=== PATIENT | female | born 1955 | race Caucasian/White ===

== ENCOUNTER 2023-04-02 08:25 | Day surgery (SDC) | payer MEDICARE, SELFPAY ==
[2023-02-18 15:01] VITALS: BMI 31.0
[2023-04-02 09:36] VITALS: BP 133/71; PULSE 79; RESP 16; TEMP 36.2; O2SAT 97; BMI 31.7
[2023-04-02 09:50] LABS: Glucose Point of Care 207 mg/dl (65-105)
[2023-04-02] MEDS: LACTATED RINGERS 1,000 ML 150 ML IV CONT (09:51)
--- NOTE | 2023-04-02 10:05 | WPDANESEPPF ---
Anes - Initial Pre Proc Eval Procedure: Operation Date: 04/02/23 11:00 Proposed Procedures p Diagnostic Colonoscopy - Demar Napier MD Date/Time: 04/02/23 10:05 Surgeon: Demar Napier MD Pre Op Diagnosis: RLQ Pain, LLQ Pain, Other Fecal Abnormalities Patient Data Age: 67 Gender: F Height: 1.52 m Weight: 73.7 kg Last Vital Signs Temp 36.2 C L 04/02/23 09:36 Pulse 79 04/02/23 09:36 Resp 16 04/02/23 09:36 BP 133/71 04/02/23 09:36 Pulse Ox 97 04/02/23 09:36 O2 Del Method Room Air 04/02/23 09:36 Allergies Allergy/AdvReac Type Severity Reaction Status Date / Time naproxen AdvReac Itching Verified 04/02/23 09:34 Sulfa (Sulfonamide AdvReac Itching Verified 04/02/23 09:34 Antibiotics) Home Medications Medication Instructions Recorded Confirmed Type atorvastatin 40 mg tablet 40 mg PO DAILY 12/20/22 04/02/23 History furosemide 20 mg tablet 20 mg PO QAM 12/20/22 04/02/23 History levothyroxine 125 mcg tablet 125 mcg PO DAILY 12/20/22 04/02/23 History metformin 500 mg tablet,extended 500 mg PO DAILY 12/20/22 04/02/23 History release 24 hr sertraline 100 mg tablet 100 mg PO DAILY 12/20/22 04/02/23 History clopidogrel 75 mg tablet 75 mg PO DAILY 12/26/22 04/02/23 History Laboratory Tests 04/02/23 09:48 POC Capillary Glucose 207 H mg/dl (65-105) Patient hx anesthesia problems: none Family hx anesthesia problems: none Results Review: All pre-operative results and documents have been reviewed as part of the pre-operative evaluation. [facility] Past Medical History Medical History Allergies Bilateral lower abdominal cramping Bloating symptom CAD (coronary artery disease) Diabetes Encounter for screening colonoscopy History of Clostridium difficile infection Hx of blood clots Hypothyroidism Loose stools Tobacco use Surgical History Surgical History (Updated 04/02/23 @ 10:17 by Didier Lugo DO) History of coronary artery stent placement x1 Hx of cholecystectomy Family History Family History (Updated 12/26/22 @ 14:03 by Vi Roman MA) Father Diabetes mellitus Cancer Mother Diabetes mellitus Social History Social History (Updated 12/26/22 @ 14:04 by Vi Roman MA) Smoking status: Current every day smoker Tobacco type: cigarettes Alcohol intake: never Substance use: never Substance use type: does not use Living arrangements: alone Spiritual care concerns: No Anes - Eval Final PreProcedure Day of Procedure 04/02/23 10:05 Patient weight: obese Heart: regular rate and rhythm Lungs: clear to auscultation Airway: Mallampati scale class II Neurological: alert and oriented Last oral intake: >/= 8 hours ASA classification: III Emergent: no Anesthetic plan: proceed Anesthesia type and monitoring: general GIVS and standard monitoring Results Review: All pre-operative results and documents have been reviewed as part of the pre-operative evaluation. Informed Consent: The patient's anesthetic plan and its attendant risks and benefits were discussed with the patient/family/POA. Questions were solicited and answers provided to the satisfaction of the patient/family/POA.
--- NOTE | 2023-04-02 10:06 | SUR.PREOP ---
DR WILSON NOTIFIED OF PT'S BLOOD SUGAR OF 207
--- NOTE | 2023-04-02 10:08 | PM.HPGS ---
History of Present Illness History of Present Illness Consent: Risks, benefits, and alternatives have been discussed and questions answered. Patient agrees to proceed with procedure. Chief complaint: RLQ Pain, LLQ Pain, Other Fecal Abnormalities Narrative: Frances Lazo is a 67 year old female referred for colonoscopy. Patient has a history of C difficile colitis 1 year ago. Patient reports she was hospitalized in August at [facility]. She was told she had enteritis. Patient currently complains of abdominal bloating. She has abdominal distention. Her stools have resolved. She states that she was given no specific diagnosis. Colonoscopy requested this time. 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 Has not tried Gas-X or similar agents. Family history is noncontributory. Review of Systems Review of Systems: Review of systems noncontributory. [facility] Past Medical History Medical History Allergies Bilateral lower abdominal cramping Bloating symptom Diabetes Encounter for screening colonoscopy History of Clostridium difficile infection Hx of blood clots Loose stools Tobacco use Surgical History Surgical History (Updated 12/26/22 @ 14:54 by RUDI Post) Hx of cholecystectomy Family History Family History (Updated 12/26/22 @ 14:03 by Vi Roman MA) Father Diabetes mellitus Cancer Mother Diabetes mellitus Social History Social History (Updated 12/26/22 @ 14:04 by Vi Roman MA) Smoking status: Current every day smoker Tobacco type: cigarettes Alcohol intake: never Substance use: never Substance use type: does not use Living arrangements: alone Spiritual care concerns: No Meds Home Medications and Allergies Home Medications Medication Instructions Recorded Confirmed Type atorvastatin 40 mg tablet 40 mg PO DAILY 12/20/22 04/02/23 History furosemide 20 mg tablet 20 mg PO QAM 12/20/22 04/02/23 History levothyroxine 125 mcg tablet 125 mcg PO DAILY 12/20/22 04/02/23 History metformin 500 mg tablet,extended 500 mg PO DAILY 12/20/22 04/02/23 History release 24 hr sertraline 100 mg tablet 100 mg PO DAILY 12/20/22 04/02/23 History clopidogrel 75 mg tablet 75 mg PO DAILY 12/26/22 04/02/23 History Allergies Allergy/AdvReac Type Severity Reaction Status Date / Time naproxen AdvReac Itching Verified 04/02/23 09:34 Sulfa (Sulfonamide AdvReac Itching Verified 04/02/23 09:34 Antibiotics) Vital Signs Vital Signs - 24 hr 04/02/23 09:36 Temperature 97.2 F L Pulse Rate 79 Respiratory Rate 16 Blood Pressure 133/71 Pulse Oximetry 97 Oxygen Delivery Room Air Exam Narrative: Physical exam reveals patient signs stable. HEENT exam is unremarkable. Patient is anicteric. Lungs are clear to auscultation and percussion. Heart is without murmur or extra sounds. Abdomen bowel sounds are present soft nontender with no hepatosplenomegaly. Digital external rectal exam normal. Assessment and Plan Assessment and plan (1) Encounter for screening colonoscopy: Code(s): Z12.11 - Encounter for screening for malignant neoplasm of colon Status: Acute Assessment and Plan: Patient presents for screening colonoscopy. She may have postinfectious irritable bowel syndrome. Fiber supplementation with FiberCon and consideration of GasEX for bloating is recommended. Further recommendations may be given after endoscopy. (2) Bloating symptom: Code(s): R14.0 - Abdominal distension (gaseous) Status: Acute (3) Bilateral lower abdominal cramping: Code(s): R10.31 - Right lower quadrant pain; R10.32 - Left lower quadrant pain Status: Acute
[2023-04-02 11:15] VITALS: BP 95/56; PULSE 75; RESP 16; O2SAT 96
[2023-04-02 11:25] VITALS: BP 104/64; PULSE 69; RESP 16; O2SAT 97
--- NOTE | 2023-04-02 11:26 | WPDANESPN ---
Anes - Prog Note Post-Op Date/Time: 04/02/23 11:26 Cardiovascular status: normal Respiratory status: normal Airway patency: baseline Mental status: baseline Post-Op hydration status: normal Vital Signs: Last Vital Signs Temp 36.2 C L 04/02/23 09:36 Pulse 75 04/02/23 11:15 Resp 16 04/02/23 11:15 BP 95/56 L 04/02/23 11:15 Pulse Ox 96 04/02/23 11:15 O2 Del Method Room Air 04/02/23 11:15 Pain Score (VAS): 0 I/O: Intake & Output 04/01/23 04/02/23 04/02/23 23:59 07:59 15:59 Intake Total 400 Balance 400 04/02/23 09:48 POC Capillary Glucose 207 H Post-procedural complaints: none Patient Feedback: Patient satisfied with anesthetic care. Other Findings: Patient vital signs back to baseline. Patient denies nausea and vomiting. Patient's pain under control. Patient OK for discharge.
[2023-04-02 11:35] VITALS: BP 125/91; PULSE 68; RESP 16; O2SAT 99
== END 2023-04-02 11:46 | disposition home or self-care (01) ==
PROVIDERS: PCP Internal Medicine; Visit Provider Internal Medicine Gastroenterology
PROC: 0DJD8ZZ Inspection of Lower Intestinal Tract, Via Natural or Artificial Opening Endoscopic (ICD-10-PCS; CPT 45378; principal; 2023-04-02 11:00)
DX: Z12.11 Encounter for screening for malignant neoplasm of colon (principal); R14.0 Abdominal distension (gaseous); K57.30 Diverticulosis of large intestine without perforation or abscess without bleeding; K64.8 Other hemorrhoids
CPT/HCPCS: 45378

== ENCOUNTER 2023-09-09 15:27 | Outpatient (CLI) | payer MEDICARE, SELFPAY ==
--- NOTE | ~2023-09-09 | XR_ITS ---
XR abdomen/kub 1V Ordering provider: RUDI Post History: . R14.0 - Abdominal distension (gaseous)PAIN WHOLEABDOMEN 6 MO . Comparison: None. FINDINGS: BOWEL: Nonobstructive bowel gas pattern. ORGANOMEGALY: None. SIGNIFICANT PATHOLOGIC CALCIFICATIONS: None. OTHER: No free air is seen under the diaphragm. Degenerative the spine. Mild levoscoliosis. Pubic symphysitis. IMPRESSION: NO ACUTE ABDOMINAL FINDINGS. Reviewed, dictated and finalized at location A.
[2023-09-09 15:56] LABS: Hematocrit 43.7 % (37.0-47.0); Hemoglobin 14.1 g/dL (12.0-15.0); Mean Corpuscular HGB Conc 32.3 g/dl (32-36); Mean Corpuscular Hemoglobin 30.9 pg (26-34); Mean Corpuscular Volume 95.8 fl (80-100); Mean Platelet Volume 11.6 fl (7.4-10.4); Platelet Count Result 220 k/mm3 (150-375); Red Blood Count 4.56 M/mm3 (4.2-5.4); Red Cell Distribution Width 13.3 % (11.5-14.5); White Blood Count 9.5 K/mm3 (4.5-10.0)
[2023-09-09 16:46] LABS: Alanine Aminotransferase 42 U/L (6-35); Albumin Level 4.9 g/dL (3.5-5.1); Alkaline Phosphatase 151 U/L (38-126); Anion Gap 16 mmol/L (4-12); Aspartate Amino Transferase 61 U/L (14-36); Bilirubin,Total 1.3 mg/dL (0.2-1.3); Blood Urea Nitrogen 23 mg/dL (7-17); CRP < 0.5 mg/dL (<1.0); Calcium 9.3 mg/dL (8.4-10.2); Carbon Dioxide 24 mmol/L (22-30); Chloride 97 mmol/L (98-107); Estimated Glomerular Filt Rate > 60; Glucose 399 mg/dL (65-110); Potassium 3.8 mmol/L (3.4-5.0); Sodium 137 mmol/L (137-145)
[2023-09-09 16:58] LABS: Erythrocyte Sedimentation Rate 15 mm/hr (0-20)
[2023-09-12 03:25] LABS: Immunoglobulin A 371 mg/dL (70-320); TTG IGA AB <1.0 U/mL
== END 2023-09-09 15:28 | disposition home or self-care (01) ==
LOC: ANHLAB 15:32
PROVIDERS: PCP Internal Medicine; Visit Provider Nurse Practitioner Family
DX: R14.0 Abdominal distension (gaseous) (principal); R10.9 Unspecified abdominal pain; R19.7 Diarrhea, unspecified; T78.40XA Allergy, unspecified, initial encounter
CPT/HCPCS: 36415; 74018; 80053; 82784; 85027; 85652; 86140; 86364

== ENCOUNTER 2023-09-30 09:37 | Outpatient (NON) | payer MEDICARE, SELFPAY ==
[2023-09-30 11:17] LABS: Toxigenic C. Diff NEGATIVE (NEGATIVE)
[2023-10-01 14:49] LABS: H pylori Ag Stool RESULT: Not Detected
[2023-10-06 06:14] LABS: Fecal Fat, Ql Normal (Normal)
[2023-10-08 22:59] LABS: Pancreatic Elastase, Stool 399 mcg/g
== END 2023-09-30 09:38 | disposition home or self-care (01) ==
LOC: ANHLAB 09:39
PROVIDERS: PCP Internal Medicine; Visit Provider Nurse Practitioner Family
DX: R14.0 Abdominal distension (gaseous) (principal); R10.9 Unspecified abdominal pain; R19.7 Diarrhea, unspecified; Z86.19 Personal history of other infectious and parasitic diseases
CPT/HCPCS: 82653; 82705; 87045; 87269; 87338; 87427; 87449; 87493

== ENCOUNTER 2023-10-14 14:55 | Outpatient (CLI) | payer MEDICARE, SELFPAY ==
[2023-10-14 15:57] LABS: Prothrombin Time 13.3 Seconds (11.1-14.7)
[2023-10-14 15:59] LABS: Iron 140 ug/dL (37-170)
[2023-10-14 16:08] LABS: Percent Iron Saturation 34 % (20-50)
[2023-10-14 16:22] LABS: Hepatitis B Surface Antigen Negative (Negative)
[2023-10-14 16:28] LABS: HAV RESULT Negative (Negative); Hepatitis B Core IgM Result Negative (Negative)
[2023-10-14 16:39] LABS: Hepatitis C Virus Antibody Negative (Negative)
[2023-10-15 14:23] LABS: Ceruloplasmin 25 mg/dL (14-48)
[2023-10-16 04:53] LABS: Hepatitis A Antibody Total NON-REACTIVE (NON-REACTIVE)
[2023-10-20 03:43] LABS: Actin Antibody (IgG) <20 U (<20)
[2023-10-20 09:28] LABS: LKM 1 Antibody <=20.0 U (<=20.0)
[2023-10-21 15:59] LABS: ALT 24 U/L (6-29); Alpha-2-Macroglobulin 387 mg/dL (106-279); Apolipoprotein A1 163 mg/dL (101-198); Fibrosis Score 0.61; Fibrosis Stage F3; GGT 69 U/L (3-65); Haptoglobin 232 mg/dL (43-212); Necroinflammat Act Grade A0; Reference ID 5064161; Total Bilirubin 0.8 mg/dL (0.2-1.2)
[2023-10-23 08:59] LABS: Mitochondrial (M2) Ab (IgG) <20.0 U
== END 2023-10-14 14:56 | disposition home or self-care (01) ==
PROVIDERS: PCP Internal Medicine; Visit Provider Nurse Practitioner Family
DX: R79.89 Other specified abnormal findings of blood chemistry (principal); R10.9 Unspecified abdominal pain
CPT/HCPCS: 36415; 80074; 81596; 82104; 82390; 82728; 83520; 83540; 83550; 85610; 86038; 86039; 86364; 86376; 86708

== ENCOUNTER 2023-10-28 08:02 | Outpatient (CLI) | payer MEDICARE, SELFPAY ==
--- NOTE | ~2023-10-28 | US_ITS ---
Limited Abdominal Sonogram: Real-time sonographic imaging of the right upper quadrant was performed. Clinical History: Abnormal blood chemistry findings Findings: The liver appears echogenic, with no evidence of mass lesion or bile duct dilatation. Live r measures 19.6 cm in length. Main portal vein demonstrates normal direction of flow. The gallbladder is well absent, compatible prior cholecystectomy. The common bile duct measures 5 mm. The visualize d pancreas, aorta, and IVC are unremarkable. Impression: Diffuse fatty infiltration of the liver, with associated hepatomegaly. Reviewed, dictated and finalized at location M. Impression: Diffuse fatty infiltration of the liver, with associated hepatomegaly.
== END 2023-10-28 08:03 | disposition home or self-care (01) ==
PROVIDERS: PCP Internal Medicine; Visit Provider Nurse Practitioner Family
DX: R79.89 Other specified abnormal findings of blood chemistry (principal); K76.0 Fatty (change of) liver, not elsewhere classified
CPT/HCPCS: 76705

== ENCOUNTER 2023-12-04 12:07 | Day surgery (SDC) | payer MEDICARE, SELFPAY ==
[2023-11-26 15:12] VITALS: BMI 30.2
--- NOTE | 2023-12-04 07:01 | WPDANESEPPF ---
Anes - Initial Pre Proc Eval Procedure: Operation Date: 12/04/23 14:00 Proposed Procedures p Esophagogastroduodenoscopy - Demar Napier MD Date/Time: 12/04/23 07:01 Surgeon: Demar Napier MD Pre Op Diagnosis: Abdominal Distension Patient Data Age: 67 Gender: F Height: 1.52 m Weight: 70.307 kg Allergies Allergy/AdvReac Type Severity Reaction Status Date / Time naproxen AdvReac Itching Verified 12/04/23 12:54 Sulfa (Sulfonamide AdvReac Itching Verified 12/04/23 12:54 Antibiotics) Home Medications Medication Instructions Recorded Confirmed Type atorvastatin 40 mg tablet 40 mg PO DAILY 12/20/22 11/26/23 History furosemide 20 mg tablet 40 mg PO QAM 12/20/22 11/26/23 History levothyroxine 125 mcg tablet 125 mcg PO DAILY 12/20/22 11/26/23 History metformin 500 mg tablet,extended 500 mg PO DAILY 12/20/22 11/26/23 History release 24 hr sertraline 100 mg tablet 100 mg PO DAILY 12/20/22 11/26/23 History clopidogrel 75 mg tablet 75 mg PO DAILY 12/26/22 11/26/23 History amlodipine 2.5 mg tablet 2.5 mg PO DAILY 09/09/23 11/26/23 History dicyclomine 10 mg capsule 10 mg PO TID 1 month #90 caps 10/14/23 11/26/23 Rx lansoprazole 15 mg capsule,delayed 15 mg PO DAILY 1 month #30 caps 10/14/23 11/26/23 Rx release (Prevacid 24Hr) aspirin 81 mg tablet 81 mg PO DAILY 11/11/23 11/26/23 History Patient hx anesthesia problems: none Family hx anesthesia problems: none Results Review: All pre-operative results and documents have been reviewed as part of the pre-operative evaluation. [facility] Past Medical History Medical History Abdominal bloating Abdominal pain Allergies Bilateral lower abdominal cramping Bloating symptom CAD (coronary artery disease) Diabetes Diarrhea Elevated LFTs Encounter for screening colonoscopy History of Clostridium difficile infection HTN (hypertension) Hx of blood clots Hypothyroidism Loose stools Postprandial abdominal bloating Tobacco use Surgical History Surgical History History of cardiac cath History of coronary artery stent placement x1 Hx of cholecystectomy Family History Family History Father Diabetes mellitus Cancer Mother Diabetes mellitus Social History Social History Years smoked: 53 Smoking status: Current every day smoker Tobacco type: cigarettes Alcohol intake: never Substance use: never Substance use type: does not use Living arrangements: with family Spiritual care concerns: No Anes - Eval Final PreProcedure Day of Procedure 12/04/23 07:01 Patient weight: obese Heart: regular rate and rhythm Lungs: clear to auscultation Airway: Mallampati scale class II Neurological: alert and oriented Last oral intake: >/= 8 hours ASA classification: III Emergent: no Anesthetic plan: proceed Anesthesia type and monitoring: general GIVS and standard monitoring Results Review: All pre-operative results and documents have been reviewed as part of the pre-operative evaluation. Informed Consent: The patient's anesthetic plan and its attendant risks and benefits were discussed with the patient/family/POA. Questions were solicited and answers provided to the satisfaction of the patient/family/POA.
[2023-12-04 13:00] VITALS: BP 138/66; PULSE 80; RESP 18; TEMP 36.7; O2SAT 96
[2023-12-04 13:15] LABS: Glucose Point of Care 148 mg/dl (65-105)
[2023-12-04] MEDS: LACTATED RINGERS 1,000 ML 150 ML IV CONT (13:15)
--- NOTE | 2023-12-04 13:28 | PM.HPGS ---
History of Present Illness History of Present Illness Consent: Risks, benefits, and alternatives have been discussed and questions answered. Patient agrees to proceed with procedure. Chief complaint: Abdominal Distension Narrative: Frances Lazo is a 67 year old female referred for EGD. Patient complains of abdominal bloating after eating. Patient had colonoscopy in March which revealed diverticulosis and internal hemorrhoids. Ultrasound revealed no evidence of ascites. EGD is now requested because of ongoing complaints bloating after eating. Review of Systems Review of Systems: All systems reviewed & are unremarkable except as noted in HPI and below PMFSH Past Medical History Medical History Abdominal bloating Abdominal pain Allergies Bilateral lower abdominal cramping Bloating symptom CAD (coronary artery disease) Diabetes Diarrhea Elevated LFTs Encounter for screening colonoscopy History of Clostridium difficile infection HTN (hypertension) Hx of blood clots Hypothyroidism Loose stools Postprandial abdominal bloating Tobacco use Surgical History Surgical History History of cardiac cath History of coronary artery stent placement x1 Hx of cholecystectomy Family History Family History Father Diabetes mellitus Cancer Mother Diabetes mellitus Social History Social History Years smoked: 53 Smoking status: Current every day smoker Tobacco type: cigarettes Alcohol intake: never Substance use: never Substance use type: does not use Living arrangements: with family Spiritual care concerns: No Meds Home Medications and Allergies Home Medications Medication Instructions Recorded Confirmed Type atorvastatin 40 mg tablet 40 mg PO DAILY 12/20/22 11/26/23 History furosemide 20 mg tablet 40 mg PO QA 12/20/22 11/26/23 History levothyroxine 125 mcg tablet 125 mcg PO DAILY 12/20/22 11/26/23 History metformin 500 mg tablet,extended 500 mg PO DAILY 12/20/22 11/26/23 History release 24 hr sertraline 100 mg tablet 100 mg PO DAILY 12/20/22 11/26/23 History clopidogrel 75 mg tablet 75 mg PO DAILY 12/26/22 11/26/23 History amlodipine 2.5 mg tablet 2.5 mg PO DAILY 09/09/23 11/26/23 History dicyclomine 10 mg capsule 10 mg PO TID 1 month #90 caps 10/14/23 11/26/23 Rx lansoprazole 15 mg capsule,delayed 15 mg PO DAILY 1 month #30 caps 10/14/23 11/26/23 Rx release (Prevacid 24Hr) aspirin 81 mg tablet 81 mg PO DAILY 11/11/23 11/26/23 History Allergies Allergy/AdvReac Type Severity Reaction Status Date / Time naproxen AdvReac Itching Verified 12/04/23 12:54 Sulfa (Sulfonamide AdvReac Itching Verified 12/04/23 12:54 Antibiotics) Vital Signs Vital Signs - 24 hr 12/04/23 13:00 Temperature 98.1 F Pulse Rate 80 Respiratory Rate 18 Blood Pressure 138/66 Pulse Oximetry 96 Oxygen Delivery Room Air Exam Narrative: Physical exam reveals patient to be alert. Vital signs stable. HEENT exam is unremarkable. Patient is anicteric. Lungs are clear to auscultation and percussion is without murmur or extra sounds. Abdomen bowel sounds are present soft nontender with no organomegaly. Digital external rectal exam normal. Assessment and Plan Assessment and plan (1) Postprandial abdominal bloating: Code(s): R14.0 - Abdominal distension (gaseous) Status: Acute Assessment and Plan: EGD now requested because of abdominal bloating after eating. Their recommendations may be given after endoscopy.
[2023-12-04 14:33] VITALS: BP 83/58; PULSE 69; RESP 15; O2SAT 100
--- NOTE | 2023-12-04 14:39 | WPDANESPN ---
Anes - Prog Note Post-Op Date/Time: 12/04/23 14:39 Cardiovascular status: normal Respiratory status: normal Airway patency: baseline Mental status: baseline Post-Op hydration status: normal Vital Signs: Last Vital Signs Temp 36.7 C 12/04/23 13:00 Pulse 80 12/04/23 13:00 Resp 18 12/04/23 13:00 BP 138/66 12/04/23 13:00 Pulse Ox 96 12/04/23 13:00 O2 Del Method Room Air 12/04/23 13:00 Pain Score (VAS): 0 I/O: Intake & Output 12/03/23 12/04/23 12/04/23 23:59 07:59 15:59 Intake Total 300 Balance 300 12/04/23 13:12 POC Capillary Glucose 148 H Post-procedural complaints: none Patient Feedback: Patient satisfied with anesthetic care. Other Findings: Patient vital signs back to baseline. Patient denies nausea and vomiting. Patient's pain under control. Patient OK for discharge.
[2023-12-04 14:44] VITALS: BP 122/61; PULSE 67; RESP 15; O2SAT 100
[2023-12-04 14:53] VITALS: BP 134/73; PULSE 69; RESP 16; O2SAT 100
== END 2023-12-04 15:06 | disposition home or self-care (01) ==
PROVIDERS: PCP Nurse Practitioner Family; Visit Provider Internal Medicine Gastroenterology
PROC: 0DJ08ZZ Inspection of Upper Intestinal Tract, Via Natural or Artificial Opening Endoscopic (ICD-10-PCS; CPT 43235; principal; 2023-12-04 14:00)
DX: R14.0 Abdominal distension (gaseous) (principal); K25.3 Acute gastric ulcer without hemorrhage or perforation
CPT/HCPCS: 43239

== ENCOUNTER 2024-01-18 16:05 | Inpatient (IN) | payer MEDICARE, SELFPAY ==
[2024-01-18] VITALS (40 sets, daily range): BP systolic 70–129; BP diastolic 37–80; PULSE 86–110; RESP 14–32; TEMP 36.4–37.2; O2SAT 86–100; BMI 32.6
--- NOTE | ~2024-01-18 | CT_ITS ---
EXAMINATION: CT brain wo con DATE: 01/31/2024 08:50 INDICATION: Encephalopathy TECHNIQUE: Computed tomography (CT) of the head was performed without intravenous contrast. The mA wa s adjusted according to patient size. Iterative reconstruction technique was employed. Exam dose: 60 5.33 mGy-cm total exam DLP. COMPARISON: 01/19/2024 CT brain FINDINGS: No intracranial mass lesion or hemorrhage or cerebrovascular accident is noted. There is cerebral atherosclerosis and diminished attenuation the cerebral white matter, likely due to chronic small vessel ischemic changes. No midline shift or mass effect. No subdural or epidural hematoma. The orbital contents are unremarkable. Incidentally noted is partial inclusion of prominent periapical abscesses upper left teeth There is moderately compressed the left maxillary sinus. The paranasal sinuses otherwise are unremark able There are bilateral partial mastoid air cell effusions. No fracture or suspicious bone destruction or osteoblastic lesion of the skeletal. IMPRESSION: Cerebral atherosclerosis and chronic small vessel ischemic changes of the cerebral white matter No acute intracranial finding Moderate mucoperiosteal thickening of the left sphenoid sinus and partial opacification of mastoid ai r cells bilaterally Reviewed, dictated and finalized at [facility]. Reviewed, dictated and finalized at location [facility]. UCTION ADMINISTRATIVE ASSISTANT IMPRESSION: Cerebral atherosclerosis and chronic small vessel ischemic changes of the cerebral white matter No acute intracranial finding Moderate mucoperiosteal thickening of the left sphenoid sinus and partial opaci fication of mastoid air cells bilaterally
--- NOTE | ~2024-01-18 | XR_ITS ---
XR chest ET placement Ordering provider: John Dunbar MD History: 68 years Female with . After intubation to confirm ET placement . Comparison: January 21, 2024 FINDINGS: MEDIASTINUM: The cardiac silhouette is not enlarged. Endotracheal tube is seen with the tip above the isabel by about 2.8 cm. Nasogastric tube is seen extending to the stomach. LUNGS: No effusions or pneumothorax. Bilateral interstitial and alveolar opacification is seen sugges tive of pneumonia versus ARDS versus pulmonary edema. Clinical correlation advised. Changes increased compared to previous study. OTHER: No free air under the diaphragm. IMPRESSION: Bilateral alveolar and interstitial opacification suggestive of pneumonia versus pulmonary edema vers us ARDS. Reviewed, dictated and finalized at location A. RETTE STAMPER IMPRESSION: Bilateral alveolar and interstitial opacification suggestive of pneumonia versu s pulmonary edema versus ARDS.
--- NOTE | ~2024-01-18 | XR_ITS ---
XR abdomen gastric tube insert Ordering provider: John Dunbar MD History: . og tube insertion . Comparison: None. FINDINGS: BOWEL: Nasogastric tube is seen with the tip projecting over the upper abdomen. Nonobstructive bowel gas pattern. OTHER: Bilateral lung alveolar and interstitial opacification. No free air is seen under the diaphrag m. IMPRESSION: Nasogastric tube projects over the upper abdomen. Reviewed, dictated and finalized at location A. GRASS MANAGEMENT PROFESSOR
--- NOTE | ~2024-01-18 | XR_ITS ---
EXAMINATION: XR chest 1V portable DATE: 02/01/2024 05:39 INDICATION: Pneumonia. TECHNIQUE: A single frontal view of the chest was obtained. COMPARISON: Chest single view 01/31/2024, chest CT 01/22/2024 FINDINGS: There are lucencies in the lungs, consistent with emphysema. There are airspace opacities i n all lung zones bilaterally with a lower lung predominance. No pleural effusion or pneumothorax. Car diomegaly is noted. A right internal jugular central venous catheter is seen with tip at the superior cavoatrial junction. IMPRESSION: 1. Stable diffuse lung disease, consistent with pneumonia. 2. Emphysema. 3. Cardiomegaly. Reviewed, dictated and finalized at location A. ARCH METHODS INSTRUCTOR
--- NOTE | ~2024-01-18 | US_ITS ---
EXAMINATION: US venous doppler [facility] DATE: 01/30/2024 14:37 INDICATION: Fever. TECHNIQUE: Grayscale ultrasound images without and with compression and Doppler ultrasound images of the bilateral lower extremity veins were obtained. COMPARISON: None. FINDINGS: The right common femoral vein is partially compressible small amount of nonocclusive noncompressible thrombus. This reportedly at the site of a recently removed central venous catheter. The visualized p ortions of right profunda (deep) femoral vein, femoral vein, popliteal vein, posterior tibial veins, peroneal veins, gastrocnemius vein and greater saphenous vein outflow are patent. The visualized portions of left common femoral vein, profunda femoral vein, femoral vein, popliteal v ein, posterior tibial veins, peroneal veins, gastrocnemius vein and greater saphenous vein outflow ar e patent. IMPRESSION: 1. Small amount of nonocclusive deep venous thrombosis at the right common femoral vein reported site of a recently removed central venous catheter. No other deep venous thrombosis in the remainder of t he bilateral lower limbs. Reviewed, dictated and finalized at location A. CLERK IMPRESSION: 1. Small amount of nonocclusive deep venous thrombosis at the right common femo ral vein reported site of a recently removed central venous catheter. No other deep venous thrombosis in the remainder of the bilateral lower limbs.
--- NOTE | ~2024-01-18 | XR_ITS ---
EXAMINATION: XR chest 1V portable DATE: 01/28/2024 05:23 INDICATION: Respiratory failure. TECHNIQUE: A single frontal view of the chest was obtained. COMPARISON: Chest single view 01/27/2024 FINDINGS: There are lucencies in the lungs, consistent with emphysema. There are interstitial and air space opacities in all lung zones bilaterally, worst at left lung base. No pleural effusion or pneumo thorax. The heart size is normal. The endotracheal tube tip is 5.7 cm above the isabel. The nasogastr ic tube tip is beyond the inferior margin of the radiograph, but at least to the stomach. A right int ernal jugular central venous catheter is seen with tip at the superior cavoatrial junction. IMPRESSION: 1. Stable diffuse lung disease, consistent with pneumonia superimposed on emphysema. Reviewed, dictated and finalized at location A. ATOR AND TRUCK DRIVER IMPRESSION: 1. Stable diffuse lung disease, consistent with pneumonia superimposed on emphy sema.
--- NOTE | ~2024-01-18 | XR_ITS ---
CHEST RADIOGRAPH CLINICAL HISTORY: increase oxygen . COMPARISON: 01/20/2024 at 5:20 AM (12 hours earlier) TECHNIQUE: Single portable view of the chest. FINDINGS The cardiomediastinal silhouette is partially obscured. Air opacification of the trachea and right mainstem bronchus. No discrete air opacification projecting over the left mainstem bronchus. Consolidation of the left lower and upper lobes. Patchy opacification of the right mid to lower lung field. IMPRESSION: No discrete air opacification projecting over the left mainstem bronchus with consolidation of the le ft lower and upper lobes. Patchy opacification of the right mid to lower lung field. Reviewed, dictated and finalized at location A. RER ADJUSTABLE STEEL JOIST IMPRESSION: No discrete air opacification projecting over the left mainstem bronchus with c onsolidation of the left lower and upper lobes. Patchy opacification of the right mid to lower lung field.
--- NOTE | ~2024-01-18 | XR_ITS ---
EXAMINATION: XR chest 1V portable DATE: 01/26/2024 09:35 INDICATION: Central line placement. TECHNIQUE: A single frontal view of the chest was obtained. COMPARISON: Chest single view at 5:51 AM, chest CT 01/22/2024 FINDINGS: There are lucencies in the lungs, consistent with emphysema. There are interstitial and air space opacities in all lung zones bilaterally, worst at left lung base. There is a small left pleural effusion. No pneumothorax. The heart size is normal. The endotracheal tube tip is 5.3 cm above the c tonia. A right internal jugular central venous catheter is seen with tip at the superior cavoatrial j unction. The nasogastric tube tip is beyond the inferior margin of the radiograph, but at least to th e stomach. IMPRESSION: 1. Central line tip at the superior cavoatrial junction. 2. Stable diffuse lung disease, consistent with pneumonia superimposed on emphysema. 3. Small left pleural effusion. Reviewed, dictated and finalized at location A. CUTTER APPRENTICE IMPRESSION: 1. Central line tip at the superior cavoatrial junction. 2. Stable diffuse lung disease, consistent with pneumonia superimposed on emphy sema. 3. Small left pleural effusion.
--- NOTE | ~2024-01-18 | CT_ITS ---
CT head without contrast Indication: Dizziness Technique: Serial scans were obtained through the brain without the administration of contrast. Dose reduction technique was used on this scan by utilizing automated exposure control and iterative recon struction technique. The dose-length product (DLP) was 681.00 mGy-cm. Findings: There is no evidence of intracranial hemorrhage, mass lesion, or acute infarct. The ventri cles and subarachnoid spaces are dilated, consistent with mild atrophy. Low attenuation regions are seen within the periventricular white matter bilaterally, likely representing changes from chronic mi crovascular ischemic disease. There is no evidence of edema, mass effect or midline shift. The visu alized paranasal sinuses and mastoid air cells are clear. Impression: No intracranial hemorrhage, mass, or acute infarct. Atrophy and chronic white matter changes, as above. Reviewed, dictated and finalized at location . ONAL TRAINER Impression: No intracranial hemorrhage, mass, or acute infarct. Atrophy and chronic white matter changes, as above.
--- NOTE | ~2024-01-18 | XR_ITS ---
EXAMINATION: XR chest 1V portable Exam Date/Time: 01/18/2024 16:35 SISTER SUPERIOR HISTORY: cough, dyspnea Comparison: None. RESULT: Lines, tubes, and devices: Coronary artery stent. Lungs and pleura: Segmental airspace disease in the left lower lung. Mild diffuse reticular opacitie s. Cardiomediastinal silhouette: Stable. Other: No acute osseous or upper abdominal finding. IMPRESSION: Segmental left lower lung consolidation concerning for pneumonia, overlying a background of mild inte rstitial pulmonary edema/senescent change Reviewed, dictated and finalized at location K. ER SUPERIOR IMPRESSION: Segmental left lower lung consolidation concerning for pneumonia, overlying a b ackground of mild interstitial pulmonary edema/senescent change
--- NOTE | ~2024-01-18 | XR_ITS ---
EXAMINATION: XR chest 1V portable DATE: 01/27/2024 05:28 INDICATION: Respiratory failure. TECHNIQUE: A single frontal view of the chest was obtained. COMPARISON: Chest single view 01/26/2024 FINDINGS: The patient is rotated to her left. There are lucencies in the lungs, consistent with emphy sema. There are interstitial and airspace opacities in all lung zones, worst in left lower lung zone. There is a small left pleural effusion. No pneumothorax. The heart size is normal. The endotracheal tube tip is 3.9 cm above the isabel. The nasogastric tube tip is beyond the inferior margin of the ra diograph, but at least to the stomach. A right internal jugular central venous catheter is seen with tip at the superior cavoatrial junction. IMPRESSION: 1. Stable diffuse lung disease, consistent with pneumonia superimposed on emphysema. 2. Stable small left pleural effusion. Reviewed, dictated and finalized at location A. UNICATIONS ADVISOR IMPRESSION: 1. Stable diffuse lung disease, consistent with pneumonia superimposed on emphy sema. 2. Stable small left pleural effusion.
--- NOTE | ~2024-01-18 | XR_ITS ---
XR chest 1V portable DATE: 01/30/2024 05:12 INDICATION: Respiratory failure TECHNIQUE: Portable AP chest on 01/30/2024 at 0456 hours COMPARISON: 01/29/2024 portable AP chest at 0517 hours FINDINGS: ET tube in satisfactory position 3.6 cm above isabel. NG tube in the stomach. Right internal jugular central venous catheter tip is situated near the superior cavoatrial junction. Cardiomegaly. Aortic calcification. Diffuse bilateral pulmonary interstitial infiltrates with some patchy consolidation primarily in the lower lung zones, left greater than right, mildly increased since 01/29/2024. No pleural effusion or pneumothorax. Osteopenia. Resection the lateral aspect of both clavicles. IMPRESSION: Diffuse mildly increased bilateral pulmonary infiltrates since 01/29/2024 Reviewed, dictated and finalized at location A. PHONIC RN IMPRESSION: Diffuse mildly increased bilateral pulmonary infiltrates since 01/02
--- NOTE | ~2024-01-18 | XR_ITS ---
Portable chest x-ray Comparison: 01/21/2024 Clinical History: Respiratory failure Findings: Endotracheal tube and NG tube remain in place. Patchy bibasilar and perihilar airspace con solidation present. Probable underlying COPD or chronic interstitial disease. Cardiomediastinal silh ouette is stable. Bones and soft tissues are unremarkable. Impression: Stable bibasilar/perihilar consolidation, consistent with pulmonary edema versus pneumonia. Underlying COPD or chronic interstitial disease. Support tubes. Reviewed, dictated and finalized at location . SHER DENTURE Impression: Stable bibasilar/perihilar consolidation, consistent with pulmonary edema versu s pneumonia. Underlying COPD or chronic interstitial disease. Support tubes.
--- NOTE | ~2024-01-18 | XR_ITS ---
EXAMINATION: XR chest 1V portable DATE: 01/29/2024 05:33 INDICATION: Respiratory failure TECHNIQUE: frontal view of the chest was obtained. COMPARISON: Chest radiograph dated 01/28/2024 FINDINGS: Endotracheal tube tip 3.5 cm above the isabel. Nasogastric tube with proximal side-port in the body o f the stomach and distal tip collimated off the study. Dual-lumen right internal jugular central veno us catheter with distal tip at the superior cavoatrial junction. Again seen are coarse reticular and airspace opacities throughout both lungs greatest but with some i nterval improvement in aeration at the bilateral lower lung zones. No pleural effusion or pneumothora x. Heart size is normal. Cholecystectomy clips in right upper quadrant. IMPRESSION: 1. Diffuse bilateral lung disease with decrease in the lower lung zones consistent with improving pne umonia. Reviewed, dictated and finalized at location A. ENT SERVICE COORDINATOR IMPRESSION: 1. Diffuse bilateral lung disease with decrease in the lower lung zones consist ent with improving pneumonia.
--- NOTE | ~2024-01-18 | XR_ITS ---
EXAMINATION: XR chest 1V portable DATE: 01/25/2024 05:57 INDICATION: Respiratory failure TECHNIQUE: frontal view of the chest was obtained. COMPARISON: Chest radiograph dated 01/24/2024 FINDINGS: Endotracheal tube tip 4.0 cm above the isabel. Nasogastric tube extends below the left hemidiaphragm with distal tip collimated off the study. Again seen are diffuse bilateral coarse reticular and airspace opacities most prominent at the bilate ral lung bases and with some improvement on the left. Likely small left pleural effusion. No pneumoth orax. The cardiomediastinal silhouette is normal. Cholecystectomy clips in right upper quadrant. IMPRESSION: 1. Diffuse bilateral lung disease with lower lung predominance and some improvement on the left. Diff erential includes pneumonia and/or ARDS. 2. Likely decreasing small left pleural effusion. Reviewed, dictated and finalized at location A. ING MACHINE UPKEEP MECHANIC IMPRESSION: 1. Diffuse bilateral lung disease with lower lung predominance and some improve ment on the left. Differential includes pneumonia and/or ARDS. 2. Likely decreasing small left pleural effusion.
--- NOTE | ~2024-01-18 | XR_ITS ---
EXAMINATION: XR chest 1V portable DATE: 01/26/2024 06:25 INDICATION: Respiratory failure. TECHNIQUE: A single frontal view of the chest was obtained. COMPARISON: Chest single view 01/25/2024, chest CT 01/22/2024 FINDINGS: There are lucencies in the lungs, consistent with emphysema. There are patchy airspace opac ities in all lung zones bilaterally. No pleural effusion or pneumothorax. The heart size is normal. T he endotracheal tube tip is 4.7 cm above the isabel. The nasogastric tube tip is beyond the inferior margin of the radiograph, but at least to the stomach. IMPRESSION: 1. Stable diffuse lung disease, consistent with pneumonia superimposed on emphysema. Reviewed, dictated and finalized at location A. CONTROL DIRECTOR IMPRESSION: 1. Stable diffuse lung disease, consistent with pneumonia superimposed on emphy sema.
--- NOTE | ~2024-01-18 | XR_ITS ---
XR chest 1V portable DATE: 01/31/2024 05:24 INDICATION: Bilateral pulmonary infiltrates TECHNIQUE: Portable AP chest on 01/31/2024 at 0456 hours COMPARISON: 01/30/2024 portable AP chest at 0456 hours FINDINGS: ET and NG tube in satisfactory position. Right internal jugular central venous catheter tip is situated near the superior cavoatrial junction. No pneumothorax is evident. Cardiomegaly. Aortic calcification. Diffuse bilateral pulmonary infiltrates again noted, most prominent in the lower lobes, including kasey e air bronchograms in the left lower lobe. Considering technical differences the infiltrates appear s table or mildly improved since 01/30/2024. Diffuse osteopenia. Status post cholecystectomy. IMPRESSION: Stable or mildly improved extensive bilateral pulmonary infiltrates, most prominent in th e lower lobes, especially left lower lobe Reviewed, dictated and finalized at location A. OR FIRMWARE ENGINEER IMPRESSION: Stable or mildly improved extensive bilateral pulmonary infiltrates , most prominent in the lower lobes, especially left lower lobe
--- NOTE | ~2024-01-18 | XR_ITS ---
Portable chest x-ray Comparison: 01/18/2024 Clinical History: Left lower lobe pneumonia Findings: There is left lower lobe consolidation with more hazy/interstitial disease in the perihila r regions and right lung base. Cardiomediastinal silhouette is stable. Bones and soft tissues are un remarkable. Impression: Left lower lobe consolidation with more hazy/interstitial disease in the perihilar regions and right lower lobe. Correlate for pulmonary edema/atelectasis versus pneumonia, with findings again worst at the left lower lobe. Reviewed, dictated and finalized at [facility]. ETY SAW OPERATOR Impression: Left lower lobe consolidation with more hazy/interstitial disease in the perihi lar regions and right lower lobe. Correlate for pulmonary edema/atelectasis reba alicia pneumonia, with findings again worst at the left lower lobe.
--- NOTE | ~2024-01-18 | XR_ITS ---
Portable chest x-ray Comparison: 01/22/2024 Clinical History: Respiratory failure Findings: Endotracheal tube and NG tube are in place. There is patchy bilateral airspace consolidati on, improved overall since prior exam, though with new airspace consolidation the right upper lobe. P robable underlying COPD or chronic interstitial disease. Cardiomediastinal silhouette is stable. Bon es and soft tissues are unremarkable. Impression: Overall improvement in patchy bilateral pulmonary consolidation, there is focal worsening of the righ t upper lobe. Correlate for bilateral pneumonia. Probable underlying COPD/chronic interstitial disease. Support tubes, as above. Reviewed, dictated and finalized at location . FEEDER Impression: Overall improvement in patchy bilateral pulmonary consolidation, there is focal worsening of the right upper lobe. Correlate for bilateral pneumonia. Probable underlying COPD/chronic interstitial disease. Support tubes, as above.
--- NOTE | ~2024-01-18 | XR_ITS ---
Portable chest x-ray Comparison: 02/02/2024 Clinical History: Respiratory failure Findings: Right IJ line unchanged. Stable extensive interstitial disease. Stable mild patchy airspac e disease, especially the lung bases and right upper lobe. Cardiomediastinal silhouette is stable. B ones and soft tissues are unremarkable. Impression: Stable patchy airspace disease with underlying chronic interstitial disease. Correlate for superimpos ed pneumonia or pulmonary edema. Stable support line. Reviewed, dictated and finalized at location . L MAKING SUPERVISOR Impression: Stable patchy airspace disease with underlying chronic interstitial disease. Co rrelate for superimposed pneumonia or pulmonary edema. Stable support line.
--- NOTE | ~2024-01-18 | XR_ITS ---
Portable chest x-ray Comparison: 01/20/2024 Clinical History: Respiratory failure Findings: Extensive bilateral pulmonary consolidation again present. Probable underlying interstitia l disease. Cardiomediastinal silhouette is stable. Bones and soft tissues are unremarkable. Impression: Extensive bilateral pulmonary consolidation. Correlate for pulmonary edema versus bilateral pneumonia . Suspected underlying chronic interstitial disease. Reviewed, dictated and finalized at [facility]. K AND WATCH HANDS DIPPER Impression: Extensive bilateral pulmonary consolidation. Correlate for pulmonary edema vers us bilateral pneumonia. Suspected underlying chronic interstitial disease.
--- NOTE | ~2024-01-18 | XR_ITS ---
Portable chest x-ray Comparison: 02/01/2024 Clinical History: Pneumonia Findings: Stable right-sided central venous line. Patchy airspace disease and interstitial prominenc e are again present. Cardiomediastinal silhouette is stable. Bones and soft tissues are unremarkable . Impression: Probable patchy bilateral pneumonia. Suspected underlying chronic interstitial disease. Reviewed, dictated and finalized at [facility]. D ORGANIZER Impression: Probable patchy bilateral pneumonia. Suspected underlying chronic interstitial disease.
--- NOTE | ~2024-01-18 | XR_ITS ---
EXAMINATION: XR abdomen obstructive series DATE: 01/19/2024 09:55 INDICATION: Abdominal pain and distention TECHNIQUE: Frontal supine and upright views of the abdomen were obtained. COMPARISON: CT dated 01/18/2024 FINDINGS: Small amount of gas scattered throughout nondilated loops of bowel in the abdomen and pelvis. No free intraperitoneal gas. Cholecystectomy clips in right upper quadrant. Right femoral central venous c atheter with distal tip at the level of the caudal-most inferior vena cava. Consolidation with air br onchograms at the left lower lung zone consistent with pneumonia better appreciated on prior CT. IMPRESSION: 1. No free intraperitoneal gas or dilated gas-filled loops of bowel to suggest obstruction. 2. Pneumonia in the left lower lung zone. Reviewed, dictated and finalized at location B. TH PSYCHOLOGIST
--- NOTE | ~2024-01-18 | US_ITS ---
EXAMINATION: US renal BI DATE: 01/24/2024 10:05 INDICATION: Acute renal insufficiency TECHNIQUE: Multiple ultrasound grayscale images of the kidneys were obtained. COMPARISON: None. FINDINGS: The right kidney measures 12.7 x 4.9 x 6.0 cm. The left kidney measures 12.5 x 6.3 x 5.6 cm. The kidn eys demonstrate normal echogenicity. There is no hydronephrosis in either kidney. No stones identifi ed. The bladder is is not visualized, likely decompressed with a Pressley catheter reportedly in place.. IMPRESSION: 1. Normal kidneys without hydronephrosis. Reviewed, dictated and finalized at location A. UNICATION EQUIPMENT REPAIRER
--- NOTE | ~2024-01-18 | CT_ITS ---
EXAMINATION: CTA chest PE abdomen pel DATE: 01/18/2024 18:03 INDICATION: epigastric tenderness, nausea, diarrhea, cough TECHNIQUE: Computed tomography angiography (CTA) of the chest was performed with 100 mL Omnipaque-350 intravenous contrast timed to evaluate the pulmonary arteries, followed by portal venous phase imagi ng of the abdomen and pelvis. Coronal maximum intensity projection 3D-reconstructions were created by the technologist. The dose-length product (DLP) was 1519.79 mGy-cm. Automated exposure control and i terative reconstruction technique were employed. COMPARISON: None. FINDINGS: CHEST: Lung parenchyma and airways: Segmental consolidations with air bronchograms in the left lower lobe wi th intervening areas of inter and intralobular septal thickening and groundglass opacity. Emphysemato us change. Pleura: Unremarkable. Thoracic inlet, axillae and chest wall: No thyroid or soft tissue mass. Thoracic aorta: No significant dilation. No dissection. Moderate calcified and noncalcified atheroscl erotic plaque Mediastinum: Normal. Heart and pericardium: Coronary artery stents. RV/LV ratio less than 1. Coronary artery calcifications: Absent. Thoracic bones: No acute osseous finding. Pulmonary arteries: Study quality: Adequate. Small nonocclusive subsegmental acute embolus in the lef t lower lobe (image [id number]). ABDOMEN/PELVIS: Liver: Enlarged Biliary/Gallbladder: Gallbladder is absent. No bile duct dilation. Pancreas: No mass or duct dilation. Spleen: Normal. Adrenals:Mild left adrenal thickening, likely hyperplasia Kidneys: No suspicious mass, obstructing stone, or hydronephrosis. GI tract: Small hiatal hernia. Surgical clips at the GE junction. No small or large bowel dilation. N ormal appendix. Diverticulosis without diverticulitis. Mesentery/Peritoneum: No ascites, mass, or free air. Retroperitoneum: No mass. Atherosclerotic abdominal aortic and/or arterial calcifications. Pelvis: Mild urinary bladder wall thickening and inflammatory change. Normal ovaries and uterus. Soft Tissues: Small fat-containing umbilical and bilateral inguinal hernias. Abdominopelvic bones: No acute osseous finding. IMPRESSION: Nonocclusive acute subsegmental pulmonary embolus in the left lower lobe. Very small clot burden. No evidence of right heart strain. Left lower lobe pneumonia. Mild hepatomegaly. Possible cystitis. Otherwise, no acute abdominopelvic process detected. Reviewed, dictated and finalized at location K. ORK CONTROLLER
--- NOTE | ~2024-01-18 | XR_ITS ---
XR abdomen/kub 1V DATE: 01/25/2024 08:47 INDICATION: Ileus TECHNIQUE: 2 portable supine AP views of the abdomen COMPARISON: 01/22/2024 CT chest abdomen pelvis 01/19/2024 obstructive series FINDINGS: There is an NG tube, distal tip overlying the distal stomach. Surgical clips, right upper quadrant, likely due to cholecystectomy. Right common femoral central venous catheter unchanged in position. The abdomen is relatively devoid of bowel gas. No apparent obstruction or free air is noted. Bilateral lower lung infiltrates are noted. IMPRESSION: NG tube in distal stomach Nonspecific abdomen Reviewed, dictated and finalized at Location A. Reviewed, dictated and finalized at location A. CIATE PROFESSOR OF MEDIA ARTS
--- NOTE | ~2024-01-18 | CT_ITS ---
CLINICAL INDICATION: Sepsis with pneumonia COMPARISON: Reference is made to a CT examination of the chest abdomen and pelvis dated 01/18/2024. TECHNIQUE: An unenhanced CT of the chest, abdomen and pelvis was performed utilizing multislice spira l technique reconstructed at 2.5 mm slice thickness. Coronal and sagittal reconstructions were perfo rmed. This CT examination was performed utilizing dose reduction techniques. DLP: 1215 mGy-cm FINDINGS/OBSERVATIONS: Lung: Interval intubation with the endotracheal tube in good position. Interval development of patchy groundglass opacification within the bilateral lung catherine with inters titial thickening and right basilar consolidation. This is a dramatic difference from previous examination performed 4 days earlier which demonstrated o nly left lower lobar consolidation which has minimally improved. 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 The heart is of normal size, without pericardial effusion. Mediastinum: The main pulmonary artery is enlarged, increased from previous examination The right ventricle remains of decreased caliber when compared to the left (no right heart strain). Limited evaluation for the presence or absence of mediastinal lymphadenopathy secondary to the lack o f intravenous contrast. Soft tissues of the chest: Unremarkable. Bones of the chest: No acute fracture. No lytic or blastic lesions are identified. Liver: The liver demonstrates heterogeneous attenuation and is borderline enlarged measuring 19 cm in longit udinal dimension. Interval development of perihepatic fluid, when compared with previous study. Gallbladder and biliary system: Surgically absent. Pancreas: Limited evaluation of the pancreas secondary to the lack of intravenous contrast. Spleen: The spleen demonstrates homogeneous attenuation and is not enlarged measuring 10 cm in longitudinal d imension. Kidneys: The interpolar region of the left kidney is asymmetric to the right, possibly due to positioning, unc hanged from prior. Adrenal glands: Global bilateral enlargement. Gastrointestinal tract: Orogastric tube extends to the stomach. Mural thickening within the rectosigmoid colon with multiple diverticula and prominence of the vascul ar rectum, largely unchanged from previous study. Radiopaque wires within the rectum. Appendix: The appendix is not definitively visualized. However, no pericecal inflammatory change is identified suggest the presence of acute appendicitis. Vasculature: Calcified atherosclerotic disease. Lymph nodes: No pathologically enlarged or morphologically suspicious lymph nodes within the retroperitoneum or at the root of the mesentery. Pelvic structures: The bladder is decompressed with a Pressley catheter, limiting its evaluation. The uterus is anteverted and anteflexed, and otherwise unremarkable. Body wall and musculoskeletal: Degenerative disease within the lumbar spine, with osteophyte formation, disc space narrowing, endpla te changes and facet arthropathy. No lytic or blastic lesions identified. IMPRESSION: Worsening respiratory status with bibasilar consolidation and interstitial thickening with patchy sera undglass opacification bilaterally -findings suggesting ARDS. Mural thickening within the rectosigmoid colon with multiple diverticula and prominence of the vasa r ecta, possibly early diverticulitis. Interval development of perihepatic fluid, compared with previous study. Reviewed, dictated and finalized at location A. 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 Mural thickening within the rectosigmoid colon with multiple diverticula and pr ominence of the vasa recta, possibly early diverticulitis. Interval development of perihepatic fluid, compared with previous study.
--- NOTE | ~2024-01-18 | US_ITS ---
BILATERAL LOWER EXTREMITY VENOUS ULTRASOUND Ordering provider: Lisa Anderson DO History: . Pulmonary embolism . Comparison: None. FINDINGS: RIGHT LOWER EXTREMITY VEINS: --COMMON FEMORAL: Patent and free of thrombus. Normal compressibility, phasic flow and augmentation. --PROXIMAL SUPERFICIAL FEMORAL: Patent and free of thrombus. Normal compressibility, phasic flow and augmentation. --DISTAL SUPERFICIAL FEMORAL: Patent and free of thrombus. Normal compressibility, phasic flow and au gmentation. --POPLITEAL: Patent and free of thrombus. Normal compressibility, phasic flow and augmentation. --POSTERIOR TIBIAL: Patent and free of thrombus. Normal compressibility, phasic flow and augmentation . LEFT LOWER EXTREMITY VEINS: --COMMON FEMORAL: Patent and free of thrombus. Normal compressibility, phasic flow and augmentation. --PROXIMAL SUPERFICIAL FEMORAL: Patent and free of thrombus. Normal compressibility, phasic flow and augmentation. --DISTAL SUPERFICIAL FEMORAL: Patent and free of thrombus. Normal compressibility, phasic flow and au gmentation. --POPLITEAL: Patent and free of thrombus. Normal compressibility, phasic flow and augmentation. --POSTERIOR TIBIAL: Patent and free of thrombus. Normal compressibility, phasic flow and augmentation . Central line is seen in the right groin. IMPRESSION: Negative bilateral lower extremity venous US. No deep vein thrombosis. Reviewed, dictated and finalized at location A. SSION DISCHARGE RN
--- NOTE | ~2024-01-18 | XR_ITS ---
EXAMINATION: XR chest 1V portable DATE: 01/24/2024 05:46 INDICATION: Respiratory failure TECHNIQUE: frontal view of the chest was obtained. COMPARISON: Chest radiograph dated 01/23/2024 FINDINGS: Endotracheal tube tip 4.6 cm above the isabel. Nasogastric tube extends below the left hemidiaphragm with distal tip collimated off the study. Worsening consolidation in the left lower lung zone with otherwise unchanged diffuse interstitial and mild patchy airspace opacities throughout the remainder of both lungs consistent with multifocal pne umonia. Small left pleural effusion not excludable. No pneumothorax. The cardiomediastinal silhouette is within normal limits for AP technique. Coronary artery stenting. Surgical clips in the upper abdo men. Widening of the right acromioclavicular joint which could be related to prior surgery or trauma. IMPRESSION: 1. Diffuse bilateral lung disease with worsening consolidation in the left lower lung zone consistent with multifocal pneumonia and/or ARDS. Reviewed, dictated and finalized at location A. 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 Diffuse bilateral lung disease with worsening consolidation in the left lowe r lung zone consistent with multifocal pneumonia and/or ARDS.
--- NOTE | 2024-01-18 16:26 | ED_ITS ---
HPI - SOB/Dyspnea General Chief Complaint: Shortness of Breath/Dyspnea <Andrea Hart PA-C - Last Filed: 01/18/24 23:29> Stated Complaint: cough <HOUSTON Ortega Last Filed: 01/18/24 23:29> Time Seen by Provider: 01/18/24 16:25 <HOUSTON Ortega Last Filed: 01/18/24 23:29> Source: patient <HOUSTON Ortega Last Filed: 01/18/24 23:29> Mode of arrival: ambulatory <HOUSTON Ortega Last Filed: 01/18/24 23:29> Limitations: no limitations <HOUSTON Ortega Last Filed: 01/18/24 23:29> History of Present Illness HPI Narrative: This is a 68-year-old female with PMH of DM type 2, CAD, tobacco use who presents to the ED for chief complaint of cough and dyspnea over the past 3 days. Family member is here reports patient had fever of 102? F at home. Cough is productive but no hemoptysis. Patient states that she felt very dizzy and off balance today. Family member states that she fell once and nearly fell again while trying to get to the bathroom. Patient reports she has been feeling unwell and has had some upper abdominal pain as well. States that she quit smoking a week and half ago. additional complaints of diarrhea but no vomiting. Additional complaints of urinary frequency but no dysuria or hematuria. Denies chest pain, abdominal pain, diarrhea <HOUSTON Ortega Last Filed: 01/18/24 23:29> Related Data Home Medications: Home Medications Medication Instructions Recorded Confirmed metformin 500 mg tablet,extended 500 mg PO BID 12/20/22 01/18/24 release 24 hr sertraline 100 mg tablet 100 mg PO DAILY 12/20/22 01/18/24 clopidogrel 75 mg tablet 75 mg PO DAILY 12/26/22 01/18/24 amlodipine 2.5 mg tablet 2.5 mg PO DAILY 09/09/23 01/18/24 aspirin 81 mg tablet 81 mg PO DAILY 11/11/23 01/18/24 atorvastatin 40 mg tablet 40 mg PO DAILY 01/18/24 01/18/24 dicyclomine 10 mg capsule 10 mg PO TID 01/18/24 01/18/24 furosemide 40 mg tablet 40 mg PO DAILY 01/18/24 01/18/24 lansoprazole 15 mg capsule,delayed 15 mg PO DAILY 01/18/24 01/18/24 release levothyroxine 112 mcg tablet 112 mcg PO DAILY 01/18/24 01/18/24 nitroglycerin 0.4 mg sublingual 4 mg sublingual PRN PRN Chest Pain 01/18/24 01/18/24 tablet <Andrea Hart PA-C - Last Filed: 01/18/24 23:29> Allergies/Adverse Reactions: Allergies Allergy/AdvReac Type Severity Reaction Status Date / Time naproxen AdvReac Itching Verified 01/18/24 22:24 Sulfa (Sulfonamide AdvReac Itching Verified 01/18/24 22:24 Antibiotics) <Andrea Hart PA-C - Last Filed: 01/18/24 23:29> Review of Systems Review of Systems: All systems as dictated in HPI <Andrea Hart PA-C - Last Filed: 01/18/24 23:29> PMF Past Medical History Medical History: Medical History Abdominal bloating Abdominal pain Allergies Bilateral lower abdominal cramping Bloating symptom CAD (coronary artery disease) Diabetes Diarrhea Elevated LFTs Encounter for screening colonoscopy History of Clostridium difficile infection HTN (hypertension) Hx of blood clots Hypothyroidism Loose stools Postprandial abdominal bloating Tobacco use <Andrea Hart PA-C - Last Filed: 01/18/24 23:29> Surgical History Surgical History: Surgical History History of cardiac cath History of coronary artery stent placement x1 Hx of cholecystectomy <Andrea Hart PA-C - Last Filed: 01/18/24 23:29> Family History Family History: Family History Father Diabetes mellitus Cancer Mother Diabetes mellitus <Andrea Hart PA-C - Last Filed: 01/18/24 23:29> Social History Social History: Social History Years smoked: 53 Smoking status: Former smoker Alcohol intake: never Substance use: never Substance use type: does not use Do You Feel Safe in your Home?: Yes Lack of Transportation: No Lack of Food: Never True Current Housing: I Have Housing Concerned About Future Housing: No Difficulty Paying Gas/Electric Bills: No Difficulty Paying for Meds: No Currently Unemployed: No Education: High School Diploma/GED Difficulty w/ Childcare or Family Care: No Living arrangements: with family Spiritual care concerns: No <Andrea Hart PA-C - Last Filed: 01/18/24 23:29> Exam Narrative: GENERAL: Well-appearing, well-nourished, and in no acute distress. HEAD: Normocephalic, atraumatic. EYES: PERRLA and EOMI. ENT: Nares clear, no rhinorrhea or epistaxis. Mucous membranes moist. Oropharynx without tonsillar hypertrophy exudate or other lesions. NECK: Supple. No adenopathy or masses. CHEST: Hypoxic on room air. nursing staff placed on 6 L nasal cannula and she is saturating 92%. Still has some accessory muscle use but able speak in nearly full sentences mild wheezes and rales heard bilaterally. HEART: Regular rate and rhythm. No murmur heard. Normal peripheral pulses. ABDOMEN: Mild epigastric tenderness. Soft, otherwise nontender, nondistended, normal active bowel sounds. MSK: Normal range of motion. No edema. SKIN: Warm, dry, no rash. NEURO: Alert and oriented x4. No focal deficits. PSYCH: Normal mood and affect. <Andrea Hart PA-C - Last Filed: 01/18/24 23:29> Course Vital Signs Vital signs: Vital Signs Temperature 97.6 F 01/18/24 16:24 Pulse Rate 110 H 01/18/24 16:24 Respiratory Rate 23 H 01/18/24 16:24 Blood Pressure 129/69 01/18/24 16:24 Pulse Oximetry 92 01/18/24 16:24 Temperature 99.0 F 01/18/24 22:00 Pulse Rate 90 01/18/24 23:07 Respiratory Rate 14 01/18/24 23:07 Blood Pressure 106/60 01/18/24 23:07 Pulse Oximetry 98 01/18/24 23:07 Oxygen Delivery BiPAP 01/18/24 19:55 Oxygen Flow Rate 8 01/18/24 17:05 <Andrea Hart PA-C - Last Filed: 01/18/24 23:29> Vital Signs Temperature 97.6 F 01/18/24 16:24 Pulse Rate 110 H 01/18/24 16:24 Respiratory Rate 23 H 01/18/24 16:24 Blood Pressure 129/69 01/18/24 16:24 Pulse Oximetry 92 01/18/24 16:24 Temperature 99.0 F 01/18/24 22:00 Pulse Rate 90 01/18/24 23:07 Respiratory Rate 14 01/18/24 23:07 Blood Pressure 106/60 01/18/24 23:07 Pulse Oximetry 98 01/18/24 23:07 Oxygen Delivery BiPAP 01/18/24 19:55 Oxygen Flow Rate 8 01/18/24 17:05 <W[address]ner Lane MD - Last Filed: 01/18/24 21:56> Procedures Central Line Placement Right Femoral: Central Line Date: 01/18/24 <Werner Lane MD - Last Filed: 01/18/24 21:56> Central Line Time: 21:52 <Werner Lane MD - Last Filed: 01/18/24 21:56> Discussed w/ the patient/family/POA,the placement of a central venous catheter, including its clinical necessity/indication & associated potential risks, benifits and alternatives.: Yes <Werner Lane MD - Last Filed: 01/18/24 21:56> The patient/family/POA understand(s) and acknowledge(s) the need to proceed with central venous catheter insertion as an important element of the patient's clinical management.: Yes <Werner Lane MD - Last Filed: 01/18/24 21:56> Time Out Performed: Yes <Werner Lane MD - Last Filed: 01/18/24 21:56> Patient Placed on Monitor/Pulse Ox: Yes <Werner Lane MD - Last Filed: 01/18/24 21:56> Max. Sterile Barrier Technique: Caps, large sterile sheet and hand hygiene <Werner Lane MD - Last Filed: 01/18/24 21:56> Central Line Prep: 2% chlorhexidine scrub and sterile drapes applied <Werner Lane MD - Last Filed: 01/18/24 21:56> Technique: seldinger <Werner Lane MD - Last Filed: 01/18/24 21:56> Local Anesthetic: lidocaine 1% <Werner Lane MD - Last Filed: 01/18/24 21:56> Amount of anesthesia used (mL): [address] <Werner [address] MD - Last Filed: 01/18/24 21:56> Ultrasound Used for Placement: Yes <Werner Lane MD - Last Filed: 01/18/24 21:56> Central Line Lumen Inserted: triple <Werner Lane MD - Last Filed: 01/18/24 21:56> Post Procedure: sutured in place, good blood return, all ports aspirated, flushed, capped and sterile dressing applied <Werner Lane MD - Last Filed: 01/18/24 21:56> Patient Tolerated Procedure: well and no complications <Werner Lane MD - Last Filed: 01/18/24 21:56> MDM - SOB/Dyspnea MDM Narrative Medical decision making narrative: This is a 68-year-old female who presents to the ED for chief complaint of shortness of breath and cough. On arrival she is noted to be hypoxic on room air and was placed on 6 L nasal cannula. Her pulse rate is 110 and tachypneic in the 20s. Blood pressures are stable. Exam remarkable for the above with adventitious breath sounds on heard on exam. ABG shows a compensated metabolic acidosis. CBC shows elevated white count of 14.2. Sepsis pulse fluids were started. CMP remarkable for low bicarb with mild elevation in anion gap with an elevated BUN of 48 and creatinine of 1.50. Glucose elevated to 69 but beta hydroxybutyrate is normal. Do not suspect DKA. Lactic acid is 3.0. Viral swabs are negative initial chest x-ray showing left lower lobe pneumonia. Rocephin and Zithromax started for pneumonia. Patient did have abdominal tenderness on exam so CT chest abdomen and pelvis was ordered. CT imaging: IMPRESSION: Nonocclusive acute subsegmental pulmonary embolus in the left lower lobe. Very small clot burden. No evidence of right heart strain. Left lower lobe pneumonia. Mild hepatomegaly. Possible cystitis. Otherwise, no acute abdominopelvic process detected. Presentation is consistent with sepsis with pneumonia as the source. She was started on sepsis fluids and antibiotics here in the ED. initially pressures started to improve, however she became persistently hypotensive despite sepsis 30 per kilos bolus along with extra L of fluids. She also started to require more more oxygen and developed pursed lip breathing. Started on BiPAP which did help with the work of breathing. Right femoral central line was placed and Levophed drip was started. Spoke with the medicaid billing clerk Dr. Nelson, who does recommend getting the patient started on heparin drip for the PE. He agrees with continuing Rocephin and azithromycin for community-acquired pneumonia. Spoke with ELMIRA Barboza (Hospitalist) who recommends ICU admission. Patient is understanding and agreeable with plan for admission at this time. <Andrea Hart PA-C - Last Filed: 01/18/24 23:29> Lab Data Result diagrams: 01/18/24 17:01 01/18/24 17:01 <Andrea Hart PA-C - Last Filed: 01/18/24 23:29> Labs: Lab Results 01/18/24 01/18/24 01/18/24 Range/Units 17:00 17:01 17:15 WBC 14.2 H (4.5-10.0) K/mm3 RBC 3.29 L (4.2-5.4) M/mm3 Hgb 10.5 L D (12.0-15.0) g/dL Hct 31.0 L (37.0-47.0) % MCV 94.2 (80-100) fl MCH 31.9 (26-34) pg MCHC 33.9 (32-36) g/dl RDW 13.8 (11.5-14.5) % Plt Count 163 (150-375) k/mm3 MPV 11.5 H (7.4-10.4) fl Immature Gran % (Auto) 0.7 H (0-0.5) % Neut % (Auto) 90.2 H (45.5-73.1) % Lymph % (Auto) 6.6 L (18.3-44.2) % [place] % (Auto) 2.1 L (2.6-8.5) % Eos % (Auto) 0.1 (0-4.4) % Baso % (Auto) 0.3 (0.2-1.2) % Lymph # (Auto) 0.93 (0.9-3.2) K/mm3 [place] # (Auto) 0.3 (0.1-0.6) K/mm3 Eos # (Auto) 0.0 (0-0.3) K/mm3 Baso # (Auto) 0.0 (0.0-0.1) K/mm3 Abs Immat Gran (auto) 0.10 H (0.00-0.031) K/mm3 Absolute Neuts (auto) 12.8 H (1.3-6.7) K/mm3 Absolute Nucleated RBC 0.030 H (0.0-0.012) K/mm3 Nucleated RBC % 0.2 (0.0-0.2) % PT 17.0 H (11.1-14.7) Seconds INR 1.4 APTT 47.1 H (22.3-36.8) Seconds Sodium 134 L (137-145) mmol/L Potassium 3.7 (3.4-5.0) mmol/L Chloride 97 L (98-107) mmol/L Carbon Dioxide 20 L (22-30) mmol/L Anion Gap 17 H (4-12) mmol/L BUN 48 H D (7-17) mg/dL Creatinine 1.50 H (0.7-1.0) mg/dL Estim Creat Clear Calc 28 ml/min Estimated GFR 34 L (59 - ) Glucose 269 H (65-110) mg/dL Lactic Acid 3.0 H (0.7-2.0) mmol/L Calcium 9.1 (8.4-10.2) mg/dL Total Bilirubin 2.3 H (0.2-1.3) mg/dL AST 34 (14-36) U/L ALT 22 (6-35) U/L Alkaline Phosphatase 95 (38-126) U/L Troponin I < 0.012 (0.000-0.034) ng/mL C-Reactive Protein > 45.0 H (<1.0) mg/dL Total Protein 8.0 (6.3-8.2) g/dL Albumin 4.1 (3.5-5.1) g/dL Lipase 23 (23-300) U/L Beta-Hydroxybutyrate/Acetoacetate 0.18 (0.02-0.27) mmol/L Procalcitonin 24.2 ng/mL Urine Color (Yellow) Urine Appearance (Clear) Urine pH (5.0-9.0) Ur Specific [place] (1.001-1.035) Urine Protein (Negative) mg/dL Urine Glucose (UA) (Negative) mg/dL Urine Ketones (Negative) mg/dL Ur Blood (Man) (Negative) Urine Nitrate (Negative) Urine Bilirubin (Negative) Urine Urobilinogen (<2.0) mg/dL Leukocyte Esterase Rfl (Negative) JULIOCESAR/UL Urine RBC (0-2) /hpf Urine WBC (0-3) /hpf Ur Squamous Epith Cells (Few) /hpf Urine Bacteria /hpf Urine Casts Influenza A (RT-PCR) Negative (Negative) Influenza B (RT-PCR) Negative (Negative) RSV (RT-PCR) Negative (Negative) SARS-CoV-2 RNA (RT-PCR) Negative (Negative) 01/18/24 01/18/24 Range/Units 20:17 20:48 WBC (4.5-10.0) K/mm3 RBC (4.2-5.4) M/mm3 Hgb (12.0-15.0) g/dL Hct (37.0-47.0) % MCV (80-100) fl MCH (26-34) pg MCHC (32-36) g/dl RDW (11.5-14.5) % Plt Count (150-375) k/mm3 MPV (7.4-10.4) fl Immature Gran % (Auto) (0-0.5) % Neut % (Auto) (45.5-73.1) % Lymph % (Auto) (18.3-44.2) % [place] % (Auto) (2.6-8.5) % Eos % (Auto) (0-4.4) % Baso % (Auto) (0.2-1.2) % Lymph # (Auto) (0.9-3.2) K/mm3 [place] # (Auto) (0.1-0.6) K/mm3 Eos # (Auto) (0-0.3) K/mm3 Baso # (Auto) (0.0-0.1) K/mm3 Abs Immat Gran (auto) (0.00-0.031) K/mm3 Absolute Neuts (auto) (1.3-6.7) K/mm3 Absolute Nucleated RBC (0.0-0.012) K/mm3 Nucleated RBC % (0.0-0.2) % PT (11.1-14.7) Seconds INR APTT (22.3-36.8) Seconds Sodium (137-145) mmol/L Potassium (3.4-5.0) mmol/L Chloride (98-107) mmol/L Carbon Dioxide (22-30) mmol/L Anion Gap (4-12) mmol/L BUN (7-17) mg/dL Creatinine (0.7-1.0) mg/dL Estim Creat Clear Calc ml/min Estimated GFR (59 - ) Glucose (65-110) mg/dL Lactic Acid 2.1 H (0.7-2.0) mmol/L Calcium (8.4-10.2) mg/dL Total Bilirubin (0.2-1.3) mg/dL AST (14-36) U/L ALT (6-35) U/L Alkaline Phosphatase (38-126) U/L Troponin I (0.000-0.034) ng/mL C-Reactive Protein (<1.0) mg/dL Total Protein (6.3-8.2) g/dL Albumin (3.5-5.1) g/dL Lipase (23-300) U/L Beta-Hydroxybutyrate/Acetoacetate (0.02-0.27) mmol/L Procalcitonin ng/mL Urine Color Yellow (Yellow) Urine Appearance Cloudy H (Clear) Urine pH 5.5 (5.0-9.0) Ur Specific [place] 1.028 (1.001-1.035) Urine Protein 1+ H (Negative) mg/dL Urine Glucose (UA) Trace H (Negative) mg/dL Urine Ketones Negative (Negative) mg/dL Ur Blood (Man) 2+ H (Negative) Urine Nitrate Negative (Negative) Urine Bilirubin Negative (Negative) Urine Urobilinogen 1.0 (<2.0) mg/dL Leukocyte Esterase Rfl Negative (Negative) JULIOCESAR/UL Urine RBC 0-2 (0-2) /hpf Urine WBC 0-5 (0-3) /hpf Ur Squamous Epith Cells Occasional (Few) /hpf Urine Bacteria None seen /hpf Urine Casts 0-2 Influenza A (RT-PCR) (Negative) Influenza B (RT-PCR) (Negative) RSV (RT-PCR) (Negative) SARS-CoV-2 RNA (RT-PCR) (Negative) <Andrea Hart PA-C - Last Filed: 01/18/24 23:29> Lab Results 01/18/24 01/18/24 01/18/24 Range/Units 17:00 17:01 17:15 WBC 14.2 H (4.5-10.0) K/mm3 RBC 3.29 L (4.2-5.4) M/mm3 Hgb 10.5 L D (12.0-15.0) g/dL Hct 31.0 L (37.0-47.0) % MCV 94.2 (80-100) fl MCH 31.9 (26-34) pg MCHC 33.9 (32-36) g/dl RDW 13.8 (11.5-14.5) % Plt Count 163 (150-375) k/mm3 MPV 11.5 H (7.4-10.4) fl Immature Gran % (Auto) 0.7 H (0-0.5) % Neut % (Auto) 90.2 H (45.5-73.1) % Lymph % (Auto) 6.6 L (18.3-44.2) % [place] % (Auto) 2.1 L (2.6-8.5) % Eos % (Auto) 0.1 (0-4.4) % Baso % (Auto) 0.3 (0.2-1.2) % Lymph # (Auto) 0.93 (0.9-3.2) K/mm3 [place] # (Auto) 0.3 (0.1-0.6) K/mm3 Eos # (Auto) 0.0 (0-0.3) K/mm3 Baso # (Auto) 0.0 (0.0-0.1) K/mm3 Abs Immat Gran (auto) 0.10 H (0.00-0.031) K/mm3 Absolute Neuts (auto) 12.8 H (1.3-6.7) K/mm3 Absolute Nucleated RBC 0.030 H (0.0-0.012) K/mm3 Nucleated RBC % 0.2 (0.0-0.2) % PT 17.0 H (11.1-14.7) Seconds INR 1.4 APTT 47.1 H (22.3-36.8) Seconds Sodium 134 L (137-145) mmol/L Potassium 3.7 (3.4-5.0) mmol/L Chloride 97 L (98-107) mmol/L Carbon Dioxide 20 L (22-30) mmol/L Anion Gap 17 H (4-12) mmol/L BUN 48 H D (7-17) mg/dL Creatinine 1.50 H (0.7-1.0) mg/dL Estim Creat Clear Calc 28 ml/min Estimated GFR 34 L (59 - ) Glucose 269 H (65-110) mg/dL Lactic Acid 3.0 H (0.7-2.0) mmol/L Calcium 9.1 (8.4-10.2) mg/dL Total Bilirubin 2.3 H (0.2-1.3) mg/dL AST 34 (14-36) U/L ALT 22 (6-35) U/L Alkaline Phosphatase 95 (38-126) U/L Troponin I < 0.012 (0.000-0.034) ng/mL C-Reactive Protein > 45.0 H (<1.0) mg/dL Total Protein 8.0 (6.3-8.2) g/dL Albumin 4.1 (3.5-5.1) g/dL Lipase 23 (23-300) U/L Beta-Hydroxybutyrate/Acetoacetate 0.18 (0.02-0.27) mmol/L Procalcitonin 24.2 ng/mL Urine Color (Yellow) Urine Appearance (Clear) Urine pH (5.0-9.0) Ur Specific [place] (1.001-1.035) Urine Protein (Negative) mg/dL Urine Glucose (UA) (Negative) mg/dL Urine Ketones (Negative) mg/dL Ur Blood (Man) (Negative) Urine Nitrate (Negative) Urine Bilirubin (Negative) Urine Urobilinogen (<2.0) mg/dL Leukocyte Esterase Rfl (Negative) JULIOCESAR/UL Urine RBC (0-2) /hpf Urine WBC (0-3) /hpf Ur Squamous Epith Cells (Few) /hpf Urine Bacteria /hpf Urine Casts Influenza A (RT-PCR) Negative (Negative) Influenza B (RT-PCR) Negative (Negative) RSV (RT-PCR) Negative (Negative) SARS-CoV-2 RNA (RT-PCR) Negative (Negative) 01/18/24 01/18/24 Range/Units 20:17 20:48 WBC (4.5-10.0) K/mm3 RBC (4.2-5.4) M/mm3 Hgb (12.0-15.0) g/dL Hct (37.0-47.0) % MCV (80-100) fl MCH (26-34) pg MCHC (32-36) g/dl RDW (11.5-14.5) % Plt Count (150-375) k/mm3 MPV (7.4-10.4) fl Immature Gran % (Auto) (0-0.5) % Neut % (Auto) (45.5-73.1) % Lymph % (Auto) (18.3-44.2) % [place] % (Auto) (2.6-8.5) % Eos % (Auto) (0-4.4) % Baso % (Auto) (0.2-1.2) % Lymph # (Auto) (0.9-3.2) K/mm3 [place] # (Auto) (0.1-0.6) K/mm3 Eos # (Auto) (0-0.3) K/mm3 Baso # (Auto) (0.0-0.1) K/mm3 Abs Immat Gran (auto) (0.00-0.031) K/mm3 Absolute Neuts (auto) (1.3-6.7) K/mm3 Absolute Nucleated RBC (0.0-0.012) K/mm3 Nucleated RBC % (0.0-0.2) % PT (11.1-14.7) Seconds INR APTT (22.3-36.8) Seconds Sodium (137-145) mmol/L Potassium (3.4-5.0) mmol/L Chloride (98-107) mmol/L Carbon Dioxide (22-30) mmol/L Anion Gap (4-12) mmol/L BUN (7-17) mg/dL Creatinine (0.7-1.0) mg/dL Estim Creat Clear Calc ml/min Estimated GFR (59 - ) Glucose (65-110) mg/dL Lactic Acid 2.1 H (0.7-2.0) mmol/L Calcium (8.4-10.2) mg/dL Total Bilirubin (0.2-1.3) mg/dL AST (14-36) U/L ALT (6-35) U/L Alkaline Phosphatase (38-126) U/L Troponin I (0.000-0.034) ng/mL C-Reactive Protein (<1.0) mg/dL Total Protein (6.3-8.2) g/dL Albumin (3.5-5.1) g/dL Lipase (23-300) U/L Beta-Hydroxybutyrate/Acetoacetate (0.02-0.27) mmol/L Procalcitonin ng/mL Urine Color Yellow (Yellow) Urine Appearance Cloudy H (Clear) Urine pH 5.5 (5.0-9.0) Ur Specific [place] 1.028 (1.001-1.035) Urine Protein 1+ H (Negative) mg/dL Urine Glucose (UA) Trace H (Negative) mg/dL Urine Ketones Negative (Negative) mg/dL Ur Blood (Man) 2+ H (Negative) Urine Nitrate Negative (Negative) Urine Bilirubin Negative (Negative) Urine Urobilinogen 1.0 (<2.0) mg/dL Leukocyte Esterase Rfl Negative (Negative) JULIOCESAR/UL Urine RBC 0-2 (0-2) /hpf Urine WBC 0-5 (0-3) /hpf Ur Squamous Epith Cells Occasional (Few) /hpf Urine Bacteria None seen /hpf Urine Casts 0-2 Influenza A (RT-PCR) (Negative) Influenza B (RT-PCR) (Negative) RSV (RT-PCR) (Negative) SARS-CoV-2 RNA (RT-PCR) (Negative) <Werner Lane MD - Last Filed: 01/18/24 21:56> ABG Data ABG results: 01/18/24 16:43 Puncture Site Right brachial ABG pH 7.413 ABG pCO2 27.0 L ABG pO2 60.7 L ABG PO2/FiO2 Ratio 1.26 ABG HCO3 16.8 L ABG O2 Saturation 92.1 L ABG O2 Content 15.5 L ABG Base Excess -6.3 A-a Gradient 251.0 Oxyhemoglobin 89.8 L Total Hemoglobin 12.3 O2 Delivery Device Nasal cannula O2 Liters/Min 7.0 FiO2 48 <Andrea Hart PA-C - Last Filed: 01/18/24 23:29> 01/18/24 16:43 Puncture Site Right brachial ABG pH 7.413 ABG pCO2 27.0 L ABG pO2 60.7 L ABG PO2/FiO2 Ratio 1.26 ABG HCO3 16.8 L ABG O2 Saturation 92.1 L ABG O2 Content 15.5 L ABG Base Excess -6.3 A-a Gradient 251.0 Oxyhemoglobin 89.8 L Total Hemoglobin 12.3 O2 Delivery Device Nasal cannula O2 Liters/Min 7.0 FiO2 48 <Werner Lane MD - Last Filed: 01/18/24 21:56> Critical Care Time Critical Care Time Critical Care Time: Yes <Werner Lane MD - Last Filed: 01/18/24 21:56> Total Critical Care Time: 35 <Andrea Hart PA-C - Last Filed: 01/18/24 23:29> 30 <Werner Lane MD - Last Filed: 01/18/24 21:56> Discharge Plan Discharge Clinical Impression: Community acquired pneumonia, Sepsis, Single subsegmental pulmonary embolism without acute cor pulmonale <Andrea Hart PA-C - Last Filed: 01/18/24 23:29> Patient Disposition: Still a Patient <Andrea Hart PA-C - Last Filed: 01/18/24 23:29> Condition: Serious <Andrea Hart PA-C - Last Filed: 01/18/24 23:29>
--- NOTE | 2024-01-18 16:33 | ECG_ITS ---
Test Date: 2024-01-18 16:24:03 Measurements Intervals [place] Rate: 104 P: 57 WA: 152 QRS: -22 QRSD: 106 T: 79 QT: 335 QTc: 441 Interpretive Statements SINUS TACHYCARDIA BORDERLINE ST-T WAVE ABNORMALITY- ANTEROLAT/HIGH LAT LEADS BASELINE ARTIFACT- I, III, AVL BORDERLINE ECG No previous ECG available for comparison Electronically Signed On 01-18-2024 18:59:00 ELECTRICAL MANUFACTURING TECHNICIAN by Bert Pena D.O.
[2024-01-18] MEDS: LACTATED RINGERS 2,200 ML/1,000 ML BAG 999 ML IV CONT ×3 (16:41→17:46)
[2024-01-18] MEDS: ONDANSETRON INJ 4 MG/2 ML VIAL IV PUSH (16:41)
[2024-01-18] MEDS: IPRATROPIUM 0.5 MG/ALBUTEROL SULFATE 2.5 MG AMPUL.NEB 3 ML INHALATION (16:44)
[2024-01-18 16:52] LABS: Base Excess ABG -6.3 mEq/l (+/-2.0); Fractional Inspired Oxygen 48 %; HCO3 ABG 16.8 mEq/l (22.0-26.0); Oxygen Content ABG 15.5 %vol (16.0-22.0); Oxygen Saturation ABG 92.1 % (95.0-100.0); Oxyhemoglobin 89.8 % THb (90.0-100.0); PO2 ABG 60.7 mmHg (80.0-100.0); PO2 FiO2 Ratio Arterial Blood 1.26 %; Total Hemoglobin 12.3 g/dL (12.0-18.0); pH ABG 7.413 (7.350-7.450)
[2024-01-18 16:54] LABS: Device NASAL CANNULA; Modified Allen's Test Pass; Site Drawn RIGHT BRACHIAL
[2024-01-18 17:13] LABS: Basophils Percent Auto 0.3 % (0.2-1.2); Eosinophils Percent Auto 0.1 % (0-4.4); Hemoglobin 10.5 g/dL (12.0-15.0); Immature Granulocyte Percent A 0.7 % (0-0.5); Lymphocytes Absolute Auto 0.93 K/mm3 (0.9-3.2); Lymphocytes Percent Auto 6.6 % (18.3-44.2); Mean Corpuscular HGB Conc 33.9 g/dl (32-36); Mean Corpuscular Hemoglobin 31.9 pg (26-34); Mean Corpuscular Volume 94.2 fl (80-100); Mean Platelet Volume 11.5 fl (7.4-10.4); Monocytes Absolute Auto 0.3 K/mm3 (0.1-0.6); Monocytes Percent Auto 2.1 % (2.6-8.5); Neutrophils Absolute Auto 12.8 K/mm3 (1.3-6.7); Neutrophils Percent Auto 90.2 % (45.5-73.1); Nucleated Red Blood Cells Perc 0.2 % (0.0-0.2); Platelet Count Result 163 k/mm3 (150-375); Red Blood Count 3.29 M/mm3 (4.2-5.4); Red Cell Distribution Width 13.8 % (11.5-14.5); White Blood Count 14.2 K/mm3 (4.5-10.0)
[2024-01-18 17:33] LABS: INR 1.4
[2024-01-18 17:34] LABS: Alanine Aminotransferase 22 U/L (6-35); Albumin Level 4.1 g/dL (3.5-5.1); Alkaline Phosphatase 95 U/L (38-126); Anion Gap 17 mmol/L (4-12); Aspartate Amino Transferase 34 U/L (14-36); Bilirubin,Total 2.3 mg/dL (0.2-1.3); Blood Urea Nitrogen 48 mg/dL (7-17); Calcium 9.1 mg/dL (8.4-10.2); Carbon Dioxide 20 mmol/L (22-30); Chloride 97 mmol/L (98-107); Estimated CRCL calculation 28 ml/min; Estimated Glomerular Filt Rate 34; Glucose 269 mg/dL (65-110); Lipase 23 U/L (23-300); Partial Thromboplastin Time 47.1 Seconds (22.3-36.8); Potassium 3.7 mmol/L (3.4-5.0); Sodium 134 mmol/L (137-145)
[2024-01-18 17:47] LABS: Troponin I < 0.012 ng/mL (0.000-0.034)
[2024-01-18 17:49] LABS: CRP > 45.0 mg/dL (<1.0)
[2024-01-18 17:56] LABS: Influenza A QL RT-PCR Negative (Negative); Influenza B QL RT-PCR Negative (Negative); RSV RNA, RT-PCR Negative (Negative); SARS-CoV-2 RNA PCR Negative (Negative)
[2024-01-18 18:24] LABS: Beta-Hydroxybutyrate/Acetoacetate 0.18 mmol/L (0.02-0.27)
[2024-01-18] MEDS: AZITHROMYCIN 500 MG/NS 250 ML 500 MG/250 ML BAG 250 MG IVPB (18:30)
[2024-01-18 20:10] LABS: Reflex Lactic Acid Yes or No Add Lactic
[2024-01-18] MEDS: SODIUM CHLORIDE 0.9% IV 1,000 ML 999 ML IV CONT (20:14)
--- NOTE | 2024-01-18 20:24 | PC.NURSE ---
patient needed to use the bedpan and while moving to use the bedpan the patient was hypoxic into the low 80%, patient was coached with NC at 7L to inhale through her nose and exhale out her mouth. patient required 15L HFNC to rebound oxygenation and the patient was able to maintain an spo2 of upper 80s. Respiratory was called, bipap was put inplace. patient required an increase to 70% fio2 to maintain an spo2 of >92%. Patient also hypotensive throughout, Central line discussed, and need for possible levo requirements. patient and family along with Andrea GREWAL went over consent form that was signed and placed with patient chart. simental catheter was placed to monitor accurate i/os
[2024-01-18 20:25] LABS: Add Urine Microscopic? YES; Appearance Urine Cloudy (Clear); Bacteria Urine None Seen /hpf; Bilirubin Urine Negative (Negative); Blood Urine 2+ (Negative); Color Urine Yellow (Yellow); Glucose Urine UA Trace mg/dL (Negative); Ketones Urine Negative (Negative); Leukocyte Esterase Ur Negative LEU/UL (Negative); Nitrate Urine Negative (Negative); Non Pathogenic Casts 0-2; Protein Urine 1+ mg/dL (Negative); RBC Urine 0-2 /hpf (0-2); Specific Grav Ur 1.028 (1.001-1.035); Squamous Epithelial Cell Urine Occasional /hpf (Few); WBC Urine 0-5 /hpf (0-3); pH Urine 5.5 (5.0-9.0)
[2024-01-18 21:05] LABS: Lactic Acid 2.1 mmol/L (0.7-2.0)
[2024-01-18 21:10] LABS: Procalcitonin 24.2 ng/mL
--- NOTE | 2024-01-18 21:12 | PC.NURSE ---
This RN assumed care of pt at 2109. due to pts declining blood pressures decision was made to place central line made at 2111, consent from pt obtained. Family made aware of plan of care.
[2024-01-18] MEDS: NOREPINEPHRINE 8 MG/D5W 250 ML 8 MG/250 ML BAG 9.38 MG IV CONT (21:45)
--- NOTE | 2024-01-18 23:16 | PC.NURSE ---
Report received from ER nurse Dejah at [id number].
--- NOTE | 2024-01-18 23:21 | P.HP_ITS ---
H&P: HPI History of Present Illness Date/Time: 01/18/24 23:21 Chief Complaint: Cough, shortness of breath Narrative: 68-year-old female with past medical history of essential hypertension, hyperlipidemia, CHF, angina, diabetes and hypothyroidism who presented to the ER with fever, cough and shortness of breath for 3 days. The patient and her [id number] at bedside help provide history. The patient went to her primary care physician office on for her usual follow-up in felt well. On Friday she woke up and did not feel well. She was fatigued and had developed some shortness of breath. She slept for the majority of the day. She did check her temperature at the time was high as 102.3. She did have cough but the cough was nonproductive. She reports that the only ill contacts she had were her grandchildren who have the usual upper respiratory symptoms associated with childhood. She did have some decreased appetite. She denies any acute abdominal symptoms but does have intermittent/frequent diarrhea due to diverticulosis. Her [id number]-rtx also reports the patient had been having some left lower rib pain that would catch her pinched the patient in seemed severe at times. It was only last for a few seconds to a minute and then resolved. She did have 1 episode of vomiting on the day she presents in did to the hospital. She came to the hospital after her daughter called her primary care provider's office and they recommended that she come to the ER. She denies any significant abdominal pain. She has not had any dysuria or urinary frequency. On arrival to the ER patient was noted to be hypoxic and was placed on 8 L high-flow oxygen. Patient received 30 mL/kilos fluid bolus and still remained hypotensive. She ended up receiving a right femoral central line. She was started on empiric antibiotic therapy with Rocephin and azithromycin and she was in admitted to the ICU. Due to her increasing oxygen requirements and work breathing she was placed on BiPAP. At the time my evaluation patient on BiPAP of 15/5 with a rate of 4 and 60% FiO2. The patient was pulling tidal volumes of 700-800. She reports that she was so weak that she was having difficulty sit ting up or standing. She reported feeling dizzy. She felt so off that she felt like she was walking to the left and falling to the left. She did not mention the symptoms to the ER provider. The patient reports that she does not have a known history of COPD but she does have significant smoking history of 0.5 packs of cigarettes per day since she was a teenager. She states she quit smoking 2 weeks ago. She does have a history of diabetes. She reports that since her sister is and she does not have to check her sister sugars much she has fallen off on being reliable in checking her home glucoses. She also has been less consistent on taking her own medications. When she arrived to the hospital rib glucose was 270. She denies symptoms of neuropathy. 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 She denies known history of kidney disease. She is supposed be on lansoprazole due to recent EGD demonstrating gastric ulcers. She reports that she has been having intermittent black stools. Her hemoglobin on presentation to the hospital was down 4 g compared to August. She had anemia labs performed which were completely normal. She reports a distant history of pulmonary embolism when she was 15 and on control. Review of Systems Review of Systems: 12 systems were reviewed with pertinent positives and negatives per HPI. Except as documented in the HPI, all other systems were reviewed and are negative. [facility] Past Medical History Medical History Allergic rhinitis CAD (coronary artery disease) Diabetes Gastric cardia ulcer Noted on EGD 12/04/2023 History of Clostridium difficile infection (12/2022) HTN (hypertension) Hx of blood clots Pulmonary embolism at age 15 due to control use Hypothyroidism Tobacco use Surgical History Surgical History (Updated 01/18/24 @ 23:35 by Lisa Anderson DO) History of cardiac cath History of colonoscopy (04/02/23) History of coronary artery stent placement x1 History of esophagogastroduodenoscopy (EGD) (12/04/23) Hx of cholecystectomy Family History Family History Father Diabetes mellitus Cancer Mother Diabetes mellitus Social History Social History (Updated 01/19/24 @ 08:19 by Lisa Anderson DO) Social History: The patient lives in her own home. She has been since approximately 2019. She was for 50 years prior to her 's and they raised 6 children. She has approximately 32 grandchildren. 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 She has smoked a half a pack of cigarettes per day on average shins she was in her teens. She denies significant alcohol use history or history of drug use. Code status: Full code (she states that she would not want to be on a ventilator long-term or be completed dependent for care.) Healthcare power of insurance defense attorney: Tiffany Vega (youngest daughter) Smoking packs per day: 0.5 Smoking cigarettes per day: 10.0 Years smoked: 53 Smoking pack-years: 26.50 Smoking status: Former smoker Smoking end date: 01/05/24 Alcohol intake: never Substance use: never Substance use type: does not use Do You Feel Safe in your Home?: Yes Lack of Transportation: No Lack of Food: Never True Current Housing: I Have Housing Concerned About Future Housing: No Difficulty Paying Gas/Electric Bills: No Difficulty Paying for Meds: No Currently Unemployed: No Education: High School Diploma/GED Difficulty w/ Childcare or Family Care: No Living arrangements: with family Spiritual care concerns: No Meds Home Medications and Allergies Home Medications Medication Instructions Recorded Confirmed Type metformin 500 mg tablet,extended 500 mg PO BID 12/20/22 01/18/24 History release 24 hr sertraline 100 mg tablet 100 mg PO DAILY 12/20/22 01/18/24 History clopidogrel 75 mg tablet 75 mg PO DAILY 12/26/22 01/18/24 History amlodipine 2.5 mg tablet 2.5 mg PO DAILY 09/09/23 01/18/24 History aspirin 81 mg tablet 81 mg PO DAILY 11/11/23 01/18/24 History atorvastatin 40 mg tablet 40 mg PO DAILY 01/18/24 01/18/24 History dicyclomine 10 mg capsule 10 mg PO TID 01/18/24 01/18/24 History furosemide 40 mg tablet 40 mg PO DAILY 01/18/24 01/18/24 History lansoprazole 15 mg capsule,delayed 15 mg PO DAILY 01/18/24 01/18/24 History release levothyroxine 112 mcg tablet 112 mcg PO DAILY 01/18/24 01/18/24 History nitroglycerin 0.4 mg sublingual 4 mg sublingual PRN PRN Chest Pain 01/18/24 01/18/24 History tablet Allergies Allergy/AdvReac Type Severity Reaction Status Date / Time naproxen AdvReac Itching Verified 01/18/24 22:24 Sulfa (Sulfonamide AdvReac Itching Verified 01/18/24 22:24 Antibiotics) Vital Signs Vital Signs - 24 hr 01/18/24 16:24 01/18/24 16:26 01/18/24 16:29 Temperature 97.6 F 97.8 F Pulse Rate 110 H 86 Respiratory Rate 23 H 18 Blood Pressure 129/69 121/79 Pulse Oximetry 92 100 86 L Oxygen Delivery Room Air Oxygen Flow Rate 01/18/24 16:50 01/18/24 17:03 01/18/24 17:05 Temperature Pulse Rate 99 95 Respiratory Rate 22 H 20 Blood Pressure Pulse Oximetry 94 Oxygen Delivery High Flow Nasal Cannula Oxygen Flow Rate 8 01/18/24 19:55 01/18/24 16:30 01/18/24 17:00 Temperature Pulse Rate 100 104 H 94 Respiratory Rate 23 H 22 H 21 H Blood Pressure 98/55 L 103/55 L Pulse Oximetry 96 91 94 Oxygen Delivery BiPAP Oxygen Flow Rate 01/18/24 17:31 01/18/24 18:16 01/18/24 19:00 Temperature Pulse Rate 96 97 94 Respiratory Rate 21 H 21 H 20 Blood Pressure 122/60 129/52 L 100/55 L Pulse Oximetry 97 98 94 Oxygen Delivery Oxygen Flow Rate 01/18/24 19:30 01/18/24 19:45 01/18/24 20:00 Temperature Pulse Rate 96 92 100 Respiratory Rate 21 H 21 H 22 H Blood Pressure 93/47 L 70/45 L 91/45 L Pulse Oximetry 90 93 96 Oxygen Delivery Oxygen Flow Rate 01/18/24 20:23 01/18/24 18:30 01/18/24 20:26 Temperature Pulse Rate 96 98 101 H Respiratory Rate 27 H 23 H 16 Blood Pressure 103/52 L 112/80 Pulse Oximetry 96 89 L 96 Oxygen Delivery Oxygen Flow Rate 01/18/24 20:30 01/18/24 20:31 01/18/24 20:36 Temperature Pulse Rate 97 102 H 94 Respiratory Rate 26 H 24 H 25 H Blood Pressure 92/61 L 100/55 L Pulse Oximetry 96 96 95 Oxygen Delivery Oxygen Flow Rate 01/18/24 20:41 01/18/24 20:45 01/18/24 21:00 Temperature Pulse Rate 94 92 91 Respiratory Rate 24 H 20 25 H Blood Pressure 98/48 L Pulse Oximetry 97 98 97 Oxygen Delivery Oxygen Flow Rate 01/18/24 21:11 01/18/24 21:16 01/18/24 21:44 Temperature Pulse Rate 96 95 Respiratory Rate 18 20 Blood Pressure 97/42 L 89/37 L 92/39 L Pulse Oximetry 98 97 Oxygen Delivery Oxygen Flow Rate 01/18/24 21:45 01/18/24 22:00 01/18/24 22:06 Temperature 99.0 F Pulse Rate 94 89 96 Respiratory Rate 14 18 Blood Pressure 92/39 L 96/45 L 89/43 L Pulse Oximetry 96 99 Oxygen Delivery Oxygen Flow Rate 01/18/24 22:07 01/18/24 22:32 01/18/24 22:01 Temperature Pulse Rate 92 87 90 Respiratory Rate 20 Blood Pressure 89/43 L 101/40 L 96/45 L Pulse Oximetry 99 Oxygen Delivery Oxygen Flow Rate 01/18/24 22:11 01/18/24 22:15 01/18/24 22:16 Temperature Pulse Rate 95 87 87 Respiratory Rate 20 18 18 Blood Pressure 97/53 L 101/46 L Pulse Oximetry 98 98 98 Oxygen Delivery Oxygen Flow Rate 01/18/24 22:47 01/18/24 23:07 Temperature Pulse Rate 90 90 Respiratory Rate 15 14 Blood Pressure 101/48 L 106/60 Pulse Oximetry 99 98 Oxygen Delivery Oxygen Flow Rate Exam Narrative: Weight 74 kg BMI 31.9 Const: Other: Obese, mildly ill-appearing, appears stated age, BiPAP in place HENMT: Other: Oral exam limited due to BiPAP being in place, patient is edentulous in upper jaw, has multiple missing teeth in lower jaw, mucous membranes are dry, head is normocephalic atraumatic, fluid present behind the right tympanic membrane Eyes: Other: Pupils are equal and reactive, no scleral icterus, positive conjunctival pallor Neck: Other: Large neck circumference, no JVD irregular thyroid Resp: Other: Crackles in the left base, conversational tachypnea, no accessory muscle use, BiPAP in place Cardio: Other: Sinus tachycardia, 2+ bilateral radial pedal pulses, no murmur, no JVD GI: Other: Soft, nontender, nondistended, positive bowel sounds : Other: Pressley catheter in place with clear dark yellow urine Skin: Other: No jaundice, positive pallor, warm to touch Neuro: Other: Alert orient x4, speech is clear, no facial asymmetry although symmetry exam is limited due to presence of BiPAP, no gross motor deficits noted Extrem: Other: No clubbing, cyanosis or edema, no mottling, 5/5 dry cure worker strength bilateral, 5/5 strength dorsiflexion and plantar flexion bilateral Psych: Other: Appropriate mood and affect, pleasant and cooperative, judgment and insight intact H&P: Results Labs Labs: Laboratory Tests 01/18/24 17:01 01/18/24 17:01 01/18/24 01/18/24 01/18/24 16:43 17:00 17:01 WBC 14.2 H RBC 3.29 L Hgb 10.5 L D Hct 31.0 L MCV 94.2 MCH 31.9 MCHC 33.9 RDW 13.8 Plt Count 163 MPV 11.5 H Immature Gran % (Auto) 0.7 H Neut % (Auto) 90.2 H Lymph % (Auto) 6.6 L [place] % (Auto) 2.1 L Eos % (Auto) 0.1 Baso % (Auto) 0.3 Lymph # (Auto) 0.93 [place] # (Auto) 0.3 Eos # (Auto) 0.0 Baso # (Auto) 0.0 Abs Immat Gran (auto) 0.10 H Absolute Neuts (auto) 12.8 H Absolute Nucleated RBC 0.030 H Nucleated RBC % 0.2 PT 17.0 H INR 1.4 APTT 47.1 H Puncture Site Right brachial ABG pH 7.413 ABG pCO2 27.0 L ABG pO2 60.7 L ABG PO2/FiO2 Ratio 1.26 ABG HCO3 16.8 L ABG O2 Saturation 92.1 L ABG O2 Content 15.5 L ABG Base Excess -6.3 A-a Gradient 251.0 Oxyhemoglobin 89.8 L Total Hemoglobin 12.3 O2 Delivery Device Nasal cannula O2 Liters/Min 7.0 FiO2 48 Sodium 134 L Potassium 3.7 Chloride 97 L Carbon Dioxide 20 L Anion Gap 17 H BUN 48 H D Creatinine 1.50 H Estim Creat Clear Calc 28 Estimated GFR 34 L Glucose 269 H Lactic Acid 3.0 H Calcium 9.1 Total Bilirubin 2.3 H AST 34 ALT 22 Alkaline Phosphatase 95 Troponin I < 0.012 C-Reactive Protein > 45.0 H Total Protein 8.0 Albumin 4.1 Lipase 23 Beta-Hydroxybutyrate/Acetoacetate 0.18 Procalcitonin 24.2 Urine Color Urine Appearance Urine pH Ur Specific [place] Urine Protein Urine Glucose (UA) Urine Ketones Ur Blood (Man) Urine Nitrate Urine Bilirubin Urine Urobilinogen Leukocyte Esterase Rfl Urine RBC Urine WBC Ur Squamous Epith Cells Urine Bacteria Urine Casts Influenza A (RT-PCR) Influenza B (RT-PCR) RSV (RT-PCR) SARS-CoV-2 RNA (RT-PCR) 01/18/24 01/18/24 01/18/24 17:15 20:17 20:48 WBC RBC Hgb Hct MCV MCH MCHC RDW Plt Count MPV Immature Gran % (Auto) Neut % (Auto) Lymph % (Auto) [place] % (Auto) Eos % (Auto) Baso % (Auto) Lymph # (Auto) [place] # (Auto) Eos # (Auto) Baso # (Auto) Abs Immat Gran (auto) Absolute Neuts (auto) Absolute Nucleated RBC Nucleated RBC % PT INR APTT Puncture Site ABG pH ABG pCO2 ABG pO2 ABG PO2/FiO2 Ratio ABG HCO3 ABG O2 Saturation ABG O2 Content ABG Base Excess A-a Gradient Oxyhemoglobin Total Hemoglobin O2 Delivery Device O2 Liters/Min FiO2 Sodium Potassium Chloride Carbon Dioxide Anion Gap BUN Creatinine Estim Creat Clear Calc Estimated GFR Glucose Lactic Acid 2.1 H Calcium Total Bilirubin AST ALT Alkaline Phosphatase Troponin I C-Reactive Protein Total Protein Albumin Lipase Beta-Hydroxybutyrate/Acetoacetate Procalcitonin Urine Color Yellow Urine Appearance Cloudy H Urine pH 5.5 Ur Specific [place] 1.028 Urine Protein 1+ H Urine Glucose (UA) Trace H Urine Ketones Negative Ur Blood (Man) 2+ H Urine Nitrate Negative Urine Bilirubin Negative Urine Urobilinogen 1.0 Leukocyte Esterase Rfl Negative Urine RBC 0-2 Urine WBC 0-5 Ur Squamous Epith Cells Occasional Urine Bacteria None seen Urine Casts 0-2 Influenza A (RT-PCR) Negative Influenza B (RT-PCR) Negative RSV (RT-PCR) Negative SARS-CoV-2 RNA (RT-PCR) Negative Impressions Chest X-Ray 01/18/24 16:46 (personally reviewed and interpreted. Radiologic interpretation below.) IMPRESSION: Segmental left lower lung consolidation concerning for pneumonia, overlying a background of mild interstitial pulmonary edema/senescent change Chest/Abdomen/Pelvis CTA 01/18/24 18:30 IMPRESSION: Nonocclusive acute subsegmental pulmonary embolus in the left lower lobe. Very small clot burden. No evidence of right heart strain. Left lower lobe pneumonia. Mild hepatomegaly. Possible cystitis. Otherwise, no acute abdominopelvic process detected. EKG: Personally reviewed and interpreted with cardiology interpretation below. Measurements Intervals [place] Rate: 104 P: 57 GA: 152 QRS: -22 QRSD: 106 T: 79 QT: 335 QTc: 441 Interpretive Statements SINUS TACHYCARDIA BORDERLINE ST-T WAVE ABNORMALITY- ANTEROLAT/HIGH LAT LEADS BASELINE ARTIFACT- I, III, AVL BORDERLINE ECG Assessment and Plan Assessment and plan (1) Septic shock: Code(s): A41.9 - Sepsis, unspecified organism; R65.21 - Severe sepsis with septic shock Status: Acute (2) Sepsis: Qualifiers: Sepsis type: sepsis due to unspecified organism Sepsis acute organ dysfunction status: with acute organ dysfunction Severe sepsis acute organ dysfunction type: acute respiratory failure Acute respiratory failure type: with hypoxia Severe sepsis shock status: with septic shock Qualified Code(s): A41.9 - Sepsis, unspecified organism; R65.21 - Severe sepsis with septic shock; J96.01 - Acute respiratory failure with hypoxia Code(s): A41.9 - Sepsis, unspecified organism Status: Acute (3) Community acquired pneumonia: Qualifiers: Laterality: left Lung location: lower lobe of lung Qualified Code(s): J18.9 - Pneumonia, unspecified organism Code(s): J18.9 - Pneumonia, unspecified organism Status: Acute (4) Metabolic acidosis with respiratory alkalosis: Code(s): E87.20 - Acidosis, unspecified; E87.3 - Alkalosis Status: Acute (5) Single subsegmental pulmonary embolism without acute cor pulmonale: Code(s): I26.93 - Single subsegmental thrombotic pulmonary embolism without acute cor pulmonale Status: Acute (6) Acute anemia: Code(s): D64.9 - Anemia, unspecified Status: Acute (7) Gastric cardia ulcer: Code(s): K22.10 - Ulcer of esophagus without bleeding Status: Acute (8) Type 2 diabetes mellitus with hyperglycemia, without long-term current use of insulin: Code(s): E11.65 - Type 2 diabetes mellitus with hyperglycemia Status: Acute (9) Tobacco use: Code(s): Z72.0 - Tobacco use Status: Acute Plan The patient has septic shock and acute hypoxic respiratory failure due to left lower lobe community acquired pneumonia. Blood cultures have been obtained and are pending. Will check urine Legionella and pneumococcal antigen. Patient was started on empiric antibiotic therapy with Rocephin and azithromycin. Patient has been placed on BiPAP. BiPAP adjustments were made with dropping inspiratory pressure to 10 continuing expiratory pressure of 5 and increasing backup rate to 14. Patient remains on a fair amount of FiO2. However patient is now pulling more reasonable tidal volumes for patient of her height and weight. Will repeat ABG in a.m.. Will initiate patient on scheduled nebulizer treatments with albuterol and Atrovent. It would not surprise me a patient had some underlying COPD. She would benefit from outpatient pulmonary function testing once acute respiratory illness has resolved. Patient is also obese and would benefit from outpatient polysomnogram. The patient has been congratulated on her tobacco cessation efforts and encouraged to refrain from smoking for again. The patient remained hypotensive and had been placed on Levophed. Will titrate Levophed for goal maps 6065 and systolic pressure greater than 90. Will continue IV fluid hydration and repeat CBC and electrolyte panel in a.m. Radiology states the patient has small pulmonary embolism. However, we need to use some caution in this patient who has known recent diagnosis of gastric ulcer with drop in hemoglobin of 4 g in recent months with reported black stools. This point the risks of heparin infusion may be greater than the risks of small pulmonary embolism. Will order venous Dopplers to evaluate for possible DVT although less likely given lack of symptoms. Will check stools for occult blood. Will repeat CBC and electrolyte panel in a.m.. Will place patient on stress ulcer prophylaxis with Protonix 40 mg IV q.12 hours. Patient has uncontrolled diabetes mellitus with hyperglycemia. Will place patient on consistent carbohydrate diet with moderate dose sliding scale insulin with Accu-Cheks a.c. HS and hypoglycemia protocol. Patient does have hypothyroidism. It Is unclear if the patient has been reliable with her thyroid medication intake. Will check TSH. 80 minute spent in critical care activities. Care plan was discussed with the patient and her daughter lot bedside who voiced understanding. Quality VTE Prophylaxis VTE prophylaxis: pharmacologic ordered (Heparin GGT per protocol) Hospitalist [facility] Advance Care Plan I have confirmed that the patient's Advanced Care Plan is present, code status is documented, or surrogate decision maker is listed in patient medical record.: Yes Medication Reconciliation I have utilized all available resources to obtain, update and review the patients current medications (includes all prescriptions, OTC, herbals, cannabis, and nutritional supplements).: Yes
--- NOTE | 2024-01-18 23:46 | ADMGEN ---
This patient, Frances Lazo, was admitted to Intensive Care Unit-8. Patient/family oriented to hospital policies and general routines including ID bracelet, bed and alarms, visiting hours, pain management, procedures, bathroom and other care routines, personal items, smoking policy, room service/diet, and visiting hours. Information on how to activate the Rapid Response Team has been discussed. Patient/Family are encouraged to report perceived risks to care and to ask questions if they do not understand what they are told or what they should do.
[2024-01-19] VITALS (46 sets, daily range): BP systolic 108–144; BP diastolic 51–99; PULSE 86–106; RESP 18–30; TEMP 36.9–38.2; O2SAT 92–99
--- NOTE | 2024-01-19 | ECHO_ITS ---
Patient Info Name: Frances Lazo Age: 68 years : 1955 Gender: Female Ht: 60 in Wt: 163 lbs BSA: 1.80 m2 HR: 102 bpm BP: 130 / 56 mmHg Heart Rhythm: Sinus Rhythm Technical Quality: Fair Exam Date: 01/19/2024 9:00 AM Exam Location: Echo Lab Patient Status: Inpatient Admit Date: 01/18/2024 Staff Ordering Physician: Lisa Anderson DO Division Sergeant: ROSENDO Attending Provider: Lisa Anderson DO Referring Physician: Justin CALLAWAY; Exam Type: CA echo dop color flow w con Study Info Indications - pul embolism Complete two-dimensional, color flow and Doppler transthoracic echocardiogram is performed with contrast to opacify the left ventricle and to improve the deliniation of the left ventricle endocardial borders. Summary 1. Left ventricular systolic function is normal, estimated at 55-60%. 2. There is mildly increased left ventricular wall thickness. 3. The left ventricular diastolic function is grade I diastolic dysfunction. 4. There is trace mitral valve regurgitation. 5. There is trace tricuspid valve regurgitation. 6. No pulmonary hypertension, estimated pulmonary arterial systolic pressure is 41 mmHg. 7. Right ventricular systolic function is normal. 8. Right ventricular chamber dimension is normal. Left Ventricle Left ventricular chamber dimension is normal. Left ventricular systolic function is normal, estimated at 55-60%. There is mildly increased left ventricular wall thickness. Left ventricular septal wall motion is normal. The left ventricular diastolic function is grade I diastolic dysfunction. Right Ventricle Right ventricular chamber dimension is normal. Right ventricular systolic function is normal. Left Atria Left atrial chamber dimension is normal. Right Atria Right atrial chamber dimension is normal. Atrial Septum Intact interatrial septum visualized by color flow imaging. Aortic Valve The aortic valve is trileaflet. There is no aortic valve sclerosis. There is no aortic valve stenosis. There is no aortic valve regurgitation. Pulmonic Valve The pulmonic valve is normal. There is no pulmonic valve stenosis. There is no pulmonic regurgitation. Mitral Valve The mitral valve has normal leaflets. There is no mitral valve stenosis. There is trace mitral valve regurgitation. Tricuspid Valve The tricuspid valve leaflets are normal. There is no significant tricuspid valve stenosis. There is trace tricuspid valve regurgitation. No pulmonary hypertension, estimated pulmonary arterial systolic pressure is 41 mmHg. Pericardium/Pleural The pericardium appears normal. There is no pericardial effusion. Aorta The aortic root size at the sinus of Valsalva is normal. The prox ascending aorta size is normal. Left Ventricular Outflow Tract Name Value Normal LVOT 2D LVOT Diameter 2.11 cm LVOT Doppler LVOT Peak Gradient 8 mmHg LVOT Mean Gradient 4 mmHg LVOT VTI 26.61 cm LVOT VTI/AV VTI Ratio 0.63 LVOT Stroke Volume 92.75 ml LVOT CO 9.40 l/min LVOT CI 5.22 L/min/m2 Mitral Valve Name Value Normal MV Doppler MV Decel [place] 864.03 cm/s2 MV PHT 0 s MV Area (PHT) 5.09 cm2 4.00-5.00 MV Diastolic Function MV E Peak Velocity 128.67 cm/s MV A Peak Velocity 147.46 cm/s MV E/A 0.87 MV Decel Time 0 s MV Annular TDI MV E/e' (Septal) 15.40 <=8.00 MV E/e' (Lateral) 13.81 <=8.00 MV E/e' (Average) 14.60 Tricuspid Valve Name Value Normal TV Regurgitation Doppler TR Peak Velocity 280.37 cm/s TR Peak Gradient 12 mmHg Estimated PAP/RSVP RA Pressure 10 mmHg <=5 PA Systolic Pressure 41 mmHg <36 RV Systolic Pressure 41 mmHg <36 Aortic Valve Name Value Normal AV Doppler AV Peak Velocity 263.38 cm/s AV Peak Gradient 28 mmHg AV Mean Gradient 18 mmHg AV VTI 42.38 cm AV Area (Cont Eq VTI) 2.19 cm2 >=3.00 AV Area (Cont Eq Kilo) 1.85 cm2 AV Regurgitation 2D LVOT Area 3.48 cm2 Ventricles Name Value Normal LV Dimensions 2D/MM IVS Diastolic Thickness (2D) 1.14 cm 0.60-1.00 LVID Diastole (2D) 5.47 cm 3.80-5.20 LVIW Diastolic Thickness (2D) 1.02 cm 0.60-0.90 LVID Systole (2D) 3.37 cm 2.20-3.50 LVOT Diameter 2.11 cm LV Mass (2D Cubed) 233.56 g 67.00-162.00 LV Mass Index (2D Cubed) 0.01 g/cm2 0.00-0.01 Relative Wall Thickness (2D) 0.37 LV Fractional Shortening/Ejection Fraction 2D/MM LV Fractional Shortening (2D) 38 % 27-45 LV EF (2D Teicholz) 68 % 54-74 LV Diastolic Volume (4C MOD) 97.48 ml LV EF (4C MOD) 61 % LV Diastolic Volume (2C MOD) 100.89 ml LV EF (2C MOD) 64 % LV Diastolic Volume (BP MOD) 102.75 ml 46.00-106.00 LV Diastolic Volume Index (BP MOD) 0.06 l/m2 0.03-0.06 LV Systolic Volume (BP MOD) 38.91 ml 14.00-42.00 LV Systolic Volume Index (BP MOD) 0.02 l/m2 0.01-0.02 LV EF (BP MOD) 62 % 54-74 LV Diastolic Length (4C) 6.71 cm LV Systolic Length (4C) 5.45 cm LV Stroke Volume (4C MOD) 59.42 ml Atria Name Value Normal LA Dimensions LA Volume (4C A-L) 39.49 ml LA Volume (BP A-L) 35.26 ml RA Dimensions RA Area (4C) 9.23 cm2 <=18.00 Report Signatures
[2024-01-19] MEDS: LACTATED RINGERS 1,000 ML 125 ML IV CONT ×2 (00:35→08:48)
[2024-01-19] MEDS: HEPARIN SOD/D5W 100 UNITS/ML 25,000 UNITS/250 ML BAG 10 UNITS IV CONT (00:36)
[2024-01-19] MEDS: PANTOPRAZOLE SODIUM IV 40 MG VIAL IV PUSH ×3 (00:42→20:21)
[2024-01-19 01:35] LABS: MRSA (PCR) NOT DETECTED (NOT DETECTE)
[2024-01-19] MEDS: IPRATROPIUM 0.5 MG/ALBUTEROL SULFATE 2.5 MG AMPUL.NEB 3 ML INHALATION ×4 (03:00→21:11)
--- NOTE | 2024-01-19 03:19 | PC.NURSE ---
education per PE provided to patient.
[2024-01-19 05:35] LABS: Alveolar/Arterial O2 Gradient 258.8 mmHg; Base Excess ABG -1.2 mEq/l (+/-2.0); Carboxyhemoglobin 0.3 % THb (0-2.0); Fractional Inspired Oxygen 50 %; HCO3 ABG 22.9 mEq/l (22.0-26.0); Oxygen Content ABG 13.5 %vol (16.0-22.0); Oxygen Saturation ABG 90.6 % (95.0-100.0); Oxyhemoglobin 90.7 % THb (90.0-100.0); PCO2 ABG 35.9 mmHg (35.0-45.0); PO2 ABG 57.3 mmHg (80.0-100.0); PO2 FiO2 Ratio Arterial Blood 1.15 %; Total Hemoglobin 10.6 g/dL (12.0-18.0); pH ABG 7.422 (7.350-7.450)
[2024-01-19 05:36] LABS: Modified Allen's Test Pass; Site Drawn LEFT RADIAL
[2024-01-19 05:37] LABS: Device NON-INVASIVE VENT; Non-Invasive Inspiratory Pressure 10 CMH2O; Non-Invasive Vent Rate 10 /MIN
[2024-01-19 05:38] LABS: Non-Invasive Expiratory Pressure 5 CMH2O
[2024-01-19] MEDS: LEVOTHYROXINE SODIUM 112 MCG TABLET PO (06:45)
[2024-01-19 06:59] LABS: Hematocrit 28.9 % (37.0-47.0); Hemoglobin 9.7 g/dL (12.0-15.0); Mean Corpuscular HGB Conc 33.6 g/dl (32-36); Mean Corpuscular Hemoglobin 31.9 pg (26-34); Mean Corpuscular Volume 95.1 fl (80-100); Mean Platelet Volume 11.7 fl (7.4-10.4); Platelet Count Result 163 k/mm3 (150-375); Red Blood Count 3.04 M/mm3 (4.2-5.4); White Blood Count 12.5 K/mm3 (4.5-10.0)
[2024-01-19 07:15] LABS: Partial Thromboplastin Time 87.3 Seconds (22.3-36.8)
[2024-01-19 07:20] LABS: Band Neutrophils Percent 8 % (0-6); Large Platelets Present; Lymphocytes Percent Manual 8 % (18-44); Monocytes Absolute Manual 0.75 K/mm3 (0.1-0.90); Monocytes Percent Manual 6 % (3-9); Neutrophils Absolute Manual 10.75 K/mm3 (1.7-7.2); Neutrophils Percent Manual 78 % (46-73); Nucleated Red Blood Cells 2 %; Platelet Estimate Decreased (Adequate); Total Cells Counted 100
[2024-01-19 07:21] LABS: Dohle Bodies Present; Schistocytes None Seen
[2024-01-19 07:22] LABS: Alanine Aminotransferase 16 U/L (6-35); Albumin Level 3.2 g/dL (3.5-5.1); Alkaline Phosphatase 82 U/L (38-126); Anion Gap 10 mmol/L (4-12); Aspartate Amino Transferase 27 U/L (14-36); Bilirubin,Total 1.9 mg/dL (0.2-1.3); Blood Urea Nitrogen 28 mg/dL (7-17); Calcium 8.4 mg/dL (8.4-10.2); Carbon Dioxide 25 mmol/L (22-30); Chloride 100 mmol/L (98-107); Estimated CRCL calculation 42 ml/min; Estimated Glomerular Filt Rate 55; Glucose 248 mg/dL (65-110); Magnesium 1.7 mg/dL (1.6-2.3); Phosphorus 2.5 mg/dL (2.5-4.5); Potassium 3.4 mmol/L (3.4-5.0); Sodium 135 mmol/L (137-145)
[2024-01-19 08:01] LABS: Glucose Point of Care 273 mg/dl (65-105)
[2024-01-19] MEDS: ASPIRIN 81 MG CHEWABLE TABLET PO (08:47)
[2024-01-19] MEDS: ATORVASTATIN 40 MG TABLET PO (08:47)
[2024-01-19] MEDS: CLOPIDOGREL BISULFATE 75 MG TABLET PO (08:47)
[2024-01-19] MEDS: SERTRALINE HCL 50 MG TABLET 100 MG PO (08:47)
[2024-01-19] MEDS: HYDROCORTISONE SODIUM SUCCINATE 100 MG/2 ML VIAL 50 MG IV PUSH ×4 (08:48→23:51)
[2024-01-19] MEDS: MAGNESIUM SULF 2 GM/WATER 50ML 2 GM/50 ML BAG IVPB (08:49)
[2024-01-19] MEDS: KCL 40 MEQ/WATER 100 ML 100 ML 25 ML IVPB (08:49)
[2024-01-19] MEDS: PERFLUTREN LIPID MICROSPHERES 1.5 ML VIAL DILUTED TO 10 ML TOTAL VOLUME IV PUSH (09:20)
--- NOTE | 2024-01-19 09:25 | P.CONIN_ITS ---
Assessment and Plan Assessment and plan (1) Septic shock: Code(s): A41.9 - Sepsis, unspecified organism; R65.21 - Severe sepsis with septic shock Status: Acute Assessment and Plan: 01/17: Patient presented with hypotension, elevated lactic acid levels, fevers, cough, hypoxia -received 30 mL/kg IV fluids -started on Levophed via femoral central line -Levophed has been off since 5:00 a.m. this morning -continue azithromycin and ceftriaxone (01/17) -continue bronchodilators -continue BiPAP for now 12/05 with adequate tidal volumes -wean FiO2 to maintain O2 sats greater than 92% -will try high-flow therapy, Airvo or Vapotherm -01/17: Blood cultures have been obtained and pending (2) Community acquired pneumonia: Qualifiers: Laterality: left Lung location: lower lobe of lung Qualified Code(s): J18.9 - Pneumonia, unspecified organism Code(s): J18.9 - Pneumonia, unspecified organism Status: Acute Assessment and Plan: Patient with community-acquired pneumonia -negative for RSV, SARS-CoV-2 a and influenza -continue antibiotics as above (3) Diabetes: Code(s): E11.9 - Type 2 diabetes mellitus without complications Status: Acute Assessment and Plan: Continue high-dose sliding scale insulin with Q 4 Accu-Cheks -currently (4) Acute kidney injury: Code(s): N17.9 - Acute kidney failure, unspecified Status: Acute Assessment and Plan: Acute kidney injury likely related to hypotension, septic shock -adequately fluid-resuscitated -continue IV fluids for additional 750 mL -urine output has been adequate, creatinine has normalized -continue to monitor urine output, electrolytes and renal function (5) Tobacco use: Code(s): Z72.0 - Tobacco use Status: Acute Assessment and Plan: Counseled patient on cessation of tobacco use (6) Pulmonary embolism: Code(s): I26.99 - Other pulmonary embolism without acute cor pulmonale Status: Acute Assessment and Plan: Continue heparin infusion small PE 01/17: CT chest abdomen and pelvis IMPRESSION: Nonocclusive acute subsegmental pulmonary embolus in the left lower lobe. Very small clot burden. No evidence of right heart strain. Left lower lobe pneumonia. Mild hepatomegaly. Possible cystitis. Otherwise, no acute abdominopelvic process detected. Plan DVT prophylaxis: Heparin infusion Stress ulcer prophylaxis: Protonix IV q.12 hours Nutrition: NPO Code Status: Full code Critical Care Time Spent: 51 minutes Due to a high probability of clinically significant, life threatening deterioration, the patient required my highest level of preparedness to intervene emergently and I personally spent this critical care time directly and personally managing the patient. This critical care time included obtaining a history; examining the patient; pulse oximetry; ordering and review of studies; arranging urgent treatment with development of a management plan; evaluation of patient's response to treatment; frequent reassessment; and discussions with other providers. It was exclusive of separately billable procedures and treating other patients and teaching time. Please see Assessment and Plan section and the rest of the note for further information on patient assessment and treatment This dictation may have been done utilizing a voice recognition system. Attempts have been made to correct errors. However, there may be uncorrected grammatical, spelling, and recognitions errors present. Public Affairs Director Consult Note Consult date: 01/19/24 Reason for consult: Pneumonia with hypoxia, septic shock, UTI, small left lower lobe PE with low clot burden HPI: Frances Lazo is a 68 year old female with significant past medical history of coronary artery disease, peptic ulcer disease status post EGD on 12/04/2023: History of C diff, essential hypertension, history of pulmonary embolism in 817 due to control use, hypothyroidism, tobacco use presented the ED on 01/18/2024 with complaints of shortness, cough and fevers for the past 3 days. Fevers were 102.3, along with nonproductive cough. She does have grandchildren at home with upper respiratory symptoms. She also complained of some decreased appetite. In the ER was hypoxic and was placed on high-flow oxygen, patient was also hypotensive and received 30 mL/kg IV fluid bolus despite which she was hypotensive, for which is central line was inserted in the right femoral and patient was started on Levophed. Chest CT showed small left lower lobe nonobstructive PE with low clot burden and left lower lobe consolidation consistent with pneumonia. Patient was started on azithromycin, ceftriaxone. Patient's WBC count was 14.2, hemoglobin of 10.5 and platelets of 163, creatinine 1.50, CO2 of 20, lactic of 3.0 on admission, repeat lactic acid was 2.1. Patient was transferred to the ICU for further management Patient seen and examined the ICU this morning, is awake, alert, able to answer questions. Daughter and [id number] at bedside and helping her with some answers since the patient is on BiPAP and tolerating well. White blood cell count has come down lactic acid is improving, patient has been off Levophed since 5:00 a.m. this morning. Urine output has been adequate, patient is afebrile. Complains of lower abdominal pain which has been chronic and follows Dr. Napier as outpatient Review of Systems Review of Systems: All systems reviewed & are unremarkable except as noted in HPI and below PMFSH Past Medical History Medical History Allergic rhinitis CAD (coronary artery disease) Diabetes Gastric cardia ulcer Noted on EGD 12/04/2023 History of Clostridium difficile infection (12/2022) HTN (hypertension) Hx of blood clots Pulmonary embolism at age 15 due to control use Hypothyroidism Tobacco use Surgical History Surgical History (Updated 01/18/24 @ 23:35 by Lisa Anderson DO) History of cardiac cath History of colonoscopy (04/02/23) History of coronary artery stent placement x1 History of esophagogastroduodenoscopy (EGD) (12/04/23) Hx of cholecystectomy Family History Family History Father Diabetes mellitus Cancer Mother Diabetes mellitus Social History Social History (Updated 01/19/24 @ 08:19 by Lisa Anderson DO) Social History: The patient lives in her own home. She has been since approximately 2019. She was for 50 years prior to her 's and they raised 6 children. She has approximately 32 grandchildren. 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 She has smoked a half a pack of cigarettes per day on average shins she was in her teens. She denies significant alcohol use history or history of drug use. Code status: Full code (she states that she would not want to be on a ventilator long-term or be completed dependent for care.) Healthcare power of reverse logistics analyst: Tiffany Vega (youngest daughter) Smoking packs per day: 0.5 Smoking cigarettes per day: 10.0 Years smoked: 53 Smoking pack-years: 26.50 Smoking status: Former smoker Smoking end date: 01/05/24 Alcohol intake: never Substance use: never Substance use type: does not use Do You Feel Safe in your Home?: Yes Lack of Transportation: No Lack of Food: Never True Current Housing: I Have Housing Concerned About Future Housing: No Difficulty Paying Gas/Electric Bills: No Difficulty Paying for Meds: No Currently Unemployed: No Education: High School Diploma/GED Difficulty w/ Childcare or Family Care: No Living arrangements: with family Spiritual care concerns: No Meds Home Medications and Allergies Home Medications Medication Instructions Recorded Confirmed Type metformin 500 mg tablet,extended 500 mg PO BID 12/20/22 01/18/24 History release 24 hr sertraline 100 mg tablet 100 mg PO DAILY 12/20/22 01/18/24 History clopidogrel 75 mg tablet 75 mg PO DAILY 12/26/22 01/18/24 History amlodipine 2.5 mg tablet 2.5 mg PO DAILY 09/09/23 01/18/24 History aspirin 81 mg tablet 81 mg PO DAILY 11/11/23 01/18/24 History atorvastatin 40 mg tablet 40 mg PO DAILY 01/18/24 01/18/24 History dicyclomine 10 mg capsule 10 mg PO TID 01/18/24 01/18/24 History furosemide 40 mg tablet 40 mg PO DAILY 01/18/24 01/18/24 History lansoprazole 15 mg capsule,delayed 15 mg PO DAILY 01/18/24 01/18/24 History release levothyroxine 112 mcg tablet 112 mcg PO DAILY 01/18/24 01/18/24 History nitroglycerin 0.4 mg sublingual 4 mg sublingual PRN PRN Chest Pain 01/18/24 01/18/24 History tablet Allergies Allergy/AdvReac Type Severity Reaction Status Date / Time naproxen AdvReac Itching Verified 01/18/24 22:24 Sulfa (Sulfonamide AdvReac Itching Verified 01/18/24 22:24 Antibiotics) Vital Signs Vital Signs - 24 hr 01/18/24 16:24 01/18/24 16:26 01/18/24 16:29 Temperature 97.6 F 97.8 F Pulse Rate 110 H 86 Respiratory Rate 23 H 18 Blood Pressure 129/69 121/79 Pulse Oximetry 92 100 86 L Oxygen Delivery Room Air Oxygen Flow Rate Fraction of Inspired Oxygen 01/18/24 16:50 01/18/24 17:03 01/18/24 17:05 Temperature Pulse Rate 99 95 Respiratory Rate 22 H 20 Blood Pressure Pulse Oximetry 94 Oxygen Delivery High Flow Nasal Cannula Oxygen Flow Rate 8 Fraction of Inspired Oxygen 01/18/24 19:55 01/18/24 16:30 01/18/24 17:00 Temperature Pulse Rate 100 104 H 94 Respiratory Rate 23 H 22 H 21 H Blood Pressure 98/55 L 103/55 L Pulse Oximetry 96 91 94 Oxygen Delivery BiPAP Oxygen Flow Rate Fraction of Inspired Oxygen 01/18/24 17:31 01/18/24 18:16 01/18/24 19:00 Temperature Pulse Rate 96 97 94 Respiratory Rate 21 H 21 H 20 Blood Pressure 122/60 129/52 L 100/55 L Pulse Oximetry 97 98 94 Oxygen Delivery Oxygen Flow Rate Fraction of Inspired Oxygen 01/18/24 19:30 01/18/24 19:45 01/18/24 20:00 Temperature Pulse Rate 96 92 100 Respiratory Rate 21 H 21 H 22 H Blood Pressure 93/47 L 70/45 L 91/45 L Pulse Oximetry 90 93 96 Oxygen Delivery Oxygen Flow Rate Fraction of Inspired Oxygen 01/18/24 20:23 01/18/24 18:30 01/18/24 20:26 Temperature Pulse Rate 96 98 101 H Respiratory Rate 27 H 23 H 16 Blood Pressure 103/52 L 112/80 Pulse Oximetry 96 89 L 96 Oxygen Delivery Oxygen Flow Rate Fraction of Inspired Oxygen 01/18/24 20:30 01/18/24 20:31 01/18/24 20:36 Temperature Pulse Rate 97 102 H 94 Respiratory Rate 26 H 24 H 25 H Blood Pressure 92/61 L 100/55 L Pulse Oximetry 96 96 95 Oxygen Delivery Oxygen Flow Rate Fraction of Inspired Oxygen 01/18/24 20:41 01/18/24 20:45 01/18/24 21:00 Temperature Pulse Rate 94 92 91 Respiratory Rate 24 H 20 25 H Blood Pressure 98/48 L Pulse Oximetry 97 98 97 Oxygen Delivery Oxygen Flow Rate Fraction of Inspired Oxygen 01/18/24 21:11 01/18/24 21:16 01/18/24 21:44 Temperature Pulse Rate 96 95 Respiratory Rate 18 20 Blood Pressure 97/42 L 89/37 L 92/39 L Pulse Oximetry 98 97 Oxygen Delivery Oxygen Flow Rate Fraction of Inspired Oxygen 01/18/24 21:45 01/18/24 22:00 01/18/24 22:06 Temperature 99.0 F Pulse Rate 94 89 96 Respiratory Rate 14 18 Blood Pressure 92/39 L 96/45 L 89/43 L Pulse Oximetry 96 99 Oxygen Delivery Oxygen Flow Rate Fraction of Inspired Oxygen 01/18/24 22:07 01/18/24 22:32 01/18/24 22:01 Temperature Pulse Rate 92 87 90 Respiratory Rate 20 Blood Pressure 89/43 L 101/40 L 96/45 L Pulse Oximetry 99 Oxygen Delivery Oxygen Flow Rate Fraction of Inspired Oxygen 01/18/24 22:11 01/18/24 22:15 01/18/24 22:16 Temperature Pulse Rate 95 87 87 Respiratory Rate 20 18 18 Blood Pressure 97/53 L 101/46 L Pulse Oximetry 98 98 98 Oxygen Delivery Oxygen Flow Rate Fraction of Inspired Oxygen 01/18/24 22:47 01/18/24 23:07 01/18/24 23:45 Temperature Pulse Rate 90 90 88 Respiratory Rate 15 14 Blood Pressure 101/48 L 106/60 116/41 L Pulse Oximetry 99 98 Oxygen Delivery Oxygen Flow Rate Fraction of Inspired Oxygen 01/19/24 00:00 01/19/24 00:15 01/19/24 00:30 Temperature Pulse Rate 86 87 89 Respiratory Rate Blood Pressure 122/63 125/81 144/58 H Pulse Oximetry Oxygen Delivery Oxygen Flow Rate Fraction of Inspired Oxygen 01/19/24 00:45 01/18/24 22:30 01/19/24 01:21 Temperature Pulse Rate 91 90 Respiratory Rate 32 H 23 H Blood Pressure 126/51 L Pulse Oximetry 96 99 Oxygen Delivery BiPAP BiPAP Oxygen Flow Rate Fraction of Inspired Oxygen 01/19/24 01:00 01/19/24 01:15 01/19/24 01:30 Temperature Pulse Rate 89 91 90 Respiratory Rate Blood Pressure 111/99 H 124/71 121/65 Pulse Oximetry Oxygen Delivery Oxygen Flow Rate Fraction of Inspired Oxygen 01/19/24 01:45 01/19/24 02:02 01/19/24 02:15 Temperature Pulse Rate 90 88 91 Respiratory Rate Blood Pressure 124/73 125/64 128/60 Pulse Oximetry Oxygen Delivery Oxygen Flow Rate Fraction of Inspired Oxygen 01/19/24 02:30 01/19/24 00:00 01/19/24 00:00 Temperature Pulse Rate 88 86 89 Respiratory Rate 19 Blood Pressure 123/62 Pulse Oximetry 97 Oxygen Delivery BiPAP Oxygen Flow Rate Fraction of Inspired Oxygen 65 01/19/24 00:00 01/19/24 02:00 01/19/24 02:00 Temperature 98.5 F Pulse Rate 86 88 88 Respiratory Rate 19 22 H Blood Pressure 122/63 125/64 Pulse Oximetry 97 98 Oxygen Delivery Oxygen Flow Rate Fraction of Inspired Oxygen 01/19/24 03:00 01/19/24 02:45 01/19/24 03:00 Temperature Pulse Rate 96 94 93 Respiratory Rate 24 H Blood Pressure 128/68 144/59 H Pulse Oximetry Oxygen Delivery Oxygen Flow Rate Fraction of Inspired Oxygen 01/19/24 03:11 01/19/24 03:15 01/19/24 03:30 Temperature 100.0 F H Pulse Rate 95 99 102 H Respiratory Rate 22 H Blood Pressure 144/59 H 114/80 115/79 Pulse Oximetry 96 Oxygen Delivery Oxygen Flow Rate Fraction of Inspired Oxygen 01/19/24 03:45 01/19/24 04:00 01/19/24 04:45 Temperature Pulse Rate 104 H 102 H 99 Respiratory Rate 20 Blood Pressure 117/62 115/56 L Pulse Oximetry 95 Oxygen Delivery BiPAP Oxygen Flow Rate Fraction of Inspired Oxygen 50 01/19/24 04:15 01/19/24 04:30 01/19/24 04:45 Temperature Pulse Rate 101 H 101 H 100 Respiratory Rate Blood Pressure 121/56 L 112/67 122/57 L Pulse Oximetry Oxygen Delivery Oxygen Flow Rate Fraction of Inspired Oxygen 01/19/24 05:00 01/19/24 06:51 01/19/24 06:55 Temperature Pulse Rate 98 102 H 101 H Respiratory Rate Blood Pressure 114/57 L 130/56 L Pulse Oximetry Oxygen Delivery Oxygen Flow Rate Fraction of Inspired Oxygen 01/19/24 06:55 01/19/24 07:43 01/19/24 07:44 Temperature 98.5 F Pulse Rate 102 H 99 90 Respiratory Rate 25 H 30 H 23 H Blood Pressure 130/56 L Pulse Oximetry 94 95 Oxygen Delivery BiPAP Oxygen Flow Rate Fraction of Inspired Oxygen 01/19/24 08:00 01/19/24 08:20 01/19/24 08:05 Temperature 98.7 F 100.7 F H Pulse Rate 105 H 97 Respiratory Rate 27 H 28 H Blood Pressure 113/58 L Pulse Oximetry 95 Oxygen Delivery Oxygen Flow Rate Fraction of Inspired Oxygen 01/19/24 07:40 Temperature Pulse Rate 99 Respiratory Rate 30 H Blood Pressure Pulse Oximetry 95 Oxygen Delivery BiPAP Oxygen Flow Rate Fraction of Inspired Oxygen 55 Exam Narrative: General: Pleasant female, on BiPAP, in no acute distress at this time HEENT:? Pupils equal and reactive, sclerae sclera, BiPAP mask in place Neck:? Supple Respiratory:? Coarse breath sounds bilaterally L > R. decreased breath sounds on left side, no wheezing, adequate air entry otherwise Cardiac:? S1-S2 was normal, regular rate and rhythm Abdomen:? Soft, distended, periumbilical tenderness to palpation, normoactive bowel sounds Extremities:? No edema, palpable pedal pulses Neuro:? Patient is awake, alert, able to answer questions and follows simple commands in all extremities Skin:? Warm and dry Psych:? Normal mentation and affect Results Labs 01/19/24 06:28 01/19/24 06:28 Labs: Short CBC 01/18/24 01/19/24 Range/Units 17:01 06:28 WBC 14.2 H 12.5 H (4.5-10.0) K/mm3 Hgb 10.5 L D 9.7 L (12.0-15.0) g/dL Hct 31.0 L 28.9 L (37.0-47.0) % Plt Count 163 163 (150-375) k/mm3 BMP 01/18/24 01/19/24 17:01 06:28 Sodium 134 L 135 L Potassium 3.7 3.4 Chloride 97 L 100 Carbon Dioxide 20 L 25 BUN 48 H D 28 H D Creatinine 1.50 H 1.00 Glucose 269 H 248 H Calcium 9.1 8.4 Cardiac Enzymes 01/18/24 Range/Units 17:01 Troponin I < 0.012 (0.000-0.034) ng/mL Liver Function 01/18/24 01/19/24 Range/Units 17:01 06:28 Total Bilirubin 2.3 H 1.9 H (0.2-1.3) mg/dL AST 34 27 (14-36) U/L ALT 22 16 (6-35) U/L Alkaline Phosphatase 95 82 (38-126) U/L Albumin 4.1 3.2 L (3.5-5.1) g/dL Urine 01/18/24 Range/Units 20:17 Urine Color Yellow (Yellow) Urine Appearance Cloudy H (Clear) Urine pH 5.5 (5.0-9.0) Ur Specific [place] 1.028 (1.001-1.035) Urine Protein 1+ H (Negative) mg/dL Urine Glucose (UA) Trace H (Negative) mg/dL Hospitalist MIPS Advance Care Plan I have confirmed that the patient's Advanced Care Plan is present, code status is documented, or surrogate decision maker is listed in patient medical record.: Yes Medication Reconciliation I have utilized all available resources to obtain, update and review the patients current medications (includes all prescriptions, OTC, herbals, cannabis, and nutritional supplements).: Yes
[2024-01-19] MEDS: LACTATED RINGERS 1,000 ML 75 ML IV CONT (09:54)
[2024-01-19 11:02] LABS: Alveolar/Arterial O2 Gradient 290.6 mmHg; Base Excess ABG -1.3 mEq/l (+/-2.0); Fractional Inspired Oxygen 55 %; HCO3 ABG 22.8 mEq/l (22.0-26.0); Oxygen Content ABG 13.3 %vol (16.0-22.0); Oxygen Saturation ABG 92.5 % (95.0-100.0); Oxyhemoglobin 91.7 % THb (90.0-100.0); PCO2 ABG 35.5 mmHg (35.0-45.0); PO2 ABG 62.1 mmHg (80.0-100.0); PO2 FiO2 Ratio Arterial Blood 1.13 %; Total Hemoglobin 10.3 g/dL (12.0-18.0); pH ABG 7.425 (7.350-7.450)
[2024-01-19 11:05] LABS: Device BIPAP; Expiratory Pressure 5 cmH2O; Inspiratory Pressure 10 cmH2O; Modified Allen's Test Pass; Site Drawn RIGHT RADIAL
[2024-01-19] MEDS: MORPHINE SULFATE (*CRX) 2 MG/ML INJ 1 MG IV PUSH ×2 (11:41→20:17)
--- NOTE | 2024-01-19 12:02 | IVDEFINITY ---
Prior to administration of IV Definity the patient was educated on the risks and benefits of the imaging enhancing agent including potential adverse side effects. The patient verbalized understanding. Allergies were verified. No exclusion criteria were identified and at least one of the following inclusion criteria were met: 1) physician request, 2) patient technically difficult to image (per the [place] [employer] guidelines of two or more segments not discernable within the apical view), or 3) questionable left ventricular function. ?
[2024-01-19 12:59] LABS: Glucose Point of Care 288 mg/dl (65-105)
[2024-01-19] MEDS: INSULIN ASPART (*BKC) 100 UNITS/ML SUB-Q ×4 (13:04→23:52)
[2024-01-19 13:27] LABS: Partial Thromboplastin Time 102.5 Seconds (22.3-36.8)
[2024-01-19 15:24] LABS: Hemoglobin A1C 8.4 % (<5.7)
[2024-01-19 16:30] LABS: Glucose Point of Care 260 mg/dl (65-105)
[2024-01-19] MEDS: AZITHROMYCIN 500 MG/NS 250 ML 500 MG/250 ML BAG 250 MG IVPB (17:15)
[2024-01-19 20:29] LABS: Glucose Point of Care 254 mg/dl (65-105)
[2024-01-20] VITALS (28 sets, daily range): BP systolic 112–141; BP diastolic 55–68; PULSE 73–104; RESP 9–30; TEMP 36.3–37.4; O2SAT 90–99
[2024-01-20 00:01] LABS: Glucose Point of Care 247 mg/dl (65-105)
[2024-01-20] MEDS: HEPARIN SOD/D5W 100 UNITS/ML 25,000 UNITS/250 ML BAG 10 UNITS IV CONT (01:16)
[2024-01-20] MEDS: IPRATROPIUM 0.5 MG/ALBUTEROL SULFATE 2.5 MG AMPUL.NEB 3 ML INHALATION ×4 (02:34→19:24)
[2024-01-20] MEDS: INSULIN ASPART (*BKC) 100 UNITS/ML SUB-Q ×4 (04:10→20:03)
[2024-01-20] MEDS: MORPHINE SULFATE (*CRX) 2 MG/ML INJ 1 MG IV PUSH ×3 (04:27→20:04)
[2024-01-20 04:32] LABS: Glucose Point of Care 272 mg/dl (65-105)
[2024-01-20 05:17] LABS: Alveolar/Arterial O2 Gradient 286.7 mmHg; Base Excess ABG -2.1 mEq/l (+/-2.0); Carboxyhemoglobin 0.2 % THb (0-2.0); Fractional Inspired Oxygen 55 %; HCO3 ABG 22.3 mEq/l (22.0-26.0); Methemoglobin ABG 0.3 %THb (0-1.5); Oxygen Content ABG 12.9 %vol (16.0-22.0); Oxygen Saturation ABG 92.9 % (95.0-100.0); Oxyhemoglobin 91.7 % THb (90.0-100.0); PCO2 ABG 36.6 mmHg (35.0-45.0); PO2 ABG 64.7 mmHg (80.0-100.0); PO2 FiO2 Ratio Arterial Blood 1.18 %; Reduced Hemoglobin 7.8 %THb (0-5.0); pH ABG 7.403 (7.350-7.450)
[2024-01-20 05:18] LABS: Device BIPAP; Inspiratory Pressure 10 cmH2O; Modified Allen's Test Pass; Site Drawn RIGHT RADIAL
[2024-01-20 05:19] LABS: Expiratory Pressure 5 cmH2O
[2024-01-20] MEDS: LEVOTHYROXINE SODIUM 112 MCG TABLET PO (05:46)
[2024-01-20] MEDS: HYDROCORTISONE SODIUM SUCCINATE 100 MG/2 ML VIAL 50 MG IV PUSH (05:46)
[2024-01-20 06:04] LABS: Hematocrit 27.9 % (37.0-47.0); Hemoglobin 9.1 g/dL (12.0-15.0); Mean Corpuscular HGB Conc 32.6 g/dl (32-36); Mean Corpuscular Hemoglobin 31.4 pg (26-34); Mean Corpuscular Volume 96.2 fl (80-100); Mean Platelet Volume 11.2 fl (7.4-10.4); Platelet Count Result 160 k/mm3 (150-375); Red Cell Distribution Width 14.4 % (11.5-14.5); White Blood Count 17.9 K/mm3 (4.5-10.0)
[2024-01-20 06:13] LABS: Lactic Acid Reflex 1.1 mmol/L (0.7-2.0)
[2024-01-20 06:17] LABS: Partial Thromboplastin Time 103.9 Seconds (22.3-36.8)
[2024-01-20 06:20] LABS: Alanine Aminotransferase 16 U/L (6-35); Albumin Level 3.2 g/dL (3.5-5.1); Alkaline Phosphatase 83 U/L (38-126); Anion Gap 11 mmol/L (4-12); Aspartate Amino Transferase 27 U/L (14-36); Bilirubin,Total 1.3 mg/dL (0.2-1.3); Blood Urea Nitrogen 25 mg/dL (7-17); Calcium 8.5 mg/dL (8.4-10.2); Carbon Dioxide 25 mmol/L (22-30); Chloride 103 mmol/L (98-107); Estimated CRCL calculation 46 ml/min; Estimated Glomerular Filt Rate > 60; Glucose 270 mg/dL (65-110); Magnesium 2.3 mg/dL (1.6-2.3); Phosphorus 3.2 mg/dL (2.5-4.5); Potassium 3.5 mmol/L (3.4-5.0); Sodium 139 mmol/L (137-145)
[2024-01-20 06:38] LABS: Band Neutrophils Percent 7 % (0-6); Lymphocytes Absolute Manual 1.79 K/mm3 (1.1-4.5); Lymphocytes Percent Manual 10 % (18-44); Monocytes Absolute Manual 1.25 K/mm3 (0.1-0.90); Monocytes Percent Manual 7 % (3-9); Neutrophils Absolute Manual 14.85 K/mm3 (1.7-7.2); Neutrophils Percent Manual 76 % (46-73); Platelet Estimate Decreased (Adequate); Total Cells Counted 100
[2024-01-20 06:39] LABS: Dohle Bodies Present; Schistocytes None Seen
[2024-01-20 06:40] LABS: Large Platelets Present
[2024-01-20 06:49] LABS: CRP > 45.0 mg/dL (<1.0)
[2024-01-20 08:05] LABS: Glucose Point of Care 276 mg/dl (65-105)
[2024-01-20] MEDS: ASPIRIN 81 MG CHEWABLE TABLET PO (08:55)
[2024-01-20] MEDS: PANTOPRAZOLE SODIUM IV 40 MG VIAL IV PUSH ×2 (08:55→20:03)
[2024-01-20] MEDS: ATORVASTATIN 40 MG TABLET PO (08:55)
[2024-01-20] MEDS: SERTRALINE HCL 50 MG TABLET 100 MG PO (08:56)
[2024-01-20] MEDS: CLOPIDOGREL BISULFATE 75 MG TABLET PO (08:56)
[2024-01-20] MEDS: INSULIN GLARGINE (*BKC) 100 UNITS/ML 15 UNITS SUB-Q (08:56)
--- NOTE | 2024-01-20 09:34 | P.PNINT_ITS ---
Progress Note: A&P Assessment and Plan (1) Septic shock: Code(s): A41.9 - Sepsis, unspecified organism; R65.21 - Severe sepsis with septic shock Status: Acute Assessment and Plan: 01/17: Patient presented with hypotension, elevated lactic acid levels, fevers, cough, hypoxia -received 30 mL/kg IV fluids -started on Levophed via femoral central line - Off IV fluids vasopressors now -continue azithromycin and ceftriaxone (01/17) -01/17: Blood cultures have been obtained and pending (2) Community acquired pneumonia: Qualifiers: Laterality: left Lung location: lower lobe of lung Qualified Code(s): J18.9 - Pneumonia, unspecified organism Code(s): J18.9 - Pneumonia, unspecified organism Status: Acute Assessment and Plan: Patient with community-acquired pneumonia -negative for RSV, SARS-CoV-2 a and influenza -continue antibiotics as above (3) Diabetes: Code(s): E11.9 - Type 2 diabetes mellitus without complications Status: Acute Assessment and Plan: Continue high-dose sliding scale insulin with Q 4 Accu-Cheks (4) Acute kidney injury: Code(s): N17.9 - Acute kidney failure, unspecified Status: Acute Assessment and Plan: Acute kidney injury likely related to hypotension, septic shock -adequately fluid-resuscitated - Off IV fluids now -urine output has been adequate, creatinine has normalized -continue to monitor urine output, electrolytes and renal function (5) Tobacco use: Code(s): Z72.0 - Tobacco use Status: Acute Assessment and Plan: Counseled patient on cessation of tobacco use (6) Pulmonary embolism: Code(s): I26.99 - Other pulmonary embolism without acute cor pulmonale Status: Acute Assessment and Plan: Continue heparin infusion small PE Venous Dopplers negative 01/17: CT chest abdomen and pelvis IMPRESSION: Nonocclusive acute subsegmental pulmonary embolus in the left lower lobe. Very small clot burden. No evidence of right heart strain. Left lower lobe pneumonia. Mild hepatomegaly. Possible cystitis. Otherwise, no acute abdominopelvic process detected. Echo Summary 1. Left ventricular systolic function is normal, estimated at 55-60%. 2. There is mildly increased left ventricular wall thickness. 3. The left ventricular diastolic function is grade I diastolic dysfunction. 4. There is trace mitral valve regurgitation. 5. There is trace tricuspid valve regurgitation. 6. No pulmonary hypertension, estimated pulmonary arterial systolic pressure is 41 mmHg. 7. Right ventricular systolic function is normal. 8. Right ventricular chamber dimension is normal. (7) Acute respiratory failure: Code(s): J96.00 - Acute respiratory failure, unspecified whether with hypoxia or hypercapnia Status: Acute Assessment and Plan: Acute Respiratory failure secondary to pneumonia and PE On BiPAP this morning 12/05 55%. Clinically appears much better. Will transition to Airvo and see if patient tolerates. Continue BiPAP p.r.n. Continue Bronchodilators Treatment of pneumonia and PE as above Chest x-ray reviewed Plan DVT prophylaxis: Heparin infusion Stress ulcer prophylaxis: Protonix IV q.12 hours Nutrition: NPO Code Status: Full code Critical Care Time Spent: 35 minutes Due to a high probability of clinically significant, life threatening deterioration, the patient required my highest level of preparedness to inter vene emergently and I personally spent this critical care time directly and personally managing the patient. This critical care time included obtaining a history; examining the patient; pulse oximetry; ordering and review of studies; arranging urgent treatment with development of a management plan; evaluation of patient's response to treatment; frequent reassessment; and discussions with other providers. It was exclusive of separately billable procedures and treating other patients and teaching time. Please see Assessment and Plan section and the rest of the note for further information on patient assessment and treatment This dictation may have been done utilizing a voice recognition system. Attempts have been made to correct errors. However, there may be uncorrected grammatical, spelling, and recognitions errors present. Subjective Date/time seen: 01/20/24 Overnight events reviewed. Patient is on BiPAP. At 55% FiO2. 12/05. Off vasopressors. She states she feels unchanged. She still has intermittent shortness of breath. She has cough which is dry. She denies any chest pain abdominal pain nausea vomiting diarrhea. She feels thirsty and would like to eat food and drink water. She denies any other complaints. All other systems were reviewed and were negative. Review of Systems Review of Systems: All systems reviewed & are unremarkable except as noted in HPI and below Exam Narrative: General: Pleasant female, on BiPAP, in no acute distress at this time HEENT:? Pupils equal and reactive, sclerae sclera, BiPAP mask in place Neck:? Supple Respiratory:? Coarse breath sounds bilaterally L > R. decreased breath sounds on left side, no wheezing, adequate air entry otherwise, no tachypnea no respiratory distress no use accessory muscles Cardiac:? S1-S2 was normal, regular rate and rhythm Abdomen:? Soft, distended, periumbilical tenderness to palpation, normoactive bowel sounds Extremities:? No edema, palpable pedal pulses Neuro:? Patient is awake, alert, able to answer questions and follows simple commands in all extremities Skin:? Warm and dry Psych:? Normal mentation and affect Objective Data Vital Signs Vital Signs: Vital Signs - 24 hr 01/19/24 10:00 01/19/24 10:00 01/19/24 10:00 Temperature Pulse Rate 101 H 101 H 100 Respiratory Rate 26 H Blood Pressure 111/58 L 111/58 L Pulse Oximetry 94 Oxygen Delivery Oxygen Flow Rate Fraction of Inspired Oxygen 01/19/24 11:00 01/19/24 12:00 01/19/24 12:00 Temperature Pulse Rate 98 98 98 Respiratory Rate 30 H 23 H Blood Pressure 109/56 L Pulse Oximetry 94 94 Oxygen Delivery BiPAP BiPAP Oxygen Flow Rate Fraction of Inspired Oxygen 55 01/19/24 12:00 01/19/24 12:00 01/19/24 12:00 Temperature 37.1 C Pulse Rate 98 97 Respiratory Rate 24 H Blood Pressure 109/56 L Pulse Oximetry 94 Oxygen Delivery Oxygen Flow Rate Fraction of Inspired Oxygen 01/19/24 14:28 01/19/24 14:28 01/19/24 14:28 Temperature Pulse Rate 92 92 92 Respiratory Rate 22 H 22 H 22 H Blood Pressure Pulse Oximetry 95 Oxygen Delivery BiPAP BiPAP Oxygen Flow Rate Fraction of Inspired Oxygen 55 01/19/24 14:38 01/19/24 14:00 01/19/24 14:00 Temperature Pulse Rate 87 94 94 Respiratory Rate 24 H 20 Blood Pressure 108/81 Pulse Oximetry 94 Oxygen Delivery Oxygen Flow Rate Fraction of Inspired Oxygen 01/19/24 14:00 01/19/24 16:00 01/19/24 16:00 Temperature 37.4 C Pulse Rate 94 93 94 Respiratory Rate 23 H Blood Pressure 108/81 115/54 L 115/54 L Pulse Oximetry 94 Oxygen Delivery Oxygen Flow Rate Fraction of Inspired Oxygen 01/19/24 16:00 01/19/24 16:00 01/19/24 17:03 Temperature Pulse Rate 94 94 99 Respiratory Rate 23 H 19 Blood Pressure Pulse Oximetry 94 94 Oxygen Delivery BiPAP BiPAP Oxygen Flow Rate Fraction of Inspired Oxygen 55 01/19/24 18:00 01/19/24 18:00 01/19/24 18:00 Temperature Pulse Rate 93 92 93 Respiratory Rate 25 H Blood Pressure 113/58 L 113/58 L Pulse Oximetry 92 Oxygen Delivery Oxygen Flow Rate Fraction of Inspired Oxygen 01/19/24 21:12 01/19/24 21:12 01/19/24 21:19 Temperature Pulse Rate 89 89 89 Respiratory Rate 22 H 22 H 21 H Blood Pressure Pulse Oximetry 94 Oxygen Delivery BiPAP Oxygen Flow Rate Fraction of Inspired Oxygen 01/19/24 20:00 01/19/24 20:00 01/19/24 20:00 Temperature 37.2 C Pulse Rate 89 88 Respiratory Rate 21 H Blood Pressure 114/60 Pulse Oximetry 93 Oxygen Delivery BiPAP Oxygen Flow Rate Fraction of Inspired Oxygen 01/19/24 22:00 01/19/24 22:00 01/19/24 23:18 Temperature Pulse Rate 90 90 86 Respiratory Rate 23 H 18 Blood Pressure 112/52 L Pulse Oximetry 93 93 Oxygen Delivery BiPAP Oxygen Flow Rate Fraction of Inspired Oxygen 01/20/24 00:00 01/20/24 00:00 01/20/24 00:00 Temperature 37.4 C Pulse Rate 84 84 Respiratory Rate 19 Blood Pressure 113/55 L Pulse Oximetry 94 Oxygen Delivery BiPAP Oxygen Flow Rate Fraction of Inspired Oxygen 01/20/24 02:34 01/20/24 02:35 01/20/24 02:50 Temperature Pulse Rate 83 83 83 Respiratory Rate 19 20 9 L Blood Pressure Pulse Oximetry 99 Oxygen Delivery BiPAP Oxygen Flow Rate Fraction of Inspired Oxygen 01/20/24 02:00 01/20/24 02:00 01/20/24 04:00 Temperature 37.2 C Pulse Rate 83 83 81 Respiratory Rate 19 15 Blood Pressure 123/61 112/56 L Pulse Oximetry 95 97 Oxygen Delivery Oxygen Flow Rate Fraction of Inspired Oxygen 01/20/24 04:00 01/20/24 04:00 01/20/24 05:11 Temperature Pulse Rate 82 84 Respiratory Rate 22 H Blood Pressure Pulse Oximetry 94 Oxygen Delivery BiPAP BiPAP Oxygen Flow Rate Fraction of Inspired Oxygen 01/20/24 06:00 01/20/24 06:00 01/20/24 07:57 Temperature Pulse Rate 84 84 81 Respiratory Rate 22 H 22 H Blood Pressure 117/60 Pulse Oximetry 92 Oxygen Delivery Oxygen Flow Rate Fraction of Inspired Oxygen 01/20/24 08:07 01/20/24 08:07 Temperature Pulse Rate 83 Respiratory Rate 21 H Blood Pressure Pulse Oximetry 94 Oxygen Delivery High Flow Therapy with Na Oxygen Flow Rate 60 Fraction of Inspired Oxygen 68 Intake/Output Intake/Output: Intake & Output 01/17/24 01/18/24 01/19/24 01/20/24 23:59 23:59 23:59 23:59 Intake Total 3411.7 3333.6 155.5 Output Total 2575 425 Balance 3411.7 758.6 -269.5 Meds/Results Medications: Active Medications Generic Name Dose Route Start Last Admin Trade Name Freq PRN Reason Stop Dose Admin Albuterol/Ipratropium 3 ml 01/19/24 02:00 01/20/24 07:57 Ipratropium 0.5 Mg/Albuterol Sulfate 2.5 Mg Ampul.Neb 3 Ml INHALATION 3 ml Q6HRT EDMOND Administration Aspirin 81 mg 01/19/24 08:00 01/20/24 08:55 Aspirin 81 Mg Chewable Tablet PO 81 mg DAILY@0800 EDMOND Administration Atorvastatin Calcium 40 mg 01/19/24 09:00 01/20/24 08:55 Atorvastatin 40 Mg Tablet PO 40 mg DAILY EDMOND Administration Clopidogrel Bisulfate 75 mg 01/19/24 09:00 01/20/24 08:56 Clopidogrel Bisulfate 75 Mg Tablet PO 75 mg DAILY EDMOND Administration Dextrose 12.5 gm 01/18/24 23:28 Dextrose 50% 25 Gm/50 Ml Syringe IV PUSH PRN PRN Hypoglycemia Protocol Glucagon 1 mg 01/18/24 23:28 Glucagon For Inj 1 Mg Vial IM PRN PRN Hypoglycemia Protocol Glucose 15 gm 01/18/24 23:28 Glucose Oral Gel 15 Gm Of Glucse In 37.5 Gm Tube PO PRN PRN Hypoglycemia Protocol Heparin Sodium (Porcine) 4,500 units 01/18/24 23:25 Heparin Sodium 5,000 Units/Ml Vial IV PUSH PRN PRN aPTT less than 55 seconds Heparin Sodium (Porcine) 2,500 units 01/18/24 23:25 Heparin Sodium 5,000 Units/Ml Vial IV PUSH PRN PRN aPTT 55 - 70 seconds Norepinephrine Bitartrate 8 mg in 250 mls @ 0 mls/hr 01/18/24 21:25 01/19/24 18:00 Levophed 8 Mg/D5w 250 Ml IV CONT 0 mcg/min .Q0M EDMOND 0 mls/hr Titration Protocol Ceftriaxone Sodium 1 gm in 50 mls @ 100 mls/hr 01/19/24 17:00 01/19/24 17:45 Rocephin 1 Gm/Ns 50 Ml IVPB Infused Q24H EDMOND Infusion Azithromycin 500 mg in 250 mls @ 250 mls/hr 01/19/24 18:00 01/19/24 18:15 Zithromax IVPB Infused Q24H EDMOND Infusion Heparin Sodium/Dextrose 25,000 units in 250 mls @ 10 mls/hr 01/18/24 23:25 01/20/24 05:44 Heparin Sodium/D5w 100 Units/Ml IV CONT 1,000 units/hr .Q24H EDMOND 10 mls/hr Titration Protocol 1,000 UNITS/HR Dextrose 1,000 mls @ 100 mls/hr 01/18/24 23:28 Dextrose 5% 1,000 Ml IVPB PRN PRN Hypoglycemia Protocol Insulin Aspart 4 - 8 units 01/19/24 12:00 01/20/24 09:09 Insulin Aspart (*Bkc) 100 Units/Ml SUB-Q 5 units Q4H EDMOND Administration Protocol Levothyroxine Sodium 112 mcg 01/19/24 06:30 01/20/24 05:46 Levothyroxine Sodium 112 Mcg Tablet PO 112 mcg DAILY@0630 [facility] Administration Morphine Sulfate 1 mg 01/19/24 10:32 01/20/24 04:27 Morphine Sulfate (*Crx) 2 Mg/Ml Inj IV PUSH 1 mg Q4H PRN Administration Pain Rated 6 or Greater Ondansetron HCl 4 mg 01/18/24 22:13 Ondansetron Inj 4 Mg/2 Ml Vial IV PUSH Q4H PRN Nausea Pantoprazole Sodium 40 mg 01/19/24 09:00 01/20/24 08:55 Pantoprazole Sodium Iv 40 Mg Vial IV PUSH 40 mg Q12HR EDMOND Administration Sertraline HCl 100 mg 01/19/24 09:00 01/20/24 08:56 Sertraline Hcl 50 Mg Tablet PO 100 mg DAILY EDMOND Administration Radiology Results: ITS Impressions Chest/Abdomen/Pelvis CTA 01/18/24 18:30 IMPRESSION: Nonocclusive acute subsegmental pulmonary embolus in the left lower lobe. Very small clot burden. No evidence of right heart strain. Left lower lobe pneumonia. Mild hepatomegaly. Possible cystitis. Otherwise, no acute abdominopelvic process detected. Head CT 01/19/24 05:47 Impression: No intracranial hemorrhage, mass, or acute infarct. Atrophy and chronic white matter changes, as above. Abdomen X-Ray 01/19/24 09:56 IMPRESSION: 1. No free intraperitoneal gas or dilated gas-filled loops of bowel to suggest obstruction. 2. Pneumonia in the left lower lung zone. Venous Doppler Study 01/19/24 15:06 IMPRESSION: Negative bilateral lower extremity venous US. No deep vein thrombosis. Chest X-Ray 01/20/24 06:17 Impression: Left lower lobe consolidation with more hazy/interstitial disease in the perihilar regions and right lower lobe. Correlate for pulmonary edema/atelectasis versus pneumonia, with findings again worst at the left lower lobe. Labs Labs: Laboratory Results - last 24 hr 01/19/24 01/19/24 01/19/24 06:28 10:56 12:55 WBC RBC Hgb Hct MCV MCH MCHC RDW Plt Count MPV Immature Gran % (Auto) Neut % (Auto) Lymph % (Auto) Saunders % (Auto) Eos % (Auto) Baso % (Auto) Lymph # (Auto) Saunders # (Auto) Eos # (Auto) Baso # (Auto) Abs Immat Gran (auto) Absolute Neuts (auto) Absolute Nucleated RBC Total Counted Neutrophils % (Manual) Band Neutrophils % Lymphocytes % (Manual) Monocytes % (Manual) Nucleated RBC % Abs Neuts (Manual) Abs Lymphs (Manual) Abs Monocytes (Manual) Dohle Bodies Platelet Estimate Large Platelets Schistocytes APTT Puncture Site Right radial ABG pH 7.425 ABG pCO2 35.5 ABG pO2 62.1 L ABG PO2/FiO2 Ratio 1.13 ABG HCO3 22.8 ABG O2 Saturation 92.5 L ABG O2 Content 13.3 L ABG Base Excess -1.3 A-a Gradient 290.6 Oxyhemoglobin 91.7 Carboxyhemoglobin Methemoglobin Reduced Hemoglobin Total Hemoglobin 10.3 L O2 Delivery Device Bipap O2 Liters/Min Not Reportable FiO2 55 Expiratory Pressure 5 Inspiratory Pressure 10 Sodium Potassium Chloride Carbon Dioxide Anion Gap BUN Creatinine Estim Creat Clear Calc Estimated GFR Glucose POC Capillary Glucose 288 H Hemoglobin A1c 8.4 H Lactic Acid Calcium Phosphorus Magnesium Total Bilirubin AST ALT Alkaline Phosphatase C-Reactive Protein Total Protein Albumin TSH 5.510 H 01/19/24 01/19/24 01/19/24 13:01 16:26 20:16 WBC RBC Hgb Hct MCV MCH MCHC RDW Plt Count MPV Immature Gran % (Auto) Neut % (Auto) Lymph % (Auto) Saunders % (Auto) Eos % (Auto) Baso % (Auto) Lymph # (Auto) Saunders # (Auto) Eos # (Auto) Baso # (Auto) Abs Immat Gran (auto) Absolute Neuts (auto) Absolute Nucleated RBC Total Counted Neutrophils % (Manual) Band Neutrophils % Lymphocytes % (Manual) Monocytes % (Manual) Nucleated RBC % Abs Neuts (Manual) Abs Lymphs (Manual) Abs Monocytes (Manual) Dohle Bodies Platelet Estimate Large Platelets Schistocytes APTT 102.5 H Puncture Site ABG pH ABG pCO2 ABG pO2 ABG PO2/FiO2 Ratio ABG HCO3 ABG O2 Saturation ABG O2 Content ABG Base Excess A-a Gradient Oxyhemoglobin Carboxyhemoglobin Methemoglobin Reduced Hemoglobin Total Hemoglobin O2 Delivery Device O2 Liters/Min FiO2 Expiratory Pressure Inspiratory Pressure Sodium Potassium Chloride Carbon Dioxide Anion Gap BUN Creatinine Estim Creat Clear Calc Estimated GFR Glucose POC Capillary Glucose 260 H 254 H Hemoglobin A1c Lactic Acid Calcium Phosphorus Magnesium Total Bilirubin AST ALT Alkaline Phosphatase C-Reactive Protein Total Protein Albumin TSH 01/19/24 01/20/24 01/20/24 23:52 04:07 05:12 WBC RBC Hgb Hct MCV MCH MCHC RDW Plt Count MPV Immature Gran % (Auto) Neut % (Auto) Lymph % (Auto) Saunders % (Auto) Eos % (Auto) Baso % (Auto) Lymph # (Auto) Saunders # (Auto) Eos # (Auto) Baso # (Auto) Abs Immat Gran (auto) Absolute Neuts (auto) Absolute Nucleated RBC Total Counted Neutrophils % (Manual) Band Neutrophils % Lymphocytes % (Manual) Monocytes % (Manual) Nucleated RBC % Abs Neuts (Manual) Abs Lymphs (Manual) Abs Monocytes (Manual) Dohle Bodies Platelet Estimate Large Platelets Schistocytes APTT Puncture Site Right radial ABG pH 7.403 ABG pCO2 36.6 ABG pO2 64.7 L ABG PO2/FiO2 Ratio 1.18 ABG HCO3 22.3 ABG O2 Saturation 92.9 L ABG O2 Content 12.9 L ABG Base Excess -2.1 A-a Gradient 286.7 Oxyhemoglobin 91.7 Carboxyhemoglobin 0.2 Methemoglobin 0.3 Reduced Hemoglobin 7.8 H Total Hemoglobin 10.0 L O2 Delivery Device Bipap O2 Liters/Min Not Reportable FiO2 55 Expiratory Pressure 5 Inspiratory Pressure 10 Sodium Potassium Chloride Carbon Dioxide Anion Gap BUN Creatinine Estim Creat Clear Calc Estimated GFR Glucose POC Capillary Glucose 247 H 272 H Hemoglobin A1c Lactic Acid Calcium Phosphorus Magnesium Total Bilirubin AST ALT Alkaline Phosphatase C-Reactive Protein Total Protein Albumin TSH 01/20/24 01/20/24 05:44 08:03 WBC 17.9 H RBC 2.90 L Hgb 9.1 L Hct 27.9 L MCV 96.2 MCH 31.4 MCHC 32.6 RDW 14.4 Plt Count 160 MPV 11.2 H Immature Gran % (Auto) Not Reportable Neut % (Auto) Not Reportable Lymph % (Auto) Not Reportable Saunders % (Auto) Not Reportable Eos % (Auto) Not Reportable Baso % (Auto) Not Reportable Lymph # (Auto) Not Reportable Saunders # (Auto) Not Reportable Eos # (Auto) Not Reportable Baso # (Auto) Not Reportable Abs Immat Gran (auto) Not Reportable Absolute Neuts (auto) Not Reportable Absolute Nucleated RBC Not Reportable Total Counted 100 Neutrophils % (Manual) 76 H Band Neutrophils % 7 H Lymphocytes % (Manual) 10 L Monocytes % (Manual) 7 Nucleated RBC % Not Reportable Abs Neuts (Manual) 14.85 H Abs Lymphs (Manual) 1.79 Abs Monocytes (Manual) 1.25 H Dohle Bodies Present Platelet Estimate Decreased Large Platelets Present Schistocytes None seen APTT 103.9 H Puncture Site ABG pH ABG pCO2 ABG pO2 ABG PO2/FiO2 Ratio ABG HCO3 ABG O2 Saturation ABG O2 Content ABG Base Excess A-a Gradient Oxyhemoglobin Carboxyhemoglobin Methemoglobin Reduced Hemoglobin Total Hemoglobin O2 Delivery Device O2 Liters/Min FiO2 Expiratory Pressure Inspiratory Pressure Sodium 139 Potassium 3.5 Chloride 103 Carbon Dioxide 25 Anion Gap 11 BUN 25 H Creatinine 0.90 Estim Creat Clear Calc 46 Estimated GFR > 60 Glucose 270 H POC Capillary Glucose 276 H Hemoglobin A1c Lactic Acid 1.1 Calcium 8.5 Phosphorus 3.2 Magnesium 2.3 Total Bilirubin 1.3 AST 27 ALT 16 Alkaline Phosphatase 83 C-Reactive Protein > 45.0 H Total Protein 7.0 Albumin 3.2 L TSH Quality VTE Prophylaxis VTE prophylaxis: pharmacologic ordered (Heparin GGT per protocol)
[2024-01-20] MEDS: ACETAMINOPHEN 325 MG TABLET 650 MG PO (10:29)
[2024-01-20 12:41] LABS: Glucose Point of Care 246 mg/dl (65-105)
[2024-01-20 16:19] LABS: Glucose Point of Care 183 mg/dl (65-105)
[2024-01-20] MEDS: AZITHROMYCIN 500 MG/NS 250 ML 500 MG/250 ML BAG 250 MG IVPB (17:17)
[2024-01-20] MEDS: FUROSEMIDE INJ 40 MG/4 ML VIAL IV PUSH (18:01)
[2024-01-20 18:10] LABS: Alveolar/Arterial O2 Gradient 597.1 mmHg; Base Excess ABG -2.7 mEq/l (+/-2.0); Device NON-INVASIVE VENT; Fractional Inspired Oxygen 100 %; HCO3 ABG 22.7 mEq/l (22.0-26.0); Modified Allen's Test Pass; Oxygen Content ABG 15.1 %vol (16.0-22.0); Oxygen Saturation ABG 94.4 % (95.0-100.0); Oxyhemoglobin 93.6 % THb (90.0-100.0); PCO2 ABG 41.6 mmHg (35.0-45.0); PO2 ABG 74.3 mmHg (80.0-100.0); PO2 FiO2 Ratio Arterial Blood 0.74 %; Site Drawn LEFT RADIAL; Total Hemoglobin 11.4 g/dL (12.0-18.0); pH ABG 7.354 (7.350-7.450)
[2024-01-20 18:11] LABS: Non-Invasive Expiratory Pressure 6 CMH2O; Non-Invasive Inspiratory Pressure 12 CMH2O; Non-Invasive Vent Rate 14 /MIN
[2024-01-20 20:35] LABS: Glucose Point of Care 211 mg/dl (65-105)
--- NOTE | 2024-01-20 20:45 | PC.NURSE ---
Dr. Dunbar updated on patient condition and respiratory status. Staff will continue to monitor patient, updated Dr. Causey on patient current status.
[2024-01-21] VITALS (39 sets, daily range): BP systolic 97–153; BP diastolic 48–68; PULSE 82–119; RESP 21–32; TEMP 36.4–37.8; O2SAT 91–98; BMI 30.9
[2024-01-21] MEDS: INSULIN ASPART (*BKC) 100 UNITS/ML SUB-Q ×5 (00:08→20:25)
[2024-01-21 00:12] LABS: Glucose Point of Care 202 mg/dl (65-105)
[2024-01-21] MEDS: IPRATROPIUM 0.5 MG/ALBUTEROL SULFATE 2.5 MG AMPUL.NEB 3 ML INHALATION ×4 (01:39→20:32)
[2024-01-21] MEDS: HEPARIN SOD/D5W 100 UNITS/ML 25,000 UNITS/250 ML BAG 10 UNITS IV CONT (02:46)
[2024-01-21 04:43] LABS: Glucose Point of Care 226 mg/dl (65-105)
[2024-01-21 05:18] LABS: Alveolar/Arterial O2 Gradient 610.4 mmHg; Base Excess ABG 0.9 mEq/l (+/-2.0); Carboxyhemoglobin 0.3 % THb (0-2.0); Fractional Inspired Oxygen 100 %; Methemoglobin ABG 0.1 %THb (0-1.5); Oxygen Content ABG 12.6 %vol (16.0-22.0); Oxygen Saturation ABG 90.2 % (95.0-100.0); Oxyhemoglobin 90.2 % THb (90.0-100.0); PCO2 ABG 43.9 mmHg (35.0-45.0); PO2 ABG 58.7 mmHg (80.0-100.0); PO2 FiO2 Ratio Arterial Blood 0.59 %; Reduced Hemoglobin 9.4 %THb (0-5.0); Total Hemoglobin 9.9 g/dL (12.0-18.0); pH ABG 7.391 (7.350-7.450)
[2024-01-21 05:30] LABS: Device CPAP; Modified Allen's Test Pass; Site Drawn RIGHT RADIAL
[2024-01-21 05:31] LABS: CPAP 10 cmH2O
[2024-01-21] MEDS: LEVOTHYROXINE SODIUM 112 MCG TABLET PO (06:27)
[2024-01-21 06:32] LABS: Hematocrit 29.1 % (37.0-47.0); Hemoglobin 9.7 g/dL (12.0-15.0); Mean Corpuscular HGB Conc 33.3 g/dl (32-36); Mean Corpuscular Hemoglobin 31.9 pg (26-34); Mean Corpuscular Volume 95.7 fl (80-100); Mean Platelet Volume 11.4 fl (7.4-10.4); Platelet Count Result 198 k/mm3 (150-375); Red Blood Count 3.04 M/mm3 (4.2-5.4); Red Cell Distribution Width 14.5 % (11.5-14.5); White Blood Count 20.1 K/mm3 (4.5-10.0)
[2024-01-21 06:43] LABS: Partial Thromboplastin Time 70.5 Seconds (22.3-36.8)
[2024-01-21 07:02] LABS: Alanine Aminotransferase 19 U/L (6-35); Albumin Level 3.1 g/dL (3.5-5.1); Alkaline Phosphatase 96 U/L (38-126); Anion Gap 10 mmol/L (4-12); Aspartate Amino Transferase 54 U/L (14-36); Bilirubin,Total 1.1 mg/dL (0.2-1.3); Blood Urea Nitrogen 24 mg/dL (7-17); Calcium 8.1 mg/dL (8.4-10.2); Carbon Dioxide 29 mmol/L (22-30); Chloride 101 mmol/L (98-107); Estimated CRCL calculation 45 ml/min; Estimated Glomerular Filt Rate > 60; Glucose 230 mg/dL (65-110); Magnesium 1.7 mg/dL (1.6-2.3); Potassium 3.2 mmol/L (3.4-5.0); Sodium 140 mmol/L (137-145)
[2024-01-21 07:35] LABS: Glucose Point of Care 235 mg/dl (65-105)
[2024-01-21] MEDS: SUCCINYLCHOLINE CHLORIDE 20 MG/ML 10 ML VIAL 100 MG IV PUSH (08:07)
[2024-01-21] MEDS: ETOMIDATE 20 MG/10 ML AMPUL IV PUSH (08:07)
[2024-01-21] MEDS: MIDAZOLAM HCL (*CRX) 10 MG/2 ML VIAL 4 MG IV PUSH ×2 (08:09→08:13)
[2024-01-21] MEDS: FENTANYL 2,500MCG/NS250ML(*CRX 2,500 MCG/250 ML BAG 10 MCG IV CONT (08:11)
[2024-01-21] MEDS: ROCURONIUM BROMIDE 50 MG/5 ML VIAL IV PUSH (08:12)
[2024-01-21] MEDS: MIDAZOLAM 100MG/NS 100ML(*CRX) 100 MG/100 ML BAG IV CONT (08:12)
[2024-01-21] MEDS: LACTATED RINGERS 1,000 ML 999 ML IV CONT (08:17)
[2024-01-21] MEDS: CISATRACURIUM BESYLATE 20 MG/10 ML VIAL 10.8 MG IV PUSH (08:40)
[2024-01-21] MEDS: CISATRACURIUM BESYLATE 200 MG in DEXTROSE 5% 80 ML 6.48 ML IV CONT (08:40)
[2024-01-21 09:01] LABS: Alveolar/Arterial O2 Gradient 553.9 mmHg; Base Excess ABG -2.6 mEq/l (+/-2.0); Fractional Inspired Oxygen 100 %; HCO3 ABG 26.9 mEq/l (22.0-26.0); Methemoglobin ABG 0.2 %THb (0-1.5); Oxygen Content ABG 14.1 %vol (16.0-22.0); Oxygen Saturation ABG 93.3 % (95.0-100.0); Oxyhemoglobin 93.2 % THb (90.0-100.0); PO2 FiO2 Ratio Arterial Blood 0.85 %; Reduced Hemoglobin 6.6 %THb (0-5.0); Total Hemoglobin 10.7 g/dL (12.0-18.0)
--- NOTE | 2024-01-21 09:01 | WPDINTPN ---
Progress Note: A&P Assessment and Plan (1) Acute respiratory failure: Code(s): J96.00 - Acute respiratory failure, unspecified whether with hypoxia or hypercapnia Status: Acute Assessment and Plan: Acute Respiratory failure secondary to pneumonia and PE Chest x-ray showed diffuse bilateral infiltrates suggestive of progressive ARDS. Patient is CPAP dependent 100% FiO2. Forty of Lasix given IV last night without any significant improvement. Patient does not have any edema on lower extremity suggestive of heart failure. Echo reviewed. 01/20 patient intubated for discussion with the patient and her daughter. ABG reviewed and low tidal volume ventilation. PEEP set at 12 tidal volume at 300 mL. FiO2 is 100%. Increase respiratory rate to 26 Post intubation patient was coughing and gagging leading to desaturation hence was given rocuronium. I will start patient on Nimbex infusion along with sedation at this time. Will plan to place patient in prone position for next 16 hours as tolerated. Continue Bronchodilators Treatment of pneumonia and PE as above Chest x-ray reviewed (2) Septic shock: Code(s): A41.9 - Sepsis, unspecified organism; R65.21 - Severe sepsis with septic shock Status: Acute Assessment and Plan: 01/17: Patient presented with hypotension, elevated lactic acid levels, fevers, cough, hypoxia -received 30 mL/kg IV fluids -started on Levophed via femoral central line - Off IV fluids vasopressors now -continue azithromycin and ceftriaxone (01/17) -01/17: Blood cultures have been obtained and pending (3) Community acquired pneumonia: Qualifiers: Laterality: left Lung location: lower lobe of lung Qualified Code(s): J18.9 - Pneumonia, unspecified organism Code(s): J18.9 - Pneumonia, unspecified organism Status: Acute Assessment and Plan: Patient with community-acquired pneumonia -negative for RSV, SARS-CoV-2 a and influenza -continue antibiotics as above (4) Diabetes: Code(s): E11.9 - Type 2 diabetes mellitus without complications Status: Acute Assessment and Plan: Continue high-dose sliding scale insulin with Q 4 Accu-Cheks (5) Acute kidney injury: Code(s): N17.9 - Acute kidney failure, unspecified Status: Acute Assessment and Plan: Acute kidney injury likely related to hypotension, septic shock -adequately fluid-resuscitated - Off IV fluids now -urine output has been adequate, creatinine has normalized -continue to monitor urine output, electrolytes and renal function (6) Tobacco use: Code(s): Z72.0 - Tobacco use Status: Acute Assessment and Plan: Counseled patient on cessation of tobacco use (7) Pulmonary embolism: Code(s): I26.99 - Other pulmonary embolism without acute cor pulmonale Status: Acute Assessment and Plan: Continue heparin infusion small PE Venous Dopplers negative 01/17: CT chest abdomen and pelvis IMPRESSION: Nonocclusive acute subsegmental pulmonary embolus in the left lower lobe. Very small clot burden. No evidence of right heart strain. Left lower lobe pneumonia. Mild hepatomegaly. Possible cystitis. Otherwise, no acute abdominopelvic process detected. Echo Summary 1. Left ventricular systolic function is normal, estimated at 55-60%. 2. There is mildly increased left ventricular wall thickness. 3. The left ventricular diastolic function is grade I diastolic dysfunction. 4. There is trace mitral valve regurgitation. 5. There is trace tricuspid valve regurgitation. 6. No pulmonary hypertension, estimated pulmonary arterial systolic pressure is 41 mmHg. 7. Right ventricular systolic function is normal. 8. Right ventricular chamber dimension is normal. Plan DVT prophylaxis: Heparin infusion Stress ulcer prophylaxis: Protonix IV q.12 hours Nutrition: Will start tube feeding today Code Status: I spoke to patient prior to intubation about cold and goals of care. She stated that she would like 1-2 rounds of resuscitation in case of cardiac arrest to see if she can be brought back but does not want prolonged resuscitation efforts. She also states that if she is unable to come off the ventilator in 2 weeks time she would not want a feeding tube and tracheostomy for long-term mechanical ventilation. Patient's daughter was at bedside and in agreement with patient's wishes Critical Care Time Spent: 60 minutes Due to a high probability of clinically significant, life threatening deterioration, the patient required my highest level of preparedness to intervene emergently and I personally spent this critical care time directly and personally managing the patient. This critical care time included obtaining a history; examining the patient; pulse oximetry; ordering and review of studies; arranging urgent treatment with development of a management plan; evaluation of patient's response to treatment; frequent reassessment; and discussions with other providers. It was exclusive of separately billable procedures and treating other patients and teaching time. Please see Assessment and Plan section and the rest of the note for further information on patient assessment and treatment This dictation may have been done utilizing a voice recognition system. Attempts have been made to correct errors. However, there may be uncorrected grammatical, spelling, and recognitions errors present. Subjective Date/time seen: 01/21/24 Yesterday patient had increased oxygen requirement and patient was placed back on CPAP. Despite patient on CPAP FiO2 had to be increased and the increased over to 100% overnight. This morning patient states that she feels okay but on exam patient appeared in respiratory distress with mild tachypnea and use of accessory muscles. She was constantly coughing. Respiratory rate was in high 20s. I spoke to patient and her daughter at bedside and explained the worsening respiratory failure I discussed option of intubation and mechanical ventilation. She and her daughter agreed and patient was intubated and placed on mechanical ventilation. Good urine output in response to Lasix. Afebrile for the most part Review of Systems Review of Systems: All systems reviewed & are unremarkable except as noted in HPI and below Exam Narrative: General: Pleasant female, on BiPAP, in mild acute distress at this time HEENT:? Pupils equal and reactive, sclerae sclera, BiPAP mask in place Neck:? Supple Respiratory:? Coarse breath sounds bilaterally L > R. decreased breath sounds on left side, no wheezing, adequate air entry otherwise, mild tachypnea and use of accessory muscles Cardiac:? S1-S2 was normal, regular rate and rhythm Abdomen:? Soft, distended, periumbilical tenderness to palpation, normoactive bowel sounds Extremities:? No edema, palpable pedal pulses Neuro:? Patient is awake, alert, able to answer questions and follows simple commands in all extremities Skin:? Warm and dry Psych:? Normal mentation and affect Objective Data Vital Signs Vital Signs: Vital Signs - 24 hr 01/20/24 10:00 01/20/24 10:00 01/20/24 11:32 Temperature Pulse Rate 87 87 Respiratory Rate 20 Blood Pressure 135/67 Pulse Oximetry 90 95 Oxygen Delivery High Flow Therapy with Na Oxygen Flow Rate 60 Fraction of Inspired Oxygen 93 01/20/24 11:56 01/20/24 12:00 01/20/24 12:00 Temperature 36.3 C L Pulse Rate 87 81 85 Respiratory Rate 21 H Blood Pressure 125/68 Pulse Oximetry 94 97 Oxygen Delivery High Flow Therapy with Na Oxygen Flow Rate 60 Fraction of Inspired Oxygen 93 01/20/24 13:32 01/20/24 13:40 01/20/24 13:45 Temperature Pulse Rate 82 80 Respiratory Rate 23 H 22 H Blood Pressure Pulse Oximetry 92 93 Oxygen Delivery High Flow Therapy with Na BiPAP Oxygen Flow Rate 60 Fraction of Inspired Oxygen 93 01/20/24 13:51 01/20/24 14:00 01/20/24 14:00 Temperature Pulse Rate 80 80 80 Respiratory Rate 26 H 26 H Blood Pressure 125/62 Pulse Oximetry 91 Oxygen Delivery Oxygen Flow Rate Fraction of Inspired Oxygen 01/20/24 16:00 01/20/24 16:00 01/20/24 16:00 Temperature 36.8 C Pulse Rate 73 73 Respiratory Rate 23 H Blood Pressure 118/67 Pulse Oximetry 91 92 Oxygen Delivery BiPAP Oxygen Flow Rate Fraction of Inspired Oxygen 70 01/20/24 17:27 01/20/24 17:57 01/20/24 18:00 Temperature Pulse Rate 77 83 84 Respiratory Rate 26 H 26 H 27 H Blood Pressure Pulse Oximetry 95 95 95 Oxygen Delivery BiPAP BiPAP CPAP Oxygen Flow Rate Fraction of Inspired Oxygen 01/20/24 18:00 01/20/24 18:00 01/20/24 19:24 Temperature Pulse Rate 84 84 88 Respiratory Rate 22 H 29 H Blood Pressure 141/63 H Pulse Oximetry 95 91 Oxygen Delivery CPAP Oxygen Flow Rate Fraction of Inspired Oxygen 01/20/24 19:24 01/20/24 20:00 01/20/24 20:00 Temperature 36.9 C Pulse Rate 88 93 Respiratory Rate 29 H 26 H Blood Pressure 139/55 L Pulse Oximetry 92 91 Oxygen Delivery CPAP Oxygen Flow Rate 10 Fraction of Inspired Oxygen 100 01/20/24 22:00 01/20/24 20:00 01/20/24 22:00 Temperature Pulse Rate 92 92 104 H Respiratory Rate 30 H Blood Pressure 132/62 Pulse Oximetry 92 Oxygen Delivery Oxygen Flow Rate Fraction of Inspired Oxygen 01/20/24 22:30 01/21/24 01:39 01/21/24 01:39 Temperature Pulse Rate 89 87 86 Respiratory Rate 29 H 29 H 29 H Blood Pressure Pulse Oximetry 91 92 Oxygen Delivery CPAP CPAP Oxygen Flow Rate Fraction of Inspired Oxygen 01/21/24 00:00 01/21/24 00:00 01/21/24 00:00 Temperature 37.8 C H Pulse Rate 89 89 Respiratory Rate 27 H Blood Pressure 130/62 Pulse Oximetry 92 92 Oxygen Delivery CPAP Oxygen Flow Rate 10 Fraction of Inspired Oxygen 100 01/21/24 02:00 01/21/24 02:00 01/21/24 01:45 Temperature Pulse Rate 90 90 82 Respiratory Rate 28 H 29 H Blood Pressure 135/68 Pulse Oximetry 93 Oxygen Delivery Oxygen Flow Rate Fraction of Inspired Oxygen 01/21/24 04:00 01/21/24 04:00 01/21/24 04:30 Temperature 37.3 C Pulse Rate 87 91 Respiratory Rate 29 H 32 H Blood Pressure 137/60 Pulse Oximetry 91 91 91 Oxygen Delivery CPAP CPAP Oxygen Flow Rate 10 Fraction of Inspired Oxygen 100 01/21/24 06:00 01/21/24 04:00 01/21/24 07:21 Temperature Pulse Rate 85 90 86 Respiratory Rate 30 H 27 H Blood Pressure 153/65 H Pulse Oximetry 91 Oxygen Delivery Oxygen Flow Rate Fraction of Inspired Oxygen 01/21/24 06:00 01/21/24 07:21 01/21/24 07:23 Temperature Pulse Rate 86 86 Respiratory Rate 27 H Blood Pressure Pulse Oximetry 95 95 Oxygen Delivery CPAP CPAP Oxygen Flow Rate Fraction of Inspired Oxygen 100 01/21/24 07:31 01/21/24 08:11 01/21/24 08:12 Temperature Pulse Rate 86 105 H 105 H Respiratory Rate 28 H 22 H 22 H Blood Pressure Pulse Oximetry Oxygen Delivery Oxygen Flow Rate Fraction of Inspired Oxygen 01/21/24 08:40 01/21/24 08:00 01/21/24 08:06 Temperature 36.7 C Pulse Rate 113 H 106 H 105 H Respiratory Rate 22 H 21 H Blood Pressure 140/48 L 116/62 Pulse Oximetry 94 93 Oxygen Delivery Mechanical Ventilation Oxygen Flow Rate Fraction of Inspired Oxygen 100 Intake/Output Intake/Output: Intake & Output 01/18/24 01/19/24 01/20/24 01/21/24 23:59 23:59 23:59 23:59 Intake Total 3411.7 3333.6 418.2 264.8 Output Total 2575 2475 700 Balance 3411.7 758.6 -2056.8 -435.2 Meds/Results Medications: Active Medications Generic Name Dose Route Start Last Admin Trade Name Freq PRN Reason Stop Dose Admin Acetaminophen 650 mg 01/20/24 10:08 01/20/24 10:29 Acetaminophen 325 Mg Tablet PO 650 mg Q4H PRN Administration Mild Pain (1-3) or Fever Albuterol/Ipratropium 3 ml 01/19/24 02:00 01/21/24 07:21 Ipratropium 0.5 Mg/Albuterol Sulfate 2.5 Mg Ampul.Neb 3 Ml INHALATION 3 ml Q6HRT EDMOND Administration Aspirin 81 mg 01/19/24 08:00 01/20/24 08:55 Aspirin 81 Mg Chewable Tablet PO 81 mg DAILY@0800 EDMOND Administration Atorvastatin Calcium 40 mg 01/19/24 09:00 01/20/24 08:55 Atorvastatin 40 Mg Tablet PO 40 mg DAILY EDMOND Administration Clopidogrel Bisulfate 75 mg 01/19/24 09:00 01/20/24 08:56 Clopidogrel Bisulfate 75 Mg Tablet PO 75 mg DAILY EDMOND Administration Dextrose 12.5 gm 01/18/24 23:28 Dextrose 50% 25 Gm/50 Ml Syringe IV PUSH PRN PRN Hypoglycemia Protocol Glucagon 1 mg 01/18/24 23:28 Glucagon For Inj 1 Mg Vial IM PRN PRN Hypoglycemia Protocol Glucose 15 gm 01/18/24 23:28 Glucose Oral Gel 15 Gm Of Glucse In 37.5 Gm Tube PO PRN PRN Hypoglycemia Protocol Heparin Sodium (Porcine) 4,500 units 01/18/24 23:25 Heparin Sodium 5,000 Units/Ml Vial IV PUSH PRN PRN aPTT less than 55 seconds Heparin Sodium (Porcine) 2,500 units 01/18/24 23:25 Heparin Sodium 5,000 Units/Ml Vial IV PUSH PRN PRN aPTT 55 - 70 seconds Ceftriaxone Sodium 1 gm in 50 mls @ 100 mls/hr 01/19/24 17:00 01/20/24 17:16 Rocephin 1 Gm/Ns 50 Ml IVPB 100 mls/hr Q24H EDMOND Administration Azithromycin 500 mg in 250 mls @ 250 mls/hr 01/19/24 18:00 01/20/24 17:17 Zithromax IVPB 250 mls/hr Q24H EDMOND Administration Heparin Sodium/Dextrose 25,000 units in 250 mls @ 10 mls/hr 01/18/24 23:25 01/21/24 06:59 Heparin Sodium/D5w 100 Units/Ml IV CONT 1,000 units/hr .Q24H EDMOND 10 mls/hr Titration Protocol 1,000 UNITS/HR Dextrose 1,000 mls @ 100 mls/hr 01/18/24 23:28 Dextrose 5% 1,000 Ml IVPB PRN PRN Hypoglycemia Protocol Potassium Chloride 100 mls @ 25 mls/hr 01/21/24 07:30 Kcl 40 Meq/Water 100 Ml IVPB 01/21/24 11:29 ONCE ONE Fentanyl Citrate 2,500 mcg in 250 mls @ 10 mls/hr 01/21/24 07:40 01/21/24 08:11 Fentanyl 2,500 Mcg/Ns 250 Ml IV CONT 100 mcg/hr .Q25H EDMOND 10 mls/hr Administration Protocol 100 MCG/HR Midazolam HCl 100 mg in 100 mls @ 4 mls/hr 01/21/24 07:40 01/21/24 08:12 Versed 100 Mg/Ns 100 Ml IV CONT 4 mg/hr .Q25H EDMOND 4 mls/hr Administration Protocol 4 MG/HR Lactated Ringer's 1,000 mls @ 999 mls/hr 01/21/24 08:14 01/21/24 08:17 Lr - Lactated Ringers Iv IV CONT 01/21/24 09:14 999 mls/hr .Q1H1M STA Administration Cisatracurium Besylate 200 mg/ 100 mls @ 6.48 mls/hr 01/21/24 08:30 01/21/24 08:40 Dextrose IV CONT 3 mcg/kg/min .[id number] EDMOND 6.48 mls/hr Administration Protocol 3 MCG/KG/MIN Insulin Aspart 4 - 8 units 01/19/24 12:00 01/21/24 04:22 Insulin Aspart (*Bkc) 100 Units/Ml SUB-Q 4 units Q4H EDMOND Administration Protocol Insulin Glargine 15 units 01/21/24 09:00 Insulin Glargine (*Bkc) 100 Units/Ml SUB-Q QAM EDMOND Levothyroxine Sodium 112 mcg 01/19/24 06:30 01/21/24 06:27 Levothyroxine Sodium 112 Mcg Tablet PO 112 mcg DAILY@0630 EDMOND Administration Midazolam HCl 2 mg 01/21/24 07:40 Midazolam Hcl (*Crx) 2 Mg/2 Ml Vial IV PUSH Q5M PRN ventilator asynchrony Midazolam HCl 4 mg 01/21/24 08:04 01/21/24 08:13 Midazolam Hcl (*Crx) 10 Mg/2 Ml Vial IV PUSH 4 mg PRN PRN Administration Sedation Midazolam HCl 4 mg 01/21/24 08:09 01/21/24 08:09 Midazolam Hcl (*Crx) 10 Mg/2 Ml Vial IV PUSH 4 mg PRN PRN Administration Sedation Morphine Sulfate 1 mg 01/19/24 10:32 01/20/24 20:04 Morphine Sulfate (*Crx) 2 Mg/Ml Inj IV PUSH 1 mg Q4H PRN Administration Pain Rated 6 or Greater Multi-Ingred Cream/Lotion/Oil/Oint 1 applic 01/21/24 09:00 Mineral Oil/White Petrolatum Ointment EACH EYE Q12HR EDMOND Ondansetron HCl 4 mg 01/18/24 22:13 Ondansetron Inj 4 Mg/2 Ml Vial IV PUSH Q4H PRN Nausea Pantoprazole Sodium 40 mg 01/19/24 09:00 01/20/24 20:03 Pantoprazole Sodium Iv 40 Mg Vial IV PUSH 40 mg Q12HR EDMOND Administration Sertraline HCl 100 mg 01/19/24 09:00 01/20/24 08:56 Sertraline Hcl 50 Mg Tablet PO 100 mg DAILY EDMOND Administration Radiology Results: ITS Impressions Chest/Abdomen/Pelvis CTA 01/18/24 18:30 IMPRESSION: Nonocclusive acute subsegmental pulmonary embolus in the left lower lobe. Very small clot burden. No evidence of right heart strain. Left lower lobe pneumonia. Mild hepatomegaly. Possible cystitis. Otherwise, no acute abdominopelvic process detected. Head CT 01/19/24 05:47 Impression: No intracranial hemorrhage, mass, or acute infarct. Atrophy and chronic white matter changes, as above. Venous Doppler Study 01/19/24 15:06 IMPRESSION: Negative bilateral lower extremity venous US. No deep vein thrombosis. Chest X-Ray 01/21/24 08:22 IMPRESSION: Bilateral alveolar and interstitial opacification suggestive of pneumonia versus pulmonary edema versus ARDS. Abdomen X-Ray 01/21/24 08:25 IMPRESSION: Nasogastric tube projects over the upper abdomen. Labs Labs: Laboratory Results - last 24 hr 01/20/24 01/20/24 01/20/24 12:33 16:14 18:01 WBC RBC Hgb Hct MCV MCH MCHC RDW Plt Count MPV APTT Puncture Site Left radial ABG pH 7.354 ABG pCO2 41.6 ABG pO2 74.3 L ABG PO2/FiO2 Ratio 0.74 ABG HCO3 22.7 ABG O2 Saturation 94.4 L ABG O2 Content 15.1 L ABG Base Excess -2.7 A-a Gradient 597.1 Oxyhemoglobin 93.6 Carboxyhemoglobin Methemoglobin Reduced Hemoglobin Total Hemoglobin 11.4 L O2 Delivery Device Non-invasive vent O2 Liters/Min Not Reportable Vent Rate 14 FiO2 100 Expiratory Pressure 6 Inspiratory Pressure 12 CPAP Sodium Potassium Chloride Carbon Dioxide Anion Gap BUN Creatinine Estim Creat Clear Calc Estimated GFR Glucose POC Capillary Glucose 246 H 183 H Calcium Magnesium Total Bilirubin AST ALT Alkaline Phosphatase Total Protein Albumin 01/20/24 01/21/24 01/21/24 19:59 00:02 04:19 WBC RBC Hgb Hct MCV MCH MCHC RDW Plt Count MPV APTT Puncture Site ABG pH ABG pCO2 ABG pO2 ABG PO2/FiO2 Ratio ABG HCO3 ABG O2 Saturation ABG O2 Content ABG Base Excess A-a Gradient Oxyhemoglobin Carboxyhemoglobin Methemoglobin Reduced Hemoglobin Total Hemoglobin O2 Delivery Device O2 Liters/Min Vent Rate FiO2 Expiratory Pressure Inspiratory Pressure CPAP Sodium Potassium Chloride Carbon Dioxide Anion Gap BUN Creatinine Estim Creat Clear Calc Estimated GFR Glucose POC Capillary Glucose 211 H 202 H 226 H Calcium Magnesium Total Bilirubin AST ALT Alkaline Phosphatase Total Protein Albumin 01/21/24 01/21/24 01/21/24 05:05 06:08 07:30 WBC 20.1 H RBC 3.04 L Hgb 9.7 L Hct 29.1 L MCV 95.7 MCH 31.9 MCHC 33.3 RDW 14.5 Plt Count 198 MPV 11.4 H APTT 70.5 H Puncture Site Right radial ABG pH 7.391 ABG pCO2 43.9 ABG pO2 58.7 L ABG PO2/FiO2 Ratio 0.59 ABG HCO3 26.0 ABG O2 Saturation 90.2 L ABG O2 Content 12.6 L ABG Base Excess 0.9 A-a Gradient 610.4 Oxyhemoglobin 90.2 Carboxyhemoglobin 0.3 Methemoglobin 0.1 Reduced Hemoglobin 9.4 H Total Hemoglobin 9.9 L O2 Delivery Device Cpap O2 Liters/Min Not Reportable Vent Rate FiO2 100 Expiratory Pressure Inspiratory Pressure CPAP 10 Sodium 140 Potassium 3.2 L Chloride 101 Carbon Dioxide 29 Anion Gap 10 BUN 24 H Creatinine 0.90 Estim Creat Clear Calc 45 Estimated GFR > 60 Glucose 230 H POC Capillary Glucose 235 H Calcium 8.1 L Magnesium 1.7 Total Bilirubin 1.1 AST 54 H ALT 19 Alkaline Phosphatase 96 Total Protein 7.0 Albumin 3.1 L Quality VTE Prophylaxis VTE prophylaxis: pharmacologic ordered (Heparin GGT per protocol)
[2024-01-21 09:02] LABS: Device VENTILATOR; Modified Allen's Test Pass; PCO2 ABG 74.1 mmHg (35.0-45.0); Site Drawn RIGHT RADIAL; pH ABG 7.177 (7.350-7.450)
--- NOTE | 2024-01-21 09:02 | WPDPROCEDUR ---
Procedures Intubation Intubation Date: 01/21/24 Intubation Time: 08:15 Consent: Sent was obtained from patient prior to intubation after explanation of procedure and its risks and benefits A pre-procedural Time-Out was completed immediately before starting the procedure and confirmed: Patient Identification, Site, Procedure, Patient Position and the Availability of Requisite Equipment: Yes Sedative: etomidate Mg given: 20 Paralytic: succinylcholine Mg given: 100 Laryngoscope: fiber optic video scope Assist device used: fiber optic device ET tube size: cuffed Tube secured depth (cm): 23 Tube secured location: lips Tube placement confirmation: visualized tube passing through cords, equal breath sounds bilaterally, no breath sounds over epigastrium and confirmation by capnometry Patient tolerated procedure: well Intubation complications: none
[2024-01-21 09:03] LABS: Arterial Blood Gas PEEP 12 cmH2O; Arterial Blood Gas Tidal Volume 300 ml; Arterial Blood Gas Vent Mode CMV; Arterial Blood Gas Ventilator rate 22 /MIN
[2024-01-21] MEDS: INSULIN GLARGINE (*BKC) 100 UNITS/ML 15 UNITS SUB-Q (10:22)
[2024-01-21] MEDS: KCL 40 MEQ/WATER 100 ML 100 ML 25 ML IVPB (10:31)
[2024-01-21] MEDS: SODIUM BICARBONATE 8.4% 50 MEQ/50 ML SYRINGE IV PUSH (10:32)
[2024-01-21] MEDS: PANTOPRAZOLE SODIUM IV 40 MG VIAL IV PUSH ×2 (10:32→20:26)
[2024-01-21] MEDS: SERTRALINE HCL 50 MG TABLET 100 MG PO (10:42)
[2024-01-21] MEDS: CLOPIDOGREL BISULFATE 75 MG TABLET PO (10:43)
[2024-01-21] MEDS: ATORVASTATIN 40 MG TABLET PO (10:43)
[2024-01-21] MEDS: POTASSIUM CHLORIDE 20 MEQ PACKET (FOR LIQUID) 40 MEQ PO (10:43)
[2024-01-21] MEDS: ASPIRIN 81 MG CHEWABLE TABLET PO (10:43)
[2024-01-21] MEDS: MINERAL OIL/WHITE PETROLATUM OINTMENT 1 APPLIC EACH EYE ×2 (10:44→20:26)
[2024-01-21 11:53] LABS: Alveolar/Arterial O2 Gradient 519.2 mmHg; Base Excess ABG -1.7 mEq/l (+/-2.0); Fractional Inspired Oxygen 100 %; HCO3 ABG 29.3 mEq/l (22.0-26.0); Oxygen Content ABG 14.4 %vol (16.0-22.0); PO2 ABG 101.2 mmHg (80.0-100.0); PO2 FiO2 Ratio Arterial Blood 1.01 %; Total Hemoglobin 10.7 g/dL (12.0-18.0)
[2024-01-21 11:54] LABS: pH ABG 7.118 (7.350-7.450)
[2024-01-21 11:55] LABS: Arterial Blood Gas PEEP 12 cmH2O; Arterial Blood Gas Tidal Volume 300 ml; Arterial Blood Gas Vent Mode CMV; Arterial Blood Gas Ventilator rate 26 /MIN; Device VENTILATOR; Modified Allen's Test Pass; PCO2 ABG 92.6 mmHg (35.0-45.0); Site Drawn LEFT RADIAL
[2024-01-21 12:50] LABS: Glucose Point of Care 247 mg/dl (65-105)
[2024-01-21] MEDS: HYDROCORTISONE SODIUM SUCCINATE 100 MG/2 ML VIAL 50 MG IV PUSH ×2 (12:58→17:11)
[2024-01-21] MEDS: VANCOMYCIN 1,750 MG/NS 500 ML 1,750 MG/500 ML BAG 250 MG IVPB (12:59)
[2024-01-21 16:01] LABS: Alveolar/Arterial O2 Gradient 557.8 mmHg; Base Excess ABG 0.5 mEq/l (+/-2.0); Oxygen Content ABG 14.1 %vol (16.0-22.0); Oxygen Saturation ABG 91.7 % (95.0-100.0); Oxyhemoglobin 92.4 % THb (90.0-100.0); PO2 ABG 76.9 mmHg (80.0-100.0); PO2 FiO2 Ratio Arterial Blood 0.77 %; Total Hemoglobin 10.8 g/dL (12.0-18.0)
[2024-01-21 16:37] LABS: Arterial Blood Gas Vent Mode CMV; Arterial Blood Gas Ventilator rate 26 /MIN; Device VENTILATOR; Modified Allen's Test Pass; PCO2 ABG 78.3 mmHg (35.0-45.0); Site Drawn RIGHT RADIAL; pH ABG 7.201 (7.350-7.450)
[2024-01-21 16:38] LABS: Arterial Blood Gas PEEP 12 cmH2O; Arterial Blood Gas Tidal Volume 360 ml; Fractional Inspired Oxygen 80 %
[2024-01-21 17:01] LABS: Glucose Point of Care 245 mg/dl (65-105)
[2024-01-21] MEDS: AZITHROMYCIN 500 MG/NS 250 ML 500 MG/250 ML BAG 250 MG IVPB (17:11)
[2024-01-21] MEDS: CISATRACURIUM BESYLATE 200 MG in DEXTROSE 5% 80 ML IV CONT (20:33)
[2024-01-21 21:23] LABS: Glucose Point of Care 291 mg/dl (65-105)
[2024-01-22] VITALS (35 sets, daily range): BP systolic 94–121; BP diastolic 50–64; PULSE 79–100; RESP 26–28; TEMP 36.8–38.2; O2SAT 90–98
[2024-01-22] MEDS: HYDROCORTISONE SODIUM SUCCINATE 100 MG/2 ML VIAL 50 MG IV PUSH ×5 (00:36→23:31)
[2024-01-22] MEDS: INSULIN ASPART (*BKC) 100 UNITS/ML SUB-Q ×7 (00:37→23:32)
[2024-01-22 00:45] LABS: Glucose Point of Care 268 mg/dl (65-105)
[2024-01-22] MEDS: IPRATROPIUM 0.5 MG/ALBUTEROL SULFATE 2.5 MG AMPUL.NEB 3 ML INHALATION ×4 (02:01→20:10)
[2024-01-22 05:00] LABS: Alveolar/Arterial O2 Gradient 333.3 mmHg; Base Excess ABG -2.3 mEq/l (+/-2.0); Carboxyhemoglobin 0.3 % THb (0-2.0); Fractional Inspired Oxygen 70 %; HCO3 ABG 27.7 mEq/l (22.0-26.0); Methemoglobin ABG 0.1 %THb (0-1.5); Oxygen Content ABG 12.9 %vol (16.0-22.0); Oxygen Saturation ABG 90.2 % (95.0-100.0); Oxyhemoglobin 92.6 % THb (90.0-100.0); PO2 ABG 76.6 mmHg (80.0-100.0); PO2 FiO2 Ratio Arterial Blood 1.09 %; Total Hemoglobin 9.8 g/dL (12.0-18.0)
[2024-01-22 05:03] LABS: pH ABG 7.142 (7.350-7.450)
[2024-01-22 05:04] LABS: Arterial Blood Gas PEEP 12 cmH2O; Arterial Blood Gas Tidal Volume 360 ml; Arterial Blood Gas Vent Mode CMV; Arterial Blood Gas Ventilator rate 26 /MIN; Device VENTILATOR; Modified Allen's Test Pass; Site Drawn RIGHT RADIAL
[2024-01-22] MEDS: FENTANYL 2,500MCG/NS250ML(*CRX 2,500 MCG/250 ML BAG 12.5 MCG IV CONT (05:07)
[2024-01-22] MEDS: MIDAZOLAM 100MG/NS 100ML(*CRX) 100 MG/100 ML BAG IV CONT (05:10)
[2024-01-22] MEDS: HEPARIN SOD/D5W 100 UNITS/ML 25,000 UNITS/250 ML BAG 10 UNITS IV CONT (05:11)
[2024-01-22] MEDS: LEVOTHYROXINE SODIUM 112 MCG TABLET PO (05:13)
[2024-01-22 05:23] LABS: Glucose Point of Care 319 mg/dl (65-105)
[2024-01-22 05:25] LABS: Hematocrit 29.5 % (37.0-47.0); Mean Corpuscular HGB Conc 30.5 g/dl (32-36); Mean Corpuscular Hemoglobin 31.5 pg (26-34); Mean Corpuscular Volume 103.1 fl (80-100); Mean Platelet Volume 11.3 fl (7.4-10.4); Platelet Count Result 214 k/mm3 (150-375); Red Blood Count 2.86 M/mm3 (4.2-5.4); Red Cell Distribution Width 15.3 % (11.5-14.5); White Blood Count 23.7 K/mm3 (4.5-10.0)
[2024-01-22 05:40] LABS: Partial Thromboplastin Time 126.3 Seconds (22.3-36.8)
[2024-01-22 06:18] LABS: Alanine Aminotransferase 26 U/L (6-35); Albumin Level 3.1 g/dL (3.5-5.1); Alkaline Phosphatase 110 U/L (38-126); Anion Gap 7 mmol/L (4-12); Aspartate Amino Transferase 71 U/L (14-36); Bilirubin,Total 0.6 mg/dL (0.2-1.3); Blood Urea Nitrogen 36 mg/dL (7-17); Calcium 7.9 mg/dL (8.4-10.2); Carbon Dioxide 32 mmol/L (22-30); Chloride 104 mmol/L (98-107); Estimated CRCL calculation 32 ml/min; Estimated Glomerular Filt Rate 40; Glucose 332 mg/dL (65-110); Magnesium 2.2 mg/dL (1.6-2.3); Potassium 5.1 mmol/L (3.4-5.0); Sodium 143 mmol/L (137-145)
[2024-01-22] MEDS: SODIUM BICARBONATE 8.4% 50 MEQ/50 ML SYRINGE IV PUSH (06:35)
[2024-01-22] MEDS: SODIUM BICARBONATE TAB 650 MG TABLET PO ×2 (08:21→16:06)
[2024-01-22] MEDS: ASPIRIN 81 MG CHEWABLE TABLET PO (08:21)
[2024-01-22] MEDS: CLOPIDOGREL BISULFATE 75 MG TABLET PO (08:21)
[2024-01-22] MEDS: ATORVASTATIN 40 MG TABLET PO (08:21)
[2024-01-22] MEDS: SERTRALINE HCL 50 MG TABLET 100 MG PO (08:21)
[2024-01-22] MEDS: PANTOPRAZOLE SODIUM IV 40 MG VIAL IV PUSH ×2 (08:24→20:25)
[2024-01-22] MEDS: MINERAL OIL/WHITE PETROLATUM OINTMENT 1 APPLIC EACH EYE ×2 (08:24→20:25)
[2024-01-22 08:30] LABS: Glucose Point of Care 318 mg/dl (65-105)
[2024-01-22] MEDS: INSULIN HUMAN REGULAR (*BKC) 100 UNITS/ML 10 UNITS IV PUSH (08:35)
[2024-01-22] MEDS: INSULIN GLARGINE (*BKC) 100 UNITS/ML 35 UNITS SUB-Q (08:38)
--- NOTE | 2024-01-22 09:23 | P.PNINT_ITS ---
Progress Note: A&P Assessment and Plan (1) Acute respiratory failure: Code(s): J96.00 - Acute respiratory failure, unspecified whether with hypoxia or hypercapnia Status: Acute Assessment and Plan: Acute Respiratory failure secondary to pneumonia and PE Chest x-ray showed diffuse bilateral infiltrates suggestive of progressive ARDS. Patient is CPAP dependent 100% FiO2. Forty of Lasix given IV last night without any significant improvement. Patient does not have any edema on lower extremity suggestive of heart failure. Echo reviewed. 01/20 patient intubated for discussion with the patient and her daughter. ABG reviewed and low tidal volume ventilation. PEEP set at 12 tidal volume at 300 mL. FiO2 is 100%. Increase respiratory rate to 26 Post intubation patient was coughing and gagging leading to desaturation hence was given rocuronium. Patient was started on Nimbex infusion along with sedation at this time. Patient was placed in prone position 01/21 patient was switched to supine position around 2:00 a.m.. She is a 70% FiO2 and 12 of PEEP Continue sedation and chemical paralysis ABG reviewed and rate increased to 28 Low tidal volume ventilation and permissive hypercapnia and permissive respiratory acidosis Will obtain CT chest today. May need to prone her again later today depending on how she does Continue Bronchodilators Treatment of pneumonia and PE as above Chest x-ray reviewed Patient started on steroids due to severity of pneumonia and ARDS (2) Septic shock: Code(s): A41.9 - Sepsis, unspecified organism; R65.21 - Severe sepsis with septic shock Status: Acute Assessment and Plan: 01/17: Patient presented with hypotension, elevated lactic acid levels, fevers, cough, hypoxia -received 30 mL/kg IV fluids -started on Levophed via femoral central line - Off IV fluids vasopressors now -continue azithromycin and ceftriaxone (01/17) -01/17: Blood cultures have been obtained and negative till now (3) Community acquired pneumonia: Qualifiers: Laterality: left Lung location: lower lobe of lung Qualified Code(s): J18.9 - Pneumonia, unspecified organism Code(s): J18.9 - Pneumonia, unspecified organism Status: Acute Assessment and Plan: Patient with community-acquired pneumonia -negative for RSV, SARS-CoV-2 a and influenza -continue antibiotics as above (4) Diabetes: Code(s): E11.9 - Type 2 diabetes mellitus without complications Status: Acute Assessment and Plan: Continue high-dose sliding scale insulin with Q 4 Accu-Cheks I will add Lantus (5) Acute kidney injury: Code(s): N17.9 - Acute kidney failure, unspecified Status: Acute Assessment and Plan: Acute kidney injury likely related to hypotension, septic shock -adequately fluid-resuscitated - Off IV fluids now -urine output has been adequate, creatinine had normalized initially but now back up to 1.3 -at 25% albumin. Will avoid liberal fluids due to patient's respiratory status. Patient is positive her I/O balance -continue to monitor urine output, electrolytes and renal function (6) Pulmonary embolism: Code(s): I26.99 - Other pulmonary embolism without acute cor pulmonale Status: Acute Assessment and Plan: Continue heparin infusion small PE Venous Dopplers negative 01/17: CT chest abdomen and pelvis IMPRESSION: Nonocclusive acute subsegmental pulmonary embolus in the left lower lobe. Very small clot burden. No evidence of right heart strain. Left lower lobe pneumonia. Mild hepatomegaly. Possible cystitis. Otherwise, no acute abdominopelvic process detected. Echo Summary 1. Left ventricular systolic function is normal, estimated at 55-60%. 2. There is mildly increased left ventricular wall thickness. 3. The left ventricular diastolic function is grade I diastolic dysfunction. 4. There is trace mitral valve regurgitation. 5. There is trace tricuspid valve regurgitation. 6. No pulmonary hypertension, estimated pulmonary arterial systolic pressure is 41 mmHg. 7. Right ventricular systolic function is normal. 8. Right ventricular chamber dimension is normal. (7) Electrolyte abnormality: Code(s): E87.8 - Other disorders of electrolyte and fluid balance, not elsewhere classified Status: Acute Assessment and Plan: Mild hyperkalemia secondary to acidosis and hyperglycemia, I will give patient insulin, bicarb and Lokelma. Repeat BMP ordered. Plan DVT prophylaxis: Heparin infusion Stress ulcer prophylaxis: Protonix IV q.12 hours Nutrition:. Continue tube feeds. Will plan to advance to goal today. Code Status: 01/20 I spoke to patient prior to intubation about cold and goals of care. She stated that she would like 1-2 rounds of resuscitation in case of cardiac arrest to see if she can be brought back but does not want prolonged resuscitation efforts. She also states that if she is unable to come off the ventilator in 2 weeks time she would not want a feeding tube and tracheostomy for long-term mechanical ventilation. Patient's daughter was at bedside and in agreement with patient's wishes Critical Care Time Spent: 45 minutes Due to a high probability of clinically significant, life threatening deterior ation, the patient required my highest level of preparedness to intervene emergently and I personally spent this critical care time directly and personally managing the patient. This critical care time included obtaining a history; examining the patient; pulse oximetry; ordering and review of studies; arranging urgent treatment with development of a management plan; evaluation of patient's response to treatment; frequent reassessment; and discussions with other providers. It was exclusive of separately billable procedures and treating other patients and teaching time. Please see Assessment and Plan section and the rest of the note for further information on patient assessment and treatment This dictation may have been done utilizing a voice recognition system. Attempts have been made to correct errors. However, there may be uncorrected grammatical, spelling, and recognitions errors present. Subjective Date/time seen: 01/22/24 Overnight events reviewed. Afebrile Continues to be on mechanical ventilation. Patient was placed in prone position overnight and was switched to supine this morning around 2:00 a.m.. She is on 70% FiO2 and 12 of PEEP Continues to be on vasopressors Continues to be sedated with fentanyl Versed and is paralyzed with Nimbex infusion On tube feeds at 20 mL/hour. Acceptable urine output. Other Vitals acceptable Review of Systems Review of Systems: All systems reviewed & are unremarkable except as noted in HPI and below Exam Narrative: General: Pleasant female, intubated sedated and chemically paralyzed HEENT:? Pupils equal and reactive, sclerae sclera, ET tube in place Neck:? Supple Respiratory:? Coarse breath sounds bilaterally L > R. wheezing on the left side otherwise, mild tachypnea and use of accessory muscles Cardiac:? S1-S2 was normal, regular rate and rhythm Abdomen:? Soft, distended, periumbilical tenderness to palpation, normoactive bowel sounds Extremities:? No edema, palpable pedal pulses Neuro:? Patient is intubated sedated and chemically paralyzed,, PERRL Skin:? Warm and dry Objective Data Vital Signs Vital Signs: Vital Signs - 24 hr 01/21/24 10:43 01/21/24 11:07 01/21/24 10:00 Temperature Pulse Rate 115 H 113 H 116 H Respiratory Rate 26 H 26 H Blood Pressure 130/62 Pulse Oximetry 96 Oxygen Delivery Mechanical Ventilation Fraction of Inspired Oxygen 100 01/21/24 10:00 01/21/24 11:49 01/21/24 10:00 Temperature Pulse Rate 116 H 112 H 116 H Respiratory Rate 26 H Blood Pressure Pulse Oximetry 96 Oxygen Delivery Mechanical Ventilation Fraction of Inspired Oxygen 100 01/21/24 10:00 01/21/24 12:02 01/21/24 12:00 Temperature 36.6 C Pulse Rate 116 H 113 H 108 H Respiratory Rate 26 H 26 H Blood Pressure 139/64 128/60 Pulse Oximetry 96 95 92 Oxygen Delivery Mechanical Ventilation Fraction of Inspired Oxygen 80 01/21/24 12:40 01/21/24 12:00 01/21/24 12:00 Temperature Pulse Rate 107 H 112 H 112 H Respiratory Rate 26 H 26 H 26 H Blood Pressure 119/61 Pulse Oximetry Oxygen Delivery Fraction of Inspired Oxygen 01/21/24 13:32 01/21/24 12:58 01/21/24 12:58 Temperature Pulse Rate 108 H 105 H 105 H Respiratory Rate 26 H 26 H Blood Pressure Pulse Oximetry 92 Oxygen Delivery Mechanical Ventilation Fraction of Inspired Oxygen 80 01/21/24 13:10 01/21/24 14:00 01/21/24 14:00 Temperature Pulse Rate 106 H 108 H 108 H Respiratory Rate 26 H 26 H 26 H Blood Pressure 113/57 L Pulse Oximetry Oxygen Delivery Fraction of Inspired Oxygen 01/21/24 14:00 01/21/24 12:00 01/21/24 12:00 Temperature Pulse Rate 108 H 111 H Respiratory Rate 26 H Blood Pressure Pulse Oximetry 92 Oxygen Delivery Mechanical Ventilation Fraction of Inspired Oxygen 80 01/21/24 12:00 01/21/24 14:00 01/21/24 14:00 Temperature Pulse Rate 108 H 108 H Respiratory Rate 26 H Blood Pressure 113/57 L Pulse Oximetry 94 Oxygen Delivery Fraction of Inspired Oxygen 80 01/21/24 16:00 01/21/24 16:00 01/21/24 16:00 Temperature Pulse Rate 106 H Respiratory Rate Blood Pressure Pulse Oximetry 94 94 Oxygen Delivery Mechanical Ventilation Mechanical Ventilation Fraction of Inspired Oxygen 80 80 80 01/21/24 16:00 01/21/24 18:00 01/21/24 16:00 Temperature 37.3 C Pulse Rate 106 H 106 H 106 H Respiratory Rate 26 H 26 H Blood Pressure 118/60 112/56 L Pulse Oximetry 94 93 Oxygen Delivery Fraction of Inspired Oxygen 01/21/24 18:00 01/21/24 16:00 01/21/24 18:00 Temperature Pulse Rate 106 H 106 H 106 H Respiratory Rate 26 H 26 H Blood Pressure Pulse Oximetry Oxygen Delivery Fraction of Inspired Oxygen 01/21/24 16:00 01/21/24 18:00 01/21/24 16:00 Temperature Pulse Rate 106 H 106 H 106 H Respiratory Rate 26 H 26 H 26 H Blood Pressure 118/60 112/56 L Pulse Oximetry Oxygen Delivery Fraction of Inspired Oxygen 01/21/24 18:00 01/21/24 20:00 01/21/24 20:00 Temperature Pulse Rate 106 H 99 99 Respiratory Rate 26 H 26 H 26 H Blood Pressure Pulse Oximetry Oxygen Delivery Fraction of Inspired Oxygen 01/21/24 20:00 01/21/24 20:33 01/21/24 20:35 Temperature 36.4 C L Pulse Rate 99 97 96 Respiratory Rate 26 H 26 H 26 H Blood Pressure 105/55 L 99/58 L Pulse Oximetry 95 Oxygen Delivery Fraction of Inspired Oxygen 01/21/24 20:37 01/21/24 20:00 01/21/24 20:00 Temperature Pulse Rate 95 98 Respiratory Rate Blood Pressure Pulse Oximetry 97 Oxygen Delivery Mechanical Ventilation Fraction of Inspired Oxygen 80 80 01/21/24 20:00 01/21/24 22:00 01/21/24 22:00 Temperature Pulse Rate 95 95 Respiratory Rate 26 H Blood Pressure 97/48 L Pulse Oximetry 98 Oxygen Delivery Fraction of Inspired Oxygen 80 01/21/24 22:30 01/21/24 23:04 01/22/24 00:00 Temperature 37.1 C Pulse Rate 94 92 92 Respiratory Rate 26 H 26 H Blood Pressure 103/50 L 105/52 L Pulse Oximetry 97 97 98 Oxygen Delivery Mechanical Ventilation Fraction of Inspired Oxygen 70 01/21/24 22:00 01/22/24 00:00 01/21/24 22:00 Temperature Pulse Rate 95 92 95 Respiratory Rate 26 H 26 H 26 H Blood Pressure Pulse Oximetry Oxygen Delivery Fraction of Inspired Oxygen 01/22/24 00:00 01/22/24 00:00 01/22/24 00:00 Temperature Pulse Rate 92 Respiratory Rate 26 H Blood Pressure Pulse Oximetry Oxygen Delivery Fraction of Inspired Oxygen 70 70 01/22/24 00:00 01/22/24 01:41 01/22/24 02:01 Temperature Pulse Rate 93 90 87 Respiratory Rate 26 H Blood Pressure Pulse Oximetry 98 Oxygen Delivery Mechanical Ventilation Fraction of Inspired Oxygen 70 01/22/24 02:11 01/21/24 20:45 01/22/24 02:00 Temperature Pulse Rate 84 95 87 Respiratory Rate 26 H 26 H Blood Pressure Pulse Oximetry Oxygen Delivery Fraction of Inspired Oxygen 01/22/24 02:00 01/22/24 02:00 01/22/24 02:00 Temperature Pulse Rate 86 86 Respiratory Rate 26 H 26 H Blood Pressure Pulse Oximetry 95 Oxygen Delivery Fraction of Inspired Oxygen 01/22/24 02:10 01/22/24 04:00 01/22/24 04:00 Temperature 36.9 C Pulse Rate 87 93 93 Respiratory Rate 26 H 26 H 26 H Blood Pressure 98/52 L Pulse Oximetry 95 Oxygen Delivery Fraction of Inspired Oxygen 01/22/24 05:07 01/22/24 05:07 01/22/24 05:10 Temperature Pulse Rate 94 94 94 Respiratory Rate 26 H 26 H 26 H Blood Pressure Pulse Oximetry Oxygen Delivery Fraction of Inspired Oxygen 01/22/24 05:10 01/22/24 05:32 01/22/24 04:00 Temperature Pulse Rate 94 100 Respiratory Rate 26 H Blood Pressure Pulse Oximetry 95 Oxygen Delivery Mechanical Ventilation Fraction of Inspired Oxygen 70 70 01/22/24 06:00 01/22/24 06:00 01/22/24 04:00 Temperature Pulse Rate 94 94 Respiratory Rate 26 H 26 H Blood Pressure Pulse Oximetry Oxygen Delivery Fraction of Inspired Oxygen 70 01/22/24 04:00 01/22/24 06:00 01/22/24 04:00 Temperature 36.8 C Pulse Rate 94 94 93 Respiratory Rate 26 H Blood Pressure 101/56 L Pulse Oximetry 94 Oxygen Delivery Fraction of Inspired Oxygen 01/22/24 06:00 01/22/24 07:00 01/22/24 08:17 Temperature 37.0 C 37.1 C Pulse Rate 94 96 94 Respiratory Rate 26 H 26 H Blood Pressure 110/53 L 118/58 L Pulse Oximetry 92 90 94 Oxygen Delivery Mechanical Ventilation Fraction of Inspired Oxygen 70 01/22/24 08:17 01/22/24 08:27 Temperature Pulse Rate 94 91 Respiratory Rate 28 H 28 H Blood Pressure Pulse Oximetry Oxygen Delivery Fraction of Inspired Oxygen Intake/Output Intake/Output: Intake & Output 01/19/24 01/20/24 01/21/24 01/22/24 23:59 23:59 23:59 23:59 Intake Total 3333.6 718.2 2560.8 703.8 Output Total 2575 2475 1450 325 Balance 758.6 -1756.8 1110.8 378.8 Meds/Results Medications: Active Medications Generic Name Dose Route Start Last Admin Trade Name Freq PRN Reason Stop Dose Admin Acetaminophen 650 mg 01/20/24 10:08 01/20/24 10:29 Acetaminophen 325 Mg Tablet PO 650 mg Q4H PRN Administration Mild Pain (1-3) or Fever Albuterol/Ipratropium 3 ml 01/19/24 02:00 01/22/24 08:17 Ipratropium 0.5 Mg/Albuterol Sulfate 2.5 Mg Ampul.Neb 3 Ml INHALATION 3 ml Q6HRT EDMOND Administration Aspirin 81 mg 01/19/24 08:00 01/22/24 08:21 Aspirin 81 Mg Chewable Tablet PO 81 mg DAILY@0800 EDMOND Administration Atorvastatin Calcium 40 mg 01/19/24 09:00 01/22/24 08:21 Atorvastatin 40 Mg Tablet PO 40 mg DAILY EDMOND Administration Clopidogrel Bisulfate 75 mg 01/19/24 09:00 01/22/24 08:21 Clopidogrel Bisulfate 75 Mg Tablet PO 75 mg DAILY EDMOND Administration Dextrose 12.5 gm 01/18/24 23:28 Dextrose 50% 25 Gm/50 Ml Syringe IV PUSH PRN PRN Hypoglycemia Protocol Glucagon 1 mg 01/18/24 23:28 Glucagon For Inj 1 Mg Vial IM PRN PRN Hypoglycemia Protocol Glucose 15 gm 01/18/24 23:28 Glucose Oral Gel 15 Gm Of Glucse In 37.5 Gm Tube PO PRN PRN Hypoglycemia Protocol Heparin Sodium (Porcine) 4,500 units 01/18/24 23:25 Heparin Sodium 5,000 Units/Ml Vial IV PUSH PRN PRN aPTT less than 55 seconds Heparin Sodium (Porcine) 2,500 units 01/18/24 23:25 Heparin Sodium 5,000 Units/Ml Vial IV PUSH PRN PRN aPTT 55 - 70 seconds Hydrocortisone Sodium Succinate 50 mg 01/21/24 12:05 01/22/24 05:13 Hydrocortisone Sodium Succinate 100 Mg/2 Ml Vial IV PUSH 01/26/24 12:04 50 mg Q6H EDMOND Administration Ceftriaxone Sodium 1 gm in 50 mls @ 100 mls/hr 01/19/24 17:00 01/21/24 17:41 Rocephin 1 Gm/Ns 50 Ml IVPB Infused Q24H EDMOND Infusion Azithromycin 500 mg in 250 mls @ 250 mls/hr 01/19/24 18:00 01/21/24 18:43 Zithromax IVPB 01/22/24 18:59 Infused Q24H EDMOND Infusion Heparin Sodium/Dextrose 25,000 units in 250 mls @ 9 mls/hr 01/18/24 23:25 01/22/24 06:36 Heparin Sodium/D5w 100 Units/Ml IV CONT 900 units/hr .Q24H EDMOND 9 mls/hr Titration Protocol 900 UNITS/HR Dextrose 1,000 mls @ 100 mls/hr 01/18/24 23:28 Dextrose 5% 1,000 Ml IVPB PRN PRN Hypoglycemia Protocol Fentanyl Citrate 2,500 mcg in 250 mls @ 12.5 mls/hr 01/21/24 07:40 01/22/24 06:00 Fentanyl 2,500 Mcg/Ns 250 Ml IV CONT 125 mcg/hr .Q20H EDMOND 12.5 mls/hr Titration Protocol 125 MCG/HR Midazolam HCl 100 mg in 100 mls @ 4 mls/hr 01/21/24 07:40 01/22/24 06:00 Versed 100 Mg/Ns 100 Ml IV CONT 4 mg/hr .Q25H EDMOND 4 mls/hr Titration Protocol 4 MG/HR Cisatracurium Besylate 200 mg/ 100 mls @ 4.32 mls/hr 01/21/24 20:05 01/21/24 20:33 Dextrose IV CONT 2 mcg/kg/min .Q23H9M EDMOND 4.32 mls/hr Administration 2 MCG/KG/MIN Albumin Human 100 mls @ 60 mls/hr 01/22/24 12:00 Albutein IVPB Q6HR EDMOND Norepinephrine Bitartrate 8 mg in 250 mls @ 9.375 mls/hr 01/22/24 08:05 Levophed 8 Mg/D5w 250 Ml IV CONT .Q24H EDMOND Protocol 5 MCG/MIN Insulin Aspart 4 - 8 units 01/19/24 12:00 01/22/24 08:37 Insulin Aspart (*Bkc) 100 Units/Ml SUB-Q 6 units Q4H EDMOND Administration Protocol Insulin Glargine 35 units 01/22/24 09:00 01/22/24 08:38 Insulin Glargine (*Bkc) 100 Units/Ml SUB-Q 35 units QAM EDMOND Administration Levothyroxine Sodium 112 mcg 01/19/24 06:30 01/22/24 05:13 Levothyroxine Sodium 112 Mcg Tablet PO 112 mcg DAILY@0630 EDMOND Administration Midazolam HCl 2 mg 01/21/24 07:40 Midazolam Hcl (*Crx) 2 Mg/2 Ml Vial IV PUSH Q5M PRN ventilator asynchrony Midazolam HCl 4 mg 01/21/24 09:35 Midazolam Hcl (*Crx) 2 Mg/2 Ml Vial IV PUSH PRN PRN Sedation Morphine Sulfate 1 mg 01/19/24 10:32 01/20/24 20:04 Morphine Sulfate (*Crx) 2 Mg/Ml Inj IV PUSH 1 mg Q4H PRN Administration Pain Rated 6 or Greater Multi-Ingred Cream/Lotion/Oil/Oint 1 applic 01/21/24 09:00 01/22/24 08:24 Mineral Oil/White Petrolatum Ointment EACH EYE 1 applic Q12HR EDMOND Administration Ondansetron HCl 4 mg 01/18/24 22:13 Ondansetron Inj 4 Mg/2 Ml Vial IV PUSH Q4H PRN Nausea Pantoprazole Sodium 40 mg 01/19/24 09:00 01/22/24 08:24 Pantoprazole Sodium Iv 40 Mg Vial IV PUSH 40 mg Q12HR EDMOND Administration Sertraline HCl 100 mg 01/19/24 09:00 01/22/24 08:21 Sertraline Hcl 50 Mg Tablet PO 100 mg DAILY EDMOND Administration Sodium Bicarbonate 650 mg 01/22/24 09:00 01/22/24 08:21 Sodium Bicarbonate Tab 650 Mg Tablet PO 650 mg BID EDMOND Administration Radiology Results: ITS Impressions Chest/Abdomen/Pelvis CTA 01/18/24 18:30 IMPRESSION: Nonocclusive acute subsegmental pulmonary embolus in the left lower lobe. Very small clot burden. No evidence of right heart strain. Left lower lobe pneumonia. Mild hepatomegaly. Possible cystitis. Otherwise, no acute abdominopelvic process detected. Head CT 01/19/24 05:47 Impression: No intracranial hemorrhage, mass, or acute infarct. Atrophy and chronic white matter changes, as above. Venous Doppler Study 01/19/24 15:06 IMPRESSION: Negative bilateral lower extremity venous US. No deep vein thrombosis. Abdomen X-Ray 01/21/24 08:25 IMPRESSION: Nasogastric tube projects over the upper abdomen. Chest X-Ray 01/22/24 06:39 Impression: Stable bibasilar/perihilar consolidation, consistent with pulmonary edema versus pneumonia. Underlying COPD or chronic interstitial disease. Support tubes. Labs Labs: Laboratory Results - last 24 hr 01/21/24 01/21/24 01/21/24 11:50 12:47 15:56 WBC RBC Hgb Hct MCV MCH MCHC RDW Plt Count MPV APTT Puncture Site Left radial Right radial ABG pH 7.118 L* 7.201 L* ABG pCO2 92.6 H* 78.3 H* ABG pO2 101.2 H 76.9 L ABG PO2/FiO2 Ratio 1.01 0.77 ABG HCO3 29.3 H 30.0 H ABG O2 Saturation 95.0 91.7 L ABG O2 Content 14.4 L 14.1 L ABG Base Excess -1.7 0.5 A-a Gradient 519.2 557.8 Oxyhemoglobin 95.0 92.4 Carboxyhemoglobin Methemoglobin Reduced Hemoglobin Total Hemoglobin 10.7 L 10.8 L O2 Delivery Device Ventilator Ventilator O2 Liters/Min Not Reportable Not Reportable Minute Volume Not Reportable Not Reportable Vent Rate 26 26 Vent Mode Cmv Cmv FiO2 100 80 Tidal Volume 300 360 PEEP 12 12 Peak Inspir Pressure Not Reportable Not Reportable Pressure Support Not Reportable Not Reportable Sodium Potassium Chloride Carbon Dioxide Anion Gap BUN Creatinine Estim Creat Clear Calc Estimated GFR Glucose POC Capillary Glucose 247 H Calcium Magnesium Total Bilirubin AST ALT Alkaline Phosphatase Total Protein Albumin 01/21/24 01/21/24 01/22/24 16:54 20:24 00:34 WBC RBC Hgb Hct MCV MCH MCHC RDW Plt Count MPV APTT Puncture Site ABG pH ABG pCO2 ABG pO2 ABG PO2/FiO2 Ratio ABG HCO3 ABG O2 Saturation ABG O2 Content ABG Base Excess A-a Gradient Oxyhemoglobin Carboxyhemoglobin Methemoglobin Reduced Hemoglobin Total Hemoglobin O2 Delivery Device O2 Liters/Min Minute Volume Vent Rate Vent Mode FiO2 Tidal Volume PEEP Peak Inspir Pressure Pressure Support Sodium Potassium Chloride Carbon Dioxide Anion Gap BUN Creatinine Estim Creat Clear Calc Estimated GFR Glucose POC Capillary Glucose 245 H 291 H 268 H Calcium Magnesium Total Bilirubin AST ALT Alkaline Phosphatase Total Protein Albumin 01/22/24 01/22/24 01/22/24 04:44 05:02 05:20 WBC 23.7 H RBC 2.86 L Hgb 9.0 L Hct 29.5 L MCV 103.1 H D MCH 31.5 MCHC 30.5 L RDW 15.3 H Plt Count 214 MPV 11.3 H APTT 126.3 H Puncture Site Right radial ABG pH 7.142 L* ABG pCO2 83.0 H* ABG pO2 76.6 L ABG PO2/FiO2 Ratio 1.09 ABG HCO3 27.7 H ABG O2 Saturation 90.2 L ABG O2 Content 12.9 L ABG Base Excess -2.3 A-a Gradient 333.3 Oxyhemoglobin 92.6 Carboxyhemoglobin 0.3 Methemoglobin 0.1 Reduced Hemoglobin 7.0 H Total Hemoglobin 9.8 L O2 Delivery Device Ventilator O2 Liters/Min Not Reportable Minute Volume Not Reportable Vent Rate 26 Vent Mode Cmv FiO2 70 Tidal Volume 360 PEEP 12 Peak Inspir Pressure Not Reportable Pressure Support Not Reportable Sodium 143 Potassium 5.1 H Chloride 104 Carbon Dioxide 32 H Anion Gap 7 BUN 36 H D Creatinine 1.30 H Estim Creat Clear Calc 32 Estimated GFR 40 L Glucose 332 H POC Capillary Glucose 319 H Calcium 7.9 L Magnesium 2.2 Total Bilirubin 0.6 AST 71 H ALT 26 Alkaline Phosphatase 110 Total Protein 7.0 Albumin 3.1 L 01/22/24 08:28 WBC RBC Hgb Hct MCV MCH MCHC RDW Plt Count MPV APTT Puncture Site ABG pH ABG pCO2 ABG pO2 ABG PO2/FiO2 Ratio ABG HCO3 ABG O2 Saturation ABG O2 Content ABG Base Excess A-a Gradient Oxyhemoglobin Carboxyhemoglobin Methemoglobin Reduced Hemoglobin Total Hemoglobin O2 Delivery Device O2 Liters/Min Minute Volume Vent Rate Vent Mode FiO2 Tidal Volume PEEP Peak Inspir Pressure Pressure Support Sodium Potassium Chloride Carbon Dioxide Anion Gap BUN Creatinine Estim Creat Clear Calc Estimated GFR Glucose POC Capillary Glucose 318 H Calcium Magnesium Total Bilirubin AST ALT Alkaline Phosphatase Total Protein Albumin Quality VTE Prophylaxis VTE prophylaxis: pharmacologic ordered (Heparin GGT per protocol)
--- NOTE | 2024-01-22 10:52 | PCFNICU ---
ICU Rounding Note: Pt current nutrition is Vital AF 1.2 at 20 ml/hr Nutrition recommendation: goal rate at 50 ml/hr. Last recorded weight is 73.6 kg, up from 72 kg on admit. Bowel Motility: No BM reported at this time. Labs Reviewed: Glu 332, Cr 1.3, K 5.1, GFR 40, BUN 36, Alb 3.1 Meds Noted: Heparin, NovoLog, Lantus, Protonix, Fentanyl, Versed Skin: WNL Additional Notes: Patient remains on mechanical vent. Tube feedings are being tolerating with plans to advance tube feedings today. Goal rate is 50 ml/hr of Vital AF 1.2 providing 1320 kcal/83 gm protein/892 ml water. Flush at 30 ml q 4 hours. Agree with diet orders. Following daily in ICU rounds. Monitor tube feeding initiation, tolerance, wt, labs. Follow daily in ICU rounds and follow up every Friday and Friday.
[2024-01-22 12:00] LABS: Glucose Point of Care 269 mg/dl (65-105)
[2024-01-22] MEDS: ALBUMIN HUMAN 25% 25 GM/100 ML 100 ML IVPB ×3 (12:04→23:31)
[2024-01-22 13:02] LABS: Partial Thromboplastin Time 86.7 Seconds (22.3-36.8)
[2024-01-22 15:51] LABS: Glucose Point of Care 288 mg/dl (65-105)
[2024-01-22] MEDS: AZITHROMYCIN 500 MG/NS 250 ML 500 MG/250 ML BAG 250 MG IVPB (17:38)
[2024-01-22 17:53] LABS: Pneumococcal Antigen Urine NOT DETECTED
[2024-01-22] MEDS: CISATRACURIUM BESYLATE 200 MG in DEXTROSE 5% 80 ML IV CONT (19:07)
[2024-01-22 19:42] LABS: Partial Thromboplastin Time 85.5 Seconds (22.3-36.8)
[2024-01-22 20:54] LABS: Glucose Point of Care 310 mg/dl (65-105)
[2024-01-23] VITALS (38 sets, daily range): BP systolic 111–135; BP diastolic 55–69; PULSE 78–99; RESP 14–31; TEMP 37.3–38.1; O2SAT 87–100
[2024-01-23 00:03] LABS: Glucose Point of Care 316 mg/dl (65-105)
[2024-01-23] MEDS: IPRATROPIUM 0.5 MG/ALBUTEROL SULFATE 2.5 MG AMPUL.NEB 3 ML INHALATION ×4 (02:17→20:41)
[2024-01-23] MEDS: FENTANYL 2,500MCG/NS250ML(*CRX 2,500 MCG/250 ML BAG 12.5 MCG IV CONT (03:36)
[2024-01-23] MEDS: INSULIN ASPART (*BKC) 100 UNITS/ML SUB-Q (04:27)
[2024-01-23 04:52] LABS: Glucose Point of Care 392 mg/dl (65-105)
[2024-01-23 04:52] LABS: Alveolar/Arterial O2 Gradient 284.3 mmHg; Base Excess ABG 0.4 mEq/l (+/-2.0); Carboxyhemoglobin 0.7 % THb (0-2.0); Fractional Inspired Oxygen 55 %; HCO3 ABG 25.1 mEq/l (22.0-26.0); Methemoglobin ABG 0.2 %THb (0-1.5); Oxygen Content ABG 10.6 %vol (16.0-22.0); Oxyhemoglobin 90.3 % THb (90.0-100.0); PO2 ABG 62.2 mmHg (80.0-100.0); PO2 FiO2 Ratio Arterial Blood 1.13 %; Reduced Hemoglobin 8.8 %THb (0-5.0); Total Hemoglobin 8.3 g/dL (12.0-18.0); pH ABG 7.405 (7.350-7.450)
[2024-01-23 04:54] LABS: Device VENTILATOR; Modified Allen's Test Pass; Site Drawn RIGHT RADIAL
[2024-01-23 04:55] LABS: Arterial Blood Gas PEEP 12 cmH2O; Arterial Blood Gas Tidal Volume 360 ml; Arterial Blood Gas Vent Mode CMV; Arterial Blood Gas Ventilator rate 28 /MIN
[2024-01-23] MEDS: HYDROCORTISONE SODIUM SUCCINATE 100 MG/2 ML VIAL 50 MG IV PUSH ×3 (05:39→17:24)
[2024-01-23] MEDS: ALBUMIN HUMAN 25% 25 GM/100 ML 100 ML IVPB ×3 (05:40→17:24)
[2024-01-23] MEDS: LEVOTHYROXINE SODIUM 112 MCG TABLET PO (05:40)
[2024-01-23] MEDS: MIDAZOLAM 100MG/NS 100ML(*CRX) 100 MG/100 ML BAG IV CONT (06:00)
[2024-01-23 06:05] LABS: Hematocrit 24.4 % (37.0-47.0); Hemoglobin 7.8 g/dL (12.0-15.0); Mean Corpuscular Hemoglobin 31.5 pg (26-34); Mean Corpuscular Volume 98.4 fl (80-100); Mean Platelet Volume 11.6 fl (7.4-10.4); Platelet Count Result 206 k/mm3 (150-375); Red Blood Count 2.48 M/mm3 (4.2-5.4); Red Cell Distribution Width 15.2 % (11.5-14.5); White Blood Count 17.9 K/mm3 (4.5-10.0)
[2024-01-23 06:19] LABS: Partial Thromboplastin Time 78.4 Seconds (22.3-36.8)
[2024-01-23 06:25] LABS: Alanine Aminotransferase 23 U/L (6-35); Albumin Level 3.4 g/dL (3.5-5.1); Alkaline Phosphatase 107 U/L (38-126); Anion Gap 9 mmol/L (4-12); Aspartate Amino Transferase 61 U/L (14-36); Bilirubin,Total 0.8 mg/dL (0.2-1.3); Blood Urea Nitrogen 67 mg/dL (7-17); Calcium 7.3 mg/dL (8.4-10.2); Carbon Dioxide 30 mmol/L (22-30); Chloride 102 mmol/L (98-107); Estimated CRCL calculation 19 ml/min; Estimated Glomerular Filt Rate 21; Glucose 404 mg/dL (65-110); Magnesium 2.4 mg/dL (1.6-2.3); Sodium 141 mmol/L (137-145)
[2024-01-23] MEDS: PANTOPRAZOLE SODIUM IV 40 MG VIAL IV PUSH ×2 (08:10→20:11)
[2024-01-23] MEDS: ASPIRIN 81 MG CHEWABLE TABLET PO (08:10)
[2024-01-23] MEDS: HEPARIN SOD/D5W 100 UNITS/ML 25,000 UNITS/250 ML BAG 9 UNITS IV CONT (08:10)
[2024-01-23] MEDS: ATORVASTATIN 40 MG TABLET PO (08:10)
[2024-01-23] MEDS: CLOPIDOGREL BISULFATE 75 MG TABLET PO (08:10)
[2024-01-23] MEDS: FUROSEMIDE INJ 40 MG/4 ML VIAL 80 MG IV PUSH (08:10)
[2024-01-23] MEDS: INSULIN HUMAN REGULAR (*BKC) 100 UNITS/ML 10 UNITS IV PUSH (08:10)
[2024-01-23] MEDS: INSULIN GLARGINE (*BKC) 100 UNITS/ML 55 UNITS SUB-Q (08:17)
--- NOTE | 2024-01-23 08:22 | WPDINTPN ---
Progress Note: A&P Assessment and Plan (1) Acute respiratory failure: Code(s): J96.00 - Acute respiratory failure, unspecified whether with hypoxia or hypercapnia Status: Acute Assessment and Plan: Acute Respiratory failure secondary to pneumonia and PE. Patient appears to have developed ARDS Patient had became CPAP dependent 100% FiO2. Forty of Lasix given IV last night without any significant improvement. Patient does not have any edema on lower extremity suggestive of heart failure. Echo reviewed. 01/20 patient intubated for discussion with the patient and her daughter. ABG reviewed and low tidal volume ventilation. PEEP set at 12 tidal volume at 300 mL. FiO2 is 100%. Increase respiratory rate to 26 Post intubation patient was coughing and gagging leading to desaturation hence was given rocuronium. Patient was started on Nimbex infusion along with sedation at this time. Patient was placed in prone position 01/21 patient was switched to supine position around 2:00 a.m.. She is a 70% FiO2 and 12 of PEEP 01/22 on 55% FiO2 and 12 of PEEP. ABG reviewed. Decrease respiratory rate to 24. Continue to wean FiO2. CT scan done yesterday showed IMPRESSION: Worsening respiratory status with bibasilar consolidation and interstitial thickening with patchy groundglass opacification bilaterally -findings suggesting ARDS. Continue sedation but will pause chemical paralysis and monitor see if patient tolerates coming off the neuromuscular blockers Continue Low tidal volume ventilation and permissive hypercapnia and permissive respiratory acidosis Lasix IV Continue Bronchodilators Treatment of pneumonia and PE as above Chest x-ray reviewed Patient started on course of steroids due to severity of pneumonia and ARDS (2) Septic shock: Code(s): A41.9 - Sepsis, unspecified organism; R65.21 - Severe sepsis with septic shock Status: Acute Assessment and Plan: 01/17: Patient presented with hypotension, elevated lactic acid levels, fevers, cough, hypoxia -received 30 mL/kg IV fluids -started on Levophed via femoral central line - Off IV fluids vasopressors now -continue azithromycin and ceftriaxone (01/17) -01/17: Blood cultures have been obtained and negative till now (3) Community acquired pneumonia: Qualifiers: Laterality: left Lung location: lower lobe of lung Qualified Code(s): J18.9 - Pneumonia, unspecified organism Code(s): J18.9 - Pneumonia, unspecified organism Status: Acute Assessment and Plan: Patient with community-acquired pneumonia -negative for RSV, SARS-CoV-2 a and influenza -continue antibiotics as above (4) Diabetes: Code(s): E11.9 - Type 2 diabetes mellitus without complications Status: Acute Assessment and Plan: Uncontrolled Increase Lantus Start insulin infusion (5) Acute kidney injury: Code(s): N17.9 - Acute kidney failure, unspecified Status: Acute Assessment and Plan: Patient wished he presented with Acute kidney injury likely related to hypotension, septic shock She was adequately fluid-resuscitated and came off of IV fluids Creatinine normalized But now over last 48 hours there has been increase in creatinine again. Drop in urine output Continue 25% albumin. Will avoid liberal fluids due to patient's respiratory status. Patient is positive her I/O balance Lasix IV x1 -continue to monitor urine output, electrolytes and renal function (6) Pulmonary embolism: Code(s): I26.99 - Other pulmonary embolism without acute cor pulmonale Status: Acute Assessment and Plan: Continue heparin infusion small PE Venous Dopplers negative 01/17: CT chest abdomen and pelvis IMPRESSION: Nonocclusive acute subsegmental pulmonary embolus in the left lower lobe. Very small clot burden. No evidence of right heart strain. Left lower lobe pneumonia. Mild hepatomegaly. Possible cystitis. Otherwise, no acute abdominopelvic process detected. Echo Summary 1. Left ventricular systolic function is normal, estimated at 55-60%. 2. There is mildly increased left ventricular wall thickness. 3. The left ventricular diastolic function is grade I diastolic dysfunction. 4. There is trace mitral valve regurgitation. 5. There is trace tricuspid valve regurgitation. 6. No pulmonary hypertension, estimated pulmonary arterial systolic pressure is 41 mmHg. 7. Right ventricular systolic function is normal. 8. Right ventricular chamber dimension is normal. (7) Electrolyte abnormality: Code(s): E87.8 - Other disorders of electrolyte and fluid balance, not elsewhere classified Status: Acute Assessment and Plan: Hyperkalemia resolved with treatment. Monitor electrolytes (8) Diverticulitis: Code(s): K57.92 - Diverticulitis of intestine, part unspecified, without perforation or abscess without bleeding Status: Acute Assessment and Plan: CT abdomen pelvis showed Mural thickening within the rectosigmoid colon with multiple diverticula and prominence of the vasa recta, possibly early diverticulitis. Interval development of perihepatic fluid, compared with previous study. Currently on Rocephin. I will add Flagyl. Plan DVT prophylaxis: Heparin infusion Stress ulcer prophylaxis: Protonix IV q.12 hours Nutrition:. Continue tube feeds. Will plan to advance to goal today. Code Status: 01/20 I spoke to patient prior to intubation about cold and goals of care. She stated that she would like 1-2 rounds of resuscitation in case of cardiac arrest to see if she can be brought back but does not want prolonged resuscitation efforts. She also states that if she is unable to come off the ventilator in 2 weeks time she would not want a feeding tube and tracheostomy for long-term mechanical ventilation. Patient's daughter was at bedside and in agreement with patient's wishes 01/22 patient's son updated him patient's current status including changes in the respiratory status, worsening renal function. I answered all questions. Critical Care Time Spent: 35 minutes Due to a high probability of clinically significant, life threatening deterioration, the patient required my highest level of preparedness to intervene emergently and I personally spent this critical care time directly and personally managing the patient. This critical care time included obtaining a history; examining the patient; pulse oximetry; ordering and review of studies; arranging urgent treatment with development of a management plan; evaluation of patient's response to treatment; frequent reassessment; and discussions with other providers. It was exclusive of separately billable procedures and treating other patients and teaching time. Please see Assessment and Plan section and the rest of the note for further information on patient assessment and treatment This dictation may have been done utilizing a voice recognition system. Attempts have been made to correct errors. However, there may be uncorrected grammatical, spelling, and recognitions errors present. Subjective Date/time seen: 01/23/24 Overnight events reviewed. Afebrile Continues to be on mechanical ventilation 55% FiO2 and 12 of PEEP Tolerating tube feeds Continues to be sedated with Versed fentanyl and paralyzed with Nimbex Sinus rhythm on the monitor. Other Vitals acceptable. Drop in urine output Review of Systems Review of Systems: ROS unobtainable: Yes unobtainable due to endotracheal tube, unobtainable due to medical condition and unobtainable due to mental status Exam Narrative: General: intubated sedated and chemically paralyzed HEENT:? Pupils equal and reactive, sclerae sclera, ET tube in place Neck:? Supple Respiratory:? Coarse breath sounds bilaterally L > R. no wheezing, Cardiac:? S1-S2 was normal, regular rate and rhythm Abdomen:? Soft, distended, periumbilical tenderness to palpation, normoactive bowel sounds Extremities:? No edema, palpable pedal pulses Neuro:? Patient is intubated sedated and chemically paralyzed,, PERRL Skin:? Warm and dry Objective Data Vital Signs Vital Signs: Vital Signs - 24 hr 01/22/24 08:27 01/22/24 09:04 01/22/24 10:00 Temperature Pulse Rate 91 96 Respiratory Rate 28 H Blood Pressure Pulse Oximetry 95 Oxygen Delivery Mechanical Ventilation Fraction of Inspired Oxygen 70 01/22/24 10:00 01/22/24 10:18 01/22/24 10:00 Temperature 37.6 C Pulse Rate 95 95 95 Respiratory Rate 28 H 28 H Blood Pressure 111/60 111/60 Pulse Oximetry 91 92 Oxygen Delivery Mechanical Ventilation Fraction of Inspired Oxygen 60 01/22/24 09:00 01/22/24 11:00 01/22/24 12:00 Temperature Pulse Rate 94 91 87 Respiratory Rate 28 H 28 H 28 H Blood Pressure 107/55 L 104/50 L 97/53 L Pulse Oximetry 95 95 Oxygen Delivery Fraction of Inspired Oxygen 01/22/24 10:00 01/22/24 12:00 01/22/24 10:00 Temperature Pulse Rate 94 87 95 Respiratory Rate 28 H 28 H 28 H Blood Pressure Pulse Oximetry Oxygen Delivery Fraction of Inspired Oxygen 01/22/24 12:00 01/22/24 12:00 01/22/24 12:00 Temperature Pulse Rate 87 Respiratory Rate 28 H Blood Pressure Pulse Oximetry 90 Oxygen Delivery Fraction of Inspired Oxygen 60 60 01/22/24 12:00 01/22/24 12:00 01/22/24 13:15 Temperature 37.5 C Pulse Rate 87 87 90 Respiratory Rate 28 H Blood Pressure 97/53 L Pulse Oximetry 95 93 Oxygen Delivery Mechanical Ventilation Fraction of Inspired Oxygen 60 01/22/24 13:15 01/22/24 13:26 01/22/24 14:00 Temperature Pulse Rate 90 88 91 Respiratory Rate 28 H 28 H Blood Pressure Pulse Oximetry Oxygen Delivery Fraction of Inspired Oxygen 01/22/24 14:00 01/22/24 14:00 01/22/24 14:00 Temperature Pulse Rate 91 93 93 Respiratory Rate 28 H 28 H 28 H Blood Pressure 103/57 L 106/53 L Pulse Oximetry 91 Oxygen Delivery Fraction of Inspired Oxygen 01/22/24 14:00 01/22/24 16:00 01/22/24 16:00 Temperature Pulse Rate 93 Respiratory Rate 28 H Blood Pressure Pulse Oximetry 93 Oxygen Delivery Fraction of Inspired Oxygen 60 60 01/22/24 16:00 01/22/24 16:00 01/22/24 17:00 Temperature 38.1 C H 37.9 C H Pulse Rate 96 89 89 Respiratory Rate 28 H 28 H Blood Pressure 105/56 L 104/53 L Pulse Oximetry 95 95 Oxygen Delivery Fraction of Inspired Oxygen 01/22/24 16:58 01/22/24 17:08 01/22/24 18:00 Temperature Pulse Rate 96 86 Respiratory Rate Blood Pressure Pulse Oximetry 93 91 Oxygen Delivery Mechanical Ventilation Mechanical Ventilation Fraction of Inspired Oxygen 60 55 01/22/24 18:00 01/22/24 16:00 01/22/24 18:00 Temperature Pulse Rate 86 83 89 Respiratory Rate 28 H 28 H 28 H Blood Pressure 94/57 L Pulse Oximetry 93 Oxygen Delivery Fraction of Inspired Oxygen 01/22/24 16:00 01/22/24 18:00 01/22/24 16:00 Temperature Pulse Rate 96 89 96 Respiratory Rate 28 H 28 H 28 H Blood Pressure 105/56 L 104/53 L Pulse Oximetry Oxygen Delivery Fraction of Inspired Oxygen 01/22/24 18:00 01/22/24 19:07 01/22/24 19:07 Temperature Pulse Rate 89 83 83 Respiratory Rate 28 H 28 H 28 H Blood Pressure 103/59 L 103/59 L Pulse Oximetry Oxygen Delivery Fraction of Inspired Oxygen 01/22/24 20:10 01/22/24 20:10 01/22/24 20:25 Temperature Pulse Rate 81 82 83 Respiratory Rate 28 H 28 H Blood Pressure Pulse Oximetry 95 Oxygen Delivery Mechanical Ventilation Fraction of Inspired Oxygen 55 01/22/24 20:00 01/22/24 20:00 01/22/24 20:00 Temperature 38.2 C H Pulse Rate 81 81 81 Respiratory Rate 28 H 28 H 28 H Blood Pressure 121/64 Pulse Oximetry 96 Oxygen Delivery Fraction of Inspired Oxygen 01/22/24 20:00 01/22/24 20:00 01/22/24 20:00 Temperature Pulse Rate 81 Respiratory Rate Blood Pressure Pulse Oximetry Oxygen Delivery Fraction of Inspired Oxygen 55 55 01/22/24 22:00 01/22/24 22:00 01/22/24 22:00 Temperature 38.1 C H Pulse Rate 84 84 84 Respiratory Rate 28 H 28 H Blood Pressure 114/59 L Pulse Oximetry 94 Oxygen Delivery Fraction of Inspired Oxygen 01/22/24 22:00 01/22/24 23:18 01/23/24 00:00 Temperature Pulse Rate 84 79 86 Respiratory Rate 28 H 28 H Blood Pressure Pulse Oximetry 95 Oxygen Delivery Mechanical Ventilation Fraction of Inspired Oxygen 55 01/23/24 00:00 01/23/24 00:00 01/23/24 00:00 Temperature Pulse Rate 86 Respiratory Rate 28 H Blood Pressure Pulse Oximetry Oxygen Delivery Fraction of Inspired Oxygen 55 55 01/23/24 00:00 01/23/24 00:00 01/23/24 02:18 Temperature 38.1 C H Pulse Rate 86 83 78 Respiratory Rate 28 H Blood Pressure 126/62 Pulse Oximetry 100 95 Oxygen Delivery Mechanical Ventilation Fraction of Inspired Oxygen 55 01/23/24 02:18 01/23/24 02:26 01/23/24 03:36 Temperature Pulse Rate 78 81 85 Respiratory Rate 28 H 28 H 28 H Blood Pressure Pulse Oximetry Oxygen Delivery Fraction of Inspired Oxygen 01/23/24 03:36 01/23/24 02:00 01/23/24 04:00 Temperature Pulse Rate 85 82 84 Respiratory Rate 28 H 28 H 28 H Blood Pressure Pulse Oximetry Oxygen Delivery Fraction of Inspired Oxygen 01/23/24 06:00 01/23/24 06:00 01/23/24 02:00 Temperature Pulse Rate 80 80 82 Respiratory Rate 28 H 28 H 28 H Blood Pressure Pulse Oximetry Oxygen Delivery Fraction of Inspired Oxygen 01/23/24 04:00 01/23/24 06:00 01/23/24 04:55 Temperature Pulse Rate 84 80 82 Respiratory Rate 28 H 28 H Blood Pressure Pulse Oximetry 95 Oxygen Delivery Mechanical Ventilation Fraction of Inspired Oxygen 55 01/23/24 06:00 01/23/24 02:00 01/23/24 04:00 Temperature 38.1 C H 38.0 C H Pulse Rate 79 81 84 Respiratory Rate 28 H 28 H 28 H Blood Pressure 132/60 117/60 119/59 L Pulse Oximetry 94 94 Oxygen Delivery Fraction of Inspired Oxygen 01/23/24 06:00 01/23/24 04:00 01/23/24 04:00 Temperature 37.6 C Pulse Rate 79 Respiratory Rate 28 H Blood Pressure 132/60 Pulse Oximetry 95 Oxygen Delivery Fraction of Inspired Oxygen 55 55 01/23/24 02:00 01/23/24 04:00 01/23/24 07:47 Temperature Pulse Rate 82 82 86 Respiratory Rate 28 H Blood Pressure Pulse Oximetry 94 Oxygen Delivery Mechanical Ventilation Fraction of Inspired Oxygen 55 01/23/24 07:58 01/23/24 07:22 01/23/24 07:26 Temperature Pulse Rate 78 80 Respiratory Rate 28 H Blood Pressure Pulse Oximetry 95 Oxygen Delivery Mechanical Ventilation Fraction of Inspired Oxygen 55 55 01/23/24 08:00 01/23/24 08:00 01/23/24 08:00 Temperature Pulse Rate 90 92 91 Respiratory Rate 28 H 28 H 28 H Blood Pressure 116/55 L Pulse Oximetry Oxygen Delivery Fraction of Inspired Oxygen 01/23/24 08:00 Temperature 37.5 C Pulse Rate 91 Respiratory Rate 24 H Blood Pressure 116/55 L Pulse Oximetry 93 Oxygen Delivery Fraction of Inspired Oxygen Intake/Output Intake/Output: Intake & Output 01/20/24 01/21/24 01/22/24 01/23/24 23:59 23:59 23:59 23:59 Intake Total 718.2 2560.8 2392.7 1167.5 Output Total 2475 1450 550 250 Balance -1756.8 1110.8 1842.7 917.5 Meds/Results Medications: Active Medications Generic Name Dose Route Start Last Admin Trade Name Freq PRN Reason Stop Dose Admin Acetaminophen 650 mg 01/20/24 10:08 01/20/24 10:29 Acetaminophen 325 Mg Tablet PO 650 mg Q4H PRN Administration Mild Pain (1-3) or Fever Albuterol/Ipratropium 3 ml 01/22/24 14:00 01/23/24 07:22 Ipratropium 0.5 Mg/Albuterol Sulfate 2.5 Mg Ampul.Neb 3 Ml INHALATION 3 ml Q6HRT EDMOND Administration Aspirin 81 mg 01/19/24 08:00 01/23/24 08:10 Aspirin 81 Mg Chewable Tablet PO 81 mg DAILY@0800 [facility] Administration Atorvastatin Calcium 40 mg 01/19/24 09:00 01/23/24 08:10 Atorvastatin 40 Mg Tablet PO 40 mg DAILY [facility]MON[facility] Administration Clopidogrel Bisulfate 75 mg 01/19/24 09:00 01/23/24 08:10 Clopidogrel Bisulfate 75 Mg Tablet PO 75 mg DAILY [facility] Administration Dextrose 12.5 gm 01/18/24 23:28 Dextrose 50% 25 Gm/50 Ml Syringe IV PUSH PRN PRN Hypoglycemia Protocol Glucagon 1 mg 01/18/24 23:28 Glucagon For Inj 1 Mg Vial IM PRN PRN Hypoglycemia Protocol Glucose 15 gm 01/18/24 23:28 Glucose Oral Gel 15 Gm Of Glucse In 37.5 Gm Tube PO PRN PRN Hypoglycemia Protocol Heparin Sodium (Porcine) 4,500 units 01/18/24 23:25 Heparin Sodium 5,000 Units/Ml Vial IV PUSH PRN PRN aPTT less than 55 seconds Heparin Sodium (Porcine) 2,500 units 01/18/24 23:25 Heparin Sodium 5,000 Units/Ml Vial IV PUSH PRN PRN aPTT 55 - 70 seconds Hydrocortisone Sodium Succinate 50 mg 01/21/24 12:05 01/23/24 05:39 Hydrocortisone Sodium Succinate 100 Mg/2 Ml Vial IV PUSH 01/26/24 12:04 50 mg Q6H [facility]MON[facility] Administration Ceftriaxone Sodium 1 gm in 50 mls @ 100 mls/hr 01/19/24 17:00 01/22/24 16:37 Rocephin 1 Gm/Ns 50 Ml IVPB Infused Q24H [facility] Infusion Heparin Sodium/Dextrose 25,000 units in 250 mls @ 9 mls/hr 01/18/24 23:25 01/23/24 08:10 Heparin Sodium/D5w 100 Units/Ml IV CONT 900 units/hr .Q24H EDMOND 9 mls/hr Administration Protocol 900 UNITS/HR Dextrose 1,000 mls @ 100 mls/hr 01/18/24 23:28 Dextrose 5% 1,000 Ml IVPB PRN PRN Hypoglycemia Protocol Fentanyl Citrate 2,500 mcg in 250 mls @ 12.5 mls/hr 01/21/24 07:40 01/23/24 08:00 Fentanyl 2,500 Mcg/Ns 250 Ml IV CONT 125 mcg/hr .Q20H [facility]MOND 12.5 mls/hr Titration Protocol 125 MCG/HR Midazolam HCl 100 mg in 100 mls @ 4 mls/hr 01/21/24 07:40 01/23/24 08:00 Versed 100 Mg/Ns 100 Ml IV CONT 4 mg/hr .Q25H [facility] 4 mls/hr Titration Protocol 4 MG/HR Cisatracurium Besylate 200 mg/ 100 mls @ 6.48 mls/hr 01/21/24 20:05 01/23/24 08:00 Dextrose IV CONT 3 mcg/kg/min .[id number] [facility]MON[facility] 6.48 mls/hr Infusion 3 MCG/KG/MIN Albumin Human 100 mls @ 60 mls/hr 01/22/24 12:00 01/23/24 07:30 Albutein IVPB 01/24/24 11:59 Infused Q6HR [facility] Infusion Norepinephrine Bitartrate 8 mg in 250 mls @ 9.375 mls/hr 01/22/24 08:05 01/22/24 20:23 Levophed 8 Mg/D5w 250 Ml IV CONT Not Given .Q24H [facility] Protocol 5 MCG/MIN Metronidazole 500 mg in 100 mls @ 100 mls/hr 01/23/24 08:00 Flagyl 500 Mg/Iso Soln 100 Ml IVPB Q8H [facility] Insulin Human Regular 100 100 mls @ 7.5 mls/hr 01/23/24 08:15 units/ Sodium Chloride IV CONT .[id number] [facility] Protocol 7.5 UNITS/HR Insulin Aspart 4 - 8 units 01/19/24 12:00 01/23/24 04:27 Insulin Aspart (*Bkc) 100 Units/Ml SUB-Q 8 units Q4H [facility] Administration Protocol Insulin Glargine 55 units 01/23/24 09:00 01/23/24 08:17 Insulin Glargine (*Bkc) 100 Units/Ml SUB-Q 55 units QAM [facility] Administration Levothyroxine Sodium 112 mcg 01/19/24 06:30 01/23/24 05:40 Levothyroxine Sodium 112 Mcg Tablet PO 112 mcg DAILY@0630 [facility] Administration Midazolam HCl 2 mg 01/21/24 07:40 Midazolam Hcl (*Crx) 2 Mg/2 Ml Vial IV PUSH Q5M PRN ventilator asynchrony Midazolam HCl 4 mg 01/21/24 09:35 Midazolam Hcl (*Crx) 2 Mg/2 Ml Vial IV PUSH PRN PRN Sedation Morphine Sulfate 1 mg 01/19/24 10:32 01/20/24 20:04 Morphine Sulfate (*Crx) 2 Mg/Ml Inj IV PUSH 1 mg Q4H PRN Administration Pain Rated 6 or Greater Multi-Ingred Cream/Lotion/Oil/Oint 1 applic 01/21/24 09:00 01/22/24 20:25 Mineral Oil/White Petrolatum Ointment EACH EYE 1 applic Q12HR [facility] Administration Ondansetron HCl 4 mg 01/18/24 22:13 Ondansetron Inj 4 Mg/2 Ml Vial IV PUSH Q4H PRN Nausea Pantoprazole Sodium 40 mg 01/19/24 09:00 01/23/24 08:10 Pantoprazole Sodium Iv 40 Mg Vial IV PUSH 40 mg Q12HR EMDOND Administration Sertraline HCl 100 mg 01/19/24 09:00 01/22/24 08:21 Sertraline Hcl 50 Mg Tablet PO 100 mg DAILY [facility] Administration Radiology Results: ITS Impressions Chest/Abdomen/Pelvis CTA 01/18/24 18:30 IMPRESSION: Nonocclusive acute subsegmental pulmonary embolus in the left lower lobe. Very small clot burden. No evidence of right heart strain. Left lower lobe pneumonia. Mild hepatomegaly. Possible cystitis. Otherwise, no acute abdominopelvic process detected. Head CT 01/19/24 05:47 Impression: No intracranial hemorrhage, mass, or acute infarct. Atrophy and chronic white matter changes, as above. Venous Doppler Study 01/19/24 15:06 IMPRESSION: Negative bilateral lower extremity venous US. No deep vein thrombosis. Abdomen X-Ray 01/21/24 08:25 IMPRESSION: Nasogastric tube projects over the upper abdomen. Chest/Abdomen/Pelvis CT 01/22/24 12:43 IMPRESSION: Worsening respiratory status with bibasilar consolidation and interstitial thickening with patchy groundglass opacification bilaterally -findings suggesting ARDS. Mural thickening within the rectosigmoid colon with multiple diverticula and prominence of the vasa recta, possibly early diverticulitis. Interval development of perihepatic fluid, compared with previous study. Chest X-Ray 01/23/24 06:32 Impression: Overall improvement in patchy bilateral pulmonary consolidation, there is focal worsening of the right upper lobe. Correlate for bilateral pneumonia. Probable underlying COPD/chronic interstitial disease. Support tubes, as above. Labs Labs: Laboratory Results - last 24 hr 01/19/24 01/22/24 01/22/24 02:00 08:28 11:52 WBC RBC Hgb Hct MCV MCH MCHC RDW Plt Count MPV APTT Puncture Site ABG pH ABG pCO2 ABG pO2 ABG PO2/FiO2 Ratio ABG HCO3 ABG O2 Saturation ABG O2 Content ABG Base Excess A-a Gradient Oxyhemoglobin Carboxyhemoglobin Methemoglobin Reduced Hemoglobin Total Hemoglobin O2 Delivery Device O2 Liters/Min Minute Volume Vent Rate Vent Mode FiO2 Tidal Volume PEEP Peak Inspir Pressure Pressure Support Sodium Potassium Chloride Carbon Dioxide Anion Gap BUN Creatinine Estim Creat Clear Calc Estimated GFR Glucose POC Capillary Glucose 318 H 269 H Calcium Magnesium Total Bilirubin AST ALT Alkaline Phosphatase Total Protein Albumin Urine Pneumococcal Ag Not detected 01/22/24 01/22/24 01/22/24 12:22 15:46 19:04 WBC RBC Hgb Hct MCV MCH MCHC RDW Plt Count MPV APTT 86.7 H 85.5 H Puncture Site ABG pH ABG pCO2 ABG pO2 ABG PO2/FiO2 Ratio ABG HCO3 ABG O2 Saturation ABG O2 Content ABG Base Excess A-a Gradient Oxyhemoglobin Carboxyhemoglobin Methemoglobin Reduced Hemoglobin Total Hemoglobin O2 Delivery Device O2 Liters/Min Minute Volume Vent Rate Vent Mode FiO2 Tidal Volume PEEP Peak Inspir Pressure Pressure Support Sodium Potassium Chloride Carbon Dioxide Anion Gap BUN Creatinine Estim Creat Clear Calc Estimated GFR Glucose POC Capillary Glucose 288 H Calcium Magnesium Total Bilirubin AST ALT Alkaline Phosphatase Total Protein Albumin Urine Pneumococcal Ag 01/22/24 01/22/24 01/23/24 20:22 23:30 04:26 WBC RBC Hgb Hct MCV MCH MCHC RDW Plt Count MPV APTT Puncture Site ABG pH ABG pCO2 ABG pO2 ABG PO2/FiO2 Ratio ABG HCO3 ABG O2 Saturation ABG O2 Content ABG Base Excess A-a Gradient Oxyhemoglobin Carboxyhemoglobin Methemoglobin Reduced Hemoglobin Total Hemoglobin O2 Delivery Device O2 Liters/Min Minute Volume Vent Rate Vent Mode FiO2 Tidal Volume PEEP Peak Inspir Pressure Pressure Support Sodium Potassium Chloride Carbon Dioxide Anion Gap BUN Creatinine Estim Creat Clear Calc Estimated GFR Glucose POC Capillary Glucose 310 H 316 H 392 H Calcium Magnesium Total Bilirubin AST ALT Alkaline Phosphatase Total Protein Albumin Urine Pneumococcal Ag 01/23/24 01/23/24 04:46 05:52 WBC 17.9 H RBC 2.48 L Hgb 7.8 L Hct 24.4 L MCV 98.4 MCH 31.5 MCHC 32.0 RDW 15.2 H Plt Count 206 MPV 11.6 H APTT 78.4 H Puncture Site Right radial ABG pH 7.405 ABG pCO2 41.0 ABG pO2 62.2 L ABG PO2/FiO2 Ratio 1.13 ABG HCO3 25.1 ABG O2 Saturation 92.0 L ABG O2 Content 10.6 L ABG Base Excess 0.4 A-a Gradient 284.3 Oxyhemoglobin 90.3 Carboxyhemoglobin 0.7 Methemoglobin 0.2 Reduced Hemoglobin 8.8 H Total Hemoglobin 8.3 L O2 Delivery Device Ventilator O2 Liters/Min Not Reportable Minute Volume Not Reportable Vent Rate 28 Vent Mode Cmv FiO2 55 Tidal Volume 360 PEEP 12 Peak Inspir Pressure Not Reportable Pressure Support Not Reportable Sodium 141 Potassium 4.0 Chloride 102 Carbon Dioxide 30 Anion Gap 9 BUN 67 H D Creatinine 2.30 H Estim Creat Clear Calc 19 Estimated GFR 21 L Glucose 404 H POC Capillary Glucose Calcium 7.3 L Magnesium 2.4 H Total Bilirubin 0.8 AST 61 H ALT 23 Alkaline Phosphatase 107 Total Protein 7.0 Albumin 3.4 L Urine Pneumococcal Ag Quality VTE Prophylaxis VTE prophylaxis: pharmacologic ordered (Heparin GGT per protocol)
[2024-01-23 08:27] LABS: Glucose Point of Care 416 mg/dl (65-105)
[2024-01-23] MEDS: INSULIN HUMAN REGULAR (*BKC) 100 UNITS in SODIUM CHLORIDE 0.9% IV 99 ML 7.5 UNITS IV CONT (08:27)
[2024-01-23] MEDS: MINERAL OIL/WHITE PETROLATUM OINTMENT 1 APPLIC EACH EYE ×2 (08:29→20:11)
[2024-01-23] MEDS: metroNIDAZOLE 500 MG/ISO 100ML 500 MG/100 ML BAG 100 MG IVPB ×2 (08:33→15:09)
[2024-01-23 09:10] LABS: Creatine Kinase 188 U/L (30-135)
[2024-01-23 09:38] LABS: Glucose Point of Care 364 mg/dl (65-105)
[2024-01-23] MEDS: MIDAZOLAM HCL (*CRX) 2 MG/2 ML VIAL IV PUSH (09:38)
--- NOTE | 2024-01-23 10:31 | PCNFU ---
Nutrition Follow-Up Complete: Inadequate energy intake related to NPO as evidenced by mechanical ventilation Meet estimated needs - Progressing with tube feeding at goal rate, meeting about 88% EER, 85% estimated protein needs Goal: Pt current nutrition is Vital AF 1.2 @ goal rate 50 ml/h provides 1320 kcal, 83 g protein, 892 ml free water. Flush 30 ml q 4 hours. Nutrition recommendation: No new nutrition recommendations. Continue current tube feeding orders Last recorded weight is 74.6 kg. Bowel Motility: No BMs recorded. May benefit from bowel regimen Labs Reviewed: Hgb 7.3, Hct 24.4, Alb 3.4, BUN 67, Cre 2.3, Glu 404 Meds Noted: Insulin drip. Pressors off. Sedation with fentanyl, versed. Heparin, zofran, protonix Skin: No skin issues Additional Notes: Tolerating tube feeding. remains on vent. Continue with current care plan Monitor tube feeding initiation, tolerance, wt, labs. Follow daily in ICU rounds and follow up every Friday and Friday.
[2024-01-23 10:35] LABS: Glucose Point of Care 341 mg/dl (65-105)
[2024-01-23 11:39] LABS: Glucose Point of Care 310 mg/dl (65-105)
[2024-01-23 11:53] LABS: Anion Gap 12 mmol/L (4-12); Blood Urea Nitrogen 77 mg/dL (7-17); Calcium 7.5 mg/dL (8.4-10.2); Carbon Dioxide 30 mmol/L (22-30); Chloride 102 mmol/L (98-107); Estimated CRCL calculation 18 ml/min; Estimated Glomerular Filt Rate 20; Glucose 291 mg/dL (65-110); Potassium 3.9 mmol/L (3.4-5.0); Sodium 144 mmol/L (137-145)
[2024-01-23 12:35] LABS: Glucose Point of Care 233 mg/dl (65-105)
--- NOTE | 2024-01-23 13:03 | P.PNIM_ITS ---
Progress Note: A&P Assessment and Plan (1) Acute respiratory failure: Code(s): J96.00 - Acute respiratory failure, unspecified whether with hypoxia or hypercapnia Status: Acute Assessment and Plan: Acute Respiratory failure secondary to pneumonia and PE. Patient appears to have developed ARDS Patient had became CPAP dependent 100% FiO2. Lasix IV given without benefit Her condition worsened requiriing intubation 01/20. Post intubation, patient was coughing and gagging leading to desaturation hence was given rocuronium. Patient was started on Nimbex infusion along with sedation Patient was placed in prone position CT Chest showing concerns for ARDS. Paralytic meds stopped. Sedation weaned earlier but was having cough spells so this was advanced again Continue Bronchodilators Continue Heparin drip. Contineu IV abd Patient started on course of steroids due to severity of pneumonia and ARDS PEEP set at 12. FiO2 is 55%. Wean vent as tolerated. Appreciate transfer agent input (2) Septic shock: Code(s): A41.9 - Sepsis, unspecified organism; R65.21 - Severe sepsis with septic shock Status: Acute Assessment and Plan: Patient presented with cough/SOB and found to have septic shock with HoTN, elevated lactic, fevers and hypoxia Received 30 mL/kg IV fluids and was started on Levophed via femoral central line Off IV fluids and vasopressors now WBC elevated but on steroids. PCT was 17 on admission BCx NGTD Continue ceftriaxone (01/17); completed Azithro (3) Community acquired pneumonia: Qualifiers: Laterality: left Lung location: lower lobe of lung Qualified Code(s): J18.9 - Pneumonia, unspecified organism Code(s): J18.9 - Pneumonia, unspecified organism Status: Acute Assessment and Plan: Patient with community-acquired pneumonia RSV, SARS-CoV-2 and influenza PCR negative Continue antibiotics as above (4) Acute kidney injury: Code(s): N17.9 - Acute kidney failure, unspecified Status: Acute Assessment and Plan: Patient presented with YESI likely related to hypotension, septic shock She was adequately fluid-resuscitated and came off of IV fluids Creatinine normalized initially but now back up to 2.3 with drop in urine output 0->1450->550->250 so far today Continue 25% albumin. Hold on IV fluids due to patient's respiratory status and that she is fluid positive Lasix 80mg IV x1 given today. Continue to monitor urine output, electrolytes and renal function (5) Diabetes: Code(s): E11.9 - Type 2 diabetes mellitus without complications Status: Acute Assessment and Plan: The patient's blood glucose was reviewed on 01/22 Glucose remains poorly controlled. Continue AccuCheks covering with sliding scale. Hypoglycemia protocol available as needed. Lantus increased. Insulin drip added. Continue to monitor (6) Pulmonary embolism: Code(s): I26.99 - Other pulmonary embolism without acute cor pulmonale Status: Acute Assessment and Plan: Patient presents with SOB and CTA chest performed CT showing nonocclusive acute subsegmental PE in the left lower lobe with very small clot burden. No evidence of right heart strain. Venous Dopplers negative Echo showing EF 55-60%, grade I diastolic dysfunction. Continue heparin infusion (7) Electrolyte abnormality: Code(s): E87.8 - Other disorders of electrolyte and fluid balance, not elsewhere classified Status: Acute Assessment and Plan: Hyperkalemia resolved with treatment. Monitor electrolytes (8) Diverticulitis: Code(s): K57.92 - Diverticulitis of intestine, part unspecified, without perforation or abscess without bleeding Status: Acute Assessment and Plan: CT abdomen pelvis showed mural thickening within the rectosigmoid colon with multiple diverticula and prominence of the vasa recta, possibly early diverticulitis. Interval development of perihepatic fluid, compared with previous study. Currently on Rocephin. Flagyl added. Plan Anemia - Probably related to above. Hgb did drop from 9 to 7.8. Repeat HH later today. DVT prophylaxis: Heparin infusion Code Status: Full Subjective Date/time seen: 01/23/24 13:03 Interval history: 68yo female with HTN, CHF, DM and HLD here for cough and SOB. Assuming care. Chart reviewed. Patient is intubated and sedated and thus unable to provide history. Family at bedside and hospital course was discussed. All questions answered. Paralytic was removed earlier today. Remains on sedation. Family states sedation was increased that she was having coughing spells. Review of Systems Review of Systems: ROS unobtainable: Yes unobtainable due to endotracheal tube Exam Narrative: Tm 100.7 99.6 111/58 82 25 94% MV Gen -intubated and sedated HEENT -ET tube and OG tube secured. Chest -coarse breath sounds anteriorly CV - RRR S1/S2. Telemetry showing PVCs. Abd -soft. Obese. Nondistended. Positive bowel sounds. -Pressley secured draining clear yellow urine. Right femoral triple-lumen catheter in place. Ext - No pedal edema Neuro -sedated Skin - Warm and dry Objective Data Vital Signs Vital Signs: Vital Signs - 24 hr 01/22/24 13:15 01/22/24 13:15 01/22/24 13:26 Temperature Pulse Rate 90 90 88 Respiratory Rate 28 H 28 H Blood Pressure Pulse Oximetry 93 Oxygen Delivery Mechanical Ventilation Fraction of Inspired Oxygen 60 01/22/24 14:00 01/22/24 14:00 01/22/24 14:00 Temperature Pulse Rate 91 91 93 Respiratory Rate 28 H 28 H Blood Pressure 103/57 L 106/53 L Pulse Oximetry 91 Oxygen Delivery Fraction of Inspired Oxygen 01/22/24 14:00 01/22/24 14:00 01/22/24 16:00 Temperature Pulse Rate 93 93 Respiratory Rate 28 H 28 H Blood Pressure Pulse Oximetry Oxygen Delivery Fraction of Inspired Oxygen 60 01/22/24 16:00 01/22/24 16:00 01/22/24 16:00 Temperature 100.6 F H Pulse Rate 96 89 Respiratory Rate 28 H Blood Pressure 105/56 L Pulse Oximetry 93 95 Oxygen Delivery Fraction of Inspired Oxygen 60 01/22/24 17:00 01/22/24 16:58 01/22/24 17:08 Temperature 100.3 F H Pulse Rate 89 96 Respiratory Rate 28 H Blood Pressure 104/53 L Pulse Oximetry 95 93 91 Oxygen Delivery Mechanical Ventilation Mechanical Ventilation Fraction of Inspired Oxygen 60 55 01/22/24 18:00 01/22/24 18:00 01/22/24 16:00 Temperature Pulse Rate 86 86 83 Respiratory Rate 28 H 28 H Blood Pressure 94/57 L Pulse Oximetry 93 Oxygen Delivery Fraction of Inspired Oxygen 01/22/24 18:00 01/22/24 16:00 01/22/24 18:00 Temperature Pulse Rate 89 96 89 Respiratory Rate 28 H 28 H 28 H Blood Pressure 105/56 L 104/53 L Pulse Oximetry Oxygen Delivery Fraction of Inspired Oxygen 01/22/24 16:00 01/22/24 18:00 01/22/24 19:07 Temperature Pulse Rate 96 89 83 Respiratory Rate 28 H 28 H 28 H Blood Pressure 103/59 L Pulse Oximetry Oxygen Delivery Fraction of Inspired Oxygen 01/22/24 19:07 01/22/24 20:10 01/22/24 20:10 Temperature Pulse Rate 83 81 82 Respiratory Rate 28 H 28 H Blood Pressure 103/59 L Pulse Oximetry 95 Oxygen Delivery Mechanical Ventilation Fraction of Inspired Oxygen 55 01/22/24 20:25 01/22/24 20:00 01/22/24 20:00 Temperature Pulse Rate 83 81 81 Respiratory Rate 28 H 28 H 28 H Blood Pressure Pulse Oximetry Oxygen Delivery Fraction of Inspired Oxygen 01/22/24 20:00 01/22/24 20:00 01/22/24 20:00 Temperature 100.7 F H Pulse Rate 81 Respiratory Rate 28 H Blood Pressure 121/64 Pulse Oximetry 96 Oxygen Delivery Fraction of Inspired Oxygen 55 55 01/22/24 20:00 01/22/24 22:00 01/22/24 22:00 Temperature 100.5 F H Pulse Rate 81 84 84 Respiratory Rate 28 H Blood Pressure 114/59 L Pulse Oximetry 94 Oxygen Delivery Fraction of Inspired Oxygen 01/22/24 22:00 01/22/24 22:00 01/22/24 23:18 Temperature Pulse Rate 84 84 79 Respiratory Rate 28 H 28 H Blood Pressure Pulse Oximetry 95 Oxygen Delivery Mechanical Ventilation Fraction of Inspired Oxygen 55 01/23/24 00:00 01/23/24 00:00 01/23/24 00:00 Temperature Pulse Rate 86 86 Respiratory Rate 28 H 28 H Blood Pressure Pulse Oximetry Oxygen Delivery Fraction of Inspired Oxygen 55 01/23/24 00:00 01/23/24 00:00 01/23/24 00:00 Temperature 100.5 F H Pulse Rate 86 83 Respiratory Rate 28 H Blood Pressure 126/62 Pulse Oximetry 100 Oxygen Delivery Fraction of Inspired Oxygen 55 01/23/24 02:18 01/23/24 02:18 01/23/24 02:26 Temperature Pulse Rate 78 78 81 Respiratory Rate 28 H 28 H Blood Pressure Pulse Oximetry 95 Oxygen Delivery Mechanical Ventilation Fraction of Inspired Oxygen 55 01/23/24 03:36 01/23/24 03:36 01/23/24 02:00 Temperature Pulse Rate 85 85 82 Respiratory Rate 28 H 28 H 28 H Blood Pressure Pulse Oximetry Oxygen Delivery Fraction of Inspired Oxygen 01/23/24 04:00 01/23/24 06:00 01/23/24 06:00 Temperature Pulse Rate 84 80 80 Respiratory Rate 28 H 28 H 28 H Blood Pressure Pulse Oximetry Oxygen Delivery Fraction of Inspired Oxygen 01/23/24 02:00 01/23/24 04:00 01/23/24 06:00 Temperature Pulse Rate 82 84 80 Respiratory Rate 28 H 28 H 28 H Blood Pressure Pulse Oximetry Oxygen Delivery Fraction of Inspired Oxygen 01/23/24 04:55 01/23/24 06:00 01/23/24 02:00 Temperature 100.6 F H Pulse Rate 82 79 81 Respiratory Rate 28 H 28 H Blood Pressure 132/60 117/60 Pulse Oximetry 95 94 Oxygen Delivery Mechanical Ventilation Fraction of Inspired Oxygen 55 01/23/24 04:00 01/23/24 06:00 01/23/24 04:00 Temperature 100.4 F H 99.6 F Pulse Rate 84 79 Respiratory Rate 28 H 28 H Blood Pressure 119/59 L 132/60 Pulse Oximetry 94 95 Oxygen Delivery Fraction of Inspired Oxygen 55 01/23/24 04:00 01/23/24 02:00 01/23/24 04:00 Temperature Pulse Rate 82 82 Respiratory Rate Blood Pressure Pulse Oximetry Oxygen Delivery Fraction of Inspired Oxygen 55 01/23/24 07:47 01/23/24 07:58 01/23/24 07:22 Temperature Pulse Rate 86 78 Respiratory Rate 28 H 28 H Blood Pressure Pulse Oximetry 94 Oxygen Delivery Mechanical Ventilation Fraction of Inspired Oxygen 55 55 01/23/24 07:26 01/23/24 08:00 01/23/24 08:00 Temperature Pulse Rate 80 90 92 Respiratory Rate 28 H 28 H Blood Pressure 116/55 L Pulse Oximetry 95 Oxygen Delivery Mechanical Ventilation Fraction of Inspired Oxygen 55 01/23/24 08:00 01/23/24 08:00 01/23/24 07:35 Temperature 99.5 F Pulse Rate 91 91 93 Respiratory Rate 28 H 24 H 24 H Blood Pressure 116/55 L Pulse Oximetry 93 Oxygen Delivery Fraction of Inspired Oxygen 01/23/24 08:43 01/23/24 09:00 01/23/24 08:00 Temperature Pulse Rate 96 97 91 Respiratory Rate 14 Blood Pressure 135/69 Pulse Oximetry 94 Oxygen Delivery Mechanical Ventilation Fraction of Inspired Oxygen 55 01/23/24 09:35 01/23/24 09:36 01/23/24 09:50 Temperature Pulse Rate 99 97 81 Respiratory Rate 31 H 29 H 29 H Blood Pressure Pulse Oximetry Oxygen Delivery Fraction of Inspired Oxygen 01/23/24 10:00 01/23/24 10:00 01/23/24 10:01 Temperature Pulse Rate 85 85 84 Respiratory Rate 22 H 24 H 28 H Blood Pressure 119/59 L Pulse Oximetry Oxygen Delivery Fraction of Inspired Oxygen 01/23/24 10:00 01/23/24 10:00 01/23/24 11:06 Temperature 99.5 F Pulse Rate 85 85 81 Respiratory Rate 20 Blood Pressure 119/59 L Pulse Oximetry 94 93 Oxygen Delivery Mechanical Ventilation Fraction of Inspired Oxygen 55 01/23/24 11:41 01/23/24 11:51 01/23/24 11:56 Temperature Pulse Rate 80 79 Respiratory Rate 26 H 26 H Blood Pressure 117/59 L Pulse Oximetry 95 Oxygen Delivery Mechanical Ventilation Fraction of Inspired Oxygen 55 55 01/23/24 12:00 01/23/24 12:00 01/23/24 12:00 Temperature 99.6 F Pulse Rate 80 80 81 Respiratory Rate 24 H 24 H 25 H Blood Pressure 111/58 L Pulse Oximetry 94 Oxygen Delivery Fraction of Inspired Oxygen 01/23/24 12:00 Temperature Pulse Rate 82 Respiratory Rate Blood Pressure Pulse Oximetry Oxygen Delivery Fraction of Inspired Oxygen Intake/Output Intake/Output: Intake & Output 01/20/24 01/21/24 01/22/24 01/23/24 23:59 23:59 23:59 23:59 Intake Total 718.2 2560.8 2392.7 1423.5 Output Total 2475 1450 550 250 Balance -1756.8 1110.8 1842.7 1173.5 Meds/Results Medications: Active Medications Generic Name Dose Route Start Last Admin Trade Name Freq PRN Reason Stop Dose Admin Acetaminophen 650 mg 01/20/24 10:08 01/20/24 10:29 Acetaminophen 325 Mg Tablet PO 650 mg Q4H PRN Administration Mild Pain (1-3) or Fever Albuterol/Ipratropium 3 ml 01/22/24 14:00 01/23/24 07:22 Ipratropium 0.5 Mg/Albuterol Sulfate 2.5 Mg Ampul.Neb 3 Ml INHALATION 3 ml Q6HRT EDMOND Administration Aspirin 81 mg 01/19/24 08:00 01/23/24 08:10 Aspirin 81 Mg Chewable Tablet PO 81 mg DAILY@0800 EDMOND Administration Atorvastatin Calcium 40 mg 01/19/24 09:00 01/23/24 08:10 Atorvastatin 40 Mg Tablet PO 40 mg DAILY EDMOND Administration Clopidogrel Bisulfate 75 mg 01/19/24 09:00 01/23/24 08:10 Clopidogrel Bisulfate 75 Mg Tablet PO 75 mg DAILY EDMOND Administration Dextrose 12.5 gm 01/18/24 23:28 Dextrose 50% 25 Gm/50 Ml Syringe IV PUSH PRN PRN Hypoglycemia Protocol Glucagon 1 mg 01/18/24 23:28 Glucagon For Inj 1 Mg Vial IM PRN PRN Hypoglycemia Protocol Glucose 15 gm 01/18/24 23:28 Glucose Oral Gel 15 Gm Of Glucse In 37.5 Gm Tube PO PRN PRN Hypoglycemia Protocol Heparin Sodium (Porcine) 4,500 units 01/18/24 23:25 Heparin Sodium 5,000 Units/Ml Vial IV PUSH PRN PRN aPTT less than 55 seconds Heparin Sodium (Porcine) 2,500 units 01/18/24 23:25 Heparin Sodium 5,000 Units/Ml Vial IV PUSH PRN PRN aPTT 55 - 70 seconds Hydrocortisone Sodium Succinate 50 mg 01/21/24 12:05 01/23/24 11:27 Hydrocortisone Sodium Succinate 100 Mg/2 Ml Vial IV PUSH 01/26/24 12:04 50 mg Q6H EDMOND Administration Ceftriaxone Sodium 1 gm in 50 mls @ 100 mls/hr 01/19/24 17:00 01/22/24 16:37 Rocephin 1 Gm/Ns 50 Ml IVPB Infused Q24H EDMOND Infusion Heparin Sodium/Dextrose 25,000 units in 250 mls @ 9 mls/hr 01/18/24 23:25 01/23/24 12:00 Heparin Sodium/D5w 100 Units/Ml IV CONT 900 units/hr .Q24H EDMOND 9 mls/hr Titration Protocol 900 UNITS/HR Dextrose 1,000 mls @ 100 mls/hr 01/18/24 23:28 Dextrose 5% 1,000 Ml IVPB PRN PRN Hypoglycemia Protocol Fentanyl Citrate 2,500 mcg in 250 mls @ 15 mls/hr 01/21/24 07:40 01/23/24 12:00 Fentanyl 2,500 Mcg/Ns 250 Ml IV CONT 150 mcg/hr .[id number] EDMOND 15 mls/hr Titration Protocol 150 MCG/HR Midazolam HCl 100 mg in 100 mls @ 6 mls/hr 01/21/24 07:40 01/23/24 12:00 Versed 100 Mg/Ns 100 Ml IV CONT 6 mg/hr .[id number] EDMOND 6 mls/hr Titration Protocol 6 MG/HR Albumin Human 100 mls @ 60 mls/hr 01/22/24 12:00 01/23/24 11:27 Albutein IVPB 01/24/24 11:59 60 mls/hr Q6HR EDMOND Administration Norepinephrine Bitartrate 8 mg in 250 mls @ 9.375 mls/hr 01/22/24 08:05 01/23/24 10:54 Levophed 8 Mg/D5w 250 Ml IV CONT Not Given .Q24H EDMOND Protocol 5 MCG/MIN Metronidazole 500 mg in 100 mls @ 100 mls/hr 01/23/24 08:00 01/23/24 09:33 Flagyl 500 Mg/Iso Soln 100 Ml IVPB Infused Q8H EDMOND Infusion Insulin Human Regular 100 100 mls @ 11 mls/hr 01/23/24 08:15 01/23/24 12:32 units/ Sodium Chloride IV CONT 11 units/hr .Q9H6M EDMOND 11 mls/hr Titration Protocol 11 UNITS/HR Insulin Aspart 4 - 8 units 01/19/24 12:00 01/23/24 04:27 Insulin Aspart (*Bkc) 100 Units/Ml SUB-Q 8 units Q4H EDMOND Administration Protocol Insulin Glargine 55 units 01/23/24 09:00 01/23/24 08:17 Insulin Glargine (*Bkc) 100 Units/Ml SUB-Q 55 units QAM EDMOND Administration Levothyroxine Sodium 112 mcg 01/19/24 06:30 01/23/24 05:40 Levothyroxine Sodium 112 Mcg Tablet PO 112 mcg DAILY@0630 [facility] Administration Midazolam HCl 2 mg 01/21/24 07:40 01/23/24 09:38 Midazolam Hcl (*Crx) 2 Mg/2 Ml Vial IV PUSH 2 mg Q5M PRN Administration ventilator asynchrony Midazolam HCl 4 mg 01/21/24 09:35 Midazolam Hcl (*Crx) 2 Mg/2 Ml Vial IV PUSH PRN PRN Sedation Morphine Sulfate 1 mg 01/19/24 10:32 01/20/24 20:04 Morphine Sulfate (*Crx) 2 Mg/Ml Inj IV PUSH 1 mg Q4H PRN Administration Pain Rated 6 or Greater Multi-Ingred Cream/Lotion/Oil/Oint 1 applic 01/21/24 09:00 01/23/24 08:29 Mineral Oil/White Petrolatum Ointment EACH EYE 1 applic Q12HR EDMOND Administration Ondansetron HCl 4 mg 01/18/24 22:13 Ondansetron Inj 4 Mg/2 Ml Vial IV PUSH Q4H PRN Nausea Pantoprazole Sodium 40 mg 01/19/24 09:00 01/23/24 08:10 Pantoprazole Sodium Iv 40 Mg Vial IV PUSH 40 mg Q12HR EDMOND Administration Sertraline HCl 100 mg 01/19/24 09:00 01/22/24 08:21 Sertraline Hcl 50 Mg Tablet PO 100 mg DAILY EDMOND Administration Radiology Results: ITS Impressions Chest/Abdomen/Pelvis CTA 01/18/24 18:30 IMPRESSION: Nonocclusive acute subsegmental pulmonary embolus in the left lower lobe. Very small clot burden. No evidence of right heart strain. Left lower lobe pneumonia. Mild hepatomegaly. Possible cystitis. Otherwise, no acute abdominopelvic process detected. Head CT 01/19/24 05:47 Impression: No intracranial hemorrhage, mass, or acute infarct. Atrophy and chronic white matter changes, as above. Venous Doppler Study 01/19/24 15:06 IMPRESSION: Negative bilateral lower extremity venous US. No deep vein thrombosis. Abdomen X-Ray 01/21/24 08:25 IMPRESSION: Nasogastric tube projects over the upper abdomen. Chest/Abdomen/Pelvis CT 01/22/24 12:43 IMPRESSION: Worsening respiratory status with bibasilar consolidation and interstitial thickening with patchy groundglass opacification bilaterally -findings s uggesting ARDS. Mural thickening within the rectosigmoid colon with multiple diverticula and prominence of the vasa recta, possibly early diverticulitis. Interval development of perihepatic fluid, compared with previous study. Chest X-Ray 01/23/24 06:32 Impression: Overall improvement in patchy bilateral pulmonary consolidation, there is focal worsening of the right upper lobe. Correlate for bilateral pneumonia. Probable underlying COPD/chronic interstitial disease. Support tubes, as above. Labs Labs: Laboratory Results - last 24 hr 01/19/24 01/22/24 01/22/24 02:00 12:22 15:46 WBC RBC Hgb Hct MCV MCH MCHC RDW Plt Count MPV APTT 86.7 H Puncture Site ABG pH ABG pCO2 ABG pO2 ABG PO2/FiO2 Ratio ABG HCO3 ABG O2 Saturation ABG O2 Content ABG Base Excess A-a Gradient Oxyhemoglobin Carboxyhemoglobin Methemoglobin Reduced Hemoglobin Total Hemoglobin O2 Delivery Device O2 Liters/Min Minute Volume Vent Rate Vent Mode FiO2 Tidal Volume PEEP Peak Inspir Pressure Pressure Support Sodium Potassium Chloride Carbon Dioxide Anion Gap BUN Creatinine Estim Creat Clear Calc Estimated GFR Glucose POC Capillary Glucose 288 H Calcium Magnesium Total Bilirubin AST ALT Alkaline Phosphatase Total Creatine Kinase Total Protein Albumin Urine Pneumococcal Ag Not detected 01/22/24 01/22/24 01/22/24 19:04 20:22 23:30 WBC RBC Hgb Hct MCV MCH MCHC RDW Plt Count MPV APTT 85.5 H Puncture Site ABG pH ABG pCO2 ABG pO2 ABG PO2/FiO2 Ratio ABG HCO3 ABG O2 Saturation ABG O2 Content ABG Base Excess A-a Gradient Oxyhemoglobin Carboxyhemoglobin Methemoglobin Reduced Hemoglobin Total Hemoglobin O2 Delivery Device O2 Liters/Min Minute Volume Vent Rate Vent Mode FiO2 Tidal Volume PEEP Peak Inspir Pressure Pressure Support Sodium Potassium Chloride Carbon Dioxide Anion Gap BUN Creatinine Estim Creat Clear Calc Estimated GFR Glucose POC Capillary Glucose 310 H 316 H Calcium Magnesium Total Bilirubin AST ALT Alkaline Phosphatase Total Creatine Kinase Total Protein Albumin Urine Pneumococcal Ag 01/23/24 01/23/24 01/23/24 04:26 04:46 05:44 WBC RBC Hgb Hct MCV MCH MCHC RDW Plt Count MPV APTT Puncture Site Right radial ABG pH 7.405 ABG pCO2 41.0 ABG pO2 62.2 L ABG PO2/FiO2 Ratio 1.13 ABG HCO3 25.1 ABG O2 Saturation 92.0 L ABG O2 Content 10.6 L ABG Base Excess 0.4 A-a Gradient 284.3 Oxyhemoglobin 90.3 Carboxyhemoglobin 0.7 Methemoglobin 0.2 Reduced Hemoglobin 8.8 H Total Hemoglobin 8.3 L O2 Delivery Device Ventilator O2 Liters/Min Not Reportable Minute Volume Not Reportable Vent Rate 28 Vent Mode Cmv FiO2 55 Tidal Volume 360 PEEP 12 Peak Inspir Pressure Not Reportable Pressure Support Not Reportable Sodium Potassium Chloride Carbon Dioxide Anion Gap BUN Creatinine Estim Creat Clear Calc Estimated GFR Glucose POC Capillary Glucose 392 H Calcium Magnesium Total Bilirubin AST ALT Alkaline Phosphatase Total Creatine Kinase 188 H Total Protein Albumin Urine Pneumococcal Ag 01/23/24 01/23/24 01/23/24 05:52 08:09 09:28 WBC 17.9 H RBC 2.48 L Hgb 7.8 L Hct 24.4 L MCV 98.4 MCH 31.5 MCHC 32.0 RDW 15.2 H Plt Count 206 MPV 11.6 H APTT 78.4 H Puncture Site ABG pH ABG pCO2 ABG pO2 ABG PO2/FiO2 Ratio ABG HCO3 ABG O2 Saturation ABG O2 Content ABG Base Excess A-a Gradient Oxyhemoglobin Carboxyhemoglobin Methemoglobin Reduced Hemoglobin Total Hemoglobin O2 Delivery Device O2 Liters/Min Minute Volume Vent Rate Vent Mode FiO2 Tidal Volume PEEP Peak Inspir Pressure Pressure Support Sodium 141 Potassium 4.0 Chloride 102 Carbon Dioxide 30 Anion Gap 9 BUN 67 H D Creatinine 2.30 H Estim Creat Clear Calc 19 Estimated GFR 21 L Glucose 404 H POC Capillary Glucose 416 H 364 H Calcium 7.3 L Magnesium 2.4 H Total Bilirubin 0.8 AST 61 H ALT 23 Alkaline Phosphatase 107 Total Creatine Kinase Total Protein 7.0 Albumin 3.4 L Urine Pneumococcal Ag 01/23/24 01/23/24 01/23/24 10:31 11:24 11:29 WBC RBC Hgb Hct MCV MCH MCHC RDW Plt Count MPV APTT Puncture Site ABG pH ABG pCO2 ABG pO2 ABG PO2/FiO2 Ratio ABG HCO3 ABG O2 Saturation ABG O2 Content ABG Base Excess A-a Gradient Oxyhemoglobin Carboxyhemoglobin Methemoglobin Reduced Hemoglobin Total Hemoglobin O2 Delivery Device O2 Liters/Min Minute Volume Vent Rate Vent Mode FiO2 Tidal Volume PEEP Peak Inspir Pressure Pressure Support Sodium 144 Potassium 3.9 Chloride 102 Carbon Dioxide 30 Anion Gap 12 BUN 77 H D Creatinine 2.40 H Estim Creat Clear Calc 18 Estimated GFR 20 L Glucose 291 H POC Capillary Glucose 341 H 310 H Calcium 7.5 L Magnesium Total Bilirubin AST ALT Alkaline Phosphatase Total Creatine Kinase Total Protein Albumin Urine Pneumococcal Ag 01/23/24 12:31 WBC RBC Hgb Hct MCV MCH MCHC RDW Plt Count MPV APTT Puncture Site ABG pH ABG pCO2 ABG pO2 ABG PO2/FiO2 Ratio ABG HCO3 ABG O2 Saturation ABG O2 Content ABG Base Excess A-a Gradient Oxyhemoglobin Carboxyhemoglobin Methemoglobin Reduced Hemoglobin Total Hemoglobin O2 Delivery Device O2 Liters/Min Minute Volume Vent Rate Vent Mode FiO2 Tidal Volume PEEP Peak Inspir Pressure Pressure Support Sodium Potassium Chloride Carbon Dioxide Anion Gap BUN Creatinine Estim Creat Clear Calc Estimated GFR Glucose POC Capillary Glucose 233 H Calcium Magnesium Total Bilirubin AST ALT Alkaline Phosphatase Total Creatine Kinase Total Protein Albumin Urine Pneumococcal Ag
[2024-01-23 13:34] LABS: Glucose Point of Care 219 mg/dl (65-105)
[2024-01-23] MEDS: polyethylene glycoL 3350 17 GM POWD.PACK PO (14:31)
[2024-01-23 14:38] LABS: Glucose Point of Care 192 mg/dl (65-105)
[2024-01-23 15:41] LABS: Glucose Point of Care 249 mg/dl (65-105)
[2024-01-23 16:09] LABS: Anion Gap 13 mmol/L (4-12); Blood Urea Nitrogen 82 mg/dL (7-17); Calcium 7.4 mg/dL (8.4-10.2); Carbon Dioxide 29 mmol/L (22-30); Chloride 102 mmol/L (98-107); Estimated CRCL calculation 16 ml/min; Estimated Glomerular Filt Rate 17; Glucose 254 mg/dL (65-110); Potassium 3.8 mmol/L (3.4-5.0); Sodium 144 mmol/L (137-145)
[2024-01-23 17:06] LABS: Glucose Point of Care 258 mg/dl (65-105)
[2024-01-23 17:37] LABS: Glucose Point of Care 245 mg/dl (65-105)
[2024-01-23] MEDS: INSULIN HUMAN REGULAR (*BKC) 100 UNITS in SODIUM CHLORIDE 0.9% IV 99 ML 7 UNITS IV CONT (18:37)
[2024-01-23 18:41] LABS: Glucose Point of Care 258 mg/dl (65-105)
[2024-01-23 20:20] LABS: Glucose Point of Care 253 mg/dl (65-105)
[2024-01-23 20:39] LABS: Anion Gap 16 mmol/L (4-12); Blood Urea Nitrogen 88 mg/dL (7-17); Calcium 7.5 mg/dL (8.4-10.2); Carbon Dioxide 26 mmol/L (22-30); Chloride 102 mmol/L (98-107); Estimated CRCL calculation 16 ml/min; Estimated Glomerular Filt Rate 17; Glucose 254 mg/dL (65-110); Potassium 3.8 mmol/L (3.4-5.0); Sodium 144 mmol/L (137-145)
[2024-01-23 21:34] LABS: Glucose Point of Care 208 mg/dl (65-105)
[2024-01-23] MEDS: FENTANYL 2,500MCG/NS250ML(*CRX 2,500 MCG/250 ML BAG 17.5 MCG IV CONT (22:00)
[2024-01-23] MEDS: POTASSIUM CHLORIDE 20 MEQ PACKET (FOR LIQUID) PO (22:12)
[2024-01-23 22:24] LABS: Glucose Point of Care 215 mg/dl (65-105)
[2024-01-23 23:16] LABS: Glucose Point of Care 189 mg/dl (65-105)
[2024-01-23] MEDS: MIDAZOLAM HCL (*CRX) 2 MG/2 ML VIAL 4 MG IV PUSH (23:35)
[2024-01-24] VITALS (46 sets, daily range): BP systolic 110–130; BP diastolic 53–63; PULSE 64–92; RESP 24–30; TEMP 36.6–37.2; O2SAT 88–98
[2024-01-24] MEDS: CISATRACURIUM BESYLATE 20 MG/10 ML VIAL 11.2 MG IV PUSH (00:18)
[2024-01-24] MEDS: HYDROCORTISONE SODIUM SUCCINATE 100 MG/2 ML VIAL 50 MG IV PUSH ×4 (00:23→17:29)
[2024-01-24] MEDS: metroNIDAZOLE 500 MG/ISO 100ML 500 MG/100 ML BAG 100 MG IVPB ×3 (00:24→16:22)
[2024-01-24] MEDS: ALBUMIN HUMAN 25% 25 GM/100 ML 100 ML IVPB ×2 (00:24→06:14)
[2024-01-24] MEDS: CISATRACURIUM BESYLATE 200 MG in DEXTROSE 5% 80 ML 6.71 ML IV CONT (00:45)
[2024-01-24 01:16] LABS: Glucose Point of Care 178 mg/dl (65-105)
[2024-01-24 01:16] LABS: Glucose Point of Care 209 mg/dl (65-105)
[2024-01-24 01:18] LABS: Hematocrit 23.6 % (37.0-47.0); Hemoglobin 7.6 g/dL (12.0-15.0)
[2024-01-24 01:28] LABS: Anion Gap 12 mmol/L (4-12); Blood Urea Nitrogen 93 mg/dL (7-17); Calcium 7.2 mg/dL (8.4-10.2); Carbon Dioxide 28 mmol/L (22-30); Chloride 104 mmol/L (98-107); Estimated CRCL calculation 16 ml/min; Estimated Glomerular Filt Rate 17; Glucose 199 mg/dL (65-110); Sodium 144 mmol/L (137-145)
[2024-01-24 02:23] LABS: Glucose Point of Care 235 mg/dl (65-105)
[2024-01-24] MEDS: IPRATROPIUM 0.5 MG/ALBUTEROL SULFATE 2.5 MG AMPUL.NEB 3 ML INHALATION ×4 (02:54→19:46)
[2024-01-24 03:23] LABS: Glucose Point of Care 255 mg/dl (65-105)
[2024-01-24 04:56] LABS: Glucose Point of Care 291 mg/dl (65-105)
[2024-01-24 04:56] LABS: Glucose Point of Care 322 mg/dl (65-105)
[2024-01-24 05:01] LABS: Hematocrit 23.1 % (37.0-47.0); Hemoglobin 7.3 g/dL (12.0-15.0); Mean Corpuscular HGB Conc 31.6 g/dl (32-36); Mean Corpuscular Hemoglobin 31.5 pg (26-34); Mean Corpuscular Volume 99.6 fl (80-100); Mean Platelet Volume 11.9 fl (7.4-10.4); Platelet Count Result 209 k/mm3 (150-375); Red Blood Count 2.32 M/mm3 (4.2-5.4); Red Cell Distribution Width 15.3 % (11.5-14.5); White Blood Count 19.9 K/mm3 (4.5-10.0)
[2024-01-24 05:12] LABS: Alanine Aminotransferase 21 U/L (6-35); Albumin Level 4.2 g/dL (3.5-5.1); Alkaline Phosphatase 87 U/L (38-126); Anion Gap 13 mmol/L (4-12); Aspartate Amino Transferase 55 U/L (14-36); Bilirubin,Total 0.7 mg/dL (0.2-1.3); Blood Urea Nitrogen 96 mg/dL (7-17); Calcium 7.1 mg/dL (8.4-10.2); Carbon Dioxide 28 mmol/L (22-30); Chloride 103 mmol/L (98-107); Estimated CRCL calculation 15 ml/min; Estimated Glomerular Filt Rate 16; Glucose 308 mg/dL (65-110); Magnesium 2.3 mg/dL (1.6-2.3); Partial Thromboplastin Time 68.9 Seconds (22.3-36.8); Potassium 4.3 mmol/L (3.4-5.0); Sodium 144 mmol/L (137-145)
[2024-01-24 05:41] LABS: Alveolar/Arterial O2 Gradient 372.2 mmHg; Base Excess ABG -0.1 mEq/l (+/-2.0); Carboxyhemoglobin 0.5 % THb (0-2.0); Fractional Inspired Oxygen 70 %; HCO3 ABG 26.3 mEq/l (22.0-26.0); Methemoglobin ABG 0.2 %THb (0-1.5); Oxygen Content ABG 11.3 %vol (16.0-22.0); Oxygen Saturation ABG 92.6 % (95.0-100.0); Oxyhemoglobin 91.8 % THb (90.0-100.0); PCO2 ABG 52.6 mmHg (35.0-45.0); PO2 ABG 70.4 mmHg (80.0-100.0); PO2 FiO2 Ratio Arterial Blood 1.01 %; Reduced Hemoglobin 7.5 %THb (0-5.0); Total Hemoglobin 8.7 g/dL (12.0-18.0); pH ABG 7.317 (7.350-7.450)
[2024-01-24 05:42] LABS: Device VENTILATOR; Modified Allen's Test Pass; Site Drawn RIGHT RADIAL
[2024-01-24 05:43] LABS: Arterial Blood Gas PEEP 12 cmH2O; Arterial Blood Gas Tidal Volume 360 ml; Arterial Blood Gas Vent Mode CMV; Arterial Blood Gas Ventilator rate 24 /MIN
[2024-01-24] MEDS: LEVOTHYROXINE SODIUM 112 MCG TABLET PO (06:15)
[2024-01-24] MEDS: HEPARIN SODIUM 5,000 UNITS/ML VIAL 2500 UNITS IV PUSH (06:17)
[2024-01-24 06:30] LABS: Glucose Point of Care 297 mg/dl (65-105)
[2024-01-24 07:12] LABS: Glucose Point of Care 280 mg/dl (65-105)
--- NOTE | 2024-01-24 07:57 | WPDINTPN ---
Progress Note: A&P Assessment and Plan (1) Acute respiratory failure: Code(s): J96.00 - Acute respiratory failure, unspecified whether with hypoxia or hypercapnia Status: Acute Assessment and Plan: Acute Respiratory failure secondary to pneumonia and PE. Patient appears to have developed ARDS Patient had became CPAP dependent 100% FiO2. Forty of Lasix given IV last night without any significant improvement. Patient does not have any edema on lower extremity suggestive of heart failure. Echo reviewed. 01/20 patient intubated for discussion with the patient and her daughter. ABG reviewed and low tidal volume ventilation. PEEP set at 12 tidal volume at 300 mL. FiO2 is 100%. Increase respiratory rate to 26 Post intubation patient was coughing and gagging leading to desaturation hence was given rocuronium. Patient was started on Nimbex infusion along with sedation at this time. Patient was placed in prone position 01/21 patient was switched to supine position around 2:00 a.m.. She is a 70% FiO2 and 12 of PEEP 01/22 on 55% FiO2 and 12 of PEEP. ABG reviewed. Decrease respiratory rate to 24. Continue to wean FiO2. CT scan done yesterday showed IMPRESSION: Worsening respiratory status with bibasilar consolidation and interstitial thickening with patchy groundglass opacification bilaterally -findings suggesting ARDS. 01/23 overnight patient had increased oxygen requirement. Yesterday morning neuromuscular yasemin infusion was discontinued but patient later was a synchronous with the ventilator with coughing and gagging. Sedation was increased but did not fix the problem patient desaturated. Nimbex infusion was restarted. This morning she is on 70% FiO2 and DrBrisa Wean FiO2 to 65% this morning Chest x-ray reviewed and advance ET tube by 1 cm ABG reviewed increase ventilator rate to 26 Continue Low tidal volume ventilation and permissive hypercapnia and permissive respiratory acidosis Patient was given Lasix IV yesterday for any possible component pulmonary edema although patient does not have any sign of volume overload with no edema in the legs, echo also reviewed Continue Bronchodilators Treatment of pneumonia and PE as above Chest x-ray reviewed Patient started on course of steroids due to severity of pneumonia and ARDS (2) Septic shock: Code(s): A41.9 - Sepsis, unspecified organism; R65.21 - Severe sepsis with septic shock Status: Acute Assessment and Plan: Secondary to pneumonia 01/17: Patient presented with hypotension, elevated lactic acid levels, fevers, cough, hypoxia -received 30 mL/kg IV fluids -started on Levophed via femoral central line - Off IV fluids vasopressors now -continue azithromycin and ceftriaxone (01/17) -01/17: Blood cultures have been obtained and negative till now MRSA screen negative Urine pneumococcal antigen negative Urine Legionella antigen pending Influenza RSV and COVID PCR negative (3) Community acquired pneumonia: Qualifiers: Laterality: left Lung location: lower lobe of lung Qualified Code(s): J18.9 - Pneumonia, unspecified organism Code(s): J18.9 - Pneumonia, unspecified organism Status: Acute Assessment and Plan: See above (4) Diabetes: Code(s): E11.9 - Type 2 diabetes mellitus without complications Status: Acute Assessment and Plan: Uncontrolled Increase Lantus to twice a day Continue insulin infusion (5) Acute kidney injury: Code(s): N17.9 - Acute kidney failure, unspecified Status: Acute Assessment and Plan: Patient initially presented with Acute kidney injury likely related to hypotension, septic shock She was adequately fluid-resuscitated and came off of IV fluids Creatinine normalized initially Patient did receive contrast for CTA Creatinine increased post intubation. 01/22 Lasix IV x1 Patient was given 25% albumin and will give 5% albumin. Will avoid liberal fluids due to patient's respiratory status. Patient is positive her I/O balance Consult nephrology -continue to monitor urine output, electrolytes and renal function (6) Pulmonary embolism: Code(s): I26.99 - Other pulmonary embolism without acute cor pulmonale Status: Acute Assessment and Plan: Continue heparin infusion small PE Venous Dopplers negative 01/17: CT chest abdomen and pelvis IMPRESSION: Nonocclusive acute subsegmental pulmonary embolus in the left lower lobe. Very small clot burden. No evidence of right heart strain. Left lower lobe pneumonia. Mild hepatomegaly. Possible cystitis. Otherwise, no acute abdominopelvic process detected. Echo Summary 1. Left ventricular systolic function is normal, estimated at 55-60%. 2. There is mildly increased left ventricular wall thickness. 3. The left ventricular diastolic function is grade I diastolic dysfunction. 4. There is trace mitral valve regurgitation. 5. There is trace tricuspid valve regurgitation. 6. No pulmonary hypertension, estimated pulmonary arterial systolic pressure is 41 mmHg. 7. Right ventricular systolic function is normal. 8. Right ventricular chamber dimension is normal. (7) Electrolyte abnormality: Code(s): E87.8 - Other disorders of electrolyte and fluid balance, not elsewhere classified Status: Acute Assessment and Plan: Hyperkalemia resolved with treatment. Monitor electrolytes (8) Diverticulitis: Code(s): K57.92 - Diverticulitis of intestine, part unspecified, without perforation or abscess without bleeding Status: Acute Assessment and Plan: CT abdomen pelvis showed Mural thickening within the rectosigmoid colon with multiple diverticula and prominence of the vasa recta, possibly early diverticulitis. Interval development of perihepatic fluid, compared with previous study. Currently on Rocephin and Flagyl. Plan DVT prophylaxis: Heparin infusion Stress ulcer prophylaxis: Protonix IV q.12 hours Nutrition:. Continue tube feeds. Code Status: 01/20 I spoke to patient prior to intubation about cold and goals of care. She stated that she would like 1-2 rounds of resuscitation in case of cardiac arrest to see if she can be brought back but does not want prolonged resuscitation efforts. She also states that if she is unable to come off the ventilator in 2 weeks time she would not want a feeding tube and tracheostomy for long-term mechanical ventilation. Patient's daughter was at bedside and in agreement with patient's wishes 01/22 patient's son updated him patient's current status including changes in the respiratory status, worsening renal function. I answered all questions. Critical Care Time Spent: 45 minutes Due to a high probability of clinically significant, life threatening deterioration, the patient required my highest level of preparedness to intervene emergently and I personally spent this critical care time directly and personally managing the patient. This critical care time included obtaining a history; examining the patient; pulse oximetry; ordering and review of studies; arranging urgent treatment with development of a management plan; evaluation of patient's response to treatment; frequent reassessment; and discussions with other providers. It was exclusive of separately billable procedures and treating other patients and teaching time. Please see Assessment and Plan section and the rest of the note for further information on patient assessment and treatment This dictation may have been done utilizing a voice recognition system. Attempts have been made to correct errors. However, there may be uncorrected grammatical, spelling, and recognitions errors present. Subjective Date/time seen: 01/24/24 Overnight events reviewed. Low-grade fever yesterday evening Continues to be on mechanical ventilation 70% FiO2 and 12 peep Yesterday paralytic was discontinued but later patient became a synchronous with the ventilator with drop in saturation. This was not fixed by increasing sedation. Nimbex had to be restarted Continues to be sedated with Versed fentanyl and paralyzed with Nimbex Other Vitals acceptable Acceptable urine output over last 24 hours Interval history: 68yo female with HTN, CHF, DM and HLD with PE pneumonia acute respiratory failure ARDS acute kidney injury Review of Systems Review of Systems: ROS unobtainable: Yes unobtainable due to endotracheal tube, unobtainable due to medical condition and unobtainable due to mental status Exam Narrative: General: intubated sedated and chemically paralyzed HEENT:? Pupils equal and reactive, sclerae sclera, ET tube in place Neck:? Supple Respiratory:? Coarse breath sounds bilaterally L > R. no wheezing, Cardiac:? S1-S2 was normal, regular rate and rhythm Abdomen:? Soft, distended, periumbilical tenderness to palpation, normoactive bowel sounds Extremities:? No edema, palpable pedal pulses Neuro:? Patient is intubated sedated and chemically paralyzed,, PERRL Skin:? Warm and dry Objective Data Vital Signs Vital Signs: Vital Signs - 24 hr 01/23/24 07:58 01/23/24 08:00 01/23/24 08:00 Temperature Pulse Rate 90 92 Respiratory Rate 28 H 28 H Blood Pressure 116/55 L Pulse Oximetry Oxygen Delivery Fraction of Inspired Oxygen 55 01/23/24 08:00 01/23/24 08:00 01/23/24 08:43 Temperature 37.5 C Pulse Rate 91 91 96 Respiratory Rate 28 H 24 H Blood Pressure 116/55 L Pulse Oximetry 93 94 Oxygen Delivery Mechanical Ventilation Fraction of Inspired Oxygen 55 01/23/24 09:00 01/23/24 08:00 01/23/24 09:35 Temperature Pulse Rate 97 91 99 Respiratory Rate 14 31 H Blood Pressure 135/69 Pulse Oximetry Oxygen Delivery Fraction of Inspired Oxygen 01/23/24 09:36 01/23/24 09:50 01/23/24 10:00 Temperature Pulse Rate 97 81 85 Respiratory Rate 29 H 29 H 22 H Blood Pressure Pulse Oximetry Oxygen Delivery Fraction of Inspired Oxygen 01/23/24 10:00 01/23/24 10:01 01/23/24 10:00 Temperature Pulse Rate 85 84 85 Respiratory Rate 24 H 28 H Blood Pressure 119/59 L Pulse Oximetry Oxygen Delivery Fraction of Inspired Oxygen 01/23/24 10:00 01/23/24 11:06 01/23/24 11:41 Temperature 37.5 C Pulse Rate 85 81 80 Respiratory Rate 20 26 H Blood Pressure 119/59 L Pulse Oximetry 94 93 95 Oxygen Delivery Mechanical Ventilation Mechanical Ventilation Fraction of Inspired Oxygen 55 55 01/23/24 11:51 01/23/24 11:56 01/23/24 12:00 Temperature Pulse Rate 79 80 Respiratory Rate 26 H 24 H Blood Pressure 117/59 L Pulse Oximetry Oxygen Delivery Fraction of Inspired Oxygen 55 01/23/24 12:00 01/23/24 12:00 01/23/24 12:00 Temperature 37.6 C Pulse Rate 80 81 82 Respiratory Rate 24 H 25 H Blood Pressure 111/58 L Pulse Oximetry 94 Oxygen Delivery Fraction of Inspired Oxygen 01/23/24 13:25 01/23/24 13:29 01/23/24 13:40 Temperature Pulse Rate 85 85 84 Respiratory Rate 24 H 24 H Blood Pressure Pulse Oximetry 92 Oxygen Delivery Mechanical Ventilation Fraction of Inspired Oxygen 55 01/23/24 14:00 01/23/24 14:00 01/23/24 14:00 Temperature Pulse Rate 85 85 83 Respiratory Rate 24 H 24 H Blood Pressure Pulse Oximetry Oxygen Delivery Fraction of Inspired Oxygen 01/23/24 14:00 01/23/24 15:59 01/23/24 16:00 Temperature 37.7 C H Pulse Rate 84 82 81 Respiratory Rate 26 H 19 24 H Blood Pressure 112/57 L Pulse Oximetry 93 91 Oxygen Delivery Mechanical Ventilation Fraction of Inspired Oxygen 55 01/23/24 16:00 01/23/24 16:00 01/23/24 16:00 Temperature 37.6 C H Pulse Rate 81 81 Respiratory Rate 24 H 24 H Blood Pressure 113/58 L Pulse Oximetry 93 Oxygen Delivery Fraction of Inspired Oxygen 55 01/23/24 16:56 01/23/24 16:00 01/23/24 18:00 Temperature Pulse Rate 88 80 82 Respiratory Rate 27 H Blood Pressure Pulse Oximetry 96 Oxygen Delivery Mechanical Ventilation Fraction of Inspired Oxygen 55 01/23/24 18:00 01/23/24 18:00 01/23/24 18:00 Temperature 37.7 C H Pulse Rate 81 81 82 Respiratory Rate 27 H 22 H Blood Pressure 111/56 L Pulse Oximetry 89 L Oxygen Delivery Fraction of Inspired Oxygen 01/23/24 18:09 01/23/24 20:00 01/23/24 20:00 Temperature Pulse Rate 81 81 Respiratory Rate 24 H 24 H Blood Pressure Pulse Oximetry Oxygen Delivery Fraction of Inspired Oxygen 60 01/23/24 20:37 01/23/24 20:44 01/23/24 22:00 Temperature Pulse Rate 83 87 83 Respiratory Rate 24 H 30 H Blood Pressure Pulse Oximetry 90 Oxygen Delivery Mechanical Ventilation Fraction of Inspired Oxygen 60 01/23/24 22:00 01/23/24 22:00 01/23/24 23:28 Temperature Pulse Rate 83 83 84 Respiratory Rate 30 H 30 H Blood Pressure Pulse Oximetry 87 L Oxygen Delivery Mechanical Ventilation Fraction of Inspired Oxygen 60 01/23/24 23:39 01/24/24 00:00 01/24/24 00:45 Temperature Pulse Rate 79 81 Respiratory Rate 30 H 24 H Blood Pressure 116/59 L Pulse Oximetry 90 Oxygen Delivery Fraction of Inspired Oxygen 80 01/24/24 00:00 01/24/24 00:00 01/24/24 01:00 Temperature Pulse Rate 79 79 92 Respiratory Rate 30 H 30 H 24 H Blood Pressure 123/63 Pulse Oximetry Oxygen Delivery Fraction of Inspired Oxygen 01/24/24 01:15 01/23/24 20:00 01/23/24 20:00 Temperature Pulse Rate 92 Respiratory Rate 24 H Blood Pressure 126/62 Pulse Oximetry Oxygen Delivery Mechanical Ventilation Fraction of Inspired Oxygen 60 60 01/23/24 20:00 01/23/24 20:00 01/23/24 22:00 Temperature 37.9 C H 37.3 C Pulse Rate 83 82 92 Respiratory Rate 24 H 30 H Blood Pressure 115/57 L 121/62 Pulse Oximetry 91 92 Oxygen Delivery Fraction of Inspired Oxygen 01/23/24 22:00 01/24/24 00:00 01/24/24 00:00 Temperature Pulse Rate 83 Respiratory Rate Blood Pressure Pulse Oximetry Oxygen Delivery Mechanical Ventilation Fraction of Inspired Oxygen 80 80 01/24/24 00:00 01/24/24 02:00 01/24/24 02:00 Temperature Pulse Rate 80 84 85 Respiratory Rate 24 H Blood Pressure Pulse Oximetry Oxygen Delivery Fraction of Inspired Oxygen 01/24/24 02:00 01/24/24 01:30 01/24/24 00:30 Temperature 37.2 C Pulse Rate 85 88 85 Respiratory Rate 24 H 24 H 24 H Blood Pressure 115/56 L 112/58 L Pulse Oximetry 95 Oxygen Delivery Fraction of Inspired Oxygen 01/24/24 01:30 01/24/24 01:45 01/24/24 02:00 Temperature 37.1 C 37.1 C 37.0 C Pulse Rate 89 88 84 Respiratory Rate 24 H 24 H 24 H Blood Pressure 115/56 L 112/55 L Pulse Oximetry 97 97 96 Oxygen Delivery Fraction of Inspired Oxygen 01/24/24 02:53 01/24/24 02:54 01/24/24 02:00 Temperature Pulse Rate 76 84 85 Respiratory Rate 24 H 24 H Blood Pressure 112/55 L Pulse Oximetry 95 Oxygen Delivery Mechanical Ventilation Fraction of Inspired Oxygen 70 01/24/24 04:00 01/24/24 04:00 01/24/24 04:00 Temperature Pulse Rate 88 88 88 Respiratory Rate 24 H 24 H 24 H Blood Pressure 111/55 L Pulse Oximetry Oxygen Delivery Fraction of Inspired Oxygen 01/24/24 04:00 01/24/24 04:00 01/24/24 04:00 Temperature 37.1 C Pulse Rate 88 Respiratory Rate 24 H Blood Pressure 111/55 L Pulse Oximetry 94 Oxygen Delivery Mechanical Ventilation Fraction of Inspired Oxygen 70 70 01/24/24 05:23 01/24/24 06:00 01/24/24 06:00 Temperature Pulse Rate 80 73 73 Respiratory Rate 24 H 24 H Blood Pressure Pulse Oximetry 94 Oxygen Delivery Mechanical Ventilation Fraction of Inspired Oxygen 70 01/24/24 06:00 01/24/24 04:00 01/24/24 06:00 Temperature 37.1 C Pulse Rate 73 86 73 Respiratory Rate 24 H 24 H Blood Pressure 114/58 L 114/58 L Pulse Oximetry 95 Oxygen Delivery Fraction of Inspired Oxygen 01/24/24 06:00 01/24/24 07:30 01/24/24 07:30 Temperature Pulse Rate 73 75 75 Respiratory Rate 24 H Blood Pressure Pulse Oximetry 96 Oxygen Delivery Mechanical Ventilation Fraction of Inspired Oxygen 65 01/24/24 07:55 Temperature Pulse Rate 81 Respiratory Rate 24 H Blood Pressure Pulse Oximetry Oxygen Delivery Fraction of Inspired Oxygen Intake/Output Intake/Output: Intake & Output 01/21/24 01/22/24 01/23/24 01/24/24 23:59 23:59 23:59 23:59 Intake Total 2560.8 2392.7 2688.9 1249.7 Output Total 3078 521 9076 450 Balance 1110.8 1842.7 1688.9 799.7 Meds/Results Medications: Active Medications Generic Name Dose Route Start Last Admin Trade Name Freq PRN Reason Stop Dose Admin Acetaminophen 650 mg 01/20/24 10:08 01/20/24 10:29 Acetaminophen 325 Mg Tablet PO 650 mg Q4H PRN Administration Mild Pain (1-3) or Fever Albuterol/Ipratropium 3 ml 01/22/24 14:00 01/24/24 07:30 Ipratropium 0.5 Mg/Albuterol Sulfate 2.5 Mg Ampul.Neb 3 Ml INHALATION 3 ml Q6HRT EDMOND Administration Aspirin 81 mg 01/19/24 08:00 01/23/24 08:10 Aspirin 81 Mg Chewable Tablet PO 81 mg DAILY@0800 EDMOND Administration Atorvastatin Calcium 40 mg 01/19/24 09:00 01/23/24 08:10 Atorvastatin 40 Mg Tablet PO 40 mg DAILY EDMOND Administration Clopidogrel Bisulfate 75 mg 01/19/24 09:00 01/23/24 08:10 Clopidogrel Bisulfate 75 Mg Tablet PO 75 mg DAILY EDMOND Administration Dextrose 12.5 gm 01/18/24 23:28 Dextrose 50% 25 Gm/50 Ml Syringe IV PUSH PRN PRN Hypoglycemia Protocol Glucagon 1 mg 01/18/24 23:28 Glucagon For Inj 1 Mg Vial IM PRN PRN Hypoglycemia Protocol Glucose 15 gm 01/18/24 23:28 Glucose Oral Gel 15 Gm Of Glucse In 37.5 Gm Tube PO PRN PRN Hypoglycemia Protocol Heparin Sodium (Porcine) 4,500 units 01/18/24 23:25 Heparin Sodium 5,000 Units/Ml Vial IV PUSH PRN PRN aPTT less than 55 seconds Heparin Sodium (Porcine) 2,500 units 01/18/24 23:25 01/24/24 06:17 Heparin Sodium 5,000 Units/Ml Vial IV PUSH 2,500 units PRN PRN Administration aPTT 55 - 70 seconds Hydrocortisone Sodium Succinate 50 mg 01/21/24 12:05 01/24/24 06:14 Hydrocortisone Sodium Succinate 100 Mg/2 Ml Vial IV PUSH 01/26/24 12:04 50 mg Q6H EDMOND Administration Ceftriaxone Sodium 1 gm in 50 mls @ 100 mls/hr 01/19/24 17:00 01/23/24 17:56 Rocephin 1 Gm/Ns 50 Ml IVPB Infused Q24H EDMOND Infusion Heparin Sodium/Dextrose 25,000 units in 250 mls @ 10 mls/hr 01/18/24 23:25 01/24/24 06:18 Heparin Sodium/D5w 100 Units/Ml IV CONT 1,000 units/hr .Q24H EDMOND 10 mls/hr Titration Protocol 1,000 UNITS/HR Dextrose 1,000 mls @ 100 mls/hr 01/18/24 23:28 Dextrose 5% 1,000 Ml IVPB PRN PRN Hypoglycemia Protocol Fentanyl Citrate 2,500 mcg in 250 mls @ 17.2 mls/hr 01/21/24 07:40 01/24/24 06:00 Fentanyl 2,500 Mcg/Ns 250 Ml IV CONT 175 mcg/hr .[id number] EDMOND 17.5 mls/hr Titration Protocol 172 MCG/HR Midazolam HCl 100 mg in 100 mls @ 8 mls/hr 01/21/24 07:40 01/24/24 06:00 Versed 100 Mg/Ns 100 Ml IV CONT 8 mg/hr .[id number] EDMOND 8 mls/hr Titration Protocol 8 MG/HR Albumin Human 100 mls @ 60 mls/hr 01/22/24 12:00 01/24/24 06:14 Albutein IVPB 01/24/24 11:59 60 mls/hr Q6HR EDMOND Administration Norepinephrine Bitartrate 8 mg in 250 mls @ 9.375 mls/hr 01/22/24 08:05 01/23/24 10:54 Levophed 8 Mg/D5w 250 Ml IV CONT Not Given .Q24H EDMOND Protocol 5 MCG/MIN Metronidazole 500 mg in 100 mls @ 100 mls/hr 01/23/24 08:00 01/24/24 01:24 Flagyl 500 Mg/Iso Soln 100 Ml IVPB Infused Q8H EDMOND Infusion Insulin Human Regular 100 100 mls @ 6 mls/hr 01/23/24 08:15 01/24/24 07:00 units/ Sodium Chloride IV CONT 6 units/hr .[id number] EDMOND 6 mls/hr Titration Protocol 6 UNITS/HR Cisatracurium Besylate 200 mg/ 100 mls @ 4.476 mls/hr 01/24/24 00:05 01/24/24 06:00 Dextrose IV CONT 2 mcg/kg/min .[id number] EDMOND 4.48 mls/hr Titration Protocol 2 MCG/KG/MIN Insulin Aspart 4 - 8 units 01/19/24 12:00 01/23/24 04:27 Insulin Aspart (*Bkc) 100 Units/Ml SUB-Q 8 units Q4H EDMOND Administration Protocol Levothyroxine Sodium 112 mcg 01/19/24 06:30 01/24/24 06:15 Levothyroxine Sodium 112 Mcg Tablet PO 112 mcg DAILY@0630 EDMOND Administration Midazolam HCl 2 mg 01/21/24 07:40 01/23/24 09:38 Midazolam Hcl (*Crx) 2 Mg/2 Ml Vial IV PUSH 2 mg Q5M PRN Administration ventilator asynchrony Midazolam HCl 4 mg 01/21/24 09:35 01/23/24 23:35 Midazolam Hcl (*Crx) 2 Mg/2 Ml Vial IV PUSH 4 mg PRN PRN Administration Sedation Morphine Sulfate 1 mg 01/19/24 10:32 01/20/24 20:04 Morphine Sulfate (*Crx) 2 Mg/Ml Inj IV PUSH 1 mg Q4H PRN Administration Pain Rated 6 or Greater Multi-Ingred Cream/Lotion/Oil/Oint 1 applic 01/21/24 09:00 01/23/24 20:11 Mineral Oil/White Petrolatum Ointment EACH EYE 1 applic Q12HR EDMOND Administration Ondansetron HCl 4 mg 01/18/24 22:13 Ondansetron Inj 4 Mg/2 Ml Vial IV PUSH Q4H PRN Nausea Pantoprazole Sodium 40 mg 01/19/24 09:00 01/23/24 20:11 Pantoprazole Sodium Iv 40 Mg Vial IV PUSH 40 mg Q12HR EDMOND Administration Polyethylene Glycol 17 gm 01/24/24 09:00 Polyethylene Glycol 3350 17 Gm Powd.Pack PO QAM EDMOND Sertraline HCl 100 mg 01/19/24 09:00 01/22/24 08:21 Sertraline Hcl 50 Mg Tablet PO 100 mg DAILY EDMOND Administration Radiology Results: ITS Impressions Chest/Abdomen/Pelvis CTA 01/18/24 18:30 IMPRESSION: Nonocclusive acute subsegmental pulmonary embolus in the left lower lobe. Very small clot burden. No evidence of right heart strain. Left lower lobe pneumonia. Mild hepatomegaly. Possible cystitis. Otherwise, no acute abdominopelvic process detected. Head CT 01/19/24 05:47 Impression: No intracranial hemorrhage, mass, or acute infarct. Atrophy and chronic white matter changes, as above. Venous Doppler Study 01/19/24 15:06 IMPRESSION: Negative bilateral lower extremity venous US. No deep vein thrombosis. Abdomen X-Ray 01/21/24 08:25 IMPRESSION: Nasogastric tube projects over the upper abdomen. Chest/Abdomen/Pelvis CT 01/22/24 12:43 IMPRESSION: Worsening respiratory status with bibasilar consolidation and interstitial thickening with patchy groundglass opacification bilaterally -findings suggesting ARDS. Mural thickening within the rectosigmoid colon with multiple diverticula and prominence of the vasa recta, possibly early diverticulitis. Interval development of perihepatic fluid, compared with previous study. Chest X-Ray 01/24/24 06:45 IMPRESSION: 1. Diffuse bilateral lung disease with worsening consolidation in the left lower lung zone consistent with multifocal pneumonia and/or ARDS. Labs Labs: Laboratory Results - last 24 hr 01/23/24 01/23/24 01/23/24 05:44 08:09 09:28 WBC RBC Hgb Hct MCV MCH MCHC RDW Plt Count MPV APTT Puncture Site ABG pH ABG pCO2 ABG pO2 ABG PO2/FiO2 Ratio ABG HCO3 ABG O2 Saturation ABG O2 Content ABG Base Excess A-a Gradient Oxyhemoglobin Carboxyhemoglobin Methemoglobin Reduced Hemoglobin Total Hemoglobin O2 Delivery Device O2 Liters/Min Minute Volume Vent Rate Vent Mode FiO2 Tidal Volume PEEP Peak Inspir Pressure Pressure Support Sodium Potassium Chloride Carbon Dioxide Anion Gap BUN Creatinine Estim Creat Clear Calc Estimated GFR Glucose POC Capillary Glucose 416 H 364 H Calcium Magnesium Total Bilirubin AST ALT Alkaline Phosphatase Total Creatine Kinase 188 H Total Protein Albumin 01/23/24 01/23/24 01/23/24 10:31 11: 11:29 WBC RBC Hgb Hct MCV MCH MCHC RDW Plt Count MPV APTT Puncture Site ABG pH ABG pCO2 ABG pO2 ABG PO2/FiO2 Ratio ABG HCO3 ABG O2 Saturation ABG O2 Content ABG Base Excess A-a Gradient Oxyhemoglobin Carboxyhemoglobin Methemoglobin Reduced Hemoglobin Total Hemoglobin O2 Delivery Device O2 Liters/Min Minute Volume Vent Rate Vent Mode FiO2 Tidal Volume PEEP Peak Inspir Pressure Pressure Support Sodium 144 Potassium 3.9 Chloride 102 Carbon Dioxide 30 Anion Gap 12 BUN 77 H D Creatinine 2.40 H Estim Creat Clear Calc 18 Estimated GFR 20 L Glucose 291 H POC Capillary Glucose 341 H 310 H Calcium 7.5 L Magnesium Total Bilirubin AST ALT Alkaline Phosphatase Total Creatine Kinase Total Protein Albumin 01/23/24 01/23/24 01/23/24 12:31 13:31 14:30 WBC RBC Hgb Hct MCV MCH MCHC RDW Plt Count MPV APTT Puncture Site ABG pH ABG pCO2 ABG pO2 ABG PO2/FiO2 Ratio ABG HCO3 ABG O2 Saturation ABG O2 Content ABG Base Excess A-a Gradient Oxyhemoglobin Carboxyhemoglobin Methemoglobin Reduced Hemoglobin Total Hemoglobin O2 Delivery Device O2 Liters/Min Minute Volume Vent Rate Vent Mode FiO2 Tidal Volume PEEP Peak Inspir Pressure Pressure Support Sodium Potassium Chloride Carbon Dioxide Anion Gap BUN Creatinine Estim Creat Clear Calc Estimated GFR Glucose POC Capillary Glucose 233 H 219 H 192 H Calcium Magnesium Total Bilirubin AST ALT Alkaline Phosphatase Total Creatine Kinase Total Protein Albumin 01/23/24 01/23/24 01/23/24 15:32 15:52 16:51 WBC RBC Hgb Hct MCV MCH MCHC RDW Plt Count MPV APTT Puncture Site ABG pH ABG pCO2 ABG pO2 ABG PO2/FiO2 Ratio ABG HCO3 ABG O2 Saturation ABG O2 Content ABG Base Excess A-a Gradient Oxyhemoglobin Carboxyhemoglobin Methemoglobin Reduced Hemoglobin Total Hemoglobin O2 Delivery Device O2 Liters/Min Minute Volume Vent Rate Vent Mode FiO2 Tidal Volume PEEP Peak Inspir Pressure Pressure Support Sodium 144 Potassium 3.8 Chloride 102 Carbon Dioxide 29 Anion Gap 13 H BUN 82 H Creatinine 2.70 H Estim Creat Clear Calc 16 Estimated GFR 17 L Glucose 254 H POC Capillary Glucose 249 H 258 H Calcium 7.4 L Magnesium Total Bilirubin AST ALT Alkaline Phosphatase Total Creatine Kinase Total Protein Albumin 01/23/24 01/23/24 01/23/24 17:33 18:35 20:02 WBC RBC Hgb Hct MCV MCH MCHC RDW Plt Count MPV APTT Puncture Site ABG pH ABG pCO2 ABG pO2 ABG PO2/FiO2 Ratio ABG HCO3 ABG O2 Saturation ABG O2 Content ABG Base Excess A-a Gradient Oxyhemoglobin Carboxyhemoglobin Methemoglobin Reduced Hemoglobin Total Hemoglobin O2 Delivery Device O2 Liters/Min Minute Volume Vent Rate Vent Mode FiO2 Tidal Volume PEEP Peak Inspir Pressure Pressure Support Sodium Potassium Chloride Carbon Dioxide Anion Gap BUN Creatinine Estim Creat Clear Calc Estimated GFR Glucose POC Capillary Glucose 245 H 258 H 253 H Calcium Magnesium Total Bilirubin AST ALT Alkaline Phosphatase Total Creatine Kinase Total Protein Albumin 01/23/24 01/23/24 01/23/24 20:13 21:27 22:10 WBC RBC Hgb Hct MCV MCH MCHC RDW Plt Count MPV APTT Puncture Site ABG pH ABG pCO2 ABG pO2 ABG PO2/FiO2 Ratio ABG HCO3 ABG O2 Saturation ABG O2 Content ABG Base Excess A-a Gradient Oxyhemoglobin Carboxyhemoglobin Methemoglobin Reduced Hemoglobin Total Hemoglobin O2 Delivery Device O2 Liters/Min Minute Volume Vent Rate Vent Mode FiO2 Tidal Volume PEEP Peak Inspir Pressure Pressure Support Sodium 144 Potassium 3.8 Chloride 102 Carbon Dioxide 26 Anion Gap 16 H BUN 88 H Creatinine 2.70 H Estim Creat Clear Calc 16 Estimated GFR 17 L Glucose 254 H POC Capillary Glucose 208 H 215 H Calcium 7.5 L Magnesium Total Bilirubin AST ALT Alkaline Phosphatase Total Creatine Kinase Total Protein Albumin 01/23/24 01/24/24 01/24/24 23:09 00:16 00:57 WBC RBC Hgb 7.6 L Hct 23.6 L MCV MCH MCHC RDW Plt Count MPV APTT Puncture Site ABG pH ABG pCO2 ABG pO2 ABG PO2/FiO2 Ratio ABG HCO3 ABG O2 Saturation ABG O2 Content ABG Base Excess A-a Gradient Oxyhemoglobin Carboxyhemoglobin Methemoglobin Reduced Hemoglobin Total Hemoglobin O2 Delivery Device O2 Liters/Min Minute Volume Vent Rate Vent Mode FiO2 Tidal Volume PEEP Peak Inspir Pressure Pressure Support Sodium 144 Potassium 4.0 Chloride 104 Carbon Dioxide 28 Anion Gap 12 BUN 93 H Creatinine 2.70 H Estim Creat Clear Calc 16 Estimated GFR 17 L Glucose 199 H POC Capillary Glucose 189 H 178 H Calcium 7.2 L Magnesium Total Bilirubin AST ALT Alkaline Phosphatase Total Creatine Kinase Total Protein Albumin 01/24/24 01/24/24 01/24/24 01:00 02:17 03:14 WBC RBC Hgb Hct MCV MCH MCHC RDW Plt Count MPV APTT Puncture Site ABG pH ABG pCO2 ABG pO2 ABG PO2/FiO2 Ratio ABG HCO3 ABG O2 Saturation ABG O2 Content ABG Base Excess A-a Gradient Oxyhemoglobin Carboxyhemoglobin Methemoglobin Reduced Hemoglobin Total Hemoglobin O2 Delivery Device O2 Liters/Min Minute Volume Vent Rate Vent Mode FiO2 Tidal Volume PEEP Peak Inspir Pressure Pressure Support Sodium Potassium Chloride Carbon Dioxide Anion Gap BUN Creatinine Estim Creat Clear Calc Estimated GFR Glucose POC Capillary Glucose 209 H 235 H 255 H Calcium Magnesium Total Bilirubin AST ALT Alkaline Phosphatase Total Creatine Kinase Total Protein Albumin 01/24/24 01/24/24 01/24/24 04:16 04:50 04:52 WBC 19.9 H RBC 2.32 L Hgb 7.3 L Hct 23.1 L MCV 99.6 MCH 31.5 MCHC 31.6 L RDW 15.3 H Plt Count 209 MPV 11.9 H APTT 68.9 H Puncture Site ABG pH ABG pCO2 ABG pO2 ABG PO2/FiO2 Ratio ABG HCO3 ABG O2 Saturation ABG O2 Content ABG Base Excess A-a Gradient Oxyhemoglobin Carboxyhemoglobin Methemoglobin Reduced Hemoglobin Total Hemoglobin O2 Delivery Device O2 Liters/Min Minute Volume Vent Rate Vent Mode FiO2 Tidal Volume PEEP Peak Inspir Pressure Pressure Support Sodium 144 Potassium 4.3 Chloride 103 Carbon Dioxide 28 Anion Gap 13 H BUN 96 H Creatinine 2.90 H Estim Creat Clear Calc 15 Estimated GFR 16 L Glucose 308 H POC Capillary Glucose 291 H 322 H Calcium 7.1 L Magnesium 2.3 Total Bilirubin 0.7 AST 55 H ALT 21 Alkaline Phosphatase 87 Total Creatine Kinase Total Protein 7.0 Albumin 4.2 01/24/24 01/24/24 01/24/24 05:28 06:10 07:05 WBC RBC Hgb Hct MCV MCH MCHC RDW Plt Count MPV APTT Puncture Site Right radial ABG pH 7.317 L ABG pCO2 52.6 H ABG pO2 70.4 L ABG PO2/FiO2 Ratio 1.01 ABG HCO3 26.3 H ABG O2 Saturation 92.6 L ABG O2 Content 11.3 L ABG Base Excess -0.1 A-a Gradient 372.2 Oxyhemoglobin 91.8 Carboxyhemoglobin 0.5 Methemoglobin 0.2 Reduced Hemoglobin 7.5 H Total Hemoglobin 8.7 L O2 Delivery Device Ventilator O2 Liters/Min Not Reportable Minute Volume Not Reportable Vent Rate 24 Vent Mode Cmv FiO2 70 Tidal Volume 360 PEEP 12 Peak Inspir Pressure Not Reportable Pressure Support Not Reportable Sodium Potassium Chloride Carbon Dioxide Anion Gap BUN Creatinine Estim Creat Clear Calc Estimated GFR Glucose POC Capillary Glucose 297 H 280 H Calcium Magnesium Total Bilirubin AST ALT Alkaline Phosphatase Total Creatine Kinase Total Protein Albumin Quality VTE Prophylaxis VTE prophylaxis: pharmacologic ordered (Heparin GGT per protocol)
[2024-01-24 07:59] LABS: Glucose Point of Care 310 mg/dl (65-105)
[2024-01-24] MEDS: polyethylene glycoL 3350 17 GM POWD.PACK PO (08:21)
[2024-01-24] MEDS: PANTOPRAZOLE SODIUM IV 40 MG VIAL IV PUSH ×2 (08:21→20:16)
[2024-01-24] MEDS: MINERAL OIL/WHITE PETROLATUM OINTMENT 1 APPLIC EACH EYE ×2 (08:22→20:16)
[2024-01-24] MEDS: ATORVASTATIN 40 MG TABLET PO (08:24)
[2024-01-24] MEDS: CLOPIDOGREL BISULFATE 75 MG TABLET PO (08:24)
[2024-01-24] MEDS: CALCIUM GLUC 2,000 MG/NS 100ML 2,000 MG/100 ML BAG 100 MG IVPB (08:24)
[2024-01-24] MEDS: INSULIN GLARGINE (*BKC) 100 UNITS/ML 50 UNITS SUB-Q ×2 (08:24→20:15)
[2024-01-24] MEDS: ALBUMIN HUMAN 5% 25 GM/500 ML BTL IV CONT (08:25)
[2024-01-24] MEDS: ASPIRIN 81 MG CHEWABLE TABLET PO (08:25)
[2024-01-24 08:31] LABS: NT Pro B Type Natriuretic Pept 4420 pg/mL (19.9-100)
[2024-01-24 09:06] LABS: Glucose Point of Care 281 mg/dl (65-105)
[2024-01-24 10:05] LABS: Glucose Point of Care 256 mg/dl (65-105)
[2024-01-24] MEDS: HEPARIN SOD/D5W 100 UNITS/ML 25,000 UNITS/250 ML BAG 10 UNITS IV CONT (10:31)
--- NOTE | 2024-01-24 10:33 | PM.IMPN ---
Progress Note: A&P Assessment and Plan (1) Acute respiratory failure: Code(s): J96.00 - Acute respiratory failure, unspecified whether with hypoxia or hypercapnia Status: Acute Assessment and Plan: Acute Respiratory failure secondary to pneumonia and PE. Patient now appears to have developed ARDS Patient had became CPAP dependent 100% FiO2. Lasix IV given without benefit. Her condition worsened requiring intubation 01/20. Post intubation, patient was coughing and gagging leading to desaturation hence was given rocuronium. Patient was started on Nimbex infusion along with sedation Patient was placed in prone position CT Chest showing concerns for ARDS. Paralytic was stopped but now resumed again. She remains sedated BNP 4420. ABG 7.32/53/70 on MV. Continue Bronchodilators Continue Heparin drip. Continue IV abx. Continue steroids due to severity of pneumonia and ARDS PEEP set at 12. FiO2 is 60%. Wean vent as tolerated. Appreciate forestry extension specialist input (2) Septic shock: Code(s): A41.9 - Sepsis, unspecified organism; R65.21 - Severe sepsis with septic shock Status: Acute Assessment and Plan: Patient presented with cough/SOB and found to have septic shock with HoTN, elevated lactic, fevers and hypoxia Received 30 mL/kg IV fluids and was started on Levophed Off IV fluids and vasopressors now WBC elevated but on steroids. PCT was 17 on admission BCx NGTD. Sputum pending. Continue ceftriaxone (01/17); completed Azithro (3) Community acquired pneumonia: Qualifiers: Laterality: left Lung location: lower lobe of lung Qualified Code(s): J18.9 - Pneumonia, unspecified organism Code(s): J18.9 - Pneumonia, unspecified organism Status: Acute Assessment and Plan: Patient with community-acquired pneumonia RSV, SARS-CoV-2 and influenza PCR negative Continue antibiotics as above (4) Acute kidney injury: Code(s): N17.9 - Acute kidney failure, unspecified Status: Acute Assessment and Plan: Patient presented with YESI likely related to hypotension, septic shock She was adequately fluid-resuscitated and came off of IV fluids Creatinine normalized initially but now back up to 2.9 with drop in urine output 2050->1450->550->1000 with Lasix ->450mL so far today. BUN higher than expected due to steroids. Albumin x1. Hold on IV fluids due to patient's respiratory status and that she is fluid positive Lasix 80mg IV x1 given yesterday Continue to monitor urine output, electrolytes and renal function (5) Diabetes: Code(s): E11.9 - Type 2 diabetes mellitus without complications Status: Acute Assessment and Plan: The patient's blood glucose was reviewed on 01/23 Glucose remains poorly controlled. Continue AccuCheks covering with sliding scale. Hypoglycemia protocol available as needed. Treated with Lantus and Insulin drip. Continue to monitor (6) Pulmonary embolism: Code(s): I26.99 - Other pulmonary embolism without acute cor pulmonale Status: Acute Assessment and Plan: Patient presents with SOB and CTA chest performed CT showing nonocclusive acute subsegmental PE in the left lower lobe with very small clot burden. No evidence of right heart strain. Venous Dopplers negative Echo showing EF 55-60%, grade I diastolic dysfunction. Continue heparin infusion (7) Electrolyte abnormality: Code(s): E87.8 - Other disorders of electrolyte and fluid balance, not elsewhere classified Status: Acute Assessment and Plan: Hyperkalemia resolved with treatment. Monitor electrolytes (8) Diverticulitis: Code(s): K57.92 - Diverticulitis of intestine, part unspecified, without perforation or abscess without bleeding Status: Acute Assessment and Plan: CT abdomen pelvis showed mural thickening within the rectosigmoid colon with multiple diverticula and prominence of the vasa recta, possibly early diverticulitis. Interval development of perihepatic fluid, compared with previous study. Currently on Rocephin. Flagyl added. Plan Anemia - Probably related to above. Hgb did drop from 9 to 7.3. Iron studies normal in October. Follow and transfuse as needed. Liver Fibrosis - Liver fibrosis Fibro score of 0.61 (F3 Advanced Fibrosis). AST trending down o/w LFTs normal. CT scan on admission demonstrates heterogeneous attenuation of the liver that is borderline enlarged. Interval development of perihepatic fluid, when compared with previous study. Follow DVT prophylaxis: Heparin infusion Code Status: Full Subjective Date/time seen: 01/24/24 10:33 Interval history: 68yo female with HTN, CHF, DM and HLD here for cough and SOB. Patient had residual 300mL today. TF held. Was abd breathing overnight. FiO2 increased to 80%. Nimbex resumed overnight. Remains on PEEP 12 but now 60% FiO2. Family in the room and all questions answered. Patient unable to provide hx. Review of Systems Review of Systems: ROS unobtainable: Yes unobtainable due to endotracheal tube Exam Narrative: Tm 100.3 98.0 129/61 74 26 95% MV Gen -intubated and sedated HEENT -ET tube and OG tube secured. Chest -coarse breath sounds anteriorly amd in flanks CV - RRR S1/S2. Telemetry showing no significant dysrhythmia Abd -soft. Obese. Protuberant. Positive bowel sounds. -Pressley secured draining clear yellow urine. Right femoral triple-lumen catheter in place. Ext - No pedal edema Neuro -sedated Skin - Warm and dry Objective Data Vital Signs Vital Signs: Vital Signs - 24 hr 01/23/24 11:06 01/23/24 11:41 01/23/24 11:51 Temperature Pulse Rate 81 80 Respiratory Rate 26 H Blood Pressure Pulse Oximetry 93 95 Oxygen Delivery Mechanical Ventilation Mechanical Ventilation Fraction of Inspired Oxygen 55 55 55 01/23/24 11:56 01/23/24 12:00 01/23/24 12:00 Temperature Pulse Rate 79 80 80 Respiratory Rate 26 H 24 H 24 H Blood Pressure 117/59 L Pulse Oximetry Oxygen Delivery Fraction of Inspired Oxygen 01/23/24 12:00 01/23/24 12:00 01/23/24 13:25 Temperature 99.6 F Pulse Rate 81 82 85 Respiratory Rate 25 H 24 H Blood Pressure 111/58 L Pulse Oximetry 94 Oxygen Delivery Fraction of Inspired Oxygen 01/23/24 13:29 01/23/24 13:40 01/23/24 14:00 Temperature Pulse Rate 85 84 85 Respiratory Rate 24 H 24 H Blood Pressure Pulse Oximetry 92 Oxygen Delivery Mechanical Ventilation Fraction of Inspired Oxygen 55 01/23/24 14:00 01/23/24 14:00 01/23/24 14:00 Temperature 99.8 F H Pulse Rate 85 83 84 Respiratory Rate 24 H 26 H Blood Pressure 112/57 L Pulse Oximetry 93 Oxygen Delivery Fraction of Inspired Oxygen 01/23/24 15:59 01/23/24 16:00 01/23/24 16:00 Temperature Pulse Rate 82 81 81 Respiratory Rate 19 24 H 24 H Blood Pressure Pulse Oximetry 91 Oxygen Delivery Mechanical Ventilation Fraction of Inspired Oxygen 55 01/23/24 16:00 01/23/24 16:00 01/23/24 16:56 Temperature 99.7 F H Pulse Rate 81 88 Respiratory Rate 24 H Blood Pressure 113/58 L Pulse Oximetry 93 96 Oxygen Delivery Mechanical Ventilation Fraction of Inspired Oxygen 55 55 01/23/24 16:00 01/23/24 18:00 01/23/24 18:00 Temperature Pulse Rate 80 82 81 Respiratory Rate 27 H 27 H Blood Pressure Pulse Oximetry Oxygen Delivery Fraction of Inspired Oxygen 01/23/24 18:00 01/23/24 18:00 01/23/24 18:09 Temperature 99.8 F H Pulse Rate 81 82 Respiratory Rate 22 H Blood Pressure 111/56 L Pulse Oximetry 89 L Oxygen Delivery Fraction of Inspired Oxygen 60 01/23/24 20:00 01/23/24 20:00 01/23/24 20:37 Temperature Pulse Rate 81 81 83 Respiratory Rate 24 H 24 H Blood Pressure Pulse Oximetry 90 Oxygen Delivery Mechanical Ventilation Fraction of Inspired Oxygen 60 01/23/24 20:44 01/23/24 22:00 01/23/24 22:00 Temperature Pulse Rate 87 83 83 Respiratory Rate 24 H 30 H 30 H Blood Pressure Pulse Oximetry Oxygen Delivery Fraction of Inspired Oxygen 01/23/24 22:00 01/23/24 23:28 01/23/24 23:39 Temperature Pulse Rate 83 84 Respiratory Rate 30 H Blood Pressure Pulse Oximetry 87 L 90 Oxygen Delivery Mechanical Ventilation Fraction of Inspired Oxygen 60 80 01/24/24 00:00 01/24/24 00:45 01/24/24 00:00 Temperature Pulse Rate 79 81 79 Respiratory Rate 30 H 24 H 30 H Blood Pressure 116/59 L Pulse Oximetry Oxygen Delivery Fraction of Inspired Oxygen 01/24/24 00:00 01/24/24 01:00 01/24/24 01:15 Temperature Pulse Rate 79 92 92 Respiratory Rate 30 H 24 H 24 H Blood Pressure 123/63 126/62 Pulse Oximetry Oxygen Delivery Fraction of Inspired Oxygen 01/23/24 20:00 01/23/24 20:00 01/23/24 20:00 Temperature 100.3 F H Pulse Rate 83 Respiratory Rate 24 H Blood Pressure 115/57 L Pulse Oximetry 91 Oxygen Delivery Mechanical Ventilation Fraction of Inspired Oxygen 60 60 01/23/24 20:00 01/23/24 22:00 01/23/24 22:00 Temperature 99.1 F Pulse Rate 82 92 83 Respiratory Rate 30 H Blood Pressure 121/62 Pulse Oximetry 92 Oxygen Delivery Fraction of Inspired Oxygen 01/24/24 00:00 01/24/24 00:00 01/24/24 00:00 Temperature Pulse Rate 80 Respiratory Rate Blood Pressure Pulse Oximetry Oxygen Delivery Mechanical Ventilation Fraction of Inspired Oxygen 80 80 01/24/24 02:00 01/24/24 02:00 01/24/24 02:00 Temperature Pulse Rate 84 85 85 Respiratory Rate 24 H 24 H Blood Pressure Pulse Oximetry Oxygen Delivery Fraction of Inspired Oxygen 01/24/24 01:30 01/24/24 00:30 01/24/24 01:30 Temperature 99.0 F 98.7 F Pulse Rate 88 85 89 Respiratory Rate 24 H 24 H 24 H Blood Pressure 115/56 L 112/58 L 115/56 L Pulse Oximetry 95 97 Oxygen Delivery Fraction of Inspired Oxygen 01/24/24 01:45 01/24/24 02:00 01/24/24 02:53 Temperature 98.7 F 98.6 F Pulse Rate 88 84 76 Respiratory Rate 24 H 24 H Blood Pressure 112/55 L Pulse Oximetry 97 96 95 Oxygen Delivery Mechanical Ventilation Fraction of Inspired Oxygen 70 01/24/24 02:54 01/24/24 02:00 01/24/24 04:00 Temperature Pulse Rate 84 85 88 Respiratory Rate 24 H 24 H 24 H Blood Pressure 112/55 L Pulse Oximetry Oxygen Delivery Fraction of Inspired Oxygen 01/24/24 04:00 01/24/24 04:00 01/24/24 04:00 Temperature Pulse Rate 88 88 Respiratory Rate 24 H 24 H Blood Pressure 111/55 L Pulse Oximetry Oxygen Delivery Mechanical Ventilation Fraction of Inspired Oxygen 70 01/24/24 04:00 01/24/24 04:00 01/24/24 05:23 Temperature 98.8 F Pulse Rate 88 80 Respiratory Rate 24 H Blood Pressure 111/55 L Pulse Oximetry 94 94 Oxygen Delivery Mechanical Ventilation Fraction of Inspired Oxygen 70 70 01/24/24 06:00 01/24/24 06:00 01/24/24 06:00 Temperature Pulse Rate 73 73 73 Respiratory Rate 24 H 24 H 24 H Blood Pressure 114/58 L Pulse Oximetry Oxygen Delivery Fraction of Inspired Oxygen 01/24/24 04:00 01/24/24 06:00 01/24/24 06:00 Temperature 98.7 F Pulse Rate 86 73 73 Respiratory Rate 24 H Blood Pressure 114/58 L Pulse Oximetry 95 Oxygen Delivery Fraction of Inspired Oxygen 01/24/24 07:30 01/24/24 07:30 01/24/24 07:55 Temperature Pulse Rate 75 75 81 Respiratory Rate 24 H 24 H Blood Pressure Pulse Oximetry 96 Oxygen Delivery Mechanical Ventilation Fraction of Inspired Oxygen 65 01/24/24 08:00 01/24/24 08:00 01/24/24 08:00 Temperature 98.5 F Pulse Rate 80 81 Respiratory Rate 24 H 24 H Blood Pressure 110/53 L 110/53 L Pulse Oximetry 94 Oxygen Delivery Fraction of Inspired Oxygen 60 01/24/24 08:31 01/24/24 08:00 01/24/24 08:00 Temperature Pulse Rate 77 81 81 Respiratory Rate 24 H 24 H 24 H Blood Pressure 118/57 L Pulse Oximetry Oxygen Delivery Fraction of Inspired Oxygen 01/24/24 08:00 01/24/24 09:00 01/24/24 09:26 Temperature Pulse Rate 75 80 Respiratory Rate 24 H Blood Pressure 124/57 L Pulse Oximetry 95 Oxygen Delivery Mechanical Ventilation Mechanical Ventilation Fraction of Inspired Oxygen 60 60 01/24/24 10:00 01/24/24 10:00 Temperature 98 F Pulse Rate 74 74 Respiratory Rate 24 H 26 H Blood Pressure 129/61 129/61 Pulse Oximetry 95 Oxygen Delivery Fraction of Inspired Oxygen Intake/Output Intake/Output: Intake & Output 01/21/24 01/22/24 01/23/24 01/24/24 23:59 23:59 23:59 23:59 Intake Total 2560.8 2392.7 2688.9 1577.3 Output Total 1280 425 9016 450 Balance 1110.8 1842.7 1688.9 1127.3 Meds/Results Medications: Active Medications Generic Name Dose Route Start Last Admin Trade Name Freq PRN Reason Stop Dose Admin Acetaminophen 650 mg 01/20/24 10:08 01/20/24 10:29 Acetaminophen 325 Mg Tablet PO 650 mg Q4H PRN Administration Mild Pain (1-3) or Fever Albuterol/Ipratropium 3 ml 01/22/24 14:00 01/24/24 07:30 Ipratropium 0.5 Mg/Albuterol Sulfate 2.5 Mg Ampul.Neb 3 Ml INHALATION 3 ml Q6HRT EDMOND Administration Aspirin 81 mg 01/19/24 08:00 01/24/24 08:25 Aspirin 81 Mg Chewable Tablet PO 81 mg DAILY@0800 EDMOND Administration Atorvastatin Calcium 40 mg 01/19/24 09:00 01/24/24 08:24 Atorvastatin 40 Mg Tablet PO 40 mg DAILY EDMOND Administration Clopidogrel Bisulfate 75 mg 01/19/24 09:00 01/24/24 08:24 Clopidogrel Bisulfate 75 Mg Tablet PO 75 mg DAILY EDMOND Administration Dextrose 12.5 gm 01/18/24 23:28 Dextrose 50% 25 Gm/50 Ml Syringe IV PUSH PRN PRN Hypoglycemia Protocol Glucagon 1 mg 01/18/24 23:28 Glucagon For Inj 1 Mg Vial IM PRN PRN Hypoglycemia Protocol Glucose 15 gm 01/18/24 23:28 Glucose Oral Gel 15 Gm Of Glucse In 37.5 Gm Tube PO PRN PRN Hypoglycemia Protocol Heparin Sodium (Porcine) 4,500 units 01/18/24 23:25 Heparin Sodium 5,000 Units/Ml Vial IV PUSH PRN PRN aPTT less than 55 seconds Heparin Sodium (Porcine) 2,500 units 01/18/24 23:25 01/24/24 06:17 Heparin Sodium 5,000 Units/Ml Vial IV PUSH 2,500 units PRN PRN Administration aPTT 55 - 70 seconds Hydrocortisone Sodium Succinate 50 mg 01/21/24 12:05 01/24/24 06:14 Hydrocortisone Sodium Succinate 100 Mg/2 Ml Vial IV PUSH 01/26/24 12:04 50 mg Q6H EDMOND Administration Ceftriaxone Sodium 1 gm in 50 mls @ 100 mls/hr 01/19/24 17:00 01/23/24 17:56 Rocephin 1 Gm/Ns 50 Ml IVPB Infused Q24H EDMOND Infusion Heparin Sodium/Dextrose 25,000 units in 250 mls @ 10 mls/hr 01/18/24 23:25 01/24/24 10:31 Heparin Sodium/D5w 100 Units/Ml IV CONT 1,000 units/hr .Q24H EDMOND 10 mls/hr Administration Protocol 1,000 UNITS/HR Dextrose 1,000 mls @ 100 mls/hr 01/18/24 23:28 Dextrose 5% 1,000 Ml IVPB PRN PRN Hypoglycemia Protocol Fentanyl Citrate 2,500 mcg in 250 mls @ 17.2 mls/hr 01/21/24 07:40 01/24/24 08:00 Fentanyl 2,500 Mcg/Ns 250 Ml IV CONT 175 mcg/hr .[id number] EDMOND 17.5 mls/hr Titration Protocol 172 MCG/HR Midazolam HCl 100 mg in 100 mls @ 8 mls/hr 01/21/24 07:40 01/24/24 08:00 Versed 100 Mg/Ns 100 Ml IV CONT 8 mg/hr .[id number] EDMOND 8 mls/hr Titration Protocol 8 MG/HR Albumin Human 100 mls @ 60 mls/hr 01/22/24 12:00 01/24/24 07:55 Albutein IVPB 01/24/24 11:59 Infused Q6HR EDMOND Infusion Norepinephrine Bitartrate 8 mg in 250 mls @ 9.375 mls/hr 01/22/24 08:05 01/23/24 10:54 Levophed 8 Mg/D5w 250 Ml IV CONT Not Given .Q24H EDMOND Protocol 5 MCG/MIN Metronidazole 500 mg in 100 mls @ 100 mls/hr 01/23/24 08:00 01/24/24 09:43 Flagyl 500 Mg/Iso Soln 100 Ml IVPB 100 mls/hr Q8H EDMOND Administration Insulin Human Regular 100 100 mls @ 8 mls/hr 01/23/24 08:15 01/24/24 10:00 units/ Sodium Chloride IV CONT 8 units/hr .[id number] EDMOND 8 mls/hr Titration Protocol 8 UNITS/HR Cisatracurium Besylate 200 mg/ 100 mls @ 2.238 mls/hr 01/24/24 00:05 01/24/24 10:00 Dextrose IV CONT 1 mcg/kg/min .[id number] EDMOND 2.24 mls/hr Titration Protocol 1 MCG/KG/MIN Insulin Aspart 4 - 8 units 01/19/24 12:00 01/23/24 04:27 Insulin Aspart (*Bkc) 100 Units/Ml SUB-Q 8 units Q4H EDMOND Administration Protocol Insulin Glargine 50 units 01/24/24 09:00 01/24/24 08:24 Insulin Glargine (*Bkc) 100 Units/Ml SUB-Q 50 units Q12HR EDMOND Administration Levothyroxine Sodium 112 mcg 01/19/24 06:30 01/24/24 06:15 Levothyroxine Sodium 112 Mcg Tablet PO 112 mcg DAILY@0630 EDMOND Administration Midazolam HCl 2 mg 01/21/24 07:40 01/23/24 09:38 Midazolam Hcl (*Crx) 2 Mg/2 Ml Vial IV PUSH 2 mg Q5M PRN Administration ventilator asynchrony Midazolam HCl 4 mg 01/21/24 09:35 01/23/24 23:35 Midazolam Hcl (*Crx) 2 Mg/2 Ml Vial IV PUSH 4 mg PRN PRN Administration Sedation Multi-Ingred Cream/Lotion/Oil/Oint 1 applic 01/21/24 09:00 01/24/24 08:22 Mineral Oil/White Petrolatum Ointment EACH EYE 1 applic Q12HR EDMOND Administration Ondansetron HCl 4 mg 01/18/24 22:13 Ondansetron Inj 4 Mg/2 Ml Vial IV PUSH Q4H PRN Nausea Pantoprazole Sodium 40 mg 01/19/24 09:00 01/24/24 08:21 Pantoprazole Sodium Iv 40 Mg Vial IV PUSH 40 mg Q12HR EDMOND Administration Polyethylene Glycol 17 gm 01/24/24 09:00 01/24/24 08:21 Polyethylene Glycol 3350 17 Gm Powd.Pack PO 17 gm QAM EDMOND Administration Radiology Results: ITS Impressions Chest/Abdomen/Pelvis CTA 01/18/24 18:30 IMPRESSION: Nonocclusive acute subsegmental pulmonary embolus in the left lower lobe. Very small clot burden. No evidence of right heart strain. Left lower lobe pneumonia. Mild hepatomegaly. Possible cystitis. Otherwise, no acute abdominopelvic process detected. Head CT 01/19/24 05:47 Impression: No intracranial hemorrhage, mass, or acute infarct. Atrophy and chronic white matter changes, as above. Venous Doppler Study 01/19/24 15:06 IMPRESSION: Negative bilateral lower extremity venous US. No deep vein thrombosis. Abdomen X-Ray 01/21/24 08:25 IMPRESSION: Nasogastric tube projects over the upper abdomen. Chest/Abdomen/Pelvis CT 01/22/24 12:43 IMPRESSION: Worsening respiratory status with bibasilar consolidation and interstitial thickening with patchy groundglass opacification bilaterally -findings suggesting ARDS. Mural thickening within the rectosigmoid colon with multiple diverticula and prominence of the vasa recta, possibly early diverticulitis. Interval development of perihepatic fluid, compared with previous study. Chest X-Ray 01/24/24 06:45 IMPRESSION: 1. Diffuse bilateral lung disease with worsening consolidation in the left lower lung zone consistent with multifocal pneumonia and/or ARDS. Labs Labs: Laboratory Results - last 24 hr 01/23/24 01/23/24 01/23/24 10:31 11:24 11:29 WBC RBC Hgb Hct MCV MCH MCHC RDW Plt Count MPV APTT Puncture Site ABG pH ABG pCO2 ABG pO2 ABG PO2/FiO2 Ratio ABG HCO3 ABG O2 Saturation ABG O2 Content ABG Base Excess A-a Gradient Oxyhemoglobin Carboxyhemoglobin Methemoglobin Reduced Hemoglobin Total Hemoglobin O2 Delivery Device O2 Liters/Min Minute Volume Vent Rate Vent Mode FiO2 Tidal Volume PEEP Peak Inspir Pressure Pressure Support Sodium 144 Potassium 3.9 Chloride 102 Carbon Dioxide 30 Anion Gap 12 BUN 77 H D Creatinine 2.40 H Estim Creat Clear Calc 18 Estimated GFR 20 L Glucose 291 H POC Capillary Glucose 341 H 310 H Calcium 7.5 L Magnesium Total Bilirubin AST ALT Alkaline Phosphatase NT-Pro-B Natriuret Pep Total Protein Albumin 01/23/24 01/23/24 01/23/24 12:31 13:31 14:30 WBC RBC Hgb Hct MCV MCH MCHC RDW Plt Count MPV APTT Puncture Site ABG pH ABG pCO2 ABG pO2 ABG PO2/FiO2 Ratio ABG HCO3 ABG O2 Saturation ABG O2 Content ABG Base Excess A-a Gradient Oxyhemoglobin Carboxyhemoglobin Methemoglobin Reduced Hemoglobin Total Hemoglobin O2 Delivery Device O2 Liters/Min Minute Volume Vent Rate Vent Mode FiO2 Tidal Volume PEEP Peak Inspir Pressure Pressure Support Sodium Potassium Chloride Carbon Dioxide Anion Gap BUN Creatinine Estim Creat Clear Calc Estimated GFR Glucose POC Capillary Glucose 233 H 219 H 192 H Calcium Magnesium Total Bilirubin AST ALT Alkaline Phosphatase NT-Pro-B Natriuret Pep Total Protein Albumin 01/23/24 01/23/24 01/23/24 15:32 15:52 16:51 WBC RBC Hgb Hct MCV MCH MCHC RDW Plt Count MPV APTT Puncture Site ABG pH ABG pCO2 ABG pO2 ABG PO2/FiO2 Ratio ABG HCO3 ABG O2 Saturation ABG O2 Content ABG Base Excess A-a Gradient Oxyhemoglobin Carboxyhemoglobin Methemoglobin Reduced Hemoglobin Total Hemoglobin O2 Delivery Device O2 Liters/Min Minute Volume Vent Rate Vent Mode FiO2 Tidal Volume PEEP Peak Inspir Pressure Pressure Support Sodium 144 Potassium 3.8 Chloride 102 Carbon Dioxide 29 Anion Gap 13 H BUN 82 H Creatinine 2.70 H Estim Creat Clear Calc 16 Estimated GFR 17 L Glucose 254 H POC Capillary Glucose 249 H 258 H Calcium 7.4 L Magnesium Total Bilirubin AST ALT Alkaline Phosphatase NT-Pro-B Natriuret Pep Total Protein Albumin 01/23/24 01/23/24 01/23/24 17:33 18:35 20:02 WBC RBC Hgb Hct MCV MCH MCHC RDW Plt Count MPV APTT Puncture Site ABG pH ABG pCO2 ABG pO2 ABG PO2/FiO2 Ratio ABG HCO3 ABG O2 Saturation ABG O2 Content ABG Base Excess A-a Gradient Oxyhemoglobin Carboxyhemoglobin Methemoglobin Reduced Hemoglobin Total Hemoglobin O2 Delivery Device O2 Liters/Min Minute Volume Vent Rate Vent Mode FiO2 Tidal Volume PEEP Peak Inspir Pressure Pressure Support Sodium Potassium Chloride Carbon Dioxide Anion Gap BUN Creatinine Estim Creat Clear Calc Estimated GFR Glucose POC Capillary Glucose 245 H 258 H 253 H Calcium Magnesium Total Bilirubin AST ALT Alkaline Phosphatase NT-Pro-B Natriuret Pep Total Protein Albumin 01/23/24 01/23/24 01/23/24 20:13 21:27 22:10 WBC RBC Hgb Hct MCV MCH MCHC RDW Plt Count MPV APTT Puncture Site ABG pH ABG pCO2 ABG pO2 ABG PO2/FiO2 Ratio ABG HCO3 ABG O2 Saturation ABG O2 Content ABG Base Excess A-a Gradient Oxyhemoglobin Carboxyhemoglobin Methemoglobin Reduced Hemoglobin Total Hemoglobin O2 Delivery Device O2 Liters/Min Minute Volume Vent Rate Vent Mode FiO2 Tidal Volume PEEP Peak Inspir Pressure Pressure Support Sodium 144 Potassium 3.8 Chloride 102 Carbon Dioxide 26 Anion Gap 16 H BUN 88 H Creatinine 2.70 H Estim Creat Clear Calc 16 Estimated GFR 17 L Glucose 254 H POC Capillary Glucose 208 H 215 H Calcium 7.5 L Magnesium Total Bilirubin AST ALT Alkaline Phosphatase NT-Pro-B Natriuret Pep Total Protein Albumin 01/23/24 01/24/24 01/24/24 23:09 00:16 00:57 WBC RBC Hgb 7.6 L Hct 23.6 L MCV MCH MCHC RDW Plt Count MPV APTT Puncture Site ABG pH ABG pCO2 ABG pO2 ABG PO2/FiO2 Ratio ABG HCO3 ABG O2 Saturation ABG O2 Content ABG Base Excess A-a Gradient Oxyhemoglobin Carboxyhemoglobin Methemoglobin Reduced Hemoglobin Total Hemoglobin O2 Delivery Device O2 Liters/Min Minute Volume Vent Rate Vent Mode FiO2 Tidal Volume PEEP Peak Inspir Pressure Pressure Support Sodium 144 Potassium 4.0 Chloride 104 Carbon Dioxide 28 Anion Gap 12 BUN 93 H Creatinine 2.70 H Estim Creat Clear Calc 16 Estimated GFR 17 L Glucose 199 H POC Capillary Glucose 189 H 178 H Calcium 7.2 L Magnesium Total Bilirubin AST ALT Alkaline Phosphatase NT-Pro-B Natriuret Pep Total Protein Albumin 01/24/24 01/24/24 01/24/24 01:00 02:17 03:14 WBC RBC Hgb Hct MCV MCH MCHC RDW Plt Count MPV APTT Puncture Site ABG pH ABG pCO2 ABG pO2 ABG PO2/FiO2 Ratio ABG HCO3 ABG O2 Saturation ABG O2 Content ABG Base Excess A-a Gradient Oxyhemoglobin Carboxyhemoglobin Methemoglobin Reduced Hemoglobin Total Hemoglobin O2 Delivery Device O2 Liters/Min Minute Volume Vent Rate Vent Mode FiO2 Tidal Volume PEEP Peak Inspir Pressure Pressure Support Sodium Potassium Chloride Carbon Dioxide Anion Gap BUN Creatinine Estim Creat Clear Calc Estimated GFR Glucose POC Capillary Glucose 209 H 235 H 255 H Calcium Magnesium Total Bilirubin AST ALT Alkaline Phosphatase NT-Pro-B Natriuret Pep Total Protein Albumin 01/24/24 01/24/24 01/24/24 04:16 04:50 04:52 WBC 19.9 H RBC 2.32 L Hgb 7.3 L Hct 23.1 L MCV 99.6 MCH 31.5 MCHC 31.6 L RDW 15.3 H Plt Count 209 MPV 11.9 H APTT 68.9 H Puncture Site ABG pH ABG pCO2 ABG pO2 ABG PO2/FiO2 Ratio ABG HCO3 ABG O2 Saturation ABG O2 Content ABG Base Excess A-a Gradient Oxyhemoglobin Carboxyhemoglobin Methemoglobin Reduced Hemoglobin Total Hemoglobin O2 Delivery Device O2 Liters/Min Minute Volume Vent Rate Vent Mode FiO2 Tidal Volume PEEP Peak Inspir Pressure Pressure Support Sodium 144 Potassium 4.3 Chloride 103 Carbon Dioxide 28 Anion Gap 13 H BUN 96 H Creatinine 2.90 H Estim Creat Clear Calc 15 Estimated GFR 16 L Glucose 308 H POC Capillary Glucose 291 H 322 H Calcium 7.1 L Magnesium 2.3 Total Bilirubin 0.7 AST 55 H ALT 21 Alkaline Phosphatase 87 NT-Pro-B Natriuret Pep 4420 H Total Protein 7.0 Albumin 4.2 1101/24/24 01/24/24 05:28 06:10 07:05 WBC RBC Hgb Hct MCV MCH MCHC RDW Plt Count MPV APTT Puncture Site Right radial ABG pH 7.317 L ABG pCO2 52.6 H ABG pO2 70.4 L ABG PO2/FiO2 Ratio 1.01 ABG HCO3 26.3 H ABG O2 Saturation 92.6 L ABG O2 Content 11.3 L ABG Base Excess -0.1 A-a Gradient 372.2 Oxyhemoglobin 91.8 Carboxyhemoglobin 0.5 Methemoglobin 0.2 Reduced Hemoglobin 7.5 H Total Hemoglobin 8.7 L O2 Delivery Device Ventilator O2 Liters/Min Not Reportable Minute Volume Not Reportable Vent Rate 24 Vent Mode Cmv FiO2 70 Tidal Volume 360 PEEP 12 Peak Inspir Pressure Not Reportable Pressure Support Not Reportable Sodium Potassium Chloride Carbon Dioxide Anion Gap BUN Creatinine Estim Creat Clear Calc Estimated GFR Glucose POC Capillary Glucose 297 H 280 H Calcium Magnesium Total Bilirubin AST ALT Alkaline Phosphatase NT-Pro-B Natriuret Pep Total Protein Albumin 01/24/24 01/24/24 01/24/24 07:55 09:03 10:01 WBC RBC Hgb Hct MCV MCH MCHC RDW Plt Count MPV APTT Puncture Site ABG pH ABG pCO2 ABG pO2 ABG PO2/FiO2 Ratio ABG HCO3 ABG O2 Saturation ABG O2 Content ABG Base Excess A-a Gradient Oxyhemoglobin Carboxyhemoglobin Methemoglobin Reduced Hemoglobin Total Hemoglobin O2 Delivery Device O2 Liters/Min Minute Volume Vent Rate Vent Mode FiO2 Tidal Volume PEEP Peak Inspir Pressure Pressure Support Sodium Potassium Chloride Carbon Dioxide Anion Gap BUN Creatinine Estim Creat Clear Calc Estimated GFR Glucose POC Capillary Glucose 310 H 281 H 256 H Calcium Magnesium Total Bilirubin AST ALT Alkaline Phosphatase NT-Pro-B Natriuret Pep Total Protein Albumin
[2024-01-24 10:39] LABS: Creatinine Urine 48.8 mg/dL; Total Protein Urine Random 37 mg/dL; Urea Random Urine 691 MG/DL
[2024-01-24 10:40] LABS: Sodium Urine Random 13 meq/L
[2024-01-24 10:47] LABS: Add Urine Microscopic? YES; Amorphous Sediment Urine Few; Appearance Urine Turbid (Clear); Bacteria Urine None Seen /hpf; Bilirubin Urine Negative (Negative); Blood Urine 2+ (Negative); Color Urine Yellow (Yellow); Glucose Urine UA 1+ mg/dL (Negative); Ketones Urine Negative (Negative); Leukocyte Esterase Ur Negative LEU/UL (Negative); Need Manual Microscopic Reviewed; Nitrate Urine Negative (Negative); Protein Urine 1+ mg/dL (Negative); Specific Grav Ur 1.015 (1.001-1.035); Squamous Epithelial Cell Urine Few /hpf (Few); Urobilinogen Urine 0.2 mg/dL (<2.0)
[2024-01-24 10:59] LABS: Creatinine Urine 47.8 mg/dL; Eosinophil Urine None Seen % (None Seen); Total Protein Urine Random 37 mg/dL; Ur Ttl Prot Creatinine Ratio 0.77 mg/mg (0-0.20); Urine Eos QC 2nd Tech Confirmed
[2024-01-24 11:10] LABS: Glucose Point of Care 246 mg/dl (65-105)
--- NOTE | 2024-01-24 11:17 | P.CONNP_ITS ---
Assessment and Plan Assessment and plan (1) Acute kidney injury: Code(s): N17.9 - Acute kidney failure, unspecified Status: Acute Assessment and Plan: * initial improvement on admission (1.5mg/dl to 0.9mg/dl) * then worsening again noted on 01/21 (up to 1.3mg/dl and subsequently 2.3mg/dl on 01/22) * suspect multifactorial etiology: * contrast exposure * infection/sepsis * hemodynamic instability/shock * possible prerenal factors * diuretic use prior to admission * hypoxia * other(?) * evaluation to date noted: * CPK mildly elevated * UA with blood/protein and possible infection * urine electrolytes prerenal * moderate proteiunuria * renal ultrasound pending * still making reasonable urine output * diuretics PRN * remains at risk for PANTS CUTTER/dialysis * follow trend of repeat labs and UOP (2) Acute respiratory failure: Code(s): J96.00 - Acute respiratory failure, unspecified whether with hypoxia or hypercapnia Status: Acute Assessment and Plan: * thought to be secondary to a combination of pneumonia and pulmonary embolus +/- pulmonary edema * appears to have progressed to ARDS * intubated and placed on mechanical ventilation on 01/20 * recent CT of chest noted * requiring paralytics with sedation at this time * on bronchodilator therapy, steroids, and antibiotics * lasix PRN * ventilator weaning when able (3) Septic shock: Code(s): A41.9 - Sepsis, unspecified organism; R65.21 - Severe sepsis with septic shock Status: Acute Assessment and Plan: * as noted on admission - hypotension, lactic acidosis, fevers, and hypoxia/respiratory failure * presumed source = pneumonia +/- diverticulitiis * s/p IVF resuscitation and on vasopressor support (weaned off currently) * follow culture data * on antibiotic therapy (4) Community acquired pneumonia: Qualifiers: Laterality: left Lung location: lower lobe of lung Qualified Code(s): J18.9 - Pneumonia, unspecified organism Code(s): J18.9 - Pneumonia, unspecified organism Status: Acute Assessment and Plan: * based on evidence to date * viral swab for RSV/COVID/influenza negative * follow culture data * on antibiotics (5) Pulmonary embolism: Code(s): I26.99 - Other pulmonary embolism without acute cor pulmonale Status: Acute Assessment and Plan: * admission CTA of chest with nonocclusive acute subsegmental PE in the left lower lobe with very small clot burden * venous dopplers negative * on anticoagulation (6) Diverticulitis: Code(s): K57.92 - Diverticulitis of intestine, part unspecified, without perforation or abscess without bleeding Status: Acute Assessment and Plan: * CT abdomen pelvis with mural thickening within the rectosigmoid colon with multiple diverticula and prominence of the vasa recta, possibly early diverticulitis. Interval development of perihepatic fluid, compared with previous study * follow cultures * remains on antibiotics (7) Anemia: Code(s): D64.9 - Anemia, unspecified Status: Acute Assessment and Plan: * presumably due to YESI and acute illness * no evidence of GI loss * PRBC transfusion per protocol * follow trend of H/H (8) Diabetes: Code(s): E11.9 - Type 2 diabetes mellitus without complications Status: Acute Assessment and Plan: * follow accu-cheks * glycemic control per block setter gypsum/hospitalist I will continue to follow the patient with you while she remains hospitalized and make further recommendations as deemed necessary. Thank you for allowing me to participate in the care of this patient. History of Present Illness Reason for Consult Consult date: 01/24/24 Reason for consult: acute renal failure Chief Complaint Chief complaint: pneumonia, septic shock History of Present Illness Narrative: All of the information I have obtained is from review of the electronic medical record as well as discussion with the physician/ nurses involved in the patient's care as she is currently unable to provide any history as she is intubated and on mechanical ventilation. The patient is a 68-year-old female with a past medical history as outlined below who presented to [facility] about 5 days ago with complaints of shortness of breath, cough, and fevers. Apparently she been having shortness of breath for the past 3 or 4 days if not longer with fevers as high as 102.3? in association with a nonproductive cough. she reports that her grandchildren apparently had upper respiratory tract infection symptoms and she presumed that is where she got her illness. Other associated symptoms included decreased oral intake and generalized fatigue /weakness. As the symptoms continued to progress, she presented to the emergency room for further assessment. Workup and evaluation emergency room demonstrated the patient to be hypotensive and hypoxic. She was placed on high-flow oxygen therapy to improve her oxygen saturations and received aggressive IV fluids given her significant hypotension. Unfortunately, despite aggressive IV fluid resuscitation, she remained hypotensive and a central line had to be placed for initiation of vasopressor therapy. Subsequent blood work demonstrated an elevated white blood cell count, relative anemia, and elevated creatinine of 1.5 mg/dL in association with the lactic acid 3.0. Following aggressive IV fluid resuscitation, her lactic acid improved to 2.1 but she remained on vasopressor therapy due to her hypotension. Subsequent imaging included a CT scan of her chest that showed a small left lower lobe nonobstructive pulmonary embolism with low clot burden and a left lower lobe consolidation consistent with pneumonia. After appropriate cultures were obtained, she was initiated on broad-spectrum antibiotics and subsequently admitted to the ICU for further evaluation and therapy. Since her admission, her renal function actually improved to a normal creatinine but then started to deteriorate in the last 24 hours. Furthermore, her respirat ory status had been doing relatively well but then deteriorated to the point where she required intubation and placement on mechanical ventilation. Renal consultation was requested due to her acute kidney injury/ acute renal failure. From review her records, her baseline creatinine is normal and as mentioned above, her creatinine was elevated on admission but then normalized before deteriorated once again yesterday morning and by labs done this morning. Her renal dysfunction is likely multifactorial including her hemodynamic instability, prerenal factors, infection/sepsis, and contrast exposure from her CTA of the chest. Despite her elevated creatinine, she has no critical electrolyte abnormalities and she appears to making reasonable urine output in spite of the fact that her BUN and creatinine are rising. Given her fluctuating respiratory status, she has required the addition of paralytics to help maintain stability in her respiratory status. Currently, the time my evaluation, she does not appear to be in any acute distress. Review of Systems Review of Systems: As per HPI. FOR[facility]LY [facility], [facility] Past Medical History Medical History Allergic rhinitis CAD (coronary artery disease) Diabetes Gastric cardia ulcer Noted on EGD 12/04/2023 History of Clostridium difficile infection (12/2022) HTN (hypertension) Hx of blood clots Pulmonary embolism at age 15 due to control use Hypothyroidism Tobacco use Surgical History Surgical History (Updated 01/18/24 @ 23:35 by Lisa Anderson DO) History of cardiac cath History of colonoscopy (04/02/23) History of coronary artery stent placement x1 History of esophagogastroduodenoscopy (EGD) (12/04/23) Hx of cholecystectomy Family History Family History Father Diabetes mellitus Cancer Mother Diabetes mellitus Social History Social History (Updated 01/19/24 @ 08:19 by Lisa Anderson DO) Social History: The patient lives in her own home. She has been since approximately 2019. She was for 50 years prior to her 's and they raised 6 children. She has approximately 32 grandchildren. 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 She has smoked a half a pack of cigarettes per day on average shins she was in her teens. She denies significant alcohol use history or history of drug use. Code status: Full code (she states that she would not want to be on a ventilator long-term or be completed dependent for care.) Healthcare power of deputy prosecuting attorney: Tiffany Gary (youngest daughter) Smoking packs per day: 0.5 Smoking cigarettes per day: 10.0 Years smoked: 53 Smoking pack-years: 26.50 Smoking status: Former smoker Smoking end date: 01/05/24 Alcohol intake: never Substance use: never Substance use type: does not use Do You Feel Safe in your Home?: Yes Lack of Transportation: No Lack of Food: Never True Current Housing: I Have Housing Concerned About Future Housing: No Difficulty Paying Gas/Electric Bills: No Difficulty Paying for Meds: No Currently Unemployed: No Education: High School Diploma/GED Difficulty w/ Childcare or Family Care: No Living arrangements: with family Spiritual care concerns: No Meds Home Medications and Allergies Home Medications Medication Instructions Recorded Confirmed Type metformin 500 mg tablet,extended 500 mg PO BID 12/20/22 01/18/24 History release 24 hr sertraline 100 mg tablet 100 mg PO DAILY 12/20/22 01/18/24 History clopidogrel 75 mg tablet 75 mg PO DAILY 12/26/22 01/18/24 History amlodipine 2.5 mg tablet 2.5 mg PO DAILY 09/09/23 01/18/24 History aspirin 81 mg tablet 81 mg PO DAILY 11/11/23 01/18/24 History atorvastatin 40 mg tablet 40 mg PO DAILY 01/18/24 01/18/24 History dicyclomine 10 mg capsule 10 mg PO TID 01/18/24 01/18/24 History furosemide 40 mg tablet 40 mg PO DAILY 01/18/24 01/18/24 History lansoprazole 15 mg capsule,delayed 15 mg PO DAILY 01/18/24 01/18/24 History release levothyroxine 112 mcg tablet 112 mcg PO DAILY 01/18/24 01/18/24 History nitroglycerin 0.4 mg sublingual 4 mg sublingual PRN PRN Chest Pain 01/18/24 01/18/24 History tablet Allergies Allergy/AdvReac Type Severity Reaction Status Date / Time naproxen AdvReac Itching Verified 01/18/24 22:24 Sulfa (Sulfonamide AdvReac Itching Verified 01/18/24 22:24 Antibiotics) Vital Signs Vital Signs Temp Pulse Resp BP Pulse Ox O2 Del Method FiO2 01/24/24 11:11 71 26 H 127/61 01/24/24 10:00 74 26 H 01/24/24 10:00 74 26 H 01/24/24 10:49 73 93 Mechanical Ventilation 60 01/24/24 10:00 74 01/24/24 08:00 80 01/24/24 10:00 98 F 74 26 H 129/61 95 01/24/24 10:00 74 24 H 129/61 01/24/24 09:26 80 95 Mechanical Ventilation 60 01/24/24 09:00 75 24 H 124/57 L 01/24/24 08:00 Mechanical Ventilation 60 01/24/24 08:00 81 24 H 01/24/24 08:00 81 24 H 01/24/24 08:31 77 24 H 118/57 L 01/24/24 08:00 60 01/24/24 08:00 98.5 F 81 24 H 110/53 L 94 01/24/24 08:00 80 24 H 110/53 L 01/24/24 07:55 81 24 H 01/24/24 07:30 75 24 H 01/24/24 07:30 75 96 Mechanical Ventilation 65 01/24/24 06:00 73 01/24/24 06:00 98.7 F 73 24 H 114/58 L 95 01/24/24 04:00 86 01/24/24 06:00 73 24 H 114/58 L 01/24/24 06:00 73 24 H 01/24/24 06:00 73 24 H 01/24/24 05:23 80 94 Mechanical Ventilation 70 01/24/24 04:00 98.8 F 88 24 H 111/55 L 94 01/24/24 04:00 70 01/24/24 04:00 Mechanical Ventilation 70 01/24/24 04:00 88 24 H 111/55 L 01/24/24 04:00 88 24 H 01/24/24 04:00 88 24 H 01/24/24 02:00 85 24 H 112/55 L 01/24/24 02:54 84 24 H 01/24/24 02:53 76 95 Mechanical Ventilation 70 01/24/24 02:00 98.6 F 84 24 H 112/55 L 96 01/24/24 01:45 98.7 F 88 24 H 97 01/24/24 01:30 98.7 F 89 24 H 115/56 L 97 01/24/24 00:30 99.0 F 85 24 H 112/58 L 95 01/24/24 01:30 88 24 H 115/56 L 01/24/24 02:00 85 24 H 01/24/24 02:00 85 24 H 01/24/24 02:00 84 01/24/24 00:00 80 01/24/24 00:00 80 01/24/24 00:00 Mechanical Ventilation 80 01/23/24 22:00 83 01/23/24 22:00 99.1 F 92 30 H 121/62 92 01/23/24 20:00 82 01/23/24 20:00 100.3 F H 83 24 H 115/57 L 91 01/23/24 20:00 60 01/23/24 20:00 Mechanical Ventilation 60 01/24/24 01:15 92 24 H 126/62 01/24/24 01:00 92 24 H 123/63 01/24/24 00:00 79 30 H 01/24/24 00:00 79 30 H 01/24/24 00:45 81 24 H 116/59 L 01/24/24 00:00 79 30 H 01/23/24 23:39 90 80 01/23/24 23:28 84 87 L Mechanical Ventilation 60 01/23/24 22:00 83 30 H 01/23/24 22:00 83 30 H 01/23/24 22:00 83 30 H 01/23/24 20:44 87 24 H 01/23/24 20:37 83 90 Mechanical Ventilation 60 01/23/24 20:00 81 24 H 01/23/24 20:00 81 24 H 01/23/24 18:09 60 01/23/24 18:00 99.8 F H 82 22 H 111/56 L 89 L 01/23/24 18:00 81 01/23/24 18:00 81 27 H 01/23/24 18:00 82 27 H 01/23/24 16:00 80 01/23/24 16:56 88 96 Mechanical Ventilation 55 01/23/24 16:00 55 01/23/24 16:00 99.7 F H 81 24 H 113/58 L 93 01/23/24 16:00 81 24 H 01/23/24 16:00 81 24 H 01/23/24 15:59 82 19 91 Mechanical Ventilation 55 01/23/24 14:00 99.8 F H 84 26 H 112/57 L 93 01/23/24 14:00 83 01/23/24 14:00 85 24 H 01/23/24 14:00 85 24 H Exam Narrative: GENERAL APPEARANCE: elderly but well developed well nourished female intubated/sedated/paralyzed on mechanical ventilation HEENT: normocephalic, atraumatic, normal conjunctiva and sclera, nares patient NECK: no lymphadenopathy, thyromegaly, or JVD MOUTH: normal lips, teeth, and gums' ETT and OGT in place CARDIOVASCULAR: RRR, normal S1 and S2, no rub detected RESPIRATORY: coarse breath sounds throughout ABDOMEN: soft, nontender, nondistended, positive bowel sounds present EXTREMITIES: no evidence of cyanosis, clubbing, or edema NEUROLOGICAL: unable to assess Results Lab Results 01/29/24 05:12 01/29/24 05:12 Lab results: Most recent lab results ABG pH 7.317 (7.350-7.450) L 01/24/24 05:28 ABG pCO2 52.6 mmHg (35.0-45.0) H 01/24/24 05:28 ABG pO2 70.4 mmHg (80.0-100.0) L 01/24/24 05:28 ABG HCO3 26.3 mEq/l (22.0-26.0) H 01/24/24 05:28 ABG O2 Saturation 92.6 % (95.0-100.0) L 01/24/24 05:28 Calcium 7.1 mg/dL (8.4-10.2) L 01/24/24 04:50 Phosphorus 3.2 mg/dL (2.5-4.5) 01/20/24 05:44 Magnesium 2.3 mg/dL (1.6-2.3) 01/24/24 04:50 Urine Creatinine 47.8 mg/dL 01/24/24 10:17 Urine Creatinine 48.8 mg/dL 01/24/24 10:17
[2024-01-24 12:06] LABS: Hematocrit 21.8 % (37.0-47.0); Mean Corpuscular HGB Conc 32.1 g/dl (32-36); Mean Corpuscular Hemoglobin 31.4 pg (26-34); Mean Corpuscular Volume 97.8 fl (80-100); Mean Platelet Volume 11.6 fl (7.4-10.4); Platelet Count Result 204 k/mm3 (150-375); Red Blood Count 2.23 M/mm3 (4.2-5.4); Red Cell Distribution Width 15.3 % (11.5-14.5); White Blood Count 17.6 K/mm3 (4.5-10.0)
[2024-01-24 12:15] LABS: Glucose Point of Care 234 mg/dl (65-105)
[2024-01-24 12:19] LABS: Partial Thromboplastin Time 96.4 Seconds (22.3-36.8)
[2024-01-24 13:07] LABS: Glucose Point of Care 214 mg/dl (65-105)
[2024-01-24] MEDS: INSULIN HUMAN REGULAR (*BKC) 100 UNITS in SODIUM CHLORIDE 0.9% IV 99 ML 9 UNITS IV CONT (14:05)
[2024-01-24] MEDS: MIDAZOLAM 100MG/NS 100ML(*CRX) 100 MG/100 ML BAG 8 MG IV CONT ×2 (14:07)
[2024-01-24 14:08] LABS: Glucose Point of Care 213 mg/dl (65-105)
[2024-01-24] MEDS: FENTANYL 2,500MCG/NS250ML(*CRX 2,500 MCG/250 ML BAG 17.5 MCG IV CONT (14:09)
[2024-01-24 15:07] LABS: Glucose Point of Care 186 mg/dl (65-105)
[2024-01-24 16:11] LABS: Glucose Point of Care 184 mg/dl (65-105)
[2024-01-24 17:10] LABS: Glucose Point of Care 212 mg/dl (65-105)
[2024-01-24] MEDS: METOCLOPRAMIDE HCL 10 MG/10 ML SOLN UDC PO (17:29)
[2024-01-24 18:09] LABS: Glucose Point of Care 230 mg/dl (65-105)
[2024-01-24 18:14] LABS: Hematocrit 21.8 % (37.0-47.0); Mean Corpuscular HGB Conc 32.1 g/dl (32-36); Mean Corpuscular Hemoglobin 31.3 pg (26-34); Mean Corpuscular Volume 97.3 fl (80-100); Mean Platelet Volume 11.3 fl (7.4-10.4); Platelet Count Result 214 k/mm3 (150-375); Red Blood Count 2.24 M/mm3 (4.2-5.4); Red Cell Distribution Width 15.3 % (11.5-14.5); White Blood Count 18.5 K/mm3 (4.5-10.0)
[2024-01-24 18:29] LABS: Partial Thromboplastin Time 91.5 Seconds (22.3-36.8)
[2024-01-24 19:04] LABS: Glucose Point of Care 226 mg/dl (65-105)
[2024-01-24 20:13] LABS: Glucose Point of Care 249 mg/dl (65-105)
[2024-01-24 21:15] LABS: Glucose Point of Care 246 mg/dl (65-105)
[2024-01-24 22:18] LABS: Glucose Point of Care 258 mg/dl (65-105)
[2024-01-24 22:18] LABS: Legionella pneumophila Ag Ur NOT DETECTED
[2024-01-24 23:16] LABS: Glucose Point of Care 244 mg/dl (65-105)
[2024-01-25] VITALS (41 sets, daily range): BP systolic 111–131; BP diastolic 49–65; PULSE 60–97; RESP 17–28; TEMP 36.1–37.3; O2SAT 94–100
[2024-01-25] MEDS: METOCLOPRAMIDE HCL 10 MG/10 ML SOLN UDC PO ×2 (00:18→05:32)
[2024-01-25] MEDS: metroNIDAZOLE 500 MG/ISO 100ML 500 MG/100 ML BAG 100 MG IVPB ×4 (00:19→23:44)
[2024-01-25] MEDS: HYDROCORTISONE SODIUM SUCCINATE 100 MG/2 ML VIAL 50 MG IV PUSH ×5 (00:19→23:44)
[2024-01-25 00:43] LABS: Glucose Point of Care 222 mg/dl (65-105)
[2024-01-25 01:19] LABS: Glucose Point of Care 212 mg/dl (65-105)
[2024-01-25] MEDS: IPRATROPIUM 0.5 MG/ALBUTEROL SULFATE 2.5 MG AMPUL.NEB 3 ML INHALATION ×4 (01:38→20:09)
[2024-01-25 02:16] LABS: Glucose Point of Care 186 mg/dl (65-105)
[2024-01-25] MEDS: MIDAZOLAM 100MG/NS 100ML(*CRX) 100 MG/100 ML BAG 8 MG IV CONT ×2 (02:41→13:23)
[2024-01-25 03:12] LABS: Glucose Point of Care 192 mg/dl (65-105)
[2024-01-25 04:01] LABS: Glucose Point of Care 215 mg/dl (65-105)
[2024-01-25] MEDS: FENTANYL 2,500MCG/NS250ML(*CRX 2,500 MCG/250 ML BAG 17.5 MCG IV CONT ×2 (05:20→20:14)
[2024-01-25 05:23] LABS: Alveolar/Arterial O2 Gradient 370.3 mmHg; Base Excess ABG -1.5 mEq/l (+/-2.0); Carboxyhemoglobin 0.6 % THb (0-2.0); Fractional Inspired Oxygen 70 %; HCO3 ABG 24.2 mEq/l (22.0-26.0); Methemoglobin ABG 0.1 %THb (0-1.5); Oxygen Saturation ABG 95.2 % (95.0-100.0); PCO2 ABG 45.5 mmHg (35.0-45.0); PO2 ABG 79.9 mmHg (80.0-100.0); PO2 FiO2 Ratio Arterial Blood 1.14 %; Reduced Hemoglobin 5.3 %THb (0-5.0); Total Hemoglobin 8.2 g/dL (12.0-18.0); pH ABG 7.344 (7.350-7.450)
[2024-01-25 05:26] LABS: Device VENTILATOR; Modified Allen's Test Pass; Site Drawn RIGHT RADIAL
[2024-01-25 05:27] LABS: Arterial Blood Gas PEEP 12 cmH2O; Arterial Blood Gas Tidal Volume 360 ml; Arterial Blood Gas Vent Mode CMV; Arterial Blood Gas Ventilator rate 26 /MIN
[2024-01-25] MEDS: LEVOTHYROXINE SODIUM 112 MCG TABLET PO (05:31)
[2024-01-25 05:38] LABS: Hematocrit 22.9 % (37.0-47.0); Hemoglobin 7.4 g/dL (12.0-15.0); Mean Corpuscular HGB Conc 32.3 g/dl (32-36); Mean Corpuscular Hemoglobin 31.2 pg (26-34); Mean Corpuscular Volume 96.6 fl (80-100); Mean Platelet Volume 11.8 fl (7.4-10.4); Platelet Count Result 229 k/mm3 (150-375); Red Blood Count 2.37 M/mm3 (4.2-5.4); Red Cell Distribution Width 15.3 % (11.5-14.5); White Blood Count 19.4 K/mm3 (4.5-10.0)
[2024-01-25 05:40] LABS: Glucose Point of Care 228 mg/dl (65-105)
[2024-01-25 05:49] LABS: Alanine Aminotransferase 17 U/L (6-35); Albumin Level 4.1 g/dL (3.5-5.1); Alkaline Phosphatase 66 U/L (38-126); Anion Gap 15 mmol/L (4-12); Aspartate Amino Transferase 33 U/L (14-36); Bilirubin,Total 0.6 mg/dL (0.2-1.3); Blood Urea Nitrogen 115 mg/dL (7-17); Calcium 7.7 mg/dL (8.4-10.2); Carbon Dioxide 26 mmol/L (22-30); Chloride 106 mmol/L (98-107); Estimated CRCL calculation 14 ml/min; Estimated Glomerular Filt Rate 15; Glucose 242 mg/dL (65-110); Magnesium 2.3 mg/dL (1.6-2.3); Sodium 147 mmol/L (137-145)
[2024-01-25 06:10] LABS: Partial Thromboplastin Time 106.8 Seconds (22.3-36.8)
[2024-01-25 06:32] LABS: Glucose Point of Care 262 mg/dl (65-105)
[2024-01-25 07:10] LABS: Glucose Point of Care 279 mg/dl (65-105)
[2024-01-25 07:59] LABS: Glucose Point of Care 301 mg/dl (65-105)
[2024-01-25] MEDS: ATORVASTATIN 40 MG TABLET PO (08:05)
[2024-01-25] MEDS: ASPIRIN 81 MG CHEWABLE TABLET PO (08:05)
[2024-01-25] MEDS: CLOPIDOGREL BISULFATE 75 MG TABLET PO (08:05)
[2024-01-25] MEDS: PANTOPRAZOLE SODIUM IV 40 MG VIAL IV PUSH ×2 (08:05→20:13)
[2024-01-25] MEDS: polyethylene glycoL 3350 17 GM POWD.PACK PO (08:06)
[2024-01-25] MEDS: INSULIN GLARGINE (*BKC) 100 UNITS/ML 65 UNITS SUB-Q (08:28)
[2024-01-25] MEDS: MINERAL OIL/WHITE PETROLATUM OINTMENT 1 APPLIC EACH EYE ×2 (08:30→20:13)
--- NOTE | 2024-01-25 09:03 | P.PNINT_ITS ---
Progress Note: A&P Assessment and Plan (1) Acute respiratory failure: Code(s): J96.00 - Acute respiratory failure, unspecified whether with hypoxia or hypercapnia Status: Acute Assessment and Plan: Acute Respiratory failure secondary to pneumonia and PE. Patient appears to have developed ARDS Patient had became CPAP dependent 100% FiO2. Forty of Lasix given IV last night without any significant improvement. Patient does not have any edema on lower extremity suggestive of heart failure. Echo reviewed. 01/20 patient intubated for discussion with the patient and her daughter. ABG reviewed and low tidal volume ventilation. PEEP set at 12 tidal volume at 300 mL. FiO2 is 100%. Increase respiratory rate to 26 Post intubation patient was coughing and gagging leading to desaturation hence was given rocuronium. Patient was started on Nimbex infusion along with sedation at this time. Patient was placed in prone position 01/21 patient was switched to supine position around 2:00 a.m.. She is a 70% FiO2 and 12 of PEEP 01/22 on 55% FiO2 and 12 of PEEP. ABG reviewed. Decrease respiratory rate to 24. Continue to wean FiO2. CT scan done yesterday showed IMPRESSION: Worsening respiratory status with bibasilar consolidation and interstitial thickening with patchy groundglass opacification bilaterally -findings suggesting ARDS. 01/23 overnight patient had increased oxygen requirement. Yesterday morning neuromuscular yasemin infusion was discontinued but patient later was a synchronous with the ventilator with coughing and gagging. Sedation was increased but did not fix the problem patient desaturated. Nimbex infusion was restarted. This morning she is on 70% FiO2 and Wean FiO2 to 65% this morning 01/24 continues to be on mechanical ventilation and is on 70% FiO2 and 12 of PEEP. I will increase the PEEP to 14. Chest x-ray reviewed and does not show any significant change ABG reviewed continue current ventilator settings Continue Low tidal volume ventilation and permissive hypercapnia and permissive respiratory acidosis Patient was given Lasix IV yesterday for any possible component pulmonary edema although patient does not have any sign of volume overload with no edema in the legs, echo also reviewed Continue Bronchodilators Treatment of pneumonia and PE as above Patient started on course of steroids due to severity of pneumonia and ARDS which will be continued I will pause Nimbex infusion and see if patient tolerates coming off of neuromuscular yasemin day (2) Septic shock: Code(s): A41.9 - Sepsis, unspecified organism; R65.21 - Severe sepsis with septic shock Status: Acute Assessment and Plan: Secondary to pneumonia 01/17: Patient presented with hypotension, elevated lactic acid levels, fevers, cough, hypoxia -received 30 mL/kg IV fluids -started on Levophed via femoral central line - Off IV fluids vasopressors now -continue azithromycin and ceftriaxone (01/17) -01/17: Blood cultures have been obtained and negative till now MRSA screen negative Urine pneumococcal antigen negative Urine Legionella antigen pending Influenza RSV and COVID PCR negative (3) Community acquired pneumonia: Qualifiers: Laterality: left Lung location: lower lobe of lung Qualified Code(s): J18.9 - Pneumonia, unspecified organism Code(s): J18.9 - Pneumonia, unspecified organism Status: Acute Assessment and Plan: See above (4) Diabetes: Code(s): E11.9 - Type 2 diabetes mellitus without complications Status: Acute Assessment and Plan: Uncontrolled Increase Lantus dose Continue insulin infusion for now (5) Acute kidney injury: Code(s): N17.9 - Acute kidney failure, unspecified Status: Acute Assessment and Plan: Patient initially presented with Acute kidney injury likely related to hypotension, septic shock She was adequately fluid-resuscitated and came off of IV fluids Creatinine normalized initially Patient did receive contrast for CTA Creatinine increased post intubation. 01/22 Lasix IV x1 Patient was given 25% albumin and will give 5% albumin. Will avoid liberal fluids due to patient's respiratory status. Patient is positive her I/O balance Creatinine continues to increase and 3 with elevated BUN which could be secondary to steroids She still producing decent amount of urine. I have consulted Nephrology. She may need [employer]. Continue to monitor urine output, electrolytes and creatinine (6) Pulmonary embolism: Code(s): I26.99 - Other pulmonary embolism without acute cor pulmonale Status: Acute Assessment and Plan: Continue heparin infusion small PE Venous Dopplers negative 01/17: CT chest abdomen and pelvis IMPRESSION: Nonocclusive acute subsegmental pulmonary embolus in the left lower lobe. Very small clot burden. No evidence of right heart strain. Left lower lobe pneumonia. Mild hepatomegaly. Possible cystitis. Otherwise, no acute abdominopelvic process detected. Echo Summary 1. Left ventricular systolic function is normal, estimated at 55-60%. 2. There is mildly increased left ventricular wall thickness. 3. The left ventricular diastolic function is grade I diastolic dysfunction. 4. There is trace mitral valve regurgitation. 5. There is trace tricuspid valve regurgitation. 6. No pulmonary hypertension, estimated pulmonary arterial systolic pressure is 41 mmHg. 7. Right ventricular systolic function is normal. 8. Right ventricular chamber dimension is normal. (7) Electrolyte abnormality: Code(s): E87.8 - Other disorders of electrolyte and fluid balance, not elsewhere classified Status: Acute Assessment and Plan: Increase free water flush (8) Diverticulitis: Code(s): K57.92 - Diverticulitis of intestine, part unspecified, without perforation or abscess without bleeding Status: Acute Assessment and Plan: CT abdomen pelvis showed Mural thickening within the rectosigmoid colon with multiple diverticula and prominence of the vasa recta, possibly early diverticulitis. Interval development of perihepatic fluid, compared with previous study. Currently on Rocephin and Flagyl. (9) Ileus: Code(s): K56.7 - Ileus, unspecified Status: Acute Assessment and Plan: Last night patient had high residuals and tube feeds had to be held. I have started patient on Reglan per tube. Tube feeds have been resumed at 20 mL/hour. On today's exam I do not hear any significant bowel sounds. This may signify some ileus. She did had small bowel movements overnight. Continue laxative. Continue tube feeds at 20 mL/hour. Check KUB. (10) Anemia: Code(s): D64.9 - Anemia, unspecified Status: Acute Assessment and Plan: Patient's hemoglobin has gradually trended down over last 4-5 days. She is on heparin infusion for PE. There has been no evidence of bleeding. Continue monitor this time. Transfuse if hemoglobin less than 7. Platelets are at acceptable level. She is also on aspirin Plavix for coronary disease She is on Protonix twice a day Plan DVT prophylaxis: Heparin infusion Stress ulcer prophylaxis: Protonix IV q.12 hours Nutrition:. Continue tube feeds. Code Status: 01/20 I spoke to patient prior to intubation about cold and goals of care. She stated that she would like 1-2 rounds of resuscitation in case of cardiac arrest to see if she can be brought back but does not want prolonged resuscitation efforts. She also states that if she is unable to come off the ventilator in 2 weeks time she would not want a feeding tube and tracheostomy for long-term mechanical ventilation. Patient's daughter was at bedside and in agreement with patient's wishes 01/22 patient's son updated him patient's current status including changes in the respiratory status, worsening renal function. I answered all questions. Critical Care Time Spent: 45 minutes Due to a high probability of clinically significant, life threatening deterioration, the patient required my highest level of preparedness to intervene emergently and I personally spent this critical care time directly and personally managing the patient. This critical care time included obtaining a history; examining the patient; pulse oximetry; ordering and review of studies; arranging urgent treatment with development of a management plan; evaluation of patient's response to treatment; frequent reassessment; and discussions with other providers. It was exclusive of separately billable procedures and treating other patients and teaching time. Please see Assessment and Plan section and the rest of the note for further information on patient assessment and treatment This dictation may have been done utilizing a voice recognition system. Attempts have been made to correct errors. However, there may be uncorrected grammatical, spelling, and recognitions errors present. Subjective Date/time seen: 01/25/24 Overnight events reviewed. Afebrile Continues to be on mechanical ventilation 70% FiO2 and 12 peep Tube feeds were held last night due to high residuals. Patient was started on Reglan and resumed tube feeds at a low rate. Continues to be sedated with Versed fentanyl and paralyzed with Nimbex Urine output is acceptable without diuretics Other Vitals acceptable Interval history: 68yo female with HTN, CHF, DM and HLD with PE pneumonia acute respiratory failure ARDS acute kidney injury Review of Systems Review of Systems: ROS unobtainable: Yes unobtainable due to endotracheal tube, unobtainable due to medical condition and unobtainable due to mental status Exam Narrative: General: intubated sedated and chemically paralyzed HEENT:? Pupils equal and reactive, sclerae sclera, ET tube in place Neck:? Supple Respiratory:? Coarse breath sounds bilaterally no wheezing, Cardiac:? S1-S2 was normal, regular rate and rhythm Abdomen:? Soft, distended, no tenderness, absent bowel sounds Extremities:? No edema, palpable pedal pulses Neuro:? Patient is intubated sedated and chemically paralyzed,, PERRL Skin:? Warm and dry Objective Data Vital Signs Vital Signs: Vital Signs - 24 hr 01/24/24 09:26 01/24/24 10:00 01/24/24 10:00 Temperature 36.6 C Pulse Rate 80 74 74 Respiratory Rate 24 H 26 H Blood Pressure 129/61 129/61 Pulse Oximetry 95 95 Oxygen Delivery Mechanical Ventilation Fraction of Inspired Oxygen 60 01/24/24 10:00 01/24/24 10:49 01/24/24 10:00 Temperature Pulse Rate 74 73 74 Respiratory Rate 26 H Blood Pressure Pulse Oximetry 93 Oxygen Delivery Mechanical Ventilation Fraction of Inspired Oxygen 60 01/24/24 10:00 01/24/24 11:11 01/24/24 12:00 Temperature Pulse Rate 74 71 Respiratory Rate 26 H 26 H Blood Pressure 127/61 Pulse Oximetry Oxygen Delivery Fraction of Inspired Oxygen 60 01/24/24 12:00 01/24/24 12:00 01/24/24 12:00 Temperature 36.6 C Pulse Rate 71 71 71 Respiratory Rate 26 H 26 H 26 H Blood Pressure 124/57 L Pulse Oximetry 95 Oxygen Delivery Fraction of Inspired Oxygen 01/24/24 12:00 01/24/24 12:00 01/24/24 12:00 Temperature Pulse Rate 71 72 Respiratory Rate 26 H Blood Pressure 124/57 L Pulse Oximetry Oxygen Delivery Mechanical Ventilation Fraction of Inspired Oxygen 60 01/24/24 13:19 01/24/24 13:19 01/24/24 13:46 Temperature Pulse Rate 70 70 76 Respiratory Rate 26 H 26 H Blood Pressure Pulse Oximetry 93 Oxygen Delivery Mechanical Ventilation Fraction of Inspired Oxygen 60 01/24/24 12:30 01/24/24 14:07 01/24/24 12:18 Temperature Pulse Rate 76 76 76 Respiratory Rate 26 H 26 H 26 H Blood Pressure Pulse Oximetry Oxygen Delivery Fraction of Inspired Oxygen 01/24/24 14:09 01/24/24 14:00 01/24/24 14:00 Temperature 36.7 C Pulse Rate 76 76 76 Respiratory Rate 26 H 26 H Blood Pressure 121/58 L Pulse Oximetry 90 Oxygen Delivery Fraction of Inspired Oxygen 01/24/24 13:00 01/24/24 14:00 01/24/24 15:00 Temperature Pulse Rate 69 76 76 Respiratory Rate 26 H 26 H 26 H Blood Pressure 127/60 121/58 L 125/60 Pulse Oximetry Oxygen Delivery Fraction of Inspired Oxygen 01/24/24 16:00 01/24/24 16:00 01/24/24 16:00 Temperature Pulse Rate 75 75 75 Respiratory Rate 26 H 26 H 26 H Blood Pressure 121/55 L Pulse Oximetry Oxygen Delivery Fraction of Inspired Oxygen 01/24/24 16:00 01/24/24 16:00 01/24/24 16:00 Temperature 37.0 C Pulse Rate 75 Respiratory Rate 26 H Blood Pressure 121/55 L Pulse Oximetry 92 Oxygen Delivery Mechanical Ventilation Fraction of Inspired Oxygen 60 60 01/24/24 16:40 01/24/24 16:00 01/24/24 17:00 Temperature Pulse Rate 73 74 73 Respiratory Rate 26 H Blood Pressure 116/57 L Pulse Oximetry 92 Oxygen Delivery Mechanical Ventilation Fraction of Inspired Oxygen 60 01/24/24 18:00 01/24/24 18:00 01/24/24 18:00 Temperature 37.0 C Pulse Rate 68 68 68 Respiratory Rate 26 H 26 H Blood Pressure 123/60 Pulse Oximetry 94 Oxygen Delivery Fraction of Inspired Oxygen 01/24/24 18:00 01/24/24 18:00 01/24/24 19:00 Temperature Pulse Rate 68 68 66 Respiratory Rate 26 H 26 H 26 H Blood Pressure 123/60 128/58 L Pulse Oximetry Oxygen Delivery Fraction of Inspired Oxygen 01/24/24 19:46 01/24/24 19:46 01/24/24 20:00 Temperature Pulse Rate 71 71 68 Respiratory Rate 26 H 26 H Blood Pressure 126/58 L Pulse Oximetry 98 Oxygen Delivery Mechanical Ventilation Fraction of Inspired Oxygen 60 01/24/24 20:00 01/24/24 20:09 01/24/24 21:00 Temperature Pulse Rate 68 68 71 Respiratory Rate 26 H 26 H 26 H Blood Pressure 120/57 L Pulse Oximetry Oxygen Delivery Fraction of Inspired Oxygen 01/24/24 20:00 01/24/24 20:00 01/24/24 20:00 Temperature Pulse Rate 68 68 Respiratory Rate 26 H Blood Pressure Pulse Oximetry 93 Oxygen Delivery Mechanical Ventilation Fraction of Inspired Oxygen 60 60 01/24/24 20:00 01/24/24 20:40 01/24/24 22:00 Temperature 36.9 C Pulse Rate 68 72 68 Respiratory Rate 26 H 26 H Blood Pressure 126/58 L Pulse Oximetry 93 88 L Oxygen Delivery Mechanical Ventilation Fraction of Inspired Oxygen 70 01/24/24 22:00 01/24/24 19:52 01/24/24 22:00 Temperature 36.6 C Pulse Rate 68 73 66 Respiratory Rate 26 H 26 H 26 H Blood Pressure 127/58 L Pulse Oximetry 93 Oxygen Delivery Fraction of Inspired Oxygen 01/24/24 22:00 01/24/24 22:00 01/24/24 23:00 Temperature Pulse Rate 67 67 65 Respiratory Rate 26 H 26 H 26 H Blood Pressure 127/58 L 130/57 L Pulse Oximetry Oxygen Delivery Fraction of Inspired Oxygen 01/24/24 22:55 01/25/24 00:00 01/25/24 00:00 Temperature Pulse Rate 64 63 67 Respiratory Rate 26 H 26 H Blood Pressure 128/57 L Pulse Oximetry 95 Oxygen Delivery Mechanical Ventilation Fraction of Inspired Oxygen 70 01/25/24 00:00 01/25/24 00:00 01/25/24 00:00 Temperature 36.5 C Pulse Rate 63 63 63 Respiratory Rate 26 H 26 H Blood Pressure 128/57 L Pulse Oximetry 96 Oxygen Delivery Fraction of Inspired Oxygen 01/25/24 01:00 01/25/24 02:00 01/25/24 02:00 Temperature Pulse Rate 62 66 65 Respiratory Rate 26 H 26 H 26 H Blood Pressure 124/56 L 124/57 L Pulse Oximetry Oxygen Delivery Fraction of Inspired Oxygen 01/25/24 02:00 01/25/24 01:39 01/25/24 01:39 Temperature Pulse Rate 66 62 60 Respiratory Rate 26 H 26 H Blood Pressure Pulse Oximetry 100 Oxygen Delivery Mechanical Ventilation Fraction of Inspired Oxygen 70 01/25/24 00:00 01/25/24 00:00 01/25/24 02:00 Temperature Pulse Rate 63 64 Respiratory Rate 26 H Blood Pressure Pulse Oximetry 96 Oxygen Delivery Fraction of Inspired Oxygen 70 70 01/25/24 02:00 01/25/24 02:37 01/25/24 02:41 Temperature 36.3 C L Pulse Rate 64 66 66 Respiratory Rate 26 H 26 H 26 H Blood Pressure 124/57 L Pulse Oximetry 96 Oxygen Delivery Fraction of Inspired Oxygen 01/25/24 03:00 01/25/24 04:00 01/25/24 04:00 Temperature Pulse Rate 65 64 64 Respiratory Rate 26 H 26 H 26 H Blood Pressure 120/58 L 126/59 L Pulse Oximetry Oxygen Delivery Fraction of Inspired Oxygen 01/25/24 04:00 01/25/24 05:08 01/25/24 05:00 Temperature Pulse Rate 65 68 67 Respiratory Rate 26 H 26 H Blood Pressure 118/52 L Pulse Oximetry 98 Oxygen Delivery Mechanical Ventilation Fraction of Inspired Oxygen 70 01/25/24 04:27 01/25/24 05:20 01/25/24 06:00 Temperature Pulse Rate 67 67 69 Respiratory Rate 26 H 26 H 26 H Blood Pressure Pulse Oximetry Oxygen Delivery Fraction of Inspired Oxygen 01/25/24 06:00 01/25/24 06:00 01/25/24 04:00 Temperature Pulse Rate 67 69 64 Respiratory Rate 26 H 26 H 26 H Blood Pressure 111/51 L Pulse Oximetry 95 Oxygen Delivery Mechanical Ventilation Fraction of Inspired Oxygen 70 01/25/24 04:00 01/25/24 04:00 01/25/24 04:00 Temperature 36.2 C L Pulse Rate 64 64 Respiratory Rate 26 H Blood Pressure 126/59 L Pulse Oximetry 95 Oxygen Delivery Fraction of Inspired Oxygen 70 01/25/24 06:00 01/25/24 06:00 01/25/24 07:00 Temperature 36.1 C L Pulse Rate 67 68 68 Respiratory Rate 26 H 26 H Blood Pressure 111/51 L 114/57 L Pulse Oximetry 94 Oxygen Delivery Fraction of Inspired Oxygen 01/25/24 07:53 01/25/24 07:57 01/25/24 08:01 Temperature Pulse Rate 66 67 69 Respiratory Rate 26 H 26 H Blood Pressure 120/59 L Pulse Oximetry 96 Oxygen Delivery Mechanical Ventilation Fraction of Inspired Oxygen 70 01/25/24 08:09 01/25/24 08:00 01/25/24 08:00 Temperature Pulse Rate 74 69 Respiratory Rate 26 H 26 H Blood Pressure Pulse Oximetry 95 Oxygen Delivery Mechanical Ventilation Fraction of Inspired Oxygen 70 70 01/25/24 08:00 Temperature 36.4 C L Pulse Rate 69 Respiratory Rate 26 H Blood Pressure 131/59 L Pulse Oximetry 95 Oxygen Delivery Fraction of Inspired Oxygen Intake/Output Intake/Output: Intake & Output 01/22/24 01/23/24 01/24/24 01/25/24 23:59 23:59 23:59 23:59 Intake Total 2392.7 2688.9 3180.9 684.0 Output Total 550 1000 1400 875 Balance 1842.7 1688.9 1780.9 -191.0 Meds/Results Medications: Active Medications Generic Name Dose Route Start Last Admin Trade Name Jorgeq PRN Reason Stop Dose Admin Acetaminophen 650 mg 01/20/24 10:08 01/20/24 10:29 Acetaminophen 325 Mg Tablet PO 650 mg Q4H PRN Administration Mild Pain (1-3) or Fever Albuterol/Ipratropium 3 ml 01/22/24 14:00 01/25/24 07:53 Ipratropium 0.5 Mg/Albuterol Sulfate 2.5 Mg Ampul.Neb 3 Ml INHALATION 3 ml Q6HRT EDMOND Administration Aspirin 81 mg 01/19/24 08:00 01/25/24 08:05 Aspirin 81 Mg Chewable Tablet PO 81 mg DAILY@0800 EDMOND Administration Atorvastatin Calcium 40 mg 01/19/24 09:00 01/25/24 08:05 Atorvastatin 40 Mg Tablet PO 40 mg DAILY EDMOND Administration Clopidogrel Bisulfate 75 mg 01/19/24 09:00 01/25/24 08:05 Clopidogrel Bisulfate 75 Mg Tablet PO 75 mg DAILY EDMOND Administration Dextrose 12.5 gm 01/18/24 23:28 Dextrose 50% 25 Gm/50 Ml Syringe IV PUSH PRN PRN Hypoglycemia Protocol Glucagon 1 mg 01/18/24 23:28 Glucagon For Inj 1 Mg Vial IM PRN PRN Hypoglycemia Protocol Glucose 15 gm 01/18/24 23:28 Glucose Oral Gel 15 Gm Of Glucse In 37.5 Gm Tube PO PRN PRN Hypoglycemia Protocol Heparin Sodium (Porcine) 4,500 units 01/18/24 23:25 Heparin Sodium 5,000 Units/Ml Vial IV PUSH PRN PRN aPTT less than 55 seconds Heparin Sodium (Porcine) 2,500 units 01/18/24 23:25 01/24/24 06:17 Heparin Sodium 5,000 Units/Ml Vial IV PUSH 2,500 units PRN PRN Administration aPTT 55 - 70 seconds Hydrocortisone Sodium Succinate 50 mg 01/21/24 12:05 01/25/24 05:32 Hydrocortisone Sodium Succinate 100 Mg/2 Ml Vial IV PUSH 01/26/24 12:04 50 mg Q6H EDMOND Administration Ceftriaxone Sodium 1 gm in 50 mls @ 100 mls/hr 01/19/24 17:00 01/24/24 16:55 Rocephin 1 Gm/Ns 50 Ml IVPB Infused Q24H EDMOND Infusion Heparin Sodium/Dextrose 25,000 units in 250 mls @ 9 mls/hr 01/18/24 23:25 01/25/24 06:25 Heparin Sodium/D5w 100 Units/Ml IV CONT 900 units/hr .Q24H EDMOND 9 mls/hr Titration Protocol 900 UNITS/HR Dextrose 1,000 mls @ 100 mls/hr 01/18/24 23:28 Dextrose 5% 1,000 Ml IVPB PRN PRN Hypoglycemia Protocol Fentanyl Citrate 2,500 mcg in 250 mls @ 17.2 mls/hr 01/21/24 07:40 01/25/24 06:00 Fentanyl 2,500 Mcg/Ns 250 Ml IV CONT 175 mcg/hr .[id number] EDMOND 17.5 mls/hr Titration Protocol 172 MCG/HR Midazolam HCl 100 mg in 100 mls @ 8 mls/hr 01/21/24 07:40 01/25/24 06:00 Versed 100 Mg/Ns 100 Ml IV CONT 8 mg/hr .[id number] EDMOND 8 mls/hr Titration Protocol 8 MG/HR Norepinephrine Bitartrate 8 mg in 250 mls @ 9.375 mls/hr 01/22/24 08:05 01/24/24 11:13 Levophed 8 Mg/D5w 250 Ml IV CONT Not Given .Q24H EDMOND Protocol 5 MCG/MIN Metronidazole 500 mg in 100 mls @ 100 mls/hr 01/23/24 08:00 01/25/24 08:06 Flagyl 500 Mg/Iso Soln 100 Ml IVPB 100 mls/hr Q8H EDMOND Administration Insulin Human Regular 100 100 mls @ 5 mls/hr 01/23/24 08:15 01/25/24 08:03 units/ Sodium Chloride IV CONT 5 units/hr .Q20H EDMOND 5 mls/hr Titration Protocol 5 UNITS/HR Cisatracurium Besylate 200 mg/ 100 mls @ 0 mls/hr 01/24/24 00:05 01/25/24 08:01 Dextrose IV CONT 0 mcg/kg/min .Q0M EDMOND 0 mls/hr Titration Protocol Insulin Aspart 4 - 8 units 01/19/24 12:00 01/23/24 04:27 Insulin Aspart (*Bkc) 100 Units/Ml SUB-Q 8 units Q4H EDMOND Administration Protocol Insulin Glargine 65 units 01/25/24 09:00 01/25/24 08:28 Insulin Glargine (*Bkc) 100 Units/Ml SUB-Q 65 units Q12HR EDMOND Administration Levothyroxine Sodium 112 mcg 01/19/24 06:30 01/25/24 05:31 Levothyroxine Sodium 112 Mcg Tablet PO 112 mcg DAILY@0630 EDMOND Administration Metoclopramide HCl 10 mg 01/25/24 12:00 Metoclopramide Hcl 10 Mg/10 Ml Soln Udc FEED TUBE Q6HR [facility] Midazolam HCl 2 mg 01/21/24 07:40 01/23/24 09:38 Midazolam Hcl (*Crx) 2 Mg/2 Ml Vial IV PUSH 2 mg Q5M PRN Administration ventilator asynchrony Midazolam HCl 4 mg 01/21/24 09:35 01/23/24 23:35 Midazolam Hcl (*Crx) 2 Mg/2 Ml Vial IV PUSH 4 mg PRN PRN Administration Sedation Multi-Ingred Cream/Lotion/Oil/Oint 1 applic 01/21/24 09:00 01/25/24 08:30 Mineral Oil/White Petrolatum Ointment EACH EYE 1 applic Q12HR EDMOND Administration Ondansetron HCl 4 mg 01/18/24 22:13 Ondansetron Inj 4 Mg/2 Ml Vial IV PUSH Q4H PRN Nausea Pantoprazole Sodium 40 mg 01/19/24 09:00 01/25/24 08:05 Pantoprazole Sodium Iv 40 Mg Vial IV PUSH 40 mg Q12HR EDMOND Administration Polyethylene Glycol 17 gm 01/24/24 09:00 01/25/24 08:06 Polyethylene Glycol 3350 17 Gm Powd.Pack PO 17 gm QAM EDMOND Administration Radiology Results: ITS Impressions Chest/Abdomen/Pelvis CTA 01/18/24 18:30 IMPRESSION: Nonocclusive acute subsegmental pulmonary embolus in the left lower lobe. Very small clot burden. No evidence of right heart strain. Left lower lobe pneumonia. Mild hepatomegaly. Possible cystitis. Otherwise, no acute abdominopelvic process detected. Head CT 01/19/24 05:47 Impression: No intracranial hemorrhage, mass, or acute infarct. Atrophy and chronic white matter changes, as above. Venous Doppler Study 01/19/24 15:06 IMPRESSION: Negative bilateral lower extremity venous US. No deep vein thrombosis. Chest/Abdomen/Pelvis CT 01/22/24 12:43 IMPRESSION: Worsening respiratory status with bibasilar consolidation and interstitial thickening with patchy groundglass opacification bilaterally -findings suggesting ARDS. Mural thickening within the rectosigmoid colon with multiple diverticula and prominence of the vasa recta, possibly early diverticulitis. Interval development of perihepatic fluid, compared with previous study. Renal Ultrasound 01/24/24 12:05 IMPRESSION: 1. Normal kidneys without hydronephrosis. Chest X-Ray 01/25/24 06:35 IMPRESSION: 1. Diffuse bilateral lung disease with lower lung predominance and some improvement on the left. Differential includes pneumonia and/or ARDS. 2. Likely decreasing small left pleural effusion. Labs Labs: Laboratory Results - last 24 hr 01/19/24 01/24/24 01/24/24 02:00 09:03 10:01 WBC RBC Hgb Hct MCV MCH MCHC RDW Plt Count MPV APTT Puncture Site ABG pH ABG pCO2 ABG pO2 ABG PO2/FiO2 Ratio ABG HCO3 ABG O2 Saturation ABG O2 Content ABG Base Excess A-a Gradient Oxyhemoglobin Carboxyhemoglobin Methemoglobin Reduced Hemoglobin Total Hemoglobin O2 Delivery Device O2 Liters/Min Minute Volume Vent Rate Vent Mode FiO2 Tidal Volume PEEP Peak Inspir Pressure Pressure Support Sodium Potassium Chloride Carbon Dioxide Anion Gap BUN Creatinine Estim Creat Clear Calc Estimated GFR Glucose POC Capillary Glucose 281 H 256 H Calcium Magnesium Total Bilirubin AST ALT Alkaline Phosphatase Total Protein Albumin Urine Color Urine Appearance Urine pH Ur Specific [place] Urine Protein Urine Glucose (UA) Urine Ketones Ur Blood (Man) Urine Nitrate Urine Bilirubin Urine Urobilinogen Add Ur Microanalysis Leukocyte Esterase Rfl Urine RBC Urine WBC Ur Squamous Epith Cells Amorphous Sediment Urine Bacteria Urine Casts Urine Eosinophils U Random Total Protein Ur Random Sodium Ur Random Urea Urine Creatinine Protein/Creat Ratio 2 Ur L.pneumophila Ag Not detected 01/24/24 01/24/24 01/24/24 10:17 10:17 10:17 WBC RBC Hgb Hct MCV MCH MCHC RDW Plt Count MPV APTT Puncture Site ABG pH ABG pCO2 ABG pO2 ABG PO2/FiO2 Ratio ABG HCO3 ABG O2 Saturation ABG O2 Content ABG Base Excess A-a Gradient Oxyhemoglobin Carboxyhemoglobin Methemoglobin Reduced Hemoglobin Total Hemoglobin O2 Delivery Device O2 Liters/Min Minute Volume Vent Rate Vent Mode FiO2 Tidal Volume PEEP Peak Inspir Pressure Pressure Support Sodium Potassium Chloride Carbon Dioxide Anion Gap BUN Creatinine Estim Creat Clear Calc Estimated GFR Glucose POC Capillary Glucose Calcium Magnesium Total Bilirubin AST ALT Alkaline Phosphatase Total Protein Albumin Urine Color Yellow Urine Appearance Turbid H Urine pH 5.0 Ur Specific [place] 1.015 Urine Protein 1+ H Urine Glucose (UA) 1+ H Urine Ketones Negative Ur Blood (Man) 2+ H Urine Nitrate Negative Urine Bilirubin Negative Urine Urobilinogen 0.2 Add Ur Microanalysis Reviewed Leukocyte Esterase Rfl Negative Urine RBC 11-20 H Urine WBC 6-10 H Ur Squamous Epith Cells Few Amorphous Sediment Few H Urine Bacteria None seen Urine Casts 11-20 Urine Eosinophils None seen U Random Total Protein 37 37 Ur Random Sodium 13 Ur Random Urea 691 Urine Creatinine 48.8 47.8 Protein/Creat Ratio 2 0.77 H Ur L.pneumophila Ag 01/24/24 01/24/24 01/24/24 11:07 12:02 12:05 WBC 17.6 H RBC 2.23 L Hgb 7.0 L Hct 21.8 L MCV 97.8 MCH 31.4 MCHC 32.1 RDW 15.3 H Plt Count 204 MPV 11.6 H APTT 96.4 H Puncture Site ABG pH ABG pCO2 ABG pO2 ABG PO2/FiO2 Ratio ABG HCO3 ABG O2 Saturation ABG O2 Content ABG Base Excess A-a Gradient Oxyhemoglobin Carboxyhemoglobin Methemoglobin Reduced Hemoglobin Total Hemoglobin O2 Delivery Device O2 Liters/Min Minute Volume Vent Rate Vent Mode FiO2 Tidal Volume PEEP Peak Inspir Pressure Pressure Support Sodium Potassium Chloride Carbon Dioxide Anion Gap BUN Creatinine Estim Creat Clear Calc Estimated GFR Glucose POC Capillary Glucose 246 H 234 H Calcium Magnesium Total Bilirubin AST ALT Alkaline Phosphatase Total Protein Albumin Urine Color Urine Appearance Urine pH Ur Specific [place] Urine Protein Urine Glucose (UA) Urine Ketones Ur Blood (Man) Urine Nitrate Urine Bilirubin Urine Urobilinogen Add Ur Microanalysis Leukocyte Esterase Rfl Urine RBC Urine WBC Ur Squamous Epith Cells Amorphous Sediment Urine Bacteria Urine Casts Urine Eosinophils U Random Total Protein Ur Random Sodium Ur Random Urea Urine Creatinine Protein/Creat Ratio 2 Ur L.pneumophila Ag 01/24/24 01/24/24 01/24/24 13:04 14:01 15:01 WBC RBC Hgb Hct MCV MCH MCHC RDW Plt Count MPV APTT Puncture Site ABG pH ABG pCO2 ABG pO2 ABG PO2/FiO2 Ratio ABG HCO3 ABG O2 Saturation ABG O2 Content ABG Base Excess A-a Gradient Oxyhemoglobin Carboxyhemoglobin Methemoglobin Reduced Hemoglobin Total Hemoglobin O2 Delivery Device O2 Liters/Min Minute Volume Vent Rate Vent Mode FiO2 Tidal Volume PEEP Peak Inspir Pressure Pressure Support Sodium Potassium Chloride Carbon Dioxide Anion Gap BUN Creatinine Estim Creat Clear Calc Estimated GFR Glucose POC Capillary Glucose 214 H 213 H 186 H Calcium Magnesium Total Bilirubin AST ALT Alkaline Phosphatase Total Protein Albumin Urine Color Urine Appearance Urine pH Ur Specific [place] Urine Protein Urine Glucose (UA) Urine Ketones Ur Blood (Man) Urine Nitrate Urine Bilirubin Urine Urobilinogen Add Ur Microanalysis Leukocyte Esterase Rfl Urine RBC Urine WBC Ur Squamous Epith Cells Amorphous Sediment Urine Bacteria Urine Casts Urine Eosinophils U Random Total Protein Ur Random Sodium Ur Random Urea Urine Creatinine Protein/Creat Ratio 2 Ur L.pneumophila Ag 01/24/24 01/24/24 01/24/24 16:09 17:06 18:01 WBC RBC Hgb Hct MCV MCH MCHC RDW Plt Count MPV APTT Puncture Site ABG pH ABG pCO2 ABG pO2 ABG PO2/FiO2 Ratio ABG HCO3 ABG O2 Saturation ABG O2 Content ABG Base Excess A-a Gradient Oxyhemoglobin Carboxyhemoglobin Methemoglobin Reduced Hemoglobin Total Hemoglobin O2 Delivery Device O2 Liters/Min Minute Volume Vent Rate Vent Mode FiO2 Tidal Volume PEEP Peak Inspir Pressure Pressure Support Sodium Potassium Chloride Carbon Dioxide Anion Gap BUN Creatinine Estim Creat Clear Calc Estimated GFR Glucose POC Capillary Glucose 184 H 212 H 230 H Calcium Magnesium Total Bilirubin AST ALT Alkaline Phosphatase Total Protein Albumin Urine Color Urine Appearance Urine pH Ur Specific [place] Urine Protein Urine Glucose (UA) Urine Ketones Ur Blood (Man) Urine Nitrate Urine Bilirubin Urine Urobilinogen Add Ur Microanalysis Leukocyte Esterase Rfl Urine RBC Urine WBC Ur Squamous Epith Cells Amorphous Sediment Urine Bacteria Urine Casts Urine Eosinophils U Random Total Protein Ur Random Sodium Ur Random Urea Urine Creatinine Protein/Creat Ratio 2 Ur L.pneumophila Ag 01/24/24 01/24/24 01/24/24 18:09 19:00 19:59 WBC 18.5 H RBC 2.24 L Hgb 7.0 L Hct 21.8 L MCV 97.3 MCH 31.3 MCHC 32.1 RDW 15.3 H Plt Count 214 MPV 11.3 H APTT 91.5 H Puncture Site ABG pH ABG pCO2 ABG pO2 ABG PO2/FiO2 Ratio ABG HCO3 ABG O2 Saturation ABG O2 Content ABG Base Excess A-a Gradient Oxyhemoglobin Carboxyhemoglobin Methemoglobin Reduced Hemoglobin Total Hemoglobin O2 Delivery Device O2 Liters/Min Minute Volume Vent Rate Vent Mode FiO2 Tidal Volume PEEP Peak Inspir Pressure Pressure Support Sodium Potassium Chloride Carbon Dioxide Anion Gap BUN Creatinine Estim Creat Clear Calc Estimated GFR Glucose POC Capillary Glucose 226 H 249 H Calcium Magnesium Total Bilirubin AST ALT Alkaline Phosphatase Total Protein Albumin Urine Color Urine Appearance Urine pH Ur Specific [place] Urine Protein Urine Glucose (UA) Urine Ketones Ur Blood (Man) Urine Nitrate Urine Bilirubin Urine Urobilinogen Add Ur Microanalysis Leukocyte Esterase Rfl Urine RBC Urine WBC Ur Squamous Epith Cells Amorphous Sediment Urine Bacteria Urine Casts Urine Eosinophils U Random Total Protein Ur Random Sodium Ur Random Urea Urine Creatinine Protein/Creat Ratio 2 Ur L.pneumophila Ag 01/24/24 01/24/24 01/24/24 21:03 22:03 23:08 WBC RBC Hgb Hct MCV MCH MCHC RDW Plt Count MPV APTT Puncture Site ABG pH ABG pCO2 ABG pO2 ABG PO2/FiO2 Ratio ABG HCO3 ABG O2 Saturation ABG O2 Content ABG Base Excess A-a Gradient Oxyhemoglobin Carboxyhemoglobin Methemoglobin Reduced Hemoglobin Total Hemoglobin O2 Delivery Device O2 Liters/Min Minute Volume Vent Rate Vent Mode FiO2 Tidal Volume PEEP Peak Inspir Pressure Pressure Support Sodium Potassium Chloride Carbon Dioxide Anion Gap BUN Creatinine Estim Creat Clear Calc Estimated GFR Glucose POC Capillary Glucose 246 H 258 H 244 H Calcium Magnesium Total Bilirubin AST ALT Alkaline Phosphatase Total Protein Albumin Urine Color Urine Appearance Urine pH Ur Specific [place] Urine Protein Urine Glucose (UA) Urine Ketones Ur Blood (Man) Urine Nitrate Urine Bilirubin Urine Urobilinogen Add Ur Microanalysis Leukocyte Esterase Rfl Urine RBC Urine WBC Ur Squamous Epith Cells Amorphous Sediment Urine Bacteria Urine Casts Urine Eosinophils U Random Total Protein Ur Random Sodium Ur Random Urea Urine Creatinine Protein/Creat Ratio 2 Ur L.pneumophila Ag 01/25/24 01/25/24 01/25/24 00:10 01:03 02:03 WBC RBC Hgb Hct MCV MCH MCHC RDW Plt Count MPV APTT Puncture Site ABG pH ABG pCO2 ABG pO2 ABG PO2/FiO2 Ratio ABG HCO3 ABG O2 Saturation ABG O2 Content ABG Base Excess A-a Gradient Oxyhemoglobin Carboxyhemoglobin Methemoglobin Reduced Hemoglobin Total Hemoglobin O2 Delivery Device O2 Liters/Min Minute Volume Vent Rate Vent Mode FiO2 Tidal Volume PEEP Peak Inspir Pressure Pressure Support Sodium Potassium Chloride Carbon Dioxide Anion Gap BUN Creatinine Estim Creat Clear Calc Estimated GFR Glucose POC Capillary Glucose 222 H 212 H 186 H Calcium Magnesium Total Bilirubin AST ALT Alkaline Phosphatase Total Protein Albumin Urine Color Urine Appearance Urine pH Ur Specific [place] Urine Protein Urine Glucose (UA) Urine Ketones Ur Blood (Man) Urine Nitrate Urine Bilirubin Urine Urobilinogen Add Ur Microanalysis Leukocyte Esterase Rfl Urine RBC Urine WBC Ur Squamous Epith Cells Amorphous Sediment Urine Bacteria Urine Casts Urine Eosinophils U Random Total Protein Ur Random Sodium Ur Random Urea Urine Creatinine Protein/Creat Ratio 2 Ur L.pneumophila Ag 01/25/24 01/25/24 01/25/24 03:06 03:57 05:11 WBC RBC Hgb Hct MCV MCH MCHC RDW Plt Count MPV APTT Puncture Site ABG pH ABG pCO2 ABG pO2 ABG PO2/FiO2 Ratio ABG HCO3 ABG O2 Saturation ABG O2 Content ABG Base Excess A-a Gradient Oxyhemoglobin Carboxyhemoglobin Methemoglobin Reduced Hemoglobin Total Hemoglobin O2 Delivery Device O2 Liters/Min Minute Volume Vent Rate Vent Mode FiO2 Tidal Volume PEEP Peak Inspir Pressure Pressure Support Sodium Potassium Chloride Carbon Dioxide Anion Gap BUN Creatinine Estim Creat Clear Calc Estimated GFR Glucose POC Capillary Glucose 192 H 215 H 228 H Calcium Magnesium Total Bilirubin AST ALT Alkaline Phosphatase Total Protein Albumin Urine Color Urine Appearance Urine pH Ur Specific [place] Urine Protein Urine Glucose (UA) Urine Ketones Ur Blood (Man) Urine Nitrate Urine Bilirubin Urine Urobilinogen Add Ur Microanalysis Leukocyte Esterase Rfl Urine RBC Urine WBC Ur Squamous Epith Cells Amorphous Sediment Urine Bacteria Urine Casts Urine Eosinophils U Random Total Protein Ur Random Sodium Ur Random Urea Urine Creatinine Protein/Creat Ratio 2 Ur L.pneumophila Ag 01/25/24 01/25/24 01/25/24 05:13 05:28 06:09 WBC 19.4 H RBC 2.37 L Hgb 7.4 L Hct 22.9 L MCV 96.6 MCH 31.2 MCHC 32.3 RDW 15.3 H Plt Count 229 MPV 11.8 H APTT 106.8 H Puncture Site Right radial ABG pH 7.344 L ABG pCO2 45.5 H ABG pO2 79.9 L ABG PO2/FiO2 Ratio 1.14 ABG HCO3 24.2 ABG O2 Saturation 95.2 ABG O2 Content 11.0 L ABG Base Excess -1.5 A-a Gradient 370.3 Oxyhemoglobin 94.0 Carboxyhemoglobin 0.6 Methemoglobin 0.1 Reduced Hemoglobin 5.3 H Total Hemoglobin 8.2 L O2 Delivery Device Ventilator O2 Liters/Min Not Reportable Minute Volume Not Reportable Vent Rate 26 Vent Mode Cmv FiO2 70 Tidal Volume 360 PEEP 12 Peak Inspir Pressure Not Reportable Pressure Support Not Reportable Sodium 147 H Potassium 4.0 Chloride 106 Carbon Dioxide 26 Anion Gap 15 H BUN 115 H D Creatinine 3.00 H Estim Creat Clear Calc 14 Estimated GFR 15 L Glucose 242 H POC Capillary Glucose 262 H Calcium 7.7 L Magnesium 2.3 Total Bilirubin 0.6 AST 33 ALT 17 Alkaline Phosphatase 66 Total Protein 7.0 Albumin 4.1 Urine Color Urine Appearance Urine pH Ur Specific [place] Urine Protein Urine Glucose (UA) Urine Ketones Ur Blood (Man) Urine Nitrate Urine Bilirubin Urine Urobilinogen Add Ur Microanalysis Leukocyte Esterase Rfl Urine RBC Urine WBC Ur Squamous Epith Cells Amorphous Sediment Urine Bacteria Urine Casts Urine Eosinophils U Random Total Protein Ur Random Sodium Ur Random Urea Urine Creatinine Protein/Creat Ratio 2 Ur L.pneumophila Ag 01/25/24 01/25/24 07:01 07:57 WBC RBC Hgb Hct MCV MCH MCHC RDW Plt Count MPV APTT Puncture Site ABG pH ABG pCO2 ABG pO2 ABG PO2/FiO2 Ratio ABG HCO3 ABG O2 Saturation ABG O2 Content ABG Base Excess A-a Gradient Oxyhemoglobin Carboxyhemoglobin Methemoglobin Reduced Hemoglobin Total Hemoglobin O2 Delivery Device O2 Liters/Min Minute Volume Vent Rate Vent Mode FiO2 Tidal Volume PEEP Peak Inspir Pressure Pressure Support Sodium Potassium Chloride Carbon Dioxide Anion Gap BUN Creatinine Estim Creat Clear Calc Estimated GFR Glucose POC Capillary Glucose 279 H 301 H Calcium Magnesium Total Bilirubin AST ALT Alkaline Phosphatase Total Protein Albumin Urine Color Urine Appearance Urine pH Ur Specific [place] Urine Protein Urine Glucose (UA) Urine Ketones Ur Blood (Man) Urine Nitrate Urine Bilirubin Urine Urobilinogen Add Ur Microanalysis Leukocyte Esterase Rfl Urine RBC Urine WBC Ur Squamous Epith Cells Amorphous Sediment Urine Bacteria Urine Casts Urine Eosinophils U Random Total Protein Ur Random Sodium Ur Random Urea Urine Creatinine Protein/Creat Ratio 2 Ur L.pneumophila Ag Quality VTE Prophylaxis VTE prophylaxis: pharmacologic ordered (Heparin GGT per protocol)
[2024-01-25 09:11] LABS: Glucose Point of Care 303 mg/dl (65-105)
[2024-01-25 10:07] LABS: Glucose Point of Care 277 mg/dl (65-105)
--- NOTE | 2024-01-25 10:33 | P.PNNP_ITS ---
Progress Note: A&P Assessment and Plan (1) Acute kidney injury: Code(s): N17.9 - Acute kidney failure, unspecified Status: Acute Assessment and Plan: * initial improvement on admission (1.5mg/dl to 0.9mg/dl) * then worsening again noted on 01/21 (up to 1.3mg/dl and subsequently 2.3mg/dl on 01/22) * suspect multifactorial etiology: * contrast exposure * infection/sepsis * hemodynamic instability/shock * possible prerenal factors * diuretic use prior to admission * hypoxia * other(?) * evaluation to date noted: * CPK mildly elevated * UA with blood/protein and possible infection * urine electrolytes prerenal * moderate proteiunuria * renal ultrasound normal * still making reasonable urine output * diuretics PRN * azotemia noted but likely secondary to steroids and catabolic state * remains at risk for PSYCHIATRIC TECH/dialysis * follow trend of repeat labs and UOP (2) Acute respiratory failure: Code(s): J96.00 - Acute respiratory failure, unspecified whether with hypoxia or hypercapnia Status: Acute Assessment and Plan: * thought to be secondary to a combination of pneumonia and pulmonary embolus +/- pulmonary edema * appears to have progressed to ARDS * intubated and placed on mechanical ventilation on 01/20 * recent CT of chest noted * requiring paralytics with sedation at this time * on bronchodilator therapy, steroids, and antibiotics * lasix PRN * ventilator weaning when able (3) Septic shock: Code(s): A41.9 - Sepsis, unspecified organism; R65.21 - Severe sepsis with septic shock Status: Acute Assessment and Plan: * as noted on admission - hypotension, lactic acidosis, fevers, and hypoxia/respiratory failure * presumed source = pneumonia +/- diverticulitiis * s/p IVF resuscitation and on vasopressor support (weaned off currently) * follow culture data * on antibiotic therapy (4) Community acquired pneumonia: Qualifiers: Laterality: left Lung location: lower lobe of lung Qualified Code(s): J18.9 - Pneumonia, unspecified organism Code(s): J18.9 - Pneumonia, unspecified organism Status: Acute Assessment and Plan: * based on evidence to date * viral swab for RSV/COVID/influenza negative * follow culture data * on antibiotics (5) Pulmonary embolism: Code(s): I26.99 - Other pulmonary embolism without acute cor pulmonale Status: Acute Assessment and Plan: * admission CTA of chest with nonocclusive acute subsegmental PE in the left lower lobe with very small clot burden * venous dopplers negative * on anticoagulation (6) Diverticulitis: Code(s): K57.92 - Diverticulitis of intestine, part unspecified, without perforation or abscess without bleeding Status: Acute Assessment and Plan: * CT abdomen pelvis with mural thickening within the rectosigmoid colon with multiple diverticula and prominence of the vasa recta, possibly early diverticulitis. Interval development of perihepatic fluid, compared with p revious study * follow culturs * remains on antibiotics (7) Anemia: Code(s): D64.9 - Anemia, unspecified Status: Acute Assessment and Plan: * presumably due to YESI and acute illness * no evidence of GI loss * PRBC transfusion per protocol * follow trend of H/H (8) Diabetes: Code(s): E11.9 - Type 2 diabetes mellitus without complications Status: Acute Assessment and Plan: * follow accu-cheks * glycemic control per [employer] worker/hospitalist Long extensive discussion (greater than 20 minutes) with the patient's family at bedside regarding her acute renal failure/acute kidney injury in conjunction wi th her acute illness. I voiced my concerns that there is a possibility that if her renal function continues to deteriorate or if she runs into issues related to hyperkalemia, worsening metabolic acidosis, volume overload, or uremia, she may require renal replacement therapy/dialysis. Currently, the patient appears to making fairly good urine output and she has no critical electrolyte abnormalities so no need for urgent dialysis at this time. They all appeared to voice understanding regarding these issues. Will continue to follow. Subjective Date/time seen: 01/25/24 10:33 Interval history: Follow-up for acute kidney injury/acute renal failure. Remains intubated/sedated/paralyzed and on mechanical ventilation; renal function/creatinine worse but still making reasonable urine (with no need for diuretics ) with relatively stability in her electrolytes at this time; remains hemodynamically stable without the need for vasopressor therapy; family at bedside and we discussed the situation. Exam Narrative: General: elderly but WD/WN female in NAD Heart: normal S1 and S2; no rub Lungs: coarse breath sounds throughout Abdomen: soft, nontender, nondistended, positive bowel sounds Extremities: no cyanosis or clubbing; no edema Skin: warm and dry Objective Data Vital Signs Vital Signs: Vital Signs Temp Pulse Resp BP Pulse Ox O2 Del Method FiO2 01/25/24 10:00 97.9 F 70 25 H 124/56 L 95 01/25/24 10:00 73 01/25/24 09:18 Mechanical Ventilation 65 01/25/24 08:00 74 01/25/24 08:00 69 26 H 01/25/24 09:04 75 28 H 01/25/24 08:00 69 26 H 01/25/24 08:00 97.5 F L 69 26 H 131/59 L 95 01/25/24 08:00 70 01/25/24 08:00 69 26 H 95 Mechanical Ventilation 70 01/25/24 08:09 74 26 H 01/25/24 08:01 69 26 H 120/59 L 01/25/24 07:57 67 96 Mechanical Ventilation 70 01/25/24 07:53 66 26 H 01/25/24 07:00 68 26 H 114/57 L 01/25/24 06:00 97 F L 68 26 H 111/51 L 94 01/25/24 06:00 67 01/25/24 04:00 97.1 F L 64 26 H 126/59 L 95 01/25/24 04:00 70 01/25/24 04:00 64 01/25/24 04:00 64 26 H 95 Mechanical Ventilation 70 01/25/24 06:00 69 26 H 01/25/24 06:00 67 26 H 111/51 L 01/25/24 06:00 69 26 H 01/25/24 05:20 67 26 H 01/25/24 04:27 67 26 H 01/25/24 05:00 67 26 H 118/52 L 01/25/24 05:08 68 98 Mechanical Ventilation 70 01/25/24 04:00 65 26 H 01/25/24 04:00 64 26 H 01/25/24 04:00 64 26 H 126/59 L 01/25/24 03:00 65 26 H 120/58 L 01/25/24 02:41 66 26 H 01/25/24 02:37 66 26 H 01/25/24 02:00 97.3 F L 64 26 H 124/57 L 96 01/25/24 02:00 64 01/25/24 00:00 70 01/25/24 00:00 63 26 H 96 70 01/25/24 01:39 60 26 H 01/25/24 01:39 62 100 Mechanical Ventilation 70 01/25/24 02:00 66 26 H 01/25/24 02:00 65 26 H 01/25/24 02:00 66 26 H 124/57 L 01/25/24 01:00 62 26 H 124/56 L 01/25/24 00:00 97.7 F 63 26 H 128/57 L 96 01/25/24 00:00 63 01/25/24 00:00 63 26 H 01/25/24 00:00 67 26 H 01/25/24 00:00 63 26 H 128/57 L 01/24/24 22:55 64 95 Mechanical Ventilation 70 01/24/24 23:00 65 26 H 130/57 L 01/24/24 22:00 67 26 H 127/58 L 01/24/24 22:00 67 26 H 01/24/24 22:00 66 26 H 01/24/24 19:52 73 26 H 01/24/24 22:00 98 F 68 26 H 127/58 L 93 01/24/24 22:00 68 01/24/24 20:40 72 26 H 88 L Mechanical Ventilation 70 01/24/24 20:00 98.5 F 68 26 H 126/58 L 93 01/24/24 20:00 60 01/24/24 20:00 68 01/24/24 20:00 68 26 H 93 Mechanical Ventilation 60 01/24/24 21:00 71 26 H 120/57 L 01/24/24 20:09 68 26 H 01/24/24 20:00 68 26 H 01/24/24 20:00 68 26 H 126/58 L 01/24/24 19:46 71 26 H 01/24/24 19:46 71 98 Mechanical Ventilation 60 01/24/24 19:00 66 26 H 128/58 L 01/24/24 18:00 68 26 H 123/60 01/24/24 18:00 68 26 H 01/24/24 18:00 68 26 H 01/24/24 18:00 68 01/24/24 18:00 98.6 F 68 26 H 123/60 94 01/24/24 17:00 73 26 H 116/57 L 01/24/24 16:00 74 01/24/24 16:40 73 92 Mechanical Ventilation 60 01/24/24 16:00 98.6 F 75 26 H 121/55 L 92 01/24/24 16:00 60 01/24/24 16:00 Mechanical Ventilation 60 01/24/24 16:00 75 26 H 121/55 L 01/24/24 16:00 75 26 H 01/24/24 16:00 75 26 H 01/24/24 15:00 76 26 H 125/60 Intake/Output Intake/Output: Intake & Output 01/22/24 01/23/24 01/24/24 01/25/24 23:59 23:59 23:59 23:59 Intake Total 2392.7 2688.9 3180.9 1096.7 Output Total 550 1000 1400 875 Balance 1842.7 1688.9 1780.9 221.7 Meds/Results Medications: Active Medications Generic Name Dose Route Start Last Admin Trade Name Jorgeq PRN Reason Stop Dose Admin Acetaminophen 650 mg 01/20/24 10:08 01/20/24 10:29 Acetaminophen 325 Mg Tablet PO 650 mg Q4H PRN Administration Mild Pain (1-3) or Fever Albuterol/Ipratropium 3 ml 01/22/24 14:00 01/25/24 14:30 Ipratropium 0.5 Mg/Albuterol Sulfate 2.5 Mg Ampul.Neb 3 Ml INHALATION 3 ml Q6HRT EDMOND Administration Aspirin 81 mg 01/19/24 08:00 01/25/24 08:05 Aspirin 81 Mg Chewable Tablet PO 81 mg DAILY@0800 EDMOND Administration Atorvastatin Calcium 40 mg 01/19/24 09:00 01/25/24 08:05 Atorvastatin 40 Mg Tablet PO 40 mg DAILY EDMOND Administration Clopidogrel Bisulfate 75 mg 01/19/24 09:00 01/25/24 08:05 Clopidogrel Bisulfate 75 Mg Tablet PO 75 mg DAILY EDMOND Administration Dextrose 12.5 gm 01/18/24 23:28 Dextrose 50% 25 Gm/50 Ml Syringe IV PUSH PRN PRN Hypoglycemia Protocol Glucagon 1 mg 01/18/24 23:28 Glucagon For Inj 1 Mg Vial IM PRN PRN Hypoglycemia Protocol Glucose 15 gm 01/18/24 23:28 Glucose Oral Gel 15 Gm Of Glucse In 37.5 Gm Tube PO PRN PRN Hypoglycemia Protocol Heparin Sodium (Porcine) 4,500 units 01/18/24 23:25 Heparin Sodium 5,000 Units/Ml Vial IV PUSH PRN PRN aPTT less than 55 seconds Heparin Sodium (Porcine) 2,500 units 01/18/24 23:25 01/24/24 06:17 Heparin Sodium 5,000 Units/Ml Vial IV PUSH 2,500 units PRN PRN Administration aPTT 55 - 70 seconds Hydrocortisone Sodium Succinate 50 mg 01/21/24 12:05 01/25/24 12:01 Hydrocortisone Sodium Succinate 100 Mg/2 Ml Vial IV PUSH 01/26/24 12:04 50 mg Q6H EDMOND Administration Ceftriaxone Sodium 1 gm in 50 mls @ 100 mls/hr 01/19/24 17:00 01/24/24 16:55 Rocephin 1 Gm/Ns 50 Ml IVPB Infused Q24H EDMOND Infusion Heparin Sodium/Dextrose 25,000 units in 250 mls @ 9 mls/hr 01/18/24 23:25 01/25/24 14:00 Heparin Sodium/D5w 100 Units/Ml IV CONT 900 units/hr .Q24H EDMOND 9 mls/hr Titration Protocol 900 UNITS/HR Dextrose 1,000 mls @ 100 mls/hr 01/18/24 23:28 Dextrose 5% 1,000 Ml IVPB PRN PRN Hypoglycemia Protocol Fentanyl Citrate 2,500 mcg in 250 mls @ 17.2 mls/hr 01/21/24 07:40 01/25/24 14:00 Fentanyl 2,500 Mcg/Ns 250 Ml IV CONT 175 mcg/hr .[id number] EDMOND 17.5 mls/hr Titration Protocol 172 MCG/HR Midazolam HCl 100 mg in 100 mls @ 8 mls/hr 01/21/24 07:40 01/25/24 14:00 Versed 100 Mg/Ns 100 Ml IV CONT 8 mg/hr .[id number] EDMOND 8 mls/hr Titration Protocol 8 MG/HR Norepinephrine Bitartrate 8 mg in 250 mls @ 9.375 mls/hr 01/22/24 08:05 01/25/24 13:13 Levophed 8 Mg/D5w 250 Ml IV CONT Not Given .Q24H EDMOND Protocol 5 MCG/MIN Metronidazole 500 mg in 100 mls @ 100 mls/hr 01/23/24 08:00 01/25/24 09:32 Flagyl 500 Mg/Iso Soln 100 Ml IVPB Infused Q8H EDMOND Infusion Insulin Human Regular 100 100 mls @ 1.5 mls/hr 01/23/24 08:15 01/25/24 13:58 units/ Sodium Chloride IV CONT 1.5 units/hr .Q24H EDMOND 1.5 mls/hr Titration Protocol 1.5 UNITS/HR Cisatracurium Besylate 200 mg/ 100 mls @ 0 mls/hr 01/24/24 00:05 01/25/24 12:00 Dextrose IV CONT 0 mcg/kg/min .Q0M EDMOND 0 mls/hr Titration Protocol Insulin Aspart 4 - 8 units 01/19/24 12:00 01/23/24 04:27 Insulin Aspart (*Bkc) 100 Units/Ml SUB-Q 8 units Q4H EDMOND Administration Protocol Insulin Glargine 65 units 01/25/24 09:00 01/25/24 08:28 Insulin Glargine (*Bkc) 100 Units/Ml SUB-Q 65 units Q12HR EDMOND Administration Levothyroxine Sodium 112 mcg 01/19/24 06:30 01/25/24 05:31 Levothyroxine Sodium 112 Mcg Tablet PO 112 mcg DAILY@0630 EDMOND Administration Metoclopramide HCl 10 mg 01/25/24 12:00 01/25/24 12:01 Metoclopramide Hcl 10 Mg/10 Ml Soln Udc FEED TUBE 10 mg Q6HR EDMOND Administration Midazolam HCl 2 mg 01/21/24 07:40 01/23/24 09:38 Midazolam Hcl (*Crx) 2 Mg/2 Ml Vial IV PUSH 2 mg Q5M PRN Administration ventilator asynchrony Midazolam HCl 4 mg 01/21/24 09:35 01/23/24 23:35 Midazolam Hcl (*Crx) 2 Mg/2 Ml Vial IV PUSH 4 mg PRN PRN Administration Sedation Multi-Ingred Cream/Lotion/Oil/Oint 1 applic 01/21/24 09:00 01/25/24 08:30 Mineral Oil/White Petrolatum Ointment EACH EYE 1 applic Q12HR EDMOND Administration Ondansetron HCl 4 mg 01/18/24 22:13 Ondansetron Inj 4 Mg/2 Ml Vial IV PUSH Q4H PRN Nausea Pantoprazole Sodium 40 mg 01/19/24 09:00 01/25/24 08:05 Pantoprazole Sodium Iv 40 Mg Vial IV PUSH 40 mg Q12HR EDMOND Administration Polyethylene Glycol 17 gm 01/24/24 09:00 01/25/24 08:06 Polyethylene Glycol 3350 17 Gm Powd.Pack PO 17 gm QAM EDMOND Administration Radiology Results: ITS Impressions Chest/Abdomen/Pelvis CTA 01/18/24 18:30 IMPRESSION: Nonocclusive acute subsegmental pulmonary embolus in the left lower lobe. Very small clot burden. No evidence of right heart strain. Left lower lobe pneumonia. Mild hepatomegaly. Possible cystitis. Otherwise, no acute abdominopelvic process detected. Head CT 01/19/24 05:47 Impression: No intracranial hemorrhage, mass, or acute infarct. Atrophy and chronic white matter changes, as above. Venous Doppler Study 01/19/24 15:06 IMPRESSION: Negative bilateral lower extremity venous US. No deep vein thrombosis. Chest/Abdomen/Pelvis CT 01/22/24 12:43 IMPRESSION: Worsening respiratory status with bibasilar consolidation and interstitial thi ckening with patchy groundglass opacification bilaterally -findings suggesting ARDS. Mural thickening within the rectosigmoid colon with multiple diverticula and prominence of the vasa recta, possibly early diverticulitis. Interval development of perihepatic fluid, compared with previous study. Renal Ultrasound 01/24/24 12:05 IMPRESSION: 1. Normal kidneys without hydronephrosis. Chest X-Ray 01/25/24 06:35 IMPRESSION: 1. Diffuse bilateral lung disease with lower lung predominance and some improvement on the left. Differential includes pneumonia and/or ARDS. 2. Likely decreasing small left pleural effusion. Labs Labs: Laboratory Tests 01/25/24 05:28 01/25/24 05:28 Calcium 7.7 L Magnesium 2.3 Total Bilirubin 0.6 AST 33 ALT 17 Alkaline Phosphatase 66 Total Protein 7.0 Albumin 4.1 Microbiology 01/23/24 21:31 Sputum Sputum Culture - Preliminary 01/18/24 16:56 Blood Blood Culture - Final 01/18/24 17:01 Blood Blood Culture - Final
--- NOTE | 2024-01-25 10:56 | P.PNIM_ITS ---
Progress Note: A&P Assessment and Plan (1) Acute respiratory failure: Code(s): J96.00 - Acute respiratory failure, unspecified whether with hypoxia or hypercapnia Status: Acute Assessment and Plan: Acute Respiratory failure secondary to pneumonia and PE. Patient now appears to have developed ARDS Patient had became CPAP dependent 100% FiO2. Lasix IV given without benefit. Her condition worsened requiring intubation 01/20. Post intubation, patient was coughing and gagging leading to desaturation hence was given paralytic Patient was placed in prone position CT Chest concerning for ARDS. Paralytic was stopped and resumed. She remains sedated. Paralytic held again BNP 4420. ABG 7.34/45/80 on MV. Continue Bronchodilators Continue Heparin drip. Continue IV abx. Continue steroids due to severity of pneumonia and ARDS PEEP set at 12. FiO2 is back up to 70%. Wean vent as tolerated. Appreciate rod puller and coiler input (2) Septic shock: Code(s): A41.9 - Sepsis, unspecified organism; R65.21 - Severe sepsis with septic shock Status: Acute Assessment and Plan: Patient presented with cough/SOB and found to have septic shock with HoTN, elevated lactic, fevers and hypoxia Received 30 mL/kg IV fluids and was started on Levophed Off IV fluids and vasopressors weaned off 01/18 WBC elevated but on steroids. PCT was 17 on admission BCx negative. Sputum pending. Continue ceftriaxone (01/17); completed Azithro (3) Community acquired pneumonia: Qualifiers: Laterality: left Lung location: lower lobe of lung Qualified Code(s): J18.9 - Pneumonia, unspecified organism Code(s): J18.9 - Pneumonia, unspecified organism Status: Acute Assessment and Plan: Patient with community-acquired pneumonia RSV, SARS-CoV-2 and influenza PCR negative Continue antibiotics as above (4) Acute kidney injury: Code(s): N17.9 - Acute kidney failure, unspecified Status: Acute Assessment and Plan: Patient presented with YESI likely related to hypotension, septic shock She was adequately fluid-resuscitated and came off of IV fluids Creatinine normalized initially but now back up to 3 with drop in urine output 550->1000 with Lasix ->1400 ->875mL so far today. BUN higher than expected at 115 due to steroids. Treated with Albumin. Hold on IV fluids due to patient's respiratory status and that she is fluid positive Lasix 80mg IV x1 given 01/22 Continue to monitor urine output, electrolytes and renal function (5) Diabetes: Code(s): E11.9 - Type 2 diabetes mellitus without complications Status: Acute Assessment and Plan: The patient's blood glucose was reviewed on 01/24 Glucose remains poorly controlled. Continue AccuCheks covering with sliding scale. Hypoglycemia protocol available as needed. Treated with Lantus and Insulin drip. Continue to monitor (6) Pulmonary embolism: Code(s): I26.99 - Other pulmonary embolism without acute cor pulmonale Status: Acute Assessment and Plan: Patient presents with SOB. CTA chest showing nonocclusive acute subsegmental PE in the left lower lobe with very small clot burden. No evidence of right heart strain. Venous Dopplers negative Echo showing EF 55-60%, grade I diastolic dysfunction. Continue heparin infusion (7) Electrolyte abnormality: Code(s): E87.8 - Other disorders of electrolyte and fluid balance, not elsewhere classified Status: Acute Assessment and Plan: Hyperkalemia resolved with treatment. Monitor electrolytes (8) Diverticulitis: Code(s): K57.92 - Diverticulitis of intestine, part unspecified, without perforation or abscess without bleeding Status: Acute Assessment and Plan: CT abdomen pelvis showed mural thickening within the rectosigmoid colon with multiple diverticula and prominence of the vasa recta, possibly early diverticulitis. Interval development of perihepatic fluid, compared with previous study. Currently on Rocephin and Flagyl. Plan Anemia - Probably related to above. Hgb did drop from 9 to 7.4 but stable in the 7 range. Iron studies normal in October. Follow and transfuse as needed. Liver Fibrosis - Liver fibrosis Fibro score of 0.61 (F3 Advanced Fibrosis). LFTs normal. CT scan on admission demonstrates heterogeneous attenuation of the liver that is borderline enlarged. Interval development of perihepatic fluid, when compared with previous study. Follow DVT prophylaxis: Heparin infusion Code Status: Full Subjective Date/time seen: 01/25/24 10:56 Interval history: 68yo female with HTN, CHF, DM and HLD here for cough and SOB. Off paralytic this morning. Still on heavy sedation. Minimal secretions. Tube feeding resumed at 20ml/hr. Residual at 90ml. Family in the room and they were updated. Review of Systems Review of Systems: ROS unobtainable: Yes unobtainable due to endotracheal tube Exam Narrative: AF 97.9 124/56 70 27 95% MV Gen -intubated and sedated HEENT -ET tube and OG tube secured. Chest -coarse inspir/expir breath sounds CV - RRR S1/S2. Telemetry showing no significant dysrhythmia Abd -soft. Obese. Protuberant but not tympanitic. Hypoactive bowel sounds. -Pressley secured draining clear yellow urine. Ext - No pedal edema Neuro -sedated Skin - Warm and dry Objective Data Vital Signs Vital Signs: Vital Signs - 24 hr 01/24/24 11:11 01/24/24 12:00 01/24/24 12:00 Temperature 97.9 F Pulse Rate 71 71 Respiratory Rate 26 H 26 H Blood Pressure 127/61 124/57 L Pulse Oximetry 95 Oxygen Delivery Fraction of Inspired Oxygen 60 01/24/24 12:00 01/24/24 12:00 01/24/24 12:00 Temperature Pulse Rate 71 71 71 Respiratory Rate 26 H 26 H 26 H Blood Pressure 124/57 L Pulse Oximetry Oxygen Delivery Fraction of Inspired Oxygen 01/24/24 12:00 01/24/24 12:00 01/24/24 13:19 Temperature Pulse Rate 72 70 Respiratory Rate Blood Pressure Pulse Oximetry 93 Oxygen Delivery Mechanical Ventilation Mechanical Ventilation Fraction of Inspired Oxygen 60 60 01/24/24 13:19 01/24/24 13:46 01/24/24 12:30 Temperature Pulse Rate 70 76 76 Respiratory Rate 26 H 26 H 26 H Blood Pressure Pulse Oximetry Oxygen Delivery Fraction of Inspired Oxygen 01/24/24 14:07 01/24/24 12:18 01/24/24 14:09 Temperature Pulse Rate 76 76 76 Respiratory Rate 26 H 26 H 26 H Blood Pressure Pulse Oximetry Oxygen Delivery Fraction of Inspired Oxygen 01/24/24 14:00 01/24/24 14:00 01/24/24 13:00 Temperature 98.1 F Pulse Rate 76 76 69 Respiratory Rate 26 H 26 H Blood Pressure 121/58 L 127/60 Pulse Oximetry 90 Oxygen Delivery Fraction of Inspired Oxygen 01/24/24 14:00 01/24/24 15:00 01/24/24 16:00 Temperature Pulse Rate 76 76 75 Respiratory Rate 26 H 26 H 26 H Blood Pressure 121/58 L 125/60 Pulse Oximetry Oxygen Delivery Fraction of Inspired Oxygen 01/24/24 16:00 01/24/24 16:00 01/24/24 16:00 Temperature Pulse Rate 75 75 Respiratory Rate 26 H 26 H Blood Pressure 121/55 L Pulse Oximetry Oxygen Delivery Mechanical Ventilation Fraction of Inspired Oxygen 60 01/24/24 16:00 01/24/24 16:00 01/24/24 16:40 Temperature 98.6 F Pulse Rate 75 73 Respiratory Rate 26 H Blood Pressure 121/55 L Pulse Oximetry 92 92 Oxygen Delivery Mechanical Ventilation Fraction of Inspired Oxygen 60 60 01/24/24 16:00 01/24/24 17:00 01/24/24 18:00 Temperature 98.6 F Pulse Rate 74 73 68 Respiratory Rate 26 H 26 H Blood Pressure 116/57 L 123/60 Pulse Oximetry 94 Oxygen Delivery Fraction of Inspired Oxygen 01/24/24 18:00 01/24/24 18:00 01/24/24 18:00 Temperature Pulse Rate 68 68 68 Respiratory Rate 26 H 26 H Blood Pressure Pulse Oximetry Oxygen Delivery Fraction of Inspired Oxygen 01/24/24 18:00 01/24/24 19:00 01/24/24 19:46 Temperature Pulse Rate 68 66 71 Respiratory Rate 26 H 26 H Blood Pressure 123/60 128/58 L Pulse Oximetry 98 Oxygen Delivery Mechanical Ventilation Fraction of Inspired Oxygen 60 01/24/24 19:46 01/24/24 20:00 01/24/24 20:00 Temperature Pulse Rate 71 68 68 Respiratory Rate 26 H 26 H 26 H Blood Pressure 126/58 L Pulse Oximetry Oxygen Delivery Fraction of Inspired Oxygen 01/24/24 20:09 01/24/24 21:00 01/24/24 20:00 Temperature Pulse Rate 68 71 68 Respiratory Rate 26 H 26 H 26 H Blood Pressure 120/57 L Pulse Oximetry 93 Oxygen Delivery Mechanical Ventilation Fraction of Inspired Oxygen 60 01/24/24 20:00 01/24/24 20:00 01/24/24 20:00 Temperature 98.5 F Pulse Rate 68 68 Respiratory Rate 26 H Blood Pressure 126/58 L Pulse Oximetry 93 Oxygen Delivery Fraction of Inspired Oxygen 60 01/24/24 20:40 01/24/24 22:00 01/24/24 22:00 Temperature 98 F Pulse Rate 72 68 68 Respiratory Rate 26 H 26 H Blood Pressure 127/58 L Pulse Oximetry 88 L 93 Oxygen Delivery Mechanical Ventilation Fraction of Inspired Oxygen 70 01/24/24 19:52 01/24/24 22:00 01/24/24 22:00 Temperature Pulse Rate 73 66 67 Respiratory Rate 26 H 26 H 26 H Blood Pressure Pulse Oximetry Oxygen Delivery Fraction of Inspired Oxygen 01/24/24 22:00 01/24/24 23:00 01/24/24 22:55 Temperature Pulse Rate 67 65 64 Respiratory Rate 26 H 26 H Blood Pressure 127/58 L 130/57 L Pulse Oximetry 95 Oxygen Delivery Mechanical Ventilation Fraction of Inspired Oxygen 70 01/25/24 00:00 01/25/24 00:00 01/25/24 00:00 Temperature Pulse Rate 63 67 63 Respiratory Rate 26 H 26 H 26 H Blood Pressure 128/57 L Pulse Oximetry Oxygen Delivery Fraction of Inspired Oxygen 01/25/24 00:00 01/25/24 00:00 01/25/24 01:00 Temperature 97.7 F Pulse Rate 63 63 62 Respiratory Rate 26 H 26 H Blood Pressure 128/57 L 124/56 L Pulse Oximetry 96 Oxygen Delivery Fraction of Inspired Oxygen 01/25/24 02:00 01/25/24 02:00 01/25/24 02:00 Temperature Pulse Rate 66 65 66 Respiratory Rate 26 H 26 H 26 H Blood Pressure 124/57 L Pulse Oximetry Oxygen Delivery Fraction of Inspired Oxygen 01/25/24 01:39 01/25/24 01:39 01/25/24 00:00 Temperature Pulse Rate 62 60 63 Respiratory Rate 26 H 26 H Blood Pressure Pulse Oximetry 100 96 Oxygen Delivery Mechanical Ventilation Fraction of Inspired Oxygen 70 70 01/25/24 00:00 01/25/24 02:00 01/25/24 02:00 Temperature 97.3 F L Pulse Rate 64 64 Respiratory Rate 26 H Blood Pressure 124/57 L Pulse Oximetry 96 Oxygen Delivery Fraction of Inspired Oxygen 70 01/25/24 02:37 01/25/24 02:41 01/25/24 03:00 Temperature Pulse Rate 66 66 65 Respiratory Rate 26 H 26 H 26 H Blood Pressure 120/58 L Pulse Oximetry Oxygen Delivery Fraction of Inspired Oxygen 01/25/24 04:00 01/25/24 04:00 01/25/24 04:00 Temperature Pulse Rate 64 64 65 Respiratory Rate 26 H 26 H 26 H Blood Pressure 126/59 L Pulse Oximetry Oxygen Delivery Fraction of Inspired Oxygen 01/25/24 05:08 01/25/24 05:00 01/25/24 04:27 Temperature Pulse Rate 68 67 67 Respiratory Rate 26 H 26 H Blood Pressure 118/52 L Pulse Oximetry 98 Oxygen Delivery Mechanical Ventilation Fraction of Inspired Oxygen 70 01/25/24 05:20 01/25/24 06:00 01/25/24 06:00 Temperature Pulse Rate 67 69 67 Respiratory Rate 26 H 26 H 26 H Blood Pressure 111/51 L Pulse Oximetry Oxygen Delivery Fraction of Inspired Oxygen 01/25/24 06:00 01/25/24 04:00 01/25/24 04:00 Temperature Pulse Rate 69 64 64 Respiratory Rate 26 H 26 H Blood Pressure Pulse Oximetry 95 Oxygen Delivery Mechanical Ventilation Fraction of Inspired Oxygen 70 01/25/24 04:00 01/25/24 04:00 01/25/24 06:00 Temperature 97.1 F L Pulse Rate 64 67 Respiratory Rate 26 H Blood Pressure 126/59 L Pulse Oximetry 95 Oxygen Delivery Fraction of Inspired Oxygen 70 01/25/24 06:00 01/25/24 07:00 01/25/24 07:53 Temperature 97 F L Pulse Rate 68 68 66 Respiratory Rate 26 H 26 H 26 H Blood Pressure 111/51 L 114/57 L Pulse Oximetry 94 Oxygen Delivery Fraction of Inspired Oxygen 01/25/24 07:57 01/25/24 08:01 01/25/24 08:09 Temperature Pulse Rate 67 69 74 Respiratory Rate 26 H 26 H Blood Pressure 120/59 L Pulse Oximetry 96 Oxygen Delivery Mechanical Ventilation Fraction of Inspired Oxygen 70 01/25/24 08:00 01/25/24 08:00 01/25/24 08:00 Temperature 97.5 F L Pulse Rate 69 69 Respiratory Rate 26 H 26 H Blood Pressure 131/59 L Pulse Oximetry 95 95 Oxygen Delivery Mechanical Ventilation Fraction of Inspired Oxygen 70 70 01/25/24 08:00 01/25/24 09:04 01/25/24 08:00 Temperature Pulse Rate 69 75 69 Respiratory Rate 26 H 28 H 26 H Blood Pressure Pulse Oximetry Oxygen Delivery Fraction of Inspired Oxygen 01/25/24 08:00 01/25/24 09:18 01/25/24 10:00 Temperature Pulse Rate 74 73 Respiratory Rate Blood Pressure Pulse Oximetry Oxygen Delivery Mechanical Ventilation Fraction of Inspired Oxygen 65 01/25/24 10:00 01/25/24 10:00 01/25/24 10:00 Temperature 97.9 F Pulse Rate 70 70 70 Respiratory Rate 25 H 27 H 27 H Blood Pressure 124/56 L Pulse Oximetry 95 Oxygen Delivery Fraction of Inspired Oxygen Intake/Output Intake/Output: Intake & Output 01/22/24 01/23/24 01/24/24 01/25/24 23:59 23:59 23:59 23:59 Intake Total 2392.7 2688.9 3180.9 930.3 Output Total 550 1000 1400 875 Balance 1842.7 1688.9 1780.9 55.3 Meds/Results Medications: Active Medications Generic Name Dose Route Start Last Admin Trade Name Freq PRN Reason Stop Dose Admin Acetaminophen 650 mg 01/20/24 10:08 01/20/24 10:29 Acetaminophen 325 Mg Tablet PO 650 mg Q4H PRN Administration Mild Pain (1-3) or Fever Albuterol/Ipratropium 3 ml 01/22/24 14:00 01/25/24 07:53 Ipratropium 0.5 Mg/Albuterol Sulfate 2.5 Mg Ampul.Neb 3 Ml INHALATION 3 ml Q6HRT EDMOND Administration Aspirin 81 mg 01/19/24 08:00 01/25/24 08:05 Aspirin 81 Mg Chewable Tablet PO 81 mg DAILY@0800 EDMOND Administration Atorvastatin Calcium 40 mg 01/19/24 09:00 01/25/24 08:05 Atorvastatin 40 Mg Tablet PO 40 mg DAILY EDMOND Administration Clopidogrel Bisulfate 75 mg 01/19/24 09:00 01/25/24 08:05 Clopidogrel Bisulfate 75 Mg Tablet PO 75 mg DAILY EDMOND Administration Dextrose 12.5 gm 01/18/24 23:28 Dextrose 50% 25 Gm/50 Ml Syringe IV PUSH PRN PRN Hypoglycemia Protocol Glucagon 1 mg 01/18/24 23:28 Glucagon For Inj 1 Mg Vial IM PRN PRN Hypoglycemia Protocol Glucose 15 gm 01/18/24 23:28 Glucose Oral Gel 15 Gm Of Glucse In 37.5 Gm Tube PO PRN PRN Hypoglycemia Protocol Heparin Sodium (Porcine) 4,500 units 01/18/24 23:25 Heparin Sodium 5,000 Units/Ml Vial IV PUSH PRN PRN aPTT less than 55 seconds Heparin Sodium (Porcine) 2,500 units 01/18/24 23:25 01/24/24 06:17 Heparin Sodium 5,000 Units/Ml Vial IV PUSH 2,500 units PRN PRN Administration aPTT 55 - 70 seconds Hydrocortisone Sodium Succinate 50 mg 01/21/24 12:05 01/25/24 05:32 Hydrocortisone Sodium Succinate 100 Mg/2 Ml Vial IV PUSH 01/26/24 12:04 50 mg Q6H EDMOND Administration Ceftriaxone Sodium 1 gm in 50 mls @ 100 mls/hr 01/19/24 17:00 01/24/24 16:55 Rocephin 1 Gm/Ns 50 Ml IVPB Infused Q24H EDMOND Infusion Heparin Sodium/Dextrose 25,000 units in 250 mls @ 9 mls/hr 01/18/24 23:25 01/25/24 10:00 Heparin Sodium/D5w 100 Units/Ml IV CONT 900 units/hr .Q24H EDMOND 9 mls/hr Titration Protocol 900 UNITS/HR Dextrose 1,000 mls @ 100 mls/hr 01/18/24 23:28 Dextrose 5% 1,000 Ml IVPB PRN PRN Hypoglycemia Protocol Fentanyl Citrate 2,500 mcg in 250 mls @ 17.2 mls/hr 01/21/24 07:40 01/25/24 10:00 Fentanyl 2,500 Mcg/Ns 250 Ml IV CONT 175 mcg/hr .[id number] EDMOND 17.5 mls/hr Titration Protocol 172 MCG/HR Midazolam HCl 100 mg in 100 mls @ 8 mls/hr 01/21/24 07:40 01/25/24 10:00 Versed 100 Mg/Ns 100 Ml IV CONT 8 mg/hr .[id number] EDMOND 8 mls/hr Titration Protocol 8 MG/HR Norepinephrine Bitartrate 8 mg in 250 mls @ 9.375 mls/hr 01/22/24 08:05 01/24/24 11:13 Levophed 8 Mg/D5w 250 Ml IV CONT Not Given .Q24H EDMOND Protocol 5 MCG/MIN Metronidazole 500 mg in 100 mls @ 100 mls/hr 01/23/24 08:00 01/25/24 09:32 Flagyl 500 Mg/Iso Soln 100 Ml IVPB Infused Q8H [facility] Infusion Insulin Human Regular 100 100 mls @ 7.5 mls/hr 01/23/24 08:15 01/25/24 10:04 units/ Sodium Chloride IV CONT 7.5 units/hr .[id number] [facility]MOND 7.5 mls/hr Titration Protocol 7.5 UNITS/HR Cisatracurium Besylate 200 mg/ 100 mls @ 0 mls/hr 01/24/24 00:05 01/25/24 08:01 Dextrose IV CONT 0 mcg/kg/min .Q0M EDMOND 0 mls/hr Titration Protocol Insulin Aspart 4 - 8 units 01/19/24 12:00 01/23/24 04:27 Insulin Aspart (*Bkc) 100 Units/Ml SUB-Q 8 units Q4H [facility]MON[facility] Administration Protocol Insulin Glargine 65 units 01/25/24 09:00 01/25/24 08:28 Insulin Glargine (*Bkc) 100 Units/Ml SUB-Q 65 units Q12HR [facility] Administration Levothyroxine Sodium 112 mcg 01/19/24 06:30 01/25/24 05:31 Levothyroxine Sodium 112 Mcg Tablet PO 112 mcg DAILY@0630 EDMOND Administration Metoclopramide HCl 10 mg 01/25/24 12:00 Metoclopramide Hcl 10 Mg/10 Ml Soln Udc FEED TUBE Q6HR [facility] Midazolam HCl 2 mg 01/21/24 07:40 01/23/24 09:38 Midazolam Hcl (*Crx) 2 Mg/2 Ml Vial IV PUSH 2 mg Q5M PRN Administration ventilator asynchrony Midazolam HCl 4 mg 01/21/24 09:35 01/23/24 23:35 Midazolam Hcl (*Crx) 2 Mg/2 Ml Vial IV PUSH 4 mg PRN PRN Administration Sedation Multi-Ingred Cream/Lotion/Oil/Oint 1 applic 01/21/24 09:00 01/25/24 08:30 Mineral Oil/White Petrolatum Ointment EACH EYE 1 applic Q12HR [facility] Administration Ondansetron HCl 4 mg 01/18/24 22:13 Ondansetron Inj 4 Mg/2 Ml Vial IV PUSH Q4H PRN Nausea Pantoprazole Sodium 40 mg 01/19/24 09:00 01/25/24 08:05 Pantoprazole Sodium Iv 40 Mg Vial IV PUSH 40 mg Q12HR [facility] Administration Polyethylene Glycol 17 gm 01/24/24 09:00 01/25/24 08:06 Polyethylene Glycol 3350 17 Gm Powd.Pack PO 17 gm QAM [facility] Administration Radiology Results: ITS Impressions Chest/Abdomen/Pelvis CTA 01/18/24 18:30 IMPRESSION: Nonocclusive acute subsegmental pulmonary embolus in the left lower lobe. Very small clot burden. No evidence of right heart strain. Left lower lobe pneumonia. Mild hepatomegaly. Possible cystitis. Otherwise, no acute abdominopelvic process detected. Head CT 01/19/24 05:47 Impression: No intracranial hemorrhage, mass, or acute infarct. Atrophy and chronic white matter changes, as above. Venous Doppler Study 01/19/24 15:06 IMPRESSION: Negative bilateral lower extremity venous US. No deep vein thrombosis. Chest/Abdomen/Pelvis CT 01/22/24 12:43 IMPRESSION: Worsening respiratory status with bibasilar consolidation and interstitial thickening with patchy groundglass opacification bilaterally -findings suggesting ARDS. Mural thickening within the rectosigmoid colon with multiple diverticula and prominence of the vasa recta, possibly early diverticulitis. Interval development of perihepatic fluid, compared with previous study. Renal Ultrasound 01/24/24 12:05 IMPRESSION: 1. Normal kidneys without hydronephrosis. Chest X-Ray 01/25/24 06:35 IMPRESSION: 1. Diffuse bilateral lung disease with lower lung predominance and some improvement on the left. Differential includes pneumonia and/or ARDS. 2. Likely decreasing small left pleural effusion. Labs Labs: Laboratory Results - last 24 hr 01/19/24 01/24/24 01/24/24 02:00 10:17 11:07 WBC RBC Hgb Hct MCV MCH MCHC RDW Plt Count MPV APTT Puncture Site ABG pH ABG pCO2 ABG pO2 ABG PO2/FiO2 Ratio ABG HCO3 ABG O2 Saturation ABG O2 Content ABG Base Excess A-a Gradient Oxyhemoglobin Carboxyhemoglobin Methemoglobin Reduced Hemoglobin Total Hemoglobin O2 Delivery Device O2 Liters/Min Minute Volume Vent Rate Vent Mode FiO2 Tidal Volume PEEP Peak Inspir Pressure Pressure Support Sodium Potassium Chloride Carbon Dioxide Anion Gap BUN Creatinine Estim Creat Clear Calc Estimated GFR Glucose POC Capillary Glucose 246 H Calcium Magnesium Total Bilirubin AST ALT Alkaline Phosphatase Total Protein Albumin Urine Eosinophils None seen U Random Total Protein 37 Urine Creatinine 47.8 Protein/Creat Ratio 2 0.77 H Ur L.pneumophila Ag Not detected 01/24/24 01/24/24 01/24/24 12:02 12:05 13:04 WBC 17.6 H RBC 2.23 L Hgb 7.0 L Hct 21.8 L MCV 97.8 MCH 31.4 MCHC 32.1 RDW 15.3 H Plt Count 204 MPV 11.6 H APTT 96.4 H Puncture Site ABG pH ABG pCO2 ABG pO2 ABG PO2/FiO2 Ratio ABG HCO3 ABG O2 Saturation ABG O2 Content ABG Base Excess A-a Gradient Oxyhemoglobin Carboxyhemoglobin Methemoglobin Reduced Hemoglobin Total Hemoglobin O2 Delivery Device O2 Liters/Min Minute Volume Vent Rate Vent Mode FiO2 Tidal Volume PEEP Peak Inspir Pressure Pressure Support Sodium Potassium Chloride Carbon Dioxide Anion Gap BUN Creatinine Estim Creat Clear Calc Estimated GFR Glucose POC Capillary Glucose 234 H 214 H Calcium Magnesium Total Bilirubin AST ALT Alkaline Phosphatase Total Protein Albumin Urine Eosinophils U Random Total Protein Urine Creatinine Protein/Creat Ratio 2 Ur L.pneumophila Ag 01/24/24 01/24/24 01/24/24 14:01 15:01 16:09 WBC RBC Hgb Hct MCV MCH MCHC RDW Plt Count MPV APTT Puncture Site ABG pH ABG pCO2 ABG pO2 ABG PO2/FiO2 Ratio ABG HCO3 ABG O2 Saturation ABG O2 Content ABG Base Excess A-a Gradient Oxyhemoglobin Carboxyhemoglobin Methemoglobin Reduced Hemoglobin Total Hemoglobin O2 Delivery Device O2 Liters/Min Minute Volume Vent Rate Vent Mode FiO2 Tidal Volume PEEP Peak Inspir Pressure Pressure Support Sodium Potassium Chloride Carbon Dioxide Anion Gap BUN Creatinine Estim Creat Clear Calc Estimated GFR Glucose POC Capillary Glucose 213 H 186 H 184 H Calcium Magnesium Total Bilirubin AST ALT Alkaline Phosphatase Total Protein Albumin Urine Eosinophils U Random Total Protein Urine Creatinine Protein/Creat Ratio 2 Ur L.pneumophila Ag 01/24/24 01/24/24 01/24/24 17:06 18:01 18:09 WBC 18.5 H RBC 2.24 L Hgb 7.0 L Hct 21.8 L MCV 97.3 MCH 31.3 MCHC 32.1 RDW 15.3 H Plt Count 214 MPV 11.3 H APTT 91.5 H Puncture Site ABG pH ABG pCO2 ABG pO2 ABG PO2/FiO2 Ratio ABG HCO3 ABG O2 Saturation ABG O2 Content ABG Base Excess A-a Gradient Oxyhemoglobin Carboxyhemoglobin Methemoglobin Reduced Hemoglobin Total Hemoglobin O2 Delivery Device O2 Liters/Min Minute Volume Vent Rate Vent Mode FiO2 Tidal Volume PEEP Peak Inspir Pressure Pressure Support Sodium Potassium Chloride Carbon Dioxide Anion Gap BUN Creatinine Estim Creat Clear Calc Estimated GFR Glucose POC Capillary Glucose 212 H 230 H Calcium Magnesium Total Bilirubin AST ALT Alkaline Phosphatase Total Protein Albumin Urine Eosinophils U Random Total Protein Urine Creatinine Protein/Creat Ratio 2 Ur L.pneumophila Ag 01/24/24 01/24/24 01/24/24 19:00 19:59 21:03 WBC RBC Hgb Hct MCV MCH MCHC RDW Plt Count MPV APTT Puncture Site ABG pH ABG pCO2 ABG pO2 ABG PO2/FiO2 Ratio ABG HCO3 ABG O2 Saturation ABG O2 Content ABG Base Excess A-a Gradient Oxyhemoglobin Carboxyhemoglobin Methemoglobin Reduced Hemoglobin Total Hemoglobin O2 Delivery Device O2 Liters/Min Minute Volume Vent Rate Vent Mode FiO2 Tidal Volume PEEP Peak Inspir Pressure Pressure Support Sodium Potassium Chloride Carbon Dioxide Anion Gap BUN Creatinine Estim Creat Clear Calc Estimated GFR Glucose POC Capillary Glucose 226 H 249 H 246 H Calcium Magnesium Total Bilirubin AST ALT Alkaline Phosphatase Total Protein Albumin Urine Eosinophils U Random Total Protein Urine Creatinine Protein/Creat Ratio 2 Ur L.pneumophila Ag 01/24/24 01/24/24 01/25/24 22:03 23:08 00:10 WBC RBC Hgb Hct MCV MCH MCHC RDW Plt Count MPV APTT Puncture Site ABG pH ABG pCO2 ABG pO2 ABG PO2/FiO2 Ratio ABG HCO3 ABG O2 Saturation ABG O2 Content ABG Base Excess A-a Gradient Oxyhemoglobin Carboxyhemoglobin Methemoglobin Reduced Hemoglobin Total Hemoglobin O2 Delivery Device O2 Liters/Min Minute Volume Vent Rate Vent Mode FiO2 Tidal Volume PEEP Peak Inspir Pressure Pressure Support Sodium Potassium Chloride Carbon Dioxide Anion Gap BUN Creatinine Estim Creat Clear Calc Estimated GFR Glucose POC Capillary Glucose 258 H 244 H 222 H Calcium Magnesium Total Bilirubin AST ALT Alkaline Phosphatase Total Protein Albumin Urine Eosinophils U Random Total Protein Urine Creatinine Protein/Creat Ratio 2 Ur L.pneumophila Ag 01/25/24 01/25/24 01/25/24 01:03 02:03 03:06 WBC RBC Hgb Hct MCV MCH MCHC RDW Plt Count MPV APTT Puncture Site ABG pH ABG pCO2 ABG pO2 ABG PO2/FiO2 Ratio ABG HCO3 ABG O2 Saturation ABG O2 Content ABG Base Excess A-a Gradient Oxyhemoglobin Carboxyhemoglobin Methemoglobin Reduced Hemoglobin Total Hemoglobin O2 Delivery Device O2 Liters/Min Minute Volume Vent Rate Vent Mode FiO2 Tidal Volume PEEP Peak Inspir Pressure Pressure Support Sodium Potassium Chloride Carbon Dioxide Anion Gap BUN Creatinine Estim Creat Clear Calc Estimated GFR Glucose POC Capillary Glucose 212 H 186 H 192 H Calcium Magnesium Total Bilirubin AST ALT Alkaline Phosphatase Total Protein Albumin Urine Eosinophils U Random Total Protein Urine Creatinine Protein/Creat Ratio 2 Ur L.pneumophila Ag 01/25/24 01/25/24 01/25/24 03:57 05:11 05:13 WBC RBC Hgb Hct MCV MCH MCHC RDW Plt Count MPV APTT Puncture Site Right radial ABG pH 7.344 L ABG pCO2 45.5 H ABG pO2 79.9 L ABG PO2/FiO2 Ratio 1.14 ABG HCO3 24.2 ABG O2 Saturation 95.2 ABG O2 Content 11.0 L ABG Base Excess -1.5 A-a Gradient 370.3 Oxyhemoglobin 94.0 Carboxyhemoglobin 0.6 Methemoglobin 0.1 Reduced Hemoglobin 5.3 H Total Hemoglobin 8.2 L O2 Delivery Device Ventilator O2 Liters/Min Not Reportable Minute Volume Not Reportable Vent Rate 26 Vent Mode Cmv FiO2 70 Tidal Volume 360 PEEP 12 Peak Inspir Pressure Not Reportable Pressure Support Not Reportable Sodium Potassium Chloride Carbon Dioxide Anion Gap BUN Creatinine Estim Creat Clear Calc Estimated GFR Glucose POC Capillary Glucose 215 H 228 H Calcium Magnesium Total Bilirubin AST ALT Alkaline Phosphatase Total Protein Albumin Urine Eosinophils U Random Total Protein Urine Creatinine Protein/Creat Ratio 2 Ur L.pneumophila Ag 01/25/24 01/25/24 01/25/24 05:28 06:09 07:01 WBC 19.4 H RBC 2.37 L Hgb 7.4 L Hct 22.9 L MCV 96.6 MCH 31.2 MCHC 32.3 RDW 15.3 H Plt Count 229 MPV 11.8 H APTT 106.8 H Puncture Site ABG pH ABG pCO2 ABG pO2 ABG PO2/FiO2 Ratio ABG HCO3 ABG O2 Saturation ABG O2 Content ABG Base Excess A-a Gradient Oxyhemoglobin Carboxyhemoglobin Methemoglobin Reduced Hemoglobin Total Hemoglobin O2 Delivery Device O2 Liters/Min Minute Volume Vent Rate Vent Mode FiO2 Tidal Volume PEEP Peak Inspir Pressure Pressure Support Sodium 147 H Potassium 4.0 Chloride 106 Carbon Dioxide 26 Anion Gap 15 H BUN 115 H D Creatinine 3.00 H Estim Creat Clear Calc 14 Estimated GFR 15 L Glucose 242 H POC Capillary Glucose 262 H 279 H Calcium 7.7 L Magnesium 2.3 Total Bilirubin 0.6 AST 33 ALT 17 Alkaline Phosphatase 66 Total Protein 7.0 Albumin 4.1 Urine Eosinophils U Random Total Protein Urine Creatinine Protein/Creat Ratio 2 Ur L.pneumophila Ag 01/25/24 01/25/24 01/25/24 07:57 09:04 10:03 WBC RBC Hgb Hct MCV MCH MCHC RDW Plt Count MPV APTT Puncture Site ABG pH ABG pCO2 ABG pO2 ABG PO2/FiO2 Ratio ABG HCO3 ABG O2 Saturation ABG O2 Content ABG Base Excess A-a Gradient Oxyhemoglobin Carboxyhemoglobin Methemoglobin Reduced Hemoglobin Total Hemoglobin O2 Delivery Device O2 Liters/Min Minute Volume Vent Rate Vent Mode FiO2 Tidal Volume PEEP Peak Inspir Pressure Pressure Support Sodium Potassium Chloride Carbon Dioxide Anion Gap BUN Creatinine Estim Creat Clear Calc Estimated GFR Glucose POC Capillary Glucose 301 H 303 H 277 H Calcium Magnesium Total Bilirubin AST ALT Alkaline Phosphatase Total Protein Albumin Urine Eosinophils U Random Total Protein Urine Creatinine Protein/Creat Ratio 2 Ur L.pneumophila Ag
[2024-01-25 11:09] LABS: Glucose Point of Care 246 mg/dl (65-105)
[2024-01-25] MEDS: METOCLOPRAMIDE HCL 10 MG/10 ML SOLN UDC FEED TUBE ×3 (12:01→23:44)
[2024-01-25] MEDS: HEPARIN SOD/D5W 100 UNITS/ML 25,000 UNITS/250 ML BAG 9 UNITS IV CONT (12:12)
[2024-01-25 12:17] LABS: Glucose Point of Care 215 mg/dl (65-105)
[2024-01-25 12:41] LABS: Partial Thromboplastin Time 76.3 Seconds (22.3-36.8)
[2024-01-25 13:06] LABS: Glucose Point of Care 209 mg/dl (65-105)
[2024-01-25 14:01] LABS: Glucose Point of Care 182 mg/dl (65-105)
[2024-01-25 14:56] LABS: Glucose Point of Care 183 mg/dl (65-105)
[2024-01-25 15:58] LABS: Glucose Point of Care 189 mg/dl (65-105)
[2024-01-25 17:07] LABS: Glucose Point of Care 188 mg/dl (65-105)
--- NOTE | 2024-01-25 17:45 | PC.NURSE ---
Patient family stated they would like majority of the patient's children to be present tomorrow for rounds @ 10 am with the service advisor to ensure that everyone is on the same page as far as condition, prognosis, and treatment plan. Will pass this information on to oncoming staff.
[2024-01-25 18:06] LABS: Glucose Point of Care 193 mg/dl (65-105)
[2024-01-25 18:58] LABS: Glucose Point of Care 161 mg/dl (65-105)
[2024-01-25 19:26] LABS: Partial Thromboplastin Time 74.8 Seconds (22.3-36.8)
[2024-01-25 19:57] LABS: Glucose Point of Care 196 mg/dl (65-105)
[2024-01-25 23:50] LABS: Glucose Point of Care 237 mg/dl (65-105)
[2024-01-25] MEDS: INSULIN ASPART (*BKC) 100 UNITS/ML SUB-Q (23:51)
[2024-01-26] VITALS (52 sets, daily range): BP systolic 82–163; BP diastolic 40–90; PULSE 62–98; RESP 11–32; TEMP 35.8–37.7; O2SAT 92–100
[2024-01-26] MEDS: MIDAZOLAM 100MG/NS 100ML(*CRX) 100 MG/100 ML BAG 6 MG IV CONT (01:42)
[2024-01-26] MEDS: IPRATROPIUM 0.5 MG/ALBUTEROL SULFATE 2.5 MG AMPUL.NEB 3 ML INHALATION ×4 (02:03→20:20)
[2024-01-26] MEDS: INSULIN ASPART (*BKC) 100 UNITS/ML SUB-Q ×2 (04:14→08:32)
[2024-01-26 04:21] LABS: Glucose Point of Care 256 mg/dl (65-105)
[2024-01-26] MEDS: HYDROCORTISONE SODIUM SUCCINATE 100 MG/2 ML VIAL 50 MG IV PUSH (05:45)
[2024-01-26] MEDS: LEVOTHYROXINE SODIUM 112 MCG TABLET PO (05:46)
[2024-01-26] MEDS: METOCLOPRAMIDE HCL 10 MG/10 ML SOLN UDC FEED TUBE ×4 (05:46→23:36)
[2024-01-26 05:49] LABS: Hematocrit 24.6 % (37.0-47.0); Hemoglobin 7.9 g/dL (12.0-15.0); Mean Corpuscular HGB Conc 32.1 g/dl (32-36); Mean Corpuscular Hemoglobin 31.5 pg (26-34); Mean Platelet Volume 11.8 fl (7.4-10.4); Platelet Count Result 275 k/mm3 (150-375); Red Blood Count 2.51 M/mm3 (4.2-5.4); Red Cell Distribution Width 15.4 % (11.5-14.5); White Blood Count 22.5 K/mm3 (4.5-10.0)
[2024-01-26 05:57] LABS: Alveolar/Arterial O2 Gradient 296.4 mmHg; Base Excess ABG -3.6 mEq/l (+/-2.0); Carboxyhemoglobin 0.6 % THb (0-2.0); Device VENTILATOR; Fractional Inspired Oxygen 60 %; HCO3 ABG 21.9 mEq/l (22.0-26.0); Methemoglobin ABG 0.1 %THb (0-1.5); Modified Allen's Test Unable to perform; Oxygen Content ABG 11.8 %vol (16.0-22.0); Oxygen Saturation ABG 95.9 % (95.0-100.0); PCO2 ABG 41.8 mmHg (35.0-45.0); PO2 ABG 85.4 mmHg (80.0-100.0); PO2 FiO2 Ratio Arterial Blood 1.42 %; Reduced Hemoglobin 4.3 %THb (0-5.0); Site Drawn RIGHT RADIAL; Total Hemoglobin 8.7 g/dL (12.0-18.0); pH ABG 7.338 (7.350-7.450)
[2024-01-26 05:58] LABS: Arterial Blood Gas PEEP 14 cmH2O; Arterial Blood Gas Tidal Volume 360 ml; Arterial Blood Gas Vent Mode CMV; Arterial Blood Gas Ventilator rate 26 /MIN
[2024-01-26] MEDS: MIDAZOLAM HCL (*CRX) 2 MG/2 ML VIAL 4 MG IV PUSH (05:58)
[2024-01-26 06:05] LABS: Alanine Aminotransferase 19 U/L (6-35); Albumin Level 4.1 g/dL (3.5-5.1); Alkaline Phosphatase 67 U/L (38-126); Anion Gap 16 mmol/L (4-12); Aspartate Amino Transferase 34 U/L (14-36); Bilirubin,Total 0.7 mg/dL (0.2-1.3); Calcium 7.8 mg/dL (8.4-10.2); Carbon Dioxide 24 mmol/L (22-30); Chloride 107 mmol/L (98-107); Estimated CRCL calculation 15 ml/min; Estimated Glomerular Filt Rate 15; Glucose 251 mg/dL (65-110); Magnesium 2.5 mg/dL (1.6-2.3); Sodium 147 mmol/L (137-145)
[2024-01-26 06:10] LABS: Partial Thromboplastin Time 31.2 Seconds (22.3-36.8)
[2024-01-26 06:15] LABS: Blood Urea Nitrogen 128 mg/dL (7-17)
[2024-01-26 07:53] LABS: Glucose Point of Care 227 mg/dl (65-105)
[2024-01-26 08:29] LABS: Hepatitis B Surface Antigen Negative (Negative)
[2024-01-26] MEDS: MINERAL OIL/WHITE PETROLATUM OINTMENT 1 APPLIC EACH EYE ×2 (08:30→20:39)
[2024-01-26] MEDS: PANTOPRAZOLE SODIUM IV 40 MG VIAL IV PUSH ×2 (08:30→20:54)
[2024-01-26] MEDS: metroNIDAZOLE 500 MG/ISO 100ML 500 MG/100 ML BAG 100 MG IVPB ×3 (08:31→23:36)
[2024-01-26] MEDS: INSULIN GLARGINE (*BKC) 100 UNITS/ML 65 UNITS SUB-Q (08:32)
[2024-01-26 08:47] LABS: Hepatitis B Surface Anti Res Negative
--- NOTE | 2024-01-26 09:31 | WPDPROCEDUR ---
Procedures Central Line Placement Right IJ: Central Line Date: 01/26/24 Central Line Time: 09:00 Discussed w/ the patient/family/POA,the placement of a central venous catheter, including its clinical necessity/indication & associated potential risks, benifits and alternatives.: Yes The patient/family/POA understand(s) and acknowledge(s) the need to proceed with central venous catheter insertion as an important element of the patient's clinical management.: Yes Consent: I have discussed with the patient and/or surrogate, the non-emergent placement of a temporary dialysis venous catheter, including its clinical necessity/indication and associated potential risks and complications. The patient and/or surrogate understand(s) and acknowledge(s) the need to proceed with temporary dialysis venous catheter insertion as an important element of the patient's clinical management. Time Out Performed: Yes Patient Position: supine Patient placed on monitor/pulse ox: Yes Provider Prep: mask, sterile gown, sterile gloves, Max. sterile barrier precautions, cap and hand hygiene with conventional soap/water or alcohol based hand rub Central line prep: Povidone-Iodine 1% Sterile US Technique with sterile gel/sterile probe covers: Yes Central line lumen inserted: triple Length (cm): 16 Depth of Insertion (cm): 16 Post Procedure: sutured in place, good blood return, all ports aspirated, flushed, capped, transparent dressing and aseptic technique maintained throughout procedure Post procedure x-ray: tip of catheter in good position and no pneumothorax seen Patient tolerated procedure: well Complications: none
--- NOTE | 2024-01-26 09:32 | P.PNINT_ITS ---
Progress Note: A&P Assessment and Plan (1) Acute respiratory failure: Code(s): J96.00 - Acute respiratory failure, unspecified whether with hypoxia or hypercapnia Status: Acute Assessment and Plan: Acute Respiratory failure secondary to pneumonia and PE. Patient appears to have developed ARDS Patient had became CPAP dependent 100% FiO2. Forty of Lasix given IV last night without any significant improvement. Patient does not have any edema on lower extremity suggestive of heart failure. Echo reviewed. 01/20 patient intubated for discussion with the patient and her daughter. ABG reviewed and low tidal volume ventilation. PEEP set at 12 tidal volume at 300 mL. FiO2 is 100%. Increase respiratory rate to 26 Post intubation patient was coughing and gagging leading to desaturation hence was given rocuronium. Patient was started on Nimbex infusion along with sedation at this time. Patient was placed in prone position 01/21 patient was switched to supine position around 2:00 a.m.. She is a 70% FiO2 and 12 of PEEP 01/22 on 55% FiO2 and 12 of PEEP. ABG reviewed. Decrease respiratory rate to 24. Continue to wean FiO2. CT scan done yesterday showed IMPRESSION: Worsening respiratory status with bibasilar consolidation and interstitial thickening with patchy groundglass opacification bilaterally -findings suggesting ARDS. 01/23 overnight patient had increased oxygen requirement. Yesterday morning neuromuscular yasemin infusion was discontinued but patient later was a synchronous with the ventilator with coughing and gagging. Sedation was increased but did not fix the problem patient desaturated. Nimbex infusion was restarted. This morning she is on 70% FiO2 and Wean FiO2 to 65% this morning 01/24 continues to be on mechanical ventilation and is on 70% FiO2 and 12 of PEEP. I will increase the PEEP to 14. 01/25 Chest x-ray reviewed and does not show any significant change and shows stable diffuse lung disease ABG reviewed continue current ventilator settings she is currently at 60% FiO2 and 14 of PEEP Continue Low tidal volume ventilation and permissive hypercapnia and permissive respiratory acidosis Plan to start dialysis today Continue Bronchodilators Treatment of pneumonia and PE as below Patient started on course of steroids due to severity of pneumonia and ARDS which will be continued through today Patient has been off of Nimbex infusion for last 24 hours and will continue as tolerated (2) Septic shock: Code(s): A41.9 - Sepsis, unspecified organism; R65.21 - Severe sepsis with septic shock Status: Acute Assessment and Plan: Secondary to pneumonia 01/17: Patient presented with hypotension, elevated lactic acid levels, fevers, cough, hypoxia -received 30 mL/kg IV fluids -started on Levophed via femoral central line - Off IV fluids vasopressors now -continue azithromycin and ceftriaxone (01/17) -01/17: Blood cultures have been obtained and negative till now MRSA screen negative Urine pneumococcal antigen negative Urine Legionella antigen pending Influenza RSV and COVID PCR negative (3) Community acquired pneumonia: Qualifiers: Laterality: left Lung location: lower lobe of lung Qualified Code(s): J18.9 - Pneumonia, unspecified organism Code(s): J18.9 - Pneumonia, unspecified organism Status: Acute Assessment and Plan: See above (4) Diabetes: Code(s): E11.9 - Type 2 diabetes mellitus without complications Status: Acute Assessment and Plan: Uncontrolled Continue Lantus Insulin infusion has been transition to subcutaneous insulin now (5) Acute kidney injury: Code(s): N17.9 - Acute kidney failure, unspecified Status: Acute Assessment and Plan: Patient initially presented with Acute kidney injury likely related to hypotension, septic shock She was adequately fluid-resuscitated and came off of IV fluids Creatinine normalized initially Patient did receive contrast for CTA Creatinine increased post intubation. 01/22 Lasix IV x1 Patient was given 25% albumin and will give 5% albumin. Will avoid liberal fluids due to patient's respiratory status. Patient is positive her I/O balance Creatinine continues to increase and 3 with further elevated BUN today. Urine output also decreasing. I had discussed with nephrology and family will plan to initiate dialysis today. Temporary dialysis catheter placed after obtaining consent from patient's family. Discussed with nephrology. [employer] Analyst will arrange for dialysis Continue to monitor urine output, electrolytes and creatinine (6) Pulmonary embolism: Code(s): I26.99 - Other pulmonary embolism without acute cor pulmonale Status: Acute Assessment and Plan: Continue heparin infusion small PE Venous Dopplers negative 01/17: CT chest abdomen and pelvis IMPRESSION: Nonocclusive acute subsegmental pulmonary embolus in the left lower lobe. Very small clot burden. No evidence of right heart strain. Left lower lobe pneumonia. Mild hepatomegaly. Possible cystitis. Otherwise, no acute abdominopelvic process detected. Echo Summary 1. Left ventricular systolic function is normal, estimated at 55-60%. 2. There is mildly increased left ventricular wall thickness. 3. The left ventricular diastolic function is grade I diastolic dysfunction. 4. There is trace mitral valve regurgitation. 5. There is trace tricuspid valve regurgitation. 6. No pulmonary hypertension, estimated pulmonary arterial systolic pressure is 41 mmHg. 7. Right ventricular systolic function is normal. 8. Right ventricular chamber dimension is normal. (7) Electrolyte abnormality: Code(s): E87.8 - Other disorders of electrolyte and fluid balance, not elsewhere classified Status: Acute Assessment and Plan: Will increase free water flush (8) Diverticulitis: Code(s): K57.92 - Diverticulitis of intestine, part unspecified, without perforation or abscess without bleeding Status: Acute Assessment and Plan: CT abdomen pelvis showed Mural thickening within the rectosigmoid colon with multiple diverticula and prominence of the vasa recta, possibly early diverticulitis. Interval development of perihepatic fluid, compared with previous study. Currently on Rocephin and Flagyl. (9) Ileus: Code(s): K56.7 - Ileus, unspecified Status: Acute Assessment and Plan: Last night patient had high residuals and tube feeds had to be held. I have started patient on Reglan per tube. Tube feeds have been resumed at 20 mL/hour. On today's exam I do not hear any significant bowel sounds. This may signify some ileus. She did had small bowel movements overnight. Continue laxative. KUB reviewed Will try to advance tube feeds as tolerated. (10) Anemia: Code(s): D64.9 - Anemia, unspecified Status: Acute Assessment and Plan: Patient's hemoglobin has gradually trended down over last 4-5 days. She is on heparin infusion for PE. There has been no evidence of bleeding. Continue monitor this time. Transfuse if hemoglobin less than 7. Platelets are at acceptable level. She is also on aspirin Plavix for coronary disease She is on Protonix twice a day Plan DVT prophylaxis: Heparin infusion will be restarted Stress ulcer prophylaxis: Protonix IV q.12 hours Nutrition:. Continue tube feeds and advance to goal. Code Status: 01/20 I spoke to patient prior to intubation about cold and goals of care. She stated that she would like 1-2 rounds of resuscitation in case of cardiac arrest to see if she can be brought back but does not want prolonged resuscitation efforts. She also states that if she is unable to come off the ventilator in 2 weeks time she would not want a feeding tube and tracheostomy for long-term mechanical ventilation. Patient's daughter was at bedside and in agreement with patient's wishes 01/22 patient's son updated him patient's current status including changes in the respiratory status, worsening renal function. I answered all questions. 01/25 spoke to and updated patient's daughter at bedside. I answered all her questions Critical Care Time Spent: 35 minutes Due to a high probability of clinically significant, life threatening deterioration, the patient required my highest level of preparedness to intervene emergently and I personally spent this critical care time directly and personally managing the patient. This critical care time included obtaining a history; examining the patient; pulse oximetry; ordering and review of studies; arranging urgent treatment with development of a management plan; evaluation of patient's response to treatment; frequent reassessment; and discussions with other providers. It was exclusive of separately billable procedures and treating other patients and teaching time. Please see Assessment and Plan section and the rest of the note for further information on patient assessment and treatment This dictation may have been done utilizing a voice recognition system. Attempts have been made to correct errors. However, there may be uncorrected grammatical, spelling, and recognitions errors present. Subjective Date/time seen: 01/26/24 Overnight events reviewed. Afebrile Continues to be on mechanical ventilation 14 of PEEP and 60% FiO2 Tolerating tube feed at rate of 20 mL/hour Continues to be sedated with Versed fentanyl. Off of Nimbex infusion Heparin infusion was stopped this morning for planned procedures. Other Vitals acceptable Interval history: 68yo female with HTN, CHF, DM and HLD with PE pneumonia acute respiratory failure ARDS acute kidney injury Review of Systems Review of Systems: ROS unobtainable: Yes unobtainable due to endotracheal tube, unobtainable due to medical condition and unobtainable due to mental status Exam Narrative: General: intubated sedated,a intubated and on mechanical ventilation HEENT:? Pupils equal and reactive, sclerae sclera, ET tube in place Neck:? Supple Respiratory:? Coarse breath sounds bilaterally no wheezing, Cardiac:? S1-S2 was normal, regular rate and rhythm Abdomen:? Soft, distended, no tenderness, absent bowel sounds, mild distention Extremities:? No edema, palpable pedal pulses Neuro:? Patient is intubated sedated intermittent coughing bouts but she is unresponsive to painful stimuli, PERRL Skin:? Warm and dry Objective Data Vital Signs Vital Signs: Vital Signs - 24 hr 01/25/24 10:00 01/25/24 10:00 01/25/24 10:00 Temperature 36.6 C Pulse Rate 73 70 70 Respiratory Rate 25 H 27 H Blood Pressure 124/56 L Pulse Oximetry 95 Oxygen Delivery Fraction of Inspired Oxygen 01/25/24 10:00 01/25/24 11:04 01/25/24 11:25 Temperature 36.8 C Pulse Rate 70 72 70 Respiratory Rate 27 H Blood Pressure 123/57 L Pulse Oximetry 95 94 Oxygen Delivery Mechanical Ventilation Fraction of Inspired Oxygen 60 01/25/24 12:00 01/25/24 12:00 01/25/24 12:00 Temperature Pulse Rate 70 71 71 Respiratory Rate 26 H 26 H 26 H Blood Pressure Pulse Oximetry 94 Oxygen Delivery Mechanical Ventilation Fraction of Inspired Oxygen 60 01/25/24 12:00 01/25/24 12:00 01/25/24 12:00 Temperature 36.9 C Pulse Rate 71 72 Respiratory Rate 26 H Blood Pressure 113/49 L Pulse Oximetry 94 Oxygen Delivery Fraction of Inspired Oxygen 60 01/25/24 13:23 01/25/24 13:23 01/25/24 10:00 Temperature Pulse Rate 70 70 71 Respiratory Rate 23 H 23 H 24 H Blood Pressure 124/56 L Pulse Oximetry Oxygen Delivery Fraction of Inspired Oxygen 01/25/24 12:00 01/25/24 14:00 01/25/24 14:00 Temperature Pulse Rate 69 73 72 Respiratory Rate 17 26 H 25 H Blood Pressure 117/49 L Pulse Oximetry Oxygen Delivery Fraction of Inspired Oxygen 01/25/24 14:00 01/25/24 14:00 01/25/24 14:31 Temperature Pulse Rate 73 73 72 Respiratory Rate 25 H 26 H Blood Pressure 123/57 L Pulse Oximetry 95 Oxygen Delivery Fraction of Inspired Oxygen 01/25/24 14:35 01/25/24 14:42 01/25/24 15:31 Temperature Pulse Rate 72 73 72 Respiratory Rate 26 H 26 H Blood Pressure 119/55 L Pulse Oximetry 94 96 Oxygen Delivery Mechanical Ventilation Fraction of Inspired Oxygen 60 01/25/24 16:00 01/25/24 16:00 01/25/24 16:00 Temperature Pulse Rate 70 72 Respiratory Rate 26 H Blood Pressure Pulse Oximetry 97 Oxygen Delivery Mechanical Ventilation Fraction of Inspired Oxygen 60 60 01/25/24 16:00 01/25/24 16:00 01/25/24 16:00 Temperature 37.3 C Pulse Rate 71 70 70 Respiratory Rate 26 H 26 H 26 H Blood Pressure 119/58 L Pulse Oximetry 97 Oxygen Delivery Fraction of Inspired Oxygen 01/25/24 14:00 01/25/24 16:00 01/25/24 16:59 Temperature Pulse Rate 73 97 69 Respiratory Rate 25 H 26 H Blood Pressure 123/57 L 119/58 L Pulse Oximetry 96 Oxygen Delivery Mechanical Ventilation Fraction of Inspired Oxygen 60 01/25/24 18:00 01/25/24 18:00 01/25/24 18:00 Temperature Pulse Rate 72 72 72 Respiratory Rate 26 H 26 H 26 H Blood Pressure 124/56 L Pulse Oximetry Oxygen Delivery Fraction of Inspired Oxygen 01/25/24 18:00 01/25/24 18:00 01/25/24 20:00 Temperature 37.1 C Pulse Rate 71 72 66 Respiratory Rate 26 H 26 H Blood Pressure 124/56 L Pulse Oximetry 97 Oxygen Delivery Fraction of Inspired Oxygen 01/25/24 20:14 01/25/24 20:10 01/25/24 20:17 Temperature Pulse Rate 67 66 68 Respiratory Rate 26 H 26 H 26 H Blood Pressure Pulse Oximetry Oxygen Delivery Fraction of Inspired Oxygen 01/25/24 20:05 01/25/24 20:17 01/25/24 20:00 Temperature 36.9 C Pulse Rate 65 67 67 Respiratory Rate 26 H 26 H Blood Pressure 116/55 L Pulse Oximetry 95 96 Oxygen Delivery Mechanical Ventilation Fraction of Inspired Oxygen 60 01/25/24 20:00 01/25/24 20:00 01/25/24 20:00 Temperature Pulse Rate 67 67 Respiratory Rate 26 H Blood Pressure Pulse Oximetry 94 Oxygen Delivery Mechanical Ventilation Fraction of Inspired Oxygen 60 60 01/25/24 22:00 01/25/24 22:00 01/25/24 22:00 Temperature Pulse Rate 65 66 66 Respiratory Rate 26 H 26 H Blood Pressure Pulse Oximetry Oxygen Delivery Fraction of Inspired Oxygen 01/25/24 22:13 01/25/24 23:02 01/26/24 00:00 Temperature 36.8 C Pulse Rate 77 67 69 Respiratory Rate 26 H 26 H Blood Pressure 123/58 L Pulse Oximetry 96 96 Oxygen Delivery Mechanical Ventilation Fraction of Inspired Oxygen 60 01/26/24 00:00 01/26/24 00:00 01/26/24 01:42 Temperature Pulse Rate 68 71 71 Respiratory Rate 26 H 26 H 26 H Blood Pressure Pulse Oximetry 96 Oxygen Delivery Mechanical Ventilation Fraction of Inspired Oxygen 60 01/26/24 01:42 01/26/24 02:03 01/26/24 02:05 Temperature Pulse Rate 71 71 70 Respiratory Rate 26 H 26 H Blood Pressure Pulse Oximetry 93 Oxygen Delivery Mechanical Ventilation Fraction of Inspired Oxygen 60 01/26/24 02:08 01/26/24 02:00 01/26/24 02:00 Temperature Pulse Rate 69 73 70 Respiratory Rate 26 H 26 H 26 H Blood Pressure Pulse Oximetry Oxygen Delivery Fraction of Inspired Oxygen 01/26/24 00:00 01/26/24 00:00 01/26/24 00:00 Temperature 36.8 C Pulse Rate 71 71 Respiratory Rate 26 H Blood Pressure 110/71 Pulse Oximetry 96 Oxygen Delivery Fraction of Inspired Oxygen 60 01/26/24 02:00 01/26/24 02:00 01/26/24 04:06 Temperature 36.6 C 36.8 C Pulse Rate 69 69 69 Respiratory Rate 26 H 18 Blood Pressure 134/68 139/60 Pulse Oximetry 92 95 Oxygen Delivery Fraction of Inspired Oxygen 01/26/24 04:00 01/26/24 04:00 01/26/24 04:00 Temperature Pulse Rate 67 68 68 Respiratory Rate 26 H 26 H 26 H Blood Pressure Pulse Oximetry 95 Oxygen Delivery Mechanical Ventilation Fraction of Inspired Oxygen 60 01/26/24 04:00 01/26/24 04:00 01/26/24 06:00 Temperature Pulse Rate 68 75 Respiratory Rate 26 H Blood Pressure Pulse Oximetry Oxygen Delivery Fraction of Inspired Oxygen 60 01/26/24 06:00 01/26/24 05:05 01/26/24 06:00 Temperature 36.8 C Pulse Rate 67 78 69 Respiratory Rate 26 H 24 H Blood Pressure 126/51 L Pulse Oximetry 95 96 Oxygen Delivery Mechanical Ventilation Fraction of Inspired Oxygen 60 01/26/24 06:00 01/25/24 20:00 01/26/24 07:40 Temperature Pulse Rate 82 67 83 Respiratory Rate 26 H 26 H Blood Pressure 115/65 Pulse Oximetry Oxygen Delivery Fraction of Inspired Oxygen 01/26/24 07:42 01/26/24 07:47 01/26/24 08:00 Temperature 37.0 C Pulse Rate 77 76 78 Respiratory Rate 26 H 22 H Blood Pressure 151/69 H Pulse Oximetry 99 98 Oxygen Delivery Mechanical Ventilation Fraction of Inspired Oxygen 60 01/26/24 08:00 01/26/24 08:00 01/26/24 08:00 Temperature Pulse Rate 98 98 98 Respiratory Rate 26 H 26 H 26 H Blood Pressure Pulse Oximetry 98 Oxygen Delivery Mechanical Ventilation Fraction of Inspired Oxygen 60 01/26/24 08:00 Temperature Pulse Rate Respiratory Rate Blood Pressure Pulse Oximetry Oxygen Delivery Fraction of Inspired Oxygen 60 Intake/Output Intake/Output: Intake & Output 01/23/24 01/24/24 01/25/24 01/26/24 23:59 23:59 23:59 23:59 Intake Total 2688.9 3180.9 2549.3 861.2 Output Total 1000 1400 1425 150 Balance 1688.9 1780.9 1124.3 711.2 Meds/Results Medications: Active Medications Generic Name Dose Route Start Last Admin Trade Name Freq PRN Reason Stop Dose Admin Acetaminophen 650 mg 01/20/24 10:08 01/20/24 10:29 Acetaminophen 325 Mg Tablet PO 650 mg Q4H PRN Administration Mild Pain (1-3) or Fever Albuterol/Ipratropium 3 ml 01/22/24 14:00 01/26/24 07:40 Ipratropium 0.5 Mg/Albuterol Sulfate 2.5 Mg Ampul.Neb 3 Ml INHALATION 3 ml Q6HRT EDMOND Administration Aspirin 81 mg 01/19/24 08:00 01/25/24 08:05 Aspirin 81 Mg Chewable Tablet PO 81 mg DAILY@0800 EDMOND Administration Atorvastatin Calcium 40 mg 01/19/24 09:00 01/25/24 08:05 Atorvastatin 40 Mg Tablet PO 40 mg DAILY EDMOND Administration Clopidogrel Bisulfate 75 mg 01/19/24 09:00 01/25/24 08:05 Clopidogrel Bisulfate 75 Mg Tablet PO 75 mg DAILY EDMOND Administration Dextrose 12.5 gm 01/18/24 23:28 Dextrose 50% 25 Gm/50 Ml Syringe IV PUSH PRN PRN Hypoglycemia Protocol Glucagon 1 mg 01/18/24 23:28 Glucagon For Inj 1 Mg Vial IM PRN PRN Hypoglycemia Protocol Glucose 15 gm 01/18/24 23:28 Glucose Oral Gel 15 Gm Of Glucse In 37.5 Gm Tube PO PRN PRN Hypoglycemia Protocol Heparin Sodium (Porcine) 4,500 units 01/18/24 23:25 Heparin Sodium 5,000 Units/Ml Vial IV PUSH PRN PRN aPTT less than 55 seconds Heparin Sodium (Porcine) 2,500 units 01/18/24 23:25 01/24/24 06:17 Heparin Sodium 5,000 Units/Ml Vial IV PUSH 2,500 units PRN PRN Administration aPTT 55 - 70 seconds Hydrocortisone Sodium Succinate 50 mg 01/21/24 12:05 01/26/24 05:45 Hydrocortisone Sodium Succinate 100 Mg/2 Ml Vial IV PUSH 01/26/24 12:04 50 mg Q6H EDMOND Administration Ceftriaxone Sodium 1 gm in 50 mls @ 100 mls/hr 01/19/24 17:00 01/25/24 17:33 Rocephin 1 Gm/Ns 50 Ml IVPB Infused Q24H EDMOND Infusion Heparin Sodium/Dextrose 25,000 units in 250 mls @ 0 mls/hr 01/18/24 23:25 01/26/24 00:00 Heparin Sodium/D5w 100 Units/Ml IV CONT 0 units/hr .Q0M EDMOND 0 mls/hr Titration Protocol 0 UNITS/HR Dextrose 1,000 mls @ 100 mls/hr 01/18/24 23:28 Dextrose 5% 1,000 Ml IVPB PRN PRN Hypoglycemia Protocol Fentanyl Citrate 2,500 mcg in 250 mls @ 12.5 mls/hr 01/21/24 07:40 01/26/24 08:00 Fentanyl 2,500 Mcg/Ns 250 Ml IV CONT 125 mcg/hr .Q20H EDMOND 12.5 mls/hr Titration Protocol 125 MCG/HR Midazolam HCl 100 mg in 100 mls @ 7 mls/hr 01/21/24 07:40 01/26/24 08:00 Versed 100 Mg/Ns 100 Ml IV CONT 7 mg/hr .[id number] EDMOND 7 mls/hr Titration Protocol 7 MG/HR Norepinephrine Bitartrate 8 mg in 250 mls @ 9.375 mls/hr 01/22/24 08:05 01/25/24 13:13 Levophed 8 Mg/D5w 250 Ml IV CONT Not Given .Q24H EDMOND Protocol 5 MCG/MIN Metronidazole 500 mg in 100 mls @ 100 mls/hr 01/23/24 08:00 01/26/24 08:31 Flagyl 500 Mg/Iso Soln 100 Ml IVPB 100 mls/hr Q8H EDMOND Administration Insulin Human Regular 100 100 mls @ 1 mls/hr 01/23/24 08:15 01/25/24 22:11 units/ Sodium Chloride IV CONT Not Given .Q24H EDMOND Protocol 1 UNITS/HR Insulin Aspart 4 - 8 units 01/19/24 12:00 01/26/24 08:32 Insulin Aspart (*Bkc) 100 Units/Ml SUB-Q 4 units Q4H EDMOND Administration Protocol Insulin Glargine 65 units 01/26/24 09:00 01/26/24 08:32 Insulin Glargine (*Bkc) 100 Units/Ml SUB-Q 65 units QAM EDMOND Administration Levothyroxine Sodium 112 mcg 01/19/24 06:30 01/26/24 05:46 Levothyroxine Sodium 112 Mcg Tablet PO 112 mcg DAILY@0630 EDMOND Administration Metoclopramide HCl 10 mg 01/25/24 12:00 01/26/24 05:46 Metoclopramide Hcl 10 Mg/10 Ml Soln Udc FEED TUBE 10 mg Q6HR EDMOND Administration Midazolam HCl 2 mg 01/21/24 07:40 01/23/24 09:38 Midazolam Hcl (*Crx) 2 Mg/2 Ml Vial IV PUSH 2 mg Q5M PRN Administration ventilator asynchrony Midazolam HCl 4 mg 01/21/24 09:35 01/26/24 05:58 Midazolam Hcl (*Crx) 2 Mg/2 Ml Vial IV PUSH 4 mg PRN PRN Administration Sedation Multi-Ingred Cream/Lotion/Oil/Oint 1 applic 01/21/24 09:00 01/26/24 08:30 Mineral Oil/White Petrolatum Ointment EACH EYE 1 applic Q12HR EDMOND Administration Ondansetron HCl 4 mg 01/18/24 22:13 Ondansetron Inj 4 Mg/2 Ml Vial IV PUSH Q4H PRN Nausea Pantoprazole Sodium 40 mg 01/19/24 09:00 01/26/24 08:30 Pantoprazole Sodium Iv 40 Mg Vial IV PUSH 40 mg Q12HR EDMOND Administration Polyethylene Glycol 17 gm 01/24/24 09:00 01/25/24 08:06 Polyethylene Glycol 3350 17 Gm Powd.Pack PO 17 gm QAM EDMOND Administration Radiology Results: ITS Impressions Chest/Abdomen/Pelvis CTA 01/18/24 18:30 IMPRESSION: Nonocclusive acute subsegmental pulmonary embolus in the left lower lobe. Very small clot burden. No evidence of right heart strain. Left lower lobe pneumonia. Mild hepatomegaly. Possible cystitis. Otherwise, no acute abdominopelvic process detected. Head CT 01/19/24 05:47 Impression: No intracranial hemorrhage, mass, or acute infarct. Atrophy and chronic white matter changes, as above. Venous Doppler Study 01/19/24 15:06 IMPRESSION: Negative bilateral lower extremity venous US. No deep vein thrombosis. Chest/Abdomen/Pelvis CT 01/22/24 12:43 IMPRESSION: Worsening respiratory status with bibasilar consolidation and interstitial thickening with patchy groundglass opacification bilaterally -findings suggesting ARDS. Mural thickening within the rectosigmoid colon with multiple diverticula and prominence of the vasa recta, possibly early diverticulitis. Interval development of perihepatic fluid, compared with previous study. Renal Ultrasound 01/24/24 12:05 IMPRESSION: 1. Normal kidneys without hydronephrosis. Abdomen X-Ray 01/25/24 14:53 IMPRESSION: NG tube in distal stomach Nonspecific abdomen Chest X-Ray 01/26/24 06:29 IMPRESSION: 1. Stable diffuse lung disease, consistent with pneumonia superimposed on emphysema. Labs Labs: Laboratory Results - last 24 hr 01/25/24 01/25/24 01/25/24 10:03 10:59 12:04 WBC RBC Hgb Hct MCV MCH MCHC RDW Plt Count MPV APTT Puncture Site ABG pH ABG pCO2 ABG pO2 ABG PO2/FiO2 Ratio ABG HCO3 ABG O2 Saturation ABG O2 Content ABG Base Excess A-a Gradient Oxyhemoglobin Carboxyhemoglobin Methemoglobin Reduced Hemoglobin Total Hemoglobin O2 Delivery Device O2 Liters/Min Minute Volume Vent Rate Vent Mode FiO2 Tidal Volume PEEP Peak Inspir Pressure Pressure Support Sodium Potassium Chloride Carbon Dioxide Anion Gap BUN Creatinine Estim Creat Clear Calc Estimated GFR Glucose POC Capillary Glucose 277 H 246 H 215 H Calcium Magnesium Total Bilirubin AST ALT Alkaline Phosphatase Total Protein Albumin Hep Bs Antigen Hep Bs Antibody 1101/25/24 01/25/24 12:17 13:03 13:56 WBC RBC Hgb Hct MCV MCH MCHC RDW Plt Count MPV APTT 76.3 H Puncture Site ABG pH ABG pCO2 ABG pO2 ABG PO2/FiO2 Ratio ABG HCO3 ABG O2 Saturation ABG O2 Content ABG Base Excess A-a Gradient Oxyhemoglobin Carboxyhemoglobin Methemoglobin Reduced Hemoglobin Total Hemoglobin O2 Delivery Device O2 Liters/Min Minute Volume Vent Rate Vent Mode FiO2 Tidal Volume PEEP Peak Inspir Pressure Pressure Support Sodium Potassium Chloride Carbon Dioxide Anion Gap BUN Creatinine Estim Creat Clear Calc Estimated GFR Glucose POC Capillary Glucose 209 H 182 H Calcium Magnesium Total Bilirubin AST ALT Alkaline Phosphatase Total Protein Albumin Hep Bs Antigen Hep Bs Antibody 01/25/24 01/25/24 01/25/24 14:51 15:56 17:02 WBC RBC Hgb Hct MCV MCH MCHC RDW Plt Count MPV APTT Puncture Site ABG pH ABG pCO2 ABG pO2 ABG PO2/FiO2 Ratio ABG HCO3 ABG O2 Saturation ABG O2 Content ABG Base Excess A-a Gradient Oxyhemoglobin Carboxyhemoglobin Methemoglobin Reduced Hemoglobin Total Hemoglobin O2 Delivery Device O2 Liters/Min Minute Volume Vent Rate Vent Mode FiO2 Tidal Volume PEEP Peak Inspir Pressure Pressure Support Sodium Potassium Chloride Carbon Dioxide Anion Gap BUN Creatinine Estim Creat Clear Calc Estimated GFR Glucose POC Capillary Glucose 183 H 189 H 188 H Calcium Magnesium Total Bilirubin AST ALT Alkaline Phosphatase Total Protein Albumin Hep Bs Antigen Hep Bs Antibody 01/25/24 01/25/24 01/25/24 18:03 18:51 18:54 WBC RBC Hgb Hct MCV MCH MCHC RDW Plt Count MPV APTT 74.8 H Puncture Site ABG pH ABG pCO2 ABG pO2 ABG PO2/FiO2 Ratio ABG HCO3 ABG O2 Saturation ABG O2 Content ABG Base Excess A-a Gradient Oxyhemoglobin Carboxyhemoglobin Methemoglobin Reduced Hemoglobin Total Hemoglobin O2 Delivery Device O2 Liters/Min Minute Volume Vent Rate Vent Mode FiO2 Tidal Volume PEEP Peak Inspir Pressure Pressure Support Sodium Potassium Chloride Carbon Dioxide Anion Gap BUN Creatinine Estim Creat Clear Calc Estimated GFR Glucose POC Capillary Glucose 193 H 161 H Calcium Magnesium Total Bilirubin AST ALT Alkaline Phosphatase Total Protein Albumin Hep Bs Antigen Hep Bs Antibody 01/25/24 01/25/24 01/26/24 19:54 23:48 04:12 WBC RBC Hgb Hct MCV MCH MCHC RDW Plt Count MPV APTT Puncture Site ABG pH ABG pCO2 ABG pO2 ABG PO2/FiO2 Ratio ABG HCO3 ABG O2 Saturation ABG O2 Content ABG Base Excess A-a Gradient Oxyhemoglobin Carboxyhemoglobin Methemoglobin Reduced Hemoglobin Total Hemoglobin O2 Delivery Device O2 Liters/Min Minute Volume Vent Rate Vent Mode FiO2 Tidal Volume PEEP Peak Inspir Pressure Pressure Support Sodium Potassium Chloride Carbon Dioxide Anion Gap BUN Creatinine Estim Creat Clear Calc Estimated GFR Glucose POC Capillary Glucose 196 H 237 H 256 H Calcium Magnesium Total Bilirubin AST ALT Alkaline Phosphatase Total Protein Albumin Hep Bs Antigen Hep Bs Antibody 01/26/24 01/26/24 01/26/24 05:37 05:40 07:32 WBC 22.5 H RBC 2.51 L Hgb 7.9 L Hct 24.6 L MCV 98.0 MCH 31.5 MCHC 32.1 RDW 15.4 H Plt Count 275 MPV 11.8 H APTT 31.2 Puncture Site Right radial ABG pH 7.338 L ABG pCO2 41.8 ABG pO2 85.4 ABG PO2/FiO2 Ratio 1.42 ABG HCO3 21.9 L ABG O2 Saturation 95.9 ABG O2 Content 11.8 L ABG Base Excess -3.6 A-a Gradient 296.4 Oxyhemoglobin 95.0 Carboxyhemoglobin 0.6 Methemoglobin 0.1 Reduced Hemoglobin 4.3 Total Hemoglobin 8.7 L O2 Delivery Device Ventilator O2 Liters/Min Not Reportable Minute Volume Not Reportable Vent Rate 26 Vent Mode Cmv FiO2 60 Tidal Volume 360 PEEP 14 Peak Inspir Pressure Not Reportable Pressure Support Not Reportable Sodium 147 H Potassium 4.0 Chloride 107 Carbon Dioxide 24 Anion Gap 16 H BUN 128 H D Creatinine 3.00 H Estim Creat Clear Calc 15 Estimated GFR 15 L Glucose 251 H POC Capillary Glucose Calcium 7.8 L Magnesium 2.5 H Total Bilirubin 0.7 AST 34 ALT 19 Alkaline Phosphatase 67 Total Protein 8.0 Albumin 4.1 Hep Bs Antigen Negative Hep Bs Antibody Negative 01/26/24 07:50 WBC RBC Hgb Hct MCV MCH MCHC RDW Plt Count MPV APTT Puncture Site ABG pH ABG pCO2 ABG pO2 ABG PO2/FiO2 Ratio ABG HCO3 ABG O2 Saturation ABG O2 Content ABG Base Excess A-a Gradient Oxyhemoglobin Carboxyhemoglobin Methemoglobin Reduced Hemoglobin Total Hemoglobin O2 Delivery Device O2 Liters/Min Minute Volume Vent Rate Vent Mode FiO2 Tidal Volume PEEP Peak Inspir Pressure Pressure Support Sodium Potassium Chloride Carbon Dioxide Anion Gap BUN Creatinine Estim Creat Clear Calc Estimated GFR Glucose POC Capillary Glucose 227 H Calcium Magnesium Total Bilirubin AST ALT Alkaline Phosphatase Total Protein Albumin Hep Bs Antigen Hep Bs Antibody Quality VTE Prophylaxis VTE prophylaxis: pharmacologic ordered (Heparin GGT per protocol)
[2024-01-26] MEDS: ATORVASTATIN 40 MG TABLET PO (10:19)
[2024-01-26] MEDS: polyethylene glycoL 3350 17 GM POWD.PACK PO (10:19)
[2024-01-26] MEDS: ASPIRIN 81 MG CHEWABLE TABLET PO (10:19)
[2024-01-26] MEDS: CLOPIDOGREL BISULFATE 75 MG TABLET PO (10:19)
--- NOTE | 2024-01-26 10:32 | PCFNICU ---
ICU Rounding Note: Pt current nutrition is Vital AF 1.2 @ 30 ml/h. To advance to goal of 50 ml/h to provide 1320 kcal, 83 g protein, 892 ml free water. Flush 150 q 4 hours. Nutrition recommendation: Modify formula to Nepro @ goal rate 35 ml/h when appropriate: 1386 kcal, 63 g protein, 560 ml free water Last recorded weight is 80 kg. Bowel Motility: +2 BMs 01/26/24 Labs Reviewed: Hgb 7.3, Hct 24.4, Alb 3.4, BUN 67, Cre 2.3, Glu 404 Meds Noted: Reglan, Heparin, novolog, lantus, zofran, protonix Skin: No skin issues Additional Notes: Dialysis catheter placed and dialysis to start today. Discussed with Dr Dunbar switching formula to Nepro, he prefers to keep it with Vital AF 1.2 for now. Pt was having some intolerance with residuals >200ml (not meeting hold criteria of 500 ml) and tube feeding was held and restarted at lower rate. Advance to goal of 50 ml/h today as tolerated. Following daily in ICU rounds. Monitor tube feeding initiation, tolerance, wt, labs. Follow daily in ICU rounds and follow up every Friday and Friday. .
[2024-01-26 12:06] LABS: Glucose Point of Care 183 mg/dl (65-105)
[2024-01-26] MEDS: EPOETIN ALFA-EPBX 10,000 UNITS/ML VIAL 10000 UNITS IV PUSH (13:47)
[2024-01-26] MEDS: FENTANYL 2,500MCG/NS250ML(*CRX 2,500 MCG/250 ML BAG 12.5 MCG IV CONT (14:01)
--- NOTE | 2024-01-26 14:30 | P.PNNP_ITS ---
Progress Note: A&P Assessment and Plan (1) Acute kidney injury: Code(s): N17.9 - Acute kidney failure, unspecified Status: Acute Assessment and Plan: * initial improvement on admission (from 1.5mg/dl to 0.9mg/dl) * then worsening again noted on 01/21 (up to 1.3mg/dl and subsequently 2.3mg/dl on 01/22) * suspect multifactorial etiology: * contrast exposure * infection/sepsis * hemodynamic instability/shock * possible prerenal factors * diuretic use prior to admission * hypoxia * other(?) * evaluation to date noted: * CPK mildly elevated * UA with blood/protein and possible infection * urine electrolytes prerenal * moderate proteinuria * renal ultrasound w/o obstruction * reasonable urine output noted * giving worsening BUN and respiratory status, initiate dialysis today * plan likely dialysis again tomorrow for further clearance and fluid removal if needed * follow trend of repeat labs and UOP for possible renal recovery (2) Acute respiratory failure: Code(s): J96.00 - Acute respiratory failure, unspecified whether with hypoxia or hypercapnia Status: Acute Assessment and Plan: * thought to be secondary to a combination of pneumonia and pulmonary embolus +/- pulmonary edema * appears to have progressed to ARDS * intubated and placed on mechanical ventilation on 01/20 * recent CT of chest noted * requiring paralytics with sedation previously * on bronchodilator therapy and antibiotics * ventilator weaning when able (3) Septic shock: Code(s): A41.9 - Sepsis, unspecified organism; R65.21 - Severe sepsis with septic shock Status: Acute Assessment and Plan: * as noted on admission - hypotension, lactic acidosis, fevers, and hypoxia/respiratory failure * presumed source = pneumonia +/- diverticulitiis * s/p IVF resuscitation and on vasopressor support (weaned off currently) * follow culture data * on antibiotic therapy (4) Community acquired pneumonia: Qualifiers: Laterality: left Lung location: lower lobe of lung Qualified Code(s): J18.9 - Pneumonia, unspecified organism Code(s): J18.9 - Pneumonia, unspecified organism Status: Acute Assessment and Plan: * based on evidence to date * viral swab for RSV/COVID/influenza negative * follow culture data * on antibiotics (5) Pulmonary embolism: Code(s): I26.99 - Other pulmonary embolism without acute cor pulmonale Status: Acute Assessment and Plan: * admission CTA of chest with nonocclusive acute subsegmental PE in the left lower lobe with very small clot burden * venous dopplers negative * on anticoagulation (6) Diverticulitis: Code(s): K57.92 - Diverticulitis of intestine, part unspecified, without perforation or abscess without bleeding Status: Acute Assessment and Plan: * CT abdomen pelvis with mural thickening within the rectosigmoid colon with multiple diverticula and prominence of the vasa recta, possibly early diverticulitis. 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 Subjective Date/time seen: 01/26/24 14:30 Interval history: Follow-up for acute kidney injury/acute renal failure. Remains intubated/sedated and on mechanical ventilation; paralytics off at this time; creatinine about the same but BUN has trended up with noted mild decline in urine output in the last 24 hours; remains hemodynamically stable off vasopressor therapy; s/p temporary dialysis catheter placement earlier today; tolerating dialysis treatment at the time of my visit (seen on HD at 2:20PM). Exam Narrative: General: elderly but WD/WN female in NAD Heart: normal S1 and S2; no rub Lungs: coarse breath sounds throughout Abdomen: soft, nontender, nondistended, positive bowel sounds Extremities: no cyanosis or clubbing; no edema Skin: warm and intact Objective Data Vital Signs Vital Signs: Vital Signs Temp Pulse Resp BP Pulse Ox O2 Del Method FiO2 01/26/24 14:30 74 121/56 L 01/26/24 14:00 70 01/26/24 14:02 70 32 H 01/26/24 14:01 70 32 H 01/26/24 13:56 70 32 H 01/26/24 14:05 71 30 H 01/26/24 14:02 70 94 Mechanical Ventilation 50 01/26/24 13:55 67 30 H 01/26/24 14:15 72 127/55 L 01/26/24 14:00 70 133/57 L 01/26/24 13:45 67 144/61 H 01/26/24 13:30 68 159/56 H 01/26/24 13:14 71 163/59 H 01/26/24 13:00 50 01/26/24 13:00 98.6 F 73 26 H 160/90 H 96 01/26/24 12:00 50 01/26/24 12:00 98.4 F 69 22 H 157/58 H 96 01/26/24 12:00 75 01/26/24 12:00 71 26 H 96 Mechanical Ventilation 50 01/26/24 12:08 71 26 H 01/26/24 12:05 71 26 H 01/26/24 10:45 68 98 Mechanical Ventilation 50 01/26/24 10:00 62 01/26/24 08:00 90 01/26/24 10:57 68 26 H 97 Mechanical Ventilation 50 01/26/24 10:00 98.3 F 63 20 147/57 H 97 01/26/24 10:02 66 26 H 01/26/24 10:02 66 26 H 01/26/24 08:00 60 01/26/24 08:00 98 26 H 98 Mechanical Ventilation 60 01/26/24 08:00 98 26 H 01/26/24 08:00 98 26 H 01/26/24 08:00 98.6 F 78 22 H 151/69 H 98 01/26/24 07:47 76 26 H 01/26/24 07:42 77 99 Mechanical Ventilation 60 01/26/24 07:40 83 26 H 01/25/24 20:00 67 26 H 115/65 01/26/24 06:00 82 01/26/24 06:00 98.3 F 69 24 H 126/51 L 96 01/26/24 05:05 78 95 Mechanical Ventilation 60 01/26/24 06:00 67 26 H 01/26/24 06:00 75 26 H 01/26/24 04:00 60 01/26/24 04:00 68 01/26/24 04:00 68 26 H 95 Mechanical Ventilation 60 01/26/24 04:00 68 26 H 01/26/24 04:00 67 26 H 01/26/24 04:06 98.3 F 69 18 139/60 95 01/26/24 02:00 69 01/26/24 02:00 98 F 69 26 H 134/68 92 01/26/24 00:00 98.2 F 71 26 H 110/71 96 01/26/24 00:00 60 01/26/24 00:00 71 01/26/24 02:00 70 26 H 01/26/24 02:00 73 26 H 01/26/24 02:08 69 26 H 01/26/24 02:05 70 93 Mechanical Ventilation 60 01/26/24 02:03 71 26 H 01/26/24 01:42 71 26 H 01/26/24 01:42 71 26 H 01/26/24 00:00 71 26 H 96 Mechanical Ventilation 60 01/26/24 00:00 68 26 H 01/26/24 00:00 69 26 H 01/25/24 23:02 67 96 Mechanical Ventilation 60 01/25/24 22:13 98.3 F 77 26 H 123/58 L 96 01/25/24 22:00 66 26 H 01/25/24 22:00 66 26 H 01/25/24 22:00 65 01/25/24 20:00 60 01/25/24 20:00 67 01/25/24 20:00 67 26 H 94 Mechanical Ventilation 60 01/25/24 20:00 67 26 H 01/25/24 20:17 98.4 F 67 26 H 116/55 L 96 01/25/24 20:05 65 95 Mechanical Ventilation 60 01/25/24 20:17 68 26 H 01/25/24 20:10 66 26 H 01/25/24 20:14 67 26 H 01/25/24 20:00 66 26 H Intake/Output Intake/Output: Intake & Output 01/23/24 01/24/24 01/25/24 01/26/24 23:59 23:59 23:59 23:59 Intake Total 2688.9 3180.9 2549.3 2000.7 Output Total 1000 1400 1425 2021 Balance 1688.9 1780.9 1124.3 -20.3 Meds/Results Medications: Active Medications Generic Name Dose Route Start Last Admin Trade Name Freq PRN Reason Stop Dose Admin Acetaminophen 650 mg 11/19/24 10:08 01/20/24 10:29 Acetaminophen 325 Mg Tablet PO 650 mg Q4H PRN Administration Mild Pain (1-3) or Fever Albuterol/Ipratropium 3 ml 01/22/24 14:00 01/26/24 13:55 Ipratropium 0.5 Mg/Albuterol Sulfate 2.5 Mg Ampul.Neb 3 Ml INHALATION 3 ml Q6HRT EDMOND Administration Aspirin 81 mg 01/19/24 08:00 01/26/24 10:19 Aspirin 81 Mg Chewable Tablet PO 81 mg DAILY@0800 EDMOND Administration Atorvastatin Calcium 40 mg 01/19/24 09:00 01/26/24 10:19 Atorvastatin 40 Mg Tablet PO 40 mg DAILY EDMOND Administration Clopidogrel Bisulfate 75 mg 01/19/24 09:00 01/26/24 10:19 Clopidogrel Bisulfate 75 Mg Tablet PO 75 mg DAILY EDMOND Administration Dextrose 12.5 gm 01/18/24 23:28 Dextrose 50% 25 Gm/50 Ml Syringe IV PUSH PRN PRN Hypoglycemia Protocol Glucagon 1 mg 01/18/24 23:28 Glucagon For Inj 1 Mg Vial IM PRN PRN Hypoglycemia Protocol Glucose 15 gm 01/18/24 23:28 Glucose Oral Gel 15 Gm Of Glucse In 37.5 Gm Tube PO PRN PRN Hypoglycemia Protocol Heparin Sodium (Porcine) 4,500 units 01/18/24 23:25 01/26/24 17:28 Heparin Sodium 5,000 Units/Ml Vial IV PUSH 4,500 units PRN PRN Administration aPTT less than 55 seconds Heparin Sodium (Porcine) 2,500 units 01/18/24 23:25 01/24/24 06:17 Heparin Sodium 5,000 Units/Ml Vial IV PUSH 2,500 units PRN PRN Administration aPTT 55 - 70 seconds Ceftriaxone Sodium 1 gm in 50 mls @ 100 mls/hr 01/19/24 17:00 01/26/24 17:20 Rocephin 1 Gm/Ns 50 Ml IVPB 100 mls/hr Q24H EDMOND Administration Heparin Sodium/Dextrose 25,000 units in 250 mls @ 11 mls/hr 01/18/24 23:25 01/26/24 17:30 Heparin Sodium/D5w 100 Units/Ml IV CONT 1,100 units/hr .[id number] EDMOND 11 mls/hr Titration Protocol 1,100 UNITS/HR Dextrose 1,000 mls @ 100 mls/hr 01/18/24 23:28 Dextrose 5% 1,000 Ml IVPB PRN PRN Hypoglycemia Protocol Fentanyl Citrate 2,500 mcg in 250 mls @ 12.5 mls/hr 01/21/24 07:40 01/26/24 18:02 Fentanyl 2,500 Mcg/Ns 250 Ml IV CONT 125 mcg/hr .Q20H EDMOND 12.5 mls/hr Titration Protocol 125 MCG/HR Midazolam HCl 100 mg in 100 mls @ 5 mls/hr 01/21/24 07:40 01/26/24 18:02 Versed 100 Mg/Ns 100 Ml IV CONT 5 mg/hr .Q20H EDMOND 5 mls/hr Administration Protocol 5 MG/HR Norepinephrine Bitartrate 8 mg in 250 mls @ 9.375 mls/hr 01/22/24 08:05 01/25/24 13:13 Levophed 8 Mg/D5w 250 Ml IV CONT Not Given .Q24H EDMOND Protocol 5 MCG/MIN Metronidazole 500 mg in 100 mls @ 100 mls/hr 01/23/24 08:00 01/26/24 17:20 Flagyl 500 Mg/Iso Soln 100 Ml IVPB 100 mls/hr Q8H EDMOND Administration Insulin Human Regular 100 100 mls @ 1 mls/hr 01/23/24 08:15 01/25/24 22:11 units/ Sodium Chloride IV CONT Not Given .Q24H EDMOND Protocol 1 UNITS/HR Albumin Human 50 mls @ 999 mls/hr 01/26/24 11:40 Albutein IVPB 01/27/24 11:39 Q10M PRN HYPOTENSION Insulin Aspart 4 - 8 units 01/19/24 12:00 01/26/24 17:28 Insulin Aspart (*Bkc) 100 Units/Ml SUB-Q Not Given Q4H EDMOND Protocol Insulin Glargine 65 units 01/26/24 09:00 01/26/24 08:32 Insulin Glargine (*Bkc) 100 Units/Ml SUB-Q 65 units QAM EDMOND Administration Levothyroxine Sodium 112 mcg 01/19/24 06:30 01/26/24 05:46 Levothyroxine Sodium 112 Mcg Tablet PO 112 mcg DAILY@0630 EDMOND Administration Metoclopramide HCl 10 mg 01/25/24 12:00 01/26/24 17:30 Metoclopramide Hcl 10 Mg/10 Ml Soln Udc FEED TUBE 10 mg Q6HR EDMOND Administration Midazolam HCl 2 mg 01/21/24 07:40 01/23/24 09:38 Midazolam Hcl (*Crx) 2 Mg/2 Ml Vial IV PUSH 2 mg Q5M PRN Administration ventilator asynchrony Midazolam HCl 4 mg 01/21/24 09:35 01/26/24 05:58 Midazolam Hcl (*Crx) 2 Mg/2 Ml Vial IV PUSH 4 mg PRN PRN Administration Sedation Multi-Ingred Cream/Lotion/Oil/Oint 1 applic 01/21/24 09:00 01/26/24 08:30 Mineral Oil/White Petrolatum Ointment EACH EYE 1 applic Q12HR EDMOND Administration Ondansetron HCl 4 mg 01/18/24 22:13 Ondansetron Inj 4 Mg/2 Ml Vial IV PUSH Q4H PRN Nausea Pantoprazole Sodium 40 mg 01/19/24 09:00 01/26/24 08:30 Pantoprazole Sodium Iv 40 Mg Vial IV PUSH 40 mg Q12HR EDMOND Administration Polyethylene Glycol 17 gm 01/24/24 09:00 01/26/24 10:19 Polyethylene Glycol 3350 17 Gm Powd.Pack PO 17 gm QAM EDMOND Administration Vancomycin HCl 1 each 01/26/24 11:43 Vancomycin For Hemodialysis IVPB PRN PRN Vancomycin Protocol Radiology Results: ITS Impressions Chest/Abdomen/Pelvis CTA 01/18/24 18:30 IMPRESSION: Nonocclusive acute subsegmental pulmonary embolus in the left lower lobe. Very small clot burden. No evidence of right heart strain. Left lower lobe pneumonia. Mild hepatomegaly. Possible cystitis. Otherwise, no acute abdominopelvic process detected. Head CT 01/19/24 05:47 Impression: No intracranial hemorrhage, mass, or acute infarct. Atrophy and chronic white matter changes, as above. Venous Doppler Study 01/19/24 15:06 IMPRESSION: Negative bilateral lower extremity venous US. No deep vein thrombosis. Chest/Abdomen/Pelvis CT 01/22/24 12:43 IMPRESSION: Worsening respiratory status with bibasilar consolidation and interstitial thickening with patchy groundglass opacification bilaterally -findings suggesting ARDS. Mural thickening within the rectosigmoid colon with multiple diverticula and prominence of the vasa recta, possibly early diverticulitis. Interval development of perihepatic fluid, compared with previous study. Renal Ultrasound 01/24/24 12:05 IMPRESSION: 1. Normal kidneys without hydronephrosis. Abdomen X-Ray 01/25/24 14:53 IMPRESSION: NG tube in distal stomach Nonspecific abdomen Chest X-Ray 01/26/24 09:43 IMPRESSION: 1. Central line tip at the superior cavoatrial junction. 2. Stable diffuse lung disease, consistent with pneumonia superimposed on emphysema. 3. Small left pleural effusion. Labs Labs: Laboratory Tests 01/26/24 05:37 01/26/24 05:37 Calcium 7.8 L Magnesium 2.5 H Total Bilirubin 0.7 AST 34 ALT 19 Alkaline Phosphatase 67 Total Protein 8.0 Albumin 4.1 Microbiology 01/23/24 21:31 Sputum Sputum Culture - Preliminary Staphylococcus aureus 01/24/24 10:17 Urine [place] Urine Culture - Final
[2024-01-26 16:12] LABS: Glucose Point of Care 135 mg/dl (65-105)
[2024-01-26] MEDS: VANCOMYCIN 1,500 MG/NS 500 ML 1,500 MG/500 ML BAG 250 MG IVPB (17:20)
[2024-01-26] MEDS: HEPARIN SODIUM 5,000 UNITS/ML VIAL 4500 UNITS IV PUSH (17:28)
[2024-01-26] MEDS: MIDAZOLAM 100MG/NS 100ML(*CRX) 100 MG/100 ML BAG IV CONT (18:02)
[2024-01-26 20:16] LABS: Glucose Point of Care 140 mg/dl (65-105)
[2024-01-26] MEDS: HEPARIN SOD/D5W 100 UNITS/ML 25,000 UNITS/250 ML BAG 11 UNITS IV CONT (23:35)
[2024-01-26 23:44] LABS: Glucose Point of Care 160 mg/dl (65-105)
[2024-01-27] VITALS (49 sets, daily range): BP systolic 84–131; BP diastolic 45–57; PULSE 66–86; RESP 14–30; TEMP 36.9–38; O2SAT 95–99
[2024-01-27 00:56] LABS: Partial Thromboplastin Time 168.2 Seconds (22.3-36.8)
[2024-01-27] MEDS: IPRATROPIUM 0.5 MG/ALBUTEROL SULFATE 2.5 MG AMPUL.NEB 3 ML INHALATION ×4 (02:10→20:29)
[2024-01-27 03:52] LABS: Hematocrit 22.3 % (37.0-47.0); Hemoglobin 7.1 g/dL (12.0-15.0); Mean Corpuscular HGB Conc 31.8 g/dl (32-36); Mean Corpuscular Hemoglobin 31.6 pg (26-34); Mean Corpuscular Volume 99.1 fl (80-100); Mean Platelet Volume 11.6 fl (7.4-10.4); Platelet Count Result 245 k/mm3 (150-375); Red Blood Count 2.25 M/mm3 (4.2-5.4); Red Cell Distribution Width 15.6 % (11.5-14.5); White Blood Count 21.4 K/mm3 (4.5-10.0)
[2024-01-27 04:09] LABS: Alanine Aminotransferase 21 U/L (6-35); Albumin Level 3.5 g/dL (3.5-5.1); Alkaline Phosphatase 98 U/L (38-126); Anion Gap 9 mmol/L (4-12); Aspartate Amino Transferase 54 U/L (14-36); Bilirubin,Total 0.6 mg/dL (0.2-1.3); Blood Urea Nitrogen 76 mg/dL (7-17); Carbon Dioxide 24 mmol/L (22-30); Chloride 106 mmol/L (98-107); Estimated CRCL calculation 22 ml/min; Estimated Glomerular Filt Rate 25; Glucose 229 mg/dL (65-110); Magnesium 2.1 mg/dL (1.6-2.3); Potassium 3.6 mmol/L (3.4-5.0); Sodium 139 mmol/L (137-145)
[2024-01-27 04:25] LABS: Vancomycin Random 19.7 ug/mL (10-20)
[2024-01-27 04:55] LABS: Alveolar/Arterial O2 Gradient 298.8 mmHg; Base Excess ABG -3.9 mEq/l (+/-2.0); Carboxyhemoglobin 0.8 % THb (0-2.0); Fractional Inspired Oxygen 60 %; HCO3 ABG 21.3 mEq/l (22.0-26.0); Methemoglobin ABG 0.2 %THb (0-1.5); Oxygen Content ABG 10.3 %vol (16.0-22.0); Oxygen Saturation ABG 96.1 % (95.0-100.0); Oxyhemoglobin 94.7 % THb (90.0-100.0); PCO2 ABG 39.2 mmHg (35.0-45.0); PO2 ABG 85.9 mmHg (80.0-100.0); PO2 FiO2 Ratio Arterial Blood 1.43 %; Reduced Hemoglobin 4.3 %THb (0-5.0); pH ABG 7.353 (7.350-7.450)
[2024-01-27 04:56] LABS: Device VENTILATOR; Modified Allen's Test Pass; Site Drawn RIGHT RADIAL; Total Hemoglobin 7.6 g/dL (12.0-18.0)
[2024-01-27 04:57] LABS: Arterial Blood Gas PEEP 14 cmH2O; Arterial Blood Gas Tidal Volume 360 ml; Arterial Blood Gas Vent Mode CMV; Arterial Blood Gas Ventilator rate 26 /MIN
[2024-01-27 06:47] LABS: Glucose Point of Care 189 mg/dl (65-105)
[2024-01-27] MEDS: SODIUM CHLORIDE 0.9% IV 1,000 ML 999 ML IV CONT (08:05)
[2024-01-27] MEDS: ATORVASTATIN 40 MG TABLET PO (08:43)
[2024-01-27] MEDS: ASPIRIN 81 MG CHEWABLE TABLET PO (08:43)
[2024-01-27] MEDS: LEVOTHYROXINE SODIUM 112 MCG TABLET PO (08:43)
[2024-01-27] MEDS: polyethylene glycoL 3350 17 GM POWD.PACK PO (08:44)
[2024-01-27] MEDS: MINERAL OIL/WHITE PETROLATUM OINTMENT 1 APPLIC EACH EYE ×2 (08:45→21:12)
[2024-01-27 08:48] LABS: Glucose Point of Care 196 mg/dl (65-105)
[2024-01-27] MEDS: PANTOPRAZOLE SODIUM IV 40 MG VIAL IV PUSH ×2 (08:54→21:12)
[2024-01-27] MEDS: INSULIN GLARGINE (*BKC) 100 UNITS/ML 65 UNITS SUB-Q (09:01)
[2024-01-27 09:12] LABS: Partial Thromboplastin Time 33.2 Seconds (22.3-36.8)
[2024-01-27] MEDS: ALBUMIN HUMAN 25% 12.5 GM/50ML 50 ML IVPB (09:51)
[2024-01-27] MEDS: EPOETIN ALFA-EPBX 10,000 UNITS/ML VIAL 10000 UNITS IV PUSH (10:23)
--- NOTE | 2024-01-27 10:56 | PCFNICU ---
ICU Rounding Note: Pt current nutrition is Vital 1.2 @ goal rate 50 ml/h. Meeting ~87% EER with current TF; 1320 kcal, 82.5 g protein, 892 ml free water. Flushing 100 ml q 4 hours Nutrition recommendation: Switch formula to Nepro with goal of 40 ml/h to meet EER. 1584 kcal, 71 g protein, 570 ml free water - Per MD order probably tomorrow Last recorded weight is 83.5 kg. Bowel Motility: Liquid stool per FMS Labs Reviewed: Hgb 7.1, Hct 22.3, BUN 76, Cre 2.0 Meds Noted: Reglan, heparin, insulin, zofran, protonix Skin: No skin issues Additional Notes: Started dialysis yesterday. Had some high residuals so staying on Vital 1.2 with Reglan until tolerance is established. Discussed in rounds switching to Nepro probably tomorrow. Following daily in ICU rounds. Monitor tube feeding initiation, tolerance, wt, labs. Follow daily in ICU rounds and follow up every Friday and Friday. .
--- NOTE | 2024-01-27 11:01 | P.PNNP_ITS ---
Progress Note: A&P Assessment and Plan (1) Acute kidney injury: Code(s): N17.9 - Acute kidney failure, unspecified Status: Acute Assessment and Plan: * initial improvement on admission (from 1.5mg/dl to 0.9mg/dl) * then worsening again noted on 01/21 (up to 1.3mg/dl and subsequently 2.3mg/dl on 01/22) * suspect multifactorial etiology: * contrast exposure * infection/sepsis * hemodynamic instability/shock * possible prerenal factors * diuretic use prior to admission * hypoxia * other(?) * evaluation to date noted: * CPK mildly elevated * UA with blood/protein and possible infection * urine electrolytes prerenal * moderate proteinuria * renal ultrasound w/o obstruction * reasonable urine output noted * giving worsening BUN, initiated on dialysis on 01/25 * HD today again * possible DUF tomorrow for further fluid removal * follow trend of repeat labs and UOP for possible renal recovery (2) Acute respiratory failure: Code(s): J96.00 - Acute respiratory failure, unspecified whether with hypoxia or hypercapnia Status: Acute Assessment and Plan: * thought to be secondary to a combination of pneumonia and pulmonary embolus +/- pulmonary edema * appears to have progressed to ARDS * intubated and placed on mechanical ventilation on 01/20 * recent CT of chest noted * requiring paralytics with sedation at this time * on bronchodilator therapy and antibiotics * fluid removal with dialysis as tolerated * ventilator weaning when able (3) Septic shock: Code(s): A41.9 - Sepsis, unspecified organism; R65.21 - Severe sepsis with septic shock Status: Acute Assessment and Plan: * as noted on admission - hypotension, lactic acidosis, fevers, and hypoxia/respiratory failure * presumed source = pneumonia +/- diverticulitiis * s/p IVF resuscitation and on vasopressor support (weaned off currently) * follow culture data * on antibiotic therapy (4) Community acquired pneumonia: Qualifiers: Laterality: left Lung location: lower lobe of lung Qualified Code(s): J18.9 - Pneumonia, unspecified organism Code(s): J18.9 - Pneumonia, unspecified organism Status: Acute Assessment and Plan: * based on evidence to date * viral swab for RSV/COVID/influenza negative * follow culture data * on antibiotics (5) Pulmonary embolism: Code(s): I26.99 - Other pulmonary embolism without acute cor pulmonale Status: Acute Assessment and Plan: * admission CTA of chest with nonocclusive acute subsegmental PE in the left lower lobe with very small clot burden * venous dopplers negative * anticoagulation on hold due to low H/H (6) Diverticulitis: Code(s): K57.92 - Diverticulitis of intestine, part unspecified, without perforation or abscess without bleeding Status: Acute Assessment and Plan: * CT abdomen pelvis with mural thickening within the rectosigmoid colon with multiple diverticula and prominence of the vasa recta, possibly early diverticulitis. Interval development of perihepatic fluid, compared with previous study * follow culturs * remains on antibiotics (7) Anemia: Code(s): D64.9 - Anemia, unspecified Status: Acute Assessment and Plan: * presumably due to YESI and acute illness * noted drop in H/H today (01/26) * no evidence of GI loss * PRBC transfusion per protocol * follow trend of H/H (8) Diabetes: Code(s): E11.9 - Type 2 diabetes mellitus without complications Status: Acute Assessment and Plan: * follow accu-cheks * glycemic control per color corrector/hospitalist Will continue to follow. Subjective Date/time seen: 01/27/24 11:01 Interval history: Follow-up for acute kidney injury/acute renal failure. Tolerated dialysis treatment yesterday and currently (seen on HD at 10:50AM) although fluid removal with dialysis has been challenging due to bouts of hypotension; remains intubated/sedated and on mechanical ventilation; heparin gtt off due to drop in H/H by AM labs; reasonable urine output noted. Exam Narrative: General: elderly but WD/WN female in NAD Heart: normal S1 and S2; no rub Lungs: coarse breath sounds throughout Abdomen: soft, nontender, nondistended, positive bowel sounds Extremities: no cyanosis or clubbing; no edema Skin: no rash Objective Data Vital Signs Vital Signs: Vital Signs Temp Pulse Resp BP Pulse Ox O2 Del Method FiO2 01/27/24 11:00 79 104/56 L 01/27/24 10:45 30 H 97 Mechanical Ventilation 60 01/27/24 10:30 83 112/47 L 01/27/24 10:15 82 84/57 L 01/27/24 10:04 84 104/50 L 01/27/24 10:00 70 90/50 L 01/27/24 09:45 79 95/53 L 01/27/24 09:30 78 100/55 L 01/27/24 09:15 78 107/53 L 01/27/24 09:00 78 113/56 L 01/27/24 08:45 79 125/51 L 01/27/24 08:30 74 122/54 L 01/27/24 09:02 77 30 H 01/27/24 08:53 77 30 H 01/27/24 08:52 76 30 H 01/27/24 08:40 74 97 Mechanical Ventilation 60 01/27/24 08:32 75 29 H 01/27/24 08:15 71 112/49 L 01/27/24 08:05 99.3 F 72 22 H 119/51 L 01/27/24 08:05 60 01/27/24 06:00 72 26 H 01/27/24 06:00 72 26 H 01/27/24 06:00 99.5 F 75 26 H 97 01/27/24 06:00 76 01/27/24 04:58 71 96 Mechanical Ventilation 80 01/27/24 04:00 71 20 01/27/24 02:00 70 16 01/27/24 00:00 67 14 01/27/24 04:00 75 26 H 01/27/24 02:00 70 26 H 01/27/24 00:00 67 26 H 01/27/24 04:00 99.9 F H 75 26 H 120/51 L 96 01/27/24 04:00 80 01/27/24 04:00 75 01/27/24 04:00 71 28 H 96 Mechanical Ventilation 80 01/27/24 02:00 75 01/27/24 00:00 67 01/26/24 22:00 70 01/26/24 20:00 62 01/27/24 02:00 100 F H 71 26 H 108/51 L 95 01/27/24 00:00 99.9 F H 67 26 H 115/53 L 95 01/26/24 22:00 99.8 F H 66 26 H 113/54 L 97 01/26/24 20:00 99.5 F 62 26 H 105/53 L 97 01/27/24 02:23 73 28 H 01/27/24 02:11 71 96 Mechanical Ventilation 80 01/27/24 02:11 71 28 H 01/27/24 00:00 80 01/27/24 00:00 66 26 H 96 Mechanical Ventilation 80 01/26/24 20:00 66 26 H 96 Mechanical Ventilation 80 01/26/24 22:00 70 26 H 01/26/24 22:00 70 26 H 01/26/24 23:09 66 96 Mechanical Ventilation 80 01/26/24 20:00 80 01/26/24 20:30 69 26 H 01/26/24 20:00 79 26 H 01/26/24 20:00 79 26 H 01/26/24 20:20 63 26 H 01/26/24 20:20 63 97 Mechanical Ventilation 80 01/26/24 18:00 80 01/26/24 16:00 60 01/26/24 16:00 82 01/26/24 16:00 71 26 H 96 Mechanical Ventilation 60 01/26/24 18:00 98.0 F 80 18 129/58 L 100 01/26/24 16:00 99.1 F 76 17 105/50 L 98 01/26/24 18:02 77 29 H 01/26/24 18:02 77 29 H 01/26/24 18:02 77 29 H 01/26/24 16:05 76 26 H 01/26/24 16:05 76 26 H 01/26/24 17:00 99 Mechanical Ventilation 80 01/26/24 16:25 99.1 F 76 11 L 125/59 L 99 01/26/24 16:17 81 130/66 01/26/24 16:15 84 114/56 L 01/26/24 16:00 80 105/50 L 01/26/24 15:51 74 95/48 L 01/26/24 15:45 76 82/40 L 01/26/24 15:30 81 125/65 01/26/24 15:15 76 121/53 L 01/26/24 14:00 98.8 F 70 17 133/57 L 97 01/26/24 14:50 78 117/63 01/26/24 14:45 75 114/55 L 01/26/24 14:30 74 121/56 L 01/26/24 14:00 70 01/26/24 14:02 70 32 H 01/26/24 14:01 70 32 H 01/26/24 13:56 70 32 H 01/26/24 14:05 71 30 H 01/26/24 14:02 70 94 Mechanical Ventilation 50 01/26/24 13:55 67 30 H 01/26/24 14:15 72 127/55 L 01/26/24 14:00 70 133/57 L 01/26/24 13:45 67 144/61 H 01/26/24 13:30 68 159/56 H 01/26/24 13:14 71 163/59 H 01/26/24 13:00 50 01/26/24 13:00 98.6 F 73 26 H 160/90 H 96 Intake/Output Intake/Output: Intake & Output 01/24/24 01/25/24 01/26/24 01/27/24 23:59 23:59 23:59 23:59 Intake Total 3180.9 2549.3 2230.0 1105.2 Output Total 1400 1425 2021 1433 Balance 1780.9 1124.3 209.0 -327.8 Meds/Results Medications: Active Medications Generic Name Dose Route Start Last Admin Trade Name Freq PRN Reason Stop Dose Admin Acetaminophen 650 mg 01/20/24 10:08 01/20/24 10:29 Acetaminophen 325 Mg Tablet PO 650 mg Q4H PRN Administration Mild Pain (1-3) or Fever Albuterol/Ipratropium 3 ml 01/22/24 14:00 01/27/24 08:31 Ipratropium 0.5 Mg/Albuterol Sulfate 2.5 Mg Ampul.Neb 3 Ml INHALATION 3 ml Q6HRT EDMOND Administration Aspirin 81 mg 01/19/24 08:00 01/27/24 08:43 Aspirin 81 Mg Chewable Tablet PO 81 mg DAILY@0800 EDMOND Administration Atorvastatin Calcium 40 mg 01/19/24 09:00 01/27/24 08:43 Atorvastatin 40 Mg Tablet PO 40 mg DAILY EDMOND Administration Clopidogrel Bisulfate 75 mg 01/19/24 09:00 01/27/24 09:35 Clopidogrel Bisulfate 75 Mg Tablet PO Not Given DAILY [facility] Dextrose 12.5 gm 01/18/24 23:28 Dextrose 50% 25 Gm/50 Ml Syringe IV PUSH PRN PRN Hypoglycemia Protocol Epoetin Ronnell-epbx 10,000 units 01/27/24 18:07 01/27/24 10:23 Epoetin Ronnell-Epbx 10,000 Units/Ml Vial IV PUSH 01/27/24 18:08 10,000 units ONCE ONE Administration Glucagon 1 mg 01/18/24 23:28 Glucagon For Inj 1 Mg Vial IM PRN PRN Hypoglycemia Protocol Glucose 15 gm 01/18/24 23:28 Glucose Oral Gel 15 Gm Of Glucse In 37.5 Gm Tube PO PRN PRN Hypoglycemia Protocol Heparin Sodium (Porcine) 4,500 units 01/18/24 23:25 01/26/24 17:28 Heparin Sodium 5,000 Units/Ml Vial IV PUSH 4,500 units PRN PRN Administration aPTT less than 55 seconds Heparin Sodium (Porcine) 2,500 units 01/18/24 23:25 01/24/24 06:17 Heparin Sodium 5,000 Units/Ml Vial IV PUSH 2,500 units PRN PRN Administration aPTT 55 - 70 seconds Heparin Sodium/Dextrose 25,000 units in 250 mls @ 0 mls/hr 01/18/24 23:25 01/27/24 04:00 Heparin Sodium/D5w 100 Units/Ml IV CONT 0 units/hr .Q0M EDMOND 0 mls/hr Titration Protocol 0 UNITS/HR Dextrose 1,000 mls @ 100 mls/hr 01/18/24 23:28 Dextrose 5% 1,000 Ml IVPB PRN PRN Hypoglycemia Protocol Fentanyl Citrate 2,500 mcg in 250 mls @ 10 mls/hr 01/21/24 07:40 01/27/24 08:52 Fentanyl 2,500 Mcg/Ns 250 Ml IV CONT 100 mcg/hr .Q25H EDMOND 10 mls/hr Titration Protocol 100 MCG/HR Midazolam HCl 100 mg in 100 mls @ 4 mls/hr 01/21/24 07:40 01/27/24 08:53 Versed 100 Mg/Ns 100 Ml IV CONT 4 mg/hr .Q25H EDMOND 4 mls/hr Titration Protocol 4 MG/HR Norepinephrine Bitartrate 8 mg in 250 mls @ 9.375 mls/hr 01/22/24 08:05 01/25/24 13:13 Levophed 8 Mg/D5w 250 Ml IV CONT Not Given .Q24H EDMOND Protocol 5 MCG/MIN Insulin Human Regular 100 100 mls @ 1 mls/hr 01/23/24 08:15 01/25/24 22:11 units/ Sodium Chloride IV CONT Not Given .Q24H EDMOND Protocol 1 UNITS/HR Albumin Human 50 mls @ 999 mls/hr 01/26/24 11:40 01/27/24 09:51 Albutein IVPB 02/25/24 11:39 999 mls/hr Q10M PRN Administration HYPOTENSION Vancomycin HCl 750 mg in 250 mls @ 250 mls/hr 01/27/24 18:00 Vancomycin 750 Mg/Ns 250 Ml IVPB 01/27/24 18:59 ONCE ONE Insulin Aspart 4 - 8 units 01/19/24 12:00 01/27/24 11:40 Insulin Aspart (*Bkc) 100 Units/Ml SUB-Q Not Given Q4H [facility] Protocol Insulin Glargine 65 units 01/26/24 09:00 01/27/24 09:01 Insulin Glargine (*Bkc) 100 Units/Ml SUB-Q 65 units QAM EDMOND Administration Levothyroxine Sodium 112 mcg 01/19/24 06:30 01/27/24 08:43 Levothyroxine Sodium 112 Mcg Tablet PO 112 mcg DAILY@0630 EDMOND Administration Metoclopramide HCl 10 mg 01/25/24 12:00 01/27/24 11:38 Metoclopramide Hcl 10 Mg/10 Ml Soln Udc FEED TUBE 10 mg Q6HR EDMOND Administration Midazolam HCl 2 mg 01/21/24 07:40 01/23/24 09:38 Midazolam Hcl (*Crx) 2 Mg/2 Ml Vial IV PUSH 2 mg Q5M PRN Administration ventilator asynchrony Midazolam HCl 4 mg 01/21/24 09:35 01/26/24 05:58 Midazolam Hcl (*Crx) 2 Mg/2 Ml Vial IV PUSH 4 mg PRN PRN Administration Sedation Multi-Ingred Cream/Lotion/Oil/Oint 1 applic 01/21/24 09:00 01/27/24 08:45 Mineral Oil/White Petrolatum Ointment EACH EYE 1 applic Q12HR EDMOND Administration Ondansetron HCl 4 mg 01/18/24 22:13 Ondansetron Inj 4 Mg/2 Ml Vial IV PUSH Q4H PRN Nausea Pantoprazole Sodium 40 mg 01/19/24 09:00 01/27/24 08:54 Pantoprazole Sodium Iv 40 Mg Vial IV PUSH 40 mg Q12HR EDMOND Administration Polyethylene Glycol 17 gm 01/24/24 09:00 01/27/24 08:44 Polyethylene Glycol 3350 17 Gm Powd.Pack PO 17 gm QAM EDMOND Administration Vancomycin HCl 1 each 01/26/24 11:43 Vancomycin For Hemodialysis IVPB PRN PRN Vancomycin Protocol Radiology Results: ITS Impressions Chest/Abdomen/Pelvis CTA 01/18/24 18:30 IMPRESSION: Nonocclusive acute subsegmental pulmonary embolus in the left lower lobe. Very small clot burden. No evidence of right heart strain. Left lower lobe pneumonia. Mild hepatomegaly. Possible cystitis. Otherwise, no acute abdominopelvic process detected. Head CT 01/19/24 05:47 Impression: No intracranial hemorrhage, mass, or acute infarct. Atrophy and chronic white matter changes, as above. Venous Doppler Study 01/19/24 15:06 IMPRESSION: Negative bilateral lower extremity venous US. No deep vein thrombosis. Chest/Abdomen/Pelvis CT 01/22/24 12:43 IMPRESSION: Worsening respiratory status with bibasilar consolidation and interstitial thickening with patchy groundglass opacification bilaterally -findings suggesting ARDS. Mural thickening within the rectosigmoid colon with multiple diverticula and prominence of the vasa recta, possibly early diverticulitis. Interval development of perihepatic fluid, compared with previous study. Renal Ultrasound 01/24/24 12:05 IMPRESSION: 1. Normal kidneys without hydronephrosis. Abdomen X-Ray 01/25/24 14:53 IMPRESSION: NG tube in distal stomach Nonspecific abdomen Chest X-Ray 01/27/24 06:02 IMPRESSION: 1. Stable diffuse lung disease, consistent with pneumonia superimposed on emphysema. 2. Stable small left pleural effusion. Labs Labs: Laboratory Tests 01/27/24 03:40 01/27/24 03:40 Calcium 8.0 L Magnesium 2.1 Total Bilirubin 0.6 AST 54 H ALT 21 Alkaline Phosphatase 98 Total Protein 7.0 Albumin 3.5 Random Vancomycin 19.7 Microbiology 01/23/24 21:31 Sputum Sputum Culture - Final Methicillin Resis Staph Aureus
[2024-01-27] MEDS: HEPARIN SODIUM 1,000 UNITS/ML VIAL 3000 UNITS (11:30)
[2024-01-27] MEDS: METOCLOPRAMIDE HCL 10 MG/10 ML SOLN UDC FEED TUBE ×2 (11:38→17:45)
[2024-01-27 11:56] LABS: Glucose Point of Care 169 mg/dl (65-105)
--- NOTE | 2024-01-27 12:06 | WPDINTPN ---
Progress Note: A&P Assessment and Plan (1) Acute respiratory failure: Code(s): J96.00 - Acute respiratory failure, unspecified whether with hypoxia or hypercapnia Status: Acute Assessment and Plan: Acute Respiratory failure secondary to pneumonia and PE. Patient appears to have developed ARDS Patient had became CPAP dependent 100% FiO2. Forty of Lasix given IV last night without any significant improvement. Patient does not have any edema on lower extremity suggestive of heart failure. Echo reviewed. 01/20 patient intubated for discussion with the patient and her daughter. ABG reviewed and low tidal volume ventilation. PEEP set at 12 tidal volume at 300 mL. FiO2 is 100%. Increase respiratory rate to 26 Post intubation patient was coughing and gagging leading to desaturation hence was given rocuronium. Patient was started on Nimbex infusion along with sedation at this time. Patient was placed in prone position 01/21 patient was switched to supine position around 2:00 a.m.. She is a 70% FiO2 and 12 of PEEP 01/22 on 55% FiO2 and 12 of PEEP. ABG reviewed. Decrease respiratory rate to 24. Continue to wean FiO2. CT scan done yesterday showed IMPRESSION: Worsening respiratory status with bibasilar consolidation and interstitial thickening with patchy groundglass opacification bilaterally -findings suggesting ARDS. 01/23 overnight patient had increased oxygen requirement. Yesterday morning neuromuscular yasemin infusion was discontinued but patient later was a synchronous with the ventilator with coughing and gagging. Sedation was increased but did not fix the problem patient desaturated. Nimbex infusion was restarted. This morning she is on 70% FiO2 and Wean FiO2 to 65% this morning 01/24 continues to be on mechanical ventilation and is on 70% FiO2 and 12 of PEEP. I will increase the PEEP to 14. 01/25 Chest x-ray reviewed and does not show any significant change and shows stable diffuse lung disease Continue Low tidal volume ventilation and permissive hypercapnia and permissive respiratory acidosis 01/25: Started dialysis with removal of 1066 mL in fluid removal -remains on CMV mode of ventilation, peep of 14 and 60% FiO2, patient is getting dialyzed again today, will try and wean PEEP to 12 after dialysis if possible -Continue Bronchodilators -chest x-ray and ABGs reviewed Patient started on course of steroids due to severity of pneumonia and ARDS which will be continued Patient has been off of Nimbex infusion for last 24 hours and will continue as tolerated (2) Septic shock: Code(s): A41.9 - Sepsis, unspecified organism; R65.21 - Severe sepsis with septic shock Status: Acute Assessment and Plan: Secondary to pneumonia 01/17: Patient presented with hypotension, elevated lactic acid levels, fevers, cough, hypoxia -received 30 mL/kg IV fluids -started on Levophed via femoral central line - Off IV fluids vasopressors now -01/17: Blood cultures have been obtained and negative till now MRSA screen negative Urine pneumococcal antigen negative Urine Legionella antigen pending Influenza RSV and COVID PCR negative 01/22: Sputum cultures growing MRSA, patient on ceftriaxone, Flagyl, vancomycin. Will discontinue Flagyl and ceftriaxone -continue vancomycin (3) Community acquired pneumonia: Qualifiers: Laterality: left Lung location: lower lobe of lung Qualified Code(s): J18.9 - Pneumonia, unspecified organism Code(s): J18.9 - Pneumonia, unspecified organism Status: Acute Assessment and Plan: See above (4) Diabetes: Code(s): E11.9 - Type 2 diabetes mellitus without complications Status: Acute Assessment and Plan: Uncontrolled Continue Lantus Insulin infusion has been transition to subcutaneous insulin now (5) Acute kidney injury: Code(s): N17.9 - Acute kidney failure, unspecified Status: Acute Assessment and Plan: Patient initially presented with Acute kidney injury likely related to hypotension, septic shock She was adequately fluid-resuscitated and came off of IV fluids Creatinine normalized initially Patient did receive contrast for CTA Creatinine increased post intubation. 01/22 Lasix IV x1 Patient was given 25% albumin and will give 5% albumin. Will avoid liberal fluids due to patient's respiratory status. Patient is positive her I/O balance 01/25: Creatinine continues to increase along with elevated BUN today. Urine output also decreasing. Dr Dunbar discussed with nephrology and family will plan to initiate dialysis. Temporary dialysis catheter placed after obtaining consent from patient's family. Discussed with nephrology. Associate Professor Of History will arrange for dialysis 01/25: Started dialysis with 1066 mL in fluid removal 01/26: Discuss with Nephrology will dialyze again today and on 01/27, for fluid removal (6) Pulmonary embolism: Code(s): I26.99 - Other pulmonary embolism without acute cor pulmonale Status: Acute Assessment and Plan: Continue heparin infusion small PE Venous Dopplers negative 01/26: Heparin infusion has been discontinued since patient's hemoglobin dropped to 7.1 this morning. -will continue to monitor hemoglobin levels, if remains stable, may start Lovenox 1 mg/kg daily starting 01/27 01/17: CT chest abdomen and pelvis IMPRESSION: Nonocclusive acute subsegmental pulmonary embolus in the left lower lobe. Very small clot burden. No evidence of right heart strain. Left lower lobe pneumonia. Mild hepatomegaly. Possible cystitis. Otherwise, no acute abdominopelvic process detected. Echo Summary 1. Left ventricular systolic function is normal, estimated at 55-60%. 2. There is mildly increased left ventricular wall thickness. 3. The left ventricular diastolic function is grade I diastolic dysfunction. 4. There is trace mitral valve regurgitation. 5. There is trace tricuspid valve regurgitation. 6. No pulmonary hypertension, estimated pulmonary arterial systolic pressure is 41 mmHg. 7. Right ventricular systolic function is normal. 8. Right ventricular chamber dimension is normal. (7) Electrolyte abnormality: Code(s): E87.8 - Other disorders of electrolyte and fluid balance, not elsewhere classified Status: Acute Assessment and Plan: Sodium levels have improved -will decrease tube feed flushes (8) Diverticulitis: Code(s): K57.92 - Diverticulitis of intestine, part unspecified, without perforation or abscess without bleeding Status: Acute Assessment and Plan: CT abdomen pelvis showed Mural thickening within the rectosigmoid colon with multiple diverticula and prominence of the vasa recta, possibly early diverticulitis. Interval development of perihepatic fluid, compared with previous study. Will discontinue ceftriaxone and Flagyl (9) Ileus: Code(s): K56.7 - Ileus, unspecified Status: Acute Assessment and Plan: Patient has been having high tube feed residuals, Reglan was started on 01/26/2024. Patient tolerating tube feeds better. Has been having bowel movements -will advance tube feeds to goal (10) Anemia: Code(s): D64.9 - Anemia, unspecified Status: Acute Assessment and Plan: Patient's hemoglobin has gradually trended down over last 4-5 days. She is on heparin infusion for PE. There has been no evidence of bleeding. Continue monitor this time. Transfuse if hemoglobin less than 7. Platelets are at acceptable level. She is also on aspirin Plavix for coronary disease She is on Protonix twice a day 01/26: Hemoglobin dropped to 7.1, will hold heparin infusion. Monitor hemoglobin levels and if the improved restart either heparin infusion or Lovenox 1 mg/kg daily Plan DVT prophylaxis: Heparin infusion has been stopped due to drop in hemoglobin, continue SCDs Stress ulcer prophylaxis: Protonix IV q.12 hours Nutrition:. Continue tube feeds and advance to goal. Code Status: 01/20 Dr Dunbar spoke to patient prior to intubation about cold and goals of care. She stated that she would like 1-2 rounds of resuscitation in case of cardiac arrest to see if she can be brought back but does not want prolonged resuscitation efforts. She also states that if she is unable to come off the ventilator in 2 weeks time she would not want a feeding tube and tracheostomy for long-term mechanical ventilation. Patient's daughter was at bedside and in agreement with patient's wishes 01/22 patient's son updated him patient's current status including changes in the respiratory status, worsening renal function. I answered all questions. 01/25 spoke to and updated patient's daughter at bedside. I answered all her questions Critical Care Time Spent: 37 minutes Due to a high probability of clinically significant, life threatening deterioration, the patient required my highest level of preparedness to intervene emergently and I personally spent this critical care time directly and personally managing the patient. This critical care time included obtaining a history; examining the patient; pulse oximetry; ordering and review of studies; arranging urgent treatment with development of a management plan; evaluation of patient's response to treatment; frequent reassessment; and discussions with other providers. It was exclusive of separately billable procedures and treating other patients and teaching time. Please see Assessment and Plan section and the rest of the note for further information on patient assessment and treatment This dictation may have been done utilizing a voice recognition system. Attempts have been made to correct errors. However, there may be uncorrected grammatical, spelling, and recognitions errors present. Subjective Date/time seen: 01/27/24 12:06 Interval history: 68yo female with HTN, CHF, DM and HLD with PE pneumonia acute respiratory failure ARDS acute kidney injury 01/27/2024: Patient seen and examined the ICU, remains intubated on CMV mode of ventilation, peep of 14 860% FiO2. Sedated with fentanyl and Versed infusion, patient does not open her eyes to name but does not follow simple commands. She does withdraw to pain in all extremities. Heparin infusion was stopped this morning as she dropped her hemoglobin to 7.1. Urine output has been adequate, she did get dialyzed yesterday (01/25) with 1066 mL fluid removal Review of Systems Review of Systems: ROS unobtainable: Yes unobtainable due to endotracheal tube, unobtainable due to medical condition and unobtainable due to mental status Exam Narrative: General: Patient is intubated, sedated in no acute distress HEENT:? Pupils equal and reactive, sclerae sclera, ET tube in place Neck:? Supple Respiratory:? Coarse breath sounds bilaterally no wheezing, adequate air entry Cardiac:? S1-S2 was normal, regular rate and rhythm Abdomen:? Soft, non distended, no tenderness, hypoactive bowel sounds, Extremities:? No edema, palpable pedal pulses Neuro:? Patient is intubated, sedated, opens her eyes to name but does not follow simple commands. Withdraws to pain in all extremities Skin:? Warm and dry Objective Data Vital Signs Vital Signs: Vital Signs - 24 hr 01/26/24 12:08 01/26/24 13:00 01/26/24 13:00 Temperature 98.6 F Pulse Rate 71 73 Respiratory Rate 26 H 26 H Blood Pressure 160/90 H Pulse Oximetry 96 Oxygen Delivery Fraction of Inspired Oxygen 50 01/26/24 13:14 01/26/24 13:30 01/26/24 13:45 Temperature Pulse Rate 71 68 67 Respiratory Rate Blood Pressure 163/59 H 159/56 H 144/61 H Pulse Oximetry Oxygen Delivery Fraction of Inspired Oxygen 01/26/24 14:00 01/26/24 14:15 01/26/24 13:55 Temperature Pulse Rate 70 72 67 Respiratory Rate 30 H Blood Pressure 133/57 L 127/55 L Pulse Oximetry Oxygen Delivery Fraction of Inspired Oxygen 01/26/24 14:02 01/26/24 14:05 01/26/24 13:56 Temperature Pulse Rate 70 71 70 Respiratory Rate 30 H 32 H Blood Pressure Pulse Oximetry 94 Oxygen Delivery Mechanical Ventilation Fraction of Inspired Oxygen 50 01/26/24 14:01 01/26/24 14:02 01/26/24 14:00 Temperature Pulse Rate 70 70 70 Respiratory Rate 32 H 32 H Blood Pressure Pulse Oximetry Oxygen Delivery Fraction of Inspired Oxygen 01/26/24 14:30 01/26/24 14:45 01/26/24 14:50 Temperature Pulse Rate 74 75 78 Respiratory Rate Blood Pressure 121/56 L 114/55 L 117/63 Pulse Oximetry Oxygen Delivery Fraction of Inspired Oxygen 01/26/24 14:00 01/26/24 15:15 01/26/24 15:30 Temperature 98.8 F Pulse Rate 70 76 81 Respiratory Rate 17 Blood Pressure 133/57 L 121/53 L 125/65 Pulse Oximetry 97 Oxygen Delivery Fraction of Inspired Oxygen 01/26/24 15:45 01/26/24 15:51 01/26/24 16:00 Temperature Pulse Rate 76 74 80 Respiratory Rate Blood Pressure 82/40 L 95/48 L 105/50 L Pulse Oximetry Oxygen Delivery Fraction of Inspired Oxygen 01/26/24 16:15 01/26/24 16:17 01/26/24 16:25 Temperature 99.1 F Pulse Rate 84 81 76 Respiratory Rate 11 L Blood Pressure 114/56 L 130/66 125/59 L Pulse Oximetry 99 Oxygen Delivery Fraction of Inspired Oxygen 01/26/24 17:00 01/26/24 16:05 01/26/24 16:05 Temperature Pulse Rate 76 76 Respiratory Rate 26 H 26 H Blood Pressure Pulse Oximetry 99 Oxygen Delivery Mechanical Ventilation Fraction of Inspired Oxygen 80 01/26/24 18:02 01/26/24 18:02 01/26/24 18:02 Temperature Pulse Rate 77 77 77 Respiratory Rate 29 H 29 H 29 H Blood Pressure Pulse Oximetry Oxygen Delivery Fraction of Inspired Oxygen 01/26/24 16:00 01/26/24 18:00 01/26/24 16:00 Temperature 99.1 F 98.0 F Pulse Rate 76 80 71 Respiratory Rate 17 18 26 H Blood Pressure 105/50 L 129/58 L Pulse Oximetry 98 100 96 Oxygen Delivery Mechanical Ventilation Fraction of Inspired Oxygen 60 01/26/24 16:00 01/26/24 16:00 01/26/24 18:00 Temperature Pulse Rate 82 80 Respiratory Rate Blood Pressure Pulse Oximetry Oxygen Delivery Fraction of Inspired Oxygen 60 01/26/24 20:20 01/26/24 20:20 01/26/24 20:00 Temperature Pulse Rate 63 63 79 Respiratory Rate 26 H 26 H Blood Pressure Pulse Oximetry 97 Oxygen Delivery Mechanical Ventilation Fraction of Inspired Oxygen 80 01/26/24 20:00 01/26/24 20:30 01/26/24 20:00 Temperature Pulse Rate 79 69 Respiratory Rate 26 H 26 H Blood Pressure Pulse Oximetry Oxygen Delivery Fraction of Inspired Oxygen 80 01/26/24 23:09 01/26/24 22:00 01/26/24 22:00 Temperature Pulse Rate 66 70 70 Respiratory Rate 26 H 26 H Blood Pressure Pulse Oximetry 96 Oxygen Delivery Mechanical Ventilation Fraction of Inspired Oxygen 80 01/26/24 20:00 01/27/24 00:00 01/27/24 00:00 Temperature Pulse Rate 66 66 Respiratory Rate 26 H 26 H Blood Pressure Pulse Oximetry 96 96 Oxygen Delivery Mechanical Ventilation Mechanical Ventilation Fraction of Inspired Oxygen 80 80 80 01/27/24 02:11 01/27/24 02:11 01/27/24 02:23 Temperature Pulse Rate 71 71 73 Respiratory Rate 28 H 28 H Blood Pressure Pulse Oximetry 96 Oxygen Delivery Mechanical Ventilation Fraction of Inspired Oxygen 80 01/26/24 20:00 01/26/24 22:00 01/27/24 00:00 Temperature 99.5 F 99.8 F H 99.9 F H Pulse Rate 62 66 67 Respiratory Rate 26 H 26 H 26 H Blood Pressure 105/53 L 113/54 L 115/53 L Pulse Oximetry 97 97 95 Oxygen Delivery Fraction of Inspired Oxygen 01/27/24 02:00 01/26/24 20:00 01/26/24 22:00 Temperature 100 F H Pulse Rate 71 62 70 Respiratory Rate 26 H Blood Pressure 108/51 L Pulse Oximetry 95 Oxygen Delivery Fraction of Inspired Oxygen 01/27/24 00:00 01/27/24 02:00 01/27/24 04:00 Temperature Pulse Rate 67 75 71 Respiratory Rate 28 H Blood Pressure Pulse Oximetry 96 Oxygen Delivery Mechanical Ventilation Fraction of Inspired Oxygen 80 01/27/24 04:00 01/27/24 04:00 01/27/24 04:00 Temperature 99.9 F H Pulse Rate 75 75 Respiratory Rate 26 H Blood Pressure 120/51 L Pulse Oximetry 96 Oxygen Delivery Fraction of Inspired Oxygen 80 01/27/24 00:00 01/27/24 02:00 01/27/24 04:00 Temperature Pulse Rate 67 70 75 Respiratory Rate 26 H 26 H 26 H Blood Pressure Pulse Oximetry Oxygen Delivery Fraction of Inspired Oxygen 01/27/24 00:00 01/27/24 02:00 01/27/24 04:00 Temperature Pulse Rate 67 70 71 Respiratory Rate 14 16 20 Blood Pressure Pulse Oximetry Oxygen Delivery Fraction of Inspired Oxygen 01/27/24 04:58 01/27/24 06:00 01/27/24 06:00 Temperature 99.5 F Pulse Rate 71 76 75 Respiratory Rate 26 H Blood Pressure Pulse Oximetry 96 97 Oxygen Delivery Mechanical Ventilation Fraction of Inspired Oxygen 80 01/27/24 06:00 01/27/24 06:00 01/27/24 08:05 Temperature Pulse Rate 72 72 Respiratory Rate 26 H 26 H Blood Pressure Pulse Oximetry Oxygen Delivery Fraction of Inspired Oxygen 60 01/27/24 08:05 01/27/24 08:15 01/27/24 08:32 Temperature 99.3 F Pulse Rate 72 71 75 Respiratory Rate 22 H 29 H Blood Pressure 119/51 L 112/49 L Pulse Oximetry Oxygen Delivery Fraction of Inspired Oxygen 01/27/24 08:40 01/27/24 08:52 01/27/24 08:53 Temperature Pulse Rate 74 76 77 Respiratory Rate 30 H 30 H Blood Pressure Pulse Oximetry 97 Oxygen Delivery Mechanical Ventilation Fraction of Inspired Oxygen 60 01/27/24 09:02 01/27/24 08:30 01/27/24 08:45 Temperature Pulse Rate 77 74 79 Respiratory Rate 30 H Blood Pressure 122/54 L 125/51 L Pulse Oximetry Oxygen Delivery Fraction of Inspired Oxygen 01/27/24 09:00 01/27/24 09:15 01/27/24 09:30 Temperature Pulse Rate 78 78 78 Respiratory Rate Blood Pressure 113/56 L 107/53 L 100/55 L Pulse Oximetry Oxygen Delivery Fraction of Inspired Oxygen 01/27/24 09:45 01/27/24 10:00 01/27/24 10:04 Temperature Pulse Rate 79 70 84 Respiratory Rate Blood Pressure 95/53 L 90/50 L 104/50 L Pulse Oximetry Oxygen Delivery Fraction of Inspired Oxygen 01/27/24 10:15 01/27/24 10:30 01/27/24 08:00 Temperature Pulse Rate 82 83 Respiratory Rate 30 H Blood Pressure 84/57 L 112/47 L Pulse Oximetry 97 Oxygen Delivery Mechanical Ventilation Fraction of Inspired Oxygen 60 01/27/24 08:00 01/27/24 10:00 01/27/24 10:00 Temperature Pulse Rate 72 78 78 Respiratory Rate Blood Pressure Pulse Oximetry Oxygen Delivery Fraction of Inspired Oxygen 01/27/24 10:46 01/27/24 08:00 01/27/24 10:45 Temperature Pulse Rate 83 81 Respiratory Rate Blood Pressure 110/50 L Pulse Oximetry 95 Oxygen Delivery Mechanical Ventilation Fraction of Inspired Oxygen 60 60 01/27/24 11:00 01/27/24 11:15 01/27/24 11:29 Temperature 99.5 F Pulse Rate 79 79 80 Respiratory Rate 14 Blood Pressure 104/56 L 106/52 L 99/45 L Pulse Oximetry Oxygen Delivery Fraction of Inspired Oxygen 01/27/24 11:23 Temperature Pulse Rate 79 Respiratory Rate Blood Pressure 102/53 L Pulse Oximetry Oxygen Delivery Fraction of Inspired Oxygen Intake/Output Intake/Output: Intake & Output 01/24/24 01/25/24 01/26/24 01/27/24 23:59 23:59 23:59 23:59 Intake Total 3180.9 2549.3 2230.0 1105.2 Output Total 1400 1425 2021 1433 Balance 1780.9 1124.3 209.0 -327.8 Meds/Results Medications: Active Medications Generic Name Dose Route Start Last Admin Trade Name Freq PRN Reason Stop Dose Admin Acetaminophen 650 mg 01/20/24 10:08 01/20/24 10:29 Acetaminophen 325 Mg Tablet PO 650 mg Q4H PRN Administration Mild Pain (1-3) or Fever Albuterol/Ipratropium 3 ml 01/22/24 14:00 01/27/24 08:31 Ipratropium 0.5 Mg/Albuterol Sulfate 2.5 Mg Ampul.Neb 3 Ml INHALATION 3 ml Q6HRT EDMOND Administration Aspirin 81 mg 01/19/24 08:00 01/27/24 08:43 Aspirin 81 Mg Chewable Tablet PO 81 mg DAILY@0800 EDMOND Administration Atorvastatin Calcium 40 mg 01/19/24 09:00 01/27/24 08:43 Atorvastatin 40 Mg Tablet PO 40 mg DAILY EDMOND Administration Clopidogrel Bisulfate 75 mg 01/19/24 09:00 01/27/24 09:35 Clopidogrel Bisulfate 75 Mg Tablet PO Not Given DAILY EDMOND Dextrose 12.5 gm 01/18/24 23:28 Dextrose 50% 25 Gm/50 Ml Syringe IV PUSH PRN PRN Hypoglycemia Protocol Epoetin Ronnell-epbx 10,000 units 01/27/24 18:07 01/27/24 10:23 Epoetin Ronnell-Epbx 10,000 Units/Ml Vial IV PUSH 01/27/24 18:08 10,000 units ONCE ONE Administration Glucagon 1 mg 01/18/24 23:28 Glucagon For Inj 1 Mg Vial IM PRN PRN Hypoglycemia Protocol Glucose 15 gm 01/18/24 23:28 Glucose Oral Gel 15 Gm Of Glucse In 37.5 Gm Tube PO PRN PRN Hypoglycemia Protocol Heparin Sodium (Porcine) 4,500 units 01/18/24 23:25 01/26/24 17:28 Heparin Sodium 5,000 Units/Ml Vial IV PUSH 4,500 units PRN PRN Administration aPTT less than 55 seconds Heparin Sodium (Porcine) 2,500 units 01/18/24 23:25 01/24/24 06:17 Heparin Sodium 5,000 Units/Ml Vial IV PUSH 2,500 units PRN PRN Administration aPTT 55 - 70 seconds Heparin Sodium/Dextrose 25,000 units in 250 mls @ 0 mls/hr 01/18/24 23:25 01/27/24 04:00 Heparin Sodium/D5w 100 Units/Ml IV CONT 0 units/hr .Q0M EDMOND 0 mls/hr Titration Protocol 0 UNITS/HR Dextrose 1,000 mls @ 100 mls/hr 01/18/24 23:28 Dextrose 5% 1,000 Ml IVPB PRN PRN Hypoglycemia Protocol Fentanyl Citrate 2,500 mcg in 250 mls @ 10 mls/hr 01/21/24 07:40 01/27/24 08:52 Fentanyl 2,500 Mcg/Ns 250 Ml IV CONT 100 mcg/hr .Q25H EDMOND 10 mls/hr Titration Protocol 100 MCG/HR Midazolam HCl 100 mg in 100 mls @ 4 mls/hr 01/21/24 07:40 01/27/24 08:53 Versed 100 Mg/Ns 100 Ml IV CONT 4 mg/hr .Q25H EDMOND 4 mls/hr Titration Protocol 4 MG/HR Norepinephrine Bitartrate 8 mg in 250 mls @ 9.375 mls/hr 01/22/24 08:05 01/25/24 13:13 Levophed 8 Mg/D5w 250 Ml IV CONT Not Given .Q24H EDMOND Protocol 5 MCG/MIN Insulin Human Regular 100 100 mls @ 1 mls/hr 01/23/24 08:15 01/25/24 22:11 units/ Sodium Chloride IV CONT Not Given .Q24H EDMOND Protocol 1 UNITS/HR Albumin Human 50 mls @ 999 mls/hr 01/26/24 11:40 01/27/24 09:51 Albutein IVPB 02/25/24 11:39 999 mls/hr Q10M PRN Administration HYPOTENSION Vancomycin HCl 750 mg in 250 mls @ 250 mls/hr 01/27/24 18:00 Vancomycin 750 Mg/Ns 250 Ml IVPB 01/27/24 18:59 ONCE ONE Insulin Aspart 4 - 8 units 01/19/24 12:00 01/27/24 11:40 Insulin Aspart (*Bkc) 100 Units/Ml SUB-Q Not Given Q4H [facility] Protocol Insulin Glargine 65 units 01/26/24 09:00 01/27/24 09:01 Insulin Glargine (*Bkc) 100 Units/Ml SUB-Q 65 units QAM EDMOND Administration Levothyroxine Sodium 112 mcg 01/19/24 06:30 01/27/24 08:43 Levothyroxine Sodium 112 Mcg Tablet PO 112 mcg DAILY@0630 EDMOND Administration Metoclopramide HCl 10 mg 01/25/24 12:00 01/27/24 11:38 Metoclopramide Hcl 10 Mg/10 Ml Soln Udc FEED TUBE 10 mg Q6HR EDMOND Administration Midazolam HCl 2 mg 01/21/24 07:40 01/23/24 09:38 Midazolam Hcl (*Crx) 2 Mg/2 Ml Vial IV PUSH 2 mg Q5M PRN Administration ventilator asynchrony Midazolam HCl 4 mg 01/21/24 09:35 01/26/24 05:58 Midazolam Hcl (*Crx) 2 Mg/2 Ml Vial IV PUSH 4 mg PRN PRN Administration Sedation Multi-Ingred Cream/Lotion/Oil/Oint 1 applic 01/21/24 09:00 01/27/24 08:45 Mineral Oil/White Petrolatum Ointment EACH EYE 1 applic Q12HR EDMOND Administration Ondansetron HCl 4 mg 01/18/24 22:13 Ondansetron Inj 4 Mg/2 Ml Vial IV PUSH Q4H PRN Nausea Pantoprazole Sodium 40 mg 01/19/24 09:00 01/27/24 08:54 Pantoprazole Sodium Iv 40 Mg Vial IV PUSH 40 mg Q12HR EDMOND Administration Polyethylene Glycol 17 gm 01/24/24 09:00 01/27/24 08:44 Polyethylene Glycol 3350 17 Gm Powd.Pack PO 17 gm QAM EDMOND Administration Vancomycin HCl 1 each 01/26/24 11:43 Vancomycin For Hemodialysis IVPB PRN PRN Vancomycin Protocol Radiology Results: ITS Impressions Chest/Abdomen/Pelvis CTA 01/18/24 18:30 IMPRESSION: Nonocclusive acute subsegmental pulmonary embolus in the left lower lobe. Very small clot burden. No evidence of right heart strain. Left lower lobe pneumonia. Mild hepatomegaly. Possible cystitis. Otherwise, no acute abdominopelvic process detected. Head CT 01/19/24 05:47 Impression: No intracranial hemorrhage, mass, or acute infarct. Atrophy and chronic white matter changes, as above. Venous Doppler Study 01/19/24 15:06 IMPRESSION: Negative bilateral lower extremity venous US. No deep vein thrombosis. Chest/Abdomen/Pelvis CT 01/22/24 12:43 IMPRESSION: Worsening respiratory status with bibasilar consolidation and interstitial thickening with patchy groundglass opacification bilaterally -findings suggesting ARDS. Mural thickening within the rectosigmoid colon with multiple diverticula and prominence of the vasa recta, possibly early diverticulitis. Interval development of perihepatic fluid, compared with previous study. Renal Ultrasound 01/24/24 12:05 IMPRESSION: 1. Normal kidneys without hydronephrosis. Abdomen X-Ray 01/25/24 14:53 IMPRESSION: NG tube in distal stomach Nonspecific abdomen Chest X-Ray 01/27/24 06:02 IMPRESSION: 1. Stable diffuse lung disease, consistent with pneumonia superimposed on emphysema. 2. Stable small left pleural effusion. Labs Labs: Laboratory Results - last 24 hr 01/26/24 01/26/24 01/26/24 00:16 12:01 16:10 WBC RBC Hgb Hct MCV MCH MCHC RDW Plt Count MPV APTT 168.2 H* Puncture Site ABG pH ABG pCO2 ABG pO2 ABG PO2/FiO2 Ratio ABG HCO3 ABG O2 Saturation ABG O2 Content ABG Base Excess A-a Gradient Oxyhemoglobin Carboxyhemoglobin Methemoglobin Reduced Hemoglobin Total Hemoglobin O2 Delivery Device O2 Liters/Min Minute Volume Vent Rate Vent Mode FiO2 Tidal Volume PEEP Peak Inspir Pressure Pressure Support Sodium Potassium Chloride Carbon Dioxide Anion Gap BUN Creatinine Estim Creat Clear Calc Estimated GFR Glucose POC Capillary Glucose 183 H 135 H Calcium Magnesium Total Bilirubin AST ALT Alkaline Phosphatase Total Protein Albumin Random Vancomycin 01/26/24 01/26/24 01/26/24 16:11 20:14 23:34 WBC RBC Hgb Hct MCV MCH MCHC RDW Plt Count MPV APTT 49.0 H Puncture Site ABG pH ABG pCO2 ABG pO2 ABG PO2/FiO2 Ratio ABG HCO3 ABG O2 Saturation ABG O2 Content ABG Base Excess A-a Gradient Oxyhemoglobin Carboxyhemoglobin Methemoglobin Reduced Hemoglobin Total Hemoglobin O2 Delivery Device O2 Liters/Min Minute Volume Vent Rate Vent Mode FiO2 Tidal Volume PEEP Peak Inspir Pressure Pressure Support Sodium Potassium Chloride Carbon Dioxide Anion Gap BUN Creatinine Estim Creat Clear Calc Estimated GFR Glucose POC Capillary Glucose 140 H 160 H Calcium Magnesium Total Bilirubin AST ALT Alkaline Phosphatase Total Protein Albumin Random Vancomycin 01/27/24 01/27/24 01/27/24 03:40 04:47 06:44 WBC 21.4 H RBC 2.25 L Hgb 7.1 L Hct 22.3 L MCV 99.1 MCH 31.6 MCHC 31.8 L RDW 15.6 H Plt Count 245 MPV 11.6 H APTT Puncture Site Right radial ABG pH 7.353 ABG pCO2 39.2 ABG pO2 85.9 ABG PO2/FiO2 Ratio 1.43 ABG HCO3 21.3 L ABG O2 Saturation 96.1 ABG O2 Content 10.3 L ABG Base Excess -3.9 A-a Gradient 298.8 Oxyhemoglobin 94.7 Carboxyhemoglobin 0.8 Methemoglobin 0.2 Reduced Hemoglobin 4.3 Total Hemoglobin 7.6 L* O2 Delivery Device Ventilator O2 Liters/Min Not Reportable Minute Volume Not Reportable Vent Rate 26 Vent Mode Cmv FiO2 60 Tidal Volume 360 PEEP 14 Peak Inspir Pressure Not Reportable Pressure Support Not Reportable Sodium 139 Potassium 3.6 Chloride 106 Carbon Dioxide 24 Anion Gap 9 BUN 76 H D Creatinine 2.00 H Estim Creat Clear Calc 22 Estimated GFR 25 L Glucose 229 H POC Capillary Glucose 189 H Calcium 8.0 L Magnesium 2.1 Total Bilirubin 0.6 AST 54 H ALT 21 Alkaline Phosphatase 98 Total Protein 7.0 Albumin 3.5 Random Vancomycin 19.7 01/27/24 01/27/24 01/27/24 08:42 08:46 11:39 WBC RBC Hgb Hct MCV MCH MCHC RDW Plt Count MPV APTT 33.2 Puncture Site ABG pH ABG pCO2 ABG pO2 ABG PO2/FiO2 Ratio ABG HCO3 ABG O2 Saturation ABG O2 Content ABG Base Excess A-a Gradient Oxyhemoglobin Carboxyhemoglobin Methemoglobin Reduced Hemoglobin Total Hemoglobin O2 Delivery Device O2 Liters/Min Minute Volume Vent Rate Vent Mode FiO2 Tidal Volume PEEP Peak Inspir Pressure Pressure Support Sodium Potassium Chloride Carbon Dioxide Anion Gap BUN Creatinine Estim Creat Clear Calc Estimated GFR Glucose POC Capillary Glucose 196 H 169 H Calcium Magnesium Total Bilirubin AST ALT Alkaline Phosphatase Total Protein Albumin Random Vancomycin Quality VTE Prophylaxis VTE prophylaxis: pharmacologic ordered (Heparin GGT per protocol)
[2024-01-27] MEDS: FENTANYL 2,500MCG/NS250ML(*CRX 2,500 MCG/250 ML BAG 10 MCG IV CONT (15:25)
[2024-01-27] MEDS: INSULIN ASPART (*BKC) 100 UNITS/ML SUB-Q ×2 (15:53→21:12)
[2024-01-27] MEDS: VANCOMYCIN 750 MG/NS 250 ML 750 MG/250 ML BAG 250 MG IVPB (17:45)
[2024-01-27 17:55] LABS: Glucose Point of Care 212 mg/dl (65-105)
[2024-01-27] MEDS: MIDAZOLAM 100MG/NS 100ML(*CRX) 100 MG/100 ML BAG IV CONT (21:11)
[2024-01-27 22:17] LABS: Glucose Point of Care 217 mg/dl (65-105)
[2024-01-28] VITALS (48 sets, daily range): BP systolic 108–157; BP diastolic 42–56; PULSE 64–82; RESP 21–26; TEMP 0–38.5; O2SAT 92–100
[2024-01-28 00:31] LABS: Glucose Point of Care 198 mg/dl (65-105)
[2024-01-28] MEDS: IPRATROPIUM 0.5 MG/ALBUTEROL SULFATE 2.5 MG AMPUL.NEB 3 ML INHALATION ×4 (03:13→20:08)
[2024-01-28] MEDS: INSULIN ASPART (*BKC) 100 UNITS/ML SUB-Q ×4 (05:33→20:20)
[2024-01-28 05:56] LABS: Glucose Point of Care 231 mg/dl (65-105)
[2024-01-28 05:59] LABS: Alveolar/Arterial O2 Gradient 300.3 mmHg; Base Excess ABG -0.3 mEq/l (+/-2.0); Carboxyhemoglobin 1.5 % THb (0-2.0); Fractional Inspired Oxygen 60 %; HCO3 ABG 24.9 mEq/l (22.0-26.0); Methemoglobin ABG 0.3 %THb (0-1.5); Oxygen Content ABG 9.6 %vol (16.0-22.0); Oxygen Saturation ABG 95.6 % (95.0-100.0); Oxyhemoglobin 93.7 % THb (90.0-100.0); PCO2 ABG 43.1 mmHg (35.0-45.0); PO2 ABG 80.1 mmHg (80.0-100.0); PO2 FiO2 Ratio Arterial Blood 1.33 %; Reduced Hemoglobin 4.5 %THb (0-5.0); pH ABG 7.379 (7.350-7.450)
[2024-01-28 06:00] LABS: Basophils Percent Auto 0.2 % (0.2-1.2); Eosinophils Absolute Auto 0.2 K/mm3 (0-0.3); Eosinophils Percent Auto 1.2 % (0-4.4); Immature Granulocyte Absolute 1.82 K/mm3 (0.00-0.031); Immature Granulocyte Percent A 9.5 % (0-0.5); Lymphocytes Absolute Auto 2.62 K/mm3 (0.9-3.2); Lymphocytes Percent Auto 13.6 % (18.3-44.2); Mean Corpuscular HGB Conc 31.8 g/dl (32-36); Mean Corpuscular Volume 100.5 fl (80-100); Mean Platelet Volume 11.9 fl (7.4-10.4); Monocytes Absolute Auto 0.5 K/mm3 (0.1-0.6); Monocytes Percent Auto 2.6 % (2.6-8.5); Neutrophils Percent Auto 72.9 % (45.5-73.1); Nucleated Red Blood Cells Perc 0.4 % (0.0-0.2); Platelet Count Result 240 k/mm3 (150-375); Red Blood Count 2.19 M/mm3 (4.2-5.4); Red Cell Distribution Width 15.6 % (11.5-14.5); White Blood Count 19.2 K/mm3 (4.5-10.0)
[2024-01-28 06:01] LABS: Arterial Blood Gas Ventilator rate 26 /MIN; Device VENTILATOR; Modified Allen's Test Pass; Site Drawn RIGHT RADIAL; Total Hemoglobin 7.2 g/dL (12.0-18.0)
[2024-01-28 06:02] LABS: Arterial Blood Gas PEEP 12 cmH2O; Arterial Blood Gas Tidal Volume 360 ml; Arterial Blood Gas Vent Mode CMV
[2024-01-28 06:19] LABS: Alanine Aminotransferase 21 U/L (6-35); Albumin Level 3.5 g/dL (3.5-5.1); Alkaline Phosphatase 99 U/L (38-126); Anion Gap 7 mmol/L (4-12); Aspartate Amino Transferase 38 U/L (14-36); Bilirubin,Total 0.8 mg/dL (0.2-1.3); Blood Urea Nitrogen 55 mg/dL (7-17); Calcium 7.8 mg/dL (8.4-10.2); Carbon Dioxide 30 mmol/L (22-30); Chloride 102 mmol/L (98-107); Estimated CRCL calculation 30 ml/min; Estimated Glomerular Filt Rate 34; Glucose 204 mg/dL (65-110); Phosphorus 4.8 mg/dL (2.5-4.5); Potassium 3.6 mmol/L (3.4-5.0); Sodium 139 mmol/L (137-145)
[2024-01-28] MEDS: LEVOTHYROXINE SODIUM 112 MCG TABLET PO (06:42)
[2024-01-28 07:06] LABS: Vancomycin Random 15.9 ug/mL (10-20)
[2024-01-28 07:08] LABS: Atypical Lymphocytes Present; Platelet Estimate Adequate (Adequate); Schistocytes None Seen
[2024-01-28] MEDS: INSULIN GLARGINE (*BKC) 100 UNITS/ML 65 UNITS SUB-Q (08:08)
[2024-01-28] MEDS: ATORVASTATIN 40 MG TABLET PO (08:10)
[2024-01-28] MEDS: CLOPIDOGREL BISULFATE 75 MG TABLET PO (08:10)
[2024-01-28] MEDS: ASPIRIN 81 MG CHEWABLE TABLET PO (08:10)
[2024-01-28] MEDS: MINERAL OIL/WHITE PETROLATUM OINTMENT 1 APPLIC EACH EYE ×2 (08:11→20:21)
[2024-01-28] MEDS: PANTOPRAZOLE SODIUM IV 40 MG VIAL IV PUSH ×2 (08:11→20:21)
[2024-01-28] MEDS: polyethylene glycoL 3350 17 GM POWD.PACK PO (08:11)
[2024-01-28 08:17] LABS: Glucose Point of Care 213 mg/dl (65-105)
[2024-01-28] MEDS: EPOETIN ALFA-EPBX 10,000 UNITS/ML VIAL 10000 UNITS IV PUSH (09:39)
[2024-01-28] MEDS: HEPARIN SODIUM 1,000 UNITS/ML VIAL 5000 UNITS (09:40)
--- NOTE | 2024-01-28 11:15 | P.PNNP_ITS ---
Progress Note: A&P Assessment and Plan (1) Acute kidney injury: Code(s): N17.9 - Acute kidney failure, unspecified Status: Acute Assessment and Plan: * initial improvement on admission (from 1.5mg/dl to 0.9mg/dl) * then worsening again noted on 01/21 (up to 1.3mg/dl and subsequently 2.3mg/dl on 01/22) * suspect multifactorial etiology: * contrast exposure * infection/sepsis * hemodynamic instability/shock * possible prerenal factors * diuretic use prior to admission * hypoxia * other(?) * evaluation to date noted: * CPK mildly elevated * UA with blood/protein and possible infection * urine electrolytes prerenal * moderate proteinuria * renal ultrasound w/o obstruction * reasonable urine output noted * giving worsening BUN, initiated on dialysis on 01/25 * HD on 01/26 * DUF today for further fluid removal * follow trend of repeat labs and UOP for possible renal recovery (2) Acute respiratory failure: Code(s): J96.00 - Acute respiratory failure, unspecified whether with hypoxia or hypercapnia Status: Acute Assessment and Plan: * thought to be secondary to a combination of pneumonia and pulmonary embolus +/- pulmonary edema * appears to have progressed to ARDS * intubated and placed on mechanical ventilation on 01/20 * recent CT of chest noted * requiring paralytics with sedation at this time * on bronchodilator therapy and antibiotics * fluid removal with dialysis as tolerated * ventilator weaning when able (3) Septic shock: Code(s): A41.9 - Sepsis, unspecified organism; R65.21 - Severe sepsis with septic shock Status: Acute Assessment and Plan: * as noted on admission - hypotension, lactic acidosis, fevers, and hypoxia/respiratory failure * presumed source = pneumonia +/- diverticulitiis * s/p IVF resuscitation and on vasopressor support (weaned off currently) * follow culture data * on antibiotic therapy (4) Community acquired pneumonia: Qualifiers: Laterality: left Lung location: lower lobe of lung Qualified Code(s): J18.9 - Pneumonia, unspecified organism Code(s): J18.9 - Pneumonia, unspecified organism Status: Acute Assessment and Plan: * based on evidence to date * viral swab for RSV/COVID/influenza negative * follow culture data * on antibiotics (5) Pulmonary embolism: Code(s): I26.99 - Other pulmonary embolism without acute cor pulmonale Status: Acute Assessment and Plan: * admission CTA of chest with nonocclusive acute subsegmental PE in the left lower lobe with very small clot burden * venous dopplers negative * anticoagulation on hold due low H/H (6) Diverticulitis: Code(s): K57.92 - Diverticulitis of intestine, part unspecified, without perforation or abscess without bleeding Status: Acute Assessment and Plan: * CT abdomen pelvis with mural thickening within the rectosigmoid colon with multiple diverticula and prominence of the vasa recta, possibly early diverticulitis. Interval development of perihepatic fluid, compared with previous study * follow culturs * remains on antibiotics (7) Anemia: Code(s): D64.9 - Anemia, unspecified Status: Acute Assessment and Plan: * presumably due to YESI and acute illness * noted drop in H/H at this time * no evidence of GI loss * PRBC transfusion per protocol * 1 unit transfusion with DUF today (01/27) * follow trend of H/H (8) Diabetes: Code(s): E11.9 - Type 2 diabetes mellitus without complications Status: Acute Assessment and Plan: * follow accu-cheks * glycemic control per domestic technician/hospitalist Will continue to follow. Subjective Date/time seen: 01/28/24 11:15 Interval history: Follow-up for acute kidney injury/acute renal failure. Tolerated dialysis treatment yesterday but fluid removal was limited; tolerating dry ultrafiltration at the time of my visit with better fluid removal noted (seen on DUF at 11:05AM); still making reasonable urine output; remains intubated/sedated and on mechanical ventilation; stable hemodynamics noted when seen; remains off heparin gtt due to low H/H. Exam Narrative: General: elderly but WD/WN female intubated/sedated and on mechanical ventilation Heart: normal S1 and S2; no rub Lungs: coarse breath sounds throughout Abdomen: soft, nontender, nondistended, positive bowel sounds Extremities: no cyanosis or clubbing; no edema Skin: no nodules Objective Data Vital Signs Vital Signs: Vital Signs Temp Pulse Resp BP Pulse Ox O2 Del Method FiO2 01/28/24 11:15 70 117/56 L 01/28/24 11:00 99.2 F 75 26 H 112/51 L 94 01/28/24 10:45 70 97 Mechanical Ventilation 50 01/28/24 10:00 72 110/53 L 01/28/24 09:45 71 114/54 L 01/28/24 10:45 70 118/55 L 01/28/24 10:30 75 108/48 L 01/28/24 10:15 72 119/54 L 01/28/24 09:30 72 108/51 L 01/28/24 09:53 99.3 F 73 26 H 114/54 L 97 01/28/24 09:15 73 118/50 L 01/28/24 09:00 75 134/44 L 01/28/24 08:45 72 119/49 L 01/28/24 08:30 75 129/42 L 01/28/24 08:17 64 118/56 L 01/28/24 08:00 99.5 F 65 23 H 113/51 L 92 01/28/24 08:00 50 01/28/24 08:28 79 26 H 01/28/24 08:15 82 92 Mechanical Ventilation 50 01/28/24 08:15 65 26 H 01/28/24 06:00 67 26 H 01/28/24 06:00 67 26 H 01/28/24 06:00 99.2 F 69 26 H 113/51 L 99 01/28/24 06:00 67 01/28/24 04:00 71 26 H 97 Mechanical Ventilation 60 01/28/24 04:00 60 01/28/24 04:00 100 F H 72 26 H 116/50 L 99 01/28/24 04:00 72 01/28/24 02:00 100 F H 75 26 H 111/47 L 99 01/28/24 02:00 75 01/28/24 00:00 100.4 F H 73 26 H 116/51 L 99 01/28/24 00:00 73 01/28/24 00:00 71 26 H 97 Mechanical Ventilation 60 01/28/24 04:00 72 26 H 01/28/24 02:00 75 26 H 01/28/24 00:00 73 26 H 01/28/24 04:00 72 26 H 01/28/24 02:00 75 26 H 01/28/24 00:00 73 26 H 01/28/24 05:17 71 97 Mechanical Ventilation 60 01/28/24 03:14 68 24 H 01/28/24 02:40 67 99 Mechanical Ventilation 60 01/28/24 00:00 60 01/27/24 23:36 76 99 Mechanical Ventilation 60 01/27/24 22:29 75 26 H 01/27/24 22:00 77 26 H 01/27/24 22:00 100.3 F H 77 26 H 122/48 L 99 01/27/24 22:00 78 01/27/24 20:36 77 25 H 01/27/24 20:29 78 26 H 01/27/24 20:23 78 98 Mechanical Ventilation 60 01/27/24 21:11 75 26 H 01/27/24 20:00 75 26 H 01/27/24 20:00 75 26 H 01/27/24 20:00 100.4 F H 75 26 H 131/55 L 98 01/27/24 20:00 75 01/27/24 20:00 78 26 H 98 Mechanical Ventilation 60 01/27/24 20:00 60 01/27/24 18:00 75 26 H 01/27/24 18:00 82 24 H 01/27/24 18:00 78 26 H 106/50 L 98 01/27/24 18:00 73 01/27/24 16:55 74 98 Mechanical Ventilation 60 Intake/Output Intake/Output: Intake & Output 01/25/24 01/26/24 01/27/24 01/28/24 23:59 23:59 23:59 23:59 Intake Total 2549.3 2230.0 2010.5 1189.1 Output Total 1425 2021 2083 3725 Balance 1124.3 209.0 -72.5 -2535.9 Meds/Results Medications: Active Medications Generic Name Dose Route Start Last Admin Trade Name Freq PRN Reason Stop Dose Admin Acetaminophen 650 mg 01/20/24 10:08 01/20/24 10:29 Acetaminophen 325 Mg Tablet PO 650 mg Q4H PRN Administration Mild Pain (1-3) or Fever Acetylcysteine 200 mg 01/28/24 14:00 01/28/24 13:39 Acetylcysteine 20% Inhal Soln 800 Mg/4 Ml Vial INHALATION 200 mg Q6HRT EDMOND Administration Albuterol/Ipratropium 3 ml 01/22/24 14:00 01/28/24 13:39 Ipratropium 0.5 Mg/Albuterol Sulfate 2.5 Mg Ampul.Neb 3 Ml INHALATION 3 ml Q6HRT EDMOND Administration Aspirin 81 mg 01/19/24 08:00 01/28/24 08:10 Aspirin 81 Mg Chewable Tablet PO 81 mg DAILY@0800 EDMOND Administration Atorvastatin Calcium 40 mg 01/19/24 09:00 01/28/24 08:10 Atorvastatin 40 Mg Tablet PO 40 mg DAILY EDMOND Administration Clopidogrel Bisulfate 75 mg 01/19/24 09:00 01/28/24 08:10 Clopidogrel Bisulfate 75 Mg Tablet PO 75 mg DAILY EDMOND Administration Dextrose 12.5 gm 01/18/24 23:28 Dextrose 50% 25 Gm/50 Ml Syringe IV PUSH PRN PRN Hypoglycemia Protocol Epoetin Ronnell-epbx 10,000 units 01/28/24 20:12 01/28/24 09:39 Epoetin Ronnell-Epbx 10,000 Units/Ml Vial IV PUSH 01/28/24 20:13 10,000 units ONCE ONE Administration Glucagon 1 mg 01/18/24 23:28 Glucagon For Inj 1 Mg Vial IM PRN PRN Hypoglycemia Protocol Glucose 15 gm 01/18/24 23:28 Glucose Oral Gel 15 Gm Of Glucse In 37.5 Gm Tube PO PRN PRN Hypoglycemia Protocol Heparin Sodium (Porcine) 4,500 units 01/18/24 23:25 01/26/24 17:28 Heparin Sodium 5,000 Units/Ml Vial IV PUSH 4,500 units PRN PRN Administration aPTT less than 55 seconds Heparin Sodium (Porcine) 2,500 units 01/18/24 23:25 01/24/24 06:17 Heparin Sodium 5,000 Units/Ml Vial IV PUSH 2,500 units PRN PRN Administration aPTT 55 - 70 seconds Heparin Sodium/Dextrose 25,000 units in 250 mls @ 0 mls/hr 01/18/24 23:25 01/27/24 14:00 Heparin Sodium/D5w 100 Units/Ml IV CONT Infused .Q0M EDMOND Titration Protocol 0 UNITS/HR Dextrose 1,000 mls @ 100 mls/hr 01/18/24 23:28 Dextrose 5% 1,000 Ml IVPB PRN PRN Hypoglycemia Protocol Fentanyl Citrate 2,500 mcg in 250 mls @ 10 mls/hr 01/21/24 07:40 01/28/24 06:00 Fentanyl 2,500 Mcg/Ns 250 Ml IV CONT 100 mcg/hr .Q25H EDMOND 10 mls/hr Titration Protocol 100 MCG/HR Midazolam HCl 100 mg in 100 mls @ 4 mls/hr 01/21/24 07:40 01/28/24 06:00 Versed 100 Mg/Ns 100 Ml IV CONT 4 mg/hr .Q25H EDMOND 4 mls/hr Titration Protocol 4 MG/HR Norepinephrine Bitartrate 8 mg in 250 mls @ 9.375 mls/hr 01/22/24 08:05 01/25/24 13:13 Levophed 8 Mg/D5w 250 Ml IV CONT Not Given .Q24H EDMOND Protocol 5 MCG/MIN Insulin Human Regular 100 100 mls @ 1 mls/hr 01/23/24 08:15 01/25/24 22:11 units/ Sodium Chloride IV CONT Not Given .Q24H EDMOND Protocol 1 UNITS/HR Albumin Human 50 mls @ 999 mls/hr 01/26/24 11:40 01/27/24 09:51 Albutein IVPB 02/25/24 11:39 999 mls/hr Q10M PRN Administration HYPOTENSION Insulin Aspart 4 - 8 units 01/19/24 12:00 01/28/24 15:15 Insulin Aspart (*Bkc) 100 Units/Ml SUB-Q 4 units Q4H EDMOND Administration Protocol Insulin Glargine 65 units 01/26/24 09:00 01/28/24 08:08 Insulin Glargine (*Bkc) 100 Units/Ml SUB-Q 65 units QAM EDMOND Administration Levothyroxine Sodium 112 mcg 01/19/24 06:30 01/28/24 06:42 Levothyroxine Sodium 112 Mcg Tablet PO 112 mcg DAILY@0630 EDMOND Administration Metoclopramide HCl 10 mg 01/25/24 12:00 01/28/24 12:47 Metoclopramide Hcl 10 Mg/10 Ml Soln Udc FEED TUBE 10 mg Q6HR EDMOND Administration Midazolam HCl 2 mg 01/21/24 07:40 01/23/24 09:38 Midazolam Hcl (*Crx) 2 Mg/2 Ml Vial IV PUSH 2 mg Q5M PRN Administration ventilator asynchrony Midazolam HCl 4 mg 01/21/24 09:35 01/26/24 05:58 Midazolam Hcl (*Crx) 2 Mg/2 Ml Vial IV PUSH 4 mg PRN PRN Administration Sedation Multi-Ingred Cream/Lotion/Oil/Oint 1 applic 01/21/24 09:00 01/28/24 08:11 Mineral Oil/White Petrolatum Ointment EACH EYE 1 applic Q12HR EDMOND Administration Ondansetron HCl 4 mg 01/18/24 22:13 Ondansetron Inj 4 Mg/2 Ml Vial IV PUSH Q4H PRN Nausea Pantoprazole Sodium 40 mg 01/19/24 09:00 01/28/24 08:11 Pantoprazole Sodium Iv 40 Mg Vial IV PUSH 40 mg Q12HR EDMOND Administration Polyethylene Glycol 17 gm 01/24/24 09:00 01/28/24 08:11 Polyethylene Glycol 3350 17 Gm Powd.Pack PO 17 gm QAM EDMOND Administration Vancomycin HCl 1 each 01/26/24 11:43 Vancomycin For Hemodialysis IVPB PRN PRN Vancomycin Protocol Radiology Results: ITS Impressions Chest/Abdomen/Pelvis CTA 01/18/24 18:30 IMPRESSION: Nonocclusive acute subsegmental pulmonary embolus in the left lower lobe. Very small clot burden. No evidence of right heart strain. Left lower lobe pneumonia. Mild hepatomegaly. Possible cystitis. Otherwise, no acute abdominopelvic process detected. Head CT 01/19/24 05:47 Impression: No intracranial hemorrhage, mass, or acute infarct. Atrophy and chronic white matter changes, as above. Venous Doppler Study 01/19/24 15:06 IMPRESSION: Negative bilateral lower extremity venous US. No deep vein thrombosis. Chest/Abdomen/Pelvis CT 01/22/24 12:43 IMPRESSION: Worsening respiratory status with bibasilar consolidation and interstitial thickening with patchy groundglass opacification bilaterally -findings suggesting ARDS. Mural thickening within the rectosigmoid colon with multiple diverticula and prominence of the vasa recta, possibly early diverticulitis. Interval development of perihepatic fluid, compared with previous study. Renal Ultrasound 01/24/24 12:05 IMPRESSION: 1. Normal kidneys without hydronephrosis. Abdomen X-Ray 01/25/24 14:53 IMPRESSION: NG tube in distal stomach Nonspecific abdomen Chest X-Ray 01/28/24 06:07 IMPRESSION: 1. Stable diffuse lung disease, consistent with pneumonia superimposed on emphysema. Labs Labs: Laboratory Tests 01/28/24 05:23 01/28/24 05:23 Calcium 7.8 L Phosphorus 4.8 H Magnesium 2.0 Total Bilirubin 0.8 AST 38 H ALT 21 Alkaline Phosphatase 99 Total Protein 6.0 L Albumin 3.5 Random Vancomycin 15.9
--- NOTE | 2024-01-28 11:15 | PCFNICU ---
ICU Rounding Note: Pt current nutrition is Vital AF 1.2 at 50 ml/hr. Nutrition recommendation: Nepro at 40 ml/hr. Last recorded weight is 83.1 kg. Bowel Motility: FMS Labs Reviewed:Glu 204, Cr 1.5, BUN 55, GFR 34 Meds Noted: Flagyl, Rocephin, NovoLog, Lantus, Versed, Fentanyl, Miralax. Skin: WNL Additional Notes: Patient remains on a mechanical vent. Tube feedings are bring tolerating of Vital AF 1.2. New Dialysis start. Recommending tube feedings changes to Nepro at 40 ml/hr. Tube feedings providing 1584 kcal/71 gm protein/570 ml water. Flush 75 ml q 4 hours. Agree with diet orders. Following daily in ICU rounds. Monitor tube feeding initiation, tolerance, wt, labs. Follow daily in ICU rounds and follow up every Friday and Friday.
--- NOTE | 2024-01-28 12:17 | P.PNINT_ITS ---
Progress Note: A&P Assessment and Plan (1) Acute respiratory failure: Code(s): J96.00 - Acute respiratory failure, unspecified whether with hypoxia or hypercapnia Status: Acute Assessment and Plan: Acute Respiratory failure secondary to pneumonia and PE. Patient appears to have developed ARDS Patient had became CPAP dependent 100% FiO2. Forty of Lasix given IV last night without any significant improvement. Patient does not have any edema on lower extremity suggestive of heart failure. Echo reviewed. 01/20 patient intubated for discussion with the patient and her daughter. ABG reviewed and low tidal volume ventilation. PEEP set at 12 tidal volume at 300 mL. FiO2 is 100%. Increase respiratory rate to 26 Post intubation patient was coughing and gagging leading to desaturation hence was given rocuronium. Patient was started on Nimbex infusion along with sedation at this time. Patient was placed in prone position 01/21 patient was switched to supine position around 2:00 a.m.. She is a 70% FiO2 and 12 of PEEP 01/22 on 55% FiO2 and 12 of PEEP. ABG reviewed. Decrease respiratory rate to 24. Continue to wean FiO2. CT scan done yesterday showed IMPRESSION: Worsening respiratory status with bibasilar consolidation and interstitial thickening with patchy groundglass opacification bilaterally -findings suggesting ARDS. 01/23 overnight patient had increased oxygen requirement. Yesterday morning neuromuscular yasemin infusion was discontinued but patient later was a synchronous with the ventilator with coughing and gagging. Sedation was increased but did not fix the problem patient desaturated. Nimbex infusion was restarted. This morning she is on 70% FiO2 and Wean FiO2 to 65% this morning 01/24 continues to be on mechanical ventilation and is on 70% FiO2 and 12 of PEEP. I will increase the PEEP to 14. 01/25 Chest x-ray reviewed and does not show any significant change and shows stable diffuse lung disease Continue Low tidal volume ventilation and permissive hypercapnia and permissive respiratory acidosis 01/25: Started dialysis with removal of 1066 mL in fluid removal -remains on CMV mode of ventilation, peep of 12 and 50% FiO2, patient is getting dialyzed again today, will try and wean PEEP to 10 after dialysis if possible -Continue Bronchodilators -chest x-ray and ABGs reviewed Patient started on course of steroids due to severity of pneumonia and ARDS which will be continued Patient has been off of Nimbex infusion for last 24 hours and will continue as tolerated (2) Septic shock: Code(s): A41.9 - Sepsis, unspecified organism; R65.21 - Severe sepsis with septic shock Status: Acute Assessment and Plan: Secondary to pneumonia 01/17: Patient presented with hypotension, elevated lactic acid levels, fevers, cough, hypoxia -received 30 mL/kg IV fluids -started on Levophed via femoral central line - Off IV fluids vasopressors now -01/17: Blood cultures have been obtained and negative till now MRSA screen negative Urine pneumococcal antigen negative Urine Legionella antigen pending Influenza RSV and COVID PCR negative 01/22: Sputum cultures growing MRSA, -continue vancomycin 01/26 Flagyl and ceftriaxone discontinued (3) Community acquired pneumonia: Qualifiers: Laterality: left Lung location: lower lobe of lung Qualified Code(s): J18.9 - Pneumonia, unspecified organism Code(s): J18.9 - Pneumonia, unspecified organism Status: Acute Assessment and Plan: See above (4) Diabetes: Code(s): E11.9 - Type 2 diabetes mellitus without complications Status: Acute Assessment and Plan: Uncontrolled Continue Lantus Insulin infusion has been transition to subcutaneous insulin now (5) Acute kidney injury: Code(s): N17.9 - Acute kidney failure, unspecified Status: Acute Assessment and Plan: Patient initially presented with Acute kidney injury likely related to hypotension, septic shock She was adequately fluid-resuscitated and came off of IV fluids Creatinine normalized initially Patient did receive contrast for CTA Creatinine increased post intubation. 01/22 Lasix IV x1 Patient was given 25% albumin and will give 5% albumin. Will avoid liberal fluids due to patient's respiratory status. Patient is positive her I/O balance 01/25: Creatinine continues to increase along with elevated BUN today. Urine output also decreasing. Dr Dunbar discussed with nephrology and family will plan to initiate dialysis. Temporary dialysis catheter placed after obtaining consent from patient's family. Discussed with nephrology. Short Story Writer will arrange for dialysis 01/25: Started dialysis with 1066 mL in fluid removal 01/26: Dialysis with 883 mL in fluid removal 01/27: Being dialyzed today (6) Pulmonary embolism: Code(s): I26.99 - Other pulmonary embolism without acute cor pulmonale Status: Acute Assessment and Plan: Venous Dopplers negative 01/26: Heparin infusion is being held due to anemia and hematuria and drop in hemoglobin -will continue to monitor hemoglobin levels, if remains stable, may start Lovenox 1 mg/kg daily starting 01/27 01/27: Hemoglobin 7.0 this morning, will continue to hold anticoagulation, will transfuse 01/17: CT chest abdomen and pelvis IMPRESSION: Nonocclusive acute subsegmental pulmonary embolus in the left lower lobe. Very small clot burden. No evidence of right heart strain. Left lower lobe pneumonia. Mild hepatomegaly. Possible cystitis. Otherwise, no acute abdominopelvic process detected. Echo Summary 1. Left ventricular systolic function is normal, estimated at 55-60%. 2. There is mildly increased left ventricular wall thickness. 3. The left ventricular diastolic function is grade I diastolic dysfunction. 4. There is trace mitral valve regurgitation. 5. There is trace tricuspid valve regurgitation. 6. No pulmonary hypertension, estimated pulmonary arterial systolic pressure is 41 mmHg. 7. Right ventricular systolic function is normal. 8. Right ventricular chamber dimension is normal. (7) Electrolyte abnormality: Code(s): E87.8 - Other disorders of electrolyte and fluid balance, not elsewhere classified Status: Acute Assessment and Plan: Sodium levels have improved -will decrease tube feed flushes (8) Diverticulitis: Code(s): K57.92 - Diverticulitis of intestine, part unspecified, without perforation or abscess without bleeding Status: Acute Assessment and Plan: CT abdomen pelvis showed Mural thickening within the rectosigmoid colon with multiple diverticula and prominence of the vasa recta, possibly early diverticulitis. Interval development of perihepatic fluid, compared with previous study. Will discontinue ceftriaxone and Flagyl (9) Ileus: Code(s): K56.7 - Ileus, unspecified Status: Acute Assessment and Plan: Patient has been having high tube feed residuals, Reglan was started on 01/26/2024. Patient tolerating tube feeds better. Has been having bowel movements -will advance tube feeds to goal -switch to Nepro (10) Anemia: Code(s): D64.9 - Anemia, unspecified Status: Acute Assessment and Plan: Patient's hemoglobin has gradually trended down over last 4-5 days. She is on heparin infusion for PE. There has been no evidence of bleeding. Continue monitor this time. Transfuse if hemoglobin less than 7. Platelets are at acceptable level. She is also on aspirin Plavix for coronary disease She is on Protonix twice a day 01/26: Hemoglobin dropped to 7.1, will hold heparin infusion. Monitor hemoglobin levels and if the improved restart either heparin infusion or Lovenox 1 mg/kg daily 01/27: Hemoglobin 7.0 this morning, will transfuse 1 unit of packed RBCs with hemodialysis, continue to hold anticoagulation Plan DVT prophylaxis: Heparin infusion has been stopped due to drop in hemoglobin, continue SCDs Stress ulcer prophylaxis: Protonix IV q.12 hours Nutrition:. Continue tube feeds and advance to goal. Code Status: 01/20 Dr Dunbar spoke to patient prior to intubation about cold and goals of care. She stated that she would like 1-2 rounds of resuscitation in case of cardiac arrest to see if she can be brought back but does not want prolonged resuscitation efforts. She also states that if she is unable to come off the ventilator in 2 weeks time she would not want a feeding tube and tracheostomy for long-term mechanical ventilation. Patient's daughter was at bedside and in agreement with patient's wishes 01/22 patient's son updated him patient's current status including changes in the respiratory status, worsening renal function. I answered all questions. 01/25 spoke to and updated patient's daughter at bedside. I answered all her questions Critical Care Time Spent: 34 minutes Due to a high probability of clinically significant, life threatening deterioration, the patient required my highest level of preparedness to intervene emergently and I personally spent this critical care time directly and personally managing the patient. This critical care time included obtaining a history; examining the patient; pulse oximetry; ordering and review of studies; arranging urgent treatment with development of a management plan; evaluation of patient's response to treatment; frequent reassessment; and discussions with ot er providers. It was exclusive of separately billable procedures and treating other patients and teaching time. Please see Assessment and Plan section and the rest of the note for further information on patient assessment and treatment This dictation may have been done utilizing a voice recognition system. Attempts have been made to correct errors. However, there may be uncorrected grammatical, spelling, and recognitions errors present. Subjective Date/time seen: 01/28/24 12:17 Interval history: 68yo female with HTN, CHF, DM and HLD with PE pneumonia acute respiratory failure ARDS acute kidney injury 01/28/2024: Patient seen and examined the ICU, remains intubated on CMV mode of ventilation, peep of 12, 50% FiO2. Sedated with fentanyl and Versed infusion, patient does not open her eyes to name but does not follow simple commands. She does withdraw to pain in all extremities. Has been off heparin infusion since 01/26, hemoglobin this morning is 7.0. Urine output has been adequate, patient had dialysis yesterday on 01/26 with 883 mL in fluid removal Review of Systems Review of Systems: ROS unobtainable: Yes unobtainable due to endotracheal tube, unobtainable due to medical condition and unobtainable due to mental status Exam Narrative: General: Patient is intubated, sedated in no acute distress HEENT:? Pupils equal and reactive, sclerae sclera, ET tube in place Neck:? Supple Respiratory:? Coarse breath sounds bilaterally no wheezing, adequate air entry Cardiac:? S1-S2 was normal, regular rate and rhythm Abdomen:? Soft, non distended, no tenderness, hypoactive bowel sounds, Extremities:? No edema, palpable pedal pulses Neuro:? Patient is intubated, sedated, opens her eyes to name but does not follow simple commands. Withdraws to pain in all extremities Skin:? Warm and dry Objective Data Vital Signs Vital Signs: Vital Signs - 24 hr 01/27/24 14:00 01/27/24 14:00 01/27/24 14:08 Temperature Pulse Rate 74 74 74 Respiratory Rate 26 H 26 H 29 H Blood Pressure Pulse Oximetry Oxygen Delivery Fraction of Inspired Oxygen 01/27/24 14:14 01/27/24 14:00 01/27/24 14:00 Temperature Pulse Rate 75 74 74 Respiratory Rate 26 H Blood Pressure 122/47 L Pulse Oximetry 97 97 Oxygen Delivery Mechanical Ventilation Fraction of Inspired Oxygen 60 01/27/24 14:16 01/27/24 15:24 01/27/24 15:25 Temperature Pulse Rate 75 75 75 Respiratory Rate 28 H 26 H 26 H Blood Pressure Pulse Oximetry Oxygen Delivery Fraction of Inspired Oxygen 01/27/24 16:00 01/27/24 16:00 01/27/24 16:00 Temperature 100.1 F H Pulse Rate 74 73 Respiratory Rate 26 H 26 H Blood Pressure 122/54 L Pulse Oximetry 98 98 Oxygen Delivery Mechanical Ventilation Fraction of Inspired Oxygen 60 60 01/27/24 16:55 01/27/24 16:00 01/27/24 18:00 Temperature Pulse Rate 74 78 73 Respiratory Rate Blood Pressure Pulse Oximetry 98 Oxygen Delivery Mechanical Ventilation Fraction of Inspired Oxygen 60 01/27/24 18:00 01/27/24 16:00 01/27/24 18:00 Temperature Pulse Rate 78 86 82 Respiratory Rate 26 H 22 H 24 H Blood Pressure 106/50 L Pulse Oximetry 98 Oxygen Delivery Fraction of Inspired Oxygen 01/27/24 16:00 01/27/24 18:00 01/27/24 20:00 Temperature Pulse Rate 84 75 Respiratory Rate 25 H 26 H Blood Pressure Pulse Oximetry Oxygen Delivery Fraction of Inspired Oxygen 60 01/27/24 20:00 01/27/24 20:00 01/27/24 20:00 Temperature 100.4 F H Pulse Rate 78 75 75 Respiratory Rate 26 H 26 H Blood Pressure 131/55 L Pulse Oximetry 98 98 Oxygen Delivery Mechanical Ventilation Fraction of Inspired Oxygen 60 01/27/24 20:00 01/27/24 20:00 01/27/24 21:11 Temperature Pulse Rate 75 75 75 Respiratory Rate 26 H 26 H 26 H Blood Pressure Pulse Oximetry Oxygen Delivery Fraction of Inspired Oxygen 01/27/24 20:23 01/27/24 20:29 01/27/24 20:36 Temperature Pulse Rate 78 78 77 Respiratory Rate 26 H 25 H Blood Pressure Pulse Oximetry 98 Oxygen Delivery Mechanical Ventilation Fraction of Inspired Oxygen 60 01/27/24 22:00 01/27/24 22:00 01/27/24 22:00 Temperature 100.3 F H Pulse Rate 78 77 77 Respiratory Rate 26 H 26 H Blood Pressure 122/48 L Pulse Oximetry 99 Oxygen Delivery Fraction of Inspired Oxygen 01/27/24 22:29 01/27/24 23:36 01/28/24 00:00 Temperature Pulse Rate 75 76 Respiratory Rate 26 H Blood Pressure Pulse Oximetry 99 Oxygen Delivery Mechanical Ventilation Fraction of Inspired Oxygen 60 60 01/28/24 02:40 01/28/24 03:14 01/28/24 05:17 Temperature Pulse Rate 67 68 71 Respiratory Rate 24 H Blood Pressure Pulse Oximetry 99 97 Oxygen Delivery Mechanical Ventilation Mechanical Ventilation Fraction of Inspired Oxygen 60 60 01/28/24 00:00 01/28/24 02:00 01/28/24 04:00 Temperature Pulse Rate 73 75 72 Respiratory Rate 26 H 26 H 26 H Blood Pressure Pulse Oximetry Oxygen Delivery Fraction of Inspired Oxygen 01/28/24 00:00 01/28/24 02:00 01/28/24 04:00 Temperature Pulse Rate 73 75 72 Respiratory Rate 26 H 26 H 26 H Blood Pressure Pulse Oximetry Oxygen Delivery Fraction of Inspired Oxygen 01/28/24 00:00 01/28/24 00:00 01/28/24 00:00 Temperature 100.4 F H Pulse Rate 71 73 73 Respiratory Rate 26 H 26 H Blood Pressure 116/51 L Pulse Oximetry 97 99 Oxygen Delivery Mechanical Ventilation Fraction of Inspired Oxygen 60 01/28/24 02:00 01/28/24 02:00 01/28/24 04:00 Temperature 100 F H Pulse Rate 75 75 72 Respiratory Rate 26 H Blood Pressure 111/47 L Pulse Oximetry 99 Oxygen Delivery Fraction of Inspired Oxygen 01/28/24 04:00 01/28/24 04:00 01/28/24 04:00 Temperature 100 F H Pulse Rate 72 71 Respiratory Rate 26 H 26 H Blood Pressure 116/50 L Pulse Oximetry 99 97 Oxygen Delivery Mechanical Ventilation Fraction of Inspired Oxygen 60 60 01/28/24 06:00 01/28/24 06:00 01/28/24 06:00 Temperature 99.2 F Pulse Rate 67 69 67 Respiratory Rate 26 H 26 H Blood Pressure 113/51 L Pulse Oximetry 99 Oxygen Delivery Fraction of Inspired Oxygen 01/28/24 06:00 01/28/24 08:15 01/28/24 08:15 Temperature Pulse Rate 67 65 82 Respiratory Rate 26 H 26 H Blood Pressure Pulse Oximetry 92 Oxygen Delivery Mechanical Ventilation Fraction of Inspired Oxygen 50 01/28/24 08:28 01/28/24 08:00 01/28/24 08:00 Temperature 99.5 F Pulse Rate 79 65 Respiratory Rate 26 H 23 H Blood Pressure 113/51 L Pulse Oximetry 92 Oxygen Delivery Fraction of Inspired Oxygen 50 01/28/24 08:17 01/28/24 08:30 01/28/24 08:45 Temperature Pulse Rate 64 75 72 Respiratory Rate Blood Pressure 118/56 L 129/42 L 119/49 L Pulse Oximetry Oxygen Delivery Fraction of Inspired Oxygen 01/28/24 09:00 01/28/24 09:15 01/28/24 09:53 Temperature 99.3 F Pulse Rate 75 73 73 Respiratory Rate 26 H Blood Pressure 134/44 L 118/50 L 114/54 L Pulse Oximetry 97 Oxygen Delivery Fraction of Inspired Oxygen 01/28/24 09:30 01/28/24 10:15 01/28/24 10:30 Temperature Pulse Rate 72 72 75 Respiratory Rate Blood Pressure 108/51 L 119/54 L 108/48 L Pulse Oximetry Oxygen Delivery Fraction of Inspired Oxygen 01/28/24 10:45 01/28/24 11:00 01/28/24 11:50 Temperature Pulse Rate 70 75 72 Respiratory Rate Blood Pressure 118/55 L 112/51 L 109/55 L Pulse Oximetry Oxygen Delivery Fraction of Inspired Oxygen 01/28/24 09:45 01/28/24 10:00 01/28/24 10:45 Temperature Pulse Rate 71 72 70 Respiratory Rate Blood Pressure 114/54 L 110/53 L Pulse Oximetry 97 Oxygen Delivery Mechanical Ventilation Fraction of Inspired Oxygen 50 01/28/24 08:00 01/28/24 08:00 01/28/24 08:00 Temperature 99.5 F Pulse Rate 66 66 66 Respiratory Rate 26 H 26 H Blood Pressure 113/51 L Pulse Oximetry 100 100 Oxygen Delivery Mechanical Ventilation Fraction of Inspired Oxygen 50 01/28/24 08:00 01/28/24 10:00 01/28/24 10:00 Temperature 99.3 F Pulse Rate 73 73 Respiratory Rate 21 H Blood Pressure 110/53 L Pulse Oximetry 97 Oxygen Delivery Fraction of Inspired Oxygen 50 01/28/24 10:09 01/28/24 11:09 01/28/24 11:19 Temperature 99.2 F 99.2 F 99.2 F Pulse Rate 72 75 71 Respiratory Rate 26 H 26 H 23 H Blood Pressure 119/54 L 112/51 L 117/56 L Pulse Oximetry 99 94 96 Oxygen Delivery Fraction of Inspired Oxygen 01/28/24 11:15 01/28/24 11:30 Temperature Pulse Rate 70 72 Respiratory Rate Blood Pressure 117/56 L 114/54 L Pulse Oximetry Oxygen Delivery Fraction of Inspired Oxygen Intake/Output Intake/Output: Intake & Output 01/25/24 01/26/24 01/27/24 01/28/24 23:59 23:59 23:59 23:59 Intake Total 2549.3 2230.0 2010.5 1189.1 Output Total 1425 1 2083 725 Balance 1124.3 209.0 -72.5 464.1 Meds/Results Medications: Active Medications Generic Name Dose Route Start Last Admin Trade Name Jorgeq PRN Reason Stop Dose Admin Acetaminophen 650 mg 01/20/24 10:08 01/20/24 10:29 Acetaminophen 325 Mg Tablet PO 650 mg Q4H PRN Administration Mild Pain (1-3) or Fever Acetylcysteine 200 mg 01/28/24 14:00 Acetylcysteine 20% Inhal Soln 800 Mg/4 Ml Vial INHALATION Q6HRT EDMOND Albuterol/Ipratropium 3 ml 01/22/24 14:00 01/28/24 08:15 Ipratropium 0.5 Mg/Albuterol Sulfate 2.5 Mg Ampul.Neb 3 Ml INHALATION 3 ml Q6HRT EDMOND Administration Aspirin 81 mg 01/19/24 08:00 01/28/24 08:10 Aspirin 81 Mg Chewable Tablet PO 81 mg DAILY@0800 EDMOND Administration Atorvastatin Calcium 40 mg 01/19/24 09:00 01/28/24 08:10 Atorvastatin 40 Mg Tablet PO 40 mg DAILY EDMOND Administration Clopidogrel Bisulfate 75 mg 01/19/24 09:00 01/28/24 08:10 Clopidogrel Bisulfate 75 Mg Tablet PO 75 mg DAILY EDMOND Administration Dextrose 12.5 gm 01/18/24 23:28 Dextrose 50% 25 Gm/50 Ml Syringe IV PUSH PRN PRN Hypoglycemia Protocol Epoetin Ronnell-epbx 10,000 units 01/28/24 20:12 01/28/24 09:39 Epoetin Ronnell-Epbx 10,000 Units/Ml Vial IV PUSH 01/28/24 20:13 10,000 units ONCE ONE Administration Glucagon 1 mg 01/18/24 23:28 Glucagon For Inj 1 Mg Vial IM PRN PRN Hypoglycemia Protocol Glucose 15 gm 01/18/24 23:28 Glucose Oral Gel 15 Gm Of Glucse In 37.5 Gm Tube PO PRN PRN Hypoglycemia Protocol Heparin Sodium (Porcine) 4,500 units 01/18/24 23:25 01/26/24 17:28 Heparin Sodium 5,000 Units/Ml Vial IV PUSH 4,500 units PRN PRN Administration aPTT less than 55 seconds Heparin Sodium (Porcine) 2,500 units 01/18/24 23:25 01/24/24 06:17 Heparin Sodium 5,000 Units/Ml Vial IV PUSH 2,500 units PRN PRN Administration aPTT 55 - 70 seconds Heparin Sodium/Dextrose 25,000 units in 250 mls @ 0 mls/hr 01/18/24 23:25 01/27/24 14:00 Heparin Sodium/D5w 100 Units/Ml IV CONT Infused .Q0M EDMOND Titration Protocol 0 UNITS/HR Dextrose 1,000 mls @ 100 mls/hr 01/18/24 23:28 Dextrose 5% 1,000 Ml IVPB PRN PRN Hypoglycemia Protocol Fentanyl Citrate 2,500 mcg in 250 mls @ 10 mls/hr 01/21/24 07:40 01/28/24 06:00 Fentanyl 2,500 Mcg/Ns 250 Ml IV CONT 100 mcg/hr .Q25H EDMOND 10 mls/hr Titration Protocol 100 MCG/HR Midazolam HCl 100 mg in 100 mls @ 4 mls/hr 01/21/24 07:40 01/28/24 06:00 Versed 100 Mg/Ns 100 Ml IV CONT 4 mg/hr .Q25H EDMOND 4 mls/hr Titration Protocol 4 MG/HR Norepinephrine Bitartrate 8 mg in 250 mls @ 9.375 mls/hr 01/22/24 08:05 01/25/24 13:13 Levophed 8 Mg/D5w 250 Ml IV CONT Not Given .Q24H EDMOND Protocol 5 MCG/MIN Insulin Human Regular 100 100 mls @ 1 mls/hr 01/23/24 08:15 01/25/24 22:11 units/ Sodium Chloride IV CONT Not Given .Q24H EDMOND Protocol 1 UNITS/HR Albumin Human 50 mls @ 999 mls/hr 01/26/24 11:40 01/27/24 09:51 Albutein IVPB 02/25/24 11:39 999 mls/hr Q10M PRN Administration HYPOTENSION Sodium Chloride 250 mls @ 30 mls/hr 01/28/24 07:12 01/28/24 12:15 Normal Saline Iv IV CONT 01/28/24 15:31 Not Given .Q8H20M STA Vancomycin HCl 750 mg in 250 mls @ 250 mls/hr 01/28/24 15:00 Vancomycin 750 Mg/Ns 250 Ml IVPB 01/28/24 15:59 ONCE ONE Insulin Aspart 4 - 8 units 01/19/24 12:00 01/28/24 08:06 Insulin Aspart (*Bkc) 100 Units/Ml SUB-Q 4 units Q4H EDMOND Administration Protocol Insulin Glargine 65 units 01/26/24 09:00 01/28/24 08:08 Insulin Glargine (*Bkc) 100 Units/Ml SUB-Q 65 units QAM EDMOND Administration Levothyroxine Sodium 112 mcg 01/19/24 06:30 01/28/24 06:42 Levothyroxine Sodium 112 Mcg Tablet PO 112 mcg DAILY@0630 EDMOND Administration Metoclopramide HCl 10 mg 01/25/24 12:00 01/28/24 05:34 Metoclopramide Hcl 10 Mg/10 Ml Soln Udc FEED TUBE Not Given Q6HR EDMOND Midazolam HCl 2 mg 01/21/24 07:40 01/23/24 09:38 Midazolam Hcl (*Crx) 2 Mg/2 Ml Vial IV PUSH 2 mg Q5M PRN Administration ventilator asynchrony Midazolam HCl 4 mg 01/21/24 09:35 01/26/24 05:58 Midazolam Hcl (*Crx) 2 Mg/2 Ml Vial IV PUSH 4 mg PRN PRN Administration Sedation Multi-Ingred Cream/Lotion/Oil/Oint 1 applic 01/21/24 09:00 01/28/24 08:11 Mineral Oil/White Petrolatum Ointment EACH EYE 1 applic Q12HR EDMOND Administration Ondansetron HCl 4 mg 01/18/24 22:13 Ondansetron Inj 4 Mg/2 Ml Vial IV PUSH Q4H PRN Nausea Pantoprazole Sodium 40 mg 01/19/24 09:00 01/28/24 08:11 Pantoprazole Sodium Iv 40 Mg Vial IV PUSH 40 mg Q12HR EDMOND Administration Polyethylene Glycol 17 gm 01/24/24 09:00 01/28/24 08:11 Polyethylene Glycol 3350 17 Gm Powd.Pack PO 17 gm QAM EDMOND Administration Vancomycin HCl 1 each 01/26/24 11:43 Vancomycin For Hemodialysis IVPB PRN PRN Vancomycin Protocol Radiology Results: ITS Impressions Chest/Abdomen/Pelvis CTA 01/18/24 18:30 IMPRESSION: Nonocclusive acute subsegmental pulmonary embolus in the left lower lobe. Very small clot burden. No evidence of right heart strain. Left lower lobe pneumonia. Mild hepatomegaly. Possible cystitis. Otherwise, no acute abdominopelvic process detected. Head CT 01/19/24 05:47 Impression: No intracranial hemorrhage, mass, or acute infarct. Atrophy and chronic white matter changes, as above. Venous Doppler Study 01/19/24 15:06 IMPRESSION: Negative bilateral lower extremity venous US. No deep vein thrombosis. Chest/Abdomen/Pelvis CT 01/22/24 12:43 IMPRESSION: Worsening respiratory status with bibasilar consolidation and interstitial thickening with patchy groundglass opacification bilaterally -findings suggesting ARDS. Mural thickening within the rectosigmoid colon with multiple diverticula and prominence of the vasa recta, possibly early diverticulitis. Interval development of perihepatic fluid, compared with previous study. Renal Ultrasound 01/24/24 12:05 IMPRESSION: 1. Normal kidneys without hydronephrosis. Abdomen X-Ray 01/25/24 14:53 IMPRESSION: NG tube in distal stomach Nonspecific abdomen Chest X-Ray 01/28/24 06:07 IMPRESSION: 1. Stable diffuse lung disease, consistent with pneumonia superimposed on emphysema. Labs Labs: Laboratory Results - last 24 hr 01/27/24 01/27/24 01/27/24 00:16 15:51 21:01 WBC RBC Hgb Hct MCV MCH MCHC RDW Plt Count MPV Immature Gran % (Auto) Neut % (Auto) Lymph % (Auto) [place] % (Auto) Eos % (Auto) Baso % (Auto) Lymph # (Auto) [place] # (Auto) Eos # (Auto) Baso # (Auto) Abs Immat Gran (auto) Absolute Neuts (auto) Absolute Nucleated RBC Nucleated RBC % Atypical Lymphocytes Platelet Estimate Schistocytes APTT 168.2 H* Puncture Site ABG pH ABG pCO2 ABG pO2 ABG PO2/FiO2 Ratio ABG HCO3 ABG O2 Saturation ABG O2 Content ABG Base Excess A-a Gradient Oxyhemoglobin Carboxyhemoglobin Methemoglobin Reduced Hemoglobin Total Hemoglobin O2 Delivery Device O2 Liters/Min Minute Volume Vent Rate Vent Mode FiO2 Tidal Volume PEEP Peak Inspir Pressure Pressure Support Sodium Potassium Chloride Carbon Dioxide Anion Gap BUN Creatinine Estim Creat Clear Calc Estimated GFR Glucose POC Capillary Glucose 212 H 217 H Calcium Phosphorus Magnesium Total Bilirubin AST ALT Alkaline Phosphatase Total Protein Albumin Random Vancomycin Blood Type Antibody Screen Crossmatch 01/28/24 01/28/24 01/28/24 00:28 04:38 05:23 WBC 19.2 H RBC 2.19 L Hgb 7.0 L Hct 22.0 L MCV 100.5 H MCH 32.0 MCHC 31.8 L RDW 15.6 H Plt Count 240 MPV 11.9 H Immature Gran % (Auto) 9.5 H Neut % (Auto) 72.9 Lymph % (Auto) 13.6 L [place] % (Auto) 2.6 Eos % (Auto) 1.2 Baso % (Auto) 0.2 Lymph # (Auto) 2.62 [place] # (Auto) 0.5 Eos # (Auto) 0.2 Baso # (Auto) 0.0 Abs Immat Gran (auto) 1.82 H Absolute Neuts (auto) 14.0 H Absolute Nucleated RBC 0.070 H Nucleated RBC % 0.4 H Atypical Lymphocytes Present Platelet Estimate Adequate Schistocytes None seen APTT Puncture Site Right radial ABG pH 7.379 ABG pCO2 43.1 ABG pO2 80.1 ABG PO2/FiO2 Ratio 1.33 ABG HCO3 24.9 ABG O2 Saturation 95.6 ABG O2 Content 9.6 L ABG Base Excess -0.3 A-a Gradient 300.3 Oxyhemoglobin 93.7 Carboxyhemoglobin 1.5 Methemoglobin 0.3 Reduced Hemoglobin 4.5 Total Hemoglobin 7.2 L* O2 Delivery Device Ventilator O2 Liters/Min Not Reportable Minute Volume Not Reportable Vent Rate 26 Vent Mode Cmv FiO2 60 Tidal Volume 360 PEEP 12 Peak Inspir Pressure Not Reportable Pressure Support Not Reportable Sodium 139 Potassium 3.6 Chloride 102 Carbon Dioxide 30 Anion Gap 7 BUN 55 H D Creatinine 1.50 H Estim Creat Clear Calc 30 Estimated GFR 34 L Glucose 204 H POC Capillary Glucose 198 H 231 H Calcium 7.8 L Phosphorus 4.8 H Magnesium 2.0 Total Bilirubin 0.8 AST 38 H ALT 21 Alkaline Phosphatase 99 Total Protein 6.0 L Albumin 3.5 Random Vancomycin 15.9 Blood Type Antibody Screen Crossmatch 01/28/24 01/28/24 07:39 08:06 WBC RBC Hgb Hct MCV MCH MCHC RDW Plt Count MPV Immature Gran % (Auto) Neut % (Auto) Lymph % (Auto) [place] % (Auto) Eos % (Auto) Baso % (Auto) Lymph # (Auto) [place] # (Auto) Eos # (Auto) Baso # (Auto) Abs Immat Gran (auto) Absolute Neuts (auto) Absolute Nucleated RBC Nucleated RBC % Atypical Lymphocytes Platelet Estimate Schistocytes APTT Puncture Site ABG pH ABG pCO2 ABG pO2 ABG PO2/FiO2 Ratio ABG HCO3 ABG O2 Saturation ABG O2 Content ABG Base Excess A-a Gradient Oxyhemoglobin Carboxyhemoglobin Methemoglobin Reduced Hemoglobin Total Hemoglobin O2 Delivery Device O2 Liters/Min Minute Volume Vent Rate Vent Mode FiO2 Tidal Volume PEEP Peak Inspir Pressure Pressure Support Sodium Potassium Chloride Carbon Dioxide Anion Gap BUN Creatinine Estim Creat Clear Calc Estimated GFR Glucose POC Capillary Glucose 213 H Calcium Phosphorus Magnesium Total Bilirubin AST ALT Alkaline Phosphatase Total Protein Albumin Random Vancomycin Blood Type O Positive Antibody Screen Negative Crossmatch See Detail
[2024-01-28 12:40] LABS: Glucose Point of Care 175 mg/dl (65-105)
[2024-01-28] MEDS: METOCLOPRAMIDE HCL 10 MG/10 ML SOLN UDC FEED TUBE ×2 (12:47→17:07)
[2024-01-28] MEDS: ACETYLCYSTEINE 20% INHAL SOLN 800 MG/4 ML VIAL 200 MG INHALATION ×2 (13:39→20:09)
[2024-01-28] MEDS: VANCOMYCIN 750 MG/NS 250 ML 750 MG/250 ML BAG 250 MG IVPB (15:09)
[2024-01-28 15:15] LABS: Glucose Point of Care 219 mg/dl (65-105)
[2024-01-28] MEDS: FENTANYL 2,500MCG/NS250ML(*CRX 2,500 MCG/250 ML BAG 7.5 MCG IV CONT (17:07)
[2024-01-28 20:17] LABS: Glucose Point of Care 206 mg/dl (65-105)
[2024-01-28] MEDS: ACETAMINOPHEN 325 MG TABLET 650 MG PO (20:20)
[2024-01-28] MEDS: MIDAZOLAM 100MG/NS 100ML(*CRX) 100 MG/100 ML BAG IV CONT (23:34)
[2024-01-28 23:37] LABS: Glucose Point of Care 146 mg/dl (65-105)
[2024-01-29] VITALS (41 sets, daily range): BP systolic 104–176; BP diastolic 44–69; PULSE 65–95; RESP 22–26; TEMP 37.7–38.3; O2SAT 91–100
[2024-01-29] MEDS: IPRATROPIUM 0.5 MG/ALBUTEROL SULFATE 2.5 MG AMPUL.NEB 3 ML INHALATION ×4 (01:50→19:55)
[2024-01-29] MEDS: ACETYLCYSTEINE 20% INHAL SOLN 800 MG/4 ML VIAL 200 MG INHALATION ×4 (01:51→19:55)
[2024-01-29 04:40] LABS: Base Excess ABG 0.5 mEq/l (+/-2.0); Carboxyhemoglobin 0.6 % THb (0-2.0); Fractional Inspired Oxygen 40 %; HCO3 ABG 24.3 mEq/l (22.0-26.0); Methemoglobin ABG 0.2 %THb (0-1.5); Oxygen Content ABG 12.1 %vol (16.0-22.0); Oxygen Saturation ABG 95.4 % (95.0-100.0); Oxyhemoglobin 94.2 % THb (90.0-100.0); PCO2 ABG 35.3 mmHg (35.0-45.0); PO2 ABG 72.6 mmHg (80.0-100.0); PO2 FiO2 Ratio Arterial Blood 1.81 %; Total Hemoglobin 9.1 g/dL (12.0-18.0); pH ABG 7.455 (7.350-7.450)
[2024-01-29 04:41] LABS: Device VENTILATOR; Modified Allen's Test Pass; Site Drawn RIGHT RADIAL
[2024-01-29 04:42] LABS: Arterial Blood Gas PEEP 10 cmH2O; Arterial Blood Gas Tidal Volume 360 ml; Arterial Blood Gas Vent Mode CMV; Arterial Blood Gas Ventilator rate 26 /MIN
[2024-01-29 05:21] LABS: Hematocrit 28.2 % (37.0-47.0); Hemoglobin 8.7 g/dL (12.0-15.0); Mean Corpuscular HGB Conc 30.9 g/dl (32-36); Mean Corpuscular Volume 100.4 fl (80-100); Mean Platelet Volume 11.4 fl (7.4-10.4); Platelet Count Result 277 k/mm3 (150-375); Red Blood Count 2.81 M/mm3 (4.2-5.4); Red Cell Distribution Width 16.2 % (11.5-14.5); White Blood Count 20.4 K/mm3 (4.5-10.0)
[2024-01-29 05:30] LABS: Glucose Point of Care 225 mg/dl (65-105)
[2024-01-29 05:34] LABS: Alanine Aminotransferase 21 U/L (6-35); Albumin Level 3.6 g/dL (3.5-5.1); Alkaline Phosphatase 121 U/L (38-126); Anion Gap 11 mmol/L (4-12); Aspartate Amino Transferase 51 U/L (14-36); Bilirubin,Total 0.8 mg/dL (0.2-1.3); Blood Urea Nitrogen 66 mg/dL (7-17); Calcium 8.5 mg/dL (8.4-10.2); Carbon Dioxide 28 mmol/L (22-30); Chloride 104 mmol/L (98-107); Estimated CRCL calculation 28 ml/min; Estimated Glomerular Filt Rate 32; Glucose 218 mg/dL (65-110); Magnesium 1.9 mg/dL (1.6-2.3); Phosphorus 4.9 mg/dL (2.5-4.5); Potassium 3.8 mmol/L (3.4-5.0); Sodium 143 mmol/L (137-145)
[2024-01-29] MEDS: INSULIN ASPART (*BKC) 100 UNITS/ML SUB-Q ×2 (05:39→12:18)
[2024-01-29] MEDS: ACETAMINOPHEN 325 MG TABLET 650 MG PO ×3 (05:40→17:51)
[2024-01-29] MEDS: LEVOTHYROXINE SODIUM 112 MCG TABLET PO (05:40)
[2024-01-29 05:55] LABS: Anisocytosis 1+; Band Neutrophils Percent 1 % (0-6); Eosinophils Percent Manual 1 % (0-4); Lymphocytes Absolute Manual 2.24 K/mm3 (1.1-4.5); Macrocytosis 1+ (NORMAL); Monocytes Absolute Manual 0.61 K/mm3 (0.1-0.90); Monocytes Percent Manual 3 % (3-9); Neutrophils Absolute Manual 17.34 K/mm3 (1.7-7.2); Neutrophils Percent Manual 84 % (46-73); Nucleated Red Blood Cells 1 %; Platelet Estimate Adequate (Adequate); Total Cells Counted 100
[2024-01-29 05:56] LABS: Hypochromasia 1+; Schistocytes None Seen; Smudge Cells PRESENT
[2024-01-29 06:00] LABS: Vancomycin Random 17.8 ug/mL (10-20)
[2024-01-29 07:28] LABS: Hepatitis B Core Ab Total NON-REACTIVE (NON-REACTIVE)
[2024-01-29 08:45] LABS: Glucose Point of Care 174 mg/dl (65-105)
[2024-01-29] MEDS: CLOPIDOGREL BISULFATE 75 MG TABLET PO (08:53)
[2024-01-29] MEDS: INSULIN GLARGINE (*BKC) 100 UNITS/ML 65 UNITS SUB-Q (08:53)
[2024-01-29] MEDS: ASPIRIN 81 MG CHEWABLE TABLET PO (08:53)
[2024-01-29] MEDS: ATORVASTATIN 40 MG TABLET PO (08:53)
[2024-01-29] MEDS: PANTOPRAZOLE SODIUM IV 40 MG VIAL IV PUSH ×2 (08:56→20:11)
[2024-01-29] MEDS: MINERAL OIL/WHITE PETROLATUM OINTMENT 1 APPLIC EACH EYE ×2 (08:56→20:11)
--- NOTE | 2024-01-29 10:18 | P.PNNP_ITS ---
Progress Note: A&P Assessment and Plan (1) Acute kidney injury: Code(s): N17.9 - Acute kidney failure, unspecified Status: Acute Assessment and Plan: * initial improvement on admission (from 1.5mg/dl to 0.9mg/dl) * then worsening again noted on 01/21 (up to 1.3mg/dl and subsequently 2.3mg/dl on 01/22) * suspect multifactorial etiology: * contrast exposure * infection/sepsis * hemodynamic instability/shock * possible prerenal factors * diuretic use prior to admission * hypoxia * other(?) * evaluation to date noted: * CPK mildly elevated * UA with blood/protein and possible infection * urine electrolytes prerenal * moderate proteinuria * renal ultrasound w/o obstruction * reasonable urine output noted * giving worsening BUN and worsening respiratory status, initiated on dialysis on 01/25 * HD on 01/26 * DUF on 01/27 * likely HD tomorrow * follow trend of repeat labs and UOP for possible renal recovery (2) Acute respiratory failure: Code(s): J96.00 - Acute respiratory failure, unspecified whether with hypoxia or hypercapnia Status: Acute Assessment and Plan: * thought to be secondary to a combination of pneumonia and pulmonary embolus +/- pulmonary edema * appears to have progressed to ARDS * intubated and placed on mechanical ventilation on 01/20 * recent CT of chest noted * was requiring paralytics with sedation * on bronchodilator therapy and antibiotics * fluid removal with dialysis as tolerated * trial of IV diuretics today * ventilator weaning when able (3) Septic shock: Code(s): A41.9 - Sepsis, unspecified organism; R65.21 - Severe sepsis with septic shock Status: Acute Assessment and Plan: * as noted on admission - hypotension, lactic acidosis, fevers, and hypoxia/respiratory failure * presumed source = pneumonia +/- diverticulitiis * s/p IVF resuscitation and vasopressor support (weaned off currently) * follow culture data * on antibiotic therapy (4) Community acquired pneumonia: Qualifiers: Laterality: left Lung location: lower lobe of lung Qualified Code(s): J18.9 - Pneumonia, unspecified organism Code(s): J18.9 - Pneumonia, unspecified organism Status: Acute Assessment and Plan: * based on evidence to date * viral swab for RSV/COVID/influenza negative * follow culture data * on antibiotics (5) Pulmonary embolism: Code(s): I26.99 - Other pulmonary embolism without acute cor pulmonale Status: Acute Assessment and Plan: * admission CTA of chest with nonocclusive acute subsegmental PE in the left lower lobe with small clot burden * venous dopplers negative * anticoagulation currently on hold due low H/H (6) Diverticulitis: Code(s): K57.92 - Diverticulitis of intestine, part unspecified, without perforation or abscess without bleeding Status: Acute Assessment and Plan: * CT abdomen pelvis with mural thickening within the rectosigmoid colon with multiple diverticula and prominence of the vasa recta, possibly early diverticulitis. Interval development of perihepatic fluid, compared with previous study * follow culturs * remains on antibiotics (7) Anemia: Code(s): D64.9 - Anemia, unspecified Status: Acute Assessment and Plan: * presumably due to YESI and acute illness * noted drop in H/H at this time * no evidence of GI loss * PRBC transfusion per protocol * 1 unit transfusion on 01/27 * Retacrit with HD * follow trend of H/H (8) Diabetes: Code(s): E11.9 - Type 2 diabetes mellitus without complications Status: Acute Assessment and Plan: * follow accu-cheks * glycemic control per electric range assembler/hospitalist Discussed case with Dr. Nelson. Will continue to follow. Subjective Date/time seen: 01/29/24 10:18 Interval history: Follow-up for acute kidney injury/acute renal failure. Tolerated dry ultrafiltration yesterday with 3L fluid removal; remains intubated/sedated and on mechanical ventilation with improvement noted in PEEP and FiO2 (presumably due to fluid removal with DUF and ongoing urine output); tolerated PRBC transfusion yesterday with appropriate incrementation in H/H and remains off heparin gtt; febrile in the last 24 hours with a Tmax of 101.3? but remains hemodynamically stable Exam Narrative: General: elderly but WD/WN female intubated/sedated and on mechanical ventilation Heart: normal S1 and S2; no rub Lungs: coarse breath sounds throughout Abdomen: soft, nontender, nondistended, positive bowel sounds Extremities: no cyanosis or clubbing; no edema Skin: warm and dry Objective Data Vital Signs Vital Signs: Vital Signs Temp Pulse Resp BP Pulse Ox O2 Del Method FiO2 01/29/24 10:00 100.7 F H 68 24 H 104/44 L 95 01/29/24 08:00 65 26 H 01/29/24 08:00 65 26 H 01/29/24 08:00 100.3 F H 70 22 H 113/50 L 96 01/29/24 08:00 40 01/29/24 08:00 70 26 H 96 Mechanical Ventilation 40 01/29/24 08:09 70 26 H 01/29/24 07:51 69 26 H 01/29/24 07:51 69 95 Mechanical Ventilation 40 01/29/24 06:00 100.4 F H 69 26 H 116/51 L 97 01/29/24 06:00 69 01/29/24 05:30 Mechanical Ventilation 45 01/29/24 04:00 69 26 H 01/29/24 05:57 75 26 H 01/29/24 05:56 75 26 H 01/29/24 04:00 69 26 H 01/29/24 05:00 45 01/29/24 04:00 100.8 F H 69 26 H 111/46 L 95 01/29/24 04:00 40 01/29/24 04:00 69 01/29/24 04:00 77 26 H 94 Mechanical Ventilation 40 01/29/24 05:40 100.8 F H 01/29/24 04:44 77 94 Mechanical Ventilation 40 01/29/24 02:00 73 26 H 01/29/24 02:00 73 26 H 01/29/24 00:00 75 26 H 01/29/24 02:00 100.5 F H 73 26 H 112/46 L 95 01/29/24 02:00 73 01/29/24 02:00 75 25 H 01/29/24 01:51 73 94 Mechanical Ventilation 40 01/29/24 01:50 75 25 H 01/29/24 00:00 100.6 F H 74 26 H 117/49 L 95 01/29/24 00:00 40 01/29/24 00:00 73 01/29/24 00:00 73 26 H 99 Mechanical Ventilation 40 01/28/24 23:34 73 26 H 01/28/24 23:34 73 26 H 01/28/24 22:00 70 26 H 01/28/24 22:00 70 26 H 01/28/24 22:00 100.8 F H 71 26 H 133/50 L 99 01/28/24 22:00 70 01/28/24 22:42 80 99 Mechanical Ventilation 40 01/28/24 20:20 101.2 F H 01/28/24 20:23 77 26 H 01/28/24 20:09 78 26 H 01/28/24 20:14 80 100 Mechanical Ventilation 40 01/28/24 20:00 77 26 H 01/28/24 20:00 77 26 H 01/28/24 20:00 101.3 F H 77 26 H 124/46 L 95 01/28/24 20:00 77 01/28/24 20:00 77 26 H 100 Mechanical Ventilation 40 01/28/24 19:58 40 01/28/24 18:00 100.5 F H 74 26 H 116/51 L 94 01/28/24 18:00 74 01/28/24 17:07 77 26 H 01/28/24 17:07 77 26 H 01/28/24 16:00 76 26 H 01/28/24 16:00 76 26 H 01/28/24 16:41 73 96 Mechanical Ventilation 40 01/28/24 16:00 76 26 H 97 Mechanical Ventilation 50 01/28/24 16:00 100.2 F H 76 26 H 157/56 H 97 01/28/24 16:00 76 01/28/24 16:00 50 Intake/Output Intake/Output: Intake & Output 01/26/24 01/27/24 01/28/24 01/29/24 23:59 23:59 23:59 23:59 Intake Total 2230.0 2010.5 1968.9 763.4 Output Total 2020 2082 4450 1100 Balance 209.0 -72.5 -2481.1 -336.6 Meds/Results Medications: Active Medications Generic Name Dose Route Start Last Admin Trade Name Freq PRN Reason Stop Dose Admin Acetaminophen 650 mg 01/20/24 10:08 01/29/24 11:09 Acetaminophen 325 Mg Tablet PO 650 mg Q4H PRN Administration Mild Pain (1-3) or Fever Acetylcysteine 200 mg 01/28/24 14:00 01/29/24 14:00 Acetylcysteine 20% Inhal Soln 800 Mg/4 Ml Vial INHALATION 200 mg Q6HRT EDMOND Administration Albuterol/Ipratropium 3 ml 11/21/24 14:00 01/29/24 14:00 Ipratropium 0.5 Mg/Albuterol Sulfate 2.5 Mg Ampul.Neb 3 Ml INHALATION 3 ml Q6HRT EDMOND Administration Aspirin 81 mg 01/19/24 08:00 01/29/24 08:53 Aspirin 81 Mg Chewable Tablet PO 81 mg DAILY@0800 EDMOND Administration Atorvastatin Calcium 40 mg 01/19/24 09:00 01/29/24 08:53 Atorvastatin 40 Mg Tablet PO 40 mg DAILY EDMOND Administration Clopidogrel Bisulfate 75 mg 01/19/24 09:00 01/29/24 08:53 Clopidogrel Bisulfate 75 Mg Tablet PO 75 mg DAILY EDMOND Administration Dextrose 12.5 gm 01/18/24 23:28 Dextrose 50% 25 Gm/50 Ml Syringe IV PUSH PRN PRN Hypoglycemia Protocol Glucagon 1 mg 01/18/24 23:28 Glucagon For Inj 1 Mg Vial IM PRN PRN Hypoglycemia Protocol Glucose 15 gm 01/18/24 23:28 Glucose Oral Gel 15 Gm Of Glucse In 37.5 Gm Tube PO PRN PRN Hypoglycemia Protocol Heparin Sodium (Porcine) 4,500 units 01/18/24 23:25 01/26/24 17:28 Heparin Sodium 5,000 Units/Ml Vial IV PUSH 4,500 units PRN PRN Administration aPTT less than 55 seconds Heparin Sodium (Porcine) 2,500 units 01/18/24 23:25 01/24/24 06:17 Heparin Sodium 5,000 Units/Ml Vial IV PUSH 2,500 units PRN PRN Administration aPTT 55 - 70 seconds Heparin Sodium/Dextrose 25,000 units in 250 mls @ 0 mls/hr 01/18/24 23:25 01/27/24 14:00 Heparin Sodium/D5w 100 Units/Ml IV CONT Infused .Q0M EDMOND Titration Protocol 0 UNITS/HR Dextrose 1,000 mls @ 100 mls/hr 01/18/24 23:28 Dextrose 5% 1,000 Ml IVPB PRN PRN Hypoglycemia Protocol Fentanyl Citrate 2,500 mcg in 250 mls @ 5 mls/hr 01/21/24 07:40 01/29/24 14:05 Fentanyl 2,500 Mcg/Ns 250 Ml IV CONT 50 mcg/hr .Q50H EDMOND 5 mls/hr Titration Protocol 50 MCG/HR Midazolam HCl 100 mg in 100 mls @ 2 mls/hr 01/21/24 07:40 01/29/24 14:05 Versed 100 Mg/Ns 100 Ml IV CONT 2 mg/hr .Q50H EDMOND 2 mls/hr Titration Protocol 2 MG/HR Norepinephrine Bitartrate 8 mg in 250 mls @ 9.375 mls/hr 01/22/24 08:05 01/25/24 13:13 Levophed 8 Mg/D5w 250 Ml IV CONT Not Given .Q24H EDMOND Protocol 5 MCG/MIN Insulin Human Regular 100 100 mls @ 1 mls/hr 01/23/24 08:15 01/25/24 22:11 units/ Sodium Chloride IV CONT Not Given .Q24H EDMOND Protocol 1 UNITS/HR Albumin Human 50 mls @ 999 mls/hr 01/26/24 11:40 01/27/24 09:51 Albutein IVPB 02/25/24 11:39 999 mls/hr Q10M PRN Administration HYPOTENSION Insulin Aspart 4 - 8 units 01/19/24 12:00 01/29/24 12:18 Insulin Aspart (*Bkc) 100 Units/Ml SUB-Q 4 units Q4H EDMOND Administration Protocol Insulin Glargine 65 units 01/26/24 09:00 01/29/24 08:53 Insulin Glargine (*Bkc) 100 Units/Ml SUB-Q 65 units QAM EDMOND Administration Levothyroxine Sodium 112 mcg 01/19/24 06:30 01/29/24 05:40 Levothyroxine Sodium 112 Mcg Tablet PO 112 mcg DAILY@0630 EDMOND Administration Midazolam HCl 2 mg 01/21/24 07:40 01/23/24 09:38 Midazolam Hcl (*Crx) 2 Mg/2 Ml Vial IV PUSH 2 mg Q5M PRN Administration ventilator asynchrony Midazolam HCl 4 mg 01/21/24 09:35 01/26/24 05:58 Midazolam Hcl (*Crx) 2 Mg/2 Ml Vial IV PUSH 4 mg PRN PRN Administration Sedation Multi-Ingred Cream/Lotion/Oil/Oint 1 applic 01/21/24 09:00 01/29/24 08:56 Mineral Oil/White Petrolatum Ointment EACH EYE 1 applic Q12HR EDMOND Administration Ondansetron HCl 4 mg 01/18/24 22:13 Ondansetron Inj 4 Mg/2 Ml Vial IV PUSH Q4H PRN Nausea Pantoprazole Sodium 40 mg 01/19/24 09:00 01/29/24 08:56 Pantoprazole Sodium Iv 40 Mg Vial IV PUSH 40 mg Q12HR EDMOND Administration Polyethylene Glycol 17 gm 01/29/24 10:19 Polyethylene Glycol 3350 17 Gm Powd.Pack PO QAM PRN Constipation Vancomycin HCl 1 each 01/26/24 11:43 Vancomycin For Hemodialysis IVPB PRN PRN Vancomycin Protocol Radiology Results: ITS Impressions Chest/Abdomen/Pelvis CTA 01/18/24 18:30 IMPRESSION: Nonocclusive acute subsegmental pulmonary embolus in the left lower lobe. Very small clot burden. No evidence of right heart strain. Left lower lobe pneumonia. Mild hepatomegaly. Possible cystitis. Otherwise, no acute abdominopelvic process detected. Head CT 01/19/24 05:47 Impression: No intracranial hemorrhage, mass, or acute infarct. Atrophy and chronic white matter changes, as above. Venous Doppler Study 01/19/24 15:06 IMPRESSION: Negative bilateral lower extremity venous US. No deep vein thrombosis. Chest/Abdomen/Pelvis CT 01/22/24 12:43 IMPRESSION: Worsening respiratory status with bibasilar consolidation and interstitial thickening with patchy groundglass opacification bilaterally -findings suggesting ARDS. Mural thickening within the rectosigmoid colon with multiple diverticula and prominence of the vasa recta, possibly early diverticulitis. Interval development of perihepatic fluid, compared with previous study. Renal Ultrasound 01/24/24 12:05 IMPRESSION: 1. Normal kidneys without hydronephrosis. Abdomen X-Ray 01/25/24 14:53 IMPRESSION: NG tube in distal stomach Nonspecific abdomen Chest X-Ray 01/29/24 06:34 IMPRESSION: 1. Diffuse bilateral lung disease with decrease in the lower lung zones consistent with improving pneumonia. Labs Labs: Laboratory Tests 01/29/24 05:12 01/29/24 05:12 Calcium 8.5 Phosphorus 4.9 H Magnesium 1.9 Total Bilirubin 0.8 AST 51 H ALT 21 Alkaline Phosphatase 121 Total Protein 7.0 Albumin 3.6 Random Vancomycin 17.8
--- NOTE | 2024-01-29 10:40 | PCRTNOTE ---
During morning ventilator checks RN and RT found the ETT @ 23 @ the lip. Discussed with Dr. Nelson during rounds and he said to leave the ETT @ 23 @ the lip. RN present during rounds as well as RT.
--- NOTE | 2024-01-29 11:01 | WPDINTPN ---
Progress Note: A&P Assessment and Plan (1) Acute respiratory failure: Code(s): J96.00 - Acute respiratory failure, unspecified whether with hypoxia or hypercapnia Status: Acute Assessment and Plan: Acute Respiratory failure secondary to pneumonia and PE. Patient appears to have developed ARDS Patient had became CPAP dependent 100% FiO2. Forty of Lasix given IV last night without any significant improvement. Patient does not have any edema on lower extremity suggestive of heart failure. Echo reviewed. 01/20 patient intubated for discussion with the patient and her daughter. ABG reviewed and low tidal volume ventilation. PEEP set at 12 tidal volume at 300 mL. FiO2 is 100%. Increase respiratory rate to 26 Post intubation patient was coughing and gagging leading to desaturation hence was given rocuronium. Patient was started on Nimbex infusion along with sedation at this time. Patient was placed in prone position 01/21 patient was switched to supine position around 2:00 a.m.. She is a 70% FiO2 and 12 of PEEP 01/22 on 55% FiO2 and 12 of PEEP. ABG reviewed. Decrease respiratory rate to 24. Continue to wean FiO2. CT scan done yesterday showed IMPRESSION: Worsening respiratory status with bibasilar consolidation and interstitial thickening with patchy groundglass opacification bilaterally -findings suggesting ARDS. 01/23 overnight patient had increased oxygen requirement. Yesterday morning neuromuscular yasemin infusion was discontinued but patient later was a synchronous with the ventilator with coughing and gagging. Sedation was increased but did not fix the problem patient desaturated. Nimbex infusion was restarted. This morning she is on 70% FiO2 and Wean FiO2 to 65% this morning 01/24 continues to be on mechanical ventilation and is on 70% FiO2 and 12 of PEEP. I will increase the PEEP to 14. 01/25 Chest x-ray reviewed and does not show any significant change and shows stable diffuse lung disease Continue Low tidal volume ventilation and permissive hypercapnia and permissive respiratory acidosis 01/25: Started dialysis with removal of 1066 mL in fluid removal -remains on CMV mode of ventilation, peep of 10 and 40% FiO2, -Continue Bronchodilators -chest x-ray and ABGs reviewed Patient started on course of steroids due to severity of pneumonia and ARDS which will be continued Patient has been off of Nimbex infusion for last 24 hours and will continue as tolerated (2) Septic shock: Code(s): A41.9 - Sepsis, unspecified organism; R65.21 - Severe sepsis with septic shock Status: Acute Assessment and Plan: Secondary to pneumonia 01/17: Patient presented with hypotension, elevated lactic acid levels, fevers, cough, hypoxia -received 30 mL/kg IV fluids -started on Levophed via femoral central line - Off IV fluids vasopressors now -01/17: Blood cultures have been obtained and negative till now MRSA screen negative Urine pneumococcal antigen negative Urine Legionella antigen pending Influenza RSV and COVID PCR negative 01/22: Sputum cultures growing MRSA, -continue vancomycin 01/26 Flagyl and ceftriaxone discontinued 01/28: Patient has been febrile with a T-max of 101.3?, 01/28: Pancultured (3) Community acquired pneumonia: Qualifiers: Laterality: left Lung location: lower lobe of lung Qualified Code(s): J18.9 - Pneumonia, unspecified organism Code(s): J18.9 - Pneumonia, unspecified organism Status: Acute Assessment and Plan: See above (4) Diabetes: Code(s): E11.9 - Type 2 diabetes mellitus without complications Status: Acute Assessment and Plan: Uncontrolled Continue Accu-Cheks and sliding scale insulin Continue Lantus (5) Acute kidney injury: Code(s): N17.9 - Acute kidney failure, unspecified Status: Acute Assessment and Plan: Patient initially presented with Acute kidney injury likely related to hypotension, septic shock She was adequately fluid-resuscitated and came off of IV fluids Creatinine normalized initially Patient did receive contrast for CTA Creatinine increased post intubation. 01/22 Lasix IV x1 Patient was given 25% albumin and will give 5% albumin. Will avoid liberal fluids due to patient's respiratory status. Patient is positive her I/O balance 01/25: Creatinine continues to increase along with elevated BUN today. Urine output also decreasing. Dr Dunbar discussed with nephrology and family will plan to initiate dialysis. Temporary dialysis catheter placed after obtaining consent from patient's family. Discussed with nephrology. Certified [employer] will arrange for dialysis 01/25: Started dialysis with 1066 mL in fluid removal 01/26: Dialysis with 883 mL in fluid removal 01/27: Dialysis with 3000 mL in fluid removal (6) Pulmonary embolism: Code(s): I26.99 - Other pulmonary embolism without acute cor pulmonale Status: Acute Assessment and Plan: Venous Dopplers negative 01/26: Heparin infusion is being held due to anemia and hematuria and drop in hemoglobin -will continue to monitor hemoglobin levels, if remains stable, may start Lovenox 1 mg/kg daily starting 01/27 01/27: Hemoglobin 7.0 this morning, will continue to hold anticoagulation, status post 1 unit of packed RBC 01/17: CT chest abdomen and pelvis IMPRESSION: Nonocclusive acute subsegmental pulmonary embolus in the left lower lobe. Very small clot burden. No evidence of right heart strain. Left lower lobe pneumonia. Mild hepatomegaly. Possible cystitis. Otherwise, no acute abdominopelvic process detected. Echo Summary 1. Left ventricular systolic function is normal, estimated at 55-60%. 2. There is mildly increased left ventricular wall thickness. 3. The left ventricular diastolic function is grade I diastolic dysfunction. 4. There is trace mitral valve regurgitation. 5. There is trace tricuspid valve regurgitation. 6. No pulmonary hypertension, estimated pulmonary arterial systolic pressure is 41 mmHg. 7. Right ventricular systolic function is normal. 8. Right ventricular chamber dimension is normal. (7) Electrolyte abnormality: Code(s): E87.8 - Other disorders of electrolyte and fluid balance, not elsewhere classified Status: Acute Assessment and Plan: Sodium levels have improved -continue tube feed flushes (8) Diverticulitis: Code(s): K57.92 - Diverticulitis of intestine, part unspecified, without perforation or abscess without bleeding Status: Acute Assessment and Plan: CT abdomen pelvis showed Mural thickening within the rectosigmoid colon with multiple diverticula and prominence of the vasa recta, possibly early diverticulitis. Interval development of perihepatic fluid, compared with previous study. Will discontinue ceftriaxone and Flagyl (9) Ileus: Code(s): K56.7 - Ileus, unspecified Status: Acute Assessment and Plan: Patient has been having high tube feed residuals, Reglan was started on 01/26/2024. Patient tolerating tube feeds better. Has been having bowel movements -01/28: tube feeds have been switched to Nepro on 01/27, currently at goal, positive bowel movements (10) Anemia: Code(s): D64.9 - Anemia, unspecified Status: Acute Assessment and Plan: Patient's hemoglobin has gradually trended down over last 4-5 days. She is on heparin infusion for PE. There has been no evidence of bleeding. Continue monitor this time. Transfuse if hemoglobin less than 7. Platelets are at acceptable level. She is also on aspirin Plavix for coronary disease She is on Protonix twice a day 01/26: Hemoglobin dropped to 7.1, will hold heparin infusion. Monitor hemoglobin levels and if the improved restart either heparin infusion or Lovenox 1 mg/kg daily 01/27: Hemoglobin 7.0 this morning, status post 1 unit of packed RBCs with hemodialysis, continue to hold anticoagulation Plan DVT prophylaxis: Heparin infusion has been stopped due to drop in hemoglobin, continue SCDs Stress ulcer prophylaxis: Protonix IV q.12 hours Nutrition: On Nepro, tube feeds at goal Code Status: 01/20 Dr Dunbar spoke to patient prior to intubation about cold and goals of care. She stated that she would like 1-2 rounds of resuscitation in case of cardiac arrest to see if she can be brought back but does not want prolonged resuscitation efforts. She also states that if she is unable to come off the ventilator in 2 weeks time she would not want a feeding tube and tracheostomy for long-term mechanical ventilation. Patient's daughter was at bedside and in agreement with patient's wishes Critical Care Time Spent: 34 minutes Discussed with patient's family and updated with her condition and plan of care. I answered all the questions Due to a high probability of clinically significant, life threatening deterioration, the patient required my highest level of preparedness to intervene emergently and I personally spent this critical care time directly and personally managing the patient. This critical care time included obtaining a history; examining the patient; pulse oximetry; ordering and review of studies; arranging urgent treatment with development of a management plan; evaluation of patient's response to treatment; frequent reassessment; and discussions with other providers. It was exclusive of separately billable procedures and treating other patients and teaching time. Please see Assessment and Plan section and the rest of the note for further information on patient assessment and treatment This dictation may have been done utilizing a voice recognition system. Attempts have been made to correct errors. However, there may be uncorrected grammatical, spelling, and recognitions errors present. Subjective Date/time seen: 01/29/24 11:01 Interval history: 68yo female with HTN, CHF, DM and HLD with PE pneumonia acute respiratory failure ARDS acute kidney injury 01/28/2024: Patient seen and examined the ICU, remains intubated on CMV mode of ventilation, peep of 10, 40% FiO2. Sedated with fentanyl and Versed infusion, patient does not open her eyes or follow simple commands. She does withdraw to pain in all extremities. Has been off heparin infusion since 01/26, hemoglobin this morning is 8.7 after 1 unit of packed RBCs on 01/27. Urine output has been adequate, patient had dialysis yesterday on 01/27 with 3000 mL in fluid removal. T-max of 101.3?, hemodynamically stable Review of Systems Review of Systems: ROS unobtainable: Yes unobtainable due to endotracheal tube, unobtainable due to medical condition and unobtainable due to mental status Exam Narrative: General: Patient is intubated, sedated in no acute distress HEENT:? Pupils equal and reactive, sclerae sclera, ET tube in place Neck:? Supple Respiratory:? Coarse breath sounds bilaterally no wheezing, adequate air entry Cardiac:? S1-S2 was normal, regular rate and rhythm Abdomen:? Soft, non distended, no tenderness, hypoactive bowel sounds, Extremities:? No edema, palpable pedal pulses Neuro:? Patient is intubated, sedated, does not open her eyes to name or follow simple commands. Withdraws to pain in all extremities Skin:? Warm and dry Objective Data Vital Signs Vital Signs: Vital Signs - 24 hr 01/28/24 11:50 01/28/24 11:09 01/28/24 11:19 Temperature 99.2 F 99.2 F Pulse Rate 72 75 71 Respiratory Rate 26 H 23 H Blood Pressure 109/55 L 112/51 L 117/56 L Pulse Oximetry 94 96 Oxygen Delivery Fraction of Inspired Oxygen 01/28/24 11:15 01/28/24 11:30 01/28/24 12:00 Temperature Pulse Rate 70 72 Respiratory Rate Blood Pressure 117/56 L 114/54 L Pulse Oximetry Oxygen Delivery Fraction of Inspired Oxygen 50 01/28/24 12:00 01/28/24 12:00 01/28/24 12:00 Temperature 99.4 F Pulse Rate 69 69 69 Respiratory Rate 26 H 26 H Blood Pressure 120/53 L Pulse Oximetry 98 98 Oxygen Delivery Mechanical Ventilation Fraction of Inspired Oxygen 50 01/28/24 11:58 01/28/24 13:40 01/28/24 13:43 Temperature 99.3 F Pulse Rate 71 73 73 Respiratory Rate 26 H 26 H Blood Pressure 118/54 L Pulse Oximetry 96 97 Oxygen Delivery Mechanical Ventilation Fraction of Inspired Oxygen 50 01/28/24 13:54 01/28/24 14:00 01/28/24 14:00 Temperature 100.2 F H Pulse Rate 79 76 76 Respiratory Rate 26 H 26 H Blood Pressure 126/52 L Pulse Oximetry 95 Oxygen Delivery Fraction of Inspired Oxygen 01/28/24 16:00 01/28/24 16:00 01/28/24 16:00 Temperature 100.2 F H Pulse Rate 76 76 Respiratory Rate 26 H Blood Pressure 157/56 H Pulse Oximetry 97 Oxygen Delivery Fraction of Inspired Oxygen 50 01/28/24 16:00 01/28/24 16:41 01/28/24 12:00 Temperature Pulse Rate 76 73 69 Respiratory Rate 26 H 26 H Blood Pressure Pulse Oximetry 97 96 Oxygen Delivery Mechanical Ventilation Mechanical Ventilation Fraction of Inspired Oxygen 50 40 01/28/24 12:30 01/28/24 14:00 01/28/24 16:00 Temperature Pulse Rate 71 76 76 Respiratory Rate 26 H 26 H 26 H Blood Pressure Pulse Oximetry Oxygen Delivery Fraction of Inspired Oxygen 01/28/24 14:00 01/28/24 16:00 01/28/24 12:30 Temperature Pulse Rate 76 76 71 Respiratory Rate 26 H 26 H 26 H Blood Pressure Pulse Oximetry Oxygen Delivery Fraction of Inspired Oxygen 01/28/24 17:07 01/28/24 17:07 01/28/24 18:00 Temperature Pulse Rate 77 77 74 Respiratory Rate 26 H 26 H Blood Pressure Pulse Oximetry Oxygen Delivery Fraction of Inspired Oxygen 01/28/24 18:00 01/28/24 19:58 01/28/24 20:00 Temperature 100.5 F H Pulse Rate 74 77 Respiratory Rate 26 H 26 H Blood Pressure 116/51 L Pulse Oximetry 94 100 Oxygen Delivery Mechanical Ventilation Fraction of Inspired Oxygen 40 40 01/28/24 20:00 01/28/24 20:00 01/28/24 20:00 Temperature 101.3 F H Pulse Rate 77 77 77 Respiratory Rate 26 H 26 H Blood Pressure 124/46 L Pulse Oximetry 95 Oxygen Delivery Fraction of Inspired Oxygen 01/28/24 20:00 01/28/24 20:14 01/28/24 20:09 Temperature Pulse Rate 77 80 78 Respiratory Rate 26 H 26 H Blood Pressure Pulse Oximetry 100 Oxygen Delivery Mechanical Ventilation Fraction of Inspired Oxygen 40 01/28/24 20:23 01/28/24 20:20 01/28/24 22:42 Temperature 101.2 F H Pulse Rate 77 80 Respiratory Rate 26 H Blood Pressure Pulse Oximetry 99 Oxygen Delivery Mechanical Ventilation Fraction of Inspired Oxygen 40 01/28/24 22:00 01/28/24 22:00 01/28/24 22:00 Temperature 100.8 F H Pulse Rate 70 71 70 Respiratory Rate 26 H 26 H Blood Pressure 133/50 L Pulse Oximetry 99 Oxygen Delivery Fraction of Inspired Oxygen 01/28/24 22:00 01/28/24 23:34 01/28/24 23:34 Temperature Pulse Rate 70 73 73 Respiratory Rate 26 H 26 H 26 H Blood Pressure Pulse Oximetry Oxygen Delivery Fraction of Inspired Oxygen 01/29/24 00:00 01/29/24 00:00 01/29/24 00:00 Temperature Pulse Rate 73 73 Respiratory Rate 26 H Blood Pressure Pulse Oximetry 99 Oxygen Delivery Mechanical Ventilation Fraction of Inspired Oxygen 40 40 01/29/24 00:00 01/29/24 01:50 01/29/24 01:51 Temperature 100.6 F H Pulse Rate 74 75 73 Respiratory Rate 26 H 25 H Blood Pressure 117/49 L Pulse Oximetry 95 94 Oxygen Delivery Mechanical Ventilation Fraction of Inspired Oxygen 40 01/29/24 02:00 01/29/24 02:00 01/29/24 02:00 Temperature 100.5 F H Pulse Rate 75 73 73 Respiratory Rate 25 H 26 H Blood Pressure 112/46 L Pulse Oximetry 95 Oxygen Delivery Fraction of Inspired Oxygen 01/29/24 00:00 01/29/24 02:00 01/29/24 02:00 Temperature Pulse Rate 75 73 73 Respiratory Rate 26 H 26 H 26 H Blood Pressure Pulse Oximetry Oxygen Delivery Fraction of Inspired Oxygen 01/29/24 04:44 01/29/24 05:40 01/29/24 04:00 Temperature 100.8 F H Pulse Rate 77 77 Respiratory Rate 26 H Blood Pressure Pulse Oximetry 94 94 Oxygen Delivery Mechanical Ventilation Mechanical Ventilation Fraction of Inspired Oxygen 40 40 01/29/24 04:00 01/29/24 04:00 01/29/24 04:00 Temperature 100.8 F H Pulse Rate 69 69 Respiratory Rate 26 H Blood Pressure 111/46 L Pulse Oximetry 95 Oxygen Delivery Fraction of Inspired Oxygen 40 01/29/24 05:00 01/29/24 04:00 01/29/24 05:56 Temperature Pulse Rate 69 75 Respiratory Rate 26 H 26 H Blood Pressure Pulse Oximetry Oxygen Delivery Fraction of Inspired Oxygen 45 01/29/24 05:57 01/29/24 04:00 01/29/24 05:30 Temperature Pulse Rate 75 69 Respiratory Rate 26 H 26 H Blood Pressure Pulse Oximetry Oxygen Delivery Mechanical Ventilation Fraction of Inspired Oxygen 45 01/29/24 06:00 01/29/24 06:00 01/29/24 07:51 Temperature 100.4 F H Pulse Rate 69 69 69 Respiratory Rate 26 H Blood Pressure 116/51 L Pulse Oximetry 97 95 Oxygen Delivery Mechanical Ventilation Fraction of Inspired Oxygen 40 01/29/24 07:51 01/29/24 08:09 01/29/24 08:00 Temperature Pulse Rate 69 70 70 Respiratory Rate 26 H 26 H 26 H Blood Pressure Pulse Oximetry 96 Oxygen Delivery Mechanical Ventilation Fraction of Inspired Oxygen 40 01/29/24 08:00 01/29/24 08:00 01/29/24 08:00 Temperature 100.3 F H Pulse Rate 70 65 Respiratory Rate 22 H 26 H Blood Pressure 113/50 L Pulse Oximetry 96 Oxygen Delivery Fraction of Inspired Oxygen 40 01/29/24 10:02 01/29/24 08:00 01/29/24 10:02 Temperature Pulse Rate 66 65 66 Respiratory Rate 26 H 26 H 26 H Blood Pressure Pulse Oximetry Oxygen Delivery Fraction of Inspired Oxygen 01/29/24 10:00 01/29/24 10:46 Temperature 100.7 F H Pulse Rate 68 82 Respiratory Rate 24 H Blood Pressure 104/44 L Pulse Oximetry 95 95 Oxygen Delivery Mechanical Ventilation Fraction of Inspired Oxygen 40 Intake/Output Intake/Output: Intake & Output 01/26/24 01/27/24 01/28/24 01/29/24 23:59 23:59 23:59 23:59 Intake Total 2230.0 2009.5 1968.9 735.0 Output Total 2020 2082 4450 1100 Balance 209.0 -72.5 -2481.1 -365.0 Meds/Results Medications: Active Medications Generic Name Dose Route Start Last Admin Trade Name Freq PRN Reason Stop Dose Admin Acetaminophen 650 mg 01/20/24 10:08 01/29/24 05:40 Acetaminophen 325 Mg Tablet PO 650 mg Q4H PRN Administration Mild Pain (1-3) or Fever Acetylcysteine 200 mg 01/28/24 14:00 01/29/24 07:51 Acetylcysteine 20% Inhal Soln 800 Mg/4 Ml Vial INHALATION 200 mg Q6HRT EDMOND Administration Albuterol/Ipratropium 3 ml 01/22/24 14:00 01/29/24 07:51 Ipratropium 0.5 Mg/Albuterol Sulfate 2.5 Mg Ampul.Neb 3 Ml INHALATION 3 ml Q6HRT EDMOND Administration Aspirin 81 mg 01/19/24 08:00 01/29/24 08:53 Aspirin 81 Mg Chewable Tablet PO 81 mg DAILY@0800 EDMOND Administration Atorvastatin Calcium 40 mg 01/19/24 09:00 01/29/24 08:53 Atorvastatin 40 Mg Tablet PO 40 mg DAILY EDMOND Administration Clopidogrel Bisulfate 75 mg 01/19/24 09:00 01/29/24 08:53 Clopidogrel Bisulfate 75 Mg Tablet PO 75 mg DAILY EDMOND Administration Dextrose 12.5 gm 01/18/24 23:28 Dextrose 50% 25 Gm/50 Ml Syringe IV PUSH PRN PRN Hypoglycemia Protocol Glucagon 1 mg 01/18/24 23:28 Glucagon For Inj 1 Mg Vial IM PRN PRN Hypoglycemia Protocol Glucose 15 gm 01/18/24 23:28 Glucose Oral Gel 15 Gm Of Glucse In 37.5 Gm Tube PO PRN PRN Hypoglycemia Protocol Heparin Sodium (Porcine) 4,500 units 01/18/24 23:25 01/26/24 17:28 Heparin Sodium 5,000 Units/Ml Vial IV PUSH 4,500 units PRN PRN Administration aPTT less than 55 seconds Heparin Sodium (Porcine) 2,500 units 01/18/24 23:25 01/24/24 06:17 Heparin Sodium 5,000 Units/Ml Vial IV PUSH 2,500 units PRN PRN Administration aPTT 55 - 70 seconds Heparin Sodium/Dextrose 25,000 units in 250 mls @ 0 mls/hr 01/18/24 23:25 01/27/24 14:00 Heparin Sodium/D5w 100 Units/Ml IV CONT Infused .Q0M EDMOND Titration Protocol 0 UNITS/HR Dextrose 1,000 mls @ 100 mls/hr 01/18/24 23:28 Dextrose 5% 1,000 Ml IVPB PRN PRN Hypoglycemia Protocol Fentanyl Citrate 2,500 mcg in 250 mls @ 5 mls/hr 01/21/24 07:40 01/29/24 10:02 Fentanyl 2,500 Mcg/Ns 250 Ml IV CONT 50 mcg/hr .Q50H EDMOND 5 mls/hr Titration Protocol 50 MCG/HR Midazolam HCl 100 mg in 100 mls @ 2 mls/hr 01/21/24 07:40 01/29/24 10:02 Versed 100 Mg/Ns 100 Ml IV CONT 2 mg/hr .Q50H EDMOND 2 mls/hr Titration Protocol 2 MG/HR Norepinephrine Bitartrate 8 mg in 250 mls @ 9.375 mls/hr 01/22/24 08:05 01/25/24 13:13 Levophed 8 Mg/D5w 250 Ml IV CONT Not Given .Q24H EDMOND Protocol 5 MCG/MIN Insulin Human Regular 100 100 mls @ 1 mls/hr 01/23/24 08:15 01/25/24 22:11 units/ Sodium Chloride IV CONT Not Given .Q24H EDMOND Protocol 1 UNITS/HR Albumin Human 50 mls @ 999 mls/hr 01/26/24 11:40 01/27/24 09:51 Albutein IVPB 02/25/24 11:39 999 mls/hr Q10M PRN Administration HYPOTENSION Insulin Aspart 4 - 8 units 01/19/24 12:00 01/29/24 08:48 Insulin Aspart (*Bkc) 100 Units/Ml SUB-Q Not Given Q4H [facility] Protocol Insulin Glargine 65 units 01/26/24 09:00 01/29/24 08:53 Insulin Glargine (*Bkc) 100 Units/Ml SUB-Q 65 units QAM EDMOND Administration Levothyroxine Sodium 112 mcg 01/19/24 06:30 01/29/24 05:40 Levothyroxine Sodium 112 Mcg Tablet PO 112 mcg DAILY@0630 EDMOND Administration Midazolam HCl 2 mg 01/21/24 07:40 01/23/24 09:38 Midazolam Hcl (*Crx) 2 Mg/2 Ml Vial IV PUSH 2 mg Q5M PRN Administration ventilator asynchrony Midazolam HCl 4 mg 01/21/24 09:35 01/26/24 05:58 Midazolam Hcl (*Crx) 2 Mg/2 Ml Vial IV PUSH 4 mg PRN PRN Administration Sedation Multi-Ingred Cream/Lotion/Oil/Oint 1 applic 01/21/24 09:00 01/29/24 08:56 Mineral Oil/White Petrolatum Ointment EACH EYE 1 applic Q12HR EDMOND Administration Ondansetron HCl 4 mg 01/18/24 22:13 Ondansetron Inj 4 Mg/2 Ml Vial IV PUSH Q4H PRN Nausea Pantoprazole Sodium 40 mg 01/19/24 09:00 01/29/24 08:56 Pantoprazole Sodium Iv 40 Mg Vial IV PUSH 40 mg Q12HR EDMOND Administration Polyethylene Glycol 17 gm 01/29/24 10:19 Polyethylene Glycol 3350 17 Gm Powd.Pack PO QAM PRN Constipation Vancomycin HCl 1 each 01/26/24 11:43 Vancomycin For Hemodialysis IVPB PRN PRN Vancomycin Protocol Radiology Results: ITS Impressions Chest/Abdomen/Pelvis CTA 01/18/24 18:30 IMPRESSION: Nonocclusive acute subsegmental pulmonary embolus in the left lower lobe. Very small clot burden. No evidence of right heart strain. Left lower lobe pneumonia. Mild hepatomegaly. Possible cystitis. Otherwise, no acute abdominopelvic process detected. Head CT 01/19/24 05:47 Impression: No intracranial hemorrhage, mass, or acute infarct. Atrophy and chronic white matter changes, as above. Venous Doppler Study 01/19/24 15:06 IMPRESSION: Negative bilateral lower extremity venous US. No deep vein thrombosis. Chest/Abdomen/Pelvis CT 01/22/24 12:43 IMPRESSION: Worsening respiratory status with bibasilar consolidation and interstitial thickening with patchy groundglass opacification bilaterally -findings suggesting ARDS. Mural thickening within the rectosigmoid colon with multiple diverticula and prominence of the vasa recta, possibly early diverticulitis. Interval development of perihepatic fluid, compared with previous study. Renal Ultrasound 01/24/24 12:05 IMPRESSION: 1. Normal kidneys without hydronephrosis. Abdomen X-Ray 01/25/24 14:53 IMPRESSION: NG tube in distal stomach Nonspecific abdomen Chest X-Ray 01/29/24 06:34 IMPRESSION: 1. Diffuse bilateral lung disease with decrease in the lower lung zones consistent with improving pneumonia. Labs Labs: Laboratory Results - last 24 hr 01/28/24 01/28/24 01/28/24 05:23 07:39 12:38 WBC RBC Hgb Hct MCV MCH MCHC RDW Plt Count MPV Immature Gran % (Auto) Neut % (Auto) Lymph % (Auto) Gilchrist % (Auto) Eos % (Auto) Baso % (Auto) Lymph # (Auto) Gilchrist # (Auto) Eos # (Auto) Baso # (Auto) Abs Immat Gran (auto) Absolute Neuts (auto) Absolute Nucleated RBC Total Counted Neutrophils % (Manual) Band Neutrophils % Lymphocytes % (Manual) Monocytes % (Manual) Eosinophils % (Manual) Nucleated RBC % Abs Neuts (Manual) Abs Lymphs (Manual) Abs Monocytes (Manual) Absolute Eos (Manual) Nucleated RBCs Smudge Cells Platelet Estimate Hypochromasia Anisocytosis Macrocytosis Schistocytes Puncture Site ABG pH ABG pCO2 ABG pO2 ABG PO2/FiO2 Ratio ABG HCO3 ABG O2 Saturation ABG O2 Content ABG Base Excess A-a Gradient Oxyhemoglobin Carboxyhemoglobin Methemoglobin Reduced Hemoglobin Total Hemoglobin O2 Delivery Device O2 Liters/Min Minute Volume Vent Rate Vent Mode FiO2 Tidal Volume PEEP Peak Inspir Pressure Pressure Support Sodium Potassium Chloride Carbon Dioxide Anion Gap BUN Creatinine Estim Creat Clear Calc Estimated GFR Glucose POC Capillary Glucose 175 H Calcium Phosphorus Magnesium Total Bilirubin AST ALT Alkaline Phosphatase Total Protein Albumin Random Vancomycin Hep B Core Total Ab Non-reactive Crossmatch See Detail 01/28/24 01/28/24 01/28/24 15:13 20:13 23:32 WBC RBC Hgb Hct MCV MCH MCHC RDW Plt Count MPV Immature Gran % (Auto) Neut % (Auto) Lymph % (Auto) Gilchrist % (Auto) Eos % (Auto) Baso % (Auto) Lymph # (Auto) Gilchrist # (Auto) Eos # (Auto) Baso # (Auto) Abs Immat Gran (auto) Absolute Neuts (auto) Absolute Nucleated RBC Total Counted Neutrophils % (Manual) Band Neutrophils % Lymphocytes % (Manual) Monocytes % (Manual) Eosinophils % (Manual) Nucleated RBC % Abs Neuts (Manual) Abs Lymphs (Manual) Abs Monocytes (Manual) Absolute Eos (Manual) Nucleated RBCs Smudge Cells Platelet Estimate Hypochromasia Anisocytosis Macrocytosis Schistocytes Puncture Site ABG pH ABG pCO2 ABG pO2 ABG PO2/FiO2 Ratio ABG HCO3 ABG O2 Saturation ABG O2 Content ABG Base Excess A-a Gradient Oxyhemoglobin Carboxyhemoglobin Methemoglobin Reduced Hemoglobin Total Hemoglobin O2 Delivery Device O2 Liters/Min Minute Volume Vent Rate Vent Mode FiO2 Tidal Volume PEEP Peak Inspir Pressure Pressure Support Sodium Potassium Chloride Carbon Dioxide Anion Gap BUN Creatinine Estim Creat Clear Calc Estimated GFR Glucose POC Capillary Glucose 219 H 206 H 146 H Calcium Phosphorus Magnesium Total Bilirubin AST ALT Alkaline Phosphatase Total Protein Albumin Random Vancomycin Hep B Core Total Ab Crossmatch 01/29/24 01/29/24 01/29/24 04:29 05:12 05:27 WBC 20.4 H RBC 2.81 L Hgb 8.7 L Hct 28.2 L MCV 100.4 H MCH 31.0 MCHC 30.9 L RDW 16.2 H Plt Count 277 MPV 11.4 H Immature Gran % (Auto) Not Reportable Neut % (Auto) Not Reportable Lymph % (Auto) Not Reportable Gilchrist % (Auto) Not Reportable Eos % (Auto) Not Reportable Baso % (Auto) Not Reportable Lymph # (Auto) Not Reportable Gilchrist # (Auto) Not Reportable Eos # (Auto) Not Reportable Baso # (Auto) Not Reportable Abs Immat Gran (auto) Not Reportable Absolute Neuts (auto) Not Reportable Absolute Nucleated RBC Not Reportable Total Counted 100 Neutrophils % (Manual) 84 H Band Neutrophils % 1 Lymphocytes % (Manual) 11.0 L Monocytes % (Manual) 3 Eosinophils % (Manual) 1 Nucleated RBC % Not Reportable Abs Neuts (Manual) 17.34 H Abs Lymphs (Manual) 2.24 Abs Monocytes (Manual) 0.61 Absolute Eos (Manual) 0.20 Nucleated RBCs 1 Smudge Cells Present Platelet Estimate Adequate Hypochromasia 1+ Anisocytosis 1+ Macrocytosis 1+ Schistocytes None seen Puncture Site Right radial ABG pH 7.455 H ABG pCO2 35.3 ABG pO2 72.6 L ABG PO2/FiO2 Ratio 1.81 ABG HCO3 24.3 ABG O2 Saturation 95.4 ABG O2 Content 12.1 L ABG Base Excess 0.5 A-a Gradient 172.0 Oxyhemoglobin 94.2 Carboxyhemoglobin 0.6 Methemoglobin 0.2 Reduced Hemoglobin 5.0 Total Hemoglobin 9.1 L O2 Delivery Device Ventilator O2 Liters/Min Not Reportable Minute Volume Not Reportable Vent Rate 26 Vent Mode Cmv FiO2 40 Tidal Volume 360 PEEP 10 Peak Inspir Pressure Not Reportable Pressure Support Not Reportable Sodium 143 Potassium 3.8 Chloride 104 Carbon Dioxide 28 Anion Gap 11 BUN 66 H D Creatinine 1.60 H Estim Creat Clear Calc 28 Estimated GFR 32 L Glucose 218 H POC Capillary Glucose 225 H Calcium 8.5 Phosphorus 4.9 H Magnesium 1.9 Total Bilirubin 0.8 AST 51 H ALT 21 Alkaline Phosphatase 121 Total Protein 7.0 Albumin 3.6 Random Vancomycin 17.8 Hep B Core Total Ab Crossmatch 01/29/24 08:27 WBC RBC Hgb Hct MCV MCH MCHC RDW Plt Count MPV Immature Gran % (Auto) Neut % (Auto) Lymph % (Auto) Gilchrist % (Auto) Eos % (Auto) Baso % (Auto) Lymph # (Auto) [place]christ # (Auto) Eos # (Auto) Baso # (Auto) Abs Immat Gran (auto) Absolute Neuts (auto) Absolute Nucleated RBC Total Counted Neutrophils % (Manual) Band Neutrophils % Lymphocytes % (Manual) Monocytes % (Manual) Eosinophils % (Manual) Nucleated RBC % Abs Neuts (Manual) Abs Lymphs (Manual) Abs Monocytes (Manual) Absolute Eos (Manual) Nucleated RBCs Smudge Cells Platelet Estimate Hypochromasia Anisocytosis Macrocytosis Schistocytes Puncture Site ABG pH ABG pCO2 ABG pO2 ABG PO2/FiO2 Ratio ABG HCO3 ABG O2 Saturation ABG O2 Content ABG Base Excess A-a Gradient Oxyhemoglobin Carboxyhemoglobin Methemoglobin Reduced Hemoglobin Total Hemoglobin O2 Delivery Device O2 Liters/Min Minute Volume Vent Rate Vent Mode FiO2 Tidal Volume PEEP Peak Inspir Pressure Pressure Support Sodium Potassium Chloride Carbon Dioxide Anion Gap BUN Creatinine Estim Creat Clear Calc Estimated GFR Glucose POC Capillary Glucose 174 H Calcium Phosphorus Magnesium Total Bilirubin AST ALT Alkaline Phosphatase Total Protein Albumin Random Vancomycin Hep B Core Total Ab Crossmatch
[2024-01-29 12:18] LABS: Glucose Point of Care 228 mg/dl (65-105)
[2024-01-29] MEDS: BUMETANIDE INJ 1 MG/4 ML VIAL 2 MG IV PUSH (13:46)
[2024-01-29 16:05] LABS: Glucose Point of Care 148 mg/dl (65-105)
[2024-01-29] MEDS: WATER, STERILE FOR INJECTION 10 ML VIAL XX (20:11)
[2024-01-29 20:49] LABS: Glucose Point of Care 185 mg/dl (65-105)
[2024-01-30] VITALS (73 sets, daily range): BP systolic 86–182; BP diastolic 36–95; PULSE 56–95; RESP 21–28; TEMP 37.7–38.8; O2SAT 90–100
[2024-01-30] MEDS: INSULIN ASPART (*BKC) 100 UNITS/ML SUB-Q ×4 (00:23→20:43)
[2024-01-30 00:53] LABS: Glucose Point of Care 232 mg/dl (65-105)
[2024-01-30] MEDS: ACETYLCYSTEINE 20% INHAL SOLN 800 MG/4 ML VIAL 200 MG INHALATION ×4 (02:14→20:26)
[2024-01-30] MEDS: IPRATROPIUM 0.5 MG/ALBUTEROL SULFATE 2.5 MG AMPUL.NEB 3 ML INHALATION ×4 (02:14→20:26)
[2024-01-30 05:04] LABS: Basophils Absolute Auto 0.1 K/mm3 (0.0-0.1); Basophils Percent Auto 0.5 % (0.2-1.2); Eosinophils Absolute Auto 0.2 K/mm3 (0-0.3); Hematocrit 27.3 % (37.0-47.0); Hemoglobin 8.4 g/dL (12.0-15.0); Immature Granulocyte Absolute 1.18 K/mm3 (0.00-0.031); Immature Granulocyte Percent A 6.7 % (0-0.5); Lymphocytes Absolute Auto 1.87 K/mm3 (0.9-3.2); Lymphocytes Percent Auto 10.6 % (18.3-44.2); Mean Corpuscular HGB Conc 30.8 g/dl (32-36); Mean Corpuscular Hemoglobin 31.3 pg (26-34); Mean Corpuscular Volume 101.9 fl (80-100); Mean Platelet Volume 11.5 fl (7.4-10.4); Monocytes Absolute Auto 0.8 K/mm3 (0.1-0.6); Monocytes Percent Auto 4.4 % (2.6-8.5); Neutrophils Absolute Auto 13.5 K/mm3 (1.3-6.7); Neutrophils Percent Auto 76.8 % (45.5-73.1); Nucleated Red Blood Cells Perc 0.3 % (0.0-0.2); Platelet Count Result 294 k/mm3 (150-375); Red Blood Count 2.68 M/mm3 (4.2-5.4); Red Cell Distribution Width 15.9 % (11.5-14.5); White Blood Count 17.6 K/mm3 (4.5-10.0)
[2024-01-30 05:13] LABS: Alanine Aminotransferase 25 U/L (6-35); Albumin Level 3.5 g/dL (3.5-5.1); Alkaline Phosphatase 115 U/L (38-126); Anion Gap 7 mmol/L (4-12); Aspartate Amino Transferase 42 U/L (14-36); Bilirubin,Total 0.9 mg/dL (0.2-1.3); Blood Urea Nitrogen 65 mg/dL (7-17); Calcium 8.9 mg/dL (8.4-10.2); Carbon Dioxide 30 mmol/L (22-30); Chloride 105 mmol/L (98-107); Estimated CRCL calculation 28 ml/min; Estimated Glomerular Filt Rate 32; Glucose 182 mg/dL (65-110); Magnesium 1.8 mg/dL (1.6-2.3); Phosphorus 4.2 mg/dL (2.5-4.5); Potassium 3.2 mmol/L (3.4-5.0); Sodium 142 mmol/L (137-145)
[2024-01-30 05:16] LABS: Base Excess ABG 3.1 mEq/l (+/-2.0); Carboxyhemoglobin 0.4 % THb (0-2.0); Fractional Inspired Oxygen 40 %; HCO3 ABG 26.1 mEq/l (22.0-26.0); Methemoglobin ABG 0.3 %THb (0-1.5); Oxygen Content ABG 13.4 %vol (16.0-22.0); Oxygen Saturation ABG 96.4 % (95.0-100.0); Oxyhemoglobin 94.9 % THb (90.0-100.0); PO2 ABG 76.1 mmHg (80.0-100.0); Reduced Hemoglobin 4.4 %THb (0-5.0)
[2024-01-30 05:17] LABS: Site Drawn RIGHT RADIAL; pH ABG 7.503 (7.350-7.450)
[2024-01-30 05:18] LABS: Arterial Blood Gas PEEP 10 cmH2O; Arterial Blood Gas Tidal Volume 360 ml; Arterial Blood Gas Vent Mode CMV; Arterial Blood Gas Ventilator rate 26 /MIN; Device VENTILATOR; Modified Allen's Test Pass
[2024-01-30 05:27] LABS: Platelet Estimate Adequate (Adequate)
[2024-01-30 05:28] LABS: Anisocytosis 1+; Hypochromasia 1+; Ovalocytes 1+; Schistocytes None Seen; Target Cells 1+
[2024-01-30] MEDS: FENTANYL 2,500MCG/NS250ML(*CRX 2,500 MCG/250 ML BAG 7.5 MCG IV CONT (06:00)
[2024-01-30] MEDS: MIDAZOLAM 100MG/NS 100ML(*CRX) 100 MG/100 ML BAG IV CONT (06:00)
[2024-01-30] MEDS: LEVOTHYROXINE SODIUM 112 MCG TABLET PO (06:03)
[2024-01-30 06:39] LABS: Glucose Point of Care 187 mg/dl (65-105)
[2024-01-30] MEDS: MIDAZOLAM HCL (*CRX) 2 MG/2 ML VIAL IV PUSH ×2 (07:20→12:00)
[2024-01-30] MEDS: KCL 40 MEQ/WATER 100 ML 100 ML 25 ML IVPB (07:50)
[2024-01-30] MEDS: ASPIRIN 81 MG CHEWABLE TABLET PO (07:50)
[2024-01-30] MEDS: MAGNESIUM SULF 2 GM/WATER 50ML 2 GM/50 ML BAG IVPB (07:50)
[2024-01-30] MEDS: POTASSIUM CHLORIDE 20 MEQ PACKET (FOR LIQUID) 40 MEQ PO (07:50)
[2024-01-30] MEDS: CLOPIDOGREL BISULFATE 75 MG TABLET PO (07:51)
[2024-01-30] MEDS: PANTOPRAZOLE SODIUM IV 40 MG VIAL IV PUSH ×2 (07:51→20:44)
[2024-01-30] MEDS: ATORVASTATIN 40 MG TABLET PO (07:51)
[2024-01-30] MEDS: BUMETANIDE INJ 1 MG/4 ML VIAL 2 MG IV PUSH (07:55)
[2024-01-30] MEDS: MINERAL OIL/WHITE PETROLATUM OINTMENT 1 APPLIC EACH EYE ×2 (07:55→20:45)
[2024-01-30] MEDS: INSULIN GLARGINE (*BKC) 100 UNITS/ML 65 UNITS SUB-Q (07:56)
--- NOTE | 2024-01-30 07:58 | P.PNINT_ITS ---
Progress Note: A&P Assessment and Plan (1) Acute respiratory failure: Code(s): J96.00 - Acute respiratory failure, unspecified whether with hypoxia or hypercapnia Status: Acute Assessment and Plan: Acute Respiratory failure secondary to pneumonia and PE. Patient appears to have developed ARDS Patient had became CPAP dependent 100% FiO2. Forty of Lasix given IV last night without any significant improvement. Patient does not have any edema on lower extremity suggestive of heart failure. Echo reviewed. 01/20 patient intubated for discussion with the patient and her daughter. ABG reviewed and low tidal volume ventilation. PEEP set at 12 tidal volume at 300 mL. FiO2 is 100%. Increase respiratory rate to 26 Post intubation patient was coughing and gagging leading to desaturation hence was given rocuronium. Patient was started on Nimbex infusion along with sedation at this time. Patient was placed in prone position 01/21 patient was switched to supine position around 2:00 a.m.. She is a 70% FiO2 and 12 of PEEP 01/22 on 55% FiO2 and 12 of PEEP. ABG reviewed. Decrease respiratory rate to 24. Continue to wean FiO2. CT scan done yesterday showed IMPRESSION: Worsening respiratory status with bibasilar consolidation and interstitial thickening with patchy groundglass opacification bilaterally -findings suggesting ARDS. 01/23 overnight patient had increased oxygen requirement. Yesterday morning neuromuscular yasemin infusion was discontinued but patient later was a synchronous with the ventilator with coughing and gagging. Sedation was increased but did not fix the problem patient desaturated. Nimbex infusion was restarted. This morning she is on 70% FiO2 and Wean FiO2 to 65% this morning Status post steroids for pneumonia and ARDS Status post Nimbex 01/24 continues to be on mechanical ventilation and is on 70% FiO2 and 12 of PEEP. I will increase the PEEP to 14. 01/25 Chest x-ray reviewed and does not show any significant change and shows stable diffuse lung disease Continue Low tidal volume ventilation and permissive hypercapnia and permissive respiratory acidosis 01/25: Started dialysis with removal of 1066 mL in fluid removal -remains on CMV mode of ventilation, peep of 10 and 40% FiO2, -Continue Bronchodilators -chest x-ray and ABGs reviewed 01/28: Diuresed well with Bumex with-1400 mL in fluid balance 01/29: Discussed with Nephrology, will diurese again today and hold dialysis Will wean fentanyl and Versed and start Precedex (2) Septic shock: Code(s): A41.9 - Sepsis, unspecified organism; R65.21 - Severe sepsis with septic shock Status: Acute Assessment and Plan: Secondary to pneumonia 01/17: Patient presented with hypotension, elevated lactic acid levels, fevers, cough, hypoxia -received 30 mL/kg IV fluids -started on Levophed via femoral central line - Off IV fluids vasopressors now -01/17: Blood cultures have been obtained and negative till now MRSA screen negative Urine pneumococcal antigen negative Urine Legionella antigen pending Influenza RSV and COVID PCR negative 01/22: Sputum cultures growing MRSA, -continue vancomycin 01/26 Flagyl and ceftriaxone discontinued 01/28: Patient has been febrile with a T-max of 101.3?, 01/28: Blood, urine, sputum cultures have been obtained and pending (3) Community acquired pneumonia: Qualifiers: Laterality: left Lung location: lower lobe of lung Qualified Code(s): J18.9 - Pneumonia, unspecified organism Code(s): J18.9 - Pneumonia, unspecified organism Status: Acute Assessment and Plan: See above (4) Diabetes: Code(s): E11.9 - Type 2 diabetes mellitus without complications Status: Acute Assessment and Plan: Uncontrolled Continue Accu-Cheks and sliding scale insulin Continue Lantus (5) Acute kidney injury: Code(s): N17.9 - Acute kidney failure, unspecified Status: Acute Assessment and Plan: Patient initially presented with Acute kidney injury likely related to hypotension, septic shock She was adequately fluid-resuscitated and came off of IV fluids Creatinine normalized initially Patient did receive contrast for CTA Creatinine increased post intubation. 01/22 Lasix IV x1 Patient was given 25% albumin and will give 5% albumin. Will avoid liberal fluids due to patient's respiratory status. Patient is positive her I/O balance 01/25: Creatinine continues to increase along with elevated BUN today. Urine output also decreasing. Dr Dunbar discussed with nephrology and family will plan to initiate dialysis. Temporary dialysis catheter placed after obtaining consent from patient's family. Discussed with nephrology. Debt Recovery Officer will arrange for dialysis 01/25: Started dialysis with 1066 mL in fluid removal 01/26: Dialysis with 883 mL in fluid removal 01/27: Dialysis with 3000 mL in fluid removal 01/28: Diuresed with Bumex with good urine output and -1400 mL in fluid balance (6) Pulmonary embolism: Code(s): I26.99 - Other pulmonary embolism without acute cor pulmonale Status: Acute Assessment and Plan: Venous Dopplers negative 01/26: Heparin infusion is being held due to anemia and hematuria and drop in hemoglobin -will continue to monitor hemoglobin levels, if remains stable, may start Lovenox 1 mg/kg daily starting 01/27 01/27: Hemoglobin 7.0 this morning, will continue to hold anticoagulation, status post 1 unit of packed RBC 01/17: CT chest abdomen and pelvis IMPRESSION: Nonocclusive acute subsegmental pulmonary embolus in the left lower lobe. Very small clot burden. No evidence of right heart strain. Left lower lobe pneumonia. Mild hepatomegaly. Possible cystitis. Otherwise, no acute abdominopelvic process detected. Echo Summary 1. Left ventricular systolic function is normal, estimated at 55-60%. 2. There is mildly increased left ventricular wall thickness. 3. The left ventricular diastolic function is grade I diastolic dysfunction. 4. There is trace mitral valve regurgitation. 5. There is trace tricuspid valve regurgitation. 6. No pulmonary hypertension, estimated pulmonary arterial systolic pressure is 41 mmHg. 7. Right ventricular systolic function is normal. 8. Right ventricular chamber dimension is normal. (7) Electrolyte abnormality: Code(s): E87.8 - Other disorders of electrolyte and fluid balance, not elsewhere classified Status: Acute Assessment and Plan: Sodium levels have improved -continue tube feed flushes (8) Diverticulitis: Code(s): K57.92 - Diverticulitis of intestine, part unspecified, without perforation or abscess without bleeding Status: Acute Assessment and Plan: CT abdomen pelvis showed Mural thickening within the rectosigmoid colon with multiple diverticula and prominence of the vasa recta, possibly early diverticulitis. Interval development of perihepatic fluid, compared with previous study. Status post ceftriaxone and Flagyl (9) Ileus: Code(s): K56.7 - Ileus, unspecified Status: Acute Assessment and Plan: Patient has been having high tube feed residuals, Reglan was started on 01/26/2024. Patient tolerating tube feeds better. Has been having bowel movements -01/28: tube feeds have been switched to Nepro on 01/27, currently at goal, positive bowel movements (10) Anemia: Code(s): D64.9 - Anemia, unspecified Status: Acute Assessment and Plan: Patient's hemoglobin has gradually trended down over last 4-5 days. She is on heparin infusion for PE. There has been no evidence of bleeding. Continue monitor this time. Transfuse if hemoglobin less than 7. Platelets are at acceptable level. She is also on aspirin Plavix for coronary disease She is on Protonix twice a day 01/26: Hemoglobin dropped to 7.1, will hold heparin infusion. Monitor hemoglobin levels and if the improved restart either heparin infusion or Lovenox 1 mg/kg daily 01/27: Hemoglobin 7.0 this morning, status post 1 unit of packed RBCs with hemodialysis, continue to hold anticoagulation 01/29: Hemoglobin slowly drifting down, will continue to monitor Plan DVT prophylaxis: Heparin infusion has been stopped due to drop in hemoglobin, continue SCDs Stress ulcer prophylaxis: Protonix IV q.12 hours Nutrition: On Nepro, tube feeds at goal Code Status: 01/20 Dr Dunbar spoke to patient prior to intubation about cold and goals of care. She stated that she would like 1-2 rounds of resuscitation in case of cardiac arrest to see if she can be brought back but does not want prolonged resuscitation efforts. She also states that if she is unable to come off the ventilator in 2 weeks time she would not want a feeding tube and tracheostomy for long-term mechanical ventilation. Patient's daughter was at bedside and in agreement with patient's wishes Critical Care Time Spent: 33 minutes Discussed with patient's family and updated with her condition and plan of care. I answered all the questions Due to a high probability of clinically significant, life threatening deterioration, the patient required my highest level of preparedness to intervene emergently and I personally spent this critical care time directly and personally managing the patient. This critical care time included obtaining a history; examining the patient; pulse oximetry; ordering and review of studies; arranging urgent treatment with development of a management plan; evaluation of patient's response to treatment; frequent reassessment; and discussions with other providers. It was exclusive of separately billable procedures and treating other patients and teaching time. Please see Assessment and Plan section and the rest of the note for further information on patient assessment and treatment This dictation may have been done utilizing a voice recognition system. Attempts have been made to correct errors. However, there may be uncorrected grammatical, spelling, and recognitions errors present. Subjective Date/time seen: 01/30/24 07:58 Interval history: 68yo female with HTN, CHF, DM and HLD with PE pneumonia acute respiratory failure ARDS acute kidney injury 01/30/2024: Patient seen and examined the ICU, remains intubated on CMV mode of ventilation, peep of 10, 40% FiO2, sedated with fentanyl and Versed infusion, does not open eyes or follow simple commands. Does low to pain in all extremities. Patient diuresed well yesterday with Bumex with -1434 mL in fluid balance. Continues to have fevers with T-max of 100.7?. Is hemodynamically stable Review of Systems Review of Systems: ROS unobtainable: Yes unobtainable due to endotracheal tube, unobtainable due to medical condition and unobtainable due to mental status Exam Narrative: General: Patient is intubated, sedated in no acute distress HEENT:? Pupils equal and reactive, sclerae sclera, ET tube in place Neck:? Supple Respiratory:? Coarse breath sounds bilaterally no wheezing, adequate air entry Cardiac:? S1-S2 was normal, regular rate and rhythm Abdomen:? Soft, non distended, no tenderness, hypoactive bowel sounds, Extremities:? No edema, palpable pedal pulses Neuro:? Patient is intubated, sedated, does not open her eyes to name or follow simple commands. Withdraws to pain in all extremities Skin:? Warm and dry Objective Data Vital Signs Vital Signs: Vital Signs - 24 hr 01/29/24 08:09 01/29/24 08:00 01/29/24 08:00 Temperature Pulse Rate 70 70 Respiratory Rate 26 H 26 H Blood Pressure Pulse Oximetry 96 Oxygen Delivery Mechanical Ventilation Fraction of Inspired Oxygen 40 40 01/29/24 08:00 01/29/24 08:00 01/29/24 10:02 Temperature 100.3 F H Pulse Rate 70 65 66 Respiratory Rate 22 H 26 H 26 H Blood Pressure 113/50 L Pulse Oximetry 96 Oxygen Delivery Fraction of Inspired Oxygen 01/29/24 08:00 01/29/24 10:02 01/29/24 11:09 Temperature 100.9 F H Pulse Rate 65 66 Respiratory Rate 26 H 26 H Blood Pressure Pulse Oximetry Oxygen Delivery Fraction of Inspired Oxygen 01/29/24 08:00 01/29/24 10:00 01/29/24 10:00 Temperature 100.7 F H Pulse Rate 71 66 68 Respiratory Rate 24 H Blood Pressure 104/44 L Pulse Oximetry 95 Oxygen Delivery Fraction of Inspired Oxygen 01/29/24 10:46 01/29/24 11:54 01/29/24 12:05 Temperature 100.9 F H Pulse Rate 82 69 68 Respiratory Rate 26 H 26 H Blood Pressure 116/47 L Pulse Oximetry 95 95 Oxygen Delivery Mechanical Ventilation Fraction of Inspired Oxygen 40 01/29/24 12:05 01/29/24 12:19 01/29/24 12:00 Temperature 100.8 F H Pulse Rate 68 69 Respiratory Rate 26 H 26 H Blood Pressure Pulse Oximetry 95 Oxygen Delivery Mechanical Ventilation Fraction of Inspired Oxygen 40 01/29/24 12:00 01/29/24 12:00 01/29/24 14:03 Temperature Pulse Rate 66 74 Respiratory Rate Blood Pressure Pulse Oximetry 97 Oxygen Delivery Mechanical Ventilation Fraction of Inspired Oxygen 40 40 01/29/24 14:03 01/29/24 14:05 01/29/24 14:05 Temperature Pulse Rate 74 74 74 Respiratory Rate 26 H 26 H 26 H Blood Pressure Pulse Oximetry Oxygen Delivery Fraction of Inspired Oxygen 01/29/24 14:00 01/29/24 14:01 01/29/24 14:28 Temperature 100.5 F H Pulse Rate 74 72 75 Respiratory Rate 26 H 26 H Blood Pressure 120/49 L Pulse Oximetry 94 Oxygen Delivery Fraction of Inspired Oxygen 01/29/24 15:49 01/29/24 16:02 01/29/24 16:02 Temperature 100.4 F H Pulse Rate 77 90 90 Respiratory Rate 26 H 26 H 26 H Blood Pressure 115/52 L Pulse Oximetry 94 Oxygen Delivery Fraction of Inspired Oxygen 01/29/24 16:00 01/29/24 16:00 01/29/24 16:53 Temperature Pulse Rate 90 77 Respiratory Rate 26 H Blood Pressure Pulse Oximetry 94 92 Oxygen Delivery Mechanical Ventilation Mechanical Ventilation Fraction of Inspired Oxygen 40 40 40 01/29/24 16:00 01/29/24 17:51 01/29/24 17:52 Temperature 100.1 F H Pulse Rate 75 77 Respiratory Rate 26 H Blood Pressure Pulse Oximetry Oxygen Delivery Fraction of Inspired Oxygen 01/29/24 17:52 01/29/24 18:00 01/29/24 18:00 Temperature 100.2 F H Pulse Rate 77 68 68 Respiratory Rate 26 H 26 H Blood Pressure 131/53 L Pulse Oximetry 91 Oxygen Delivery Fraction of Inspired Oxygen 01/29/24 18:51 01/29/24 20:00 01/29/24 20:00 Temperature 100 F H Pulse Rate 69 69 Respiratory Rate 26 H 26 H Blood Pressure Pulse Oximetry Oxygen Delivery Fraction of Inspired Oxygen 01/29/24 21:15 01/29/24 21:15 01/29/24 20:00 Temperature Pulse Rate 95 95 Respiratory Rate 26 H 26 H Blood Pressure Pulse Oximetry Oxygen Delivery Fraction of Inspired Oxygen 40 01/29/24 20:00 01/29/24 20:00 01/29/24 20:00 Temperature 100.1 F H Pulse Rate 70 68 Respiratory Rate 26 H Blood Pressure 121/50 L Pulse Oximetry 93 Oxygen Delivery Mechanical Ventilation Fraction of Inspired Oxygen 40 01/29/24 22:00 01/29/24 22:16 01/29/24 22:00 Temperature 100.1 F H 100.1 F H Pulse Rate 93 80 93 Respiratory Rate 26 H 26 H 26 H Blood Pressure 176/69 H 135/51 L Pulse Oximetry 94 100 Oxygen Delivery Fraction of Inspired Oxygen 01/29/24 22:00 01/29/24 22:00 01/30/24 00:00 Temperature Pulse Rate 93 93 68 Respiratory Rate 26 H 26 H Blood Pressure Pulse Oximetry Oxygen Delivery Fraction of Inspired Oxygen 01/30/24 00:00 01/30/24 00:00 01/30/24 00:00 Temperature Pulse Rate 68 Respiratory Rate 26 H Blood Pressure Pulse Oximetry Oxygen Delivery Mechanical Ventilation Fraction of Inspired Oxygen 40 40 01/30/24 00:00 01/30/24 00:00 01/29/24 19:55 Temperature 100.2 F H Pulse Rate 68 68 68 Respiratory Rate 26 H Blood Pressure 111/49 L Pulse Oximetry 95 93 Oxygen Delivery Mechanical Ventilation Fraction of Inspired Oxygen 40 01/29/24 19:55 01/30/24 02:14 01/29/24 23:08 Temperature Pulse Rate 68 85 72 Respiratory Rate 26 H Blood Pressure Pulse Oximetry 92 95 Oxygen Delivery Mechanical Ventilation Mechanical Ventilation Fraction of Inspired Oxygen 40 40 01/29/24 20:05 01/30/24 02:14 01/30/24 02:23 Temperature Pulse Rate 70 85 83 Respiratory Rate 26 H 27 H 26 H Blood Pressure Pulse Oximetry Oxygen Delivery Fraction of Inspired Oxygen 01/30/24 02:00 01/30/24 04:00 01/30/24 02:00 Temperature Pulse Rate 91 66 91 Respiratory Rate 26 H 26 H 26 H Blood Pressure Pulse Oximetry Oxygen Delivery Fraction of Inspired Oxygen 01/30/24 04:00 01/30/24 05:05 01/30/24 06:00 Temperature Pulse Rate 66 83 88 Respiratory Rate 26 H 26 H Blood Pressure Pulse Oximetry 95 Oxygen Delivery Mechanical Ventilation Fraction of Inspired Oxygen 40 01/30/24 06:00 01/30/24 06:00 01/30/24 06:00 Temperature Pulse Rate 88 88 88 Respiratory Rate 26 H 26 H 26 H Blood Pressure Pulse Oximetry Oxygen Delivery Fraction of Inspired Oxygen 01/30/24 02:00 01/30/24 02:30 01/30/24 02:00 Temperature 100.4 F H Pulse Rate 91 74 91 Respiratory Rate 26 H Blood Pressure 182/57 H 139/45 L Pulse Oximetry 93 90 Oxygen Delivery Fraction of Inspired Oxygen 01/30/24 04:00 01/30/24 04:00 01/30/24 04:00 Temperature Pulse Rate 66 Respiratory Rate Blood Pressure Pulse Oximetry Oxygen Delivery Mechanical Ventilation Fraction of Inspired Oxygen 40 40 01/30/24 04:00 01/30/24 06:00 01/30/24 06:00 Temperature 100.7 F H 99.9 F H Pulse Rate 65 88 88 Respiratory Rate 26 H 26 H Blood Pressure 101/46 L 179/74 H Pulse Oximetry 95 92 Oxygen Delivery Fraction of Inspired Oxygen 01/30/24 07:21 01/30/24 07:22 01/30/24 07:49 Temperature 100.5 F H Pulse Rate 95 95 70 Respiratory Rate 26 H 26 H 26 H Blood Pressure 114/47 L Pulse Oximetry 93 Oxygen Delivery Fraction of Inspired Oxygen Intake/Output Intake/Output: Intake & Output 01/27/24 01/28/24 01/29/24 01/30/24 23:59 23:59 23:59 23:59 Intake Total 2010.5 1968.9 1565.7 725.4 Output Total 2083 4450 3000 1350 Balance -72.5 -2481.1 -1434.3 -624.6 Meds/Results Medications: Active Medications Generic Name Dose Route Start Last Admin Trade Name Freq PRN Reason Stop Dose Admin Acetaminophen 650 mg 01/20/24 10:08 01/29/24 17:51 Acetaminophen 325 Mg Tablet PO 650 mg Q4H PRN Administration Mild Pain (1-3) or Fever Acetylcysteine 200 mg 01/28/24 14:00 01/30/24 02:14 Acetylcysteine 20% Inhal Soln 800 Mg/4 Ml Vial INHALATION 200 mg Q6HRT EDMOND Administration Albuterol/Ipratropium 3 ml 01/22/24 14:00 01/30/24 02:14 Ipratropium 0.5 Mg/Albuterol Sulfate 2.5 Mg Ampul.Neb 3 Ml INHALATION 3 ml Q6HRT EDMOND Administration Aspirin 81 mg 01/19/24 08:00 01/30/24 07:50 Aspirin 81 Mg Chewable Tablet PO 81 mg DAILY@0800 EDMOND Administration Atorvastatin Calcium 40 mg 01/19/24 09:00 01/30/24 07:51 Atorvastatin 40 Mg Tablet PO 40 mg DAILY EDMOND Administration Clopidogrel Bisulfate 75 mg 01/19/24 09:00 01/30/24 07:51 Clopidogrel Bisulfate 75 Mg Tablet PO 75 mg DAILY EDMOND Administration Dextrose 12.5 gm 01/18/24 23:28 Dextrose 50% 25 Gm/50 Ml Syringe IV PUSH PRN PRN Hypoglycemia Protocol Glucagon 1 mg 01/18/24 23:28 Glucagon For Inj 1 Mg Vial IM PRN PRN Hypoglycemia Protocol Glucose 15 gm 01/18/24 23:28 Glucose Oral Gel 15 Gm Of Glucse In 37.5 Gm Tube PO PRN PRN Hypoglycemia Protocol Heparin Sodium (Porcine) 4,500 units 01/18/24 23:25 01/26/24 17:28 Heparin Sodium 5,000 Units/Ml Vial IV PUSH 4,500 units PRN PRN Administration aPTT less than 55 seconds Heparin Sodium (Porcine) 2,500 units 01/18/24 23:25 01/24/24 06:17 Heparin Sodium 5,000 Units/Ml Vial IV PUSH 2,500 units PRN PRN Administration aPTT 55 - 70 seconds Heparin Sodium/Dextrose 25,000 units in 250 mls @ 0 mls/hr 01/18/24 23:25 01/27/24 14:00 Heparin Sodium/D5w 100 Units/Ml IV CONT Infused .Q0M EDMOND Titration Protocol 0 UNITS/HR Dextrose 1,000 mls @ 100 mls/hr 01/18/24 23:28 Dextrose 5% 1,000 Ml IVPB PRN PRN Hypoglycemia Protocol Fentanyl Citrate 2,500 mcg in 250 mls @ 10 mls/hr 01/21/24 07:40 01/30/24 07:22 Fentanyl 2,500 Mcg/Ns 250 Ml IV CONT 100 mcg/hr .Q25H EDMOND 10 mls/hr Titration Protocol 100 MCG/HR Midazolam HCl 100 mg in 100 mls @ 4 mls/hr 01/21/24 07:40 01/30/24 07:21 Versed 100 Mg/Ns 100 Ml IV CONT 4 mg/hr .Q25H EDMOND 4 mls/hr Titration Protocol 4 MG/HR Norepinephrine Bitartrate 8 mg in 250 mls @ 9.375 mls/hr 01/22/24 08:05 01/30/24 06:05 Levophed 8 Mg/D5w 250 Ml IV CONT Not Given .Q24H EDMOND Protocol 5 MCG/MIN Insulin Human Regular 100 100 mls @ 1 mls/hr 01/23/24 08:15 01/25/24 22:11 units/ Sodium Chloride IV CONT Not Given .Q24H EDMOND Protocol 1 UNITS/HR Albumin Human 50 mls @ 999 mls/hr 01/26/24 11:40 01/27/24 09:51 Albutein IVPB 02/25/24 11:39 999 mls/hr Q10M PRN Administration HYPOTENSION Potassium Chloride 100 mls @ 25 mls/hr 01/30/24 07:16 01/30/24 07:50 Kcl 40 Meq/Water 100 Ml IVPB 01/30/24 11:15 25 mls/hr ONCE ONE Administration Magnesium Sulfate 2 gm in 50 mls @ 50 mls/hr 01/30/24 07:16 01/30/24 07:50 Magnesium Sulf 2 Gm/Water 50ml IVPB 01/30/24 08:15 50 mls/hr ONCE ONE Administration Insulin Aspart 4 - 8 units 01/19/24 12:00 01/30/24 04:47 Insulin Aspart (*Bkc) 100 Units/Ml SUB-Q Not Given Q4H EDMOND Protocol Insulin Glargine 65 units 01/26/24 09:00 01/29/24 08:53 Insulin Glargine (*Bkc) 100 Units/Ml SUB-Q 65 units QAM EDMOND Administration Levothyroxine Sodium 112 mcg 01/19/24 06:30 01/30/24 06:03 Levothyroxine Sodium 112 Mcg Tablet PO 112 mcg DAILY@0630 EDMOND Administration Midazolam HCl 2 mg 01/21/24 07:40 01/30/24 07:20 Midazolam Hcl (*Crx) 2 Mg/2 Ml Vial IV PUSH 2 mg Q5M PRN Administration ventilator asynchrony Midazolam HCl 4 mg 01/21/24 09:35 01/26/24 05:58 Midazolam Hcl (*Crx) 2 Mg/2 Ml Vial IV PUSH 4 mg PRN PRN Administration Sedation Multi-Ingred Cream/Lotion/Oil/Oint 1 applic 01/21/24 09:00 01/29/24 20:11 Mineral Oil/White Petrolatum Ointment EACH EYE 1 applic Q12HR EDMOND Administration Ondansetron HCl 4 mg 01/18/24 22:13 Ondansetron Inj 4 Mg/2 Ml Vial IV PUSH Q4H PRN Nausea Pantoprazole Sodium 40 mg 01/19/24 09:00 01/30/24 07:51 Pantoprazole Sodium Iv 40 Mg Vial IV PUSH 40 mg Q12HR EDMOND Administration Polyethylene Glycol 17 gm 01/29/24 10:19 Polyethylene Glycol 3350 17 Gm Powd.Pack PO QAM PRN Constipation Vancomycin HCl 1 each 01/26/24 11:43 Vancomycin For Hemodialysis IVPB PRN PRN Vancomycin Protocol Radiology Results: ITS Impressions Chest/Abdomen/Pelvis CTA 01/18/24 18:30 IMPRESSION: Nonocclusive acute subsegmental pulmonary embolus in the left lower lobe. Very small clot burden. No evidence of right heart strain. Left lower lobe pneumonia. Mild hepatomegaly. Possible cystitis. Otherwise, no acute abdominopelvic process detected. Head CT 01/19/24 05:47 Impression: No intracranial hemorrhage, mass, or acute infarct. Atrophy and chronic white matter changes, as above. Venous Doppler Study 01/19/24 15:06 IMPRESSION: Negative bilateral lower extremity venous US. No deep vein thrombosis. Chest/Abdomen/Pelvis CT 01/22/24 12:43 IMPRESSION: Worsening respiratory status with bibasilar consolidation and interstitial thickening with patchy groundglass opacification bilaterally -findings suggesting ARDS. Mural thickening within the rectosigmoid colon with multiple diverticula and prominence of the vasa recta, possibly early diverticulitis. Interval development of perihepatic fluid, compared with previous study. Renal Ultrasound 01/24/24 12:05 IMPRESSION: 1. Normal kidneys without hydronephrosis. Abdomen X-Ray 01/25/24 14:53 IMPRESSION: NG tube in distal stomach Nonspecific abdomen Chest X-Ray 01/30/24 06:23 IMPRESSION: Diffuse mildly increased bilateral pulmonary infiltrates since 01/29/2024 Labs Labs: Laboratory Results - last 24 hr 01/29/24 01/29/24 01/29/24 08:27 12:05 15:39 WBC RBC Hgb Hct MCV MCH MCHC RDW Plt Count MPV Immature Gran % (Auto) Neut % (Auto) Lymph % (Auto) Woodson % (Auto) Eos % (Auto) Baso % (Auto) Lymph # (Auto) Woodson # (Auto) Eos # (Auto) Baso # (Auto) Abs Immat Gran (auto) Absolute Neuts (auto) Absolute Nucleated RBC Nucleated RBC % Platelet Estimate Hypochromasia Anisocytosis Target Cells Ovalocytes Schistocytes Puncture Site ABG pH ABG pCO2 ABG pO2 ABG PO2/FiO2 Ratio ABG HCO3 ABG O2 Saturation ABG O2 Content ABG Base Excess A-a Gradient Oxyhemoglobin Carboxyhemoglobin Methemoglobin Reduced Hemoglobin Total Hemoglobin O2 Delivery Device O2 Liters/Min Minute Volume Vent Rate Vent Mode FiO2 Tidal Volume PEEP Peak Inspir Pressure Pressure Support Sodium Potassium Chloride Carbon Dioxide Anion Gap BUN Creatinine Estim Creat Clear Calc Estimated GFR Glucose POC Capillary Glucose 174 H 228 H 148 H Calcium Phosphorus Magnesium Total Bilirubin AST ALT Alkaline Phosphatase Total Protein Albumin 01/29/24 01/30/24 01/30/24 20:06 00:17 04:32 WBC RBC Hgb Hct MCV MCH MCHC RDW Plt Count MPV Immature Gran % (Auto) Neut % (Auto) Lymph % (Auto) Woodson % (Auto) Eos % (Auto) Baso % (Auto) Lymph # (Auto) Woodson # (Auto) Eos # (Auto) Baso # (Auto) Abs Immat Gran (auto) Absolute Neuts (auto) Absolute Nucleated RBC Nucleated RBC % Platelet Estimate Hypochromasia Anisocytosis Target Cells Ovalocytes Schistocytes Puncture Site ABG pH ABG pCO2 ABG pO2 ABG PO2/FiO2 Ratio ABG HCO3 ABG O2 Saturation ABG O2 Content ABG Base Excess A-a Gradient Oxyhemoglobin Carboxyhemoglobin Methemoglobin Reduced Hemoglobin Total Hemoglobin O2 Delivery Device O2 Liters/Min Minute Volume Vent Rate Vent Mode FiO2 Tidal Volume PEEP Peak Inspir Pressure Pressure Support Sodium Potassium Chloride Carbon Dioxide Anion Gap BUN Creatinine Estim Creat Clear Calc Estimated GFR Glucose POC Capillary Glucose 185 H 232 H 187 H Calcium Phosphorus Magnesium Total Bilirubin AST ALT Alkaline Phosphatase Total Protein Albumin 01/30/24 01/30/24 04:38 05:05 WBC 17.6 H RBC 2.68 L Hgb 8.4 L Hct 27.3 L MCV 101.9 H MCH 31.3 MCHC 30.8 L RDW 15.9 H Plt Count 294 MPV 11.5 H Immature Gran % (Auto) 6.7 H Neut % (Auto) 76.8 H Lymph % (Auto) 10.6 L Woodson % (Auto) 4.4 Eos % (Auto) 1.0 Baso % (Auto) 0.5 Lymph # (Auto) 1.87 Woodson # (Auto) 0.8 H Eos # (Auto) 0.2 Baso # (Auto) 0.1 Abs Immat Gran (auto) 1.18 H Absolute Neuts (auto) 13.5 H Absolute Nucleated RBC 0.060 H Nucleated RBC % 0.3 H Platelet Estimate Adequate Hypochromasia 1+ Anisocytosis 1+ Target Cells 1+ Ovalocytes 1+ Schistocytes None seen Puncture Site Right radial ABG pH 7.503 H* ABG pCO2 34.0 L ABG pO2 76.1 L ABG PO2/FiO2 Ratio 1.90 ABG HCO3 26.1 H ABG O2 Saturation 96.4 ABG O2 Content 13.4 L ABG Base Excess 3.1 A-a Gradient 170.0 Oxyhemoglobin 94.9 Carboxyhemoglobin 0.4 Methemoglobin 0.3 Reduced Hemoglobin 4.4 Total Hemoglobin 10.0 L O2 Delivery Device Ventilator O2 Liters/Min Not Reportable Minute Volume Not Reportable Vent Rate 26 Vent Mode Cmv FiO2 40 Tidal Volume 360 PEEP 10 Peak Inspir Pressure Not Reportable Pressure Support Not Reportable Sodium 142 Potassium 3.2 L Chloride 105 Carbon Dioxide 30 Anion Gap 7 BUN 65 H Creatinine 1.60 H Estim Creat Clear Calc 28 Estimated GFR 32 L Glucose 182 H POC Capillary Glucose Calcium 8.9 Phosphorus 4.2 Magnesium 1.8 Total Bilirubin 0.9 AST 42 H ALT 25 Alkaline Phosphatase 115 Total Protein 7.0 Albumin 3.5
[2024-01-30] MEDS: dexmedeTOMIDine 400 MCG/100 ML 400 MCG/100 ML BAG IV CONT (09:00)
[2024-01-30 09:16] LABS: Glucose Point of Care 249 mg/dl (65-105)
[2024-01-30] MEDS: VANCOMYCIN 1,250 MG/NS 250 ML 1,250 MG/250 ML BAG 166.67 MG IVPB (09:47)
--- NOTE | 2024-01-30 10:02 | P.PNNP_ITS ---
Progress Note: A&P Assessment and Plan (1) Acute kidney injury: Code(s): N17.9 - Acute kidney failure, unspecified Status: Acute Assessment and Plan: * initial improvement on admission (from 1.5mg/dl to 0.9mg/dl) * then worsening again noted on 01/21 (up to 1.3mg/dl and subsequently 2.3mg/dl on 01/22) * suspect multifactorial etiology: * contrast exposure * infection/sepsis * hemodynamic instability/shock * possible prerenal factors * diuretic use prior to admission * hypoxia * other(?) * evaluation to date noted: * CPK mildly elevated * UA with blood/protein and possible infection * urine electrolytes prerenal * moderate proteinuria * renal ultrasound w/o obstruction * giving worsening BUN and worsening respiratory status, initiated on dialysis on 01/25 * HD on 01/26 * DUF on 01/27 * holding HD today * good UOP response to IV bumex on 01/28 * repeat bumex 2mg IV x 1 today * follow trend of repeat labs and UOP for possible renal recovery (2) Acute respiratory failure: Code(s): J96.00 - Acute respiratory failure, unspecified whether with hypoxia or hypercapnia Status: Acute Assessment and Plan: * thought to be secondary to a combination of pneumonia and pulmonary embolus +/- pulmonary edema * appears to have progressed to ARDS * intubated and placed on mechanical ventilation on 01/20 * recent CT of chest noted * was requiring paralytics with sedation * on bronchodilator therapy and antibiotics * fluid removal with dialysis as tolerated * repeat IV diuretics today * ventilator weaning when able (3) Septic shock: Code(s): A41.9 - Sepsis, unspecified organism; R65.21 - Severe sepsis with septic shock Status: Acute Assessment and Plan: * as noted on admission - hypotension, lactic acidosis, fevers, and hypoxia/respiratory failure * presumed source = pneumonia +/- diverticulitiis * s/p IVF resuscitation and vasopressor support (weaned off currently) * follow culture data * on antibiotic therapy (4) Community acquired pneumonia: Qualifiers: Laterality: left Lung location: lower lobe of lung Qualified Code(s): J18.9 - Pneumonia, unspecified organism Code(s): J18.9 - Pneumonia, unspecified organism Status: Acute Assessment and Plan: * based on evidence to date * viral swab for RSV/COVID/influenza negative * follow culture data * on antibiotics (5) Pulmonary embolism: Code(s): I26.99 - Other pulmonary embolism without acute cor pulmonale Status: Acute Assessment and Plan: * admission CTA of chest with nonocclusive acute subsegmental PE in the left lower lobe with small clot burden * venous dopplers negative * anticoagulation currently on hold due low H/H (6) Diverticulitis: Code(s): K57.92 - Diverticulitis of intestine, part unspecified, without perforation or abscess without bleeding Status: Acute Assessment and Plan: * CT abdomen pelvis with mural thickening within the rectosigmoid colon with multiple diverticula and prominence of the vasa recta, possibly early diverticulitis. 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 Subjective Date/time seen: 01/30/24 10:02 Interval history: Follow-up for acute kidney injury/acute renal failure. Remains intubated/sedated and on mechanical ventilation; good diuresis yesterday with use of IV bumex with relative stabllity in renal function/creatinine; still with on/off fevers with Tmax 100.7?; remains hemodynamically stable without the need for vasopressor therapy Exam Narrative: General: elderly but WD/WN female intubated/sedated and on mechanical ventilation Heart: normal S1 and S2; no rub Lungs: coarse breath sounds throughout Abdomen: soft, nontender, nondistended, positive bowel sounds Extremities: no cyanosis or clubbing; no edema Skin: warm and intact Objective Data Vital Signs Vital Signs: Vital Signs Temp Pulse Resp BP Pulse Ox O2 Del Method FiO2 01/30/24 10:00 100.0 F H 63 24 H 116/52 L 95 01/30/24 10:00 64 01/30/24 09:30 100.1 F H 65 22 H 101/45 L 96 01/30/24 09:11 82 22 H 01/30/24 09:00 77 22 H 01/30/24 08:50 74 22 H 01/30/24 08:21 73 22 H 01/30/24 08:21 73 96 Mechanical Ventilation 40 01/30/24 08:00 100.6 F H 72 26 H 101/44 L 94 01/30/24 08:00 74 01/30/24 08:00 40 01/30/24 08:00 Mechanical Ventilation 40 01/30/24 07:49 100.5 F H 70 26 H 114/47 L 93 01/30/24 07:22 95 26 H 01/30/24 07:21 95 26 H 01/30/24 06:00 99.9 F H 88 26 H 179/74 H 92 01/30/24 06:00 88 01/30/24 04:00 100.7 F H 65 26 H 101/46 L 95 01/30/24 04:00 40 01/30/24 04:00 Mechanical Ventilation 40 01/30/24 04:00 66 01/30/24 02:00 91 01/30/24 02:30 74 139/45 L 90 01/30/24 02:00 100.4 F H 91 26 H 182/57 H 93 01/30/24 06:00 88 26 H 01/30/24 06:00 88 26 H 01/30/24 06:00 88 26 H 01/30/24 06:00 88 26 H 01/30/24 05:05 83 95 Mechanical Ventilation 40 01/30/24 04:00 66 26 H 01/30/24 02:00 91 26 H 01/30/24 04:00 66 26 H 01/30/24 02:00 91 26 H 01/30/24 02:23 83 26 H 01/30/24 02:14 85 27 H 01/29/24 20:05 70 26 H 01/29/24 23:08 72 95 Mechanical Ventilation 40 01/30/24 02:14 85 92 Mechanical Ventilation 40 01/29/24 19:55 68 26 H 01/29/24 19:55 68 93 Mechanical Ventilation 40 01/30/24 00:00 68 01/30/24 00:00 100.2 F H 68 26 H 111/49 L 95 01/30/24 00:00 40 01/30/24 00:00 Mechanical Ventilation 40 01/30/24 00:00 68 26 H 01/30/24 00:00 68 26 H 01/29/24 22:00 93 01/29/24 22:00 93 26 H 01/29/24 22:00 93 26 H 01/29/24 22:16 100.1 F H 80 26 H 135/51 L 100 01/29/24 22:00 100.1 F H 93 26 H 176/69 H 94 01/29/24 20:00 Mechanical Ventilation 40 01/29/24 20:00 68 01/29/24 20:00 100.1 F H 70 26 H 121/50 L 93 01/29/24 20:00 40 01/29/24 21:15 95 26 H 01/29/24 21:15 95 26 H 01/29/24 20:00 69 26 H 01/29/24 20:00 69 26 H 01/29/24 18:51 100 F H 01/29/24 18:00 68 01/29/24 18:00 100.2 F H 68 26 H 131/53 L 91 01/29/24 17:52 77 26 H 01/29/24 17:52 77 26 H 01/29/24 17:51 100.1 F H 01/29/24 16:00 75 01/29/24 16:53 77 92 Mechanical Ventilation 40 01/29/24 16:00 40 01/29/24 16:00 90 26 H 94 Mechanical Ventilation 40 01/29/24 16:02 90 26 H 01/29/24 16:02 90 26 H 01/29/24 15:49 100.4 F H 77 26 H 115/52 L 94 Intake/Output Intake/Output: Intake & Output 01/27/24 01/28/24 01/29/24 01/30/24 23:59 23:59 23:59 23:59 Intake Total 2009.5 1968.9 1565.7 1127.9 Output Total 2083 4450 3000 1350 Balance -72.5 -2481.1 -1434.3 -222.1 Meds/Results Medications: Active Medications Generic Name Dose Route Start Last Admin Trade Name Freq PRN Reason Stop Dose Admin Acetaminophen 650 mg 01/20/24 10:08 01/30/24 14:09 Acetaminophen 325 Mg Tablet PO 650 mg Q4H PRN Administration Mild Pain (1-3) or Fever Acetylcysteine 200 mg 01/28/24 14:00 01/30/24 13:29 Acetylcysteine 20% Inhal Soln 800 Mg/4 Ml Vial INHALATION 200 mg Q6HRT EDMOND Administration Albuterol/Ipratropium 3 ml 01/22/24 14:00 01/30/24 13:29 Ipratropium 0.5 Mg/Albuterol Sulfate 2.5 Mg Ampul.Neb 3 Ml INHALATION 3 ml Q6HRT EDMOND Administration Aspirin 81 mg 01/19/24 08:00 01/30/24 07:50 Aspirin 81 Mg Chewable Tablet PO 81 mg DAILY@0800 EDMOND Administration Atorvastatin Calcium 40 mg 01/19/24 09:00 01/30/24 07:51 Atorvastatin 40 Mg Tablet PO 40 mg DAILY EDMOND Administration Clopidogrel Bisulfate 75 mg 01/19/24 09:00 01/30/24 07:51 Clopidogrel Bisulfate 75 Mg Tablet PO 75 mg DAILY EDMOND Administration Dextrose 12.5 gm 01/18/24 23:28 Dextrose 50% 25 Gm/50 Ml Syringe IV PUSH PRN PRN Hypoglycemia Protocol Glucagon 1 mg 01/18/24 23:28 Glucagon For Inj 1 Mg Vial IM PRN PRN Hypoglycemia Protocol Glucose 15 gm 01/18/24 23:28 Glucose Oral Gel 15 Gm Of Glucse In 37.5 Gm Tube PO PRN PRN Hypoglycemia Protocol Heparin Sodium (Porcine) 4,500 units 01/18/24 23:25 01/26/24 17:28 Heparin Sodium 5,000 Units/Ml Vial IV PUSH 4,500 units PRN PRN Administration aPTT less than 55 seconds Heparin Sodium (Porcine) 2,500 units 01/18/24 23:25 01/24/24 06:17 Heparin Sodium 5,000 Units/Ml Vial IV PUSH 2,500 units PRN PRN Administration aPTT 55 - 70 seconds Heparin Sodium/Dextrose 25,000 units in 250 mls @ 0 mls/hr 01/18/24 23:25 01/27/24 14:00 Heparin Sodium/D5w 100 Units/Ml IV CONT Infused .Q0M EDMOND Titration Protocol 0 UNITS/HR Dextrose 1,000 mls @ 100 mls/hr 01/18/24 23:28 Dextrose 5% 1,000 Ml IVPB PRN PRN Hypoglycemia Protocol Fentanyl Citrate 2,500 mcg in 250 mls @ 7.5 mls/hr 01/21/24 07:40 01/30/24 14:05 Fentanyl 2,500 Mcg/Ns 250 Ml IV CONT 75 mcg/hr .[id number] EDMOND 7.5 mls/hr Titration Protocol 75 MCG/HR Midazolam HCl 100 mg in 100 mls @ 0 mls/hr 01/21/24 07:40 01/30/24 14:00 Versed 100 Mg/Ns 100 Ml IV CONT 0 mg/hr .Q0M EDMOND 0 mls/hr Titration Protocol Norepinephrine Bitartrate 8 mg in 250 mls @ 9.375 mls/hr 01/22/24 08:05 01/30/24 06:05 Levophed 8 Mg/D5w 250 Ml IV CONT Not Given .Q24H EDMOND Protocol 5 MCG/MIN Insulin Human Regular 100 100 mls @ 1 mls/hr 01/23/24 08:15 01/25/24 22:11 units/ Sodium Chloride IV CONT Not Given .Q24H EDMOND Protocol 1 UNITS/HR Albumin Human 50 mls @ 999 mls/hr 01/26/24 11:40 01/27/24 09:51 Albutein IVPB 02/25/24 11:39 999 mls/hr Q10M PRN Administration HYPOTENSION Dexmedetomidine HCl 400 mcg in 100 mls @ 13.58 mls/hr 01/30/24 08:40 01/30/24 14:05 Precedex 400 Mcg/100 Ml IV CONT 0.7 mcg/kg/hr .Q7H22M EDMOND 13.58 mls/hr Titration Protocol 0.7 MCG/KG/HR Insulin Aspart 4 - 8 units 01/19/24 12:00 01/30/24 11:36 Insulin Aspart (*Bkc) 100 Units/Ml SUB-Q Not Given Q4H EDMOND Protocol Insulin Glargine 65 units 01/26/24 09:00 01/30/24 07:56 Insulin Glargine (*Bkc) 100 Units/Ml SUB-Q 65 units QAM EDMOND Administration Levothyroxine Sodium 112 mcg 01/19/24 06:30 01/30/24 06:03 Levothyroxine Sodium 112 Mcg Tablet PO 112 mcg DAILY@0630 EDMOND Administration Midazolam HCl 4 mg 01/21/24 09:35 01/26/24 05:58 Midazolam Hcl (*Crx) 2 Mg/2 Ml Vial IV PUSH 4 mg PRN PRN Administration Sedation Miscellaneous Information 1 each 01/30/24 00:01 Versed Iv Push Needs To Be Renewed Or It Will Automatically Discontinue. XX 02/29/24 00:00 CLARIFY EDMOND Multi-Ingred Cream/Lotion/Oil/Oint 1 applic 01/21/24 09:00 01/30/24 07:55 Mineral Oil/White Petrolatum Ointment EACH EYE 1 applic Q12HR EDMOND Administration Ondansetron HCl 4 mg 01/18/24 22:13 Ondansetron Inj 4 Mg/2 Ml Vial IV PUSH Q4H PRN Nausea Pantoprazole Sodium 40 mg 01/19/24 09:00 01/30/24 07:51 Pantoprazole Sodium Iv 40 Mg Vial IV PUSH 40 mg Q12HR EDMOND Administration Polyethylene Glycol 17 gm 01/29/24 10:19 Polyethylene Glycol 3350 17 Gm Powd.Pack PO QAM PRN Constipation Vancomycin HCl 1 each 01/30/24 09:16 Vancomycin For Acute Kidney Injury IVPB PRN PRN Vancomycin Protocol Radiology Results: ITS Impressions Chest/Abdomen/Pelvis CTA 01/18/24 18:30 IMPRESSION: Nonocclusive acute subsegmental pulmonary embolus in the left lower lobe. Very small clot burden. No evidence of right heart strain. Left lower lobe pneumonia. Mild hepatomegaly. Possible cystitis. Otherwise, no acute abdominopelvic process detected. Head CT 01/19/24 05:47 Impression: No intracranial hemorrhage, mass, or acute infarct. Atrophy and chronic white matter changes, as above. Chest/Abdomen/Pelvis CT 01/22/24 12:43 IMPRESSION: Worsening respiratory status with bibasilar consolidation and interstitial thickening with patchy groundglass opacification bilaterally -findings sugges ting ARDS. Mural thickening within the rectosigmoid colon with multiple diverticula and prominence of the vasa recta, possibly early diverticulitis. Interval development of perihepatic fluid, compared with previous study. Renal Ultrasound 01/24/24 12:05 IMPRESSION: 1. Normal kidneys without hydronephrosis. Abdomen X-Ray 01/25/24 14:53 IMPRESSION: NG tube in distal stomach Nonspecific abdomen Chest X-Ray 01/30/24 06:23 IMPRESSION: Diffuse mildly increased bilateral pulmonary infiltrates since 01/29/2024 Labs Labs: Laboratory Tests 01/30/24 04:38 01/30/24 04:38 Calcium 8.9 Phosphorus 4.2 Magnesium 1.8 Total Bilirubin 0.9 AST 42 H ALT 25 Alkaline Phosphatase 115 Total Protein 7.0 Albumin 3.5 Microbiology 01/29/24 09:15 Sputum Sputum Culture - Preliminary 01/29/24 08:25 Blood Blood Culture - Preliminary 01/29/24 08:24 Blood Blood Culture - Preliminary
--- NOTE | 2024-01-30 10:50 | PCNFU ---
Nutrition Follow-Up Complete: Inadequate energy intake related to NPO as evidenced by mechanical ventilation Goal: Meet estimated needs Patient is progressing towards goal. No new goal. Pt current nutrition is Nepro at 40 ml/hr. Last recorded weight is 77.6 kg, up from 72 kg on admit. Bowel Motility: FMS Labs Reviewed:Glu 182, Cr 1.6, BUN 65, K 3.2 Meds Noted: Versed, Fentanyl, Precedex, Lantus, NovoLog, Protonix. Skin: WNL Additional Notes: Patient remains on mechanical vent. Tube feedings are being tolerating of Nepro at 40 ml/hr providing 1584 kcal/71 gm protein/ 570 ml water. Flush 75 ml q 4 hours. Agree with diet orders. Last Dialysis treatment 01/27.Nephrology is following. Monitor tube feeding initiation, tolerance, wt, labs. Follow daily in ICU rounds and follow up every Friday and Friday.
[2024-01-30 11:37] LABS: Glucose Point of Care 196 mg/dl (65-105)
[2024-01-30] MEDS: ACETAMINOPHEN 325 MG TABLET 650 MG PO ×2 (14:09→18:09)
[2024-01-30 15:53] LABS: Glucose Point of Care 219 mg/dl (65-105)
--- NOTE | 2024-01-30 16:31 | P.PNIM_ITS ---
Progress Note: A&P Assessment and Plan (1) Acute respiratory failure: Code(s): J96.00 - Acute respiratory failure, unspecified whether with hypoxia or hypercapnia Status: Acute Assessment and Plan: Acute Respiratory failure secondary to pneumonia and PE. Patient appears to have developed ARDS Patient had became CPAP dependent 100% FiO2. Forty of Lasix given IV last night without any significant improvement. Patient does not have any edema on lower extremity suggestive of heart failure. Echo reviewed. 01/20 patient intubated for discussion with the patient and her daughter. ABG reviewed and low tidal volume ventilation. PEEP set at 12 tidal volume at 300 mL. FiO2 is 100%. Increase respiratory rate to 26 Post intubation patient was coughing and gagging leading to desaturation hence was given rocuronium. Patient was started on Nimbex infusion along with sedation at this time. Patient was placed in prone position continue sedation protocol per Elevator Constructor Hydraulic (2) Septic shock: Code(s): A41.9 - Sepsis, unspecified organism; R65.21 - Severe sepsis with septic shock Status: Acute Assessment and Plan: Secondary to pneumonia 01/17: Patient presented with hypotension, elevated lactic acid levels, fevers, cough, hypoxia -received 30 mL/kg IV fluids -started on Levophed via femoral central line - Off IV fluids vasopressors now -01/17: Blood cultures have been obtained and negative till now MRSA screen negative Urine pneumococcal antigen negative Urine Legionella antigen pending Influenza RSV and COVID PCR negative 01/22: Sputum cultures growing MRSA, -continue vancomycin patient still running fever, T 101.8 COntinue above care adn monitor if fever continues may need broadening of Abx (3) Community acquired pneumonia: Qualifiers: Laterality: left Lung location: lower lobe of lung Qualified Code(s): J18.9 - Pneumonia, unspecified organism Code(s): J18.9 - Pneumonia, unspecified organism Status: Acute Assessment and Plan: See above (4) Diabetes: Code(s): E11.9 - Type 2 diabetes mellitus without complications Status: Acute Assessment and Plan: Uncontrolled Continue Accu-Cheks and sliding scale insulin Continue Lantus (5) Acute kidney injury: Code(s): N17.9 - Acute kidney failure, unspecified Status: Acute Assessment and Plan: Patient initially presented with Acute kidney injury likely related to hypotension, septic shock She was adequately fluid-resuscitated and came off of IV fluids Creatinine normalized initially Patient did receive contrast for CTA Creatinine increased post intubation. 01/22 Lasix IV x1 Patient was given 25% albumin and will give 5% albumin. Will avoid liberal fluids due to patient's respiratory status. Patient is positive her I/O balance 01/25: Creatinine continues to increase along with elevated BUN today. Urine ou tput also decreasing. Dr Dunbar discussed with nephrology and family will plan to initiate dialysis. Temporary dialysis catheter placed after obtaining consent from patient's family. Discussed with nephrology. Forestry Worker will arrange for dialysis 01/25: Started dialysis with 1066 mL in fluid removal 01/26: Dialysis with 883 mL in fluid removal 01/27: Dialysis with 3000 mL in fluid removal 01/28: Diuresed with Bumex with good urine output and -1400 mL in fluid balance (6) Pulmonary embolism: Code(s): I26.99 - Other pulmonary embolism without acute cor pulmonale Status: Acute Assessment and Plan: Venous Dopplers negative 01/26: Heparin infusion is being held due to anemia and hematuria and drop in hemoglobin -will continue to monitor hemoglobin levels, if remains stable, may start Lovenox 1 mg/kg daily starting 01/27 01/27: Hemoglobin 7.0 this morning, will continue to hold anticoagulation, status post 1 unit of packed RBC 01/17: CT chest abdomen and pelvis IMPRESSION: Nonocclusive acute subsegmental pulmonary embolus in the left lower lobe. Very small clot burden. No evidence of right heart strain. Left lower lobe pneumonia. Mild hepatomegaly. Possible cystitis. Otherwise, no acute abdominopelvic process detected. Echo showed ef 55-60%, grade I diastolic with normal RV function (7) Electrolyte abnormality: Code(s): E87.8 - Other disorders of electrolyte and fluid balance, not elsewhere classified Status: Acute Assessment and Plan: Sodium levels have improved -continue tube feed flushes (8) Diverticulitis: Code(s): K57.92 - Diverticulitis of intestine, part unspecified, without perforation or abscess without bleeding Status: Acute Assessment and Plan: CT abdomen pelvis showed Mural thickening within the rectosigmoid colon with multiple diverticula and prominence of the vasa recta, possibly early diverticulitis. Interval development of perihepatic fluid, compared with previous study. Status post ceftriaxone and Flagyl (9) Ileus: Code(s): K56.7 - Ileus, unspecified Status: Acute Assessment and Plan: Patient has been having high tube feed residuals, Reglan was started on 01/26/2024. Patient tolerating tube feeds better. Has been having bowel movements -01/28: tube feeds have been switched to Nepro on 01/27, currently at goal, positive bowel movements (10) Anemia: Code(s): D64.9 - Anemia, unspecified Status: Acute Assessment and Plan: Patient's hemoglobin has gradually trended down over last 4-5 days. She is on heparin infusion for PE. There has been no evidence of bleeding. Continue monitor this time. Transfuse if hemoglobin less than 7. Platelets are at acceptable level. She is also on aspirin Plavix for coronary disease She is on Protonix twice a day 01/26: Hemoglobin dropped to 7.1, will hold heparin infusion. Monitor hemoglobin levels and if the improved restart either heparin infusion or Lovenox 1 mg/kg daily 01/27: Hemoglobin 7.0 this morning, status post 1 unit of packed RBCs with hemodialysis, continue to hold anticoagulation 01/29: hb 8.4 from 8.7 B12/Folate and iron panel pending FOBT pending Plan DVT prophylaxis: Heparin infusion has been stopped due to drop in hemoglobin, continue SCDs Stress ulcer prophylaxis: Protonix IV q.12 hours Nutrition: On Nepro, tube feeds at goal Code Status: 01/20 Dr Dunbar spoke to patient prior to intubation about cold and goals of care. She stated that she would like 1-2 rounds of resuscitation in case of cardiac arrest to see if she can be brought back but does not want prolonged resuscitation efforts. She also states that if she is unable to come off the ventilator in 2 weeks time she would not want a feeding tube and tracheostomy for long-term mechanical ventilation. Patient's daughter was at bedside and in agreement with patient's wishes Subjective Date/time seen: 01/30/24 16:31 Interval history: patient intubated and sedated Review of Systems Review of Systems: 12 systems were reviewed with pertinent positives and negatives per HPI. Except as documented in the HPI, all other systems were reviewed and are negative. All systems reviewed & are unremarkable except as noted in HPI and below ROS unobtainable: Yes unobtainable due to endotracheal tube, unobtainable due to medical condition and unobtainable due to mental status Exam Narrative: General: Patient is intubated, sedated in no acute distress HEENT:? Pupils equal and reactive, sclerae sclera, ET tube in place Neck:? Supple Respiratory:? Coarse breath sounds bilaterally no wheezing, adequate air entry Cardiac:? S1-S2 was normal, regular rate and rhythm Abdomen:? Soft, non distended, no tenderness, hypoactive bowel sounds, Extremities:? No edema, palpable pedal pulses Neuro:? Patient is intubated, sedated, does not open her eyes to name or follow simple commands. Withdraws to pain in all extremities Skin:? Warm and dry Const: Other: Obese, mildly ill-appearing, appears stated age, BiPAP in place HENMT: Other: Oral exam limited due to BiPAP being in place, patient is edentulous in upper jaw, has multiple missing teeth in lower jaw, mucous membranes are dry, head is normocephalic atraumatic, fluid present behind the right tympanic membrane Eyes: Other: Pupils are equal and reactive, no scleral icterus, positive conjunctival pallor Neck: Other: Large neck circumference, no JVD irregular thyroid Resp: Other: Crackles in the left base, conversational tachypnea, no accessory muscle use, BiPAP in place Cardio: Other: Sinus tachycardia, 2+ bilateral radial pedal pulses, no murmur, no JVD GI: Other: Soft, nontender, nondistended, positive bowel sounds : Other: Pressley catheter in place with clear dark yellow urine Skin: Other: No jaundice, positive pallor, warm to touch Neuro: Other: Alert orient x4, speech is clear, no facial asymmetry although symmetry exam is limited due to presence of BiPAP, no gross motor deficits noted Extrem: Other: No clubbing, cyanosis or edema, no mottling, 5/5 paper cutter operator strength bilateral, 5/5 strength dorsiflexion and plantar flexion bilateral Psych: Other: Appropriate mood and affect, pleasant and cooperative, judgment and insight intact Objective Data Vital Signs Vital Signs: Vital Signs - 24 hr 01/29/24 16:53 01/29/24 17:51 01/29/24 17:52 Temperature 100.1 F H Pulse Rate 77 77 Respiratory Rate 26 H Blood Pressure Pulse Oximetry 92 Oxygen Delivery Mechanical Ventilation Fraction of Inspired Oxygen 40 01/29/24 17:52 01/29/24 18:00 01/29/24 18:00 Temperature 100.2 F H Pulse Rate 77 68 68 Respiratory Rate 26 H 26 H Blood Pressure 131/53 L Pulse Oximetry 91 Oxygen Delivery Fraction of Inspired Oxygen 01/29/24 18:51 01/29/24 20:00 01/29/24 20:00 Temperature 100 F H Pulse Rate 69 69 Respiratory Rate 26 H 26 H Blood Pressure Pulse Oximetry Oxygen Delivery Fraction of Inspired Oxygen 01/29/24 21:15 01/29/24 21:15 01/29/24 20:00 Temperature Pulse Rate 95 95 Respiratory Rate 26 H 26 H Blood Pressure Pulse Oximetry Oxygen Delivery Fraction of Inspired Oxygen 40 01/29/24 20:00 01/29/24 20:00 01/29/24 20:00 Temperature 100.1 F H Pulse Rate 70 68 Respiratory Rate 26 H Blood Pressure 121/50 L Pulse Oximetry 93 Oxygen Delivery Mechanical Ventilation Fraction of Inspired Oxygen 40 01/29/24 22:00 01/29/24 22:16 01/29/24 22:00 Temperature 100.1 F H 100.1 F H Pulse Rate 93 80 93 Respiratory Rate 26 H 26 H 26 H Blood Pressure 176/69 H 135/51 L Pulse Oximetry 94 100 Oxygen Delivery Fraction of Inspired Oxygen 01/29/24 22:00 01/29/24 22:00 01/30/24 00:00 Temperature Pulse Rate 93 93 68 Respiratory Rate 26 H 26 H Blood Pressure Pulse Oximetry Oxygen Delivery Fraction of Inspired Oxygen 01/30/24 00:00 01/30/24 00:00 01/30/24 00:00 Temperature Pulse Rate 68 Respiratory Rate 26 H Blood Pressure Pulse Oximetry Oxygen Delivery Mechanical Ventilation Fraction of Inspired Oxygen 40 40 01/30/24 00:00 01/30/24 00:00 01/29/24 19:55 Temperature 100.2 F H Pulse Rate 68 68 68 Respiratory Rate 26 H Blood Pressure 111/49 L Pulse Oximetry 95 93 Oxygen Delivery Mechanical Ventilation Fraction of Inspired Oxygen 40 01/29/24 19:55 01/30/24 02:14 01/29/24 23:08 Temperature Pulse Rate 68 85 72 Respiratory Rate 26 H Blood Pressure Pulse Oximetry 92 95 Oxygen Delivery Mechanical Ventilation Mechanical Ventilation Fraction of Inspired Oxygen 40 40 01/29/24 20:05 01/30/24 02:14 01/30/24 02:23 Temperature Pulse Rate 70 85 83 Respiratory Rate 26 H 27 H 26 H Blood Pressure Pulse Oximetry Oxygen Delivery Fraction of Inspired Oxygen 01/30/24 02:00 01/30/24 04:00 01/30/24 02:00 Temperature Pulse Rate 91 66 91 Respiratory Rate 26 H 26 H 26 H Blood Pressure Pulse Oximetry Oxygen Delivery Fraction of Inspired Oxygen 01/30/24 04:00 01/30/24 05:05 01/30/24 06:00 Temperature Pulse Rate 66 83 88 Respiratory Rate 26 H 26 H Blood Pressure Pulse Oximetry 95 Oxygen Delivery Mechanical Ventilation Fraction of Inspired Oxygen 40 01/30/24 06:00 01/30/24 06:00 01/30/24 06:00 Temperature Pulse Rate 88 88 88 Respiratory Rate 26 H 26 H 26 H Blood Pressure Pulse Oximetry Oxygen Delivery Fraction of Inspired Oxygen 01/30/24 02:00 01/30/24 02:30 01/30/24 02:00 Temperature 100.4 F H Pulse Rate 91 74 91 Respiratory Rate 26 H Blood Pressure 182/57 H 139/45 L Pulse Oximetry 93 90 Oxygen Delivery Fraction of Inspired Oxygen 01/30/24 04:00 01/30/24 04:00 01/30/24 04:00 Temperature Pulse Rate 66 Respiratory Rate Blood Pressure Pulse Oximetry Oxygen Delivery Mechanical Ventilation Fraction of Inspired Oxygen 40 40 01/30/24 04:00 01/30/24 06:00 01/30/24 06:00 Temperature 100.7 F H 99.9 F H Pulse Rate 65 88 88 Respiratory Rate 26 H 26 H Blood Pressure 101/46 L 179/74 H Pulse Oximetry 95 92 Oxygen Delivery Fraction of Inspired Oxygen 01/30/24 07:21 01/30/24 07:22 01/30/24 07:49 Temperature 100.5 F H Pulse Rate 95 95 70 Respiratory Rate 26 H 26 H 26 H Blood Pressure 114/47 L Pulse Oximetry 93 Oxygen Delivery Fraction of Inspired Oxygen 01/30/24 08:00 01/30/24 08:00 01/30/24 08:00 Temperature Pulse Rate 74 Respiratory Rate Blood Pressure Pulse Oximetry Oxygen Delivery Mechanical Ventilation Fraction of Inspired Oxygen 40 40 01/30/24 08:00 01/30/24 08:21 01/30/24 08:21 Temperature 100.6 F H Pulse Rate 72 73 73 Respiratory Rate 26 H 22 H Blood Pressure 101/44 L Pulse Oximetry 94 96 Oxygen Delivery Mechanical Ventilation Fraction of Inspired Oxygen 40 01/30/24 08:50 01/30/24 09:00 01/30/24 09:11 Temperature Pulse Rate 74 77 82 Respiratory Rate 22 H 22 H 22 H Blood Pressure Pulse Oximetry Oxygen Delivery Fraction of Inspired Oxygen 01/30/24 08:00 01/30/24 09:30 01/30/24 10:08 Temperature 100.1 F H Pulse Rate 75 65 62 Respiratory Rate 22 H 22 H 24 H Blood Pressure 101/45 L Pulse Oximetry 96 Oxygen Delivery Fraction of Inspired Oxygen 01/30/24 10:08 01/30/24 10:09 01/30/24 10:00 Temperature Pulse Rate 65 65 64 Respiratory Rate 24 H 24 H Blood Pressure Pulse Oximetry Oxygen Delivery Fraction of Inspired Oxygen 01/30/24 10:00 01/30/24 11:07 01/30/24 11:08 Temperature 100.0 F H Pulse Rate 63 77 74 Respiratory Rate 24 H 23 H 23 H Blood Pressure 116/52 L Pulse Oximetry 95 Oxygen Delivery Fraction of Inspired Oxygen 01/30/24 11:09 01/30/24 10:15 01/30/24 10:27 Temperature Pulse Rate 82 64 Respiratory Rate 23 H Blood Pressure Pulse Oximetry 95 94 Oxygen Delivery Mechanical Ventilation Mechanical Ventilation Fraction of Inspired Oxygen 40 35 01/30/24 11:12 01/30/24 11:30 01/30/24 12:24 Temperature 100.0 F H 100.4 F H Pulse Rate 87 92 85 Respiratory Rate 23 H 22 H Blood Pressure 100/48 L 162/85 H Pulse Oximetry 93 92 Oxygen Delivery Fraction of Inspired Oxygen 01/30/24 12:00 01/30/24 12:00 01/30/24 12:00 Temperature Pulse Rate 85 87 Respiratory Rate 22 H 23 H Blood Pressure Pulse Oximetry Oxygen Delivery Mechanical Ventilation Fraction of Inspired Oxygen 35 01/30/24 12:00 01/30/24 12:00 01/30/24 12:00 Temperature 100.5 F H Pulse Rate 85 93 Respiratory Rate 23 H Blood Pressure 151/85 H Pulse Oximetry 91 Oxygen Delivery Fraction of Inspired Oxygen 35 01/30/24 13:00 01/30/24 13:00 01/30/24 13:29 Temperature Pulse Rate 86 86 85 Respiratory Rate 22 H 23 H Blood Pressure 116/95 H Pulse Oximetry 92 93 Oxygen Delivery Mechanical Ventilation Fraction of Inspired Oxygen 35 01/30/24 13:29 01/30/24 14:09 01/30/24 14:05 Temperature 101.4 F H Pulse Rate 85 85 Respiratory Rate 27 H 26 H Blood Pressure Pulse Oximetry Oxygen Delivery Fraction of Inspired Oxygen 01/30/24 14:05 01/30/24 14:00 01/30/24 14:00 Temperature Pulse Rate 85 84 86 Respiratory Rate 24 H 24 H Blood Pressure Pulse Oximetry Oxygen Delivery Fraction of Inspired Oxygen 01/30/24 14:00 01/30/24 14:00 01/30/24 15:09 Temperature 101.4 F H 101.6 F H 102 F H Pulse Rate 87 71 Respiratory Rate 25 H 27 H Blood Pressure 149/53 H 149/53 H Pulse Oximetry 93 92 Oxygen Delivery Fraction of Inspired Oxygen 01/30/24 16:00 01/30/24 16:00 01/30/24 16:00 Temperature 101.8 F H Pulse Rate 85 Respiratory Rate 22 H Blood Pressure 151/57 H Pulse Oximetry 96 Oxygen Delivery Mechanical Ventilation Fraction of Inspired Oxygen 35 35 01/30/24 16:00 01/30/24 16:00 01/30/24 16:00 Temperature Pulse Rate 82 77 77 Respiratory Rate 25 H 24 H Blood Pressure Pulse Oximetry Oxygen Delivery Fraction of Inspired Oxygen 01/30/24 16:00 Temperature Pulse Rate 77 Respiratory Rate 24 H Blood Pressure Pulse Oximetry Oxygen Delivery Fraction of Inspired Oxygen Intake/Output Intake/Output: Intake & Output 01/27/24 01/28/24 01/29/24 01/30/24 23:59 23:59 23:59 23:59 Intake Total 2010.5 1968.9 1565.7 1168.3 Output Total 2083 4450 3000 1350 Balance -72.5 -2481.1 -1434.3 -181.7 Meds/Results Medications: Active Medications Generic Name Dose Route Start Last Admin Trade Name Freq PRN Reason Stop Dose Admin Acetaminophen 650 mg 01/20/24 10:08 01/30/24 14:09 Acetaminophen 325 Mg Tablet PO 650 mg Q4H PRN Administration Mild Pain (1-3) or Fever Acetylcysteine 200 mg 01/28/24 14:00 01/30/24 13:29 Acetylcysteine 20% Inhal Soln 800 Mg/4 Ml Vial INHALATION 200 mg Q6HRT EDMOND Administration Albuterol/Ipratropium 3 ml 01/22/24 14:00 01/30/24 13:29 Ipratropium 0.5 Mg/Albuterol Sulfate 2.5 Mg Ampul.Neb 3 Ml INHALATION 3 ml Q6HRT EDMOND Administration Aspirin 81 mg 01/19/24 08:00 01/30/24 07:50 Aspirin 81 Mg Chewable Tablet PO 81 mg DAILY@0800 EDMOND Administration Atorvastatin Calcium 40 mg 01/19/24 09:00 01/30/24 07:51 Atorvastatin 40 Mg Tablet PO 40 mg DAILY EDMOND Administration Clopidogrel Bisulfate 75 mg 01/19/24 09:00 01/30/24 07:51 Clopidogrel Bisulfate 75 Mg Tablet PO 75 mg DAILY EDMON[facility] Administration Dextrose 12.5 gm 01/18/24 23:28 Dextrose 50% 25 Gm/50 Ml Syringe IV PUSH PRN PRN Hypoglycemia Protocol Glucagon 1 mg 01/18/24 23:28 Glucagon For Inj 1 Mg Vial IM PRN PRN Hypoglycemia Protocol Glucose 15 gm 01/18/24 23:28 Glucose Oral Gel 15 Gm Of Glucse In 37.5 Gm Tube PO PRN PRN Hypoglycemia Protocol Heparin Sodium (Porcine) 4,500 units 01/18/24 23:25 01/26/24 17:28 Heparin Sodium 5,000 Units/Ml Vial IV PUSH 4,500 units PRN PRN Administration aPTT less than 55 seconds Heparin Sodium (Porcine) 2,500 units 01/18/24 23:25 01/24/24 06:17 Heparin Sodium 5,000 Units/Ml Vial IV PUSH 2,500 units PRN PRN Administration aPTT 55 - 70 seconds Heparin Sodium/Dextrose 25,000 units in 250 mls @ 0 mls/hr 01/18/24 23:25 01/27/24 14:00 Heparin Sodium/D5w 100 Units/Ml IV CONT Infused .Q0M [facility] Titration Protocol 0 UNITS/HR Dextrose 1,000 mls @ 100 mls/hr 01/18/24 23:28 Dextrose 5% 1,000 Ml IVPB PRN PRN Hypoglycemia Protocol Fentanyl Citrate 2,500 mcg in 250 mls @ 7.5 mls/hr 01/21/24 07:40 01/30/24 16:00 Fentanyl 2,500 Mcg/Ns 250 Ml IV CONT 75 mcg/hr .[id number] EDMOND 7.5 mls/hr Titration Protocol 75 MCG/HR Midazolam HCl 100 mg in 100 mls @ 0 mls/hr 01/21/24 07:40 01/30/24 16:00 Versed 100 Mg/Ns 100 Ml IV CONT Infused .Q0M [facility] Titration Protocol Norepinephrine Bitartrate 8 mg in 250 mls @ 9.375 mls/hr 01/22/24 08:05 01/30/24 06:05 Levophed 8 Mg/D5w 250 Ml IV CONT Not Given .Q24H [facility] Protocol 5 MCG/MIN Insulin Human Regular 100 100 mls @ 1 mls/hr 01/23/24 08:15 01/25/24 22:11 units/ Sodium Chloride IV CONT Not Given .Q24H [facility] Protocol 1 UNITS/HR Albumin Human 50 mls @ 999 mls/hr 01/26/24 11:40 01/27/24 09:51 Albutein IVPB 02/25/24 11:39 999 mls/hr Q10M PRN Administration HYPOTENSION Dexmedetomidine HCl 400 mcg in 100 mls @ 15.52 mls/hr 01/30/24 08:40 01/30/24 16:00 Precedex 400 Mcg/100 Ml IV CONT 0.8 mcg/kg/hr .Q6H27M [facility] 15.52 mls/hr Titration Protocol 0.8 MCG/KG/HR Insulin Aspart 4 - 8 units 01/19/24 12:00 01/30/24 15:50 Insulin Aspart (*Bkc) 100 Units/Ml SUB-Q 4 units Q4H [facility]MON[facility] Administration Protocol Insulin Glargine 65 units 01/26/24 09:00 01/30/24 07:56 Insulin Glargine (*Bkc) 100 Units/Ml SUB-Q 65 units QAM [facility]MON[facility] Administration Levothyroxine Sodium 112 mcg 01/19/24 06:30 01/30/24 06:03 Levothyroxine Sodium 112 Mcg Tablet PO 112 mcg DAILY@0630 [facility] Administration Midazolam HCl 4 mg 01/21/24 09:35 01/26/24 05:58 Midazolam Hcl (*Crx) 2 Mg/2 Ml Vial IV PUSH 4 mg PRN PRN Administration Sedation Miscellaneous Information 1 each 01/30/24 00:01 Versed Iv Push Needs To Be Renewed Or It Will Automatically Discontinue. XX 02/29/24 00:00 CLARIFY EDMOND Multi-Ingred Cream/Lotion/Oil/Oint 1 applic 01/21/24 09:00 01/30/24 07:55 Mineral Oil/White Petrolatum Ointment EACH EYE 1 applic Q12HR [facility]MON[facility] Administration Ondansetron HCl 4 mg 01/18/24 22:13 Ondansetron Inj 4 Mg/2 Ml Vial IV PUSH Q4H PRN Nausea Pantoprazole Sodium 40 mg 01/19/24 09:00 01/30/24 07:51 Pantoprazole Sodium Iv 40 Mg Vial IV PUSH 40 mg Q12HR EDMOND Administration Polyethylene Glycol 17 gm 01/29/24 10:19 Polyethylene Glycol 3350 17 Gm Powd.Pack PO QAM PRN Constipation Vancomycin HCl 1 each 01/30/24 09:16 Vancomycin For Acute Kidney Injury IVPB PRN PRN Vancomycin Protocol Radiology Results: ITS Impressions Chest/Abdomen/Pelvis CTA 01/18/24 18:30 IMPRESSION: Nonocclusive acute subsegmental pulmonary embolus in the left lower lobe. Very small clot burden. No evidence of right heart strain. Left lower lobe pneumonia. Mild hepatomegaly. Possible cystitis. Otherwise, no acute abdominopelvic process detected. Head CT 01/19/24 05:47 Impression: No intracranial hemorrhage, mass, or acute infarct. Atrophy and chronic white matter changes, as above. Chest/Abdomen/Pelvis CT 01/22/24 12:43 IMPRESSION: Worsening respiratory status with bibasilar consolidation and interstitial thickening with patchy groundglass opacification bilaterally -findings suggesting ARDS. Mural thickening within the rectosigmoid colon with multiple diverticula and prominence of the vasa recta, possibly early diverticulitis. Interval development of perihepatic fluid, compared with previous study. Renal Ultrasound 01/24/24 12:05 IMPRESSION: 1. Normal kidneys without hydronephrosis. Abdomen X-Ray 01/25/24 14:53 IMPRESSION: NG tube in distal stomach Nonspecific abdomen Chest X-Ray 01/30/24 06:23 IMPRESSION: Diffuse mildly increased bilateral pulmonary infiltrates since 01/29/2024 Venous Doppler Study 01/30/24 14:52 IMPRESSION: 1. Small amount of nonocclusive deep venous thrombosis at the right common femoral vein reported site of a recently removed central venous catheter. No other deep venous thrombosis in the remainder of the bilateral lower limbs. Labs Labs: Laboratory Results - last 24 hr 01/29/24 01/30/24 01/30/24 20:06 00:17 04:32 WBC RBC Hgb Hct MCV MCH MCHC RDW Plt Count MPV Immature Gran % (Auto) Neut % (Auto) Lymph % (Auto) Falls % (Auto) Eos % (Auto) Baso % (Auto) Lymph # (Auto) Falls # (Auto) Eos # (Auto) Baso # (Auto) Abs Immat Gran (auto) Absolute Neuts (auto) Absolute Nucleated RBC Nucleated RBC % Platelet Estimate Hypochromasia Anisocytosis Target Cells Ovalocytes Schistocytes Puncture Site ABG pH ABG pCO2 ABG pO2 ABG PO2/FiO2 Ratio ABG HCO3 ABG O2 Saturation ABG O2 Content ABG Base Excess A-a Gradient Oxyhemoglobin Carboxyhemoglobin Methemoglobin Reduced Hemoglobin Total Hemoglobin O2 Delivery Device O2 Liters/Min Minute Volume Vent Rate Vent Mode FiO2 Tidal Volume PEEP Peak Inspir Pressure Pressure Support Sodium Potassium Chloride Carbon Dioxide Anion Gap BUN Creatinine Estim Creat Clear Calc Estimated GFR Glucose POC Capillary Glucose 185 H 232 H 187 H Calcium Phosphorus Magnesium Total Bilirubin AST ALT Alkaline Phosphatase Total Protein Albumin 01/30/24 01/30/24 01/30/24 04:38 05:05 07:51 WBC 17.6 H RBC 2.68 L Hgb 8.4 L Hct 27.3 L MCV 101.9 H MCH 31.3 MCHC 30.8 L RDW 15.9 H Plt Count 294 MPV 11.5 H Immature Gran % (Auto) 6.7 H Neut % (Auto) 76.8 H Lymph % (Auto) 10.6 L Falls % (Auto) 4.4 Eos % (Auto) 1.0 Baso % (Auto) 0.5 Lymph # (Auto) 1.87 Falls # (Auto) 0.8 H Eos # (Auto) 0.2 Baso # (Auto) 0.1 Abs Immat Gran (auto) 1.18 H Absolute Neuts (auto) 13.5 H Absolute Nucleated RBC 0.060 H Nucleated RBC % 0.3 H Platelet Estimate Adequate Hypochromasia 1+ Anisocytosis 1+ Target Cells 1+ Ovalocytes 1+ Schistocytes None seen Puncture Site Right radial ABG pH 7.503 H* ABG pCO2 34.0 L ABG pO2 76.1 L ABG PO2/FiO2 Ratio 1.90 ABG HCO3 26.1 H ABG O2 Saturation 96.4 ABG O2 Content 13.4 L ABG Base Excess 3.1 A-a Gradient 170.0 Oxyhemoglobin 94.9 Carboxyhemoglobin 0.4 Methemoglobin 0.3 Reduced Hemoglobin 4.4 Total Hemoglobin 10.0 L O2 Delivery Device Ventilator O2 Liters/Min Not Reportable Minute Volume Not Reportable Vent Rate 26 Vent Mode Cmv FiO2 40 Tidal Volume 360 PEEP 10 Peak Inspir Pressure Not Reportable Pressure Support Not Reportable Sodium 142 Potassium 3.2 L Chloride 105 Carbon Dioxide 30 Anion Gap 7 BUN 65 H Creatinine 1.60 H Estim Creat Clear Calc 28 Estimated GFR 32 L Glucose 182 H POC Capillary Glucose 249 H Calcium 8.9 Phosphorus 4.2 Magnesium 1.8 Total Bilirubin 0.9 AST 42 H ALT 25 Alkaline Phosphatase 115 Total Protein 7.0 Albumin 3.5 01/30/24 01/30/24 11:33 15:42 WBC RBC Hgb Hct MCV MCH MCHC RDW Plt Count MPV Immature Gran % (Auto) Neut % (Auto) Lymph % (Auto) Falls % (Auto) Eos % (Auto) Baso % (Auto) Lymph # (Auto) Falls # (Auto) Eos # (Auto) Baso # (Auto) Abs Immat Gran (auto) Absolute Neuts (auto) Absolute Nucleated RBC Nucleated RBC % Platelet Estimate Hypochromasia Anisocytosis Target Cells Ovalocytes Schistocytes Puncture Site ABG pH ABG pCO2 ABG pO2 ABG PO2/FiO2 Ratio ABG HCO3 ABG O2 Saturation ABG O2 Content ABG Base Excess A-a Gradient Oxyhemoglobin Carboxyhemoglobin Methemoglobin Reduced Hemoglobin Total Hemoglobin O2 Delivery Device O2 Liters/Min Minute Volume Vent Rate Vent Mode FiO2 Tidal Volume PEEP Peak Inspir Pressure Pressure Support Sodium Potassium Chloride Carbon Dioxide Anion Gap BUN Creatinine Estim Creat Clear Calc Estimated GFR Glucose POC Capillary Glucose 196 H 219 H Calcium Phosphorus Magnesium Total Bilirubin AST ALT Alkaline Phosphatase Total Protein Albumin Quality VTE Prophylaxis VTE prophylaxis: pharmacologic ordered (Heparin GGT per protocol)
[2024-01-30] MEDS: MIDAZOLAM HCL (*CRX) 2 MG/2 ML VIAL 4 MG IV PUSH (16:56)
[2024-01-30] MEDS: dexmedeTOMIDine 400 MCG/100 ML 400 MCG/100 ML BAG 17.46 MCG IV CONT (17:14)
[2024-01-30] MEDS: NOREPINEPHRINE 8 MG/D5W 250 ML 8 MG/250 ML BAG 9.38 MG IV CONT (19:45)
[2024-01-30] MEDS: PROPOFOL IV EMULSION 100 ML 2.33 MG IV CONT (20:45)
[2024-01-30 21:20] LABS: Glucose Point of Care 240 mg/dl (65-105)
[2024-01-30] MEDS: dexmedeTOMIDine 400 MCG/100 ML 400 MCG/100 ML BAG 23.28 MCG IV CONT (21:53)
[2024-01-31] VITALS (60 sets, daily range): BP systolic 97–183; BP diastolic 39–108; PULSE 50–86; RESP 12–30; TEMP 36.6–38.1; O2SAT 87–96
[2024-01-31] MEDS: INSULIN ASPART (*BKC) 100 UNITS/ML SUB-Q ×4 (00:15→12:39)
[2024-01-31 00:35] LABS: Glucose Point of Care 228 mg/dl (65-105)
[2024-01-31] MEDS: IPRATROPIUM 0.5 MG/ALBUTEROL SULFATE 2.5 MG AMPUL.NEB 3 ML INHALATION ×4 (02:20→20:22)
[2024-01-31] MEDS: ACETYLCYSTEINE 20% INHAL SOLN 800 MG/4 ML VIAL 200 MG INHALATION ×4 (02:21→20:22)
[2024-01-31] MEDS: dexmedeTOMIDine 400 MCG/100 ML 400 MCG/100 ML BAG 17.46 MCG IV CONT (03:30)
[2024-01-31] MEDS: LEVOTHYROXINE SODIUM 112 MCG TABLET PO (05:05)
[2024-01-31 05:14] LABS: Glucose Point of Care 242 mg/dl (65-105)
[2024-01-31 05:22] LABS: Folic Acid 19.6 ng/mL (2.76->20); Vitamin B12 > 1000.0 pg/mL (239-931)
[2024-01-31 05:28] LABS: Basophils Percent Auto 0.3 % (0.2-1.2); Eosinophils Absolute Auto 0.2 K/mm3 (0-0.3); Eosinophils Percent Auto 1.5 % (0-4.4); Hematocrit 26.8 % (37.0-47.0); Hemoglobin 8.6 g/dL (12.0-15.0); Immature Granulocyte Absolute 0.44 K/mm3 (0.00-0.031); Immature Granulocyte Percent A 3.2 % (0-0.5); Lymphocytes Absolute Auto 1.83 K/mm3 (0.9-3.2); Lymphocytes Percent Auto 13.3 % (18.3-44.2); Mean Corpuscular HGB Conc 32.1 g/dl (32-36); Mean Corpuscular Hemoglobin 31.7 pg (26-34); Mean Corpuscular Volume 98.9 fl (80-100); Mean Platelet Volume 10.7 fl (7.4-10.4); Monocytes Absolute Auto 0.7 K/mm3 (0.1-0.6); Monocytes Percent Auto 5.4 % (2.6-8.5); Neutrophils Absolute Auto 10.5 K/mm3 (1.3-6.7); Neutrophils Percent Auto 76.3 % (45.5-73.1); Platelet Count Result 301 k/mm3 (150-375); Red Blood Count 2.71 M/mm3 (4.2-5.4); Red Cell Distribution Width 15.7 % (11.5-14.5); White Blood Count 13.8 K/mm3 (4.5-10.0)
[2024-01-31 05:39] LABS: Lactic Acid Reflex 1.4 mmol/L (0.7-2.0)
[2024-01-31 05:42] LABS: Alanine Aminotransferase 31 U/L (6-35); Albumin Level 3.6 g/dL (3.5-5.1); Alkaline Phosphatase 127 U/L (38-126); Anion Gap 10 mmol/L (4-12); Aspartate Amino Transferase 47 U/L (14-36); Bilirubin,Total 0.9 mg/dL (0.2-1.3); Blood Urea Nitrogen 63 mg/dL (7-17); Carbon Dioxide 29 mmol/L (22-30); Chloride 103 mmol/L (98-107); Estimated CRCL calculation 29 ml/min; Estimated Glomerular Filt Rate 34; Glucose 257 mg/dL (65-110); Magnesium 2.1 mg/dL (1.6-2.3); Phosphorus 6.1 mg/dL (2.5-4.5); Potassium 4.1 mmol/L (3.4-5.0); Sodium 142 mmol/L (137-145); Triglycerides 120 mg/dL (<150)
[2024-01-31 05:44] LABS: Vancomycin Random 18.6 ug/mL (10-20)
[2024-01-31 05:45] LABS: Alveolar/Arterial O2 Gradient 144.2 mmHg; Base Excess ABG 3.5 mEq/l (+/-2.0); Carboxyhemoglobin 1.3 % THb (0-2.0); Fractional Inspired Oxygen 35 %; HCO3 ABG 26.7 mEq/l (22.0-26.0); Methemoglobin ABG 0.1 %THb (0-1.5); Oxygen Content ABG 17.9 %vol (16.0-22.0); Oxygen Saturation ABG 94.1 % (95.0-100.0); Oxyhemoglobin 91.6 % THb (90.0-100.0); PCO2 ABG 35.7 mmHg (35.0-45.0); PO2 ABG 63.9 mmHg (80.0-100.0); PO2 FiO2 Ratio Arterial Blood 1.83 %; Total Hemoglobin 13.9 g/dL (12.0-18.0); pH ABG 7.491 (7.350-7.450)
[2024-01-31 05:50] LABS: Arterial Blood Gas Vent Mode CMV; Arterial Blood Gas Ventilator rate 22 /MIN; Device VENTILATOR; Modified Allen's Test Pass; Site Drawn RIGHT RADIAL
[2024-01-31 05:51] LABS: Arterial Blood Gas PEEP 8 cmH2O; Arterial Blood Gas Tidal Volume 360 ml
[2024-01-31 05:59] LABS: Iron 25 ug/dL (37-170)
[2024-01-31 06:07] LABS: Percent Iron Saturation 10 % (20-50); TOTAL IRON BINDING CAPACITY 251 ug/dL (261-462)
--- NOTE | 2024-01-31 08:56 | WPDINTPN ---
Progress Note: A&P Assessment and Plan (1) Acute respiratory failure: Code(s): J96.00 - Acute respiratory failure, unspecified whether with hypoxia or hypercapnia Status: Acute Assessment and Plan: Acute Respiratory failure secondary to pneumonia and PE. Patient appears to have developed ARDS Patient had became CPAP dependent 100% FiO2. Forty of Lasix given IV last night without any significant improvement. Patient does not have any edema on lower extremity suggestive of heart failure. Echo reviewed. 01/20 patient intubated for discussion with the patient and her daughter. ABG reviewed and low tidal volume ventilation. PEEP set at 12 tidal volume at 300 mL. FiO2 is 100%. Increase respiratory rate to 26 Post intubation patient was coughing and gagging leading to desaturation hence was given rocuronium. Patient was started on Nimbex infusion along with sedation at this time. Patient was placed in prone position 01/21 patient was switched to supine position around 2:00 a.m.. She is a 70% FiO2 and 12 of PEEP 01/22 on 55% FiO2 and 12 of PEEP. ABG reviewed. Decrease respiratory rate to 24. Continue to wean FiO2. CT scan done yesterday showed IMPRESSION: Worsening respiratory status with bibasilar consolidation and interstitial thickening with patchy groundglass opacification bilaterally -findings suggesting ARDS. 01/23 overnight patient had increased oxygen requirement. Yesterday morning neuromuscular yasemin infusion was discontinued but patient later was a synchronous with the ventilator with coughing and gagging. Sedation was increased but did not fix the problem patient desaturated. Nimbex infusion was restarted. This morning she is on 70% FiO2 and Wean FiO2 to 65% this morning Status post steroids for pneumonia and ARDS Status post Nimbex 01/24 continues to be on mechanical ventilation and is on 70% FiO2 and 12 of PEEP. I will increase the PEEP to 14. 01/25 Chest x-ray reviewed and does not show any significant change and shows stable diffuse lung disease Continue Low tidal volume ventilation and permissive hypercapnia and permissive respiratory acidosis 01/25: Started dialysis with removal of 1066 mL in fluid removal -remains on CMV mode of ventilation, peep of 8 and 35% FiO2, -Continue Bronchodilators 01/28: Diuresed well with Bumex with 1400 mL in negative fluid balance 01/29: Discussed with Nephrology, diuresed well with Bumex with approximately 1600 mL in negative fluid balance 01/30: Chest x-ray - Stable or mildly improved extensive bilateral pulmonary infiltrates, most prominent in the lower lobes, especially left lower lobe -currently on Precedex and propofol infusion, will try to wean off propofol and leave patient on Precedex, will try patient on SBT (2) Septic shock: Code(s): A41.9 - Sepsis, unspecified organism; R65.21 - Severe sepsis with septic shock Status: Acute Assessment and Plan: Secondary to pneumonia 01/17: Patient presented with hypotension, elevated lactic acid levels, fevers, cough, hypoxia -received 30 mL/kg IV fluids -started on Levophed via femoral central line - Off IV fluids vasopressors now -01/17: Blood cultures have been obtained and negative till now MRSA screen negative Urine pneumococcal antigen negative Urine Legionella antigen pending Influenza RSV and COVID PCR negative 01/22: Sputum cultures growing MRSA, -continue vancomycin 01/26 Flagyl and ceftriaxone discontinued 01/28: Patient has been febrile with a T-max of 101.3?, 01/28: Blood, and sputum cultures negative so far 01/28: Urine cultures are pending 01/29: Remains febrile, venous Dopplers: Small amount of nonocclusive deep venous thrombosis at the right common femoral vein reported site of a recently removed central venous catheter. No other deep venous thrombosis in the remainder of the bilateral lower limbs. -patient did not tolerate anticoagulation for a small PE, will have surgery evaluate the patient for a IVC filter placement -01/30 CT brain, showed Moderate mucoperiosteal thickening of the left sphenoid sinus and partial opacification of mastoid air cells bilaterally -given patient continues to have low-grade fevers, will place patient on Unasyn possible sinusitis (3) Community acquired pneumonia: Qualifiers: Laterality: left Lung location: lower lobe of lung Qualified Code(s): J18.9 - Pneumonia, unspecified organism Code(s): J18.9 - Pneumonia, unspecified organism Status: Acute Assessment and Plan: See above (4) Diabetes: Code(s): E11.9 - Type 2 diabetes mellitus without complications Status: Acute Assessment and Plan: Uncontrolled Continue Accu-Cheks and sliding scale insulin Continue Lantus (5) Acute kidney injury: Code(s): N17.9 - Acute kidney failure, unspecified Status: Acute Assessment and Plan: Patient initially presented with Acute kidney injury likely related to hypotension, septic shock She was adequately fluid-resuscitated and came off of IV fluids Creatinine normalized initially Patient did receive contrast for CTA Creatinine increased post intubation. 01/22 Lasix IV x1 Patient was given 25% albumin and will give 5% albumin. Will avoid liberal fluids due to patient's respiratory status. Patient is positive her I/O balance 01/25: Creatinine continues to increase along with elevated BUN today. Urine output also decreasing. Dr Dunbar discussed with nephrology and family will plan to initiate dialysis. Temporary dialysis catheter placed after obtaining consent from patient's family. Discussed with nephrology. [employer] will arrange for dialysis 01/25: Started dialysis with 1066 mL in fluid removal 01/26: Dialysis with 883 mL in fluid removal 01/27: Dialysis with 3000 mL in fluid removal 01/28: Diuresed with Bumex with good urine output and approx 1400 mL in negative fluid balance 03/31: Diuresis with Bumex with good urine output and approx 1600 mL in negative fluid balance (6) Pulmonary embolism: Code(s): I26.99 - Other pulmonary embolism without acute cor pulmonale Status: Acute Assessment and Plan: 01/18: Venous Dopplers negative 01/26: Heparin infusion is being held due to anemia and hematuria and drop in hemoglobin -will continue to monitor hemoglobin levels, if remains stable, may start Lovenox 1 mg/kg daily starting 01/27 01/27: Hemoglobin 7.0 this morning, will continue to hold anticoagulation, status post 1 unit of packed RBC 01/29: Venous Dopplers: Small amount of nonocclusive deep venous thrombosis at the right common femoral vein reported site of a recently removed central venous catheter. No other deep venous thrombosis in the remainder of the bilateral lower limbs. 01/17: CT chest abdomen and pelvis IMPRESSION: Nonocclusive acute subsegmental pulmonary embolus in the left lower lobe. Very small clot burden. No evidence of right heart strain. Left lower lobe pneumonia. Mild hepatomegaly. Possible cystitis. Otherwise, no acute abdominopelvic process detected. Echo Summary 1. Left ventricular systolic function is normal, estimated at 55-60%. 2. There is mildly increased left ventricular wall thickness. 3. The left ventricular diastolic function is grade I diastolic dysfunction. 4. There is trace mitral valve regurgitation. 5. There is trace tricuspid valve regurgitation. 6. No pulmonary hypertension, estimated pulmonary arterial systolic pressure is 41 mmHg. 7. Right ventricular systolic function is normal. 8. Right ventricular chamber dimension is normal. (7) Electrolyte abnormality: Code(s): E87.8 - Other disorders of electrolyte and fluid balance, not elsewhere classified Status: Acute Assessment and Plan: Sodium levels have improved -continue tube feed flushes (8) Diverticulitis: Code(s): K57.92 - Diverticulitis of intestine, part unspecified, without perforation or abscess without bleeding Status: Acute Assessment and Plan: CT abdomen pelvis showed Mural thickening within the rectosigmoid colon with multiple diverticula and prominence of the vasa recta, possibly early diverticulitis. Interval development of perihepatic fluid, compared with previous study. Status post ceftriaxone and Flagyl (9) Ileus: Code(s): K56.7 - Ileus, unspecified Status: Acute Assessment and Plan: Patient has been having high tube feed residuals, Reglan was started on 01/26/2024. Patient tolerating tube feeds better. Has been having bowel movements -01/28: tube feeds have been switched to Nepro on 01/27, currently at goal, positive bowel movements (10) Anemia: Code(s): D64.9 - Anemia, unspecified Status: Acute Assessment and Plan: Patient's hemoglobin has gradually trended down over last 4-5 days. She is on heparin infusion for PE. There has been no evidence of bleeding. Continue monitor this time. Transfuse if hemoglobin less than 7. Platelets are at acceptable level. She is also on aspirin Plavix for coronary disease She is on Protonix twice a day 01/26: Hemoglobin dropped to 7.1, will hold heparin infusion. Monitor hemoglobin levels and if the improved restart either heparin infusion or Lovenox 1 mg/kg daily 01/27: Hemoglobin 7.0 this morning, status post 1 unit of packed RBCs with hemodialysis, continue to hold anticoagulation 01/30: Hemoglobin remains stable at this time, anticoagulation continue to be on hold (11) Encephalopathy: Code(s): G93.40 - Encephalopathy, unspecified Status: Acute Assessment and Plan: Patient was encephalopathic, was not initially opening her eyes or follows commands 01/30: -this morning she did open her eyes and follows simple commands on the lower extremities. 01/30: CT brain Cerebral atherosclerosis and chronic small vessel ischemic changes of the cerebral white matter No acute intracranial finding Moderate mucoperiosteal thickening of the left sphenoid sinus and partial opacification of mastoid air cells bilaterally Plan DVT prophylaxis: Heparin infusion has been stopped due to drop in hemoglobin, continue SCDs Stress ulcer prophylaxis: Protonix IV q.12 hours Nutrition: On Nepro, tube feeds at goal Code Status: 01/20 Dr Dunbar spoke to patient prior to intubation about cold and goals of care. She stated that she would like 1-2 rounds of resuscitation in case of cardiac arrest to see if she can be brought back but does not want prolonged resuscitation efforts. She also states that if she is unable to come off the ventilator in 2 weeks time she would not want a feeding tube and tracheostomy for long-term mechanical ventilation. Patient's daughter was at bedside and in agreement with patient's wishes Critical Care Time Spent: 33 minutes Discussed with patient's family and updated with her condition and plan of care. I answered all the questions Due to a high probability of clinically significant, life threatening deterioration, the patient required my highest level of preparedness to intervene emergently and I personally spent this critical care time directly and personally managing the patient. This critical care time included obtaining a history; examining the patient; pulse oximetry; ordering and review of studies; arranging urgent treatment with development of a management plan; evaluation of patient's response to treatment; frequent reassessment; and discussions with other providers. It was exclusive of separately billable procedures and treating other patients and teaching time. Please see Assessment and Plan section and the rest of the note for further information on patient assessment and treatment This dictation may have been done utilizing a voice recognition system. Attempts have been made to correct errors. However, there may be uncorrected grammatical, spelling, and recognitions errors present. Subjective Date/time seen: 01/31/24 08:56 Interval history: 68yo female with HTN, CHF, DM and HLD with PE pneumonia acute respiratory failure ARDS acute kidney injury 01/29: Venous Dopplers: Small amount of nonocclusive deep venous thrombosis at the right common femoral vein reported site of a recently removed central venous catheter. No other deep venous thrombosis in the remainder of the bilateral lower limbs. 01/31/2024: Patient seen and examined the ICU, remains intubated on CMV mode of ventilation, peep of 8, 35% FiO2, sedated with propofol and Precedex infusion, fentanyl and Versed were discontinued. Patient does open her eyes, follows simple commands in bilateral feet. Does not squeeze fingers. Patient diuresed well yesterday with Bumex with -1599 mL in fluid balance. Continues to have fevers with T-max of 100.2?. Is hemodynamically stable Review of Systems Review of Systems: ROS unobtainable: Yes unobtainable due to endotracheal tube, unobtainable due to medical condition and unobtainable due to mental status Exam Narrative: General: Patient is intubated, sedated in no acute distress HEENT:? Pupils equal and reactive, sclerae is clear, ET tube in place Neck:? Supple Respiratory:? Clear to auscultation bilaterally, decreased at bases, adequate air entry, no wheezing Cardiac:? S1-S2 was normal, regular rate and rhythm Abdomen:? Soft, non distended, no tenderness, hypoactive bowel sounds, Extremities:? No edema, palpable pedal pulses Neuro:? Patient is intubated, sedated, Opens her eyes to name and follows simple commands in her feet bilaterally, did not squeeze fingers Skin:? Warm and dry Objective Data Vital Signs Vital Signs: Vital Signs - 24 hr 01/30/24 09:00 01/30/24 09:11 01/30/24 09:30 Temperature 100.1 F H Pulse Rate 77 82 65 Respiratory Rate 22 H 22 H 22 H Blood Pressure 101/45 L Pulse Oximetry 96 Oxygen Delivery Fraction of Inspired Oxygen 01/30/24 10:08 01/30/24 10:08 01/30/24 10:09 Temperature Pulse Rate 62 65 65 Respiratory Rate 24 H 24 H 24 H Blood Pressure Pulse Oximetry Oxygen Delivery Fraction of Inspired Oxygen 01/30/24 10:00 01/30/24 10:00 01/30/24 11:07 Temperature 100.0 F H Pulse Rate 64 63 77 Respiratory Rate 24 H 23 H Blood Pressure 116/52 L Pulse Oximetry 95 Oxygen Delivery Fraction of Inspired Oxygen 01/30/24 11:08 01/30/24 11:09 01/30/24 10:15 Temperature Pulse Rate 74 82 64 Respiratory Rate 23 H 23 H Blood Pressure Pulse Oximetry 95 Oxygen Delivery Mechanical Ventilation Fraction of Inspired Oxygen 40 01/30/24 10:27 01/30/24 11:12 01/30/24 11:30 Temperature 100.0 F H 100.4 F H Pulse Rate 87 92 Respiratory Rate 23 H Blood Pressure 100/48 L 162/85 H Pulse Oximetry 94 93 92 Oxygen Delivery Mechanical Ventilation Fraction of Inspired Oxygen 35 01/30/24 12:24 01/30/24 12:00 01/30/24 12:00 Temperature Pulse Rate 85 85 87 Respiratory Rate 22 H 22 H 23 H Blood Pressure Pulse Oximetry Oxygen Delivery Fraction of Inspired Oxygen 01/30/24 12:00 01/30/24 12:00 01/30/24 12:00 Temperature Pulse Rate 85 Respiratory Rate Blood Pressure Pulse Oximetry Oxygen Delivery Mechanical Ventilation Fraction of Inspired Oxygen 35 35 01/30/24 12:00 01/30/24 13:00 01/30/24 13:00 Temperature 100.5 F H Pulse Rate 93 86 86 Respiratory Rate 23 H 22 H 23 H Blood Pressure 151/85 H 116/95 H Pulse Oximetry 91 92 Oxygen Delivery Fraction of Inspired Oxygen 01/30/24 13:29 01/30/24 13:29 01/30/24 14:09 Temperature 101.4 F H Pulse Rate 85 85 Respiratory Rate 27 H Blood Pressure Pulse Oximetry 93 Oxygen Delivery Mechanical Ventilation Fraction of Inspired Oxygen 35 01/30/24 14:05 01/30/24 14:05 01/30/24 14:00 Temperature Pulse Rate 85 85 84 Respiratory Rate 26 H 24 H Blood Pressure Pulse Oximetry Oxygen Delivery Fraction of Inspired Oxygen 01/30/24 14:00 01/30/24 14:00 01/30/24 14:00 Temperature 101.4 F H 101.6 F H Pulse Rate 86 87 71 Respiratory Rate 24 H 25 H 27 H Blood Pressure 149/53 H 149/53 H Pulse Oximetry 93 92 Oxygen Delivery Fraction of Inspired Oxygen 01/30/24 15:09 01/30/24 16:00 01/30/24 16:00 Temperature 102 F H 101.8 F H Pulse Rate 85 Respiratory Rate 22 H Blood Pressure 151/57 H Pulse Oximetry 96 Oxygen Delivery Mechanical Ventilation Fraction of Inspired Oxygen 35 01/30/24 16:00 01/30/24 16:00 01/30/24 16:00 Temperature Pulse Rate 82 77 Respiratory Rate 25 H Blood Pressure Pulse Oximetry Oxygen Delivery Fraction of Inspired Oxygen 35 01/30/24 16:00 01/30/24 16:00 01/30/24 16:30 Temperature Pulse Rate 77 77 79 Respiratory Rate 24 H 24 H Blood Pressure Pulse Oximetry 95 Oxygen Delivery Mechanical Ventilation Fraction of Inspired Oxygen 35 01/30/24 17:00 01/30/24 17:14 01/30/24 17:14 Temperature Pulse Rate 81 64 64 Respiratory Rate 23 H 23 H Blood Pressure 137/74 Pulse Oximetry 93 Oxygen Delivery Fraction of Inspired Oxygen 01/30/24 17:00 01/30/24 17:00 01/30/24 18:09 Temperature 101.8 F H Pulse Rate 83 83 Respiratory Rate 28 H 28 H Blood Pressure Pulse Oximetry Oxygen Delivery Fraction of Inspired Oxygen 01/30/24 18:00 01/30/24 18:00 01/30/24 18:00 Temperature Pulse Rate 63 62 63 Respiratory Rate 22 H 22 H Blood Pressure 101/45 L Pulse Oximetry 95 Oxygen Delivery Fraction of Inspired Oxygen 01/30/24 18:00 01/30/24 18:00 01/30/24 19:45 Temperature 101.8 F H Pulse Rate 63 63 61 Respiratory Rate 22 H 22 H Blood Pressure 101/45 L 88/36 L Pulse Oximetry 94 Oxygen Delivery Fraction of Inspired Oxygen 01/30/24 20:28 01/30/24 20:27 01/30/24 20:38 Temperature Pulse Rate 64 64 Respiratory Rate 23 H Blood Pressure Pulse Oximetry 97 97 Oxygen Delivery Mechanical Ventilation Mechanical Ventilation Fraction of Inspired Oxygen 35 35 01/30/24 19:09 01/30/24 20:00 01/30/24 20:00 Temperature 101.7 F H Pulse Rate 64 79 Respiratory Rate 23 H Blood Pressure 162/58 H Pulse Oximetry Oxygen Delivery Fraction of Inspired Oxygen 01/30/24 20:15 01/30/24 20:30 01/30/24 20:45 Temperature Pulse Rate 77 64 81 Respiratory Rate 27 H Blood Pressure 164/66 H 165/76 H Pulse Oximetry Oxygen Delivery Fraction of Inspired Oxygen 01/30/24 19:15 01/30/24 20:15 01/30/24 20:00 Temperature Pulse Rate 62 64 71 Respiratory Rate 24 H 23 H 22 H Blood Pressure Pulse Oximetry Oxygen Delivery Fraction of Inspired Oxygen 01/30/24 20:45 01/30/24 21:00 01/30/24 21:00 Temperature Pulse Rate 82 82 82 Respiratory Rate 23 H Blood Pressure 158/62 H 139/59 L Pulse Oximetry Oxygen Delivery Fraction of Inspired Oxygen 01/30/24 21:15 01/30/24 19:01 01/30/24 19:31 Temperature 101.7 F H 101.7 F H Pulse Rate 66 60 61 Respiratory Rate 26 H 22 H 24 H Blood Pressure 104/45 L 86/38 L Pulse Oximetry 95 94 Oxygen Delivery Fraction of Inspired Oxygen 01/30/24 19:36 01/30/24 19:37 01/30/24 19:58 Temperature 101.7 F H 101.7 F H 101.5 F H Pulse Rate 61 61 64 Respiratory Rate 24 H 24 H 22 H Blood Pressure 88/38 L 88/36 L 162/58 H Pulse Oximetry 95 94 98 Oxygen Delivery Fraction of Inspired Oxygen 01/30/24 20:02 01/30/24 20:17 01/30/24 20:38 Temperature 101.5 F H 101.5 F H 101.6 F H Pulse Rate 64 74 81 Respiratory Rate 23 H 22 H 21 H Blood Pressure 160/58 H 164/66 H 165/76 H Pulse Oximetry 98 97 95 Oxygen Delivery Fraction of Inspired Oxygen 01/30/24 20:46 01/30/24 21:01 01/30/24 21:53 Temperature 101.6 F H 101.5 F H Pulse Rate 78 77 68 Respiratory Rate 25 H 23 H 27 H Blood Pressure 158/62 H 139/59 L Pulse Oximetry 93 92 Oxygen Delivery Fraction of Inspired Oxygen 01/30/24 21:53 01/30/24 20:00 01/30/24 20:00 Temperature Pulse Rate 68 Respiratory Rate 27 H Blood Pressure Pulse Oximetry Oxygen Delivery Mechanical Ventilation Fraction of Inspired Oxygen 35 35 01/30/24 20:00 01/30/24 22:00 01/30/24 21:16 Temperature 101.4 F H Pulse Rate 63 57 L 63 Respiratory Rate 24 H Blood Pressure 133/49 L Pulse Oximetry 91 Oxygen Delivery Fraction of Inspired Oxygen 01/30/24 21:31 01/30/24 21:46 01/30/24 22:01 Temperature 101.3 F H 101.2 F H 101.1 F H Pulse Rate 61 61 57 L Respiratory Rate 23 H 23 H 24 H Blood Pressure 126/51 L 123/50 L 125/55 L Pulse Oximetry 91 91 91 Oxygen Delivery Fraction of Inspired Oxygen 01/30/24 22:16 01/30/24 22:31 01/30/24 22:46 Temperature 101.0 F H 101.0 F H 100.9 F H Pulse Rate 58 L 56 L 57 L Respiratory Rate 22 H 22 H 22 H Blood Pressure 121/52 L 122/51 L 122/54 L Pulse Oximetry 92 94 95 Oxygen Delivery Fraction of Inspired Oxygen 01/31/24 00:00 01/31/24 00:00 01/31/24 00:00 Temperature Pulse Rate 50 L Respiratory Rate Blood Pressure Pulse Oximetry Oxygen Delivery Mechanical Ventilation Fraction of Inspired Oxygen 35 35 01/30/24 22:00 01/31/24 00:00 01/30/24 22:00 Temperature Pulse Rate 59 L 51 L 59 L Respiratory Rate 24 H Blood Pressure 125/55 L 110/49 L Pulse Oximetry Oxygen Delivery Fraction of Inspired Oxygen 01/30/24 23:00 01/31/24 00:00 01/31/24 01:00 Temperature Pulse Rate 56 L 51 L 71 Respiratory Rate 22 H 22 H 24 H Blood Pressure Pulse Oximetry Oxygen Delivery Fraction of Inspired Oxygen 01/30/24 21:00 01/30/24 22:00 01/30/24 23:00 Temperature Pulse Rate 81 59 L 56 L Respiratory Rate 22 H 24 H 22 H Blood Pressure Pulse Oximetry Oxygen Delivery Fraction of Inspired Oxygen 01/31/24 00:00 01/31/24 00:01 01/31/24 00:16 Temperature 100.6 F H 100.5 F H Pulse Rate 51 L 51 L 50 L Respiratory Rate 22 H 22 H 22 H Blood Pressure 110/49 L 108/49 L Pulse Oximetry 92 92 Oxygen Delivery Fraction of Inspired Oxygen 01/31/24 00:31 01/31/24 00:46 01/31/24 00:55 Temperature 100.4 F H 100.3 F H 100.2 F H Pulse Rate 65 70 72 Respiratory Rate 22 H 22 H 28 H Blood Pressure 114/45 L 97/40 L 107/41 L Pulse Oximetry 91 92 92 Oxygen Delivery Fraction of Inspired Oxygen 01/31/24 01:00 01/31/24 01:01 01/30/24 23:00 Temperature 100.2 F H 100.2 F H Pulse Rate 70 69 56 L Respiratory Rate 21 H 22 H Blood Pressure 102/39 L Pulse Oximetry 92 91 100 Oxygen Delivery Mechanical Ventilation Fraction of Inspired Oxygen 35 01/30/24 20:42 01/31/24 02:00 01/31/24 02:00 Temperature Pulse Rate 67 68 68 Respiratory Rate 23 H 29 H Blood Pressure Pulse Oximetry Oxygen Delivery Fraction of Inspired Oxygen 01/30/24 22:00 01/31/24 00:00 01/31/24 02:00 Temperature Pulse Rate 59 L 51 L 68 Respiratory Rate 24 H 22 H 29 H Blood Pressure Pulse Oximetry Oxygen Delivery Fraction of Inspired Oxygen 01/31/24 01:16 01/31/24 01:31 01/31/24 01:46 Temperature 100.1 F H 100.0 F H 100.0 F H Pulse Rate 67 67 65 Respiratory Rate 21 H 30 H 23 H Blood Pressure 107/45 L 110/45 L 125/52 L Pulse Oximetry 91 88 L 89 L Oxygen Delivery Fraction of Inspired Oxygen 01/31/24 02:01 01/31/24 02:23 01/31/24 02:25 Temperature 100.1 F H Pulse Rate 68 67 67 Respiratory Rate 29 H 26 H Blood Pressure 129/48 L Pulse Oximetry 87 L 92 Oxygen Delivery Mechanical Ventilation Fraction of Inspired Oxygen 35 01/31/24 03:30 01/31/24 03:30 01/31/24 03:54 Temperature Pulse Rate 67 67 Respiratory Rate 27 H 27 H Blood Pressure Pulse Oximetry Oxygen Delivery Mechanical Ventilation Fraction of Inspired Oxygen 35 01/31/24 04:00 01/31/24 04:00 01/31/24 02:16 Temperature 100.2 F H Pulse Rate 65 67 Respiratory Rate 22 H Blood Pressure 127/54 L Pulse Oximetry 90 Oxygen Delivery Fraction of Inspired Oxygen 35 01/31/24 02:31 01/31/24 03:21 01/31/24 03:31 Temperature 100.2 F H 99.6 F 99.5 F Pulse Rate 72 68 67 Respiratory Rate 22 H 22 H 25 H Blood Pressure 130/50 L 132/58 L 122/56 L Pulse Oximetry 93 94 92 Oxygen Delivery Fraction of Inspired Oxygen 01/31/24 03:45 01/31/24 03:46 01/31/24 04:00 Temperature 99.4 F 99.4 F 99.3 F Pulse Rate 54 L 53 L 64 Respiratory Rate 22 H 21 H 21 H Blood Pressure 121/52 L Pulse Oximetry 93 93 94 Oxygen Delivery Fraction of Inspired Oxygen 01/31/24 04:01 01/31/24 04:00 01/31/24 04:00 Temperature 99.3 F Pulse Rate 63 65 65 Respiratory Rate 23 H 22 H 22 H Blood Pressure 133/54 L Pulse Oximetry 94 Oxygen Delivery Fraction of Inspired Oxygen 01/31/24 02:30 01/31/24 05:30 01/31/24 06:00 Temperature Pulse Rate 69 61 61 Respiratory Rate 26 H 22 H Blood Pressure Pulse Oximetry 95 Oxygen Delivery Mechanical Ventilation Fraction of Inspired Oxygen 35 01/31/24 06:00 01/31/24 06:00 01/31/24 05:01 Temperature 99.2 F Pulse Rate 61 60 62 Respiratory Rate 22 H 21 H Blood Pressure 113/61 Pulse Oximetry 94 Oxygen Delivery Fraction of Inspired Oxygen 01/31/24 06:01 01/31/24 07:30 01/31/24 07:30 Temperature 99.3 F Pulse Rate 60 59 L 59 L Respiratory Rate 21 H 23 H Blood Pressure 133/56 L Pulse Oximetry 96 96 Oxygen Delivery Mechanical Ventilation Fraction of Inspired Oxygen 35 01/31/24 07:40 01/31/24 08:05 Temperature Pulse Rate 62 Respiratory Rate 24 H Blood Pressure Pulse Oximetry Oxygen Delivery Mechanical Ventilation Fraction of Inspired Oxygen 35 Intake/Output Intake/Output: Intake & Output 01/28/24 01/29/24 01/30/24 01/31/24 23:59 23:59 23:59 23:59 Intake Total 1968.9 1565.7 2075.9 868.0 Output Total 4450 3000 3675 625 Balance -2481.1 -1434.3 -1599.1 243.0 Meds/Results Medications: Active Medications Generic Name Dose Route Start Last Admin Trade Name Freq PRN Reason Stop Dose Admin Acetaminophen 650 mg 01/20/24 10:08 01/30/24 18:09 Acetaminophen 325 Mg Tablet PO 650 mg Q4H PRN Administration Mild Pain (1-3) or Fever Acetylcysteine 200 mg 01/28/24 14:00 01/31/24 07:30 Acetylcysteine 20% Inhal Soln 800 Mg/4 Ml Vial INHALATION 200 mg Q6HRT EDMOND Administration Albuterol/Ipratropium 3 ml 01/22/24 14:00 01/31/24 07:30 Ipratropium 0.5 Mg/Albuterol Sulfate 2.5 Mg Ampul.Neb 3 Ml INHALATION 3 ml Q6HRT EDMOND Administration Aspirin 81 mg 01/19/24 08:00 01/30/24 07:50 Aspirin 81 Mg Chewable Tablet PO 81 mg DAILY@0800 EDMOND Administration Atorvastatin Calcium 40 mg 01/19/24 09:00 01/30/24 07:51 Atorvastatin 40 Mg Tablet PO 40 mg DAILY EDMOND Administration Clopidogrel Bisulfate 75 mg 01/19/24 09:00 01/30/24 07:51 Clopidogrel Bisulfate 75 Mg Tablet PO 75 mg DAILY EDMOND Administration Dextrose 12.5 gm 01/18/24 23:28 Dextrose 50% 25 Gm/50 Ml Syringe IV PUSH PRN PRN Hypoglycemia Protocol Glucagon 1 mg 01/18/24 23:28 Glucagon For Inj 1 Mg Vial IM PRN PRN Hypoglycemia Protocol Glucose 15 gm 01/18/24 23:28 Glucose Oral Gel 15 Gm Of Glucse In 37.5 Gm Tube PO PRN PRN Hypoglycemia Protocol Heparin Sodium (Porcine) 4,500 units 01/18/24 23:25 01/26/24 17:28 Heparin Sodium 5,000 Units/Ml Vial IV PUSH 4,500 units PRN PRN Administration aPTT less than 55 seconds Heparin Sodium (Porcine) 2,500 units 01/18/24 23:25 01/24/24 06:17 Heparin Sodium 5,000 Units/Ml Vial IV PUSH 2,500 units PRN PRN Administration aPTT 55 - 70 seconds Heparin Sodium/Dextrose 25,000 units in 250 mls @ 0 mls/hr 01/18/24 23:25 01/27/24 14:00 Heparin Sodium/D5w 100 Units/Ml IV CONT Infused .Q0M EDMOND Titration Protocol 0 UNITS/HR Dextrose 1,000 mls @ 100 mls/hr 01/18/24 23:28 Dextrose 5% 1,000 Ml IVPB PRN PRN Hypoglycemia Protocol Fentanyl Citrate 2,500 mcg in 250 mls @ 0 mls/hr 01/21/24 07:40 01/31/24 00:00 Fentanyl 2,500 Mcg/Ns 250 Ml IV CONT 0 mcg/hr .Q0M EDMOND 0 mls/hr Titration Protocol 0 MCG/HR Norepinephrine Bitartrate 8 mg in 250 mls @ 0 mls/hr 01/22/24 08:05 01/31/24 01:44 Levophed 8 Mg/D5w 250 Ml IV CONT Not Given .Q0M EDMOND Protocol 0 MCG/MIN Insulin Human Regular 100 100 mls @ 1 mls/hr 01/23/24 08:15 01/25/24 22:11 units/ Sodium Chloride IV CONT Not Given .Q24H EDMOND Protocol 1 UNITS/HR Albumin Human 50 mls @ 999 mls/hr 01/26/24 11:40 01/27/24 09:51 Albutein IVPB 02/25/24 11:39 999 mls/hr Q10M PRN Administration HYPOTENSION Dexmedetomidine HCl 400 mcg in 100 mls @ 17.46 mls/hr 01/30/24 08:40 01/31/24 06:00 Precedex 400 Mcg/100 Ml IV CONT 0.9 mcg/kg/hr .Q5H44M EDMOND 17.46 mls/hr Titration Protocol 0.9 MCG/KG/HR Propofol 100 mls @ 9.312 mls/hr 01/30/24 20:20 01/31/24 06:00 Diprivan IV CONT 20 mcg/kg/min .[id number] EDMOND 9.31 mls/hr Titration Protocol 20 MCG/KG/MIN Vancomycin HCl 1,250 mg in 250 mls @ 166.667 mls/hr 01/31/24 10:00 Vancomycin 1,250 Mg/Ns 250 Ml IVPB 01/31/24 11:29 ONCE ONE Insulin Aspart 4 - 8 units 01/19/24 12:00 01/31/24 05:04 Insulin Aspart (*Bkc) 100 Units/Ml SUB-Q 4 units Q4H EDMOND Administration Protocol Insulin Glargine 65 units 01/26/24 09:00 01/30/24 07:56 Insulin Glargine (*Bkc) 100 Units/Ml SUB-Q 65 units QAM EDMOND Administration Levothyroxine Sodium 112 mcg 01/19/24 06:30 01/31/24 05:05 Levothyroxine Sodium 112 Mcg Tablet PO 112 mcg DAILY@0630 EDMOND Administration Midazolam HCl 4 mg 01/21/24 09:35 01/30/24 16:56 Midazolam Hcl (*Crx) 2 Mg/2 Ml Vial IV PUSH 4 mg PRN PRN Administration Sedation Multi-Ingred Cream/Lotion/Oil/Oint 1 applic 01/21/24 09:00 01/30/24 20:45 Mineral Oil/White Petrolatum Ointment EACH EYE 1 applic Q12HR EDMOND Administration Ondansetron HCl 4 mg 01/18/24 22:13 Ondansetron Inj 4 Mg/2 Ml Vial IV PUSH Q4H PRN Nausea Pantoprazole Sodium 40 mg 01/19/24 09:00 01/30/24 20:44 Pantoprazole Sodium Iv 40 Mg Vial IV PUSH 40 mg Q12HR EDMOND Administration Polyethylene Glycol 17 gm 01/29/24 10:19 Polyethylene Glycol 3350 17 Gm Powd.Pack PO QAM PRN Constipation Vancomycin HCl 1 each 01/30/24 09:16 Vancomycin For Acute Kidney Injury IVPB PRN PRN Vancomycin Protocol Radiology Results: ITS Impressions Chest/Abdomen/Pelvis CTA 01/18/24 18:30 IMPRESSION: Nonocclusive acute subsegmental pulmonary embolus in the left lower lobe. Very small clot burden. No evidence of right heart strain. Left lower lobe pneumonia. Mild hepatomegaly. Possible cystitis. Otherwise, no acute abdominopelvic process detected. Chest/Abdomen/Pelvis CT 01/22/24 12:43 IMPRESSION: Worsening respiratory status with bibasilar consolidation and interstitial thickening with patchy groundglass opacification bilaterally -findings suggesting ARDS. Mural thickening within the rectosigmoid colon with multiple diverticula and prominence of the vasa recta, possibly early diverticulitis. Interval development of perihepatic fluid, compared with previous study. Renal Ultrasound 01/24/24 12:05 IMPRESSION: 1. Normal kidneys without hydronephrosis. Abdomen X-Ray 01/25/24 14:53 IMPRESSION: NG tube in distal stomach Nonspecific abdomen Venous Doppler Study 01/30/24 14:52 IMPRESSION: 1. Small amount of nonocclusive deep venous thrombosis at the right common femoral vein reported site of a recently removed central venous catheter. No other deep venous thrombosis in the remainder of the bilateral lower limbs. Chest X-Ray 01/31/24 06:16 IMPRESSION: Stable or mildly improved extensive bilateral pulmonary infiltrates, most prominent in the lower lobes, especially left lower lobe Labs Labs: Laboratory Results - last 24 hr 01/30/24 01/30/24 01/30/24 04:38 07:51 11:33 WBC RBC Hgb Hct MCV MCH MCHC RDW Plt Count MPV Immature Gran % (Auto) Neut % (Auto) Lymph % (Auto) [place] % (Auto) Eos % (Auto) Baso % (Auto) Lymph # (Auto) [place] # (Auto) Eos # (Auto) Baso # (Auto) Abs Immat Gran (auto) Absolute Neuts (auto) Absolute Nucleated RBC Nucleated RBC % Puncture Site ABG pH ABG pCO2 ABG pO2 ABG PO2/FiO2 Ratio ABG HCO3 ABG O2 Saturation ABG O2 Content ABG Base Excess A-a Gradient Oxyhemoglobin Carboxyhemoglobin Methemoglobin Reduced Hemoglobin Total Hemoglobin O2 Delivery Device O2 Liters/Min Minute Volume Vent Rate Vent Mode FiO2 Tidal Volume PEEP Peak Inspir Pressure Pressure Support Sodium Potassium Chloride Carbon Dioxide Anion Gap BUN Creatinine Estim Creat Clear Calc Estimated GFR Glucose POC Capillary Glucose 249 H 196 H Lactic Acid Calcium Phosphorus Magnesium Iron TIBC % Saturation Ferritin Total Bilirubin AST ALT Alkaline Phosphatase Total Protein Albumin Triglycerides Vitamin B12 > 1000.0 H Folate 19.6 Random Vancomycin 01/30/24 01/30/24 01/31/24 15:42 20:37 00:13 WBC RBC Hgb Hct MCV MCH MCHC RDW Plt Count MPV Immature Gran % (Auto) Neut % (Auto) Lymph % (Auto) [place] % (Auto) Eos % (Auto) Baso % (Auto) Lymph # (Auto) [place] # (Auto) Eos # (Auto) Baso # (Auto) Abs Immat Gran (auto) Absolute Neuts (auto) Absolute Nucleated RBC Nucleated RBC % Puncture Site ABG pH ABG pCO2 ABG pO2 ABG PO2/FiO2 Ratio ABG HCO3 ABG O2 Saturation ABG O2 Content ABG Base Excess A-a Gradient Oxyhemoglobin Carboxyhemoglobin Methemoglobin Reduced Hemoglobin Total Hemoglobin O2 Delivery Device O2 Liters/Min Minute Volume Vent Rate Vent Mode FiO2 Tidal Volume PEEP Peak Inspir Pressure Pressure Support Sodium Potassium Chloride Carbon Dioxide Anion Gap BUN Creatinine Estim Creat Clear Calc Estimated GFR Glucose POC Capillary Glucose 219 H 240 H 228 H Lactic Acid Calcium Phosphorus Magnesium Iron TIBC % Saturation Ferritin Total Bilirubin AST ALT Alkaline Phosphatase Total Protein Albumin Triglycerides Vitamin B12 Folate Random Vancomycin 01/31/24 01/31/24 01/31/24 05:03 05:18 05:34 WBC 13.8 H RBC 2.71 L Hgb 8.6 L Hct 26.8 L MCV 98.9 MCH 31.7 MCHC 32.1 RDW 15.7 H Plt Count 301 MPV 10.7 H Immature Gran % (Auto) 3.2 H Neut % (Auto) 76.3 H Lymph % (Auto) 13.3 L [place] % (Auto) 5.4 Eos % (Auto) 1.5 Baso % (Auto) 0.3 Lymph # (Auto) 1.83 [place] # (Auto) 0.7 H Eos # (Auto) 0.2 Baso # (Auto) 0.0 Abs Immat Gran (auto) 0.44 H Absolute Neuts (auto) 10.5 H Absolute Nucleated RBC 0.000 Nucleated RBC % 0.0 Puncture Site Right radial ABG pH 7.491 H ABG pCO2 35.7 ABG pO2 63.9 L ABG PO2/FiO2 Ratio 1.83 ABG HCO3 26.7 H ABG O2 Saturation 94.1 L ABG O2 Content 17.9 ABG Base Excess 3.5 A-a Gradient 144.2 Oxyhemoglobin 91.6 Carboxyhemoglobin 1.3 Methemoglobin 0.1 Reduced Hemoglobin 7.0 H Total Hemoglobin 13.9 O2 Delivery Device Ventilator O2 Liters/Min Not Reportable Minute Volume Not Reportable Vent Rate 22 Vent Mode Cmv FiO2 35 Tidal Volume 360 PEEP 8 Peak Inspir Pressure Not Reportable Pressure Support Not Reportable Sodium 142 Potassium 4.1 Chloride 103 Carbon Dioxide 29 Anion Gap 10 BUN 63 H Creatinine 1.50 H Estim Creat Clear Calc 29 Estimated GFR 34 L Glucose 257 H POC Capillary Glucose 242 H Lactic Acid 1.4 Calcium 9.0 Phosphorus 6.1 H Magnesium 2.1 Iron 25 L TIBC 251 L % Saturation 10 L Ferritin 122.00 Total Bilirubin 0.9 AST 47 H ALT 31 Alkaline Phosphatase 127 H Total Protein 8.0 Albumin 3.6 Triglycerides 120 Vitamin B12 Folate Random Vancomycin 18.6 Quality VTE Prophylaxis VTE prophylaxis: pharmacologic ordered (Heparin GGT per protocol)
[2024-01-31] MEDS: CLOPIDOGREL BISULFATE 75 MG TABLET PO (09:10)
[2024-01-31] MEDS: ATORVASTATIN 40 MG TABLET PO (09:11)
[2024-01-31] MEDS: MINERAL OIL/WHITE PETROLATUM OINTMENT 1 APPLIC EACH EYE (09:11)
[2024-01-31] MEDS: ASPIRIN 81 MG CHEWABLE TABLET PO (09:11)
[2024-01-31] MEDS: PANTOPRAZOLE SODIUM IV 40 MG VIAL IV PUSH ×2 (09:11→20:35)
[2024-01-31] MEDS: VANCOMYCIN 1,250 MG/NS 250 ML 1,250 MG/250 ML BAG 166.67 MG IVPB (09:13)
[2024-01-31] MEDS: INSULIN GLARGINE (*BKC) 100 UNITS/ML 65 UNITS SUB-Q (09:16)
[2024-01-31 09:30] LABS: Glucose Point of Care 236 mg/dl (65-105)
[2024-01-31] MEDS: dexmedeTOMIDine 400 MCG/100 ML 400 MCG/100 ML BAG 13.58 MCG IV CONT (09:50)
[2024-01-31] MEDS: AMPICILLIN SULB 3 GM/NS 100 ML 3 GM/100 ML VIAL IVPB ×3 (10:36→20:28)
[2024-01-31] MEDS: INSULIN GLARGINE (*BKC) 100 UNITS/ML 10 UNITS SUB-Q (10:36)
[2024-01-31] MEDS: PROPOFOL IV EMULSION 100 ML 4.66 MG IV CONT (10:42)
--- NOTE | 2024-01-31 11:25 | PM.IMPN ---
Progress Note: A&P Assessment and Plan (1) Acute respiratory failure: Code(s): J96.00 - Acute respiratory failure, unspecified whether with hypoxia or hypercapnia Status: Acute Assessment and Plan: Acute Respiratory failure secondary to pneumonia and PE. Patient appears to have developed ARDS Patient had became CPAP dependent 100% FiO2. Forty of Lasix given IV last night without any significant improvement. Patient does not have any edema on lower extremity suggestive of heart failure. Echo reviewed. 01/20 patient intubated for discussion with the patient and her daughter. ABG reviewed and low tidal volume ventilation. PEEP set at 12 tidal volume at 300 mL. FiO2 is 100%. Increase respiratory rate to 26 continue Sedation and weaning protocol per [employer] CT head this morning patient is not progressing as expected (2) Septic shock: Code(s): A41.9 - Sepsis, unspecified organism; R65.21 - Severe sepsis with septic shock Status: Acute Assessment and Plan: Secondary to pneumonia 01/17: Patient presented with hypotension, elevated lactic acid levels, fevers, cough, hypoxia -received 30 mL/kg IV fluids -started on Levophed via femoral central line - Off IV fluids vasopressors now -01/17: Blood cultures have been obtained and negative till now MRSA screen negative Urine pneumococcal antigen negative Urine Legionella antigen pending Influenza RSV and COVID PCR negative 01/22: Sputum cultures growing MRSA, -continue vancomycin Last fever was 0030 today continue monitoring (3) Community acquired pneumonia: Qualifiers: Laterality: left Lung location: lower lobe of lung Qualified Code(s): J18.9 - Pneumonia, unspecified organism Code(s): J18.9 - Pneumonia, unspecified organism Status: Acute Assessment and Plan: See above (4) Diabetes: Code(s): E11.9 - Type 2 diabetes mellitus without complications Status: Acute Assessment and Plan: Uncontrolled Continue Accu-Cheks and sliding scale insulin Continue Lantus (5) Acute kidney injury: Code(s): N17.9 - Acute kidney failure, unspecified Status: Acute Assessment and Plan: Patient initially presented with Acute kidney injury likely related to hypotension, septic shock She was adequately fluid-resuscitated and came off of IV fluids Creatinine normalized initially Patient did receive contrast for CTA Creatinine increased post intubation. 01/22 Lasix IV x1 Patient was given 25% albumin and will give 5% albumin. Will avoid liberal fluids due to patient's respiratory status. Patient is positive her I/O balance 01/25: Creatinine continues to increase along with elevated BUN today. Urine output also decreasing. Dr Dunbar discussed with nephrology and family will plan to initiate dialysis. Temporary dialysis catheter placed after obtaining consent from patient's family. Discussed with nephrology. Bulb Brander will arrange for dialysis 01/25: Started dialysis with 1066 mL in fluid removal 01/26: Dialysis with 883 mL in fluid removal 01/27: Dialysis with 3000 mL in fluid removal 01/28: Diuresed with Bumex with good urine output and approx 1400 mL in negative fluid balance 03/31: Diuresis with Bumex with good urine output and approx 1600 mL in negative fluid balance (6) Pulmonary embolism: Code(s): I26.99 - Other pulmonary embolism without acute cor pulmonale Status: Acute Assessment and Plan: 01/18: Venous Dopplers negative 01/26: Heparin infusion is being held due to anemia and hematuria and drop in hemoglobin -will continue to monitor hemoglobin levels, if remains stable, may start Lovenox 1 mg/kg daily starting 01/27 01/27: Hemoglobin 7.0 this morning, will continue to hold anticoagulation, status post 1 unit of packed RBC 01/29: Venous Dopplers: Small amount of nonocclusive deep venous thrombosis at the right common femoral vein reported site of a recently removed central venous catheter. No other deep venous thrombosis in the remainder of the bilateral lower limbs. 01/17: CT chest abdomen and pelvis IMPRESSION: Nonocclusive acute subsegmental pulmonary embolus in the left lower lobe. Very small clot burden. No evidence of right heart strain. Left lower lobe pneumonia. Mild hepatomegaly. Possible cystitis. Otherwise, no acute abdominopelvic process detected. Echo Summary 1. Left ventricular systolic function is normal, estimated at 55-60%. 2. There is mildly increased left ventricular wall thickness. 3. The left ventricular diastolic function is grade I diastolic dysfunction. 4. There is trace mitral valve regurgitation. 5. There is trace tricuspid valve regurgitation. 6. No pulmonary hypertension, estimated pulmonary arterial systolic pressure is 41 mmHg. 7. Right ventricular systolic function is normal. 8. Right ventricular chamber dimension is normal. (7) Electrolyte abnormality: Code(s): E87.8 - Other disorders of electrolyte and fluid balance, not elsewhere classified Status: Acute Assessment and Plan: Sodium levels have improved -continue tube feed flushes (8) Diverticulitis: Code(s): K57.92 - Diverticulitis of intestine, part unspecified, without perforation or abscess without bleeding Status: Acute Assessment and Plan: CT abdomen pelvis showed Mural thickening within the rectosigmoid colon with multiple diverticula and prominence of the vasa recta, possibly early diverticulitis. Interval development of perihepatic fluid, compared with previous study. Status post ceftriaxone and Flagyl (9) Ileus: Code(s): K56.7 - Ileus, unspecified Status: Acute Assessment and Plan: Patient has been having high tube feed residuals, Reglan was started on 01/26/2024. Patient tolerating tube feeds better. Has been having bowel movements -01/28: tube feeds have been switched to Nepro on 01/27, currently at goal, positive bowel movements (10) Anemia: Code(s): D64.9 - Anemia, unspecified Status: Acute Assessment and Plan: Patient's hemoglobin has gradually trended down over last 4-5 days. She is on heparin infusion for PE. There has been no evidence of bleeding. Continue monitor this time. Transfuse if hemoglobin less than 7. Platelets are at acceptable level. She is also on aspirin Plavix for coronary disease She is on Protonix twice a day s/p 1 unit pRBC Hb 8.6, isat 10 however will hold IRon infusion until infection is under control (fever resolved ) (11) Encephalopathy: Code(s): G93.40 - Encephalopathy, unspecified Status: Acute Assessment and Plan: Patient was encephalopathic, was not initially opening her eyes or follows commands 01/30: -this morning she did open her eyes and follows simple commands on the lower extremities. 01/30: CT brain Cerebral atherosclerosis and chronic small vessel ischemic changes of the cerebral white matter No acute intracranial finding Moderate mucoperiosteal thickening of the left sphenoid sinus and partial opacification of mastoid air cells bilaterally Plan DVT prophylaxis: Heparin infusion has been stopped due to drop in hemoglobin, continue SCDs Stress ulcer prophylaxis: Protonix IV q.12 hours Nutrition: On Nepro, tube feeds at goal Code Status: 01/20 Dr Dunbar spoke to patient prior to intubation about cold and goals of care. She stated that she would like 1-2 rounds of resuscitation in case of cardiac arrest to see if she can be brought back but does not want prolonged resuscitation efforts. She also states that if she is unable to come off the ventilator in 2 weeks time she would not want a feeding tube and tracheostomy for long-term mechanical ventilation. Patient's daughter was at bedside and in agreement with patient's wishes Subjective Date/time seen: 01/31/24 11:25 Interval history: Patient appeared to have defervesced,last fever was [address] head this morning Review of Systems Review of Systems: 12 systems were reviewed with pertinent positives and negatives per HPI. Except as documented in the HPI, all other systems were reviewed and are negative. All systems reviewed & are unremarkable except as noted in HPI and below ROS unobtainable: Yes unobtainable due to endotracheal tube, unobtainable due to medical condition and unobtainable due to mental status Exam Narrative: General: Patient is intubated, sedated in no acute distress HEENT:? Pupils equal and reactive, sclerae is clear, ET tube in place Neck:? Supple Respiratory:? Clear to auscultation bilaterally, decreased at bases, adequate air entry, no wheezing Cardiac:? S1-S2 was normal, regular rate and rhythm Abdomen:? Soft, non distended, no tenderness, hypoactive bowel sounds, Extremities:? No edema, palpable pedal pulses Neuro:? Patient is intubated, sedated, Opens her eyes to name and follows simple commands in her feet bilaterally, did not squeeze fingers Skin:? Warm and dry Const: Other: Obese, mildly ill-appearing, appears stated age, BiPAP in place HENMT: Other: Oral exam limited due to BiPAP being in place, patient is edentulous in upper jaw, has multiple missing teeth in lower jaw, mucous membranes are dry, head is normocephalic atraumatic, fluid present behind the right tympanic membrane Eyes: Other: Pupils are equal and reactive, no scleral icterus, positive conjunctival pallor Neck: Other: Large neck circumference, no JVD irregular thyroid Resp: Other: Crackles in the left base, conversational tachypnea, no accessory muscle use, BiPAP in place Cardio: Other: Sinus tachycardia, 2+ bilateral radial pedal pulses, no murmur, no JVD GI: Other: Soft, nontender, nondistended, positive bowel sounds : Other: Pressley catheter in place with clear dark yellow urine Skin: Other: No jaundice, positive pallor, warm to touch Neuro: Other: Alert orient x4, speech is clear, no facial asymmetry although symmetry exam is limited due to presence of BiPAP, no gross motor deficits noted Extrem: Other: No clubbing, cyanosis or edema, no mottling, 5/5 pegger dobby looms strength bilateral, 5/5 strength dorsiflexion and plantar flexion bilateral Psych: Other: Appropriate mood and affect, pleasant and cooperative, judgment and insight intact Objective Data Vital Signs Vital Signs: Vital Signs - 24 hr 01/30/24 11:30 01/30/24 12:24 01/30/24 12:00 Temperature 100.4 F H Pulse Rate 92 85 85 Respiratory Rate 22 H 22 H Blood Pressure 162/85 H Pulse Oximetry 92 Oxygen Delivery Fraction of Inspired Oxygen 01/30/24 12:00 01/30/24 12:00 01/30/24 12:00 Temperature Pulse Rate 87 Respiratory Rate 23 H Blood Pressure Pulse Oximetry Oxygen Delivery Mechanical Ventilation Fraction of Inspired Oxygen 35 35 01/30/24 12:00 01/30/24 12:00 01/30/24 13:00 Temperature 100.5 F H Pulse Rate 85 93 86 Respiratory Rate 23 H 22 H Blood Pressure 151/85 H 116/95 H Pulse Oximetry 91 92 Oxygen Delivery Fraction of Inspired Oxygen 01/30/24 13:00 01/30/24 13:29 01/30/24 13:29 Temperature Pulse Rate 86 85 85 Respiratory Rate 23 H 27 H Blood Pressure Pulse Oximetry 93 Oxygen Delivery Mechanical Ventilation Fraction of Inspired Oxygen 35 01/30/24 14:09 01/30/24 14:05 01/30/24 14:05 Temperature 101.4 F H Pulse Rate 85 85 Respiratory Rate 26 H 24 H Blood Pressure Pulse Oximetry Oxygen Delivery Fraction of Inspired Oxygen 01/30/24 14:00 01/30/24 14:00 01/30/24 14:00 Temperature 101.4 F H Pulse Rate 84 86 87 Respiratory Rate 24 H 25 H Blood Pressure 149/53 H Pulse Oximetry 93 Oxygen Delivery Fraction of Inspired Oxygen 01/30/24 14:00 01/30/24 15:09 01/30/24 16:00 Temperature 101.6 F H 102 F H Pulse Rate 71 Respiratory Rate 27 H Blood Pressure 149/53 H Pulse Oximetry 92 Oxygen Delivery Mechanical Ventilation Fraction of Inspired Oxygen 35 01/30/24 16:00 01/30/24 16:00 01/30/24 16:00 Temperature 101.8 F H Pulse Rate 85 82 Respiratory Rate 22 H Blood Pressure 151/57 H Pulse Oximetry 96 Oxygen Delivery Fraction of Inspired Oxygen 35 01/30/24 16:00 01/30/24 16:00 01/30/24 16:00 Temperature Pulse Rate 77 77 77 Respiratory Rate 25 H 24 H 24 H Blood Pressure Pulse Oximetry Oxygen Delivery Fraction of Inspired Oxygen 01/30/24 16:30 01/30/24 17:00 01/30/24 17:14 Temperature Pulse Rate 79 81 64 Respiratory Rate 23 H Blood Pressure 137/74 Pulse Oximetry 95 93 Oxygen Delivery Mechanical Ventilation Fraction of Inspired Oxygen 35 01/30/24 17:14 01/30/24 17:00 01/30/24 17:00 Temperature Pulse Rate 64 83 83 Respiratory Rate 23 H 28 H 28 H Blood Pressure Pulse Oximetry Oxygen Delivery Fraction of Inspired Oxygen 01/30/24 18:09 01/30/24 18:00 01/30/24 18:00 Temperature 101.8 F H Pulse Rate 63 62 Respiratory Rate 22 H Blood Pressure 101/45 L Pulse Oximetry 95 Oxygen Delivery Fraction of Inspired Oxygen 01/30/24 18:00 01/30/24 18:00 01/30/24 18:00 Temperature 101.8 F H Pulse Rate 63 63 63 Respiratory Rate 22 H 22 H 22 H Blood Pressure 101/45 L Pulse Oximetry 94 Oxygen Delivery Fraction of Inspired Oxygen 01/30/24 19:45 01/30/24 20:28 01/30/24 20:27 Temperature Pulse Rate 61 64 64 Respiratory Rate 23 H Blood Pressure 88/36 L Pulse Oximetry 97 Oxygen Delivery Mechanical Ventilation Fraction of Inspired Oxygen 35 01/30/24 20:38 01/30/24 19:09 01/30/24 20:00 Temperature 101.7 F H Pulse Rate 64 Respiratory Rate 23 H Blood Pressure Pulse Oximetry 97 Oxygen Delivery Mechanical Ventilation Fraction of Inspired Oxygen 35 01/30/24 20:00 01/30/24 20:15 01/30/24 20:30 Temperature Pulse Rate 79 77 64 Respiratory Rate Blood Pressure 162/58 H 164/66 H 165/76 H Pulse Oximetry Oxygen Delivery Fraction of Inspired Oxygen 01/30/24 20:45 01/30/24 19:15 01/30/24 20:15 Temperature Pulse Rate 81 62 64 Respiratory Rate 27 H 24 H 23 H Blood Pressure Pulse Oximetry Oxygen Delivery Fraction of Inspired Oxygen 01/30/24 20:00 01/30/24 20:45 01/30/24 21:00 Temperature Pulse Rate 71 82 82 Respiratory Rate 22 H 23 H Blood Pressure 158/62 H Pulse Oximetry Oxygen Delivery Fraction of Inspired Oxygen 01/30/24 21:00 01/30/24 21:15 01/30/24 19:01 Temperature 101.7 F H Pulse Rate 82 66 60 Respiratory Rate 26 H 22 H Blood Pressure 139/59 L 104/45 L Pulse Oximetry 95 Oxygen Delivery Fraction of Inspired Oxygen 01/30/24 19:31 01/30/24 19:36 01/30/24 19:37 Temperature 101.7 F H 101.7 F H 101.7 F H Pulse Rate 61 61 61 Respiratory Rate 24 H 24 H 24 H Blood Pressure 86/38 L 88/38 L 88/36 L Pulse Oximetry 94 95 94 Oxygen Delivery Fraction of Inspired Oxygen 01/30/24 19:58 01/30/24 20:02 01/30/24 20:17 Temperature 101.5 F H 101.5 F H 101.5 F H Pulse Rate 64 64 74 Respiratory Rate 22 H 23 H 22 H Blood Pressure 162/58 H 160/58 H 164/66 H Pulse Oximetry 98 98 97 Oxygen Delivery Fraction of Inspired Oxygen 01/30/24 20:38 01/30/24 20:46 01/30/24 21:01 Temperature 101.6 F H 101.6 F H 101.5 F H Pulse Rate 81 78 77 Respiratory Rate 21 H 25 H 23 H Blood Pressure 165/76 H 158/62 H 139/59 L Pulse Oximetry 95 93 92 Oxygen Delivery Fraction of Inspired Oxygen 01/30/24 21:53 01/30/24 21:53 01/30/24 20:00 Temperature Pulse Rate 68 68 Respiratory Rate 27 H 27 H Blood Pressure Pulse Oximetry Oxygen Delivery Mechanical Ventilation Fraction of Inspired Oxygen 35 01/30/24 20:00 01/30/24 20:00 01/30/24 22:00 Temperature Pulse Rate 63 57 L Respiratory Rate Blood Pressure Pulse Oximetry Oxygen Delivery Fraction of Inspired Oxygen 35 01/30/24 21:16 01/30/24 21:31 01/30/24 21:46 Temperature 101.4 F H 101.3 F H 101.2 F H Pulse Rate 63 61 61 Respiratory Rate 24 H 23 H 23 H Blood Pressure 133/49 L 126/51 L 123/50 L Pulse Oximetry 91 91 91 Oxygen Delivery Fraction of Inspired Oxygen 01/30/24 22:01 01/30/24 22:16 01/30/24 22:31 Temperature 101.1 F H 101.0 F H 101.0 F H Pulse Rate 57 L 58 L 56 L Respiratory Rate 24 H 22 H 22 H Blood Pressure 125/55 L 121/52 L 122/51 L Pulse Oximetry 91 92 94 Oxygen Delivery Fraction of Inspired Oxygen 01/30/24 22:46 01/31/24 00:00 01/31/24 00:00 Temperature 100.9 F H Pulse Rate 57 L Respiratory Rate 22 H Blood Pressure 122/54 L Pulse Oximetry 95 Oxygen Delivery Mechanical Ventilation Fraction of Inspired Oxygen 35 35 01/31/24 00:00 01/30/24 22:00 01/31/24 00:00 Temperature Pulse Rate 50 L 59 L 51 L Respiratory Rate Blood Pressure 125/55 L 110/49 L Pulse Oximetry Oxygen Delivery Fraction of Inspired Oxygen 01/30/24 22:00 01/30/24 23:00 01/31/24 00:00 Temperature Pulse Rate 59 L 56 L 51 L Respiratory Rate 24 H 22 H 22 H Blood Pressure Pulse Oximetry Oxygen Delivery Fraction of Inspired Oxygen 01/31/24 01:00 01/30/24 21:00 01/30/24 22:00 Temperature Pulse Rate 71 81 59 L Respiratory Rate 24 H 22 H 24 H Blood Pressure Pulse Oximetry Oxygen Delivery Fraction of Inspired Oxygen 01/30/24 23:00 01/31/24 00:00 01/31/24 00:01 Temperature 100.6 F H Pulse Rate 56 L 51 L 51 L Respiratory Rate 22 H 22 H 22 H Blood Pressure 110/49 L Pulse Oximetry 92 Oxygen Delivery Fraction of Inspired Oxygen 01/31/24 00:16 01/31/24 00:31 01/31/24 00:46 Temperature 100.5 F H 100.4 F H 100.3 F H Pulse Rate 50 L 65 70 Respiratory Rate 22 H 22 H 22 H Blood Pressure 108/49 L 114/45 L 97/40 L Pulse Oximetry 92 91 92 Oxygen Delivery Fraction of Inspired Oxygen 01/31/24 00:55 01/31/24 01:00 01/31/24 01:01 Temperature 100.2 F H 100.2 F H 100.2 F H Pulse Rate 72 70 69 Respiratory Rate 28 H 21 H 22 H Blood Pressure 107/41 L 102/39 L Pulse Oximetry 92 92 91 Oxygen Delivery Fraction of Inspired Oxygen 01/30/24 23:00 01/30/24 20:42 01/31/24 02:00 Temperature Pulse Rate 56 L 67 68 Respiratory Rate 23 H Blood Pressure Pulse Oximetry 100 Oxygen Delivery Mechanical Ventilation Fraction of Inspired Oxygen 35 01/31/24 02:00 01/30/24 22:00 01/31/24 00:00 Temperature Pulse Rate 68 59 L 51 L Respiratory Rate 29 H 24 H 22 H Blood Pressure Pulse Oximetry Oxygen Delivery Fraction of Inspired Oxygen 01/31/24 02:00 01/31/24 01:16 01/31/24 01:31 Temperature 100.1 F H 100.0 F H Pulse Rate 68 67 67 Respiratory Rate 29 H 21 H 30 H Blood Pressure 107/45 L 110/45 L Pulse Oximetry 91 88 L Oxygen Delivery Fraction of Inspired Oxygen 01/31/24 01:46 01/31/24 02:01 01/31/24 02:23 Temperature 100.0 F H 100.1 F H Pulse Rate 65 68 67 Respiratory Rate 23 H 29 H Blood Pressure 125/52 L 129/48 L Pulse Oximetry 89 L 87 L 92 Oxygen Delivery Mechanical Ventilation Fraction of Inspired Oxygen 35 01/31/24 02:25 01/31/24 03:30 01/31/24 03:30 Temperature Pulse Rate 67 67 67 Respiratory Rate 26 H 27 H 27 H Blood Pressure Pulse Oximetry Oxygen Delivery Fraction of Inspired Oxygen 01/31/24 03:54 01/31/24 04:00 01/31/24 04:00 Temperature Pulse Rate 65 Respiratory Rate Blood Pressure Pulse Oximetry Oxygen Delivery Mechanical Ventilation Fraction of Inspired Oxygen 35 35 01/31/24 02:16 01/31/24 02:31 01/31/24 03:21 Temperature 100.2 F H 100.2 F H 99.6 F Pulse Rate 67 72 68 Respiratory Rate 22 H 22 H 22 H Blood Pressure 127/54 L 130/50 L 132/58 L Pulse Oximetry 90 93 94 Oxygen Delivery Fraction of Inspired Oxygen 01/31/24 03:31 01/31/24 03:45 01/31/24 03:46 Temperature 99.5 F 99.4 F 99.4 F Pulse Rate 67 54 L 53 L Respiratory Rate 25 H 22 H 21 H Blood Pressure 122/56 L 121/52 L Pulse Oximetry 92 93 93 Oxygen Delivery Fraction of Inspired Oxygen 01/31/24 04:00 01/31/24 04:01 01/31/24 04:00 Temperature 99.3 F 99.3 F Pulse Rate 64 63 65 Respiratory Rate 21 H 23 H 22 H Blood Pressure 133/54 L Pulse Oximetry 94 94 Oxygen Delivery Fraction of Inspired Oxygen 01/31/24 04:00 01/31/24 02:30 01/31/24 05:30 Temperature Pulse Rate 65 69 61 Respiratory Rate 22 H 26 H Blood Pressure Pulse Oximetry 95 Oxygen Delivery Mechanical Ventilation Fraction of Inspired Oxygen 35 01/31/24 06:00 01/31/24 06:00 01/31/24 06:00 Temperature Pulse Rate 61 61 60 Respiratory Rate 22 H 22 H Blood Pressure Pulse Oximetry Oxygen Delivery Fraction of Inspired Oxygen 01/31/24 05:01 01/31/24 06:01 01/31/24 07:30 Temperature 99.2 F 99.3 F Pulse Rate 62 60 59 L Respiratory Rate 21 H 21 H Blood Pressure 113/61 133/56 L Pulse Oximetry 94 96 96 Oxygen Delivery Mechanical Ventilation Fraction of Inspired Oxygen 35 01/31/24 07:30 01/31/24 07:40 01/31/24 08:05 Temperature Pulse Rate 59 L 62 Respiratory Rate 23 H 24 H Blood Pressure Pulse Oximetry Oxygen Delivery Mechanical Ventilation Fraction of Inspired Oxygen 35 01/31/24 08:00 01/31/24 08:00 01/31/24 08:00 Temperature 99.5 F Pulse Rate 52 L 52 L Respiratory Rate 22 H 22 H Blood Pressure 118/47 L Pulse Oximetry 94 Oxygen Delivery Fraction of Inspired Oxygen 35 01/31/24 08:00 01/31/24 09:46 01/31/24 09:24 Temperature Pulse Rate 52 L 53 L 66 Respiratory Rate 22 H 27 H Blood Pressure Pulse Oximetry 94 Oxygen Delivery Mechanical Ventilation Fraction of Inspired Oxygen 35 01/31/24 09:50 01/31/24 10:00 01/31/24 08:00 Temperature 99 F Pulse Rate 66 61 Respiratory Rate 27 H 25 H Blood Pressure 125/62 Pulse Oximetry 94 94 Oxygen Delivery Mechanical Ventilation Fraction of Inspired Oxygen 35 01/31/24 10:00 01/31/24 10:36 01/31/24 10:42 Temperature Pulse Rate 54 L 50 L 60 Respiratory Rate 22 H 20 20 Blood Pressure Pulse Oximetry Oxygen Delivery Fraction of Inspired Oxygen 01/31/24 08:00 01/31/24 10:00 Temperature Pulse Rate 63 61 Respiratory Rate Blood Pressure Pulse Oximetry Oxygen Delivery Fraction of Inspired Oxygen Intake/Output Intake/Output: Intake & Output 01/28/24 01/29/24 01/30/24 01/31/24 23:59 23:59 23:59 23:59 Intake Total 1968.9 1565.7 2075.9 962.6 Output Total 4450 3000 3675 625 Balance -2481.1 -1434.3 -1599.1 337.6 Meds/Results Medications: Active Medications Generic Name Dose Route Start Last Admin Trade Name Freq PRN Reason Stop Dose Admin Acetaminophen 650 mg 01/20/24 10:08 01/30/24 18:09 Acetaminophen 325 Mg Tablet PO 650 mg Q4H PRN Administration Mild Pain (1-3) or Fever Acetylcysteine 200 mg 01/28/24 14:00 01/31/24 07:30 Acetylcysteine 20% Inhal Soln 800 Mg/4 Ml Vial INHALATION 200 mg Q6HRT EDMOND Administration Albuterol/Ipratropium 3 ml 01/22/24 14:00 01/31/24 07:30 Ipratropium 0.5 Mg/Albuterol Sulfate 2.5 Mg Ampul.Neb 3 Ml INHALATION 3 ml Q6HRT EDMODN Administration Aspirin 81 mg 01/19/24 08:00 01/31/24 09:11 Aspirin 81 Mg Chewable Tablet PO 81 mg DAILY@0800 EDMOND Administration Atorvastatin Calcium 40 mg 01/19/24 09:00 01/31/24 09:11 Atorvastatin 40 Mg Tablet PO 40 mg DAILY EDMOND Administration Clopidogrel Bisulfate 75 mg 01/19/24 09:00 01/31/24 09:10 Clopidogrel Bisulfate 75 Mg Tablet PO 75 mg DAILY EDMOND Administration Dextrose 12.5 gm 01/18/24 23:28 Dextrose 50% 25 Gm/50 Ml Syringe IV PUSH PRN PRN Hypoglycemia Protocol Glucagon 1 mg 01/18/24 23:28 Glucagon For Inj 1 Mg Vial IM PRN PRN Hypoglycemia Protocol Glucose 15 gm 01/18/24 23:28 Glucose Oral Gel 15 Gm Of Glucse In 37.5 Gm Tube PO PRN PRN Hypoglycemia Protocol Dextrose 1,000 mls @ 100 mls/hr 01/18/24 23:28 Dextrose 5% 1,000 Ml IVPB PRN PRN Hypoglycemia Protocol Albumin Human 50 mls @ 999 mls/hr 01/26/24 11:40 01/27/24 09:51 Albutein IVPB 02/25/24 11:39 999 mls/hr Q10M PRN Administration HYPOTENSION Dexmedetomidine HCl 400 mcg in 100 mls @ 11.64 mls/hr 01/30/24 08:40 01/31/24 10:36 Precedex 400 Mcg/100 Ml IV CONT 0.6 mcg/kg/hr .Q8H36M EDMOND 11.64 mls/hr Titration Protocol 0.6 MCG/KG/HR Propofol 100 mls @ 4.656 mls/hr 01/30/24 20:20 01/31/24 10:42 Diprivan IV CONT 10 mcg/kg/min .P34H97L EDMOND 4.66 mls/hr Administration Protocol 10 MCG/KG/MIN Vancomycin HCl 1,250 mg in 250 mls @ 166.667 mls/hr 01/31/24 10:00 01/31/24 09:13 Vancomycin 1,250 Mg/Ns 250 Ml IVPB 01/31/24 11:29 166.67 mls/hr ONCE ONE Administration Ampicillin Sodium/Sulbactam Sodium 3 gm in 100 mls @ 200 mls/hr 01/31/24 15:00 Unasyn 3 Gm/Ns 100 Ml IVPB Q6H [facility] [place] Insulin Aspart 4 - 8 units 01/19/24 12:00 01/31/24 09:11 Insulin Aspart (*Bkc) 100 Units/Ml SUB-Q 4 units Q4H [facility] [place] Administration Protocol Insulin Glargine 75 units 02/01/24 09:00 Insulin Glargine (*Bkc) 100 Units/Ml SUB-Q QAM [facility] [place] Levothyroxine Sodium 112 mcg 01/19/24 06:30 01/31/24 05:05 Levothyroxine Sodium 112 Mcg Tablet PO 112 mcg DAILY@0630 [facility] [place] Administration Midazolam HCl 4 mg 01/21/24 09:35 01/30/24 16:56 Midazolam Hcl (*Crx) 2 Mg/2 Ml Vial IV PUSH 4 mg PRN PRN Administration Sedation Multi-Ingred Cream/Lotion/Oil/Oint 1 applic 01/21/24 09:00 01/31/24 09:11 Mineral Oil/White Petrolatum Ointment EACH EYE 1 applic Q12HR EDMOND Administration Ondansetron HCl 4 mg 01/18/24 22:13 Ondansetron Inj 4 Mg/2 Ml Vial IV PUSH Q4H PRN Nausea Pantoprazole Sodium 40 mg 01/19/24 09:00 01/31/24 09:11 Pantoprazole Sodium Iv 40 Mg Vial IV PUSH 40 mg Q12HR EDMOND Administration Polyethylene Glycol 17 gm 01/29/24 10:19 Polyethylene Glycol 3350 17 Gm Powd.Pack PO QAM PRN Constipation Vancomycin HCl 1 each 01/30/24 09:16 Vancomycin For Acute Kidney Injury IVPB PRN PRN Vancomycin Protocol Radiology Results: ITS Impressions Chest/Abdomen/Pelvis CTA 01/18/24 18:30 IMPRESSION: Nonocclusive acute subsegmental pulmonary embolus in the left lower lobe. Very small clot burden. No evidence of right heart strain. Left lower lobe pneumonia. Mild hepatomegaly. Possible cystitis. Otherwise, no acute abdominopelvic process detected. Chest/Abdomen/Pelvis CT 01/22/24 12:43 IMPRESSION: Worsening respiratory status with bibasilar consolidation and interstitial thickening with patchy groundglass opacification bilaterally -findings suggesting ARDS. Mural thickening within the rectosigmoid colon with multiple diverticula and prominence of the vasa recta, possibly early diverticulitis. Interval development of perihepatic fluid, compared with previous study. Renal Ultrasound 01/24/24 12:05 IMPRESSION: 1. Normal kidneys without hydronephrosis. Abdomen X-Ray 01/25/24 14:53 IMPRESSION: NG tube in distal stomach Nonspecific abdomen Venous Doppler Study 01/30/24 14:52 IMPRESSION: 1. Small amount of nonocclusive deep venous thrombosis at the right common femoral vein reported site of a recently removed central venous catheter. No other deep venous thrombosis in the remainder of the bilateral lower limbs. Chest X-Ray 01/31/24 06:16 IMPRESSION: Stable or mildly improved extensive bilateral pulmonary infiltrates, most prominent in the lower lobes, especially left lower lobe Head CT 01/31/24 08:55 IMPRESSION: Cerebral atherosclerosis and chronic small vessel ischemic changes of the cerebral white matter No acute intracranial finding Moderate mucoperiosteal thickening of the left sphenoid sinus and partial opacification of mastoid air cells bilaterally Labs Labs: Laboratory Results - last 24 hr 01/30/24 01/30/24 01/30/24 04:38 11:33 15:42 WBC RBC Hgb Hct MCV MCH MCHC RDW Plt Count MPV Immature Gran % (Auto) Neut % (Auto) Lymph % (Auto) Page % (Auto) Eos % (Auto) Baso % (Auto) Lymph # (Auto) Page # (Auto) Eos # (Auto) Baso # (Auto) Abs Immat Gran (auto) Absolute Neuts (auto) Absolute Nucleated RBC Nucleated RBC % Puncture Site ABG pH ABG pCO2 ABG pO2 ABG PO2/FiO2 Ratio ABG HCO3 ABG O2 Saturation ABG O2 Content ABG Base Excess A-a Gradient Oxyhemoglobin Carboxyhemoglobin Methemoglobin Reduced Hemoglobin Total Hemoglobin O2 Delivery Device O2 Liters/Min Minute Volume Vent Rate Vent Mode FiO2 Tidal Volume PEEP Peak Inspir Pressure Pressure Support Sodium Potassium Chloride Carbon Dioxide Anion Gap BUN Creatinine Estim Creat Clear Calc Estimated GFR Glucose POC Capillary Glucose 196 H 219 H Lactic Acid Calcium Phosphorus Magnesium Iron TIBC % Saturation Ferritin Total Bilirubin AST ALT Alkaline Phosphatase Total Protein Albumin Triglycerides Vitamin B12 > 1000.0 H Folate 19.6 Random Vancomycin 01/30/24 01/31/24 01/31/24 20:37 00:13 05:03 WBC RBC Hgb Hct MCV MCH MCHC RDW Plt Count MPV Immature Gran % (Auto) Neut % (Auto) Lymph % (Auto) Page % (Auto) Eos % (Auto) Baso % (Auto) Lymph # (Auto) Page # (Auto) Eos # (Auto) Baso # (Auto) Abs Immat Gran (auto) Absolute Neuts (auto) Absolute Nucleated RBC Nucleated RBC % Puncture Site ABG pH ABG pCO2 ABG pO2 ABG PO2/FiO2 Ratio ABG HCO3 ABG O2 Saturation ABG O2 Content ABG Base Excess A-a Gradient Oxyhemoglobin Carboxyhemoglobin Methemoglobin Reduced Hemoglobin Total Hemoglobin O2 Delivery Device O2 Liters/Min Minute Volume Vent Rate Vent Mode FiO2 Tidal Volume PEEP Peak Inspir Pressure Pressure Support Sodium Potassium Chloride Carbon Dioxide Anion Gap BUN Creatinine Estim Creat Clear Calc Estimated GFR Glucose POC Capillary Glucose 240 H 228 H 242 H Lactic Acid Calcium Phosphorus Magnesium Iron TIBC % Saturation Ferritin Total Bilirubin AST ALT Alkaline Phosphatase Total Protein Albumin Triglycerides Vitamin B12 Folate Random Vancomycin 01/31/24 01/31/24 01/31/24 05:18 05:34 09:06 WBC 13.8 H RBC 2.71 L Hgb 8.6 L Hct 26.8 L MCV 98.9 MCH 31.7 MCHC 32.1 RDW 15.7 H Plt Count 301 MPV 10.7 H Immature Gran % (Auto) 3.2 H Neut % (Auto) 76.3 H Lymph % (Auto) 13.3 L Page % (Auto) 5.4 Eos % (Auto) 1.5 Baso % (Auto) 0.3 Lymph # (Auto) 1.83 Page # (Auto) 0.7 H Eos # (Auto) 0.2 Baso # (Auto) 0.0 Abs Immat Gran (auto) 0.44 H Absolute Neuts (auto) 10.5 H Absolute Nucleated RBC 0.000 Nucleated RBC % 0.0 Puncture Site Right radial ABG pH 7.491 H ABG pCO2 35.7 ABG pO2 63.9 L ABG PO2/FiO2 Ratio 1.83 ABG HCO3 26.7 H ABG O2 Saturation 94.1 L ABG O2 Content 17.9 ABG Base Excess 3.5 A-a Gradient 144.2 Oxyhemoglobin 91.6 Carboxyhemoglobin 1.3 Methemoglobin 0.1 Reduced Hemoglobin 7.0 H Total Hemoglobin 13.9 O2 Delivery Device Ventilator O2 Liters/Min Not Reportable Minute Volume Not Reportable Vent Rate 22 Vent Mode Cmv FiO2 35 Tidal Volume 360 PEEP 8 Peak Inspir Pressure Not Reportable Pressure Support Not Reportable Sodium 142 Potassium 4.1 Chloride 103 Carbon Dioxide 29 Anion Gap 10 BUN 63 H Creatinine 1.50 H Estim Creat Clear Calc 29 Estimated GFR 34 L Glucose 257 H POC Capillary Glucose 236 H Lactic Acid 1.4 Calcium 9.0 Phosphorus 6.1 H Magnesium 2.1 Iron 25 L TIBC 251 L % Saturation 10 L Ferritin 122.00 Total Bilirubin 0.9 AST 47 H ALT 31 Alkaline Phosphatase 127 H Total Protein 8.0 Albumin 3.6 Triglycerides 120 Vitamin B12 Folate Random Vancomycin 18.6 Quality VTE Prophylaxis VTE prophylaxis: pharmacologic ordered (Heparin GGT per protocol)
--- NOTE | 2024-01-31 13:24 | P.PNNP_ITS ---
Progress Note: A&P Assessment and Plan (1) Acute kidney injury: Code(s): N17.9 - Acute kidney failure, unspecified Status: Acute Assessment and Plan: * initial improvement on admission (from 1.5mg/dl to 0.9mg/dl) * then worsening again noted on 01/21 (up to 1.3mg/dl and subsequently 2.3mg/dl on 01/22) * suspect multifactorial etiology: * contrast exposure * infection/sepsis * hemodynamic instability/shock * possible prerenal factors * diuretic use prior to admission * hypoxia * other(?) * evaluation to date noted: * CPK mildly elevated * UA with blood/protein and possible infection * urine electrolytes prerenal * moderate proteinuria * renal ultrasound w/o obstruction * was dialysis dependent until last Friday when she had her last treatment. * Since then she has been getting Bumex 2mg IV 1 a day and urine output is much better * creatinine is actually a little bit better at 1.5. (2) Acute respiratory failure: Code(s): J96.00 - Acute respiratory failure, unspecified whether with hypoxia or hypercapnia Status: Acute Assessment and Plan: * thought to be secondary to a combination of pneumonia and pulmonary embolus +/- pulmonary edema * appears to have progressed to ARDS * intubated and placed on mechanical ventilation on 01/20 * recent CT of chest noted * was requiring paralytics with sedation * on bronchodilator therapy and antibiotics * fluid removal with dialysis as tolerated * repeat IV diuretics today * ventilator weaning when able (3) Septic shock: Code(s): A41.9 - Sepsis, unspecified organism; R65.21 - Severe sepsis with septic shock Status: Acute Assessment and Plan: * as noted on admission - hypotension, lactic acidosis, fevers, and hypoxia/respiratory failure * presumed source = pneumonia +/- diverticulitiis * s/p IVF resuscitation and vasopressor support (weaned off currently) * follow culture data * on Vanco plus Unasyn (4) Community acquired pneumonia: Qualifiers: Laterality: left Lung location: lower lobe of lung Qualified Code(s): J18.9 - Pneumonia, unspecified organism Code(s): J18.9 - Pneumonia, unspecified organism Status: Acute Assessment and Plan: * based on evidence to date * viral swab for RSV/COVID/influenza negative * follow culture data * on vanco plus Unasyn (5) Pulmonary embolism: Code(s): I26.99 - Other pulmonary embolism without acute cor pulmonale Status: Acute Assessment and Plan: * admission CTA of chest with nonocclusive acute subsegmental PE in the left lower lobe with small clot burden * venous dopplers negative * anticoagulation currently on hold due low H/H (6) Diverticulitis: Code(s): K57.92 - Diverticulitis of intestine, part unspecified, without perforation or abscess without bleeding Status: Acute Assessment and Plan: * CT abdomen pelvis with mural thickening within the rectosigmoid colon with multiple diverticula and prominence of the vasa recta, possibly early diverticulitis. 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 Subjective Date/time seen: 01/31/24 13:24 Interval history: patient is on the ventilator. Daughter in the room. Patient follows commands. Exam Narrative: General: elderly but WD/WN female intubated/sedated and on mechanical prince tilation Heart: normal S1 and S2; no rub or gallop Lungs: coarse breath sounds throughout Abdomen: soft, nontender, nondistended, positive bowel sounds Extremities: no cyanosis or clubbing; no edema Skin: no rash Objective Data Vital Signs Vital Signs: Vital Signs - 24 hr 01/30/24 13:29 01/30/24 13:29 01/30/24 14:09 Temperature 101.4 F H Pulse Rate 85 85 Respiratory Rate 27 H Blood Pressure Pulse Oximetry 93 Oxygen Delivery Mechanical Ventilation Fraction of Inspired Oxygen 35 01/30/24 14:05 01/30/24 14:05 01/30/24 14:00 Temperature Pulse Rate 85 85 84 Respiratory Rate 26 H 24 H Blood Pressure Pulse Oximetry Oxygen Delivery Fraction of Inspired Oxygen 01/30/24 14:00 01/30/24 14:00 01/30/24 14:00 Temperature 101.4 F H 101.6 F H Pulse Rate 86 87 71 Respiratory Rate 24 H 25 H 27 H Blood Pressure 149/53 H 149/53 H Pulse Oximetry 93 92 Oxygen Delivery Fraction of Inspired Oxygen 01/30/24 15:09 01/30/24 16:00 01/30/24 16:00 Temperature 102 F H 101.8 F H Pulse Rate 85 Respiratory Rate 22 H Blood Pressure 151/57 H Pulse Oximetry 96 Oxygen Delivery Mechanical Ventilation Fraction of Inspired Oxygen 35 01/30/24 16:00 01/30/24 16:00 01/30/24 16:00 Temperature Pulse Rate 82 77 Respiratory Rate 25 H Blood Pressure Pulse Oximetry Oxygen Delivery Fraction of Inspired Oxygen 35 01/30/24 16:00 01/30/24 16:00 01/30/24 16:30 Temperature Pulse Rate 77 77 79 Respiratory Rate 24 H 24 H Blood Pressure Pulse Oximetry 95 Oxygen Delivery Mechanical Ventilation Fraction of Inspired Oxygen 35 01/30/24 17:00 01/30/24 17:14 01/30/24 17:14 Temperature Pulse Rate 81 64 64 Respiratory Rate 23 H 23 H Blood Pressure 137/74 Pulse Oximetry 93 Oxygen Delivery Fraction of Inspired Oxygen 01/30/24 17:00 01/30/24 17:00 01/30/24 18:09 Temperature 101.8 F H Pulse Rate 83 83 Respiratory Rate 28 H 28 H Blood Pressure Pulse Oximetry Oxygen Delivery Fraction of Inspired Oxygen 01/30/24 18:00 01/30/24 18:00 01/30/24 18:00 Temperature Pulse Rate 63 62 63 Respiratory Rate 22 H 22 H Blood Pressure 101/45 L Pulse Oximetry 95 Oxygen Delivery Fraction of Inspired Oxygen 01/30/24 18:00 01/30/24 18:00 01/30/24 19:45 Temperature 101.8 F H Pulse Rate 63 63 61 Respiratory Rate 22 H 22 H Blood Pressure 101/45 L 88/36 L Pulse Oximetry 94 Oxygen Delivery Fraction of Inspired Oxygen 01/30/24 20:28 01/30/24 20:27 01/30/24 20:38 Temperature Pulse Rate 64 64 Respiratory Rate 23 H Blood Pressure Pulse Oximetry 97 97 Oxygen Delivery Mechanical Ventilation Mechanical Ventilation Fraction of Inspired Oxygen 35 35 01/30/24 19:09 01/30/24 20:00 01/30/24 20:00 Temperature 101.7 F H Pulse Rate 64 79 Respiratory Rate 23 H Blood Pressure 162/58 H Pulse Oximetry Oxygen Delivery Fraction of Inspired Oxygen 01/30/24 20:15 01/30/24 20:30 01/30/24 20:45 Temperature Pulse Rate 77 64 81 Respiratory Rate 27 H Blood Pressure 164/66 H 165/76 H Pulse Oximetry Oxygen Delivery Fraction of Inspired Oxygen 01/30/24 19:15 01/30/24 20:15 01/30/24 20:00 Temperature Pulse Rate 62 64 71 Respiratory Rate 24 H 23 H 22 H Blood Pressure Pulse Oximetry Oxygen Delivery Fraction of Inspired Oxygen 01/30/24 20:45 01/30/24 21:00 01/30/24 21:00 Temperature Pulse Rate 82 82 82 Respiratory Rate 23 H Blood Pressure 158/62 H 139/59 L Pulse Oximetry Oxygen Delivery Fraction of Inspired Oxygen 01/30/24 21:15 01/30/24 19:01 01/30/24 19:31 Temperature 101.7 F H 101.7 F H Pulse Rate 66 60 61 Respiratory Rate 26 H 22 H 24 H Blood Pressure 104/45 L 86/38 L Pulse Oximetry 95 94 Oxygen Delivery Fraction of Inspired Oxygen 01/30/24 19:36 01/30/24 19:37 01/30/24 19:58 Temperature 101.7 F H 101.7 F H 101.5 F H Pulse Rate 61 61 64 Respiratory Rate 24 H 24 H 22 H Blood Pressure 88/38 L 88/36 L 162/58 H Pulse Oximetry 95 94 98 Oxygen Delivery Fraction of Inspired Oxygen 01/30/24 20:02 01/30/24 20:17 01/30/24 20:38 Temperature 101.5 F H 101.5 F H 101.6 F H Pulse Rate 64 74 81 Respiratory Rate 23 H 22 H 21 H Blood Pressure 160/58 H 164/66 H 165/76 H Pulse Oximetry 98 97 95 Oxygen Delivery Fraction of Inspired Oxygen 01/30/24 20:46 01/30/24 21:01 01/30/24 21:53 Temperature 101.6 F H 101.5 F H Pulse Rate 78 77 68 Respiratory Rate 25 H 23 H 27 H Blood Pressure 158/62 H 139/59 L Pulse Oximetry 93 92 Oxygen Delivery Fraction of Inspired Oxygen 01/30/24 21:53 01/30/24 20:00 01/30/24 20:00 Temperature Pulse Rate 68 Respiratory Rate 27 H Blood Pressure Pulse Oximetry Oxygen Delivery Mechanical Ventilation Fraction of Inspired Oxygen 35 35 01/30/24 20:00 01/30/24 22:00 01/30/24 21:16 Temperature 101.4 F H Pulse Rate 63 57 L 63 Respiratory Rate 24 H Blood Pressure 133/49 L Pulse Oximetry 91 Oxygen Delivery Fraction of Inspired Oxygen 01/30/24 21:31 01/30/24 21:46 01/30/24 22:01 Temperature 101.3 F H 101.2 F H 101.1 F H Pulse Rate 61 61 57 L Respiratory Rate 23 H 23 H 24 H Blood Pressure 126/51 L 123/50 L 125/55 L Pulse Oximetry 91 91 91 Oxygen Delivery Fraction of Inspired Oxygen 01/30/24 22:16 01/30/24 22:31 01/30/24 22:46 Temperature 101.0 F H 101.0 F H 100.9 F H Pulse Rate 58 L 56 L 57 L Respiratory Rate 22 H 22 H 22 H Blood Pressure 121/52 L 122/51 L 122/54 L Pulse Oximetry 92 94 95 Oxygen Delivery Fraction of Inspired Oxygen 01/31/24 00:00 01/31/24 00:00 01/31/24 00:00 Temperature Pulse Rate 50 L Respiratory Rate Blood Pressure Pulse Oximetry Oxygen Delivery Mechanical Ventilation Fraction of Inspired Oxygen 35 35 01/30/24 22:00 01/31/24 00:00 01/30/24 22:00 Temperature Pulse Rate 59 L 51 L 59 L Respiratory Rate 24 H Blood Pressure 125/55 L 110/49 L Pulse Oximetry Oxygen Delivery Fraction of Inspired Oxygen 01/30/24 23:00 01/31/24 00:00 01/31/24 01:00 Temperature Pulse Rate 56 L 51 L 71 Respiratory Rate 22 H 22 H 24 H Blood Pressure Pulse Oximetry Oxygen Delivery Fraction of Inspired Oxygen 01/30/24 21:00 01/30/24 22:00 01/30/24 23:00 Temperature Pulse Rate 81 59 L 56 L Respiratory Rate 22 H 24 H 22 H Blood Pressure Pulse Oximetry Oxygen Delivery Fraction of Inspired Oxygen 01/31/24 00:00 01/31/24 00:01 01/31/24 00:16 Temperature 100.6 F H 100.5 F H Pulse Rate 51 L 51 L 50 L Respiratory Rate 22 H 22 H 22 H Blood Pressure 110/49 L 108/49 L Pulse Oximetry 92 92 Oxygen Delivery Fraction of Inspired Oxygen 01/31/24 00:31 01/31/24 00:46 01/31/24 00:55 Temperature 100.4 F H 100.3 F H 100.2 F H Pulse Rate 65 70 72 Respiratory Rate 22 H 22 H 28 H Blood Pressure 114/45 L 97/40 L 107/41 L Pulse Oximetry 91 92 92 Oxygen Delivery Fraction of Inspired Oxygen 01/31/24 01:00 01/31/24 01:01 01/30/24 23:00 Temperature 100.2 F H 100.2 F H Pulse Rate 70 69 56 L Respiratory Rate 21 H 22 H Blood Pressure 102/39 L Pulse Oximetry 92 91 100 Oxygen Delivery Mechanical Ventilation Fraction of Inspired Oxygen 35 01/30/24 20:42 01/31/24 02:00 01/31/24 02:00 Temperature Pulse Rate 67 68 68 Respiratory Rate 23 H 29 H Blood Pressure Pulse Oximetry Oxygen Delivery Fraction of Inspired Oxygen 01/30/24 22:00 01/31/24 00:00 01/31/24 02:00 Temperature Pulse Rate 59 L 51 L 68 Respiratory Rate 24 H 22 H 29 H Blood Pressure Pulse Oximetry Oxygen Delivery Fraction of Inspired Oxygen 01/31/24 01:16 01/31/24 01:31 01/31/24 01:46 Temperature 100.1 F H 100.0 F H 100.0 F H Pulse Rate 67 67 65 Respiratory Rate 21 H 30 H 23 H Blood Pressure 107/45 L 110/45 L 125/52 L Pulse Oximetry 91 88 L 89 L Oxygen Delivery Fraction of Inspired Oxygen 01/31/24 02:01 01/31/24 02:23 01/31/24 02:25 Temperature 100.1 F H Pulse Rate 68 67 67 Respiratory Rate 29 H 26 H Blood Pressure 129/48 L Pulse Oximetry 87 L 92 Oxygen Delivery Mechanical Ventilation Fraction of Inspired Oxygen 35 01/31/24 03:30 01/31/24 03:30 01/31/24 03:54 Temperature Pulse Rate 67 67 Respiratory Rate 27 H 27 H Blood Pressure Pulse Oximetry Oxygen Delivery Mechanical Ventilation Fraction of Inspired Oxygen 35 01/31/24 04:00 01/31/24 04:00 01/31/24 02:16 Temperature 100.2 F H Pulse Rate 65 67 Respiratory Rate 22 H Blood Pressure 127/54 L Pulse Oximetry 90 Oxygen Delivery Fraction of Inspired Oxygen 35 01/31/24 02:31 01/31/24 03:21 01/31/24 03:31 Temperature 100.2 F H 99.6 F 99.5 F Pulse Rate 72 68 67 Respiratory Rate 22 H 22 H 25 H Blood Pressure 130/50 L 132/58 L 122/56 L Pulse Oximetry 93 94 92 Oxygen Delivery Fraction of Inspired Oxygen 01/31/24 03:45 01/31/24 03:46 01/31/24 04:00 Temperature 99.4 F 99.4 F 99.3 F Pulse Rate 54 L 53 L 64 Respiratory Rate 22 H 21 H 21 H Blood Pressure 121/52 L Pulse Oximetry 93 93 94 Oxygen Delivery Fraction of Inspired Oxygen 01/31/24 04:01 01/31/24 04:00 01/31/24 04:00 Temperature 99.3 F Pulse Rate 63 65 65 Respiratory Rate 23 H 22 H 22 H Blood Pressure 133/54 L Pulse Oximetry 94 Oxygen Delivery Fraction of Inspired Oxygen 01/31/24 02:30 01/31/24 05:30 01/31/24 06:00 Temperature Pulse Rate 69 61 61 Respiratory Rate 26 H 22 H Blood Pressure Pulse Oximetry 95 Oxygen Delivery Mechanical Ventilation Fraction of Inspired Oxygen 35 01/31/24 06:00 01/31/24 06:00 01/31/24 05:01 Temperature 99.2 F Pulse Rate 61 60 62 Respiratory Rate 22 H 21 H Blood Pressure 113/61 Pulse Oximetry 94 Oxygen Delivery Fraction of Inspired Oxygen 01/31/24 06:01 01/31/24 07:30 01/31/24 07:30 Temperature 99.3 F Pulse Rate 60 59 L 59 L Respiratory Rate 21 H 23 H Blood Pressure 133/56 L Pulse Oximetry 96 96 Oxygen Delivery Mechanical Ventilation Fraction of Inspired Oxygen 35 01/31/24 07:40 01/31/24 08:05 01/31/24 08:00 Temperature 99.5 F Pulse Rate 62 52 L Respiratory Rate 24 H 22 H Blood Pressure 118/47 L Pulse Oximetry 94 Oxygen Delivery Mechanical Ventilation Fraction of Inspired Oxygen 35 01/31/24 08:00 01/31/24 08:00 01/31/24 08:00 Temperature Pulse Rate 52 L 52 L Respiratory Rate 22 H 22 H Blood Pressure Pulse Oximetry Oxygen Delivery Fraction of Inspired Oxygen 35 01/31/24 09:46 01/31/24 09:24 01/31/24 09:50 Temperature Pulse Rate 53 L 66 66 Respiratory Rate 27 H 27 H Blood Pressure Pulse Oximetry 94 Oxygen Delivery Mechanical Ventilation Fraction of Inspired Oxygen 35 01/31/24 10:00 01/31/24 08:00 01/31/24 10:00 Temperature 99 F Pulse Rate 61 54 L Respiratory Rate 25 H 22 H Blood Pressure 125/62 Pulse Oximetry 94 94 Oxygen Delivery Mechanical Ventilation Fraction of Inspired Oxygen 35 01/31/24 10:36 01/31/24 10:42 01/31/24 08:00 Temperature Pulse Rate 50 L 60 63 Respiratory Rate 20 20 Blood Pressure Pulse Oximetry Oxygen Delivery Fraction of Inspired Oxygen 01/31/24 10:00 01/31/24 12:36 01/31/24 11:00 Temperature Pulse Rate 61 75 62 Respiratory Rate 20 22 H Blood Pressure Pulse Oximetry Oxygen Delivery Fraction of Inspired Oxygen 01/31/24 11:30 01/31/24 13:05 01/31/24 13:05 Temperature Pulse Rate 74 75 75 Respiratory Rate 18 22 H Blood Pressure Pulse Oximetry 96 Oxygen Delivery Mechanical Ventilation Fraction of Inspired Oxygen 35 01/31/24 13:14 Temperature Pulse Rate 80 Respiratory Rate 17 Blood Pressure Pulse Oximetry Oxygen Delivery Fraction of Inspired Oxygen Intake/Output Intake/Output: Intake & Output 01/28/24 01/29/24 01/30/24 01/31/24 23:59 23:59 23:59 23:59 Intake Total 1968.9 1565.7 2075.9 988.5 Output Total 4450 3000 3675 625 [facility] -2481.1 -1434.3 -1599.1 363.5 Meds/Results Medications: Active Medications Generic Name Dose Route Start Last Admin Trade Name Freq PRN Reason Stop Dose Admin Acetaminophen 650 mg 01/20/24 10:08 01/30/24 18:09 Acetaminophen 325 Mg Tablet PO 650 mg Q4H PRN Administration Mild Pain (1-3) or Fever Acetylcysteine 200 mg 01/28/24 14:00 01/31/24 13:10 Acetylcysteine 20% Inhal Soln 800 Mg/4 Ml Vial INHALATION 200 mg Q6HRT EDMOND Administration Albuterol/Ipratropium 3 ml 01/22/24 14:00 01/31/24 13:05 Ipratropium 0.5 Mg/Albuterol Sulfate 2.5 Mg Ampul.Neb 3 Ml INHALATION 3 ml Q6HRT EDMOND Administration Aspirin 81 mg 01/19/24 08:00 01/31/24 09:11 Aspirin 81 Mg Chewable Tablet PO 81 mg DAILY@0800 EDMOND Administration Atorvastatin Calcium 40 mg 01/19/24 09:00 01/31/24 09:11 Atorvastatin 40 Mg Tablet PO 40 mg DAILY EDMOND Administration Clopidogrel Bisulfate 75 mg 01/19/24 09:00 01/31/24 09:10 Clopidogrel Bisulfate 75 Mg Tablet PO 75 mg DAILY EDMOND Administration Dextrose 12.5 gm 01/18/24 23:28 Dextrose 50% 25 Gm/50 Ml Syringe IV PUSH PRN PRN Hypoglycemia Protocol Glucagon 1 mg 01/18/24 23:28 Glucagon For Inj 1 Mg Vial IM PRN PRN Hypoglycemia Protocol Glucose 15 gm 01/18/24 23:28 Glucose Oral Gel 15 Gm Of Glucse In 37.5 Gm Tube PO PRN PRN Hypoglycemia Protocol Dextrose 1,000 mls @ 100 mls/hr 01/18/24 23:28 Dextrose 5% 1,000 Ml IVPB PRN PRN Hypoglycemia Protocol Albumin Human 50 mls @ 999 mls/hr 01/26/24 11:40 01/27/24 09:51 Albutein IVPB 02/25/24 11:39 999 mls/hr Q10M PRN Administration HYPOTENSION Dexmedetomidine HCl 400 mcg in 100 mls @ 11.64 mls/hr 01/30/24 08:40 01/31/24 12:36 Precedex 400 Mcg/100 Ml IV CONT 0.6 mcg/kg/hr .Q8H36M [facility] 11.64 mls/hr Titration Protocol 0.6 MCG/KG/HR Ampicillin Sodium/Sulbactam Sodium 3 gm in 100 mls @ 200 mls/hr 01/31/24 15:00 Unasyn 3 Gm/Ns 100 Ml IVPB Q6H [facility] Insulin Aspart 4 - 8 units 01/19/24 12:00 01/31/24 12:39 Insulin Aspart (*Bkc) 100 Units/Ml SUB-Q 4 units Q4H [facility] Administration Protocol Insulin Glargine 75 units 02/01/24 09:00 Insulin Glargine (*Bkc) 100 Units/Ml SUB-Q QAM EDMOND Levothyroxine Sodium 112 mcg 01/19/24 06:30 01/31/24 05:05 Levothyroxine Sodium 112 Mcg Tablet PO 112 mcg DAILY@0630 EDMOND Administration Midazolam HCl 4 mg 01/21/24 09:35 01/30/24 16:56 Midazolam Hcl (*Crx) 2 Mg/2 Ml Vial IV PUSH 4 mg PRN PRN Administration Sedation Multi-Ingred Cream/Lotion/Oil/Oint 1 applic 01/21/24 09:00 01/31/24 09:11 Mineral Oil/White Petrolatum Ointment EACH EYE 1 applic Q12HR EDMOND Administration Ondansetron HCl 4 mg 01/18/24 22:13 Ondansetron Inj 4 Mg/2 Ml Vial IV PUSH Q4H PRN Nausea Pantoprazole Sodium 40 mg 01/19/24 09:00 01/31/24 09:11 Pantoprazole Sodium Iv 40 Mg Vial IV PUSH 40 mg Q12HR EDMOND Administration Polyethylene Glycol 17 gm 01/29/24 10:19 Polyethylene Glycol 3350 17 Gm Powd.Pack PO QAM PRN Constipation Vancomycin HCl 1 each 01/30/24 09:16 Vancomycin For Acute Kidney Injury IVPB PRN PRN Vancomycin Protocol Radiology Results: ITS Impressions Chest/Abdomen/Pelvis CTA 01/18/24 18:30 IMPRESSION: Nonocclusive acute subsegmental pulmonary embolus in the left lower lobe. Very small clot burden. No evidence of right heart strain. Left lower lobe pneumonia. Mild hepatomegaly. Possible cystitis. Otherwise, no acute abdominopelvic process detected. Chest/Abdomen/Pelvis CT 01/22/24 12:43 IMPRESSION: Worsening respiratory status with bibasilar consolidation and interstitial thickening with patchy groundglass opacification bilaterally -findings suggesting ARDS. Mural thickening within the rectosigmoid colon with multiple diverticula and prominence of the vasa recta, possibly early diverticulitis. Interval development of perihepatic fluid, compared with previous study. Renal Ultrasound 01/24/24 12:05 IMPRESSION: 1. Normal kidneys without hydronephrosis. Abdomen X-Ray 01/25/24 14:53 IMPRESSION: NG tube in distal stomach Nonspecific abdomen Venous Doppler Study 01/30/24 14:52 IMPRESSION: 1. Small amount of nonocclusive deep venous thrombosis at the right common femoral vein reported site of a recently removed central venous catheter. No other deep venous thrombosis in the remainder of the bilateral lower limbs. Chest X-Ray 01/31/24 06:16 IMPRESSION: Stable or mildly improved extensive bilateral pulmonary infiltrates, most prominent in the lower lobes, especially left lower lobe Head CT 01/31/24 08:55 IMPRESSION: Cerebral atherosclerosis and chronic small vessel ischemic changes of the cerebral white matter No acute intracranial finding Moderate mucoperiosteal thickening of the left sphenoid sinus and partial opacification of mastoid air cells bilaterally Labs Labs: Laboratory Results - last 24 hr 01/30/24 01/30/24 01/30/24 04:38 15:42 20:37 WBC RBC Hgb Hct MCV MCH MCHC RDW Plt Count MPV Immature Gran % (Auto) Neut % (Auto) Lymph % (Auto) [place] % (Auto) Eos % (Auto) Baso % (Auto) Lymph # (Auto) [place] # (Auto) Eos # (Auto) Baso # (Auto) Abs Immat Gran (auto) Absolute Neuts (auto) Absolute Nucleated RBC Nucleated RBC % Puncture Site ABG pH ABG pCO2 ABG pO2 ABG PO2/FiO2 Ratio ABG HCO3 ABG O2 Saturation ABG O2 Content ABG Base Excess A-a Gradient Oxyhemoglobin Carboxyhemoglobin Methemoglobin Reduced Hemoglobin Total Hemoglobin O2 Delivery Device O2 Liters/Min Minute Volume Vent Rate Vent Mode FiO2 Tidal Volume PEEP Peak Inspir Pressure Pressure Support Sodium Potassium Chloride Carbon Dioxide Anion Gap BUN Creatinine Estim Creat Clear Calc Estimated GFR Glucose POC Capillary Glucose 219 H 240 H Lactic Acid Calcium Phosphorus Magnesium Iron TIBC % Saturation Ferritin Total Bilirubin AST ALT Alkaline Phosphatase Total Protein Albumin Triglycerides Vitamin B12 > 1000.0 H Folate 19.6 Random Vancomycin 01/31/24 01/31/24 01/31/24 00:13 05:03 05:18 WBC 13.8 H RBC 2.71 L Hgb 8.6 L Hct 26.8 L MCV 98.9 MCH 31.7 MCHC 32.1 RDW 15.7 H Plt Count 301 MPV 10.7 H Immature Gran % (Auto) 3.2 H Neut % (Auto) 76.3 H Lymph % (Auto) 13.3 L [place] % (Auto) 5.4 Eos % (Auto) 1.5 Baso % (Auto) 0.3 Lymph # (Auto) 1.83 [place] # (Auto) 0.7 H Eos # (Auto) 0.2 Baso # (Auto) 0.0 Abs Immat Gran (auto) 0.44 H Absolute Neuts (auto) 10.5 H Absolute Nucleated RBC 0.000 Nucleated RBC % 0.0 Puncture Site ABG pH ABG pCO2 ABG pO2 ABG PO2/FiO2 Ratio ABG HCO3 ABG O2 Saturation ABG O2 Content ABG Base Excess A-a Gradient Oxyhemoglobin Carboxyhemoglobin Methemoglobin Reduced Hemoglobin Total Hemoglobin O2 Delivery Device O2 Liters/Min Minute Volume Vent Rate Vent Mode FiO2 Tidal Volume PEEP Peak Inspir Pressure Pressure Support Sodium 142 Potassium 4.1 Chloride 103 Carbon Dioxide 29 Anion Gap 10 BUN 63 H Creatinine 1.50 H Estim Creat Clear Calc 29 Estimated GFR 34 L Glucose 257 H POC Capillary Glucose 228 H 242 H Lactic Acid 1.4 Calcium 9.0 Phosphorus 6.1 H Magnesium 2.1 Iron 25 L TIBC 251 L % Saturation 10 L Ferritin 122.00 Total Bilirubin 0.9 AST 47 H ALT 31 Alkaline Phosphatase 127 H Total Protein 8.0 Albumin 3.6 Triglycerides 120 Vitamin B12 Folate Random Vancomycin 18.6 01/31/24 01/31/24 05:34 09:06 WBC RBC Hgb Hct MCV MCH MCHC RDW Plt Count MPV Immature Gran % (Auto) Neut % (Auto) Lymph % (Auto) [place] % (Auto) Eos % (Auto) Baso % (Auto) Lymph # (Auto) [place] # (Auto) Eos # (Auto) Baso # (Auto) Abs Immat Gran (auto) Absolute Neuts (auto) Absolute Nucleated RBC Nucleated RBC % Puncture Site Right radial ABG pH 7.491 H ABG pCO2 35.7 ABG pO2 63.9 L ABG PO2/FiO2 Ratio 1.83 ABG HCO3 26.7 H ABG O2 Saturation 94.1 L ABG O2 Content 17.9 ABG Base Excess 3.5 A-a Gradient 144.2 Oxyhemoglobin 91.6 Carboxyhemoglobin 1.3 Methemoglobin 0.1 Reduced Hemoglobin 7.0 H Total Hemoglobin 13.9 O2 Delivery Device Ventilator O2 Liters/Min Not Reportable Minute Volume Not Reportable Vent Rate 22 Vent Mode Cmv FiO2 35 Tidal Volume 360 PEEP 8 Peak Inspir Pressure Not Reportable Pressure Support Not Reportable Sodium Potassium Chloride Carbon Dioxide Anion Gap BUN Creatinine Estim Creat Clear Calc Estimated GFR Glucose POC Capillary Glucose 236 H Lactic Acid Calcium Phosphorus Magnesium Iron TIBC % Saturation Ferritin Total Bilirubin AST ALT Alkaline Phosphatase Total Protein Albumin Triglycerides Vitamin B12 Folate Random Vancomycin
--- NOTE | 2024-01-31 13:24 | WPDCN ---
Assessment and Plan Assessment and plan (1) Pulmonary embolism: Code(s): I26.99 - Other pulmonary embolism without acute cor pulmonale Status: Acute Assessment and Plan: Patient's confirm pulmonary embolus. Systemic anticoagulation was unsuccessful due to GI bleeding. She has a right femoral vein nonocclusive thrombus and so she will need to have an IVC filter placed for prevention of saddle embolus and acute cardiopulmonary arrest. I have discussed this in detail with the patient's daughter at the bedside. She was grooved proceeding with placement of IVC filter early next week. (2) Acute respiratory failure: Code(s): J96.00 - Acute respiratory failure, unspecified whether with hypoxia or hypercapnia Status: Acute Assessment and Plan: Patient is still intubated. She is improving. Breathing trials are ongoing. She may be extubated next day or 2. (3) Dvt femoral (deep venous thrombosis): Code(s): I82.419 - Acute embolism and thrombosis of unspecified femoral vein Status: Acute Assessment and Plan: Nonocclusive thrombus in the right femoral vein. Can not be anticoagulated due to GI bleeding. (4) GI bleeding: Code(s): K92.2 - Gastrointestinal hemorrhage, unspecified Status: Acute Assessment and Plan: Source not entirely known. GI without med decision to perform endoscopy yet. No longer having active GI bleed at this time. HPI Data of Consult Date/Time: 01/31/24 13:24 Requesting Physician: Lisa Anderson DO Primary Care Provider: Adan CalderaMD Consult Narrative Reason for consult: Right lower extremity DVT, pulmonary embolus, GI bleeding, IVC filter Narrative: Frances Lazo is a 68 year old female admitted to [facility] for MRSA pneumonia and has been intubated for was 2 weeks. She was also found to have a pulmonary embolus. She had a IV catheter in the right femoral vein and there is nonocclusive clot within the right femoral vein. She was initially anticoagulated but then developed dark bloody stools due to her systemic anticoagulation and so this was stopped. Patient needs an IVC filter placed as she cannot be systemically anticoagulated due to her GI bleeding. Her pulmonary status has been improving and breathing trials are ongoing. She may be extubated in next day or 2. Review of Systems Review of Systems: The remainder of the review of systems to include constitutional, HEENT, cardiovascular, respiratory, GI, , integumentary, musculoskeletal, endocrine, immunologic, hematologic, psychiatric, and neurologic are all negative except for which is mentioned above in the HPI. [facility] Past Medical History Medical History Allergic rhinitis CAD (coronary artery disease) Diabetes Gastric cardia ulcer Noted on EGD 12/04/2023 History of Clostridium difficile infection (12/2022) HTN (hypertension) Hx of blood clots Pulmonary embolism at age 15 due to control use Hypothyroidism Tobacco use Surgical History Surgical History History of cardiac cath History of colonoscopy (04/02/23) History of coronary artery stent placement x1 History of esophagogastroduodenoscopy (EGD) (12/04/23) Hx of cholecystectomy Family History Family History Father Diabetes mellitus Cancer Mother Diabetes mellitus Social History Social History Social History: The patient lives in her own home. She has been since approximately 2019. She was for 50 years prior to her 's and they raised 6 children. She has approximately 32 grandchildren. 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 She has smoked a half a pack of cigarettes per day on average shins she was in her teens. She denies significant alcohol use history or history of drug use. Code status: Full code (she states that she would not want to be on a ventilator long-term or be completed dependent for care.) Healthcare power of workers compensation defense attorney: Tiffany Vega (youngest daughter) Smoking packs per day: 0.5 Smoking cigarettes per day: 10.0 Years smoked: 53 Smoking pack-years: 26.50 Smoking status: Former smoker Smoking end date: 01/05/24 Alcohol intake: never Substance use: never Substance use type: does not use Do You Feel Safe in your Home?: Yes Lack of Transportation: No Lack of Food: Never True Current Housing: I Have Housing Concerned About Future Housing: No Difficulty Paying Gas/Electric Bills: No Difficulty Paying for Meds: No Currently Unemployed: No Education: High School Diploma/GED Difficulty w/ Childcare or Family Care: No Living arrangements: with family Spiritual care concerns: No Meds Home Medications and Allergies Home Medications Medication Instructions Recorded Confirmed Type metformin 500 mg tablet,extended 500 mg PO BID 12/20/22 01/18/24 History release 24 hr sertraline 100 mg tablet 100 mg PO DAILY 12/20/22 01/18/24 History clopidogrel 75 mg tablet 75 mg PO DAILY 12/26/22 01/18/24 History amlodipine 2.5 mg tablet 2.5 mg PO DAILY 09/09/23 01/18/24 History aspirin 81 mg tablet 81 mg PO DAILY 11/11/23 01/18/24 History atorvastatin 40 mg tablet 40 mg PO DAILY 01/18/24 01/18/24 History dicyclomine 10 mg capsule 10 mg PO TID 01/18/24 01/18/24 History furosemide 40 mg tablet 40 mg PO DAILY 01/18/24 01/18/24 History lansoprazole 15 mg capsule,delayed 15 mg PO DAILY 01/18/24 01/18/24 History release levothyroxine 112 mcg tablet 112 mcg PO DAILY 01/18/24 01/18/24 History nitroglycerin 0.4 mg sublingual 4 mg sublingual PRN PRN Chest Pain 01/18/24 01/18/24 History tablet Allergies Allergy/AdvReac Type Severity Reaction Status Date / Time naproxen AdvReac Itching Verified 01/18/24 22:24 Sulfa (Sulfonamide AdvReac Itching Verified 01/18/24 22:24 Antibiotics) Vital Signs Vital Signs - 24 hr 01/30/24 13:29 01/30/24 13:29 01/30/24 14:09 Temperature 38.6 C H Pulse Rate 85 85 Respiratory Rate 27 H Blood Pressure Pulse Oximetry 93 Oxygen Delivery Mechanical Ventilation Fraction of Inspired Oxygen 35 01/30/24 14:05 01/30/24 14:05 01/30/24 14:00 Temperature Pulse Rate 85 85 84 Respiratory Rate 26 H 24 H Blood Pressure Pulse Oximetry Oxygen Delivery Fraction of Inspired Oxygen 01/30/24 14:00 01/30/24 14:00 01/30/24 14:00 Temperature 38.6 C H 38.7 C H Pulse Rate 86 87 71 Respiratory Rate 24 H 25 H 27 H Blood Pressure 149/53 H 149/53 H Pulse Oximetry 93 92 Oxygen Delivery Fraction of Inspired Oxygen 01/30/24 15:09 01/30/24 16:00 01/30/24 16:00 Temperature 38.8 C H 38.8 C H Pulse Rate 85 Respiratory Rate 22 H Blood Pressure 151/57 H Pulse Oximetry 96 Oxygen Delivery Mechanical Ventilation Fraction of Inspired Oxygen 35 01/30/24 16:00 01/30/24 16:00 01/30/24 16:00 Temperature Pulse Rate 82 77 Respiratory Rate 25 H Blood Pressure Pulse Oximetry Oxygen Delivery Fraction of Inspired Oxygen 35 01/30/24 16:00 01/30/24 16:00 01/30/24 16:30 Temperature Pulse Rate 77 77 79 Respiratory Rate 24 H 24 H Blood Pressure Pulse Oximetry 95 Oxygen Delivery Mechanical Ventilation Fraction of Inspired Oxygen 35 01/30/24 17:00 01/30/24 17:14 01/30/24 17:14 Temperature Pulse Rate 81 64 64 Respiratory Rate 23 H 23 H Blood Pressure 137/74 Pulse Oximetry 93 Oxygen Delivery Fraction of Inspired Oxygen 01/30/24 17:00 01/30/24 17:00 01/30/24 18:09 Temperature 38.8 C H Pulse Rate 83 83 Respiratory Rate 28 H 28 H Blood Pressure Pulse Oximetry Oxygen Delivery Fraction of Inspired Oxygen 01/30/24 18:00 01/30/24 18:00 01/30/24 18:00 Temperature Pulse Rate 63 62 63 Respiratory Rate 22 H 22 H Blood Pressure 101/45 L Pulse Oximetry 95 Oxygen Delivery Fraction of Inspired Oxygen 01/30/24 18:00 01/30/24 18:00 01/30/24 19:45 Temperature 38.8 C H Pulse Rate 63 63 61 Respiratory Rate 22 H 22 H Blood Pressure 101/45 L 88/36 L Pulse Oximetry 94 Oxygen Delivery Fraction of Inspired Oxygen 01/30/24 20:28 01/30/24 20:27 01/30/24 20:38 Temperature Pulse Rate 64 64 Respiratory Rate 23 H Blood Pressure Pulse Oximetry 97 97 Oxygen Delivery Mechanical Ventilation Mechanical Ventilation Fraction of Inspired Oxygen 35 35 01/30/24 19:09 01/30/24 20:00 01/30/24 20:00 Temperature 38.7 C H Pulse Rate 64 79 Respiratory Rate 23 H Blood Pressure 162/58 H Pulse Oximetry Oxygen Delivery Fraction of Inspired Oxygen 01/30/24 20:15 01/30/24 20:30 01/30/24 20:45 Temperature Pulse Rate 77 64 81 Respiratory Rate 27 H Blood Pressure 164/66 H 165/76 H Pulse Oximetry Oxygen Delivery Fraction of Inspired Oxygen 01/30/24 19:15 01/30/24 20:15 01/30/24 20:00 Temperature Pulse Rate 62 64 71 Respiratory Rate 24 H 23 H 22 H Blood Pressure Pulse Oximetry Oxygen Delivery Fraction of Inspired Oxygen 01/30/24 20:45 01/30/24 21:00 01/30/24 21:00 Temperature Pulse Rate 82 82 82 Respiratory Rate 23 H Blood Pressure 158/62 H 139/59 L Pulse Oximetry Oxygen Delivery Fraction of Inspired Oxygen 01/30/24 21:15 01/30/24 19:01 01/30/24 19:31 Temperature 38.7 C H 38.7 C H Pulse Rate 66 60 61 Respiratory Rate 26 H 22 H 24 H Blood Pressure 104/45 L 86/38 L Pulse Oximetry 95 94 Oxygen Delivery Fraction of Inspired Oxygen 01/30/24 19:36 01/30/24 19:37 01/30/24 19:58 Temperature 38.7 C H 38.7 C H 38.6 C H Pulse Rate 61 61 64 Respiratory Rate 24 H 24 H 22 H Blood Pressure 88/38 L 88/36 L 162/58 H Pulse Oximetry 95 94 98 Oxygen Delivery Fraction of Inspired Oxygen 01/30/24 20:02 01/30/24 20:17 01/30/24 20:38 Temperature 38.6 C H 38.6 C H 38.7 C H Pulse Rate 64 74 81 Respiratory Rate 23 H 22 H 21 H Blood Pressure 160/58 H 164/66 H 165/76 H Pulse Oximetry 98 97 95 Oxygen Delivery Fraction of Inspired Oxygen 01/30/24 20:46 01/30/24 21:01 01/30/24 21:53 Temperature 38.7 C H 38.6 C H Pulse Rate 78 77 68 Respiratory Rate 25 H 23 H 27 H Blood Pressure 158/62 H 139/59 L Pulse Oximetry 93 92 Oxygen Delivery Fraction of Inspired Oxygen 01/30/24 21:53 01/30/24 20:00 01/30/24 20:00 Temperature Pulse Rate 68 Respiratory Rate 27 H Blood Pressure Pulse Oximetry Oxygen Delivery Mechanical Ventilation Fraction of Inspired Oxygen 35 35 01/30/24 20:00 01/30/24 22:00 01/30/24 21:16 Temperature 38.6 C H Pulse Rate 63 57 L 63 Respiratory Rate 24 H Blood Pressure 133/49 L Pulse Oximetry 91 Oxygen Delivery Fraction of Inspired Oxygen 01/30/24 21:31 01/30/24 21:46 01/30/24 22:01 Temperature 38.5 C H 38.4 C H 38.4 C H Pulse Rate 61 61 57 L Respiratory Rate 23 H 23 H 24 H Blood Pressure 126/51 L 123/50 L 125/55 L Pulse Oximetry 91 91 91 Oxygen Delivery Fraction of Inspired Oxygen 01/30/24 22:16 01/30/24 22:31 01/30/24 22:46 Temperature 38.3 C H 38.3 C H 38.3 C H Pulse Rate 58 L 56 L 57 L Respiratory Rate 22 H 22 H 22 H Blood Pressure 121/52 L 122/51 L 122/54 L Pulse Oximetry 92 94 95 Oxygen Delivery Fraction of Inspired Oxygen 01/31/24 00:00 01/31/24 00:00 01/31/24 00:00 Temperature Pulse Rate 50 L Respiratory Rate Blood Pressure Pulse Oximetry Oxygen Delivery Mechanical Ventilation Fraction of Inspired Oxygen 35 35 01/30/24 22:00 01/31/24 00:00 01/30/24 22:00 Temperature Pulse Rate 59 L 51 L 59 L Respiratory Rate 24 H Blood Pressure 125/55 L 110/49 L Pulse Oximetry Oxygen Delivery Fraction of Inspired Oxygen 01/30/24 23:00 01/31/24 00:00 01/31/24 01:00 Temperature Pulse Rate 56 L 51 L 71 Respiratory Rate 22 H 22 H 24 H Blood Pressure Pulse Oximetry Oxygen Delivery Fraction of Inspired Oxygen 01/30/24 21:00 01/30/24 22:00 01/30/24 23:00 Temperature Pulse Rate 81 59 L 56 L Respiratory Rate 22 H 24 H 22 H Blood Pressure Pulse Oximetry Oxygen Delivery Fraction of Inspired Oxygen 01/31/24 00:00 01/31/24 00:01 01/31/24 00:16 Temperature 38.1 C H 38.1 C H Pulse Rate 51 L 51 L 50 L Respiratory Rate 22 H 22 H 22 H Blood Pressure 110/49 L 108/49 L Pulse Oximetry 92 92 Oxygen Delivery Fraction of Inspired Oxygen 01/31/24 00:31 01/31/24 00:46 01/31/24 00:55 Temperature 38.0 C H 37.9 C H 37.9 C H Pulse Rate 65 70 72 Respiratory Rate 22 H 22 H 28 H Blood Pressure 114/45 L 97/40 L 107/41 L Pulse Oximetry 91 92 92 Oxygen Delivery Fraction of Inspired Oxygen 01/31/24 01:00 01/31/24 01:01 01/30/24 23:00 Temperature 37.9 C H 37.9 C H Pulse Rate 70 69 56 L Respiratory Rate 21 H 22 H Blood Pressure 102/39 L Pulse Oximetry 92 91 100 Oxygen Delivery Mechanical Ventilation Fraction of Inspired Oxygen 35 01/30/24 20:42 01/31/24 02:00 01/31/24 02:00 Temperature Pulse Rate 67 68 68 Respiratory Rate 23 H 29 H Blood Pressure Pulse Oximetry Oxygen Delivery Fraction of Inspired Oxygen 01/30/24 22:00 01/31/24 00:00 01/31/24 02:00 Temperature Pulse Rate 59 L 51 L 68 Respiratory Rate 24 H 22 H 29 H Blood Pressure Pulse Oximetry Oxygen Delivery Fraction of Inspired Oxygen 01/31/24 01:16 01/31/24 01:31 01/31/24 01:46 Temperature 37.8 C H 37.8 C H 37.8 C H Pulse Rate 67 67 65 Respiratory Rate 21 H 30 H 23 H Blood Pressure 107/45 L 110/45 L 125/52 L Pulse Oximetry 91 88 L 89 L Oxygen Delivery Fraction of Inspired Oxygen 01/31/24 02:01 01/31/24 02:23 01/31/24 02:25 Temperature 37.8 C H Pulse Rate 68 67 67 Respiratory Rate 29 H 26 H Blood Pressure 129/48 L Pulse Oximetry 87 L 92 Oxygen Delivery Mechanical Ventilation Fraction of Inspired Oxygen 35 01/31/24 03:30 01/31/24 03:30 01/31/24 03:54 Temperature Pulse Rate 67 67 Respiratory Rate 27 H 27 H Blood Pressure Pulse Oximetry Oxygen Delivery Mechanical Ventilation Fraction of Inspired Oxygen 35 01/31/24 04:00 01/31/24 04:00 01/31/24 02:16 Temperature 37.9 C H Pulse Rate 65 67 Respiratory Rate 22 H Blood Pressure 127/54 L Pulse Oximetry 90 Oxygen Delivery Fraction of Inspired Oxygen 35 01/31/24 02:31 01/31/24 03:21 01/31/24 03:31 Temperature 37.9 C H 37.6 C 37.5 C Pulse Rate 72 68 67 Respiratory Rate 22 H 22 H 25 H Blood Pressure 130/50 L 132/58 L 122/56 L Pulse Oximetry 93 94 92 Oxygen Delivery Fraction of Inspired Oxygen 01/31/24 03:45 01/31/24 03:46 01/31/24 04:00 Temperature 37.4 C 37.4 C 37.4 C Pulse Rate 54 L 53 L 64 Respiratory Rate 22 H 21 H 21 H Blood Pressure 121/52 L Pulse Oximetry 93 93 94 Oxygen Delivery Fraction of Inspired Oxygen 01/31/24 04:01 01/31/24 04:00 01/31/24 04:00 Temperature 37.4 C Pulse Rate 63 65 65 Respiratory Rate 23 H 22 H 22 H Blood Pressure 133/54 L Pulse Oximetry 94 Oxygen Delivery Fraction of Inspired Oxygen 01/31/24 02:30 01/31/24 05:30 01/31/24 06:00 Temperature Pulse Rate 69 61 61 Respiratory Rate 26 H 22 H Blood Pressure Pulse Oximetry 95 Oxygen Delivery Mechanical Ventilation Fraction of Inspired Oxygen 35 01/31/24 06:00 01/31/24 06:00 01/31/24 05:01 Temperature 37.3 C Pulse Rate 61 60 62 Respiratory Rate 22 H 21 H Blood Pressure 113/61 Pulse Oximetry 94 Oxygen Delivery Fraction of Inspired Oxygen 01/31/24 06:01 01/31/24 07:30 01/31/24 07:30 Temperature 37.4 C Pulse Rate 60 59 L 59 L Respiratory Rate 21 H 23 H Blood Pressure 133/56 L Pulse Oximetry 96 96 Oxygen Delivery Mechanical Ventilation Fraction of Inspired Oxygen 35 01/31/24 07:40 01/31/24 08:05 01/31/24 08:00 Temperature 37.5 C Pulse Rate 62 52 L Respiratory Rate 24 H 22 H Blood Pressure 118/47 L Pulse Oximetry 94 Oxygen Delivery Mechanical Ventilation Fraction of Inspired Oxygen 35 01/31/24 08:00 01/31/24 08:00 01/31/24 08:00 Temperature Pulse Rate 52 L 52 L Respiratory Rate 22 H 22 H Blood Pressure Pulse Oximetry Oxygen Delivery Fraction of Inspired Oxygen 35 01/31/24 09:46 01/31/24 09:24 01/31/24 09:50 Temperature Pulse Rate 53 L 66 66 Respiratory Rate 27 H 27 H Blood Pressure Pulse Oximetry 94 Oxygen Delivery Mechanical Ventilation Fraction of Inspired Oxygen 35 01/31/24 10:00 01/31/24 08:00 01/31/24 10:00 Temperature 37.2 C Pulse Rate 61 54 L Respiratory Rate 25 H 22 H Blood Pressure 125/62 Pulse Oximetry 94 94 Oxygen Delivery Mechanical Ventilation Fraction of Inspired Oxygen 35 01/31/24 10:36 01/31/24 10:42 01/31/24 08:00 Temperature Pulse Rate 50 L 60 63 Respiratory Rate 20 20 Blood Pressure Pulse Oximetry Oxygen Delivery Fraction of Inspired Oxygen 01/31/24 10:00 01/31/24 12:36 01/31/24 11:00 Temperature Pulse Rate 61 75 62 Respiratory Rate 20 22 H Blood Pressure Pulse Oximetry Oxygen Delivery Fraction of Inspired Oxygen 01/31/24 11:30 01/31/24 13:05 01/31/24 13:05 Temperature Pulse Rate 74 75 75 Respiratory Rate 18 22 H Blood Pressure Pulse Oximetry 96 Oxygen Delivery Mechanical Ventilation Fraction of Inspired Oxygen 35 01/31/24 13:14 Temperature Pulse Rate 80 Respiratory Rate 17 Blood Pressure Pulse Oximetry Oxygen Delivery Fraction of Inspired Oxygen Exam Const: General: no acute distress Neck: Neck: supple Resp: Effort & Inspection: normal respiratory effort Auscultation: clear to auscultation bilaterally Other: Patient is currently intubated. Cardio: Rate: regular rate Rhythm: regular rhythm GI: Other: Abdomen is soft and nondistended. No tenderness. No masses or hernias. Skin: Other: Patient has 2+ palpable bilateral common femoral artery pulses. No active groin rashes or infections. Bilateral extremities are warm to the touch. Neuro: Other: Patient is intubated Extrem: Other: No swelling of the lower extremities. Psych: Other: Patient intubated. Results Labs 01/31/24 05:18 01/31/24 05:18 Labs: Short CBC 01/31/24 Range/Units 05:18 WBC 13.8 H (4.5-10.0) K/mm3 Hgb 8.6 L (12.0-15.0) g/dL Hct 26.8 L (37.0-47.0) % Plt Count 301 (150-375) k/mm3 BMP 01/31/24 05:18 Sodium 142 Potassium 4.1 Chloride 103 Carbon Dioxide 29 BUN 63 H Creatinine 1.50 H Glucose 257 H Calcium 9.0 Liver Function 01/31/24 Range/Units 05:18 Total Bilirubin 0.9 (0.2-1.3) mg/dL AST 47 H (14-36) U/L ALT 31 (6-35) U/L Alkaline Phosphatase 127 H (38-126) U/L Albumin 3.6 (3.5-5.1) g/dL
[2024-01-31] MEDS: BUMETANIDE INJ 2.5 MG/10 ML VIAL 2 MG IV PUSH (13:53)
[2024-01-31 14:00] LABS: Glucose Point of Care 230 mg/dl (65-105)
[2024-01-31 14:07] LABS: Alveolar/Arterial O2 Gradient 143.9 mmHg; Base Excess ABG 3.2 mEq/l (+/-2.0); Carboxyhemoglobin 0.3 % THb (0-2.0); Fractional Inspired Oxygen 35 %; HCO3 ABG 25.5 mEq/l (22.0-26.0); Methemoglobin ABG 0.1 %THb (0-1.5); Oxygen Content ABG 13.1 %vol (16.0-22.0); Oxygen Saturation ABG 95.9 % (95.0-100.0); Oxyhemoglobin 94.3 % THb (90.0-100.0); PCO2 ABG 30.6 mmHg (35.0-45.0); PO2 ABG 70.1 mmHg (80.0-100.0); Reduced Hemoglobin 5.3 %THb (0-5.0); Total Hemoglobin 9.8 g/dL (12.0-18.0)
[2024-01-31 14:09] LABS: Site Drawn RIGHT BRACHIAL; pH ABG 7.538 (7.350-7.450)
[2024-01-31 14:10] LABS: Arterial Blood Gas PEEP 5 cmH2O; Arterial Blood Gas Vent Mode SPONTANEOUS; Device VENTILATOR
[2024-01-31 14:11] LABS: Arterial Blood Gas Pressure Support 8 cmH2O
[2024-01-31] MEDS: EPOETIN ALFA-EPBX 10,000 UNITS/ML VIAL 10000 UNITS SUB-Q (14:25)
--- NOTE | 2024-01-31 14:37 | PC.NURSE ---
Patient extubated per MD orders at 1419 by RT. Patient placed on 8L HFNC with oxygen saturations at 93%. OG tube removed with ETT.
[2024-01-31 16:45] LABS: Glucose Point of Care 112 mg/dl (65-105)
[2024-01-31 20:50] LABS: Glucose Point of Care 117 mg/dl (65-105)
[2024-02-01] VITALS (73 sets, daily range): BP systolic 124–186; BP diastolic 42–110; PULSE 48–81; RESP 11–22; TEMP 36.3–37.5; O2SAT 89–99
[2024-02-01] MEDS: dexmedeTOMIDine 400 MCG/100 ML 400 MCG/100 ML BAG IV CONT (00:22)
[2024-02-01 02:17] LABS: Glucose Point of Care 117 mg/dl (65-105)
[2024-02-01] MEDS: IPRATROPIUM 0.5 MG/ALBUTEROL SULFATE 2.5 MG AMPUL.NEB 3 ML INHALATION ×4 (02:41→20:25)
[2024-02-01] MEDS: ACETYLCYSTEINE 20% INHAL SOLN 800 MG/4 ML VIAL 200 MG INHALATION ×4 (02:41→20:25)
[2024-02-01] MEDS: AMPICILLIN SULB 3 GM/NS 100 ML 3 GM/100 ML VIAL IVPB ×4 (03:53→20:07)
[2024-02-01 04:09] LABS: Glucose Point of Care 105 mg/dl (65-105)
[2024-02-01 05:26] LABS: Alveolar/Arterial O2 Gradient 373.7 mmHg; Carboxyhemoglobin 0.7 % THb (0-2.0); Fractional Inspired Oxygen 66 %; HCO3 ABG 27.3 mEq/l (22.0-26.0); Oxygen Content ABG 13.8 %vol (16.0-22.0); Oxygen Saturation ABG 94.5 % (95.0-100.0); Oxyhemoglobin 91.6 % THb (90.0-100.0); PCO2 ABG 32.2 mmHg (35.0-45.0); PO2 ABG 61.9 mmHg (80.0-100.0); PO2 FiO2 Ratio Arterial Blood 0.94 %; Reduced Hemoglobin 7.7 %THb (0-5.0); Total Hemoglobin 10.7 g/dL (12.0-18.0)
[2024-02-01 05:27] LABS: Modified Allen's Test Pass; Site Drawn RIGHT RADIAL; pH ABG 7.546 (7.350-7.450)
[2024-02-01 05:28] LABS: Device HIGH FLOW THERAPY
[2024-02-01 05:32] LABS: Alanine Aminotransferase 55 U/L (6-35); Albumin Level 3.9 g/dL (3.5-5.1); Alkaline Phosphatase 116 U/L (38-126); Anion Gap 9 mmol/L (4-12); Aspartate Amino Transferase 94 U/L (14-36); Bilirubin,Total 1.7 mg/dL (0.2-1.3); Blood Urea Nitrogen 47 mg/dL (7-17); Calcium 8.9 mg/dL (8.4-10.2); Carbon Dioxide 33 mmol/L (22-30); Chloride 101 mmol/L (98-107); Estimated CRCL calculation 33 ml/min; Estimated Glomerular Filt Rate 40; Glucose 112 mg/dL (65-110); Magnesium 1.6 mg/dL (1.6-2.3); Phosphorus 5.1 mg/dL (2.5-4.5); Potassium 2.8 mmol/L (3.4-5.0); Sodium 143 mmol/L (137-145)
[2024-02-01 05:56] LABS: Vancomycin Random 22.4 ug/mL (10-20)
[2024-02-01] MEDS: MAGNESIUM SULF 2 GM/WATER 50ML 2 GM/50 ML BAG IVPB (06:33)
[2024-02-01] MEDS: LEVOTHYROXINE SODIUM 112 MCG TABLET PO (06:40)
[2024-02-01] MEDS: KCL 40 MEQ/WATER 100 ML 100 ML 25 ML IVPB (07:34)
[2024-02-01 08:25] LABS: Glucose Point of Care 111 mg/dl (65-105)
--- NOTE | 2024-02-01 09:05 | P.PNNP_ITS ---
Progress Note: A&P Assessment and Plan (1) Acute kidney injury: Code(s): N17.9 - Acute kidney failure, unspecified Status: Acute Assessment and Plan: * initial improvement on admission (from 1.5mg/dl to 0.9mg/dl) * then worsening again noted on 01/21 (up to 1.3mg/dl and subsequently 2.3mg/dl on 01/22) * suspect multifactorial etiology: * contrast exposure * infection/sepsis * hemodynamic instability/shock * possible prerenal factors * diuretic use prior to admission * hypoxia * other(?) * evaluation to date noted: * CPK mildly elevated * UA with blood/protein and possible infection * urine electrolytes prerenal * moderate proteinuria * renal ultrasound w/o obstruction * No dialysis in 4 days. * Creatinine has continued to improve. * Consider removal of the catheter soon (2) Acute respiratory failure: Code(s): J96.00 - Acute respiratory failure, unspecified whether with hypoxia or hypercapnia Status: Acute Assessment and Plan: * thought to be secondary to a combination of pneumonia and pulmonary embolus +/- pulmonary edema * appears to have progressed to ARDS * intubated and placed on mechanical ventilation on 01/20 * now extubated and breathing. He is getting oxygen by [employer] (3) Septic shock: Code(s): A41.9 - Sepsis, unspecified organism; R65.21 - Severe sepsis with septic shock Status: Acute Assessment and Plan: * as noted on admission - hypotension, lactic acidosis, fevers, and hypoxia/respiratory failure * presumed source = pneumonia +/- diverticulitiis * s/p IVF resuscitation and vasopressor support (weaned off currently) * recent cultures of blood sputum and urine have been okay * on Vanco plus Unasyn (4) Community acquired pneumonia: Qualifiers: Laterality: left Lung location: lower lobe of lung Qualified Code(s): J18.9 - Pneumonia, unspecified organism Code(s): J18.9 - Pneumonia, unspecified organism Status: Acute Assessment and Plan: * based on evidence to date * viral swab for RSV/COVID/influenza negative * follow culture data * on vanco plus Unasyn (5) Pulmonary embolism: Code(s): I26.99 - Other pulmonary embolism without acute cor pulmonale Status: Acute Assessment and Plan: * admission CTA of chest with nonocclusive acute subsegmental PE in the left lower lobe with small clot burden * venous dopplers negative * anticoagulation currently on hold due low H/H (6) Diverticulitis: Code(s): K57.92 - Diverticulitis of intestine, part unspecified, without perforation or abscess without bleeding Status: Acute Assessment and Plan: * CT abdomen pelvis with mural thickening within the rectosigmoid colon with multiple diverticula and prominence of the vasa recta, possibly early diverticulitis. Interval development of perihepatic fluid, compared with previous study * remains on antibiotics * cultures negative lately (7) Anemia: Code(s): D64.9 - Anemia, unspecified Status: Acute Assessment and Plan: * presumably due to YESI and acute illness * hemoglobin stable in the 8s * EPO subcu 3 times a week now that she is off dialysis (8) Diabetes: Code(s): E11.9 - Type 2 diabetes mellitus without complications Status: Acute Assessment and Plan: * On accu-cheks * glycemic control per cruise counselor/hospitalist Subjective Date/time seen: 02/01/24 09:05 Interval history: the patient was extubated yesterday. She is answering questions. I want to go home. Daughter is in the room Exam Narrative: General: elderly but WD/WN female intubated/sedated and on mechanical ventilation Heart: normal S1 and S2; no rub or gallop Lungs: breath sounds symmetric. No wheezes. Abdomen: soft, nontender, nondistended, positive bowel sounds Extremities: no cyanosis or clubbing; no edema Skin: no rash or subcu nodules Objective Data Vital Signs Vital Signs: Vital Signs - 24 hr 01/31/24 09:46 01/31/24 09:24 01/31/24 09:50 Temperature Pulse Rate 53 L 66 66 Respiratory Rate 27 H 27 H Blood Pressure Pulse Oximetry 94 Oxygen Delivery Mechanical Ventilation Oxygen Flow Rate Fraction of Inspired Oxygen 35 01/31/24 10:00 01/31/24 10:00 01/31/24 10:36 Temperature 99 F Pulse Rate 61 54 L 50 L Respiratory Rate 25 H 22 H 20 Blood Pressure 125/62 Pulse Oximetry 94 Oxygen Delivery Oxygen Flow Rate Fraction of Inspired Oxygen 01/31/24 10:42 01/31/24 10:00 01/31/24 12:36 Temperature Pulse Rate 60 61 75 Respiratory Rate 20 20 Blood Pressure Pulse Oximetry Oxygen Delivery Oxygen Flow Rate Fraction of Inspired Oxygen 01/31/24 11:00 01/31/24 11:30 01/31/24 13:05 Temperature Pulse Rate 62 74 75 Respiratory Rate 22 H 18 Blood Pressure Pulse Oximetry 96 Oxygen Delivery Mechanical Ventilation Oxygen Flow Rate Fraction of Inspired Oxygen 35 01/31/24 13:05 01/31/24 13:14 01/31/24 12:00 Temperature 99.4 F Pulse Rate 75 80 78 Respiratory Rate 22 H 17 19 Blood Pressure 156/70 H Pulse Oximetry 96 Oxygen Delivery Oxygen Flow Rate Fraction of Inspired Oxygen 01/31/24 12:00 01/31/24 13:46 01/31/24 14:25 Temperature Pulse Rate 86 70 Respiratory Rate 15 14 Blood Pressure Pulse Oximetry Oxygen Delivery Oxygen Flow Rate Fraction of Inspired Oxygen 35 01/31/24 14:00 01/31/24 12:00 01/31/24 14:21 Temperature 99.8 F H Pulse Rate 78 71 Respiratory Rate 14 13 Blood Pressure 154/74 H Pulse Oximetry 96 96 93 Oxygen Delivery Mechanical Ventilation High Flow Nasal Cannula Oxygen Flow Rate 8 Fraction of Inspired Oxygen 35 01/31/24 12:00 01/31/24 14:00 01/31/24 12:49 Temperature Pulse Rate 80 75 Respiratory Rate Blood Pressure Pulse Oximetry Oxygen Delivery Oxygen Flow Rate Fraction of Inspired Oxygen 35 01/31/24 14:20 01/31/24 16:00 01/31/24 16:00 Temperature 99.5 F Pulse Rate 70 68 72 Respiratory Rate 12 Blood Pressure 158/64 H Pulse Oximetry 93 94 Oxygen Delivery Oxygen Flow Rate Fraction of Inspired Oxygen 01/31/24 16:00 01/31/24 16:00 01/31/24 18:00 Temperature 99.7 F H Pulse Rate 69 72 Respiratory Rate 13 13 Blood Pressure 167/65 H Pulse Oximetry 92 93 Oxygen Delivery High Flow Nasal Cannula Oxygen Flow Rate 8 Fraction of Inspired Oxygen 01/31/24 18:00 01/31/24 17:00 01/31/24 18:00 Temperature Pulse Rate 72 70 63 Respiratory Rate 12 12 Blood Pressure Pulse Oximetry Oxygen Delivery Oxygen Flow Rate Fraction of Inspired Oxygen 01/31/24 20:22 01/31/24 20:22 01/31/24 20:34 Temperature Pulse Rate 66 66 69 Respiratory Rate 18 18 13 Blood Pressure Pulse Oximetry 93 Oxygen Delivery High Flow Nasal Cannula Oxygen Flow Rate 8 Fraction of Inspired Oxygen 01/31/24 20:00 01/31/24 21:18 01/31/24 20:00 Temperature Pulse Rate 73 72 74 Respiratory Rate 17 17 Blood Pressure Pulse Oximetry 90 92 Oxygen Delivery High Flow Nasal Cannula High Flow Nasal Cannula Oxygen Flow Rate 8 12 Fraction of Inspired Oxygen 01/31/24 20:00 01/31/24 21:00 01/31/24 22:45 Temperature 99.4 F Pulse Rate 73 Respiratory Rate 17 Blood Pressure 173/108 H 129/74 Pulse Oximetry 90 96 Oxygen Delivery High Flow Therapy with Fa Oxygen Flow Rate 60 Fraction of Inspired Oxygen 62 02/01/24 00:22 01/31/24 22:00 01/31/24 22:00 Temperature 97.9 F Pulse Rate 74 78 78 Respiratory Rate 15 17 Blood Pressure 183/71 H Pulse Oximetry 89 L Oxygen Delivery Oxygen Flow Rate Fraction of Inspired Oxygen 01/31/24 23:00 02/01/24 00:00 02/01/24 00:00 Temperature Pulse Rate 78 79 81 Respiratory Rate 16 16 Blood Pressure Pulse Oximetry 92 95 Oxygen Delivery High Flow Therapy with Na High Flow Therapy with Na Oxygen Flow Rate 60 60 Fraction of Inspired Oxygen 61 61 02/01/24 00:00 02/01/24 02:00 02/01/24 02:00 Temperature 98.8 F 99.5 F Pulse Rate 81 70 70 Respiratory Rate 16 15 Blood Pressure 186/85 H 172/52 H Pulse Oximetry 95 96 Oxygen Delivery Oxygen Flow Rate Fraction of Inspired Oxygen 02/01/24 00:22 02/01/24 00:45 02/01/24 01:00 Temperature Pulse Rate 74 74 75 Respiratory Rate 15 17 16 Blood Pressure Pulse Oximetry Oxygen Delivery Oxygen Flow Rate Fraction of Inspired Oxygen 02/01/24 01:15 02/01/24 01:30 02/01/24 01:45 Temperature Pulse Rate 75 76 72 Respiratory Rate 15 16 15 Blood Pressure Pulse Oximetry Oxygen Delivery Oxygen Flow Rate Fraction of Inspired Oxygen 02/01/24 02:00 02/01/24 02:15 02/01/24 00:01 Temperature Pulse Rate 71 73 81 Respiratory Rate 17 20 19 Blood Pressure 186/85 H Pulse Oximetry 95 Oxygen Delivery Oxygen Flow Rate Fraction of Inspired Oxygen 02/01/24 00:04 02/01/24 00:15 02/01/24 00:47 Temperature 99.5 F Pulse Rate 74 75 75 Respiratory Rate 16 13 17 Blood Pressure Pulse Oximetry 98 98 95 Oxygen Delivery Oxygen Flow Rate Fraction of Inspired Oxygen 02/01/24 02:41 02/01/24 02:41 02/01/24 02:50 Temperature Pulse Rate 73 73 67 Respiratory Rate 13 13 16 Blood Pressure Pulse Oximetry 93 Oxygen Delivery High Flow Therapy with Na Oxygen Flow Rate 60 Fraction of Inspired Oxygen 65 02/01/24 01:00 02/01/24 02:00 02/01/24 03:00 Temperature 99.5 F 99.5 F 99.4 F Pulse Rate 73 73 73 Respiratory Rate 17 16 16 Blood Pressure 162/95 H 172/52 H 158/81 H Pulse Oximetry 93 93 94 Oxygen Delivery Oxygen Flow Rate Fraction of Inspired Oxygen 02/01/24 02:30 02/01/24 02:45 02/01/24 03:00 Temperature Pulse Rate 72 73 74 Respiratory Rate 17 17 19 Blood Pressure Pulse Oximetry Oxygen Delivery Oxygen Flow Rate Fraction of Inspired Oxygen 02/01/24 03:15 02/01/24 03:30 02/01/24 03:45 Temperature Pulse Rate 70 68 68 Respiratory Rate 16 15 14 Blood Pressure Pulse Oximetry Oxygen Delivery Oxygen Flow Rate Fraction of Inspired Oxygen 02/01/24 04:00 02/01/24 05:16 02/01/24 04:00 Temperature Pulse Rate 63 65 66 Respiratory Rate 16 13 17 Blood Pressure Pulse Oximetry 92 93 Oxygen Delivery High Flow Therapy with Na High Flow Therapy with Na Oxygen Flow Rate 60 60 Fraction of Inspired Oxygen 65 69 02/01/24 04:00 02/01/24 04:00 02/01/24 04:20 Temperature 99.4 F 99.4 F Pulse Rate 67 66 69 Respiratory Rate 17 19 Blood Pressure 134/69 Pulse Oximetry 93 96 Oxygen Delivery Oxygen Flow Rate Fraction of Inspired Oxygen 02/01/24 04:30 02/01/24 04:31 02/01/24 04:45 Temperature 99.4 F 99.2 F 98.2 F Pulse Rate 69 70 71 Respiratory Rate 13 17 11 L Blood Pressure 146/51 H Pulse Oximetry 93 94 96 Oxygen Delivery Oxygen Flow Rate Fraction of Inspired Oxygen 02/01/24 04:46 02/01/24 05:00 02/01/24 05:01 Temperature 98.3 F 99.2 F 99.2 F Pulse Rate 70 66 65 Respiratory Rate 15 13 19 Blood Pressure 149/70 H 151/69 H Pulse Oximetry 92 97 95 Oxygen Delivery Oxygen Flow Rate Fraction of Inspired Oxygen 02/01/24 05:15 02/01/24 05:16 02/01/24 05:30 Temperature 99.1 F 99.0 F 99.2 F Pulse Rate 67 67 66 Respiratory Rate 18 21 H 20 Blood Pressure 155/110 H Pulse Oximetry 96 95 93 Oxygen Delivery Oxygen Flow Rate Fraction of Inspired Oxygen 02/01/24 05:31 02/01/24 05:45 02/01/24 05:46 Temperature 99.3 F 99.2 F 99.2 F Pulse Rate 70 71 70 Respiratory Rate 14 17 16 Blood Pressure 159/73 H 151/62 H Pulse Oximetry 95 89 L 93 Oxygen Delivery Oxygen Flow Rate Fraction of Inspired Oxygen 02/01/24 06:00 02/01/24 06:00 02/01/24 05:00 Temperature 99.3 F Pulse Rate 63 60 65 Respiratory Rate 15 14 Blood Pressure 140/42 L Pulse Oximetry 94 Oxygen Delivery Oxygen Flow Rate Fraction of Inspired Oxygen 02/01/24 06:00 02/01/24 07:00 02/01/24 05:47 Temperature 99.2 F Pulse Rate 63 66 68 Respiratory Rate 15 17 17 Blood Pressure Pulse Oximetry 93 Oxygen Delivery Oxygen Flow Rate Fraction of Inspired Oxygen 02/01/24 06:00 02/01/24 06:01 02/01/24 06:15 Temperature 99.3 F 99.3 F 99.3 F Pulse Rate 61 65 63 Respiratory Rate 13 18 14 Blood Pressure 140/42 L Pulse Oximetry 96 95 94 Oxygen Delivery Oxygen Flow Rate Fraction of Inspired Oxygen 02/01/24 06:16 02/01/24 06:31 02/01/24 06:35 Temperature 99.2 F 99.3 F 99.1 F Pulse Rate 67 63 63 Respiratory Rate 16 16 14 Blood Pressure 150/58 H 151/63 H Pulse Oximetry 95 96 94 Oxygen Delivery Oxygen Flow Rate Fraction of Inspired Oxygen 02/01/24 06:45 02/01/24 06:46 02/01/24 07:02 Temperature 99.3 F 99.3 F 99.3 F Pulse Rate 59 L 60 67 Respiratory Rate 19 20 16 Blood Pressure 148/61 H Pulse Oximetry 97 97 97 Oxygen Delivery Oxygen Flow Rate Fraction of Inspired Oxygen 02/01/24 07:20 02/01/24 07:30 02/01/24 07:31 Temperature 99.3 F 99.3 F 99.2 F Pulse Rate 63 62 62 Respiratory Rate 17 17 16 Blood Pressure 140/65 Pulse Oximetry 95 96 97 Oxygen Delivery Oxygen Flow Rate Fraction of Inspired Oxygen 02/01/24 08:14 02/01/24 08:18 02/01/24 08:25 Temperature Pulse Rate 63 62 Respiratory Rate 13 18 Blood Pressure Pulse Oximetry 93 Oxygen Delivery High Flow Therapy with Na Oxygen Flow Rate 60 Fraction of Inspired Oxygen 65 02/01/24 08:16 Temperature Pulse Rate 68 Respiratory Rate 19 Blood Pressure Pulse Oximetry Oxygen Delivery Oxygen Flow Rate Fraction of Inspired Oxygen Intake/Output Intake/Output: Intake & Output 01/29/24 01/30/24 01/31/24 02/01/24 23:59 23:59 23:59 23:59 Intake Total 1565.7 2075.9 1595.9 361.9 Output Total 3000 3675 3650 1000 Balance -1434.3 -1599.1 -2054.1 -638.1 Meds/Results Medications: Active Medications Generic Name Dose Route Start Last Admin Trade Name Freq PRN Reason Stop Dose Admin Acetaminophen 650 mg 01/20/24 10:08 01/30/24 18:09 Acetaminophen 325 Mg Tablet PO 650 mg Q4H PRN Administration Mild Pain (1-3) or Fever Acetylcysteine 200 mg 01/28/24 14:00 02/01/24 08:13 Acetylcysteine 20% Inhal Soln 800 Mg/4 Ml Vial INHALATION 200 mg Q6HRT EDMOND Administration Albuterol/Ipratropium 3 ml 01/22/24 14:00 02/01/24 08:14 Ipratropium 0.5 Mg/Albuterol Sulfate 2.5 Mg Ampul.Neb 3 Ml INHALATION 3 ml Q6HRT EDMOND Administration Aspirin 81 mg 01/19/24 08:00 01/31/24 09:11 Aspirin 81 Mg Chewable Tablet PO 81 mg DAILY@0800 EDMOND Administration Atorvastatin Calcium 40 mg 01/19/24 09:00 01/31/24 09:11 Atorvastatin 40 Mg Tablet PO 40 mg DAILY EDMOND Administration Clopidogrel Bisulfate 75 mg 01/19/24 09:00 01/31/24 09:10 Clopidogrel Bisulfate 75 Mg Tablet PO 75 mg DAILY EDMOND Administration Dextrose 12.5 gm 01/18/24 23:28 Dextrose 50% 25 Gm/50 Ml Syringe IV PUSH PRN PRN Hypoglycemia Protocol Epoetin Ronnell-epbx 10,000 units 01/31/24 13:30 01/31/24 14:25 Epoetin Ronnell-Epbx 10,000 Units/Ml Vial SUB-Q 10,000 units TUTHSA@09 EDMOND Administration Glucagon 1 mg 01/18/24 23:28 Glucagon For Inj 1 Mg Vial IM PRN PRN Hypoglycemia Protocol Glucose 15 gm 01/18/24 23:28 Glucose Oral Gel 15 Gm Of Glucse In 37.5 Gm Tube PO PRN PRN Hypoglycemia Protocol Dextrose 1,000 mls @ 100 mls/hr 01/18/24 23:28 Dextrose 5% 1,000 Ml IVPB PRN PRN Hypoglycemia Protocol Albumin Human 50 mls @ 999 mls/hr 01/26/24 11:40 01/27/24 09:51 Albutein IVPB 02/25/24 11:39 999 mls/hr Q10M PRN Administration HYPOTENSION Ampicillin Sodium/Sulbactam Sodium 3 gm in 100 mls @ 200 mls/hr 01/31/24 15:00 02/01/24 06:49 Unasyn 3 Gm/Ns 100 Ml IVPB Infused Q6H [facility] Infusion Dexmedetomidine HCl 400 mcg in 100 mls @ 11.58 mls/hr 01/31/24 23:45 02/01/24 08:16 Precedex 400 Mcg/100 Ml IV CONT 0.6 mcg/kg/hr .Q8H39M [facility] 11.58 mls/hr Titration Protocol 0.6 MCG/KG/HR Potassium Chloride 100 mls @ 25 mls/hr 02/01/24 05:40 02/01/24 07:34 Kcl 40 Meq/Water 100 Ml IVPB 02/01/24 09:39 25 mls/hr ONCE ONE Administration Vancomycin HCl 1,000 mg in 250 mls @ 250 mls/hr 02/01/24 10:00 Vancomycin 1,000 Mg/Ns 250 Ml IVPB Q24H [facility] Insulin Aspart 4 - 8 units 01/19/24 12:00 02/01/24 08:49 Insulin Aspart (*Bkc) 100 Units/Ml SUB-Q Not Given Q4H [facility] Protocol Insulin Glargine 75 units 02/01/24 09:00 Insulin Glargine (*Bkc) 100 Units/Ml SUB-Q QAM EDMOND Levothyroxine Sodium 112 mcg 01/19/24 06:30 02/01/24 06:40 Levothyroxine Sodium 112 Mcg Tablet PO 112 mcg DAILY@0630 EDMOND Administration Midazolam HCl 4 mg 01/21/24 09:35 01/30/24 16:56 Midazolam Hcl (*Crx) 2 Mg/2 Ml Vial IV PUSH 4 mg PRN PRN Administration Sedation Multi-Ingred Cream/Lotion/Oil/Oint 1 applic 01/21/24 09:00 01/31/24 19:36 Mineral Oil/White Petrolatum Ointment EACH EYE Not Given Q12HR [facility]MOND Ondansetron HCl 4 mg 01/18/24 22:13 Ondansetron Inj 4 Mg/2 Ml Vial IV PUSH Q4H PRN Nausea Pantoprazole Sodium 40 mg 01/19/24 09:00 01/31/24 20:35 Pantoprazole Sodium Iv 40 Mg Vial IV PUSH 40 mg Q12HR EDMOND Administration Polyethylene Glycol 17 gm 01/29/24 10:19 Polyethylene Glycol 3350 17 Gm Powd.Pack PO QAM PRN Constipation Radiology Results: ITS Impressions Chest/Abdomen/Pelvis CTA 01/18/24 18:30 IMPRESSION: Nonocclusive acute subsegmental pulmonary embolus in the left lower lobe. Very small clot burden. No evidence of right heart strain. Left lower lobe pneumonia. Mild hepatomegaly. Possible cystitis. Otherwise, no acute abdominopelvic process detected. Chest/Abdomen/Pelvis CT 01/22/24 12:43 IMPRESSION: Worsening respiratory status with bibasilar consolidation and interstitial thickening with patchy groundglass opacification bilaterally -findings suggesting ARDS. Mural thickening within the rectosigmoid colon with multiple diverticula and prominence of the vasa recta, possibly early diverticulitis. Interval development of perihepatic fluid, compared with previous study. Renal Ultrasound 01/24/24 12:05 IMPRESSION: 1. Normal kidneys without hydronephrosis. Abdomen X-Ray 01/25/24 14:53 IMPRESSION: NG tube in distal stomach Nonspecific abdomen Venous Doppler Study 01/30/24 14:52 IMPRESSION: 1. Small amount of nonocclusive deep venous thrombosis at the right common femoral vein reported site of a recently removed central venous catheter. No other deep venous thrombosis in the remainder of the bilateral lower limbs. Head CT 01/31/24 08:55 IMPRESSION: Cerebral atherosclerosis and chronic small vessel ischemic changes of the cerebral white matter No acute intracranial finding Moderate mucoperiosteal thickening of the left sphenoid sinus and partial opacification of mastoid air cells bilaterally Chest X-Ray 02/01/24 05:59 IMPRESSION: 1. Stable diffuse lung disease, consistent with pneumonia. 2. Emphysema. 3. Cardiomegaly. Labs Labs: Laboratory Results - last 24 hr 01/31/24 01/31/24 01/31/24 09:06 12:36 14:03 Puncture Site Right brachial ABG pH 7.538 H* ABG pCO2 30.6 L ABG pO2 70.1 L ABG PO2/FiO2 Ratio 2.00 ABG HCO3 25.5 ABG O2 Saturation 95.9 ABG O2 Content 13.1 L ABG Base Excess 3.2 A-a Gradient 143.9 Oxyhemoglobin 94.3 Carboxyhemoglobin 0.3 Methemoglobin 0.1 Reduced Hemoglobin 5.3 H Total Hemoglobin 9.8 L O2 Delivery Device Ventilator O2 Liters/Min Not Reportable Minute Volume Not Reportable Vent Rate Not Reportable Vent Mode Spontaneous FiO2 35 Tidal Volume Not Reportable PEEP 5 Peak Inspir Pressure Not Reportable Pressure Support 8 Sodium Potassium Chloride Carbon Dioxide Anion Gap BUN Creatinine Estim Creat Clear Calc Estimated GFR Glucose POC Capillary Glucose 236 H 230 H Calcium Phosphorus Magnesium Total Bilirubin AST ALT Alkaline Phosphatase Total Protein Albumin Random Vancomycin 01/31/24 01/31/24 02/01/24 16:11 19:55 00:04 Puncture Site ABG pH ABG pCO2 ABG pO2 ABG PO2/FiO2 Ratio ABG HCO3 ABG O2 Saturation ABG O2 Content ABG Base Excess A-a Gradient Oxyhemoglobin Carboxyhemoglobin Methemoglobin Reduced Hemoglobin Total Hemoglobin O2 Delivery Device O2 Liters/Min Minute Volume Vent Rate Vent Mode FiO2 Tidal Volume PEEP Peak Inspir Pressure Pressure Support Sodium Potassium Chloride Carbon Dioxide Anion Gap BUN Creatinine Estim Creat Clear Calc Estimated GFR Glucose POC Capillary Glucose 112 H 117 H 117 H Calcium Phosphorus Magnesium Total Bilirubin AST ALT Alkaline Phosphatase Total Protein Albumin Random Vancomycin 02/01/24 02/01/24 02/01/24 03:42 05:01 05:18 Puncture Site Right radial ABG pH 7.546 H* ABG pCO2 32.2 L ABG pO2 61.9 L ABG PO2/FiO2 Ratio 0.94 ABG HCO3 27.3 H ABG O2 Saturation 94.5 L ABG O2 Content 13.8 L ABG Base Excess 5.0 A-a Gradient 373.7 Oxyhemoglobin 91.6 Carboxyhemoglobin 0.7 Methemoglobin 0.0 Reduced Hemoglobin 7.7 H Total Hemoglobin 10.7 L O2 Delivery Device High flow therapy O2 Liters/Min 60.0 Minute Volume Vent Rate Vent Mode FiO2 66 Tidal Volume PEEP Peak Inspir Pressure Pressure Support Sodium 143 Potassium 2.8 L* Chloride 101 Carbon Dioxide 33 H Anion Gap 9 BUN 47 H D Creatinine 1.30 H Estim Creat Clear Calc 33 Estimated GFR 40 L Glucose 112 H POC Capillary Glucose 105 Calcium 8.9 Phosphorus 5.1 H Magnesium 1.6 Total Bilirubin 1.7 H AST 94 H ALT 55 H Alkaline Phosphatase 116 Total Protein 8.0 Albumin 3.9 Random Vancomycin 22.4 H 02/01/24 08:22 Puncture Site ABG pH ABG pCO2 ABG pO2 ABG PO2/FiO2 Ratio ABG HCO3 ABG O2 Saturation ABG O2 Content ABG Base Excess A-a Gradient Oxyhemoglobin Carboxyhemoglobin Methemoglobin Reduced Hemoglobin Total Hemoglobin O2 Delivery Device O2 Liters/Min Minute Volume Vent Rate Vent Mode FiO2 Tidal Volume PEEP Peak Inspir Pressure Pressure Support Sodium Potassium Chloride Carbon Dioxide Anion Gap BUN Creatinine Estim Creat Clear Calc Estimated GFR Glucose POC Capillary Glucose 111 H Calcium Phosphorus Magnesium Total Bilirubin AST ALT Alkaline Phosphatase Total Protein Albumin Random Vancomycin
[2024-02-01] MEDS: PANTOPRAZOLE SODIUM IV 40 MG VIAL IV PUSH ×2 (09:07→20:07)
--- NOTE | 2024-02-01 09:23 | PCOTNOTE ---
Attempted to see patient for OT evaluation. Per nursing patient is on too much oxygen at this time to mobilize out of bed. She reports she will hopefully be more appropriate for therapy tomorrow. Will continue to attempt.
--- NOTE | 2024-02-01 10:11 | PCPTNOTE ---
Nursing reports patient is intunated, but still requiring a lot of O2, request to check back on patient tomorrow.
[2024-02-01] MEDS: dexmedeTOMIDine 400 MCG/100 ML 400 MCG/100 ML BAG 11.58 MCG IV CONT (10:52)
[2024-02-01] MEDS: CLOPIDOGREL BISULFATE 75 MG TABLET PO (10:56)
[2024-02-01] MEDS: POTASSIUM CHLORIDE 20 MEQ PACKET (FOR LIQUID) 40 MEQ PO (10:56)
[2024-02-01] MEDS: ASPIRIN 81 MG CHEWABLE TABLET PO (10:56)
[2024-02-01] MEDS: ATORVASTATIN 40 MG TABLET PO (10:56)
--- NOTE | 2024-02-01 10:59 | PCSTNOTE ---
Please refer to the Bedside Swallow Evaluation in the EMR. Please note, silent aspiration cannot be ruled out at bedside.
[2024-02-01] MEDS: ALPRAZolam (*CRX) 0.125 MG TABLET PO ×2 (11:13→20:08)
[2024-02-01] MEDS: VANCOMYCIN 1,000 MG/NS 250 ML 1,000 MG/250 ML BAG 250 MG IVPB (11:13)
--- NOTE | 2024-02-01 11:43 | P.PNINT_ITS ---
Progress Note: A&P Assessment and Plan (1) Acute respiratory failure: Code(s): J96.00 - Acute respiratory failure, unspecified whether with hypoxia or hypercapnia Status: Acute Assessment and Plan: Acute Respiratory failure secondary to pneumonia and PE. Patient appears to have developed ARDS Patient had became CPAP dependent 100% FiO2. Forty of Lasix given IV last night without any significant improvement. Patient does not have any edema on lower extremity suggestive of heart failure. Echo reviewed. 01/20 patient intubated for discussion with the patient and her daughter. ABG reviewed and low tidal volume ventilation. PEEP set at 12 tidal volume at 300 mL. FiO2 is 100%. Increase respiratory rate to 26 Post intubation patient was coughing and gagging leading to desaturation hence was given rocuronium. Patient was started on Nimbex infusion along with sedation at this time. Patient was placed in prone position 01/21 patient was switched to supine position around 2:00 a.m.. She is a 70% FiO2 and 12 of PEEP 01/22 on 55% FiO2 and 12 of PEEP. ABG reviewed. Decrease respiratory rate to 24. Continue to wean FiO2. CT scan done yesterday showed IMPRESSION: Worsening respiratory status with bibasilar consolidation and interstitial thickening with patchy groundglass opacification bilaterally -findings suggesting ARDS. 01/23 overnight patient had increased oxygen requirement. Yesterday morning neuromuscular yasemin infusion was discontinued but patient later was a synchronous with the ventilator with coughing and gagging. Sedation was increased but did not fix the problem patient desaturated. Nimbex infusion was restarted. This morning she is on 70% FiO2 and Wean FiO2 to 65% this morning Status post steroids for pneumonia and ARDS Status post Nimbex 01/24 continues to be on mechanical ventilation and is on 70% FiO2 and 12 of PEEP. I will increase the PEEP to 14. 01/25 Chest x-ray reviewed and does not show any significant change and shows stable diffuse lung disease Continue Low tidal volume ventilation and permissive hypercapnia and permissive respiratory acidosis 01/25: Started dialysis with removal of 1066 mL in fluid removal -remains on CMV mode of ventilation, peep of 8 and 35% FiO2, -Continue Bronchodilators 01/28: Diuresed well with Bumex with 1400 mL in negative fluid balance 01/29: Discussed with Nephrology, diuresed well with Bumex with approximately 1600 mL in negative fluid balance 01/30: Chest x-ray - Stable or mildly improved extensive bilateral pulmonary infiltrates, most prominent in the lower lobes, especially left lower lobe. 01/30: Patient was placed on SBT, did very well, are is be eyes were 20s to 30s, post SBT ABG load good, patient was extubated only to require oxygen later in the evening and was placed on high-flow therapy 01/31: Remains on high-flow therapy, 60% FiO2 and 60 L flow rate. Discussed with patient and her daughter who is the POA, if she continues to require more oxygen and worsens to a level where she needs to be intubated the daughter/POA decided that she would want the patient to be intubated and placed on mechanical ventilation (2) Septic shock: Code(s): A41.9 - Sepsis, unspecified organism; R65.21 - Severe sepsis with septic shock Status: Acute Assessment and Plan: Secondary to pneumonia 01/17: Patient presented with hypotension, elevated lactic acid levels, fevers, cough, hypoxia -received 30 mL/kg IV fluids -started on Levophed via femoral central line - Off IV fluids vasopressors now -01/17: Blood cultures have been obtained and negative till now MRSA screen negative Urine pneumococcal antigen negative Urine Legionella antigen pending Influenza RSV and COVID PCR negative 01/22: Sputum cultures growing MRSA, -continue vancomycin 01/26 Flagyl and ceftriaxone discontinued 01/28: Patient has been febrile with a T-max of 101.3?, 01/28: Blood, and sputum cultures negative so far 01/28: Urine cultures with no growth -01/30 CT brain, showed Moderate mucoperiosteal thickening of the left sphenoid sinus and partial opacification of mastoid air cells bilaterally -given patient continues to have low-grade fevers, started patient on Unasyn for possible sinusitis (01/30) (3) Community acquired pneumonia: Qualifiers: Laterality: left Lung location: lower lobe of lung Qualified Code(s): J18.9 - Pneumonia, unspecified organism Code(s): J18.9 - Pneumonia, unspecified organism Status: Acute Assessment and Plan: See above (4) Diabetes: Code(s): E11.9 - Type 2 diabetes mellitus without complications Status: Acute Assessment and Plan: Uncontrolled Continue Accu-Cheks and sliding scale insulin Lantus currently on hold since patient is NPO (5) Acute kidney injury: Code(s): N17.9 - Acute kidney failure, unspecified Status: Acute Assessment and Plan: Patient initially presented with Acute kidney injury likely related to hypotension, septic shock She was adequately fluid-resuscitated and came off of IV fluids Creatinine normalized initially Patient did receive contrast for CTA Creatinine increased post intubation. 01/22 Lasix IV x1 Patient was given 25% albumin and will give 5% albumin. Will avoid liberal fluids due to patient's respiratory status. Patient is positive her I/O balance 01/25: Creatinine continues to increase along with elevated BUN today. Urine output also decreasing. Dr Dunbar discussed with nephrology and family will plan to initiate dialysis. Temporary dialysis catheter placed after obtaining consent from patient's family. Discussed with nephrology. [employer] will arrange for dialysis 01/25: Started dialysis with 1066 mL in fluid removal 01/26: Dialysis with 883 mL in fluid removal 01/27: Dialysis with 3000 mL in fluid removal 01/28: Diuresed with Bumex with good urine output and approx 1400 mL in negative fluid balance 01/29: Diuresis with Bumex with good urine output and approx 1600 mL in negati ve fluid balance 01/30: Diuresis Bumex with good urine output in approximately 2000 mL in negative fluid balance 01/31: Discussed with Nephrology, will hold diuresis today since patient's potassium is low and being repleted. If she does not have good urine output during the end of the day will diurese with Bumex per Nephrology (6) Pulmonary embolism: Code(s): I26.99 - Other pulmonary embolism without acute cor pulmonale Status: Acute Assessment and Plan: 01/18: Venous Dopplers negative 01/26: Heparin infusion is being held due to anemia and hematuria and drop in hemoglobin -will continue to monitor hemoglobin levels, if remains stable, may start Lovenox 1 mg/kg daily starting 01/27 01/27: Hemoglobin 7.0 this morning, will continue to hold anticoagulation, status post 1 unit of packed RBC 01/29: Remains febrile, venous Dopplers: Small amount of nonocclusive deep venous thrombosis at the right common femoral vein reported site of a recently removed central venous catheter. No other deep venous thrombosis in the remainder of the bilateral lower limbs. -patient did not tolerate anticoagulation for a small PE, appreciate surgical evaluation, IVC filter placement on Friday, 02/02/202401/17: CT chest abdomen and pelvis IMPRESSION: Nonocclusive acute subsegmental pulmonary embolus in the left lower lobe. Very small clot burden. No evidence of right heart strain. Left lower lobe pneumonia. Mild hepatomegaly. Possible cystitis. Otherwise, no acute abdominopelvic process detected. Echo Summary 1. Left ventricular systolic function is normal, estimated at 55-60%. 2. There is mildly increased left ventricular wall thickness. 3. The left ventricular diastolic function is grade I diastolic dysfunction. 4. There is trace mitral valve regurgitation. 5. There is trace tricuspid valve regurgitation. 6. No pulmonary hypertension, estimated pulmonary arterial systolic pressure is 41 mmHg. 7. Right ventricular systolic function is normal. 8. Right ventricular chamber dimension is normal. (7) Electrolyte abnormality: Code(s): E87.8 - Other disorders of electrolyte and fluid balance, not elsewhere classified Status: Acute Assessment and Plan: Sodium levels have improved -continue tube feed flushes (8) Diverticulitis: Code(s): K57.92 - Diverticulitis of intestine, part unspecified, without perforation or abscess without bleeding Status: Acute Assessment and Plan: CT abdomen pelvis showed Mural thickening within the rectosigmoid colon with multiple diverticula and prominence of the vasa recta, possibly early diverticulitis. Interval development of perihepatic fluid, compared with previous study. Status post ceftriaxone and Flagyl (9) Ileus: Code(s): K56.7 - Ileus, unspecified Status: Acute Assessment and Plan: Patient has been having high tube feed residuals, Reglan was started on 01/26/2024. Patient tolerating tube feeds better. Has been having bowel movements -01/28: tube feeds have been switched to Nepro on 01/27, currently at goal, positive bowel movements (10) Anemia: Code(s): D64.9 - Anemia, unspecified Status: Acute Assessment and Plan: Patient's hemoglobin has gradually trended down over last 4-5 days. She is on heparin infusion for PE. There has been no evidence of bleeding. Continue monitor this time. Transfuse if hemoglobin less than 7. Platelets are at acceptable level. She is also on aspirin Plavix for coronary disease She is on Protonix twice a day 01/26: Hemoglobin dropped to 7.1, will hold heparin infusion. Monitor hemoglobin levels and if the improved restart either heparin infusion or Lovenox 1 mg/kg daily 01/27: Hemoglobin 7.0 this morning, status post 1 unit of packed RBCs with hemodialysis, continue to hold anticoagulation 01/31: Hemoglobin remains stable at this time, anticoagulation continues to be on hold (11) Encephalopathy: Code(s): G93.40 - Encephalopathy, unspecified Status: Acute Assessment and Plan: Patient was encephalopathic, was not initially opening her eyes or follows commands 01/30: -this morning she did open her eyes and follows simple commands on the lower extremities. 01/31: Patient is awake, alert, oriented x2, pleasantly confused on Precedex infusion 01/30: CT brain Cerebral atherosclerosis and chronic small vessel ischemic changes of the cerebral white matter No acute intracranial finding Moderate mucoperiosteal thickening of the left sphenoid sinus and partial opacification of mastoid air cells bilaterally Plan DVT prophylaxis: Heparin infusion has been stopped due to drop in hemoglobin, continue SCDs Stress ulcer prophylaxis: Protonix IV q.12 hours Nutrition: Currently NPO will have speech evaluate for bedside swallow Code Status: 01/20 Dr Dunbar spoke to patient prior to intubation about cold and goals of care. She stated that she would like 1-2 rounds of resuscitation in case of cardiac arrest to see if she can be brought back but does not want prolonged resuscitation efforts. She also states that if she is unable to come off the ventilator in 2 weeks time she would not want a feeding tube and tracheostomy for long-term mechanical ventilation. Patient's daughter was at bedside and in agreement with patient's wishes Critical Care Time Spent: 33 minutes 01/31: Discussed with patient's daughter Tiffany, who is the POA given the patient is requiring more oxygen and is on Vapotherm, she stated she would want patient to be intubated if oxygen requirements increase or patient requires is in respiratory failure. Due to a high probability of clinically significant, life threatening deteri oration, the patient required my highest level of preparedness to intervene emergently and I personally spent this critical care time directly and personally managing the patient. This critical care time included obtaining a history; examining the patient; pulse oximetry; ordering and review of studies; arranging urgent treatment with development of a management plan; evaluation of patient's response to treatment; frequent reassessment; and discussions with other providers. It was exclusive of separately billable procedures and treating other patients and teaching time. Please see Assessment and Plan section and the rest of the note for further information on patient assessment and treatment This dictation may have been done utilizing a voice recognition system. Attempts have been made to correct errors. However, there may be uncorrected grammatical, spelling, and recognitions errors present. Subjective Date/time seen: 02/01/24 11:43 Interval history: 68yo female with HTN, CHF, DM and HLD with PE pneumonia acute respiratory failure ARDS acute kidney injury 01/29: Venous Dopplers: Small amount of nonocclusive deep venous thrombosis at the right common femoral vein reported site of a recently removed central venous catheter. No other deep venous thrombosis in the remainder of the bilateral lower limbs. 01/30: Extubated 02/01/2024: Patient seen and examined the ICU, was extubated yesterday, required increased amount of oxygen overnight and was placed on high-flow therapy 60% FiO2, 60 L flow rate. Patient is awake, denies any shortness of breath, is very wiggly, and keeps removing her nasal cannula. Patient states she is not having any chest pain, abdominal pain, nausea vomiting. She wants to go home. Remains on Precedex. Patient had good urine output in response to diuresis yesterday with 2054 mL in negative fluid balance. Has been afebrile through the night Review of Systems Review of Systems: All systems reviewed & are unremarkable except as noted in HPI and below Exam Narrative: General: Patient is awake, confused, in no acute distress HEENT:? Pupils equal and reactive, sclerae is clear, high-flow therapy cannula Neck:? Supple Respiratory:? Coarse breath sounds bilaterally, decreased at bases, no wheezing Cardiac:? S1-S2 was normal, regular rate and rhythm Abdomen:? Soft, non distended, no tenderness, hypoactive bowel sounds, Extremities:? No edema, palpable pedal pulses Neuro:? Patient is awake, alert,, oriented x2, pleasantly confused, follows simple commands in all extremities, answers questions Skin:? Warm and dry Objective Data Vital Signs Vital Signs: Vital Signs - 24 hr 01/31/24 12:36 01/31/24 13:05 01/31/24 13:05 Temperature Pulse Rate 75 75 75 Respiratory Rate 20 22 H Blood Pressure Pulse Oximetry 96 Oxygen Delivery Mechanical Ventilation Oxygen Flow Rate Fraction of Inspired Oxygen 35 01/31/24 13:14 01/31/24 12:00 01/31/24 12:00 Temperature 99.4 F Pulse Rate 80 78 Respiratory Rate 17 19 Blood Pressure 156/70 H Pulse Oximetry 96 Oxygen Delivery Oxygen Flow Rate Fraction of Inspired Oxygen 35 01/31/24 13:46 01/31/24 14:25 01/31/24 14:00 Temperature 99.8 F H Pulse Rate 86 70 78 Respiratory Rate 15 14 14 Blood Pressure 154/74 H Pulse Oximetry 96 Oxygen Delivery Oxygen Flow Rate Fraction of Inspired Oxygen 01/31/24 12:00 01/31/24 14:21 01/31/24 12:00 Temperature Pulse Rate 71 80 Respiratory Rate 13 Blood Pressure Pulse Oximetry 96 93 Oxygen Delivery Mechanical Ventilation High Flow Nasal Cannula Oxygen Flow Rate 8 Fraction of Inspired Oxygen 35 01/31/24 14:00 01/31/24 12:49 01/31/24 14:20 Temperature Pulse Rate 75 70 Respiratory Rate Blood Pressure Pulse Oximetry 93 Oxygen Delivery Oxygen Flow Rate Fraction of Inspired Oxygen 35 01/31/24 16:00 01/31/24 16:00 01/31/24 16:00 Temperature 99.5 F Pulse Rate 68 72 Respiratory Rate 12 Blood Pressure 158/64 H Pulse Oximetry 94 92 Oxygen Delivery High Flow Nasal Cannula Oxygen Flow Rate 8 Fraction of Inspired Oxygen 01/31/24 16:00 01/31/24 18:00 01/31/24 18:00 Temperature 99.7 F H Pulse Rate 69 72 72 Respiratory Rate 13 13 Blood Pressure 167/65 H Pulse Oximetry 93 Oxygen Delivery Oxygen Flow Rate Fraction of Inspired Oxygen 01/31/24 17:00 01/31/24 18:00 01/31/24 20:22 Temperature Pulse Rate 70 63 66 Respiratory Rate 12 12 18 Blood Pressure Pulse Oximetry 93 Oxygen Delivery High Flow Nasal Cannula Oxygen Flow Rate 8 Fraction of Inspired Oxygen 01/31/24 20:22 01/31/24 20:34 01/31/24 20:00 Temperature Pulse Rate 66 69 73 Respiratory Rate 18 13 17 Blood Pressure Pulse Oximetry 90 Oxygen Delivery High Flow Nasal Cannula Oxygen Flow Rate 8 Fraction of Inspired Oxygen 01/31/24 21:18 01/31/24 20:00 01/31/24 20:00 Temperature 99.4 F Pulse Rate 72 74 73 Respiratory Rate 17 17 Blood Pressure 173/108 H Pulse Oximetry 92 90 Oxygen Delivery High Flow Nasal Cannula Oxygen Flow Rate 12 Fraction of Inspired Oxygen 01/31/24 21:00 01/31/24 22:45 02/01/24 00:22 Temperature Pulse Rate 74 Respiratory Rate 15 Blood Pressure 129/74 Pulse Oximetry 96 Oxygen Delivery High Flow Therapy with Fa Oxygen Flow Rate 60 Fraction of Inspired Oxygen 62 01/31/24 22:00 01/31/24 22:00 01/31/24 23:00 Temperature 97.9 F Pulse Rate 78 78 78 Respiratory Rate 17 16 Blood Pressure 183/71 H Pulse Oximetry 89 L 92 Oxygen Delivery High Flow Therapy with Na Oxygen Flow Rate 60 Fraction of Inspired Oxygen 61 02/01/24 00:00 02/01/24 00:00 02/01/24 00:00 Temperature 98.8 F Pulse Rate 79 81 81 Respiratory Rate 16 16 Blood Pressure 186/85 H Pulse Oximetry 95 95 Oxygen Delivery High Flow Therapy with Na Oxygen Flow Rate 60 Fraction of Inspired Oxygen 61 02/01/24 02:00 02/01/24 02:00 02/01/24 00:22 Temperature 99.5 F Pulse Rate 70 70 74 Respiratory Rate 15 15 Blood Pressure 172/52 H Pulse Oximetry 96 Oxygen Delivery Oxygen Flow Rate Fraction of Inspired Oxygen 02/01/24 00:45 02/01/24 01:00 02/01/24 01:15 Temperature Pulse Rate 74 75 75 Respiratory Rate 17 16 15 Blood Pressure Pulse Oximetry Oxygen Delivery Oxygen Flow Rate Fraction of Inspired Oxygen 02/01/24 01:30 02/01/24 01:45 02/01/24 02:00 Temperature Pulse Rate 76 72 71 Respiratory Rate 16 15 17 Blood Pressure Pulse Oximetry Oxygen Delivery Oxygen Flow Rate Fraction of Inspired Oxygen 02/01/24 02:15 02/01/24 00:01 02/01/24 00:04 Temperature Pulse Rate 73 81 74 Respiratory Rate 20 19 16 Blood Pressure 186/85 H Pulse Oximetry 95 98 Oxygen Delivery Oxygen Flow Rate Fraction of Inspired Oxygen 02/01/24 00:15 02/01/24 00:47 02/01/24 02:41 Temperature 99.5 F Pulse Rate 75 75 73 Respiratory Rate 13 17 13 Blood Pressure Pulse Oximetry 98 95 93 Oxygen Delivery High Flow Therapy with Na Oxygen Flow Rate 60 Fraction of Inspired Oxygen 65 02/01/24 02:41 02/01/24 02:50 02/01/24 01:00 Temperature 99.5 F Pulse Rate 73 67 73 Respiratory Rate 13 16 17 Blood Pressure 162/95 H Pulse Oximetry 93 Oxygen Delivery Oxygen Flow Rate Fraction of Inspired Oxygen 02/01/24 02:00 02/01/24 03:00 02/01/24 02:30 Temperature 99.5 F 99.4 F Pulse Rate 73 73 72 Respiratory Rate 16 16 17 Blood Pressure 172/52 H 158/81 H Pulse Oximetry 93 94 Oxygen Delivery Oxygen Flow Rate Fraction of Inspired Oxygen 02/01/24 02:45 02/01/24 03:00 02/01/24 03:15 Temperature Pulse Rate 73 74 70 Respiratory Rate 17 19 16 Blood Pressure Pulse Oximetry Oxygen Delivery Oxygen Flow Rate Fraction of Inspired Oxygen 02/01/24 03:30 02/01/24 03:45 02/01/24 04:00 Temperature Pulse Rate 68 68 63 Respiratory Rate 15 14 16 Blood Pressure Pulse Oximetry Oxygen Delivery Oxygen Flow Rate Fraction of Inspired Oxygen 02/01/24 05:16 02/01/24 04:00 02/01/24 04:00 Temperature Pulse Rate 65 66 67 Respiratory Rate 13 17 Blood Pressure Pulse Oximetry 92 93 Oxygen Delivery High Flow Therapy with Na High Flow Therapy with Na Oxygen Flow Rate 60 60 Fraction of Inspired Oxygen 65 69 02/01/24 04:00 02/01/24 04:20 02/01/24 04:30 Temperature 99.4 F 99.4 F 99.4 F Pulse Rate 66 69 69 Respiratory Rate 17 19 13 Blood Pressure 134/69 Pulse Oximetry 93 96 93 Oxygen Delivery Oxygen Flow Rate Fraction of Inspired Oxygen 02/01/24 04:31 02/01/24 04:45 02/01/24 04:46 Temperature 99.2 F 98.2 F 98.3 F Pulse Rate 70 71 70 Respiratory Rate 17 11 L 15 Blood Pressure 146/51 H 149/70 H Pulse Oximetry 94 96 92 Oxygen Delivery Oxygen Flow Rate Fraction of Inspired Oxygen 02/01/24 05:00 02/01/24 05:01 02/01/24 05:15 Temperature 99.2 F 99.2 F 99.1 F Pulse Rate 66 65 67 Respiratory Rate 13 19 18 Blood Pressure 151/69 H 155/110 H Pulse Oximetry 97 95 96 Oxygen Delivery Oxygen Flow Rate Fraction of Inspired Oxygen 02/01/24 05:16 02/01/24 05:30 02/01/24 05:31 Temperature 99.0 F 99.2 F 99.3 F Pulse Rate 67 66 70 Respiratory Rate 21 H 20 14 Blood Pressure 159/73 H Pulse Oximetry 95 93 95 Oxygen Delivery Oxygen Flow Rate Fraction of Inspired Oxygen 02/01/24 05:45 02/01/24 05:46 02/01/24 06:00 Temperature 99.2 F 99.2 F Pulse Rate 71 70 63 Respiratory Rate 17 16 Blood Pressure 151/62 H Pulse Oximetry 89 L 93 Oxygen Delivery Oxygen Flow Rate Fraction of Inspired Oxygen 02/01/24 06:00 02/01/24 05:00 02/01/24 06:00 Temperature 99.3 F Pulse Rate 60 65 63 Respiratory Rate 15 14 15 Blood Pressure 140/42 L Pulse Oximetry 94 Oxygen Delivery Oxygen Flow Rate Fraction of Inspired Oxygen 02/01/24 07:00 02/01/24 05:47 02/01/24 06:00 Temperature 99.2 F 99.3 F Pulse Rate 66 68 61 Respiratory Rate 17 17 13 Blood Pressure Pulse Oximetry 93 96 Oxygen Delivery Oxygen Flow Rate Fraction of Inspired Oxygen 02/01/24 06:01 02/01/24 06:15 02/01/24 06:16 Temperature 99.3 F 99.3 F 99.2 F Pulse Rate 65 63 67 Respiratory Rate 18 14 16 Blood Pressure 140/42 L 150/58 H Pulse Oximetry 95 94 95 Oxygen Delivery Oxygen Flow Rate Fraction of Inspired Oxygen 02/01/24 06:31 02/01/24 06:35 02/01/24 06:45 Temperature 99.3 F 99.1 F 99.3 F Pulse Rate 63 63 59 L Respiratory Rate 16 14 19 Blood Pressure 151/63 H Pulse Oximetry 96 94 97 Oxygen Delivery Oxygen Flow Rate Fraction of Inspired Oxygen 02/01/24 06:46 02/01/24 07:02 02/01/24 07:20 Temperature 99.3 F 99.3 F 99.3 F Pulse Rate 60 67 63 Respiratory Rate 20 16 17 Blood Pressure 148/61 H Pulse Oximetry 97 97 95 Oxygen Delivery Oxygen Flow Rate Fraction of Inspired Oxygen 02/01/24 07:30 02/01/24 07:31 02/01/24 08:14 Temperature 99.3 F 99.2 F Pulse Rate 62 62 63 Respiratory Rate 17 16 13 Blood Pressure 140/65 Pulse Oximetry 96 97 Oxygen Delivery Oxygen Flow Rate Fraction of Inspired Oxygen 02/01/24 08:18 02/01/24 08:25 02/01/24 08:16 Temperature Pulse Rate 62 68 Respiratory Rate 18 19 Blood Pressure Pulse Oximetry 93 Oxygen Delivery High Flow Therapy with Na Oxygen Flow Rate 60 Fraction of Inspired Oxygen 65 02/01/24 08:00 02/01/24 08:00 02/01/24 10:00 Temperature 99.0 F 98.3 F Pulse Rate 66 61 Respiratory Rate 17 16 Blood Pressure 154/73 H 137/55 L Pulse Oximetry 96 96 93 Oxygen Delivery High Flow Therapy with Na Oxygen Flow Rate 60 Fraction of Inspired Oxygen 69 02/01/24 08:00 02/01/24 10:00 02/01/24 10:00 Temperature Pulse Rate 65 61 61 Respiratory Rate 16 Blood Pressure Pulse Oximetry Oxygen Delivery Oxygen Flow Rate Fraction of Inspired Oxygen 02/01/24 10:52 02/01/24 10:52 Temperature Pulse Rate 56 L 56 L Respiratory Rate 19 19 Blood Pressure Pulse Oximetry Oxygen Delivery Oxygen Flow Rate Fraction of Inspired Oxygen Intake/Output Intake/Output: Intake & Output 01/29/24 01/30/24 01/31/24 02/01/24 23:59 23:59 23:59 23:59 Intake Total 1565.7 2075.9 1595.9 492.0 Output Total 3000 3675 3650 1000 Balance -1434.3 -1599.1 -2054.1 -508.0 Meds/Results Medications: Active Medications Generic Name Dose Route Start Last Admin Trade Name Freq PRN Reason Stop Dose Admin Acetaminophen 650 mg 01/20/24 10:08 01/30/24 18:09 Acetaminophen 325 Mg Tablet PO 650 mg Q4H PRN Administration Mild Pain (1-3) or Fever Acetylcysteine 200 mg 01/28/24 14:00 02/01/24 08:13 Acetylcysteine 20% Inhal Soln 800 Mg/4 Ml Vial INHALATION 200 mg Q6HRT EDMOND Administration Albuterol/Ipratropium 3 ml 01/22/24 14:00 02/01/24 08:14 Ipratropium 0.5 Mg/Albuterol Sulfate 2.5 Mg Ampul.Neb 3 Ml INHALATION 3 ml Q6HRT EDMOND Administration Alprazolam 0.125 mg 02/01/24 11:00 02/01/24 11:13 Alprazolam (*Crx) 0.125 Mg Tablet PO 02/03/24 10:59 0.125 mg Q8H PRN Administration Anxiety Aspirin 81 mg 01/19/24 08:00 02/01/24 10:56 Aspirin 81 Mg Chewable Tablet PO 81 mg DAILY@0800 EDMOND Administration Atorvastatin Calcium 40 mg 01/19/24 09:00 02/01/24 10:56 Atorvastatin 40 Mg Tablet PO 40 mg DAILY EDMOND Administration Clopidogrel Bisulfate 75 mg 01/19/24 09:00 02/01/24 10:56 Clopidogrel Bisulfate 75 Mg Tablet PO 75 mg DAILY EDMOND Administration Dextrose 12.5 gm 01/18/24 23:28 Dextrose 50% 25 Gm/50 Ml Syringe IV PUSH PRN PRN Hypoglycemia Protocol Epoetin Ronnell-epbx 10,000 units 01/31/24 13:30 01/31/24 14:25 Epoetin Ronnell-Epbx 10,000 Units/Ml Vial SUB-Q 10,000 units TUTHSA@09 [place] Administration Glucagon 1 mg 01/18/24 23:28 Glucagon For Inj 1 Mg Vial IM PRN PRN Hypoglycemia Protocol Glucose 15 gm 01/18/24 23:28 Glucose Oral Gel 15 Gm Of Glucse In 37.5 Gm Tube PO PRN PRN Hypoglycemia Protocol Dextrose 1,000 mls @ 100 mls/hr 01/18/24 23:28 Dextrose 5% 1,000 Ml IVPB PRN PRN Hypoglycemia Protocol Albumin Human 50 mls @ 999 mls/hr 01/26/24 11:40 01/27/24 09:51 Albutein IVPB 02/25/24 11:39 999 mls/hr Q10M PRN Administration HYPOTENSION Ampicillin Sodium/Sulbactam Sodium 3 gm in 100 mls @ 200 mls/hr 01/31/24 15:00 02/01/24 09:37 Unasyn 3 Gm/Ns 100 Ml IVPB Infused Q6H [place] Infusion Dexmedetomidine HCl 400 mcg in 100 mls @ 11.58 mls/hr 01/31/24 23:45 02/01/24 10:52 Precedex 400 Mcg/100 Ml IV CONT 0.6 mcg/kg/hr .Q8H39M [place] 11.58 mls/hr Administration Protocol 0.6 MCG/KG/HR Vancomycin HCl 1,000 mg in 250 mls @ 250 mls/hr 02/01/24 10:00 02/01/24 11:13 Vancomycin 1,000 Mg/Ns 250 Ml IVPB 250 mls/hr Q24H [place] Administration Insulin Aspart 4 - 8 units 01/19/24 12:00 02/01/24 08:49 Insulin Aspart (*Bkc) 100 Units/Ml SUB-Q Not Given Q4H [facility] Protocol Insulin Glargine 75 units 02/01/24 09:00 Insulin Glargine (*Bkc) 100 Units/Ml SUB-Q QAM [facility] Levothyroxine Sodium 112 mcg 01/19/24 06:30 02/01/24 06:40 Levothyroxine Sodium 112 Mcg Tablet PO 112 mcg DAILY@0630 [facility] Administration Midazolam HCl 4 mg 01/21/24 09:35 01/30/24 16:56 Midazolam Hcl (*Crx) 2 Mg/2 Ml Vial IV PUSH 4 mg PRN PRN Administration Sedation Multi-Ingred Cream/Lotion/Oil/Oint 1 applic 01/21/24 09:00 02/01/24 09:08 Mineral Oil/White Petrolatum Ointment EACH EYE Not Given Q12HR [facility] Ondansetron HCl 4 mg 01/18/24 22:13 Ondansetron Inj 4 Mg/2 Ml Vial IV PUSH Q4H PRN Nausea Pantoprazole Sodium 40 mg 01/19/24 09:00 02/01/24 09:07 Pantoprazole Sodium Iv 40 Mg Vial IV PUSH 40 mg Q12HR [place] Administration Polyethylene Glycol 17 gm 01/29/24 10:19 Polyethylene Glycol 3350 17 Gm Powd.Pack PO QAM PRN Constipation Radiology Results: ITS Impressions Chest/Abdomen/Pelvis CTA 01/18/24 18:30 IMPRESSION: Nonocclusive acute subsegmental pulmonary embolus in the left lower lobe. Very small clot burden. No evidence of right heart strain. Left lower lobe pneumonia. Mild hepatomegaly. Possible cystitis. Otherwise, no acute abdominopelvic process detected. Chest/Abdomen/Pelvis CT 01/22/24 12:43 IMPRESSION: Worsening respiratory status with bibasilar consolidation and interstitial thickening with patchy groundglass opacification bilaterally -findings suggesting ARDS. Mural thickening within the rectosigmoid colon with multiple diverticula and prominence of the vasa recta, possibly early diverticulitis. Interval development of perihepatic fluid, compared with previous study. Renal Ultrasound 01/24/24 12:05 IMPRESSION: 1. Normal kidneys without hydronephrosis. Abdomen X-Ray 01/25/24 14:53 IMPRESSION: NG tube in distal stomach Nonspecific abdomen Venous Doppler Study 01/30/24 14:52 IMPRESSION: 1. Small amount of nonocclusive deep venous thrombosis at the right common femoral vein reported site of a recently removed central venous catheter. No other deep venous thrombosis in the remainder of the bilateral lower limbs. Head CT 01/31/24 08:55 IMPRESSION: Cerebral atherosclerosis and chronic small vessel ischemic changes of the cerebral white matter No acute intracranial finding Moderate mucoperiosteal thickening of the left sphenoid sinus and partial opacification of mastoid air cells bilaterally Chest X-Ray 02/01/24 05:59 IMPRESSION: 1. Stable diffuse lung disease, consistent with pneumonia. 2. Emphysema. 3. Cardiomegaly. Labs Labs: Laboratory Results - last 24 hr 01/31/24 01/31/24 01/31/24 12:36 14:03 16:11 Puncture Site Right brachial ABG pH 7.538 H* ABG pCO2 30.6 L ABG pO2 70.1 L ABG PO2/FiO2 Ratio 2.00 ABG HCO3 25.5 ABG O2 Saturation 95.9 ABG O2 Content 13.1 L ABG Base Excess 3.2 A-a Gradient 143.9 Oxyhemoglobin 94.3 Carboxyhemoglobin 0.3 Methemoglobin 0.1 Reduced Hemoglobin 5.3 H Total Hemoglobin 9.8 L O2 Delivery Device Ventilator O2 Liters/Min Not Reportable Minute Volume Not Reportable Vent Rate Not Reportable Vent Mode Spontaneous FiO2 35 Tidal Volume Not Reportable PEEP 5 Peak Inspir Pressure Not Reportable Pressure Support 8 Sodium Potassium Chloride Carbon Dioxide Anion Gap BUN Creatinine Estim Creat Clear Calc Estimated GFR Glucose POC Capillary Glucose 230 H 112 H Calcium Phosphorus Magnesium Total Bilirubin AST ALT Alkaline Phosphatase Total Protein Albumin Random Vancomycin 01/31/24 02/01/24 02/01/24 19:55 00:04 03:42 Puncture Site ABG pH ABG pCO2 ABG pO2 ABG PO2/FiO2 Ratio ABG HCO3 ABG O2 Saturation ABG O2 Content ABG Base Excess A-a Gradient Oxyhemoglobin Carboxyhemoglobin Methemoglobin Reduced Hemoglobin Total Hemoglobin O2 Delivery Device O2 Liters/Min Minute Volume Vent Rate Vent Mode FiO2 Tidal Volume PEEP Peak Inspir Pressure Pressure Support Sodium Potassium Chloride Carbon Dioxide Anion Gap BUN Creatinine Estim Creat Clear Calc Estimated GFR Glucose POC Capillary Glucose 117 H 117 H 105 Calcium Phosphorus Magnesium Total Bilirubin AST ALT Alkaline Phosphatase Total Protein Albumin Random Vancomycin 02/01/24 02/01/24 02/01/24 05:01 05:18 08:22 Puncture Site Right radial ABG pH 7.546 H* ABG pCO2 32.2 L ABG pO2 61.9 L ABG PO2/FiO2 Ratio 0.94 ABG HCO3 27.3 H ABG O2 Saturation 94.5 L ABG O2 Content 13.8 L ABG Base Excess 5.0 A-a Gradient 373.7 Oxyhemoglobin 91.6 Carboxyhemoglobin 0.7 Methemoglobin 0.0 Reduced Hemoglobin 7.7 H Total Hemoglobin 10.7 L O2 Delivery Device High flow therapy O2 Liters/Min 60.0 Minute Volume Vent Rate Vent Mode FiO2 66 Tidal Volume PEEP Peak Inspir Pressure Pressure Support Sodium 143 Potassium 2.8 L* Chloride 101 Carbon Dioxide 33 H Anion Gap 9 BUN 47 H D Creatinine 1.30 H Estim Creat Clear Calc 33 Estimated GFR 40 L Glucose 112 H POC Capillary Glucose 111 H Calcium 8.9 Phosphorus 5.1 H Magnesium 1.6 Total Bilirubin 1.7 H AST 94 H ALT 55 H Alkaline Phosphatase 116 Total Protein 8.0 Albumin 3.9 Random Vancomycin 22.4 H
[2024-02-01 12:50] LABS: Glucose Point of Care 138 mg/dl (65-105)
[2024-02-01 13:26] LABS: Basophils Absolute Auto 0.1 K/mm3 (0.0-0.1); Basophils Percent Auto 0.4 % (0.2-1.2); Eosinophils Absolute Auto 0.3 K/mm3 (0-0.3); Hematocrit 28.3 % (37.0-47.0); Hemoglobin 9.1 g/dL (12.0-15.0); Immature Granulocyte Absolute 0.15 K/mm3 (0.00-0.031); Immature Granulocyte Percent A 1.1 % (0-0.5); Lymphocytes Percent Auto 11.7 % (18.3-44.2); Mean Corpuscular HGB Conc 32.2 g/dl (32-36); Mean Corpuscular Hemoglobin 31.2 pg (26-34); Mean Corpuscular Volume 96.9 fl (80-100); Mean Platelet Volume 10.7 fl (7.4-10.4); Monocytes Absolute Auto 0.9 K/mm3 (0.1-0.6); Monocytes Percent Auto 6.2 % (2.6-8.5); Neutrophils Absolute Auto 10.8 K/mm3 (1.3-6.7); Neutrophils Percent Auto 78.6 % (45.5-73.1); Nucleated Red Blood Cells Perc 0.1 % (0.0-0.2); Platelet Count Result 322 k/mm3 (150-375); Red Blood Count 2.92 M/mm3 (4.2-5.4); Red Cell Distribution Width 14.7 % (11.5-14.5); White Blood Count 13.7 K/mm3 (4.5-10.0)
[2024-02-01 13:38] LABS: Alanine Aminotransferase 56 U/L (6-35); Albumin Level 3.6 g/dL (3.5-5.1); Alkaline Phosphatase 108 U/L (38-126); Anion Gap 4 mmol/L (4-12); Aspartate Amino Transferase 83 U/L (14-36); Bilirubin,Total 1.5 mg/dL (0.2-1.3); Blood Urea Nitrogen 42 mg/dL (7-17); Calcium 8.3 mg/dL (8.4-10.2); Carbon Dioxide 32 mmol/L (22-30); Chloride 103 mmol/L (98-107); Estimated CRCL calculation 42 ml/min; Estimated Glomerular Filt Rate 55; Glucose 141 mg/dL (65-110); Potassium 3.8 mmol/L (3.4-5.0); Sodium 139 mmol/L (137-145)
[2024-02-01] MEDS: ACETAMINOPHEN 325 MG TABLET 650 MG PO ×2 (13:59→20:08)
[2024-02-01 15:33] LABS: Glucose Point of Care 126 mg/dl (65-105)
--- NOTE | 2024-02-01 18:25 | P.PN_ITS ---
Progress Note: A&P Assessment and Plan (1) GI bleeding: Code(s): K92.2 - Gastrointestinal hemorrhage, unspecified Status: Acute Assessment and Plan: Patient has had recent GI bleeding. This started after being anticoagulated for her pulmonary embolus and right lower extremity DVT. Admission has been held. Plan is to place the IVC filter. (2) Dvt femoral (deep venous thrombosis): Code(s): I82.419 - Acute embolism and thrombosis of unspecified femoral vein Status: Acute Assessment and Plan: Nonocclusive thrombus in the right femoral vein. Plan to proceed with placement of IVC filter tomorrow. Patient's daughter who is the POA agrees to proceed. (3) Pulmonary embolism: Code(s): I26.99 - Other pulmonary embolism without acute cor pulmonale Status: Acute Subjective Date/time seen: 02/01/24 18:25 Interval history: Patient has tolerated extubation. She is awake and answers questions. She is on a soft small bite diet. She remains in the intensive care unit bed rest. Exam GI: GI Palp: Yes Soft to palpation, No Firmness to palpation present (GI), No Tenderness to palpation present (GI), No Guarding due to palpation present (GI) and No Hernia present Skin: Other: Bilateral groin creases are clean without evidence of fungal rash or cellulitis. Good palpable 2+ femoral pulses. Objective Data Vital Signs Vital Signs: Vital Signs - 24 hr 01/31/24 20:22 01/31/24 20:22 01/31/24 20:34 Temperature Pulse Rate 66 66 69 Respiratory Rate 18 18 13 Blood Pressure Pulse Oximetry 93 Oxygen Delivery High Flow Nasal Cannula Oxygen Flow Rate 8 Fraction of Inspired Oxygen 01/31/24 20:00 01/31/24 21:18 01/31/24 20:00 Temperature Pulse Rate 73 72 74 Respiratory Rate 17 17 Blood Pressure Pulse Oximetry 90 92 Oxygen Delivery High Flow Nasal Cannula High Flow Nasal Cannula Oxygen Flow Rate 8 12 Fraction of Inspired Oxygen 01/31/24 20:00 01/31/24 21:00 01/31/24 22:45 Temperature 37.4 C Pulse Rate 73 Respiratory Rate 17 Blood Pressure 173/108 H 129/74 Pulse Oximetry 90 96 Oxygen Delivery High Flow Therapy with Fa Oxygen Flow Rate 60 Fraction of Inspired Oxygen 62 02/01/24 00:22 01/31/24 22:00 01/31/24 22:00 Temperature 36.6 C Pulse Rate 74 78 78 Respiratory Rate 15 17 Blood Pressure 183/71 H Pulse Oximetry 89 L Oxygen Delivery Oxygen Flow Rate Fraction of Inspired Oxygen 01/31/24 23:00 02/01/24 00:00 02/01/24 00:00 Temperature Pulse Rate 78 79 81 Respiratory Rate 16 16 Blood Pressure Pulse Oximetry 92 95 Oxygen Delivery High Flow Therapy with Na High Flow Therapy with Na Oxygen Flow Rate 60 60 Fraction of Inspired Oxygen 61 61 02/01/24 00:00 02/01/24 02:00 02/01/24 02:00 Temperature 37.1 C 37.5 C Pulse Rate 81 70 70 Respiratory Rate 16 15 Blood Pressure 186/85 H 172/52 H Pulse Oximetry 95 96 Oxygen Delivery Oxygen Flow Rate Fraction of Inspired Oxygen 02/01/24 00:22 02/01/24 00:45 02/01/24 01:00 Temperature Pulse Rate 74 74 75 Respiratory Rate 15 17 16 Blood Pressure Pulse Oximetry Oxygen Delivery Oxygen Flow Rate Fraction of Inspired Oxygen 02/01/24 01:15 02/01/24 01:30 02/01/24 01:45 Temperature Pulse Rate 75 76 72 Respiratory Rate 15 16 15 Blood Pressure Pulse Oximetry Oxygen Delivery Oxygen Flow Rate Fraction of Inspired Oxygen 02/01/24 02:00 02/01/24 02:15 02/01/24 00:01 Temperature Pulse Rate 71 73 81 Respiratory Rate 17 20 19 Blood Pressure 186/85 H Pulse Oximetry 95 Oxygen Delivery Oxygen Flow Rate Fraction of Inspired Oxygen 02/01/24 00:04 02/01/24 00:15 02/01/24 00:47 Temperature 37.5 C Pulse Rate 74 75 75 Respiratory Rate 16 13 17 Blood Pressure Pulse Oximetry 98 98 95 Oxygen Delivery Oxygen Flow Rate Fraction of Inspired Oxygen 02/01/24 02:41 02/01/24 02:41 02/01/24 02:50 Temperature Pulse Rate 73 73 67 Respiratory Rate 13 13 16 Blood Pressure Pulse Oximetry 93 Oxygen Delivery High Flow Therapy with Na Oxygen Flow Rate 60 Fraction of Inspired Oxygen 65 02/01/24 01:00 02/01/24 02:00 02/01/24 03:00 Temperature 37.5 C 37.5 C 37.4 C Pulse Rate 73 73 73 Respiratory Rate 17 16 16 Blood Pressure 162/95 H 172/52 H 158/81 H Pulse Oximetry 93 93 94 Oxygen Delivery Oxygen Flow Rate Fraction of Inspired Oxygen 02/01/24 02:30 02/01/24 02:45 02/01/24 03:00 Temperature Pulse Rate 72 73 74 Respiratory Rate 17 17 19 Blood Pressure Pulse Oximetry Oxygen Delivery Oxygen Flow Rate Fraction of Inspired Oxygen 02/01/24 03:15 02/01/24 03:30 02/01/24 03:45 Temperature Pulse Rate 70 68 68 Respiratory Rate 16 15 14 Blood Pressure Pulse Oximetry Oxygen Delivery Oxygen Flow Rate Fraction of Inspired Oxygen 02/01/24 04:00 02/01/24 05:16 02/01/24 04:00 Temperature Pulse Rate 63 65 66 Respiratory Rate 16 13 17 Blood Pressure Pulse Oximetry 92 93 Oxygen Delivery High Flow Therapy with Na High Flow Therapy with Na Oxygen Flow Rate 60 60 Fraction of Inspired Oxygen 65 69 02/01/24 04:00 02/01/24 04:00 02/01/24 04:20 Temperature 37.4 C 37.4 C Pulse Rate 67 66 69 Respiratory Rate 17 19 Blood Pressure 134/69 Pulse Oximetry 93 96 Oxygen Delivery Oxygen Flow Rate Fraction of Inspired Oxygen 02/01/24 04:30 02/01/24 04:31 02/01/24 04:45 Temperature 37.4 C 37.3 C 36.8 C Pulse Rate 69 70 71 Respiratory Rate 13 17 11 L Blood Pressure 146/51 H Pulse Oximetry 93 94 96 Oxygen Delivery Oxygen Flow Rate Fraction of Inspired Oxygen 02/01/24 04:46 02/01/24 05:00 02/01/24 05:01 Temperature 36.8 C 37.3 C 37.3 C Pulse Rate 70 66 65 Respiratory Rate 15 13 19 Blood Pressure 149/70 H 151/69 H Pulse Oximetry 92 97 95 Oxygen Delivery Oxygen Flow Rate Fraction of Inspired Oxygen 02/01/24 05:15 02/01/24 05:16 02/01/24 05:30 Temperature 37.3 C 37.2 C 37.3 C Pulse Rate 67 67 66 Respiratory Rate 18 21 H 20 Blood Pressure 155/110 H Pulse Oximetry 96 95 93 Oxygen Delivery Oxygen Flow Rate Fraction of Inspired Oxygen 02/01/24 05:31 02/01/24 05:45 02/01/24 05:46 Temperature 37.4 C 37.3 C 37.3 C Pulse Rate 70 71 70 Respiratory Rate 14 17 16 Blood Pressure 159/73 H 151/62 H Pulse Oximetry 95 89 L 93 Oxygen Delivery Oxygen Flow Rate Fraction of Inspired Oxygen 02/01/24 06:00 02/01/24 06:00 02/01/24 05:00 Temperature 37.4 C Pulse Rate 63 60 65 Respiratory Rate 15 14 Blood Pressure 140/42 L Pulse Oximetry 94 Oxygen Delivery Oxygen Flow Rate Fraction of Inspired Oxygen 02/01/24 06:00 02/01/24 07:00 02/01/24 05:47 Temperature 37.3 C Pulse Rate 63 66 68 Respiratory Rate 15 17 17 Blood Pressure Pulse Oximetry 93 Oxygen Delivery Oxygen Flow Rate Fraction of Inspired Oxygen 02/01/24 06:00 02/01/24 06:01 02/01/24 06:15 Temperature 37.4 C 37.4 C 37.4 C Pulse Rate 61 65 63 Respiratory Rate 13 18 14 Blood Pressure 140/42 L Pulse Oximetry 96 95 94 Oxygen Delivery Oxygen Flow Rate Fraction of Inspired Oxygen 02/01/24 06:16 02/01/24 06:31 02/01/24 06:35 Temperature 37.3 C 37.4 C 37.3 C Pulse Rate 67 63 63 Respiratory Rate 16 16 14 Blood Pressure 150/58 H 151/63 H Pulse Oximetry 95 96 94 Oxygen Delivery Oxygen Flow Rate Fraction of Inspired Oxygen 02/01/24 06:45 02/01/24 06:46 02/01/24 07:02 Temperature 37.4 C 37.4 C 37.4 C Pulse Rate 59 L 60 67 Respiratory Rate 19 20 16 Blood Pressure 148/61 H Pulse Oximetry 97 97 97 Oxygen Delivery Oxygen Flow Rate Fraction of Inspired Oxygen 02/01/24 07:20 02/01/24 07:30 02/01/24 07:31 Temperature 37.4 C 37.4 C 37.3 C Pulse Rate 63 62 62 Respiratory Rate 17 17 16 Blood Pressure 140/65 Pulse Oximetry 95 96 97 Oxygen Delivery Oxygen Flow Rate Fraction of Inspired Oxygen 02/01/24 08:14 02/01/24 08:18 02/01/24 08:25 Temperature Pulse Rate 63 62 Respiratory Rate 13 18 Blood Pressure Pulse Oximetry 93 Oxygen Delivery High Flow Therapy with Na Oxygen Flow Rate 60 Fraction of Inspired Oxygen 65 02/01/24 08:16 02/01/24 08:00 02/01/24 08:00 Temperature 37.2 C Pulse Rate 68 66 Respiratory Rate 19 17 Blood Pressure 154/73 H Pulse Oximetry 96 96 Oxygen Delivery High Flow Therapy with Na Oxygen Flow Rate 60 Fraction of Inspired Oxygen 69 02/01/24 10:00 02/01/24 08:00 02/01/24 10:00 Temperature 36.8 C Pulse Rate 61 65 61 Respiratory Rate 16 Blood Pressure 137/55 L Pulse Oximetry 93 Oxygen Delivery Oxygen Flow Rate Fraction of Inspired Oxygen 02/01/24 10:00 02/01/24 10:52 02/01/24 10:52 Temperature Pulse Rate 61 56 L 56 L Respiratory Rate 16 19 19 Blood Pressure Pulse Oximetry Oxygen Delivery Oxygen Flow Rate Fraction of Inspired Oxygen 02/01/24 12:00 02/01/24 12:00 02/01/24 12:00 Temperature 36.8 C Pulse Rate 61 61 62 Respiratory Rate 17 17 Blood Pressure 137/62 Pulse Oximetry 99 Oxygen Delivery Oxygen Flow Rate Fraction of Inspired Oxygen 02/01/24 12:00 02/01/24 14:00 02/01/24 14:00 Temperature Pulse Rate 63 63 Respiratory Rate 22 H Blood Pressure Pulse Oximetry 99 Oxygen Delivery High Flow Therapy with Na Oxygen Flow Rate 60 Fraction of Inspired Oxygen 65 02/01/24 14:00 02/01/24 14:09 02/01/24 14:12 Temperature 36.3 C L Pulse Rate 63 59 L Respiratory Rate 22 H 21 H Blood Pressure 136/63 Pulse Oximetry 90 95 Oxygen Delivery High Flow Therapy with Na Oxygen Flow Rate 60 Fraction of Inspired Oxygen 65 02/01/24 14:19 02/01/24 14:22 02/01/24 16:00 Temperature Pulse Rate 48 L 59 L 58 L Respiratory Rate 20 22 H 19 Blood Pressure Pulse Oximetry Oxygen Delivery Oxygen Flow Rate Fraction of Inspired Oxygen 02/01/24 16:00 02/01/24 16:00 02/01/24 16:00 Temperature 36.6 C Pulse Rate 56 L 58 L Respiratory Rate 19 Blood Pressure 135/59 L Pulse Oximetry 95 95 Oxygen Delivery High Flow Therapy with Na Oxygen Flow Rate 60 Fraction of Inspired Oxygen 65 02/01/24 17:05 02/01/24 17:08 02/01/24 18:00 Temperature Pulse Rate 54 L 56 L Respiratory Rate 20 17 Blood Pressure Pulse Oximetry 96 Oxygen Delivery High Flow Therapy with Na Oxygen Flow Rate 60 Fraction of Inspired Oxygen 50 02/01/24 18:00 02/01/24 18:00 Temperature 36.6 C Pulse Rate 56 L 56 L Respiratory Rate 17 Blood Pressure 124/91 H Pulse Oximetry 97 Oxygen Delivery Oxygen Flow Rate Fraction of Inspired Oxygen Intake/Output Intake/Output: Intake & Output 01/29/24 01/30/24 01/31/24 02/01/24 23:59 23:59 23:59 23:59 Intake Total 1565.7 2075.9 1595.9 1295.9 Output Total 3000 3675 3650 1550 Balance -1434.3 -1599.1 -2054.1 -254.1 Meds/Results Medications: Active Medications Generic Name Dose Route Start Last Admin Trade Name Freq PRN Reason Stop Dose Admin Acetaminophen 650 mg 01/20/24 10:08 02/01/24 13:59 Acetaminophen 325 Mg Tablet PO 650 mg Q4H PRN Administration Mild Pain (1-3) or Fever Acetylcysteine 200 mg 01/28/24 14:00 02/01/24 14:09 Acetylcysteine 20% Inhal Soln 800 Mg/4 Ml Vial INHALATION 200 mg Q6HRT [place] Administration Albuterol/Ipratropium 3 ml 01/22/24 14:00 02/01/24 14:09 Ipratropium 0.5 Mg/Albuterol Sulfate 2.5 Mg Ampul.Neb 3 Ml INHALATION 3 ml Q6HRT [place] Administration Alprazolam 0.125 mg 02/01/24 11:00 02/01/24 11:13 Alprazolam (*Crx) 0.125 Mg Tablet PO 02/03/24 10:59 0.125 mg Q8H PRN Administration Anxiety Aspirin 81 mg 01/19/24 08:00 02/01/24 10:56 Aspirin 81 Mg Chewable Tablet PO 81 mg DAILY@0800 [place] Administration Atorvastatin Calcium 40 mg 01/19/24 09:00 02/01/24 10:56 Atorvastatin 40 Mg Tablet PO 40 mg DAILY [place] Administration Clopidogrel Bisulfate 75 mg 01/19/24 09:00 02/01/24 10:56 Clopidogrel Bisulfate 75 Mg Tablet PO 75 mg DAILY [place] Administration Dextrose 12.5 gm 01/18/24 23:28 Dextrose 50% 25 Gm/50 Ml Syringe IV PUSH PRN PRN Hypoglycemia Protocol Epoetin Ronnell-epbx 10,000 units 01/31/24 13:30 01/31/24 14:25 Epoetin Ronnell-Epbx 10,000 Units/Ml Vial SUB-Q 10,000 units TUTHSA@09 [place] Administration Glucagon 1 mg 01/18/24 23:28 Glucagon For Inj 1 Mg Vial IM PRN PRN Hypoglycemia Protocol Glucose 15 gm 01/18/24 23:28 Glucose Oral Gel 15 Gm Of Glucse In 37.5 Gm Tube PO PRN PRN Hypoglycemia Protocol Dextrose 1,000 mls @ 100 mls/hr 01/18/24 23:28 Dextrose 5% 1,000 Ml IVPB PRN PRN Hypoglycemia Protocol Albumin Human 50 mls @ 999 mls/hr 01/26/24 11:40 01/27/24 09:51 Albutein IVPB 02/25/24 11:39 999 mls/hr Q10M PRN Administration HYPOTENSION Ampicillin Sodium/Sulbactam Sodium 3 gm in 100 mls @ 200 mls/hr 01/31/24 15:00 02/01/24 15:23 Unasyn 3 Gm/Ns 100 Ml IVPB 200 mls/hr Q6H [place] Administration Dexmedetomidine HCl 400 mcg in 100 mls @ 7.72 mls/hr 01/31/24 23:45 02/01/24 18:00 Precedex 400 Mcg/100 Ml IV CONT 0.4 mcg/kg/hr .[id number] [place] 7.72 mls/hr Titration Protocol 0.4 MCG/KG/HR Vancomycin HCl 1,000 mg in 250 mls @ 250 mls/hr 02/01/24 10:00 02/01/24 12:13 Vancomycin 1,000 Mg/Ns 250 Ml IVPB Infused Q24H [facility] Infusion Insulin Aspart 4 - 8 units 01/19/24 12:00 02/01/24 15:36 Insulin Aspart (*Bkc) 100 Units/Ml SUB-Q Not Given Q4H [facility] Protocol Insulin Glargine 75 units 02/01/24 09:00 Insulin Glargine (*Bkc) 100 Units/Ml SUB-Q QAM [facility] Levothyroxine Sodium 112 mcg 01/19/24 06:30 02/01/24 06:40 Levothyroxine Sodium 112 Mcg Tablet PO 112 mcg DAILY@0630 [facility] Administration Midazolam HCl 4 mg 01/21/24 09:35 01/30/24 16:56 Midazolam Hcl (*Crx) 2 Mg/2 Ml Vial IV PUSH 4 mg PRN PRN Administration Sedation Multi-Ingred Cream/Lotion/Oil/Oint 1 applic 01/21/24 09:00 02/01/24 09:08 Mineral Oil/White Petrolatum Ointment EACH EYE Not Given Q12HR [place] Ondansetron HCl 4 mg 01/18/24 22:13 Ondansetron Inj 4 Mg/2 Ml Vial IV PUSH Q4H PRN Nausea Pantoprazole Sodium 40 mg 01/19/24 09:00 02/01/24 09:07 Pantoprazole Sodium Iv 40 Mg Vial IV PUSH 40 mg Q12HR [place] Administration Polyethylene Glycol 17 gm 01/29/24 10:19 Polyethylene Glycol 3350 17 Gm Powd.Pack PO QAM PRN Constipation Radiology Results: ITS Impressions Chest/Abdomen/Pelvis CTA 01/18/24 18:30 IMPRESSION: Nonocclusive acute subsegmental pulmonary embolus in the left lower lobe. Very small clot burden. No evidence of right heart strain. Left lower lobe pneumonia. Mild hepatomegaly. Possible cystitis. Otherwise, no acute abdominopelvic process detected. Chest/Abdomen/Pelvis CT 01/22/24 12:43 IMPRESSION: Worsening respiratory status with bibasilar consolidation and interstitial thickening with patchy groundglass opacification bilaterally -findings suggesting ARDS. Mural thickening within the rectosigmoid colon with multiple diverticula and prominence of the vasa recta, possibly early diverticulitis. Interval development of perihepatic fluid, compared with previous study. Renal Ultrasound 01/24/24 12:05 IMPRESSION: 1. Normal kidneys without hydronephrosis. Abdomen X-Ray 01/25/24 14:53 IMPRESSION: NG tube in distal stomach Nonspecific abdomen Venous Doppler Study 01/30/24 14:52 IMPRESSION: 1. Small amount of nonocclusive deep venous thrombosis at the right common femoral vein reported site of a recently removed central venous catheter. No other deep venous thrombosis in the remainder of the bilateral lower limbs. Head CT 01/31/24 08:55 IMPRESSION: Cerebral atherosclerosis and chronic small vessel ischemic changes of the cerebral white matter No acute intracranial finding Moderate mucoperiosteal thickening of the left sphenoid sinus and partial opa cification of mastoid air cells bilaterally Chest X-Ray 02/01/24 05:59 IMPRESSION: 1. Stable diffuse lung disease, consistent with pneumonia. 2. Emphysema. 3. Cardiomegaly. Labs Labs: Laboratory Results - last 24 hr 01/31/24 02/01/24 02/01/24 19:55 00:04 03:42 WBC RBC Hgb Hct MCV MCH MCHC RDW Plt Count MPV Immature Gran % (Auto) Neut % (Auto) Lymph % (Auto) [place] % (Auto) Eos % (Auto) Baso % (Auto) Lymph # (Auto) [place] # (Auto) Eos # (Auto) Baso # (Auto) Abs Immat Gran (auto) Absolute Neuts (auto) Absolute Nucleated RBC Nucleated RBC % Puncture Site ABG pH ABG pCO2 ABG pO2 ABG PO2/FiO2 Ratio ABG HCO3 ABG O2 Saturation ABG O2 Content ABG Base Excess A-a Gradient Oxyhemoglobin Carboxyhemoglobin Methemoglobin Reduced Hemoglobin Total Hemoglobin O2 Delivery Device O2 Liters/Min FiO2 Sodium Potassium Chloride Carbon Dioxide Anion Gap BUN Creatinine Estim Creat Clear Calc Estimated GFR Glucose POC Capillary Glucose 117 H 117 H 105 Calcium Phosphorus Magnesium Total Bilirubin AST ALT Alkaline Phosphatase Total Protein Albumin Random Vancomycin 02/01/24 02/01/24 02/01/24 05:01 05:18 08:22 WBC RBC Hgb Hct MCV MCH MCHC RDW Plt Count MPV Immature Gran % (Auto) Neut % (Auto) Lymph % (Auto) [place] % (Auto) Eos % (Auto) Baso % (Auto) Lymph # (Auto) [place] # (Auto) Eos # (Auto) Baso # (Auto) Abs Immat Gran (auto) Absolute Neuts (auto) Absolute Nucleated RBC Nucleated RBC % Puncture Site Right radial ABG pH 7.546 H* ABG pCO2 32.2 L ABG pO2 61.9 L ABG PO2/FiO2 Ratio 0.94 ABG HCO3 27.3 H ABG O2 Saturation 94.5 L ABG O2 Content 13.8 L ABG Base Excess 5.0 A-a Gradient 373.7 Oxyhemoglobin 91.6 Carboxyhemoglobin 0.7 Methemoglobin 0.0 Reduced Hemoglobin 7.7 H Total Hemoglobin 10.7 L O2 Delivery Device High flow therapy O2 Liters/Min 60.0 FiO2 66 Sodium 143 Potassium 2.8 L* Chloride 101 Carbon Dioxide 33 H Anion Gap 9 BUN 47 H D Creatinine 1.30 H Estim Creat Clear Calc 33 Estimated GFR 40 L Glucose 112 H POC Capillary Glucose 111 H Calcium 8.9 Phosphorus 5.1 H Magnesium 1.6 Total Bilirubin 1.7 H AST 94 H ALT 55 H Alkaline Phosphatase 116 Total Protein 8.0 Albumin 3.9 Random Vancomycin 22.4 H 02/01/24 02/01/24 02/01/24 12:47 13:22 15:30 WBC 13.7 H RBC 2.92 L Hgb 9.1 L Hct 28.3 L MCV 96.9 MCH 31.2 MCHC 32.2 RDW 14.7 H Plt Count 322 MPV 10.7 H Immature Gran % (Auto) 1.1 H Neut % (Auto) 78.6 H Lymph % (Auto) 11.7 L [place] % (Auto) 6.2 Eos % (Auto) 2.0 Baso % (Auto) 0.4 Lymph # (Auto) 1.60 [place] # (Auto) 0.9 H Eos # (Auto) 0.3 Baso # (Auto) 0.1 Abs Immat Gran (auto) 0.15 H Absolute Neuts (auto) 10.8 H Absolute Nucleated RBC 0.020 H Nucleated RBC % 0.1 Puncture Site ABG pH ABG pCO2 ABG pO2 ABG PO2/FiO2 Ratio ABG HCO3 ABG O2 Saturation ABG O2 Content ABG Base Excess A-a Gradient Oxyhemoglobin Carboxyhemoglobin Methemoglobin Reduced Hemoglobin Total Hemoglobin O2 Delivery Device O2 Liters/Min FiO2 Sodium 139 Potassium 3.8 Chloride 103 Carbon Dioxide 32 H Anion Gap 4 BUN 42 H Creatinine 1.00 Estim Creat Clear Calc 42 Estimated GFR 55 L Glucose 141 H POC Capillary Glucose 138 H 126 H Calcium 8.3 L Phosphorus Magnesium Total Bilirubin 1.5 H AST 83 H ALT 56 H Alkaline Phosphatase 108 Total Protein 7.0 Albumin 3.6 Random Vancomycin
[2024-02-01] MEDS: dexmedeTOMIDine 400 MCG/100 ML 400 MCG/100 ML BAG 5.79 MCG IV CONT (20:06)
[2024-02-01 20:20] LABS: Glucose Point of Care 136 mg/dl (65-105)
[2024-02-01 23:10] LABS: Glucose Point of Care 127 mg/dl (65-105)
[2024-02-02] VITALS (63 sets, daily range): BP systolic 100–164; BP diastolic 50–81; PULSE 43–97; RESP 16–30; TEMP 36.4–37.8; O2SAT 92–99
[2024-02-02] MEDS: ACETAMINOPHEN 325 MG TABLET 650 MG PO ×2 (01:46→21:03)
[2024-02-02] MEDS: IPRATROPIUM 0.5 MG/ALBUTEROL SULFATE 2.5 MG AMPUL.NEB 3 ML INHALATION ×4 (02:00→20:27)
[2024-02-02] MEDS: ACETYLCYSTEINE 20% INHAL SOLN 800 MG/4 ML VIAL 200 MG INHALATION (02:00)
[2024-02-02] MEDS: AMPICILLIN SULB 3 GM/NS 100 ML 3 GM/100 ML VIAL IVPB ×4 (02:57→20:58)
[2024-02-02 03:07] LABS: Glucose Point of Care 144 mg/dl (65-105)
[2024-02-02] MEDS: LEVOTHYROXINE SODIUM 112 MCG TABLET PO (05:06)
[2024-02-02 05:27] LABS: Basophils Percent Auto 0.4 % (0.2-1.2); Eosinophils Absolute Auto 0.4 K/mm3 (0-0.3); Eosinophils Percent Auto 4.2 % (0-4.4); Hematocrit 27.6 % (37.0-47.0); Hemoglobin 8.7 g/dL (12.0-15.0); Immature Granulocyte Absolute 0.08 K/mm3 (0.00-0.031); Immature Granulocyte Percent A 0.8 % (0-0.5); Lymphocytes Absolute Auto 1.77 K/mm3 (0.9-3.2); Lymphocytes Percent Auto 17.5 % (18.3-44.2); Mean Corpuscular HGB Conc 31.5 g/dl (32-36); Mean Corpuscular Hemoglobin 30.9 pg (26-34); Mean Corpuscular Volume 97.9 fl (80-100); Mean Platelet Volume 10.4 fl (7.4-10.4); Monocytes Absolute Auto 0.5 K/mm3 (0.1-0.6); Monocytes Percent Auto 5.1 % (2.6-8.5); Neutrophils Absolute Auto 7.3 K/mm3 (1.3-6.7); Platelet Count Result 282 k/mm3 (150-375); Red Blood Count 2.82 M/mm3 (4.2-5.4); Red Cell Distribution Width 14.6 % (11.5-14.5); White Blood Count 10.1 K/mm3 (4.5-10.0)
[2024-02-02 05:40] LABS: Alanine Aminotransferase 55 U/L (6-35); Albumin Level 3.3 g/dL (3.5-5.1); Alkaline Phosphatase 103 U/L (38-126); Anion Gap 5 mmol/L (4-12); Aspartate Amino Transferase 79 U/L (14-36); Bilirubin,Total 1.1 mg/dL (0.2-1.3); Blood Urea Nitrogen 34 mg/dL (7-17); Carbon Dioxide 30 mmol/L (22-30); Chloride 100 mmol/L (98-107); Estimated CRCL calculation 35 ml/min; Estimated Glomerular Filt Rate 44; Glucose 185 mg/dL (65-110); Phosphorus 4.8 mg/dL (2.5-4.5); Potassium 3.3 mmol/L (3.4-5.0); Sodium 135 mmol/L (137-145); Triglycerides 99 mg/dL (<150)
[2024-02-02 05:52] LABS: Alveolar/Arterial O2 Gradient 255.9 mmHg; Base Excess ABG 0.8 mEq/l (+/-2.0); Carboxyhemoglobin 0.6 % THb (0-2.0); Fractional Inspired Oxygen 50 %; HCO3 ABG 23.8 mEq/l (22.0-26.0); Methemoglobin ABG 0.3 %THb (0-1.5); Oxygen Content ABG 14.7 %vol (16.0-22.0); Oxygen Saturation ABG 93.9 % (95.0-100.0); Oxyhemoglobin 90.9 % THb (90.0-100.0); PCO2 ABG 32.9 mmHg (35.0-45.0); PO2 ABG 63.6 mmHg (80.0-100.0); PO2 FiO2 Ratio Arterial Blood 1.27 %; Reduced Hemoglobin 8.2 %THb (0-5.0); Total Hemoglobin 11.5 g/dL (12.0-18.0); pH ABG 7.478 (7.350-7.450)
[2024-02-02 05:55] LABS: Device HIGH FLOW THERAPY; Modified Allen's Test Pass; Site Drawn RIGHT RADIAL
[2024-02-02] MEDS: PANTOPRAZOLE SODIUM IV 40 MG VIAL IV PUSH ×2 (08:36→21:01)
--- NOTE | 2024-02-02 09:03 | PCPTNOTE ---
Attempted PT evaluation, pt going for procedure soon per nursing. Will follow.
[2024-02-02] MEDS: KCL 40 MEQ/WATER 100 ML 100 ML 25 ML IVPB (09:06)
--- NOTE | 2024-02-02 09:32 | P.PNINT_ITS ---
Progress Note: A&P Assessment and Plan (1) Acute respiratory failure: Code(s): J96.00 - Acute respiratory failure, unspecified whether with hypoxia or hypercapnia Status: Acute Assessment and Plan: Acute Respiratory failure secondary to pneumonia and PE. Patient appears to have developed ARDS Patient had became CPAP dependent 100% FiO2. 01/20 patient intubated for discussion with the patient and her daughter. ABG reviewed and low tidal volume ventilation. PEEP set at 12 tidal volume at 300 mL. FiO2 is 100%. Increase respiratory rate to 26 Post intubation patient was coughing and gagging leading to desaturation hence was given rocuronium. Patient was started on Nimbex infusion along with sedation at this time. Patient was placed in prone position CT scan done yesterday showed IMPRESSION: Worsening respiratory status with bibasilar consolidation and interstitial thickening with patchy groundglass opacification bilaterally -findings suggesting ARDS. Status post steroids for pneumonia and ARDS Status post Nimbex 01/25: Started dialysis with removal of 1066 mL in fluid removal -Continue Bronchodilators 01/28: Diuresed well with Bumex with 1400 mL in negative fluid balance 01/29: Discussed with Nephrology, diuresed well with Bumex with approximately 1600 mL in negative fluid balance 01/30: Chest x-ray - Stable or mildly improved extensive bilateral pulmonary infiltrates, most prominent in the lower lobes, especially left lower lobe. 01/30: Patient was placed on SBT, did very well, are is be eyes were 20s to 30s, post SBT ABG load good, patient was extubated only to require oxygen later in the evening and was placed on high-flow therapy Remains on high-flow therapy, 50% FiO2 and 60 L flow rate. Add IS. Will discuss with Nephrology regarding diuresis was dialysis to remove additional fluid. Chest x-ray reviewed (2) Septic shock: Code(s): A41.9 - Sepsis, unspecified organism; R65.21 - Severe sepsis with septic shock Status: Acute Assessment and Plan: Secondary to pneumonia 01/17: Patient presented with hypotension, elevated lactic acid levels, fevers, cough, hypoxia -received 30 mL/kg IV fluids -started on Levophed via femoral central line - Off IV fluids vasopressors now -01/17: Blood cultures have been obtained and negative till now MRSA screen negative Urine pneumococcal antigen negative Urine Legionella antigen pending Influenza RSV and COVID PCR negative 01/22: Sputum cultures growing MRSA, -continue vancomycin 01/26 Flagyl and ceftriaxone discontinued 01/28: Patient has been febrile with a T-max of 101.3?, 01/28: Blood, and sputum cultures negative so far 01/28: Urine cultures with no growth -01/30 CT brain, showed Moderate mucoperiosteal thickening of the left sphenoid sinus and partial opacification of mastoid air cells bilaterally -given patient continues to have low-grade fevers, started patient on Unasyn for possible sinusitis (01/30) (3) Community acquired pneumonia: Qualifiers: Laterality: left Lung location: lower lobe of lung Qualified Code(s): J18.9 - Pneumonia, unspecified organism Code(s): J18.9 - Pneumonia, unspecified organism Status: Acute Assessment and Plan: See above (4) Diabetes: Code(s): E11.9 - Type 2 diabetes mellitus without complications Status: Acute Assessment and Plan: Uncontrolled Continue Accu-Cheks and sliding scale insulin Lantus currently on hold since patient is NPO (5) Acute kidney injury: Code(s): N17.9 - Acute kidney failure, unspecified Status: Acute Assessment and Plan: Patient initially presented with Acute kidney injury likely related to hypotension, septic shock She was adequately fluid-resuscitated and came off of IV fluids Creatinine normalized initially Patient did receive contrast for CTA Creatinine increased post intubation. 01/22 Lasix IV x1 Patient was given 25% albumin and will give 5% albumin. Will avoid liberal fluids due to patient's respiratory status. Patient is positive her I/O balance 01/25: Creatinine continues to increase along with elevated BUN today. Urine output also decreasing. Dr Dunbar discussed with nephrology and family will plan to initiate dialysis. Temporary dialysis catheter placed after obtaining consent from patient's family. Discussed with nephrology. [employer] will arrange for dialysis 01/25: Started dialysis with 1066 mL in fluid removal 01/26: Dialysis with 883 mL in fluid removal 01/27: Dialysis with 3000 mL in fluid removal 01/28: Diuresed with Bumex with good urine output and approx 1400 mL in negative fluid balance 01/29: Diuresis with Bumex with good urine output and approx 1600 mL in negative fluid balance 01/30: Diuresis Bumex with good urine output in approximately 2000 mL in negative fluid balance 01/31: Discussed with Nephrology, will hold diuresis today since patient's potassium is low and being repleted. If she does not have good urine output during the end of the day will diurese with Bumex per Nephrology 02/01: Urine output electrolytes reviewed. Will discuss with Nephrology regarding further plans. (6) Pulmonary embolism: Code(s): I26.99 - Other pulmonary embolism without acute cor pulmonale Status: Acute Assessment and Plan: 01/18: Venous Dopplers negative 01/26: Heparin infusion is being held due to anemia and hematuria and drop in hemoglobin -will continue to monitor hemoglobin levels, if remains stable, may start Loveno x 1 mg/kg daily starting 01/27 01/27: Hemoglobin 7.0 this morning, will continue to hold anticoagulation, status post 1 unit of packed RBC 01/29: Remains febrile, venous Dopplers: Small amount of nonocclusive deep venous thrombosis at the right common femoral vein reported site of a recently removed central venous catheter. No other deep venous thrombosis in the remain ángel of the bilateral lower limbs. -patient did not tolerate anticoagulation for a small PE, appreciate surgical evaluation, IVC filter placement on Friday, 02/02/202401/17: CT chest abdomen and pelvis IMPRESSION: Nonocclusive acute subsegmental pulmonary embolus in the left lower lobe. Very small clot burden. No evidence of right heart strain. Left lower lobe pneumonia. Mild hepatomegaly. Possible cystitis. Otherwise, no acute abdominopelvic process detected. Echo Summary 1. Left ventricular systolic function is normal, estimated at 55-60%. 2. There is mildly increased left ventricular wall thickness. 3. The left ventricular diastolic function is grade I diastolic dysfunction. 4. There is trace mitral valve regurgitation. 5. There is trace tricuspid valve regurgitation. 6. No pulmonary hypertension, estimated pulmonary arterial systolic pressure is 41 mmHg. 7. Right ventricular systolic function is normal. 8. Right ventricular chamber dimension is normal. (7) Electrolyte abnormality: Code(s): E87.8 - Other disorders of electrolyte and fluid balance, not elsewhere classifi ed Status: Acute Assessment and Plan: Replace low potassium (8) Diverticulitis: Code(s): K57.92 - Diverticulitis of intestine, part unspecified, without perforation or abscess without bleeding Status: Acute Assessment and Plan: CT abdomen pelvis showed Mural thickening within the rectosigmoid colon with multiple diverticula and prominence of the vasa recta, possibly early diverticulitis. Interval development of perihepatic fluid, compared with previous study. Status post ceftriaxone and Flagyl (9) Ileus: Code(s): K56.7 - Ileus, unspecified Status: Acute Assessment and Plan: Patient is now off tube feeds. Diet ordered will be resumed after the procedure (10) Anemia: Code(s): D64.9 - Anemia, unspecified Status: Acute Assessment and Plan: Patient's hemoglobin has gradually trended down over last 4-5 days. She is on heparin infusion for PE. There has been no evidence of bleeding. Continue monitor this time. Transfuse if hemoglobin less than 7. Platelets are at acceptable level. She is also on aspirin Plavix for coronary disease She is on Protonix twice a day 01/26: Hemoglobin dropped to 7.1, will hold heparin infusion. Monitor hemoglobin levels and if the improved restart either heparin infusion or Lovenox 1 mg/kg daily 01/27: Hemoglobin 7.0 this morning, status post 1 unit of packed RBCs with hemodialysis, continue to hold anticoagulation Hemoglobin remains stable at this time, anticoagulation continues to be on hold (11) Encephalopathy: Code(s): G93.40 - Encephalopathy, unspecified Status: Acute Assessment and Plan: Patient is now awake, alert, oriented x3, will discontinue Precedex infusion 01/30: CT brain Cerebral atherosclerosis and chronic small vessel ischemic changes of the cerebral white matter No acute intracranial finding Moderate mucoperiosteal thickening of the left sphenoid sinus and partial opacification of mastoid air cells bilaterally Plan DVT prophylaxis: Heparin infusion has been stopped due to drop in hemoglobin, continue SCDs Stress ulcer prophylaxis: Protonix IV q.12 hours Nutrition: Currently NPO for the procedure. Modified diet ordered after speech evaluation Code status: full code Critical Care Time Spent: 32 minutes Due to a high probability of clinically significant, life threatening deterioration, the patient required my highest level of preparedness to intervene emergently and I personally spent this critical care time directly and personally managing the patient. This critical care time included obtaining a history; examining the patient; pulse oximetry; ordering and review of studies; arranging urgent treatment with development of a management plan; evaluation of patient's response to treatment; frequent reassessment; and discussions with other providers. It was exclusive of separately billable procedures and treating other patients and teaching time. Please see Assessment and Plan section and the rest of the note for further information on patient assessment and treatment This dictation may have been done utilizing a voice recognition system. Attempts have been made to correct errors. However, there may be uncorrected grammatical, spelling, and recognitions errors present. Subjective Date/time seen: 02/02/24 Patient states she feels good and complains of pain in her bottom from laying in bed. She is eager to get her procedure done and eat. She denies any shortness of breath chest pain abdominal pain nausea vomiting dizziness lightheadedness shortness of breath cough. She continues to be on Airvo at 50% FiO2 She is on 0.3 mcg of Precedex Adequate urine output Afebrile All other systems were reviewed and were negative Interval history: 68yo female with HTN, CHF, DM and HLD with PE pneumonia acute respiratory failure ARDS acute kidney injury 01/29: Venous Dopplers: Small amount of nonocclusive deep venous thrombosis at the right common femoral vein reported site of a recently removed central venous catheter. No other deep venous thrombosis in the remainder of the bilateral lower limbs. 01/30: Extubated Review of Systems Review of Systems: All systems reviewed & are unremarkable except as noted in HPI and below Exam Narrative: General: Patient is awake, confused, in no acute distress HEENT:? Pupils equal and reactive, sclerae is clear, high-flow therapy cannula Neck:? Supple Respiratory:? Coarse breath sounds bilaterally, decreased at bases, no wheezing Cardiac:? S1-S2 was normal, regular rate and rhythm Abdomen:? Soft, non distended, no tenderness, hypoactive bowel sounds, Extremities:? No edema, palpable pedal pulses Neuro:? Patient is awake, alert,, oriented x3, follows simple commands in all extremities, answers questions Skin:? Warm and dry Objective Data Vital Signs Vital Signs: Vital Signs - 24 hr 02/01/24 10:00 02/01/24 10:00 02/01/24 10:00 Temperature 36.8 C Pulse Rate 61 61 61 Respiratory Rate 16 16 Blood Pressure 137/55 L Pulse Oximetry 93 Oxygen Delivery Oxygen Flow Rate Fraction of Inspired Oxygen 02/01/24 10:52 02/01/24 10:52 02/01/24 12:00 Temperature Pulse Rate 56 L 56 L 61 Respiratory Rate 19 19 17 Blood Pressure Pulse Oximetry Oxygen Delivery Oxygen Flow Rate Fraction of Inspired Oxygen 02/01/24 12:00 02/01/24 12:00 02/01/24 12:00 Temperature 36.8 C Pulse Rate 61 62 Respiratory Rate 17 Blood Pressure 137/62 Pulse Oximetry 99 99 Oxygen Delivery High Flow Therapy with Na Oxygen Flow Rate 60 Fraction of Inspired Oxygen 65 02/01/24 14:00 02/01/24 14:00 02/01/24 14:00 Temperature 36.3 C L Pulse Rate 63 63 63 Respiratory Rate 22 H 22 H Blood Pressure 136/63 Pulse Oximetry 90 Oxygen Delivery Oxygen Flow Rate Fraction of Inspired Oxygen 02/01/24 14:09 02/01/24 14:12 02/01/24 14:19 Temperature Pulse Rate 59 L 48 L Respiratory Rate 21 H 20 Blood Pressure Pulse Oximetry 95 Oxygen Delivery High Flow Therapy with Na Oxygen Flow Rate 60 Fraction of Inspired Oxygen 65 02/01/24 14:22 02/01/24 16:00 02/01/24 16:00 Temperature Pulse Rate 59 L 58 L Respiratory Rate 22 H 19 Blood Pressure Pulse Oximetry 95 Oxygen Delivery High Flow Therapy with Na Oxygen Flow Rate 60 Fraction of Inspired Oxygen 65 02/01/24 16:00 02/01/24 16:00 02/01/24 17:05 Temperature 36.6 C Pulse Rate 56 L 58 L Respiratory Rate 19 Blood Pressure 135/59 L Pulse Oximetry 95 96 Oxygen Delivery High Flow Therapy with Na Oxygen Flow Rate 60 Fraction of Inspired Oxygen 50 02/01/24 17:08 02/01/24 18:00 02/01/24 18:00 Temperature Pulse Rate 54 L 56 L 56 L Respiratory Rate 20 17 Blood Pressure Pulse Oximetry Oxygen Delivery Oxygen Flow Rate Fraction of Inspired Oxygen 02/01/24 18:00 02/01/24 18:42 02/01/24 20:06 Temperature 36.6 C Pulse Rate 56 L 50 L 54 L Respiratory Rate 17 18 22 H Blood Pressure 124/91 H Pulse Oximetry 97 Oxygen Delivery Oxygen Flow Rate Fraction of Inspired Oxygen 02/01/24 20:06 02/01/24 20:00 02/01/24 20:00 Temperature 36.8 C Pulse Rate 54 L 56 L 54 L Respiratory Rate 22 H 17 Blood Pressure 142/60 H Pulse Oximetry 96 Oxygen Delivery Oxygen Flow Rate Fraction of Inspired Oxygen 02/01/24 20:00 02/01/24 20:25 02/01/24 20:35 Temperature Pulse Rate 57 L Respiratory Rate 20 Blood Pressure Pulse Oximetry 96 97 Oxygen Delivery High Flow Therapy with Na High Flow Therapy with Na Oxygen Flow Rate 60 60 Fraction of Inspired Oxygen 50 50 02/01/24 20:36 02/01/24 22:00 02/01/24 22:00 Temperature 36.8 C Pulse Rate 59 L 57 L 57 L Respiratory Rate 20 18 Blood Pressure 135/56 L Pulse Oximetry 97 Oxygen Delivery Oxygen Flow Rate Fraction of Inspired Oxygen 02/01/24 22:00 02/02/24 00:00 02/02/24 00:00 Temperature 36.9 C Pulse Rate 57 L 58 L 58 L Respiratory Rate 18 18 18 Blood Pressure 164/73 H Pulse Oximetry 97 Oxygen Delivery Oxygen Flow Rate Fraction of Inspired Oxygen 02/02/24 00:00 02/02/24 00:00 02/02/24 01:51 Temperature Pulse Rate 60 59 L Respiratory Rate 16 Blood Pressure Pulse Oximetry 97 Oxygen Delivery High Flow Therapy with Na Oxygen Flow Rate 60 Fraction of Inspired Oxygen 50 02/02/24 02:09 02/02/24 02:00 02/02/24 02:00 Temperature Pulse Rate 59 L 62 62 Respiratory Rate 20 22 H Blood Pressure Pulse Oximetry Oxygen Delivery Oxygen Flow Rate Fraction of Inspired Oxygen 02/02/24 02:00 02/02/24 02:39 02/02/24 02:57 Temperature 36.9 C Pulse Rate 62 63 56 L Respiratory Rate 22 H 26 H 21 H Blood Pressure 123/60 Pulse Oximetry 96 Oxygen Delivery Oxygen Flow Rate Fraction of Inspired Oxygen 02/02/24 03:46 02/02/24 03:50 02/02/24 04:00 Temperature 36.7 C Pulse Rate 46 L 43 L Respiratory Rate 21 H 20 Blood Pressure 100/50 L Pulse Oximetry 97 97 Oxygen Delivery High Flow Therapy with Na Oxygen Flow Rate 60 Fraction of Inspired Oxygen 50 02/02/24 04:03 02/02/24 04:00 02/02/24 05:09 Temperature Pulse Rate 43 L 55 L 53 L Respiratory Rate 19 18 Blood Pressure Pulse Oximetry Oxygen Delivery Oxygen Flow Rate Fraction of Inspired Oxygen 02/02/24 06:00 02/02/24 06:00 02/02/24 06:00 Temperature 36.4 C Pulse Rate 53 L 53 L 53 L Respiratory Rate 16 16 Blood Pressure 119/64 Pulse Oximetry 94 Oxygen Delivery Oxygen Flow Rate Fraction of Inspired Oxygen 02/02/24 06:54 02/02/24 07:59 02/02/24 08:00 Temperature Pulse Rate 44 L 53 L 54 L Respiratory Rate 19 22 H 17 Blood Pressure Pulse Oximetry 96 Oxygen Delivery High Flow Therapy with Na Oxygen Flow Rate 60 Fraction of Inspired Oxygen 50 02/02/24 08:00 02/02/24 08:00 02/02/24 08:17 Temperature 36.8 C Pulse Rate 54 L 54 L Respiratory Rate 17 Blood Pressure 127/58 L Pulse Oximetry 96 95 Oxygen Delivery High Flow Therapy with Na Oxygen Flow Rate 60 Fraction of Inspired Oxygen 50 02/02/24 08:17 02/02/24 08:24 Temperature Pulse Rate 53 L 55 L Respiratory Rate 20 18 Blood Pressure Pulse Oximetry Oxygen Delivery Oxygen Flow Rate Fraction of Inspired Oxygen Intake/Output Intake/Output: Intake & Output 01/30/24 01/31/24 02/01/24 02/02/24 23:59 23:59 23:59 23:59 Intake Total 2075.9 1595.9 1670.4 1014.5 Output Total 3675 3650 1550 550 Balance -1599.1 -2054.1 120.4 464.5 Meds/Results Medications: Active Medications Generic Name Dose Route Start Last Admin Trade Name Freq PRN Reason Stop Dose Admin Acetaminophen 650 mg 01/20/24 10:08 02/02/24 01:46 Acetaminophen 325 Mg Tablet PO 650 mg Q4H PRN Administration Mild Pain (1-3) or Fever Albuterol/Ipratropium 3 ml 01/22/24 14:00 02/02/24 08:17 Ipratropium 0.5 Mg/Albuterol Sulfate 2.5 Mg Ampul.Neb 3 Ml INHALATION 3 ml Q6HRT EDMOND Administration Aspirin 81 mg 01/19/24 08:00 02/01/24 10:56 Aspirin 81 Mg Chewable Tablet PO 81 mg DAILY@0800 EDMOND Administration Atorvastatin Calcium 40 mg 01/19/24 09:00 02/01/24 10:56 Atorvastatin 40 Mg Tablet PO 40 mg DAILY EDMOND Administration Clopidogrel Bisulfate 75 mg 01/19/24 09:00 02/01/24 10:56 Clopidogrel Bisulfate 75 Mg Tablet PO 75 mg DAILY EDMOND Administration Dextrose 12.5 gm 01/18/24 23:28 Dextrose 50% 25 Gm/50 Ml Syringe IV PUSH PRN PRN Hypoglycemia Protocol Epoetin Ronnell-epbx 10,000 units 01/31/24 13:30 01/31/24 14:25 Epoetin Ronnell-Epbx 10,000 Units/Ml Vial SUB-Q 10,000 units TUTHSA@09 EDMOND Administration Glucagon 1 mg 01/18/24 23:28 Glucagon For Inj 1 Mg Vial IM PRN PRN Hypoglycemia Protocol Glucose 15 gm 01/18/24 23:28 Glucose Oral Gel 15 Gm Of Glucse In 37.5 Gm Tube PO PRN PRN Hypoglycemia Protocol Dextrose 1,000 mls @ 100 mls/hr 01/18/24 23:28 Dextrose 5% 1,000 Ml IVPB PRN PRN Hypoglycemia Protocol Albumin Human 50 mls @ 999 mls/hr 01/26/24 11:40 01/27/24 09:51 Albutein IVPB 02/25/24 11:39 999 mls/hr Q10M PRN Administration HYPOTENSION Ampicillin Sodium/Sulbactam Sodium 3 gm in 100 mls @ 200 mls/hr 01/31/24 15:00 02/02/24 08:37 Unasyn 3 Gm/Ns 100 Ml IVPB 200 mls/hr Q6H EDMOND Administration Dexmedetomidine HCl 400 mcg in 100 mls @ 0 mls/hr 01/31/24 23:45 02/02/24 07:59 Precedex 400 Mcg/100 Ml IV CONT 0 mcg/kg/hr .Q0M EDMOND 0 mls/hr Titration Protocol Vancomycin HCl 1,000 mg in 250 mls @ 250 mls/hr 02/01/24 10:00 02/01/24 12:13 Vancomycin 1,000 Mg/Ns 250 Ml IVPB Infused Q24H EDMOND Infusion Potassium Chloride 100 mls @ 25 mls/hr 02/02/24 08:00 02/02/24 09:06 Kcl 40 Meq/Water 100 Ml IVPB 02/02/24 11:59 25 mls/hr ONCE ONE Administration Insulin Aspart 4 - 8 units 01/19/24 12:00 02/02/24 08:29 Insulin Aspart (*Bkc) 100 Units/Ml SUB-Q Not Given Q4H [facility] Protocol Insulin Glargine 75 units 02/01/24 09:00 Insulin Glargine (*Bkc) 100 Units/Ml SUB-Q QAM EDMOND Levothyroxine Sodium 112 mcg 01/19/24 06:30 02/02/24 05:06 Levothyroxine Sodium 112 Mcg Tablet PO 112 mcg DAILY@0630 EDMOND Administration Ondansetron HCl 4 mg 01/18/24 22:13 Ondansetron Inj 4 Mg/2 Ml Vial IV PUSH Q4H PRN Nausea Pantoprazole Sodium 40 mg 01/19/24 09:00 02/02/24 08:36 Pantoprazole Sodium Iv 40 Mg Vial IV PUSH 40 mg Q12HR EDMOND Administration Polyethylene Glycol 17 gm 01/29/24 10:19 Polyethylene Glycol 3350 17 Gm Powd.Pack PO QAM PRN Constipation Radiology Results: ITS Impressions Chest/Abdomen/Pelvis CTA 01/18/24 18:30 IMPRESSION: Nonocclusive acute subsegmental pulmonary embolus in the left lower lobe. Very small clot burden. No evidence of right heart strain. Left lower lobe pneumonia. Mild hepatomegaly. Possible cystitis. Otherwise, no acute abdominopelvic process detected. Chest/Abdomen/Pelvis CT 01/22/24 12:43 IMPRESSION: Worsening respiratory status with bibasilar consolidation and interstitial thickening with patchy groundglass opacification bilaterally -findings suggesting ARDS. Mural thickening within the rectosigmoid colon with multiple diverticula and prominence of the vasa recta, possibly early diverticulitis. Interval development of perihepatic fluid, compared with previous study. Renal Ultrasound 01/24/24 12:05 IMPRESSION: 1. Normal kidneys without hydronephrosis. Abdomen X-Ray 01/25/24 14:53 IMPRESSION: NG tube in distal stomach Nonspecific abdomen Venous Doppler Study 01/30/24 14:52 IMPRESSION: 1. Small amount of nonocclusive deep venous thrombosis at the right common femoral vein reported site of a recently removed central venous catheter. No other deep venous thrombosis in the remainder of the bilateral lower limbs. Head CT 01/31/24 08:55 IMPRESSION: Cerebral atherosclerosis and chronic small vessel ischemic changes of the cerebral white matter No acute intracranial finding Moderate mucoperiosteal thickening of the left sphenoid sinus and partial opacification of mastoid air cells bilaterally Chest X-Ray 02/02/24 06:16 Impression: Probable patchy bilateral pneumonia. Suspected underlying chronic interstitial disease. Labs Labs: Laboratory Results - last 24 hr 02/01/24 02/01/24 02/01/24 12:47 13:22 15:30 WBC 13.7 H RBC 2.92 L Hgb 9.1 L Hct 28.3 L MCV 96.9 MCH 31.2 MCHC 32.2 RDW 14.7 H Plt Count 322 MPV 10.7 H Immature Gran % (Auto) 1.1 H Neut % (Auto) 78.6 H Lymph % (Auto) 11.7 L [place] % (Auto) 6.2 Eos % (Auto) 2.0 Baso % (Auto) 0.4 Lymph # (Auto) 1.60 [place] # (Auto) 0.9 H Eos # (Auto) 0.3 Baso # (Auto) 0.1 Abs Immat Gran (auto) 0.15 H Absolute Neuts (auto) 10.8 H Absolute Nucleated RBC 0.020 H Nucleated RBC % 0.1 Puncture Site ABG pH ABG pCO2 ABG pO2 ABG PO2/FiO2 Ratio ABG HCO3 ABG O2 Saturation ABG O2 Content ABG Base Excess A-a Gradient Oxyhemoglobin Carboxyhemoglobin Methemoglobin Reduced Hemoglobin Total Hemoglobin O2 Delivery Device O2 Liters/Min FiO2 Sodium 139 Potassium 3.8 Chloride 103 Carbon Dioxide 32 H Anion Gap 4 BUN 42 H Creatinine 1.00 Estim Creat Clear Calc 42 Estimated GFR 55 L Glucose 141 H POC Capillary Glucose 138 H 126 H Calcium 8.3 L Phosphorus Magnesium Total Bilirubin 1.5 H AST 83 H ALT 56 H Alkaline Phosphatase 108 Total Protein 7.0 Albumin 3.6 Triglycerides 02/01/24 02/01/24 02/02/24 20:04 23:03 03:01 WBC RBC Hgb Hct MCV MCH MCHC RDW Plt Count MPV Immature Gran % (Auto) Neut % (Auto) Lymph % (Auto) [place] % (Auto) Eos % (Auto) Baso % (Auto) Lymph # (Auto) [place] # (Auto) Eos # (Auto) Baso # (Auto) Abs Immat Gran (auto) Absolute Neuts (auto) Absolute Nucleated RBC Nucleated RBC % Puncture Site ABG pH ABG pCO2 ABG pO2 ABG PO2/FiO2 Ratio ABG HCO3 ABG O2 Saturation ABG O2 Content ABG Base Excess A-a Gradient Oxyhemoglobin Carboxyhemoglobin Methemoglobin Reduced Hemoglobin Total Hemoglobin O2 Delivery Device O2 Liters/Min FiO2 Sodium Potassium Chloride Carbon Dioxide Anion Gap BUN Creatinine Estim Creat Clear Calc Estimated GFR Glucose POC Capillary Glucose 136 H 127 H 144 H Calcium Phosphorus Magnesium Total Bilirubin AST ALT Alkaline Phosphatase Total Protein Albumin Triglycerides 02/02/24 02/02/24 05:17 05:40 WBC 10.1 H RBC 2.82 L Hgb 8.7 L Hct 27.6 L MCV 97.9 MCH 30.9 MCHC 31.5 L RDW 14.6 H Plt Count 282 MPV 10.4 Immature Gran % (Auto) 0.8 H Neut % (Auto) 72.0 Lymph % (Auto) 17.5 L [place] % (Auto) 5.1 Eos % (Auto) 4.2 Baso % (Auto) 0.4 Lymph # (Auto) 1.77 [place] # (Auto) 0.5 Eos # (Auto) 0.4 H Baso # (Auto) 0.0 Abs Immat Gran (auto) 0.08 H Absolute Neuts (auto) 7.3 H Absolute Nucleated RBC 0.000 Nucleated RBC % 0.0 Puncture Site Right radial ABG pH 7.478 H ABG pCO2 32.9 L ABG pO2 63.6 L ABG PO2/FiO2 Ratio 1.27 ABG HCO3 23.8 ABG O2 Saturation 93.9 L ABG O2 Content 14.7 L ABG Base Excess 0.8 A-a Gradient 255.9 Oxyhemoglobin 90.9 Carboxyhemoglobin 0.6 Methemoglobin 0.3 Reduced Hemoglobin 8.2 H Total Hemoglobin 11.5 L O2 Delivery Device High flow therapy O2 Liters/Min 60.0 FiO2 50 Sodium 135 L Potassium 3.3 L Chloride 100 Carbon Dioxide 30 Anion Gap 5 BUN 34 H Creatinine 1.20 H Estim Creat Clear Calc 35 Estimated GFR 44 L Glucose 185 H POC Capillary Glucose Calcium 8.0 L Phosphorus 4.8 H Magnesium 2.0 Total Bilirubin 1.1 AST 79 H ALT 55 H Alkaline Phosphatase 103 Total Protein 7.0 Albumin 3.3 L Triglycerides 99
[2024-02-02] MEDS: VANCOMYCIN 1,000 MG/NS 250 ML 1,000 MG/250 ML BAG 250 MG IVPB (10:00)
--- NOTE | 2024-02-02 10:09 | P.PNNP_ITS ---
Progress Note: A&P Assessment and Plan (1) Acute kidney injury: Code(s): N17.9 - Acute kidney failure, unspecified Status: Acute Assessment and Plan: * improving overall * initial improvement on admission (from 1.5mg/dl to 0.9mg/dl) * then worsening again noted on 01/21 (up to 1.3mg/dl and subsequently 2.3mg/dl on 01/22) * suspect multifactorial etiology: * contrast exposure * infection/sepsis * hemodynamic instability/shock * possible prerenal factors * diuretic use prior to admission * hypoxia * other(?) * evaluation to date noted: * CPK mildly elevated * UA with blood/protein and possible infection * urine electrolytes prerenal * moderate proteinuria * renal ultrasound w/o obstruction * continues to make good urine output -- responsive to diuretic therapy as well * follow trend of repeat lab and UOP (2) Acute respiratory failure: Code(s): J96.00 - Acute respiratory failure, unspecified whether with hypoxia or hypercapnia Status: Acute Assessment and Plan: * resolving * thought to be secondary to a combination of pneumonia and pulmonary embolus +/- pulmonary edema * appears to have progressed to ARDS * was intubated and placed on mechanical ventilation on 01/20 * now extubated - on high flow oxygen therapy * follow respiratory status (3) Septic shock: Code(s): A41.9 - Sepsis, unspecified organism; R65.21 - Severe sepsis with septic shock Status: Acute Assessment and Plan: * as noted on admission - hypotension, lactic acidosis, fevers, and hypoxia/respiratory failure * presumed source = pneumonia +/- diverticulitiis * s/p IVF resuscitation and vasopressor support (weaned off currently) * recent cultures of blood sputum and urine have been negative * on antibiotics (4) Community acquired pneumonia: Qualifiers: Laterality: left Lung location: lower lobe of lung Qualified Code(s): J18.9 - Pneumonia, unspecified organism Code(s): J18.9 - Pneumonia, unspecified organism Status: Acute Assessment and Plan: * based on evidence to date * viral swab for RSV/COVID/influenza negative * follow culture data - negative to date * on antibiotics (5) Pulmonary embolism: Code(s): I26.99 - Other pulmonary embolism without acute cor pulmonale Status: Acute Assessment and Plan: * admission CTA of chest with nonocclusive acute subsegmental PE in the left lower lobe with small clot burden * venous dopplers results noted * anticoagulation currently on hold due low H/H * plan IVC filter placement today (6) Diverticulitis: Code(s): K57.92 - Diverticulitis of intestine, part unspecified, without perforation or abscess without bleeding Status: Acute Assessment and Plan: * CT abdomen pelvis with mural thickening within the rectosigmoid colon with multiple diverticula and prominence of the vasa recta, possibly early di verticulitis. Interval development of perihepatic fluid, compared with previous study * remains on antibiotics * cultures negative (7) Anemia: Code(s): D64.9 - Anemia, unspecified Status: Acute Assessment and Plan: * presumably due to YESI and acute illness * follow trend of H/H * on Retacrit SQ 3 times a week (since off dialysis) (8) Diabetes: Code(s): E11.9 - Type 2 diabetes mellitus without complications Status: Acute Assessment and Plan: * On accu-cheks * glycemic control per coroner/medical examiner/hospitalist Will continue to follow. Subjective Date/time seen: 02/02/24 10:09 Interval history: Follow-up for acute kidney injury/acute renal failure. Chart reviewed since I last saw her -- currently extubated but remains on high flow oxygen therapy; no apparent distress other than back pain secondary to laying in bed; renal function/creatinine stable if not better with good urine output noted; noted plans for IVC filter placement today. Exam Narrative: General: elderly but WD/WN female in NAD Heart: normal S1 and S2; no rub or gallop Lungs: coarse breath sounds Abdomen: soft, nontender, nondistended, positive bowel sounds Extremities: no cyanosis or clubbing; no edema Skin: warm and dry Objective Data Vital Signs Vital Signs: Vital Signs Temp Pulse Resp BP Pulse Ox O2 Del Method O2 Flow Rate 02/02/24 10:00 98.9 F 60 23 H 153/59 H 97 02/02/24 10:00 60 02/02/24 08:24 55 L 18 02/02/24 08:17 53 L 20 02/02/24 08:17 95 High Flow Therapy with Na 60 02/02/24 08:00 98.2 F 54 L 17 127/58 L 96 12/02/24 08:00 54 L 02/02/24 08:00 54 L 17 96 High Flow Therapy with Na 60 02/02/24 07:59 53 L 22 H 02/02/24 06:54 44 L 19 02/02/24 06:00 53 L 16 02/02/24 06:00 97.6 F 53 L 16 119/64 94 02/02/24 06:00 53 L 02/02/24 05:09 53 L 18 02/02/24 04:00 55 L 02/02/24 04:03 43 L 19 02/02/24 04:00 98.0 F 43 L 20 100/50 L 97 02/02/24 03:50 46 L 21 H 02/02/24 03:46 97 High Flow Therapy with Na 60 02/02/24 02:57 56 L 21 H 02/02/24 02:39 63 26 H 02/02/24 02:00 98.4 F 62 22 H 123/60 96 02/02/24 02:00 62 02/02/24 02:00 62 22 H 02/02/24 02:09 59 L 20 02/02/24 01:51 59 L 16 02/02/24 00:00 60 02/02/24 00:00 97 High Flow Therapy with Na 60 02/02/24 00:00 98.4 F 58 L 18 164/73 H 97 02/02/24 00:00 58 L 18 02/01/24 22:00 57 L 18 02/01/24 22:00 98.2 F 57 L 18 135/56 L 97 02/01/24 22:00 57 L 02/01/24 20:36 59 L 20 02/01/24 20:35 97 High Flow Therapy with Na 60 02/01/24 20:25 57 L 20 02/01/24 20:00 96 High Flow Therapy with Na 60 02/01/24 20:00 54 L 02/01/24 20:00 98.3 F 56 L 17 142/60 H 96 02/01/24 20:06 54 L 22 H 02/01/24 20:06 54 L 22 H 02/01/24 18:42 50 L 18 02/01/24 18:00 97.9 F 56 L 17 124/91 H 97 02/01/24 18:00 56 L 02/01/24 18:00 56 L 17 02/01/24 17:08 54 L 20 02/01/24 17:05 96 High Flow Therapy with Na 60 02/01/24 16:00 97.9 F 58 L 19 135/59 L 95 02/01/24 16:00 56 L 02/01/24 16:00 95 High Flow Therapy with Na 60 02/01/24 16:00 58 L 19 02/01/24 14:22 59 L 22 H 02/01/24 14:19 48 L 20 02/01/24 14:12 95 High Flow Therapy with Na 60 02/01/24 14:09 59 L 21 H 02/01/24 14:00 97.4 F L 63 22 H 136/63 90 02/01/24 14:00 63 02/01/24 14:00 63 22 H 02/01/24 12:00 99 High Flow Therapy with Na 60 02/01/24 12:00 62 02/01/24 12:00 98.2 F 61 17 137/62 99 02/01/24 12:00 61 17 Intake/Output Intake/Output: Intake & Output 01/30/24 01/31/24 02/01/24 02/02/24 23:59 23:59 23:59 23:59 Intake Total 2075.9 1595.9 1670.4 1114.5 Output Total 3675 3650 1550 550 Balance -1599.1 -2054.1 120.4 564.5 Meds/Results Medications: Active Medications Generic Name Dose Route Start Last Admin Trade Name Freq PRN Reason Stop Dose Admin Acetaminophen 650 mg 01/20/24 10:08 02/02/24 01:46 Acetaminophen 325 Mg Tablet PO 650 mg Q4H PRN Administration Mild Pain (1-3) or Fever Albuterol/Ipratropium 3 ml 01/22/24 14:00 02/02/24 08:17 Ipratropium 0.5 Mg/Albuterol Sulfate 2.5 Mg Ampul.Neb 3 Ml INHALATION 3 ml Q6HRT EDMOND Administration Aspirin 81 mg 01/19/24 08:00 02/01/24 10:56 Aspirin 81 Mg Chewable Tablet PO 81 mg DAILY@0800 EDMOND Administration Atorvastatin Calcium 40 mg 01/19/24 09:00 02/01/24 10:56 Atorvastatin 40 Mg Tablet PO 40 mg DAILY EDMOND Administration Clopidogrel Bisulfate 75 mg 01/19/24 09:00 02/01/24 10:56 Clopidogrel Bisulfate 75 Mg Tablet PO 75 mg DAILY EDMOND Administration Dextrose 12.5 gm 01/18/24 23:28 Dextrose 50% 25 Gm/50 Ml Syringe IV PUSH PRN PRN Hypoglycemia Protocol Epoetin Ronnell-epbx 10,000 units 01/31/24 13:30 01/31/24 14:25 Epoetin Ronnell-Epbx 10,000 Units/Ml Vial SUB-Q 10,000 units TUTHSA@09 EDMOND Administration Glucagon 1 mg 01/18/24 23:28 Glucagon For Inj 1 Mg Vial IM PRN PRN Hypoglycemia Protocol Glucose 15 gm 01/18/24 23:28 Glucose Oral Gel 15 Gm Of Glucse In 37.5 Gm Tube PO PRN PRN Hypoglycemia Protocol Dextrose 1,000 mls @ 100 mls/hr 01/18/24 23:28 Dextrose 5% 1,000 Ml IVPB PRN PRN Hypoglycemia Protocol Albumin Human 50 mls @ 999 mls/hr 01/26/24 11:40 01/27/24 09:51 Albutein IVPB 02/25/24 11:39 999 mls/hr Q10M PRN Administration HYPOTENSION Ampicillin Sodium/Sulbactam Sodium 3 gm in 100 mls @ 200 mls/hr 01/31/24 15:00 02/02/24 09:10 Unasyn 3 Gm/Ns 100 Ml IVPB Infused Q6H EDMOND Infusion Dexmedetomidine HCl 400 mcg in 100 mls @ 0 mls/hr 01/31/24 23:45 02/02/24 07:59 Precedex 400 Mcg/100 Ml IV CONT 0 mcg/kg/hr .Q0M EDMOND 0 mls/hr Titration Protocol Vancomycin HCl 1,000 mg in 250 mls @ 250 mls/hr 02/01/24 10:00 02/02/24 10:00 Vancomycin 1,000 Mg/Ns 250 Ml IVPB 250 mls/hr Q24H EDMOND Administration Potassium Chloride 100 mls @ 25 mls/hr 02/02/24 08:00 02/02/24 09:06 Kcl 40 Meq/Water 100 Ml IVPB 02/02/24 11:59 25 mls/hr ONCE ONE Administration Insulin Aspart 4 - 8 units 01/19/24 12:00 02/02/24 08:29 Insulin Aspart (*Bkc) 100 Units/Ml SUB-Q Not Given Q4H [facility] Protocol Insulin Glargine 75 units 02/01/24 09:00 Insulin Glargine (*Bkc) 100 Units/Ml SUB-Q QAM [facility] Levothyroxine Sodium 112 mcg 01/19/24 06:30 02/02/24 05:06 Levothyroxine Sodium 112 Mcg Tablet PO 112 mcg DAILY@0630 EDMOND Administration Ondansetron HCl 4 mg 01/18/24 22:13 Ondansetron Inj 4 Mg/2 Ml Vial IV PUSH Q4H PRN Nausea Pantoprazole Sodium 40 mg 01/19/24 09:00 02/02/24 08:36 Pantoprazole Sodium Iv 40 Mg Vial IV PUSH 40 mg Q12HR [facility]MOND Administration Polyethylene Glycol 17 gm 01/29/24 10:19 Polyethylene Glycol 3350 17 Gm Powd.Pack PO QAM PRN Constipation Radiology Results: ITS Impressions Chest/Abdomen/Pelvis CTA 01/18/24 18:30 IMPRESSION: Nonocclusive acute subsegmental pulmonary embolus in the left lower lobe. Very small clot burden. No evidence of right heart strain. Left lower lobe pneumonia. Mild hepatomegaly. Possible cystitis. Otherwise, no acute abdominopelvic process detected. Chest/Abdomen/Pelvis CT 01/22/24 12:43 IMPRESSION: Worsening respiratory status with bibasilar consolidation and interstitial thickening with patchy groundglass opacification bilaterally -findings suggesting ARDS. Mural thickening within the rectosigmoid colon with multiple diverticula and prominence of the vasa recta, possibly early diverticulitis. Interval development of perihepatic fluid, compared with previous study. Renal Ultrasound 01/24/24 12:05 IMPRESSION: 1. Normal kidneys without hydronephrosis. Abdomen X-Ray 01/25/24 14:53 IMPRESSION: NG tube in distal stomach Nonspecific abdomen Venous Doppler Study 01/30/24 14:52 IMPRESSION: 1. Small amount of nonocclusive deep venous thrombosis at the right common femoral vein reported site of a recently removed central venous catheter. No other deep venous thrombosis in the remainder of the bilateral lower limbs. Head CT 01/31/24 08:55 IMPRESSION: Cerebral atherosclerosis and chronic small vessel ischemic changes of the cerebral white matter No acute intracranial finding Moderate mucoperiosteal thickening of the left sphenoid sinus and partial opacification of mastoid air cells bilaterally Chest X-Ray 02/02/24 06:16 Impression: Probable patchy bilateral pneumonia. Suspected underlying chronic interstitial disease. Labs Labs: Laboratory Tests 02/02/24 05:17 02/02/24 05:17 Calcium 8.0 L Phosphorus 4.8 H Magnesium 2.0 Total Bilirubin 1.1 AST 79 H ALT 55 H Alkaline Phosphatase 103 Total Protein 7.0 Albumin 3.3 L Triglycerides 99 Microbiology 01/29/24 09:15 Sputum Sputum Culture - Final
--- NOTE | 2024-02-02 10:40 | PCFNICU ---
ICU Rounding Note: Pt current nutrition is NPO today for IVC filter. Nutrition recommendation: PO diet as ordered when diet is advanced Last recorded weight is 75.9 kg. Bowel Motility: Liquid stool per FMS Labs Reviewed: Hgb 8.7, Hct 27.6, Alb 3.3, Na 135, K+ 3.3, GFR 44, BUN 34, Cre 1.2, Glu 185 Meds Noted: Novolog, Lantus, Zofran, protonix Skin: No skin issues Additional Notes: Pt was extubated and NPO today for ICV filter. Resume diet when able and will follow for recommendations. Following daily in ICU rounds. Monitor tube feeding initiation, tolerance, wt, labs. Follow daily in ICU rounds and follow up every Friday and Friday. .
[2024-02-02 12:07] LABS: Glucose Point of Care 134 mg/dl (65-105)
--- NOTE | 2024-02-02 14:23 | PC.NURSE ---
1400-Patient taken to manager lab per bed for IVC filter placement.
--- NOTE | 2024-02-02 15:17 | PC.NURSE ---
Back to room ICU 8 after procedure in blood and plasma laboratory assistant.
--- NOTE | 2024-02-02 15:54 | P.OP_ITS ---
Procedure Note - Detailed Date of Procedure 02/02/24 Pre-op Diagnosis Right lower extremity DVT, pulmonary embolus, GI bleeding. Post-op Diagnosis Same Procedure Performed Placement of Ro inferior vena cava filter via right femoral vein approach with intraoperative fluoroscopy. Surgeon Manish Linares MD Anesthesia Local Indications Patient is a 68-year-old female who was admitted to the hospital with pneumonia. She respiratory failure and was intubated. She is recently extubated. She also had a pulmonary embolus was found to have right lower extremity DVT. She was started on systemic anticoagulation was started having GI bleeding and so this was stopped. Because of the right lower extremity DVT and the pulmonary embolus the contraindication to systemic anticoagulation with GI bleeding she presents now for placement of a IVC filter. Findings The IVC filter was placed via right femoral vein approach. It was placed with the filter centered on the L3 vertebral body. It deployed successfully without any tipping. Description of Procedure After informed consent was obtained patient was brought to the cardiac catheterization angiogram suite. She was then placed onto the procedure room table. The bilateral groin regions were then prepped and draped usual sterile fashion. A time-out was then performed correctly identifying the patient as well as the procedure to be performed. She was not given any IV antibiotics. 10cc of 1% lidocaine was injected just medial to the palpable left femoral pulse. I then attempted to cannulate the left femoral vein percutaneously with in a long 18gauge needle. Was able to cannulate a vascular structure and initially there was some dark venous appearing blood coming from this vessel. I attempted passage of a guidewire up through the needle into the vessel. There was too much resistance to suggest that this was in the right place and so I removed the guidewire and the needle from the vessel. There was bleeding that was more pulsatile this time. I then held pressure on this area for several minutes to achieve hemostasis. At this point I then turned my approach to cannulating the right femoral vein. 10cc of 1% lidocaine was then injected just medial to the right artery pulse. This time I then used a long 18gauge needle to cannulate the right femoral vein on the 1st pass any difficulty. There was prompt return of dark venous appearing blood. Guidewire was advanced through the needle into the right femoral vein and subsequent to the right iliac vein into the inferior vena cava. Intraoperative fluoroscopy with C-arm was used and the guidewire was in the proper position on fluoroscopy. I then enlarged the skin opening at the insertion site of the guidewire utilizing a scalpel. Dilators were advanced over the guidewire to enlarge to be not a me. Lastly the deploying she and dilator were advanced over the guidewire. Utilizing intraoperative fluoroscopy I visualize the sheath. The guidewire was removed as was the dilator leaving the sheath in place. I then injected saline solution and then followed this with about 20cc of Visipaque IV contrast. The right renal vein seemed to be coming off the IVC at the level of the body of T12 and L1. Pulled the tip of the sheath back to the body of L3 with fluoroscopy. I then confirmed that I was above the bifurcation of the inferior vena cava to the iliac veins and then proceeded to advance the Graham filter through that applying sheath with the pushing idalia. Visualize deployment of the IVC filter in real-time. Filter was deployed centered on the L3 vertebral body in the inferior vena cava. There was no tipping of the filter. A completion venogram was then performed with another 20cc of IV contrast dye. The sheath was then removed and pressure was held on the area of the right femoral vein to achieve hemostasis. I then placed a 4-0 Vicryl suture the skin level to close the small puncture site. Skin glue was then applied. There appeared to be a small lupis maikel forming in the left groin region. Pressure was then held on this area for another 10 to 15 minutes. The patient tolerated the procedure well no complications. All sponges, needles, and instrument counts were correct at the end procedure. EBL was _30__cc. The patient was awakened and taken to recovery in stable and satisfactory condition. Implants Done all E inferior vena cava filter placed via the right femoral vein approach centered on the L3 vertebral body in the inferior vena cava. Estimated Blood Loss 30 Urine Output 425 Drains No Packing No Pathology None sent Complications No immediate complications Condition Stable Disposition PACU [facility] Billing Surgery - Charge Forward: Surgery Billing
[2024-02-02] MEDS: ACETAMINOPHEN ELIXIR 325 MG/10.15 ML UDC 650 MG (16:09)
--- NOTE | 2024-02-02 22:02 | PC.NURSE ---
Tamra Mares LIGHTER called per patient request for something for sleep. 3mg melatonin ordered HS PRN.
[2024-02-02] MEDS: MELATONIN 3 MG TABLET PO (22:19)
[2024-02-03] VITALS (57 sets, daily range): BP systolic 103–150; BP diastolic 46–86; PULSE 55–75; RESP 15–26; TEMP 37.1–37.7; O2SAT 91–100
[2024-02-03 00:09] LABS: Glucose Point of Care 125 mg/dl (65-105)
[2024-02-03 00:09] LABS: Glucose Point of Care 150 mg/dl (65-105)
[2024-02-03] MEDS: ACETAMINOPHEN 325 MG TABLET 650 MG PO ×3 (01:38→10:13)
[2024-02-03] MEDS: IPRATROPIUM 0.5 MG/ALBUTEROL SULFATE 2.5 MG AMPUL.NEB 3 ML INHALATION ×4 (02:36→21:07)
[2024-02-03] MEDS: AMPICILLIN SULB 3 GM/NS 100 ML 3 GM/100 ML VIAL IVPB ×4 (03:50→21:07)
[2024-02-03 04:18] LABS: Hematocrit 25.5 % (37.0-47.0); Hemoglobin 8.1 g/dL (12.0-15.0); Mean Corpuscular HGB Conc 31.8 g/dl (32-36); Mean Corpuscular Hemoglobin 31.2 pg (26-34); Mean Corpuscular Volume 98.1 fl (80-100); Mean Platelet Volume 10.5 fl (7.4-10.4); Platelet Count Result 299 k/mm3 (150-375); Red Cell Distribution Width 14.7 % (11.5-14.5); White Blood Count 10.3 K/mm3 (4.5-10.0)
[2024-02-03 04:35] LABS: Alanine Aminotransferase 91 U/L (6-35); Albumin Level 3.2 g/dL (3.5-5.1); Alkaline Phosphatase 166 U/L (38-126); Anion Gap 7 mmol/L (4-12); Aspartate Amino Transferase 132 U/L (14-36); Blood Urea Nitrogen 24 mg/dL (7-17); Calcium 7.7 mg/dL (8.4-10.2); Carbon Dioxide 28 mmol/L (22-30); Chloride 103 mmol/L (98-107); Estimated CRCL calculation 35 ml/min; Estimated Glomerular Filt Rate 44; Glucose 120 mg/dL (65-110); Magnesium 1.7 mg/dL (1.6-2.3); Potassium 3.4 mmol/L (3.4-5.0); Sodium 138 mmol/L (137-145)
[2024-02-03] MEDS: LEVOTHYROXINE SODIUM 112 MCG TABLET PO (06:20)
[2024-02-03] MEDS: CLOPIDOGREL BISULFATE 75 MG TABLET PO (08:36)
[2024-02-03] MEDS: ASPIRIN 81 MG CHEWABLE TABLET PO (08:36)
[2024-02-03] MEDS: POTASSIUM CHLORIDE 20 MEQ PACKET (FOR LIQUID) 40 MEQ PO (08:36)
[2024-02-03] MEDS: ATORVASTATIN 40 MG TABLET PO (08:36)
[2024-02-03] MEDS: EPOETIN ALFA-EPBX 10,000 UNITS/ML VIAL 10000 UNITS SUB-Q (08:37)
[2024-02-03] MEDS: PANTOPRAZOLE SODIUM IV 40 MG VIAL IV PUSH ×2 (08:37→21:08)
--- NOTE | 2024-02-03 08:48 | P.PNINT_ITS ---
Progress Note: A&P Assessment and Plan (1) Acute respiratory failure: Code(s): J96.00 - Acute respiratory failure, unspecified whether with hypoxia or hypercapnia Status: Acute Assessment and Plan: Acute Respiratory failure secondary to pneumonia and PE. Patient appears to have developed ARDS Patient had became CPAP dependent 100% FiO2. 01/20 patient intubated for discussion with the patient and her daughter. ABG reviewed and low tidal volume ventilation. PEEP set at 12 tidal volume at 300 mL. FiO2 is 100%. Increase respiratory rate to 26 Post intubation patient was coughing and gagging leading to desaturation hence was given rocuronium. Patient was started on Nimbex infusion along with sedation at this time. Patient was placed in prone position CT scan done yesterday showed IMPRESSION: Worsening respiratory status with bibasilar consolidation and interstitial thickening with patchy groundglass opacification bilaterally -findings suggesting ARDS. Status post steroids for pneumonia and ARDS Status post Nimbex 01/25: Started dialysis with removal of 1066 mL in fluid removal -Continue Bronchodilators 01/28: Diuresed well with Bumex with 1400 mL in negative fluid balance 01/29: Discussed with Nephrology, diuresed well with Bumex with approximately 1600 mL in negative fluid balance 01/30: Chest x-ray - Stable or mildly improved extensive bilateral pulmonary infiltrates, most prominent in the lower lobes, especially left lower lobe. 01/30: Patient was placed on SBT, did very well, are is be eyes were 20s to 30s, post SBT ABG load good, patient was extubated only to require oxygen later in the evening and was placed on high-flow therapy Remains on high-flow therapy, 45% FiO2 and 40 L flow rate. Incentive spirometry Up to chair (2) Septic shock: Code(s): A41.9 - Sepsis, unspecified organism; R65.21 - Severe sepsis with septic shock Status: Acute Assessment and Plan: Secondary to pneumonia 01/17: Patient presented with hypotension, elevated lactic acid levels, fevers, cough, hypoxia -received 30 mL/kg IV fluids -started on Levophed via femoral central line - Off IV fluids vasopressors now -01/17: Blood cultures have been obtained and negative till now MRSA screen negative Urine pneumococcal antigen negative Urine Legionella antigen pending Influenza RSV and COVID PCR negative 01/22: Sputum cultures growing MRSA, -continue vancomycin for a course of 10 days 01/26 Flagyl and ceftriaxone discontinued 01/28: Patient has been febrile with a T-max of 101.3?, 01/28: Blood, and sputum cultures negative so far 01/28: Urine cultures with no growth -01/30 CT brain, showed Moderate mucoperiosteal thickening of the left sphenoid sinus and partial opacification of mastoid air cells bilaterally -given patient continues to have low-grade fevers, started patient on Unasyn for possible sinusitis (01/30) (3) Community acquired pneumonia: Qualifiers: Laterality: left Lung location: lower lobe of lung Qualified Code(s): J18.9 - Pneumonia, unspecified organism Code(s): J18.9 - Pneumonia, unspecified organism Status: Acute Assessment and Plan: See above (4) Diabetes: Code(s): E11.9 - Type 2 diabetes mellitus without complications Status: Acute Assessment and Plan: Uncontrolled Continue Accu-Cheks and sliding scale insulin (5) Acute kidney injury: Code(s): N17.9 - Acute kidney failure, unspecified Status: Acute Assessment and Plan: Patient initially presented with Acute kidney injury likely related to hypotension, septic shock She was adequately fluid-resuscitated and came off of IV fluids Creatinine normalized initially Patient did receive contrast for CTA Creatinine increased post intubation. 01/22 Lasix IV x1 Patient was given 25% albumin and will give 5% albumin. Will avoid liberal fluids due to patient's respiratory status. Patient is positive her I/O balance 01/25: Creatinine continues to increase along with elevated BUN today. Urine o utput also decreasing. Dr Dunbar discussed with nephrology and family will plan to initiate dialysis. Temporary dialysis catheter placed after obtaining consent from patient's family. Discussed with nephrology. [employer] Set Up Operator will arrange for dialysis 01/25: Started dialysis with 1066 mL in fluid removal 01/26: Dialysis with 883 mL in fluid removal 01/27: Dialysis with 3000 mL in fluid removal 01/28: Diuresed with Bumex with good urine output and approx 1400 mL in negative fluid balance 01/29: Diuresis with Bumex with good urine output and approx 1600 mL in negative fluid balance 01/30: Diuresis Bumex with good urine output in approximately 2000 mL in negative fluid balance 01/31: Discussed with Nephrology, will hold diuresis today since patient's potassium is low and being repleted. If she does not have good urine output during the end of the day will diurese with Bumex per Nephrology 02/02: Urine output electrolytes reviewed. Creatinine stable good urine output. Further management by Nephrology (6) Pulmonary embolism: Code(s): I26.99 - Other pulmonary embolism without acute cor pulmonale Status: Acute Assessment and Plan: 01/18: Venous Dopplers negative 01/26: Heparin infusion is being held due to anemia and hematuria and drop in hemoglobin -will continue to monitor hemoglobin levels, if remains stable, may start Lovenox 1 mg/kg daily starting 01/27 01/27: Hemoglobin 7.0 this morning, will continue to hold anticoagulation, status post 1 unit of packed RBC 01/29: Remains febrile, venous Dopplers: Small amount of nonocclusive deep venous thrombosis at the right common femoral vein reported site of a recently removed central venous catheter. No other deep venous thrombosis in the remainder of the bilateral lower limbs. -patient did not tolerate anticoagulation for a small PE, appreciate surgical evaluation, IVC filter placed on 02/02/202401/17: CT chest abdomen and pelvis IMPRESSION: Nonocclusive acute subsegmental pulmonary embolus in the left lower lobe. Very small clot burden. No evidence of right heart strain. Left lower lobe pneumonia. Mild hepatomegaly. Possible cystitis. Otherwise, no acute abdominopelvic process detected. Echo Summary 1. Left ventricular systolic function is normal, estimated at 55-60%. 2. There is mildly increased left ventricular wall thickness. 3. The left ventricular diastolic function is grade I diastolic dysfunction. 4. There is trace mitral valve regurgitation. 5. There is trace tricuspid valve regurgitation. 6. No pulmonary hypertension, estimated pulmonary arterial systolic pressure is 41 mmHg. 7. Right ventricular systolic function is normal. 8. Right ventricular chamber dimension is normal. (7) Electrolyte abnormality: Code(s): E87.8 - Other disorders of electrolyte and fluid balance, not elsewhere classified Status: Acute Assessment and Plan: Replace low potassium (8) Diverticulitis: Code(s): K57.92 - Diverticulitis of intestine, part unspecified, without perforation or abscess without bleeding Status: Acute Assessment and Plan: CT abdomen pelvis showed Mural thickening within the rectosigmoid colon with multiple diverticula and prominence of the vasa recta, possibly early diverticulitis. Interval development of perihepatic fluid, compared with previous study. Status post ceftriaxone and Flagyl (9) Ileus: Code(s): K56.7 - Ileus, unspecified Status: Acute Assessment and Plan: Patient is now off tube feeds. Diet ordered (10) Anemia: Code(s): D64.9 - Anemia, unspecified Status: Acute Assessment and Plan: Patient's hemoglobin has gradually trended down over last 4-5 days. She is on heparin infusion for PE. There has been no evidence of bleeding. Continue monitor this time. Transfuse if hemoglobin less than 7. Platelets are at acceptable level. She is also on aspirin Plavix for coronary disease She is on Protonix twice a day 01/26: Hemoglobin dropped to 7.1, will hold heparin infusion. Monitor hemoglobin levels and if the improved restart either heparin infusion or Lovenox 1 mg/kg daily 01/27: Hemoglobin 7.0 this morning, status post 1 unit of packed RBCs with hemodialysis, continue to hold anticoagulation Hemoglobin remains stable at this time, anticoagulation continues to be on hold (11) Encephalopathy: Code(s): G93.40 - Encephalopathy, unspecified Status: Acute Assessment and Plan: Patient is now awake, alert, oriented x3, will discontinue Precedex infusion 01/30: CT brain Cerebral atherosclerosis and chronic small vessel ischemic changes of the cerebral white matter No acute intracranial finding Moderate mucoperiosteal thickening of the left sphenoid sinus and partial opacification of mastoid air cells bilaterally Plan DVT prophylaxis: Heparin infusion has been stopped due to drop in hemoglobin, continue SCDs patient has IVC filter Stress ulcer prophylaxis: Protonix IV q.12 hours Nutrition: Modified diet ordered after speech evaluation Code status: full code Transfer out of ICU today Incentive spirometry, PT OT, up in chair Subjective Date/time seen: 02/03/24 Overnight events reviewed. Afebrile Continues to be on Airvo but oxygen requirement decreased to 40 L and 45% FiO2 Good urine output Not on any infusions Other Vitals acceptable No new complaints Interval history: 68yo female with HTN, CHF, DM and HLD with PE pneumonia acute respiratory failure ARDS acute kidney injury 01/29: Venous Dopplers: Small amount of nonocclusive deep venous thrombosis at the right common femoral vein reported site of a recently removed central venous catheter. No other deep venous thrombosis in the remainder of the bilateral lower limbs. 11/30: Extubated Review of Systems Review of Systems: All systems reviewed & are unremarkable except as noted in HPI and below Exam Narrative: General: Patient is awake, confused, in no acute distress HEENT:? Pupils equal and reactive, sclerae is clear, high-flow therapy cannula Neck:? Supple Respiratory:? Coarse breath sounds bilaterally, decreased at bases, no wheezing Cardiac:? S1-S2 was normal, regular rate and rhythm Abdomen:? Soft, non distended, no tenderness, hypoactive bowel sounds, Extremities:? No edema, palpable pedal pulses Neuro:? Patient is awake, alert,, oriented x3, follows simple commands in all extremities, answers questions Skin:? Warm and dry Objective Data Vital Signs Vital Signs: Vital Signs - 24 hr 02/02/24 10:00 02/02/24 10:00 02/02/24 11:06 Temperature 37.2 C Pulse Rate 60 60 Respiratory Rate 23 H Blood Pressure 153/59 H Pulse Oximetry 97 96 Oxygen Delivery High Flow Therapy with Na Oxygen Flow Rate 60 Fraction of Inspired Oxygen 50 02/02/24 12:00 02/02/24 12:00 02/02/24 12:00 Temperature 37.6 C H Pulse Rate 65 65 85 Respiratory Rate 22 H 22 H Blood Pressure 148/64 H Pulse Oximetry 97 97 Oxygen Delivery High Flow Therapy with Na Oxygen Flow Rate 60 Fraction of Inspired Oxygen 50 02/02/24 13:06 02/02/24 13:06 02/02/24 13:13 Temperature Pulse Rate 64 67 Respiratory Rate 26 H 24 H Blood Pressure Pulse Oximetry 97 Oxygen Delivery High Flow Therapy with Na Oxygen Flow Rate 60 Fraction of Inspired Oxygen 50 02/02/24 15:15 02/02/24 15:15 02/02/24 15:30 Temperature 37.7 C H Pulse Rate 64 60 Respiratory Rate 22 H Blood Pressure 138/59 L Pulse Oximetry 93 92 Oxygen Delivery High Flow Therapy with Na Oxygen Flow Rate 60 Fraction of Inspired Oxygen 50 02/02/24 16:00 02/02/24 16:00 02/02/24 16:00 Temperature 37.6 C H Pulse Rate 63 60 60 Respiratory Rate 22 H 22 H Blood Pressure 150/57 H Pulse Oximetry 97 97 Oxygen Delivery High Flow Therapy with Na Oxygen Flow Rate 60 Fraction of Inspired Oxygen 50 02/02/24 16:40 02/02/24 18:00 02/02/24 18:00 Temperature 37.7 C H Pulse Rate 67 64 Respiratory Rate 22 H Blood Pressure 141/62 H Pulse Oximetry 99 97 Oxygen Delivery High Flow Therapy with Na Oxygen Flow Rate 60 Fraction of Inspired Oxygen 50 02/02/24 20:27 02/02/24 20:34 02/02/24 20:35 Temperature Pulse Rate 65 65 65 Respiratory Rate 26 H 24 H Blood Pressure Pulse Oximetry 97 Oxygen Delivery High Flow Therapy with Na Oxygen Flow Rate 60 Fraction of Inspired Oxygen 50 02/02/24 20:00 02/02/24 20:00 02/02/24 20:00 Temperature 37.7 C H Pulse Rate 64 97 63 Respiratory Rate 18 18 Blood Pressure 135/55 L Pulse Oximetry 97 97 Oxygen Delivery High Flow Therapy with Na Oxygen Flow Rate 60 Fraction of Inspired Oxygen 50 02/02/24 22:00 02/02/24 22:00 02/02/24 19:07 Temperature 37.6 C H 37.7 C H Pulse Rate 68 69 68 Respiratory Rate 16 22 H Blood Pressure 145/56 H Pulse Oximetry 96 97 Oxygen Delivery Oxygen Flow Rate Fraction of Inspired Oxygen 02/02/24 19:15 02/02/24 19:16 02/02/24 19:30 Temperature 37.7 C H 37.7 C H 37.7 C H Pulse Rate 70 68 68 Respiratory Rate 19 26 H 18 Blood Pressure 136/59 L 125/61 Pulse Oximetry 98 96 95 Oxygen Delivery Oxygen Flow Rate Fraction of Inspired Oxygen 02/02/24 19:31 02/02/24 19:46 02/02/24 19:49 Temperature 37.7 C H 37.7 C H 37.8 C H Pulse Rate 69 63 65 Respiratory Rate 30 H 25 H 23 H Blood Pressure 143/52 H Pulse Oximetry 97 97 Oxygen Delivery Oxygen Flow Rate Fraction of Inspired Oxygen 02/02/24 20:00 02/02/24 20:08 02/02/24 20:15 Temperature 37.7 C H 37.7 C H 37.7 C H Pulse Rate 66 63 65 Respiratory Rate 26 H 23 H 22 H Blood Pressure 135/55 L 142/59 H Pulse Oximetry 97 97 96 Oxygen Delivery Oxygen Flow Rate Fraction of Inspired Oxygen 02/02/24 20:16 02/02/24 20:30 02/02/24 20:31 Temperature 37.7 C H 37.7 C H 37.7 C H Pulse Rate 64 69 64 Respiratory Rate 26 H 20 20 Blood Pressure 133/62 Pulse Oximetry 96 97 97 Oxygen Delivery Oxygen Flow Rate Fraction of Inspired Oxygen 02/02/24 20:45 02/02/24 20:46 02/02/24 21:00 Temperature 37.7 C H 37.7 C H 37.7 C H Pulse Rate 64 64 63 Respiratory Rate 28 H 26 H 27 H Blood Pressure 151/65 H 130/55 L Pulse Oximetry 97 96 96 Oxygen Delivery Oxygen Flow Rate Fraction of Inspired Oxygen 02/02/24 21:01 02/02/24 21:15 02/02/24 21:16 Temperature 37.7 C H 37.7 C H 37.7 C H Pulse Rate 62 65 62 Respiratory Rate 26 H 27 H 20 Blood Pressure 127/60 Pulse Oximetry 95 96 96 Oxygen Delivery Oxygen Flow Rate Fraction of Inspired Oxygen 02/02/24 21:30 02/02/24 21:31 02/02/24 22:33 Temperature 37.6 C H 37.6 C H 37.6 C H Pulse Rate 66 65 60 Respiratory Rate 25 H 28 H 25 H Blood Pressure 130/51 L Pulse Oximetry 95 96 99 Oxygen Delivery Oxygen Flow Rate Fraction of Inspired Oxygen 02/02/24 22:45 02/02/24 22:46 02/02/24 23:00 Temperature 37.6 C 37.6 C 37.5 C Pulse Rate 59 L 61 63 Respiratory Rate 24 H 19 19 Blood Pressure 141/81 H 142/63 H Pulse Oximetry 99 98 98 Oxygen Delivery Oxygen Flow Rate Fraction of Inspired Oxygen 02/02/24 23:01 02/02/24 23:15 02/02/24 23:16 Temperature 37.5 C 37.4 C 37.4 C Pulse Rate 66 65 63 Respiratory Rate 26 H 25 H 26 H Blood Pressure 134/61 Pulse Oximetry 97 97 98 Oxygen Delivery Oxygen Flow Rate Fraction of Inspired Oxygen 02/02/24 23:30 02/02/24 23:31 02/02/24 23:45 Temperature 37.4 C 37.4 C 37.3 C Pulse Rate 63 64 63 Respiratory Rate 19 19 24 H Blood Pressure 149/61 H 144/57 H Pulse Oximetry 99 98 98 Oxygen Delivery Oxygen Flow Rate Fraction of Inspired Oxygen 02/02/24 23:46 02/03/24 00:00 02/03/24 00:01 Temperature 37.3 C 37.2 C 37.2 C Pulse Rate 62 60 62 Respiratory Rate 19 24 H 25 H Blood Pressure 141/53 H Pulse Oximetry 98 97 96 Oxygen Delivery Oxygen Flow Rate Fraction of Inspired Oxygen 02/03/24 00:00 02/03/24 00:00 02/03/24 02:00 Temperature Pulse Rate 62 67 60 Respiratory Rate 25 H Blood Pressure Pulse Oximetry 96 Oxygen Delivery High Flow Therapy with Na Oxygen Flow Rate 50 Fraction of Inspired Oxygen 46 02/03/24 02:00 02/03/24 02:36 02/03/24 01:30 Temperature Pulse Rate 60 59 L Respiratory Rate 21 H 18 Blood Pressure 136/56 L Pulse Oximetry 98 98 Oxygen Delivery High Flow Therapy with Na Oxygen Flow Rate 50 Fraction of Inspired Oxygen 48 02/03/24 02:47 02/03/24 02:47 02/03/24 04:00 Temperature Pulse Rate 57 L 56 L 65 Respiratory Rate 20 21 H Blood Pressure Pulse Oximetry 97 98 Oxygen Delivery High Flow Therapy with Na High Flow Therapy with Na Oxygen Flow Rate 40 40 Fraction of Inspired Oxygen 45 45 02/03/24 00:02 02/03/24 00:15 02/03/24 00:16 Temperature 37.2 C 37.2 C 37.2 C Pulse Rate 61 60 61 Respiratory Rate 25 H 24 H 24 H Blood Pressure 131/54 L Pulse Oximetry 96 96 97 Oxygen Delivery Oxygen Flow Rate Fraction of Inspired Oxygen 02/03/24 00:30 02/03/24 00:31 02/03/24 00:45 Temperature 37.2 C 37.2 C 37.2 C Pulse Rate 66 66 66 Respiratory Rate 22 H 25 H 24 H Blood Pressure 124/54 L 132/58 L Pulse Oximetry 96 95 95 Oxygen Delivery Oxygen Flow Rate Fraction of Inspired Oxygen 02/03/24 00:46 02/03/24 01:00 02/03/24 01:01 Temperature 37.2 C 37.2 C 37.2 C Pulse Rate 63 63 64 Respiratory Rate 23 H 26 H 26 H Blood Pressure 128/50 L Pulse Oximetry 97 97 96 Oxygen Delivery Oxygen Flow Rate Fraction of Inspired Oxygen 02/03/24 01:15 02/03/24 01:16 02/03/24 01:30 Temperature 37.1 C 37.1 C 37.1 C Pulse Rate 65 64 65 Respiratory Rate 21 H 24 H 20 Blood Pressure 128/56 L Pulse Oximetry 95 96 97 Oxygen Delivery Oxygen Flow Rate Fraction of Inspired Oxygen 02/03/24 01:44 02/03/24 01:45 02/03/24 01:46 Temperature 37.1 C 37.1 C 37.1 C Pulse Rate 59 L 61 60 Respiratory Rate 19 21 H 23 H Blood Pressure 123/56 L 134/55 L Pulse Oximetry 97 98 98 Oxygen Delivery Oxygen Flow Rate Fraction of Inspired Oxygen 02/03/24 02:00 02/03/24 02:01 02/03/24 02:15 Temperature 37.1 C 37.1 C 37.1 C Pulse Rate 61 63 68 Respiratory Rate 20 26 H 23 H Blood Pressure 136/56 L Pulse Oximetry 98 98 98 Oxygen Delivery Oxygen Flow Rate Fraction of Inspired Oxygen 02/03/24 02:16 02/03/24 02:30 02/03/24 02:31 Temperature 37.1 C 37.1 C 37.1 C Pulse Rate 60 62 62 Respiratory Rate 20 21 H 20 Blood Pressure 147/59 H 142/61 H Pulse Oximetry 98 97 97 Oxygen Delivery Oxygen Flow Rate Fraction of Inspired Oxygen 02/03/24 02:45 02/03/24 02:46 02/03/24 03:00 Temperature 37.1 C 37.1 C 37.1 C Pulse Rate 58 L 57 L 58 L Respiratory Rate 18 20 20 Blood Pressure 135/57 L 128/49 L Pulse Oximetry 98 99 97 Oxygen Delivery Oxygen Flow Rate Fraction of Inspired Oxygen 02/03/24 03:01 02/03/24 03:15 02/03/24 03:16 Temperature 37.1 C 37.1 C 37.1 C Pulse Rate 59 L 61 67 Respiratory Rate 19 21 H 20 Blood Pressure 137/51 L Pulse Oximetry 96 93 94 Oxygen Delivery Oxygen Flow Rate Fraction of Inspired Oxygen 02/03/24 03:30 02/03/24 03:31 02/03/24 03:45 Temperature 37.2 C 37.2 C 37.1 C Pulse Rate 61 59 L 65 Respiratory Rate 17 20 25 H Blood Pressure 143/56 H Pulse Oximetry 94 94 94 Oxygen Delivery Oxygen Flow Rate Fraction of Inspired Oxygen 02/03/24 03:46 02/03/24 04:00 02/03/24 04:01 Temperature 37.1 C 37.2 C 37.2 C Pulse Rate 71 62 61 Respiratory Rate 16 21 H 15 Blood Pressure 142/55 H 124/46 L Pulse Oximetry 93 95 95 Oxygen Delivery Oxygen Flow Rate Fraction of Inspired Oxygen 02/03/24 04:15 02/03/24 04:16 02/03/24 05:29 Temperature 37.1 C 37.1 C Pulse Rate 59 L 62 60 Respiratory Rate 21 H 18 Blood Pressure 103/86 Pulse Oximetry 98 98 95 Oxygen Delivery High Flow Therapy with Na Oxygen Flow Rate 40 Fraction of Inspired Oxygen 45 02/03/24 04:00 02/03/24 06:00 02/03/24 06:00 Temperature Pulse Rate 61 64 64 Respiratory Rate 18 Blood Pressure 120/48 L Pulse Oximetry 99 Oxygen Delivery Oxygen Flow Rate Fraction of Inspired Oxygen 02/03/24 07:47 02/03/24 07:47 02/03/24 07:55 Temperature Pulse Rate 66 60 Respiratory Rate 18 18 Blood Pressure Pulse Oximetry 94 Oxygen Delivery High Flow Therapy with Na Oxygen Flow Rate 40 Fraction of Inspired Oxygen 45 Intake/Output Intake/Output: Intake & Output 01/31/24 02/01/24 02/02/24 02/03/24 23:59 23:59 23:59 23:59 Intake Total 1595.9 1670.4 1664.5 600 Output Total 3650 1550 1975 700 Balance -2054.1 120.4 -310.5 -100 Meds/Results Medications: Active Medications Generic Name Dose Route Start Last Admin Trade Name Freq PRN Reason Stop Dose Admin Acetaminophen 650 mg 01/20/24 10:08 02/03/24 06:20 Acetaminophen 325 Mg Tablet PO 650 mg Q4H PRN Administration Mild Pain (1-3) or Fever Albuterol/Ipratropium 3 ml 01/22/24 14:00 02/03/24 07:47 Ipratropium 0.5 Mg/Albuterol Sulfate 2.5 Mg Ampul.Neb 3 Ml INHALATION 3 ml Q6HRT EDMOND Administration Aspirin 81 mg 01/19/24 08:00 02/03/24 08:36 Aspirin 81 Mg Chewable Tablet PO 81 mg DAILY@0800 EDMOND Administration Atorvastatin Calcium 40 mg 01/19/24 09:00 02/03/24 08:36 Atorvastatin 40 Mg Tablet PO 40 mg DAILY EDMOND Administration Clopidogrel Bisulfate 75 mg 01/19/24 09:00 02/03/24 08:36 Clopidogrel Bisulfate 75 Mg Tablet PO 75 mg DAILY EDMOND Administration Dextrose 12.5 gm 01/18/24 23:28 Dextrose 50% 25 Gm/50 Ml Syringe IV PUSH PRN PRN Hypoglycemia Protocol Epoetin Ronnell-epbx 10,000 units 01/31/24 13:30 02/03/24 08:37 Epoetin Ronnell-Epbx 10,000 Units/Ml Vial SUB-Q 10,000 units TUTHSA@09 EDMOND Administration Glucagon 1 mg 01/18/24 23:28 Glucagon For Inj 1 Mg Vial IM PRN PRN Hypoglycemia Protocol Glucose 15 gm 01/18/24 23:28 Glucose Oral Gel 15 Gm Of Glucse In 37.5 Gm Tube PO PRN PRN Hypoglycemia Protocol Dextrose 1,000 mls @ 100 mls/hr 01/18/24 23:28 Dextrose 5% 1,000 Ml IVPB PRN PRN Hypoglycemia Protocol Albumin Human 50 mls @ 999 mls/hr 01/26/24 11:40 01/27/24 09:51 Albutein IVPB 02/25/24 11:39 999 mls/hr Q10M PRN Administration HYPOTENSION Ampicillin Sodium/Sulbactam Sodium 3 gm in 100 mls @ 200 mls/hr 01/31/24 15:00 02/03/24 08:37 Unasyn 3 Gm/Ns 100 Ml IVPB 200 mls/hr Q6H EDMOND Administration Vancomycin HCl 1,000 mg in 250 mls @ 250 mls/hr 02/01/24 10:00 02/02/24 11:00 Vancomycin 1,000 Mg/Ns 250 Ml IVPB 02/04/24 23:59 Infused Q24H [facility] Infusion Insulin Aspart 4 - 8 units 01/19/24 12:00 02/03/24 08:36 Insulin Aspart (*Bkc) 100 Units/Ml SUB-Q Not Given Q4H [facility] Protocol Insulin Glargine 75 units 02/01/24 09:00 Insulin Glargine (*Bkc) 100 Units/Ml SUB-Q QAM [facility] Levothyroxine Sodium 112 mcg 01/19/24 06:30 02/03/24 06:20 Levothyroxine Sodium 112 Mcg Tablet PO 112 mcg DAILY@0630 EDMOND Administration Melatonin 3 mg 02/02/24 22:00 02/02/24 22:19 Melatonin 3 Mg Tablet PO 3 mg HS PRN Administration Insomnia Ondansetron HCl 4 mg 01/18/24 22:13 Ondansetron Inj 4 Mg/2 Ml Vial IV PUSH Q4H PRN Nausea Pantoprazole Sodium 40 mg 01/19/24 09:00 02/03/24 08:37 Pantoprazole Sodium Iv 40 Mg Vial IV PUSH 40 mg Q12HR EDMOND Administration Polyethylene Glycol 17 gm 01/29/24 10:19 Polyethylene Glycol 3350 17 Gm Powd.Pack PO QAM PRN Constipation Potassium Chloride 40 meq 02/03/24 09:00 02/03/24 08:36 Potassium Chloride 20 Meq Packet (For Liquid) PO 40 meq DAILY EDMOND Administration Radiology Results: ITS Impressions Chest/Abdomen/Pelvis CTA 01/18/24 18:30 IMPRESSION: Nonocclusive acute subsegmental pulmonary embolus in the left lower lobe. Very small clot burden. No evidence of right heart strain. Left lower lobe pneumonia. Mild hepatomegaly. Possible cystitis. Otherwise, no acute abdominopelvic process detected. Chest/Abdomen/Pelvis CT 01/22/24 12:43 IMPRESSION: Worsening respiratory status with bibasilar consolidation and interstitial thickening with patchy groundglass opacification bilaterally -findings suggesting ARDS. Mural thickening within the rectosigmoid colon with multiple diverticula and prominence of the vasa recta, possibly early diverticulitis. Interval development of perihepatic fluid, compared with previous study. Renal Ultrasound 01/24/24 12:05 IMPRESSION: 1. Normal kidneys without hydronephrosis. Abdomen X-Ray 01/25/24 14:53 IMPRESSION: NG tube in distal stomach Nonspecific abdomen Venous Doppler Study 01/30/24 14:52 IMPRESSION: 1. Small amount of nonocclusive deep venous thrombosis at the right common femoral vein reported site of a recently removed central venous catheter. No other deep venous thrombosis in the remainder of the bilateral lower limbs. Head CT 01/31/24 08:55 IMPRESSION: Cerebral atherosclerosis and chronic small vessel ischemic changes of the cerebral white matter No acute intracranial finding Moderate mucoperiosteal thickening of the left sphenoid sinus and partial opacification of mastoid air cells bilaterally Chest X-Ray 02/03/24 06:03 Impression: Stable patchy airspace disease with underlying chronic interstitial disease. Correlate for superimposed pneumonia or pulmonary edema. Stable support line. Labs Labs: Laboratory Results - last 24 hr 02/02/24 02/02/24 02/03/24 12:03 20:55 00:03 WBC RBC Hgb Hct MCV MCH MCHC RDW Plt Count MPV Sodium Potassium Chloride Carbon Dioxide Anion Gap BUN Creatinine Estim Creat Clear Calc Estimated GFR Glucose POC Capillary Glucose 134 H 150 H 125 H Calcium Magnesium Total Bilirubin AST ALT Alkaline Phosphatase Total Protein Albumin 02/03/24 04:01 WBC 10.3 H RBC 2.60 L Hgb 8.1 L Hct 25.5 L MCV 98.1 MCH 31.2 MCHC 31.8 L RDW 14.7 H Plt Count 299 MPV 10.5 H Sodium 138 Potassium 3.4 Chloride 103 Carbon Dioxide 28 Anion Gap 7 BUN 24 H D Creatinine 1.20 H Estim Creat Clear Calc 35 Estimated GFR 44 L Glucose 120 H POC Capillary Glucose Calcium 7.7 L Magnesium 1.7 Total Bilirubin 1.0 AST 132 H ALT 91 H Alkaline Phosphatase 166 H Total Protein 7.0 Albumin 3.2 L Quality VTE Prophylaxis VTE prophylaxis: pharmacologic ordered (Heparin GGT per protocol)
[2024-02-03 09:04] LABS: Glucose Point of Care 104 mg/dl (65-105)
[2024-02-03 09:59] LABS: Vancomycin Trough 21.8 ug/mL (10.0-20.0)
--- NOTE | 2024-02-03 10:22 | P.PNNP_ITS ---
Progress Note: A&P Assessment and Plan (1) Acute kidney injury: Code(s): N17.9 - Acute kidney failure, unspecified Status: Acute Assessment and Plan: * improving/resolving * initial improvement on admission (from 1.5mg/dl to 0.9mg/dl) * then worsening again noted on 01/21 (up to 1.3mg/dl and subsequently 2.3mg/dl on 01/22) * suspect multifactorial etiology: * contrast exposure * infection/sepsis * hemodynamic instability/shock * possible prerenal factors * diuretic use prior to admission * hypoxia * other(?) * evaluation to date noted: * CPK mildly elevated * UA with blood/protein and possible infection * urine electrolytes prerenal * moderate proteinuria * renal ultrasound w/o obstruction * continues to make good urine output -- responsive to diuretic therapy as well * dialysis on hold * follow trend of repeat lab and UOP (2) Acute respiratory failure: Code(s): J96.00 - Acute respiratory failure, unspecified whether with hypoxia or hypercapnia Status: Acute Assessment and Plan: * resolving * thought to be secondary to a combination of pneumonia and pulmonary embolus +/- pulmonary edema * appears to have progressed to ARDS * was intubated and placed on mechanical ventilation on 01/20 * now extubated - on high flow oxygen therapy * follow respiratory status (3) Septic shock: Code(s): A41.9 - Sepsis, unspecified organism; R65.21 - Severe sepsis with septic shock Status: Acute Assessment and Plan: * as noted on admission - hypotension, lactic acidosis, fevers, and hypoxia/respiratory failure * presumed source = pneumonia +/- diverticulitiis * s/p IVF resuscitation and vasopressor support (weaned off currently) * recent cultures of blood sputum and urine have been negative * on antibiotics (4) Community acquired pneumonia: Qualifiers: Laterality: left Lung location: lower lobe of lung Qualified Code(s): J18.9 - Pneumonia, unspecified organism Code(s): J18.9 - Pneumonia, unspecified organism Status: Acute Assessment and Plan: * based on evidence to date * viral swab for RSV/COVID/influenza negative * follow culture data - negative to date * on antibiotics (5) Pulmonary embolism: Code(s): I26.99 - Other pulmonary embolism without acute cor pulmonale Status: Acute Assessment and Plan: * admission CTA of chest with nonocclusive acute subsegmental PE in the left lower lobe with small clot burden * venous dopplers results noted * anticoagulation currently on hold due to low H/H * s/p IVC filter placement on 02/01 (6) Diverticulitis: Code(s): K57.92 - Diverticulitis of intestine, part unspecified, without perforation or abscess without bleeding Status: Acute Assessment and Plan: * CT abdomen pelvis with mural thickening within the rectosigmoid colon with multiple diverticula and prominence of the vasa recta, possibly early diverticulitis. Interval development of perihepatic fluid, compared with previous study * remains on antibiotics * cultures negative (7) Anemia: Code(s): D64.9 - Anemia, unspecified Status: Acute Assessment and Plan: * presumably due to YESI and acute illness * follow trend of H/H * on Retacrit SQ 3 times a week WHILE HOSPITALIZED (since off dialysis) (8) Diabetes: Code(s): E11.9 - Type 2 diabetes mellitus without complications Status: Acute Assessment and Plan: * On accu-cheks * glycemic control per driller and reamer/hospitalist Not much else to add since renal relatively stable -- will continue to follow intermittently. Subjective Date/time seen: 02/03/24 10:22 Interval history: Follow-up for acute kidney injury/acute renal failure. Appears to be doing fairly well -- s/p IVC filter placement yesterday afternoon and tolerated this procedure reasonably well; renal function/creatinine remains stable with good urine output noted; hemodynamics stable and respiratory status/breathing appears improved if not bit better by oxygen requirements; no issues/events overnight or earlier this morning. Exam Narrative: General: elderly but WD/WN female in NAD Heart: normal S1 and S2; no rub Lungs: coarse breath sounds Abdomen: soft, nontender, nondistended, positive bowel sounds Extremities: no cyanosis or clubbing; no edema Skin: warm and intact Objective Data Vital Signs Vital Signs: Vital Signs Temp Pulse Resp BP Pulse Ox O2 Del Method O2 Flow Rate 02/03/24 10:00 99.1 F 65 24 H 146/62 H 97 02/03/24 10:06 High Flow Therapy with Na 40 02/03/24 09:38 High Flow Therapy with Na 40 02/03/24 07:55 60 18 02/03/24 07:47 66 18 02/03/24 07:47 94 High Flow Therapy with Na 40 02/03/24 06:00 64 18 120/48 L 99 02/03/24 06:00 64 02/03/24 04:00 61 02/03/24 05:29 60 95 High Flow Therapy with Na 40 02/03/24 04:16 98.8 F 62 18 98 02/03/24 04:15 98.8 F 59 L 21 H 103/86 98 02/03/24 04:01 98.9 F 61 15 124/46 L 95 02/03/24 04:00 98.9 F 62 21 H 95 02/03/24 03:46 98.8 F 71 16 142/55 H 93 02/03/24 03:45 98.8 F 65 25 H 94 02/03/24 03:31 98.9 F 59 L 20 143/56 H 94 02/03/24 03:30 98.9 F 61 17 94 02/03/24 03:16 98.8 F 67 20 94 02/03/24 03:15 98.8 F 61 21 H 137/51 L 93 02/03/24 03:01 98.7 F 59 L 19 96 02/03/24 03:00 98.7 F 58 L 20 128/49 L 97 02/03/24 02:46 98.7 F 57 L 20 99 02/03/24 02:45 98.7 F 58 L 18 135/57 L 98 02/03/24 02:31 98.8 F 62 20 142/61 H 97 02/03/24 02:30 98.8 F 62 21 H 97 02/03/24 02:16 98.8 F 60 20 147/59 H 98 02/03/24 02:15 98.8 F 68 23 H 98 02/03/24 02:01 98.8 F 63 26 H 98 02/03/24 02:00 98.8 F 61 20 136/56 L 98 02/03/24 01:46 98.8 F 60 23 H 98 02/03/24 01:45 98.8 F 61 21 H 134/55 L 98 02/03/24 01:44 98.8 F 59 L 19 123/56 L 97 02/03/24 01:30 98.8 F 65 20 97 02/03/24 01:16 98.8 F 64 24 H 96 02/03/24 01:15 98.8 F 65 21 H 128/56 L 95 02/03/24 01:01 98.9 F 64 26 H 96 02/03/24 01:00 98.9 F 63 26 H 128/50 L 97 02/03/24 00:46 98.9 F 63 23 H 97 02/03/24 00:45 98.9 F 66 24 H 132/58 L 95 02/03/24 00:31 98.9 F 66 25 H 124/54 L 95 02/03/24 00:30 98.9 F 66 22 H 96 02/03/24 00:16 99.0 F 61 24 H 97 02/03/24 00:15 99.0 F 60 24 H 131/54 L 96 02/03/24 00:02 99.0 F 61 25 H 96 02/03/24 04:00 65 21 H 98 High Flow Therapy with Na 40 02/03/24 02:47 56 L 97 High Flow Therapy with Na 40 02/03/24 02:47 57 L 20 02/03/24 01:30 98 High Flow Therapy with Na 50 02/03/24 02:36 59 L 18 02/03/24 02:00 60 21 H 136/56 L 98 02/03/24 02:00 60 02/03/24 00:00 67 02/03/24 00:00 62 25 H 96 High Flow Therapy with Na 50 02/03/24 00:01 99.0 F 62 25 H 141/53 H 96 02/03/24 00:00 99.0 F 60 24 H 97 02/02/24 23:46 99.1 F 62 19 98 02/02/24 23:45 99.1 F 63 24 H 144/57 H 98 02/02/24 23:31 99.3 F 64 19 98 02/02/24 23:30 99.3 F 63 19 149/61 H 99 02/02/24 23:16 99.4 F 63 26 H 134/61 98 02/02/24 23:15 99.4 F 65 25 H 97 02/02/24 23:01 99.5 F 66 26 H 97 02/02/24 23:00 99.5 F 63 19 142/63 H 98 02/02/24 22:46 99.6 F 61 19 141/81 H 98 02/02/24 22:45 99.6 F 59 L 24 H 99 02/02/24 22:33 99.7 F H 60 25 H 99 02/02/24 21:31 99.7 F H 65 28 H 96 02/02/24 21:30 99.7 F H 66 25 H 130/51 L 95 02/02/24 21:16 99.8 F H 62 20 96 02/02/24 21:15 99.8 F H 65 27 H 127/60 96 02/02/24 21:01 99.9 F H 62 26 H 95 02/02/24 21:00 99.8 F H 63 27 H 130/55 L 96 02/02/24 20:46 99.9 F H 64 26 H 96 02/02/24 20:45 99.9 F H 64 28 H 151/65 H 97 02/02/24 20:31 99.9 F H 64 20 97 02/02/24 20:30 99.9 F H 69 20 133/62 97 02/02/24 20:16 99.9 F H 64 26 H 96 02/02/24 20:15 99.9 F H 65 22 H 142/59 H 96 02/02/24 20:08 99.9 F H 63 23 H 135/55 L 97 02/02/24 20:00 99.8 F H 66 26 H 97 02/02/24 19:49 100.0 F H 65 23 H 02/02/24 19:46 99.9 F H 63 25 H 143/52 H 97 02/02/24 19:31 99.9 F H 69 30 H 97 02/02/24 19:30 99.9 F H 68 18 125/61 95 02/02/24 19:16 99.9 F H 68 26 H 96 02/02/24 19:15 99.9 F H 70 19 136/59 L 98 02/02/24 19:07 99.9 F H 68 22 H 97 02/02/24 22:00 99.7 F H 69 16 145/56 H 96 02/02/24 22:00 68 02/02/24 20:00 63 02/02/24 20:00 99.9 F H 97 18 135/55 L 97 02/02/24 20:00 64 18 97 High Flow Therapy with Na 60 02/02/24 20:35 65 24 H 02/02/24 20:34 65 97 High Flow Therapy with Na 60 02/02/24 20:27 65 26 H 02/02/24 18:00 64 02/02/24 18:00 99.8 F H 67 22 H 141/62 H 97 02/02/24 16:40 99 High Flow Therapy with Na 60 02/02/24 16:00 99.7 F H 60 22 H 150/57 H 97 02/02/24 16:00 60 02/02/24 16:00 63 22 H 97 High Flow Therapy with Na 60 02/02/24 15:30 92 High Flow Therapy with Na 60 02/02/24 15:15 99.9 F H 60 22 H 138/59 L 93 02/02/24 15:15 64 02/02/24 13:13 67 24 H 02/02/24 13:06 64 26 H 02/02/24 13:06 97 High Flow Therapy with Na 60 Intake/Output Intake/Output: Intake & Output 01/31/24 02/01/24 02/02/24 02/03/24 23:59 23:59 23:59 23:59 Intake Total 1595.9 1670.4 1664.5 600 Output Total 3650 1550 1975 700 Balance -2054.1 120.4 -310.5 -100 Meds/Results Medications: Active Medications Generic Name Dose Route Start Last Admin Trade Name Freq PRN Reason Stop Dose Admin Acetaminophen 650 mg 01/20/24 10:08 02/03/24 10:13 Acetaminophen 325 Mg Tablet PO 650 mg Q4H PRN Administration Mild Pain (1-3) or Fever Hydrocodone Bitart/Acetaminophen 1 tab 02/03/24 10:21 02/03/24 10:47 Hydrocodone/Acetaminophen (*Crx) 5-325 Mg Tablet PO 1 tab Q4H PRN Administration Pain Rated 4-6 Albuterol/Ipratropium 3 ml 01/22/24 14:00 02/03/24 07:47 Ipratropium 0.5 Mg/Albuterol Sulfate 2.5 Mg Ampul.Neb 3 Ml INHALATION 3 ml Q6HRT EDMOND Administration Aspirin 81 mg 01/19/24 08:00 02/03/24 08:36 Aspirin 81 Mg Chewable Tablet PO 81 mg DAILY@0800 EDMOND Administration Atorvastatin Calcium 40 mg 01/19/24 09:00 02/03/24 08:36 Atorvastatin 40 Mg Tablet PO 40 mg DAILY EDMOND Administration Clopidogrel Bisulfate 75 mg 01/19/24 09:00 02/03/24 08:36 Clopidogrel Bisulfate 75 Mg Tablet PO 75 mg DAILY EDMOND Administration Dextrose 12.5 gm 01/18/24 23:28 Dextrose 50% 25 Gm/50 Ml Syringe IV PUSH PRN PRN Hypoglycemia Protocol Epoetin Ronnell-epbx 10,000 units 01/31/24 13:30 02/03/24 08:37 Epoetin Ronnell-Epbx 10,000 Units/Ml Vial SUB-Q 10,000 units TUTHSA@09 EDMOND Administration Glucagon 1 mg 01/18/24 23:28 Glucagon For Inj 1 Mg Vial IM PRN PRN Hypoglycemia Protocol Glucose 15 gm 01/18/24 23:28 Glucose Oral Gel 15 Gm Of Glucse In 37.5 Gm Tube PO PRN PRN Hypoglycemia Protocol Dextrose 1,000 mls @ 100 mls/hr 01/18/24 23:28 Dextrose 5% 1,000 Ml IVPB PRN PRN Hypoglycemia Protocol Albumin Human 50 mls @ 999 mls/hr 01/26/24 11:40 01/27/24 09:51 Albutein IVPB 02/25/24 11:39 999 mls/hr Q10M PRN Administration HYPOTENSION Ampicillin Sodium/Sulbactam Sodium 3 gm in 100 mls @ 200 mls/hr 01/31/24 15:00 02/03/24 08:37 Unasyn 3 Gm/Ns 100 Ml IVPB 200 mls/hr Q6H EDMOND Administration Vancomycin HCl 1,000 mg in 250 mls @ 250 mls/hr 02/03/24 22:00 Vancomycin 1,000 Mg/Ns 250 Ml IVPB 02/04/24 23:59 Q36H [facility] Insulin Aspart 4 - 8 units 01/19/24 12:00 02/03/24 11:42 Insulin Aspart (*Bkc) 100 Units/Ml SUB-Q Not Given Q4H [facility] Protocol Insulin Glargine 75 units 02/01/24 09:00 Insulin Glargine (*Bkc) 100 Units/Ml SUB-Q QAM [facility] Levothyroxine Sodium 112 mcg 01/19/24 06:30 02/03/24 06:20 Levothyroxine Sodium 112 Mcg Tablet PO 112 mcg DAILY@0630 EDMOND Administration Melatonin 3 mg 02/02/24 22:00 02/02/24 22:19 Melatonin 3 Mg Tablet PO 3 mg HS PRN Administration Insomnia Ondansetron HCl 4 mg 01/18/24 22:13 Ondansetron Inj 4 Mg/2 Ml Vial IV PUSH Q4H PRN Nausea Pantoprazole Sodium 40 mg 01/19/24 09:00 02/03/24 08:37 Pantoprazole Sodium Iv 40 Mg Vial IV PUSH 40 mg Q12HR EDMOND Administration Polyethylene Glycol 17 gm 01/29/24 10:19 Polyethylene Glycol 3350 17 Gm Powd.Pack PO QAM PRN Constipation Potassium Chloride 40 meq 02/03/24 09:00 02/03/24 08:36 Potassium Chloride 20 Meq Packet (For Liquid) PO 40 meq DAILY EDMOND Administration Radiology Results: ITS Impressions Chest/Abdomen/Pelvis CTA 01/18/24 18:30 IMPRESSION: Nonocclusive acute subsegmental pulmonary embolus in the left lower lobe. Very small clot burden. No evidence of right heart strain. Left lower lobe pneumonia. Mild hepatomegaly. Possible cystitis. Otherwise, no acute abdominopelvic process detected. Chest/Abdomen/Pelvis CT 01/22/24 12:43 IMPRESSION: Worsening respiratory status with bibasilar consolidation and interstitial thickening with patchy groundglass opacification bilaterally -findings suggesting ARDS. Mural thickening within the rectosigmoid colon with multiple diverticula and prominence of the vasa recta, possibly early diverticulitis. Interval development of perihepatic fluid, compared with previous study. Renal Ultrasound 01/24/24 12:05 IMPRESSION: 1. Normal kidneys without hydronephrosis. Abdomen X-Ray 01/25/24 14:53 IMPRESSION: NG tube in distal stomach Nonspecific abdomen Venous Doppler Study 01/30/24 14:52 IMPRESSION: 1. Small amount of nonocclusive deep venous thrombosis at the right common femoral vein reported site of a recently removed central venous catheter. No other deep venous thrombosis in the remainder of the bilateral lower limbs. Head CT 01/31/24 08:55 IMPRESSION: Cerebral atherosclerosis and chronic small vessel ischemic changes of the cerebral white matter No acute intracranial finding Moderate mucoperiosteal thickening of the left sphenoid sinus and partial opacification of mastoid air cells bilaterally Chest X-Ray 02/03/24 06:03 Impression: Stable patchy airspace disease with underlying chronic interstitial disease. Correlate for superimposed pneumonia or pulmonary edema. Stable support line. Labs Labs: Laboratory Tests 02/03/24 04:01 02/03/24 04:01 Calcium 7.7 L Magnesium 1.7 Total Bilirubin 1.0 AST 132 H ALT 91 H Alkaline Phosphatase 166 H Total Protein 7.0 Albumin 3.2 L
--- NOTE | 2024-02-03 10:43 | PCNFU ---
Nutrition Follow-Up Complete: Inadequate energy intake related to NPO as evidenced by mechanical ventilation Goal: Meet estimated needs Patient is progressing towards goal. Pt current nutrition is Minced and Moist, Level 5/Heart Healthy. Nutrition recommendation: Nutritional Ice Cream TID. Last recorded weight is 74.6 kg, up from 72 kg on admit. Bowel Motility: +Bm reported 02/02 Labs Reviewed:Glu 120, BUN 24, GFR 44, Cr 1.2, Alb 3.2 Meds Noted:Reglan, Protonix, Lipitor Skin: WNL Additional Notes: Diet order has advanced to a Minced and Moist, Level 5. Speech Eval on 01/31. Oral Intake has been poor. Recommending Nutritional Ice Cream TID for additional 300 kcal and 9 gms protein. Agree with diet orders. Monitor weight , skin, oral intake, meds. Follow daily in ICU rounds and reassess every 3 days.
[2024-02-03] MEDS: HYDROcodone/acetaminophen (*CRX) 5-325 MG TABLET 1 TAB PO ×3 (10:47→20:29)
[2024-02-03 11:42] LABS: Glucose Point of Care 98 mg/dl (65-105)
[2024-02-03 17:04] LABS: Glucose Point of Care 97 mg/dl (65-105)
[2024-02-03 20:38] LABS: Glucose Point of Care 203 mg/dl (65-105)
[2024-02-03] MEDS: INSULIN ASPART (*BKC) 100 UNITS/ML SUB-Q (21:07)
[2024-02-03] MEDS: VANCOMYCIN 1,000 MG/NS 250 ML 1,000 MG/250 ML BAG 250 MG IVPB (22:24)
[2024-02-03 23:57] LABS: Glucose Point of Care 119 mg/dl (65-105)
[2024-02-04] VITALS (29 sets, daily range): BP systolic 111–153; BP diastolic 43–73; PULSE 65–75; RESP 18–22; TEMP 36.6–37.2; O2SAT 93–98
--- NOTE | 2024-02-04 00:28 | PC.NURSE ---
report given to alecia hernandes transfered to [id number]
[2024-02-04 00:32] LABS: Glucose Point of Care 117 mg/dl (65-105)
--- NOTE | 2024-02-04 00:38 | PC.NURSE ---
This patient, Frances Lazo, was received from ICU 8 on 02/04/24 at 0015. Patient/family oriented to unit policies and routines. Report recieved from Jese Lechuga RN
[2024-02-04] MEDS: ACETAMINOPHEN 325 MG TABLET 650 MG PO ×2 (01:26→20:01)
[2024-02-04] MEDS: IPRATROPIUM 0.5 MG/ALBUTEROL SULFATE 2.5 MG AMPUL.NEB 3 ML INHALATION ×4 (03:15→21:44)
[2024-02-04] MEDS: AMPICILLIN SULB 3 GM/NS 100 ML 3 GM/100 ML VIAL IVPB ×4 (03:33→20:01)
[2024-02-04 03:47] LABS: Hematocrit 25.9 % (37.0-47.0); Hemoglobin 8.1 g/dL (12.0-15.0); Mean Corpuscular HGB Conc 31.3 g/dl (32-36); Mean Corpuscular Volume 99.2 fl (80-100); Mean Platelet Volume 9.8 fl (7.4-10.4); Platelet Count Result 306 k/mm3 (150-375); Red Blood Count 2.61 M/mm3 (4.2-5.4); Red Cell Distribution Width 14.8 % (11.5-14.5); White Blood Count 11.2 K/mm3 (4.5-10.0)
[2024-02-04] MEDS: HYDROcodone/acetaminophen (*CRX) 5-325 MG TABLET 1 TAB PO ×4 (03:52→21:33)
[2024-02-04 04:06] LABS: Alanine Aminotransferase 65 U/L (6-35); Albumin Level 3.2 g/dL (3.5-5.1); Alkaline Phosphatase 159 U/L (38-126); Anion Gap 7 mmol/L (4-12); Aspartate Amino Transferase 69 U/L (14-36); Bilirubin,Total 0.9 mg/dL (0.2-1.3); Blood Urea Nitrogen 18 mg/dL (7-17); Calcium 7.4 mg/dL (8.4-10.2); Carbon Dioxide 24 mmol/L (22-30); Chloride 107 mmol/L (98-107); Estimated CRCL calculation 35 ml/min; Estimated Glomerular Filt Rate 44; Glucose 174 mg/dL (65-110); Magnesium 1.6 mg/dL (1.6-2.3); Potassium 3.8 mmol/L (3.4-5.0); Sodium 138 mmol/L (137-145)
[2024-02-04] MEDS: LEVOTHYROXINE SODIUM 112 MCG TABLET PO (05:30)
[2024-02-04 07:44] LABS: Glucose Point of Care 136 mg/dl (65-105)
[2024-02-04] MEDS: ATORVASTATIN 40 MG TABLET PO (09:24)
[2024-02-04] MEDS: CLOPIDOGREL BISULFATE 75 MG TABLET PO (09:24)
[2024-02-04] MEDS: MAGNESIUM SULF 1 GM/D5W 100 ML 1 GM/100 ML BAG IVPB (09:24)
[2024-02-04] MEDS: POTASSIUM CHLORIDE 20 MEQ PACKET (FOR LIQUID) 40 MEQ PO (09:25)
[2024-02-04] MEDS: ASPIRIN 81 MG CHEWABLE TABLET PO (09:25)
[2024-02-04] MEDS: PANTOPRAZOLE SODIUM IV 40 MG VIAL IV PUSH ×2 (09:25→20:02)
--- NOTE | 2024-02-04 10:07 | PM.IMPN ---
Progress Note: A&P Assessment and Plan (1) Acute respiratory failure: Code(s): J96.00 - Acute respiratory failure, unspecified whether with hypoxia or hypercapnia Status: Acute Assessment and Plan: Acute Respiratory failure secondary to pneumonia and PE. Patient appears to have developed ARDS Patient had became CPAP dependent 100% FiO2. 01/20 patient intubated for discussion with the patient and her daughter. ABG reviewed and low tidal volume ventilation. PEEP set at 12 tidal volume at 300 mL. FiO2 is 100%. Increase respiratory rate to 26 Post intubation patient was coughing and gagging leading to desaturation hence was given rocuronium. Patient was started on Nimbex infusion along with sedation at this time. Patient was placed in prone position CT scan done yesterday showed IMPRESSION: Worsening respiratory status with bibasilar consolidation and interstitial thickening with patchy groundglass opacification bilaterally -findings suggesting ARDS. Status post steroids for pneumonia and ARDS Status post Nimbex 01/25: Started dialysis with removal of 1066 mL in fluid removal -Continue Bronchodilators 01/28: Diuresed well with Bumex with 1400 mL in negative fluid balance 01/29: Discussed with Nephrology, diuresed well with Bumex with approximately 1600 mL in negative fluid balance 01/30: Chest x-ray - Stable or mildly improved extensive bilateral pulmonary infiltrates, most prominent in the lower lobes, especially left lower lobe. 01/30: Patient was placed on SBT, did very well, are is be eyes were 20s to 30s, post SBT ABG load good, patient was extubated only to require oxygen later in the evening and was placed on high-flow therapy 02/03: Currently on 02@2LNC with Sa02 93%. Incentive spirometry. Sitting up on the side of bed. PT/OT (2) Septic shock: Code(s): A41.9 - Sepsis, unspecified organism; R65.21 - Severe sepsis with septic shock Status: Acute Assessment and Plan: Secondary to pneumonia 01/17: Patient presented with hypotension, elevated lactic acid levels, fevers, cough, hypoxia -received 30 mL/kg IV fluids -started on Levophed via femoral central line - Off IV fluids vasopressors now -01/17: Blood cultures have been obtained and negative till now MRSA screen negative Urine pneumococcal antigen negative Urine Legionella antigen pending Influenza RSV and COVID PCR negative 01/22: Sputum cultures growing MRSA, -continue vancomycin for a course of 10 days 01/26 Flagyl and ceftriaxone discontinued 01/28: Patient has been febrile with a T-max of 101.3?, 01/28: Blood, and sputum cultures negative so far 01/28: Urine cultures with no growth -01/30 CT brain, showed Moderate mucoperiosteal thickening of the left sphenoid sinus and partial opacification of mastoid air cells bilaterally -given patient continues to have low-grade fevers, started patient on Unasyn for possible sinusitis (01/30) -02/03 Unasyn today then switch to Augmentin 875-125 mg PO q 12 tomorrow. (3) Community acquired pneumonia: Qualifiers: Laterality: left Lung location: lower lobe of lung Qualified Code(s): J18.9 - Pneumonia, unspecified organism Code(s): J18.9 - Pneumonia, unspecified organism Status: Acute Assessment and Plan: -See above (4) Diabetes: Code(s): E11.9 - Type 2 diabetes mellitus without complications Status: Acute Assessment and Plan: -Uncontrolled -HgbA1C 8.4 on 01/19/24 -Continue Accu-Cheks and sliding scale insulin (5) Acute kidney injury: Code(s): N17.9 - Acute kidney failure, unspecified Status: Acute Assessment and Plan: Patient initially presented with Acute kidney injury likely related to hypotension, septic shock She was adequately fluid-resuscitated and came off of IV fluids Creatinine normalized initially Patient did receive contrast for CTA Creatinine increased post intubation. 01/22 Lasix IV x1 Patient was given 25% albumin and will give 5% albumin. Will avoid liberal fluids due to patient's respiratory status. Patient is positive her I/O balance 01/25: Creatinine continues to increase along with elevated BUN today. Urine output also decreasing. Dr Dunbar discussed with nephrology and family will plan to initiate dialysis. Temporary dialysis catheter placed after obtaining consent from patient's family. Discussed with nephrology. Production Foreman will arrange for dialysis 01/25: Started dialysis with 1066 mL in fluid removal 01/26: Dialysis with 883 mL in fluid removal 01/27: Dialysis with 3000 mL in fluid removal 01/28: Diuresed with Bumex with good urine output and approx 1400 mL in negative fluid balance 01/29: Diuresis with Bumex with good urine output and approx 1600 mL in negative fluid balance 01/30: Diuresis Bumex with good urine output in approximately 2000 mL in negative fluid balance 01/31: Discussed with Nephrology, will hold diuresis today since patient's potassium is low and being repleted. If she does not have good urine output during the end of the day will diurese with Bumex per Nephrology 02/02: Urine output electrolytes reviewed. Creatinine stable good urine output. Further management by Nephrology 02/03: Nephrology following. BUN 18, Creatinine 1.20, and GFR 44. (6) Pulmonary embolism: Code(s): I26.99 - Other pulmonary embolism without acute cor pulmonale Status: Acute Assessment and Plan: 01/18: Venous Dopplers negative 01/26: Heparin infusion is being held due to anemia and hematuria and drop in hemoglobin -will continue to monitor hemoglobin levels, if remains stable, may start Lovenox 1 mg/kg daily starting 01/27 01/27: Hemoglobin 7.0 this morning, will continue to hold anticoagulation, status post 1 unit of packed RBC 01/29: Remains febrile, venous Dopplers: Small amount of nonocclusive deep venous thrombosis at the right common femoral vein reported site of a recently removed central venous catheter. No other deep venous thrombosis in the remainder of the bilateral lower limbs. -patient did not tolerate anticoagulation for a small PE, appreciate surgical evaluation, IVC filter placed on 02/02/202401/17: CT chest abdomen and pelvis IMPRESSION: Nonocclusive acute subsegmental pulmonary embolus in the left lower lobe. Very small clot burden. No evidence of right heart strain. Left lower lobe pneumonia. Mild hepatomegaly. Possible cystitis. Otherwise, no acute abdominopelvic process detected. Echo Summary 1. Left ventricular systolic function is normal, estimated at 55-60%. 2. There is mildly increased left ventricular wall thickness. 3. The left ventricular diastolic function is grade I diastolic dysfunction. 4. There is trace mitral valve regurgitation. 5. There is trace tricuspid valve regurgitation. 6. No pulmonary hypertension, estimated pulmonary arterial systolic pressure is 41 mmHg. 7. Right ventricular systolic function is normal. 8. Right ventricular chamber dimension is normal. (7) Electrolyte abnormality: Code(s): E87.8 - Other disorders of electrolyte and fluid balance, not elsewhere classified Status: Acute Assessment and Plan: - Magnesium 1.6, patient given Magnesium Sulfate 1 gm IVPB x 1. (8) Diverticulitis: Code(s): K57.92 - Diverticulitis of intestine, part unspecified, without perforation or abscess without bleeding Status: Acute Assessment and Plan: -CT abdomen pelvis showed Mural thickening within the rectosigmoid colon with multiple diverticula and prominence of the vasa recta, possibly early diverticulitis. Interval development of perihepatic fluid, compared with previous study. -Status post ceftriaxone and Flagyl (9) Ileus: Code(s): K56.7 - Ileus, unspecified Status: Acute Assessment and Plan: -Patient is now off tube feeds. Diet ordered (10) Anemia: Code(s): D64.9 - Anemia, unspecified Status: Acute Assessment and Plan: Patient's hemoglobin has gradually trended down over last 4-5 days. She is on heparin infusion for PE. There has been no evidence of bleeding. Continue monitor this time. Transfuse if hemoglobin less than 7. Platelets are at acceptable level. She is also on aspirin Plavix for coronary disease She is on Protonix twice a day 01/26: Hemoglobin dropped to 7.1, will hold heparin infusion. Monitor hemoglobin levels and if the improved restart either heparin infusion or Lovenox 1 mg/kg daily 01/27: Hemoglobin 7.0 this morning, status post 1 unit of packed RBCs with hemodialysis, continue to hold anticoagulation Hemoglobin remains stable at this time, anticoagulation continues to be on hold 02/03: Hemoglobin 8.1. (11) Encephalopathy: Code(s): G93.40 - Encephalopathy, unspecified Status: Acute Assessment and Plan: Patient is now awake, alert, oriented x3 01/30: CT brain Cerebral atherosclerosis and chronic small vessel ischemic changes of the cerebral white matter No acute intracranial finding Moderate mucoperiosteal thickening of the left sphenoid sinus and partial opacification of mastoid air cells bilaterally (12) Leg pain, bilateral: Code(s): M79.604 - Pain in right leg; M79.605 - Pain in left leg Status: Acute Assessment and Plan: - Tylenol 650 mg PO q 4 PRN or Hydrocodone/Acetaminophen 5-325 mg Plan DVT prophylaxis: Heparin infusion has been stopped due to drop in hemoglobin, continue SCDs patient has IVC filter Stress ulcer prophylaxis: Protonix IV q.12 hours Nutrition: Modified diet ordered after speech evaluation Code status: full code Transfer out of ICU today Incentive spirometry, PT OT, up in chair Subjective Date/time seen: 02/04/24 10:07 Interval history: Patient sitting up on the side of the bed. Patients family in room with patient. Patient reports that today is the first time she really felt like eating. Patient denies chest pain, palpitations, headache, dizziness, nausea, or vomiting. Patient reports that she stopped smoking 4 weeks ago, patient started smoking at the age of 10 one pack a day. Patient reports bilateral leg pain that is a 4 , frequent, and aching. Review of Systems Review of Systems: All systems reviewed & are unremarkable except as noted in HPI and below Exam Const: General: comfortable and no acute distress Eyes: Sclera: sclerae normal Resp: Effort & Inspection: normal respiratory effort Other: coarse breath sounds. Cardio: Rate: regular rate Rhythm: regular rhythm GI: GI Palp: Yes Soft to palpation Other: Hypoactive bowel sounds Skin: General skin exam: no rashes or lesions noted Neuro: Speech: normal speech Extrem: General: no pedal edema Psych: Mental Status: mental status grossly normal Affect: normal affect Objective Data Vital Signs Vital Signs: Vital Signs - 24 hr 02/03/24 12:00 02/03/24 12:00 02/03/24 12:00 Temperature 99.2 F Pulse Rate 61 61 61 Respiratory Rate 16 16 Blood Pressure 150/61 H Pulse Oximetry 97 97 Oxygen Delivery Nasal Cannula Oxygen Flow Rate 4 Fraction of Inspired Oxygen 02/03/24 14:03 02/03/24 14:03 02/03/24 14:14 Temperature Pulse Rate 61 65 Respiratory Rate 18 18 Blood Pressure Pulse Oximetry 94 Oxygen Delivery Nasal Cannula Oxygen Flow Rate 4 Fraction of Inspired Oxygen 36 02/03/24 14:00 02/03/24 14:00 02/03/24 16:00 Temperature 99 F Pulse Rate 71 71 63 Respiratory Rate 24 H 21 H Blood Pressure 143/69 H Pulse Oximetry 91 99 Oxygen Delivery Nasal Cannula Oxygen Flow Rate 4 Fraction of Inspired Oxygen 02/03/24 16:00 02/03/24 16:00 02/03/24 18:00 Temperature 99.2 F Pulse Rate 63 63 75 Respiratory Rate 21 H Blood Pressure 113/55 L Pulse Oximetry 99 Oxygen Delivery Oxygen Flow Rate Fraction of Inspired Oxygen 02/03/24 18:00 02/03/24 20:31 02/03/24 21:07 Temperature 99.4 F 99.7 F H Pulse Rate 75 65 68 Respiratory Rate 22 H 24 H 18 Blood Pressure 130/66 125/46 L Pulse Oximetry 94 95 Oxygen Delivery Oxygen Flow Rate Fraction of Inspired Oxygen 02/03/24 21:16 02/03/24 20:00 02/03/24 20:00 Temperature Pulse Rate 66 55 L Respiratory Rate 18 Blood Pressure Pulse Oximetry 94 100 Oxygen Delivery Nasal Cannula Nasal Cannula Oxygen Flow Rate 4 4 Fraction of Inspired Oxygen 02/03/24 22:04 02/03/24 22:00 02/04/24 00:39 Temperature 99.8 F H Pulse Rate 62 68 73 Respiratory Rate 23 H Blood Pressure 131/63 Pulse Oximetry 96 Oxygen Delivery Oxygen Flow Rate Fraction of Inspired Oxygen 02/04/24 00:00 02/04/24 00:15 02/04/24 02:00 Temperature 98.9 F Pulse Rate 70 70 67 Respiratory Rate 22 H Blood Pressure 135/43 L Pulse Oximetry 96 96 Oxygen Delivery Nasal Cannula Oxygen Flow Rate 4 Fraction of Inspired Oxygen 02/04/24 03:51 02/04/24 04:23 02/04/24 04:00 Temperature 98.6 F Pulse Rate 70 72 Respiratory Rate 20 Blood Pressure 126/52 L Pulse Oximetry 95 95 Oxygen Delivery Nasal Cannula Oxygen Flow Rate 3 Fraction of Inspired Oxygen 02/04/24 03:15 02/04/24 03:25 02/04/24 05:51 Temperature Pulse Rate 67 69 65 Respiratory Rate 19 19 18 Blood Pressure Pulse Oximetry Oxygen Delivery Oxygen Flow Rate Fraction of Inspired Oxygen 02/04/24 05:57 02/04/24 06:00 02/04/24 07:57 Temperature 97.9 F Pulse Rate 66 66 68 Respiratory Rate 18 22 H Blood Pressure 131/50 L Pulse Oximetry 97 Oxygen Delivery Oxygen Flow Rate Fraction of Inspired Oxygen Intake/Output Intake/Output: Intake & Output 02/01/24 02/02/24 02/03/24 02/04/24 23:59 23:59 23:59 23:59 Intake Total 1670.4 1664.5 950 570 Output Total 1550 1975 1550 750 Balance 120.4 -310.5 -600 -180 Meds/Results Medications: Active Medications Generic Name Dose Route Start Last Admin Trade Name Freq PRN Reason Stop Dose Admin Acetaminophen 650 mg 01/20/24 10:08 02/04/24 01:26 Acetaminophen 325 Mg Tablet PO 650 mg Q4H PRN Administration Mild Pain (1-3) or Fever Hydrocodone Bitart/Acetaminophen 1 tab 02/03/24 10:21 02/04/24 03:52 Hydrocodone/Acetaminophen (*Crx) 5-325 Mg Tablet PO 1 tab Q4H PRN Administration Pain Rated 4-6 Albuterol/Ipratropium 3 ml 02/04/24 05:40 02/04/24 05:51 Ipratropium 0.5 Mg/Albuterol Sulfate 2.5 Mg Ampul.Neb 3 Ml INHALATION 3 ml Q6HRT EDMOND Administration Aspirin 81 mg 01/19/24 08:00 02/04/24 09:25 Aspirin 81 Mg Chewable Tablet PO 81 mg DAILY@0800 EDMOND Administration Atorvastatin Calcium 40 mg 01/19/24 09:00 02/04/24 09:24 Atorvastatin 40 Mg Tablet PO 40 mg DAILY EDMOND Administration Clopidogrel Bisulfate 75 mg 01/19/24 09:00 02/04/24 09:24 Clopidogrel Bisulfate 75 Mg Tablet PO 75 mg DAILY EDMOND Administration Dextrose 12.5 gm 01/18/24 23:28 Dextrose 50% 25 Gm/50 Ml Syringe IV PUSH PRN PRN Hypoglycemia Protocol Epoetin Ronnell-epbx 10,000 units 01/31/24 13:30 02/03/24 08:37 Epoetin Ronnell-Epbx 10,000 Units/Ml Vial SUB-Q 10,000 units TUTHSA@09 EDMOND Administration Glucagon 1 mg 01/18/24 23:28 Glucagon For Inj 1 Mg Vial IM PRN PRN Hypoglycemia Protocol Glucose 15 gm 01/18/24 23:28 Glucose Oral Gel 15 Gm Of Glucse In 37.5 Gm Tube PO PRN PRN Hypoglycemia Protocol Dextrose 1,000 mls @ 100 mls/hr 01/18/24 23:28 Dextrose 5% 1,000 Ml IVPB PRN PRN Hypoglycemia Protocol Albumin Human 50 mls @ 999 mls/hr 01/26/24 11:40 02/03/24 09:55 Albutein IVPB 02/25/24 11:39 Infused Q10M PRN Infusion HYPOTENSION Ampicillin Sodium/Sulbactam Sodium 3 gm in 100 mls @ 200 mls/hr 01/31/24 15:00 02/04/24 09:25 Unasyn 3 Gm/Ns 100 Ml IVPB 200 mls/hr Q6H EDMOND Administration Vancomycin HCl 1,000 mg in 250 mls @ 250 mls/hr 02/03/24 22:00 02/03/24 22:24 Vancomycin 1,000 Mg/Ns 250 Ml IVPB 02/04/24 23:59 250 mls/hr Q36H EDMOND Administration Insulin Aspart 4 - 8 units 01/19/24 12:00 02/04/24 09:25 Insulin Aspart (*Bkc) 100 Units/Ml SUB-Q Not Given Q4H [facility] Protocol Insulin Glargine 75 units 02/01/24 09:00 Insulin Glargine (*Bkc) 100 Units/Ml SUB-Q QAM EDMOND Levothyroxine Sodium 112 mcg 01/19/24 06:30 02/04/24 05:30 Levothyroxine Sodium 112 Mcg Tablet PO 112 mcg DAILY@0630 EDMOND Administration Melatonin 3 mg 02/02/24 22:00 02/02/24 22:19 Melatonin 3 Mg Tablet PO 3 mg HS PRN Administration Insomnia Ondansetron HCl 4 mg 01/18/24 22:13 Ondansetron Inj 4 Mg/2 Ml Vial IV PUSH Q4H PRN Nausea Pantoprazole Sodium 40 mg 01/19/24 09:00 02/04/24 09:25 Pantoprazole Sodium Iv 40 Mg Vial IV PUSH 40 mg Q12HR EDMOND Administration Polyethylene Glycol 17 gm 01/29/24 10:19 Polyethylene Glycol 3350 17 Gm Powd.Pack PO QAM PRN Constipation Potassium Chloride 40 meq 02/03/24 09:00 02/04/24 09:25 Potassium Chloride 20 Meq Packet (For Liquid) PO 40 meq DAILY EDMOND Administration Radiology Results: ITS Impressions Chest/Abdomen/Pelvis CTA 01/18/24 18:30 IMPRESSION: Nonocclusive acute subsegmental pulmonary embolus in the left lower lobe. Very small clot burden. No evidence of right heart strain. Left lower lobe pneumonia. Mild hepatomegaly. Possible cystitis. Otherwise, no acute abdominopelvic process detected. Chest/Abdomen/Pelvis CT 01/22/24 12:43 IMPRESSION: Worsening respiratory status with bibasilar consolidation and interstitial thickening with patchy groundglass opacification bilaterally -findings suggesting ARDS. Mural thickening within the rectosigmoid colon with multiple diverticula and prominence of the vasa recta, possibly early diverticulitis. Interval development of perihepatic fluid, compared with previous study. Renal Ultrasound 01/24/24 12:05 IMPRESSION: 1. Normal kidneys without hydronephrosis. Abdomen X-Ray 01/25/24 14:53 IMPRESSION: NG tube in distal stomach Nonspecific abdomen Venous Doppler Study 01/30/24 14:52 IMPRESSION: 1. Small amount of nonocclusive deep venous thrombosis at the right common femoral vein reported site of a recently removed central venous catheter. No other deep venous thrombosis in the remainder of the bilateral lower limbs. Head CT 01/31/24 08:55 IMPRESSION: Cerebral atherosclerosis and chronic small vessel ischemic changes of the cerebral white matter No acute intracranial finding Moderate mucoperiosteal thickening of the left sphenoid sinus and partial opacification of mastoid air cells bilaterally Chest X-Ray 02/03/24 06:03 Impression: Stable patchy airspace disease with underlying chronic interstitial disease. Correlate for superimposed pneumonia or pulmonary edema. Stable support line. Labs Labs: Laboratory Results - last 24 hr 02/03/24 02/03/24 02/03/24 11:41 16:56 20:36 WBC RBC Hgb Hct MCV MCH MCHC RDW Plt Count MPV Sodium Potassium Chloride Carbon Dioxide Anion Gap BUN Creatinine Estim Creat Clear Calc Estimated GFR Glucose POC Capillary Glucose 98 97 203 H Calcium Magnesium Total Bilirubin AST ALT Alkaline Phosphatase Total Protein Albumin 02/03/24 02/04/24 02/04/24 23:40 00:25 03:39 WBC 11.2 H RBC 2.61 L Hgb 8.1 L Hct 25.9 L MCV 99.2 MCH 31.0 MCHC 31.3 L RDW 14.8 H Plt Count 306 MPV 9.8 Sodium 138 Potassium 3.8 Chloride 107 Carbon Dioxide 24 Anion Gap 7 BUN 18 H Creatinine 1.20 H Estim Creat Clear Calc 35 Estimated GFR 44 L Glucose 174 H POC Capillary Glucose 119 H 117 H Calcium 7.4 L Magnesium 1.6 Total Bilirubin 0.9 AST 69 H ALT 65 H Alkaline Phosphatase 159 H Total Protein 7.0 Albumin 3.2 L 02/04/24 07:27 WBC RBC Hgb Hct MCV MCH MCHC RDW Plt Count MPV Sodium Potassium Chloride Carbon Dioxide Anion Gap BUN Creatinine Estim Creat Clear Calc Estimated GFR Glucose POC Capillary Glucose 136 H Calcium Magnesium Total Bilirubin AST ALT Alkaline Phosphatase Total Protein Albumin Quality VTE Prophylaxis VTE prophylaxis: pharmacologic ordered (Heparin GGT per protocol)
[2024-02-04 12:05] LABS: Glucose Point of Care 213 mg/dl (65-105)
[2024-02-04 15:26] LABS: Glucose Point of Care 161 mg/dl (65-105)
[2024-02-04 21:04] LABS: Glucose Point of Care 107 mg/dl (65-105)
[2024-02-04 23:52] LABS: Glucose Point of Care 108 mg/dl (65-105)
[2024-02-05] VITALS (22 sets, daily range): BP systolic 137–155; BP diastolic 51–62; PULSE 60–75; RESP 18–24; TEMP 36.4–37.2; O2SAT 90–100
[2024-02-05] MEDS: IPRATROPIUM 0.5 MG/ALBUTEROL SULFATE 2.5 MG AMPUL.NEB 3 ML INHALATION ×4 (03:03→20:19)
[2024-02-05] MEDS: AMPICILLIN SULB 3 GM/NS 100 ML 3 GM/100 ML VIAL IVPB (03:15)
[2024-02-05 03:25] LABS: Hematocrit 25.4 % (37.0-47.0); Hemoglobin 7.7 g/dL (12.0-15.0); Mean Corpuscular HGB Conc 30.3 g/dl (32-36); Mean Corpuscular Hemoglobin 30.6 pg (26-34); Mean Corpuscular Volume 100.8 fl (80-100); Mean Platelet Volume 10.1 fl (7.4-10.4); Platelet Count Result 305 k/mm3 (150-375); Red Blood Count 2.52 M/mm3 (4.2-5.4); Red Cell Distribution Width 15.1 % (11.5-14.5); White Blood Count 10.2 K/mm3 (4.5-10.0)
[2024-02-05 03:37] LABS: Alanine Aminotransferase 48 U/L (6-35); Albumin Level 3.2 g/dL (3.5-5.1); Alkaline Phosphatase 133 U/L (38-126); Anion Gap 7 mmol/L (4-12); Aspartate Amino Transferase 44 U/L (14-36); Bilirubin,Total 0.8 mg/dL (0.2-1.3); Blood Urea Nitrogen 13 mg/dL (7-17); Calcium 7.5 mg/dL (8.4-10.2); Carbon Dioxide 25 mmol/L (22-30); Chloride 109 mmol/L (98-107); Estimated CRCL calculation 35 ml/min; Estimated Glomerular Filt Rate 44; Glucose 104 mg/dL (65-110); Magnesium 1.7 mg/dL (1.6-2.3); Potassium 4.2 mmol/L (3.4-5.0); Sodium 141 mmol/L (137-145)
[2024-02-05] MEDS: LEVOTHYROXINE SODIUM 112 MCG TABLET PO (05:13)
[2024-02-05 07:36] LABS: Glucose Point of Care 105 mg/dl (65-105)
--- NOTE | 2024-02-05 08:36 | PM.PNGS ---
Progress Note: A&P Assessment and Plan (1) Dvt femoral (deep venous thrombosis): Code(s): I82.419 - Acute embolism and thrombosis of unspecified femoral vein Status: Acute Assessment and Plan: Nonocclusive thrombus in the right femoral vein. S/p IVC filter placement and doing well. She has a small hematoma in the left groin after attempted access on the left and eventually placed through the right groin. The hematoma is stable and is not enlarging. It is soft and should continue to improve with time. No indication for surgical management of the hematoma unless it were to become infected in the future. We will sign off at this time. Please call with any surgical questions or concerns. (2) GI bleeding: Code(s): K92.2 - Gastrointestinal hemorrhage, unspecified Status: Acute (3) Pulmonary embolism: Code(s): I26.99 - Other pulmonary embolism without acute cor pulmonale Status: Acute Plan I have discussed the patient's case and plan of care with Dr. Linares. Subjective Subjective Date/Time Seen: 02/04/24 16:36 Patient reports: no new complaints Interval history: Patient seen in IMU. Moved out of ICU and feels like she is improving. No pain or complaints in her bilateral groin. Exam Const: General: comfortable and no acute distress GI: Other: Right groin with no swelling or ecchymosis following IVC filter placement with right groin access. There was an attempt at accessing the left groin initially and she now has a small hematoma that appears to be improving and is softer today. There is some extending ecchymosis spreading to the left laterally but with no enlarging hematoma. Objective Data Vital Signs Vital Signs: Vital Signs - 24 hr 02/04/24 10:00 02/04/24 12:08 02/04/24 13:28 Temperature 98.6 F Pulse Rate 72 67 Respiratory Rate 18 Blood Pressure 111/46 L Pulse Oximetry 98 93 Oxygen Delivery Nasal Cannula Oxygen Flow Rate 2 Fraction of Inspired Oxygen 28 02/04/24 13:28 02/04/24 13:40 02/04/24 12:00 Temperature Pulse Rate 69 65 72 Respiratory Rate 18 18 Blood Pressure Pulse Oximetry Oxygen Delivery Oxygen Flow Rate Fraction of Inspired Oxygen 02/04/24 14:00 02/04/24 16:00 02/04/24 12:00 Temperature 97.9 F Pulse Rate 74 71 Respiratory Rate Blood Pressure 153/56 H Pulse Oximetry 94 94 Oxygen Delivery Nasal Cannula Oxygen Flow Rate 2 Fraction of Inspired Oxygen 02/04/24 16:00 02/04/24 18:00 02/04/24 16:00 Temperature Pulse Rate 74 69 Respiratory Rate Blood Pressure Pulse Oximetry 95 Oxygen Delivery Nasal Cannula Oxygen Flow Rate 2 Fraction of Inspired Oxygen 02/04/24 19:55 02/04/24 21:45 02/04/24 21:49 Temperature 98.2 F Pulse Rate 67 70 66 Respiratory Rate 20 18 Blood Pressure 149/73 H Pulse Oximetry 95 96 Oxygen Delivery Nasal Cannula Oxygen Flow Rate 2 Fraction of Inspired Oxygen 02/04/24 20:00 02/04/24 22:00 02/04/24 20:00 Temperature Pulse Rate 67 69 Respiratory Rate Blood Pressure Pulse Oximetry 96 Oxygen Delivery Nasal Cannula Oxygen Flow Rate 3 Fraction of Inspired Oxygen 02/04/24 23:44 02/05/24 00:00 02/05/24 00:00 Temperature 97.8 F Pulse Rate 70 73 Respiratory Rate 20 Blood Pressure 137/53 L Pulse Oximetry 94 94 Oxygen Delivery Nasal Cannula Oxygen Flow Rate 3 Fraction of Inspired Oxygen 02/05/24 02:00 02/05/24 03:26 02/05/24 03:20 Temperature Pulse Rate 69 67 Respiratory Rate 18 Blood Pressure Pulse Oximetry 98 Oxygen Delivery Nasal Cannula Oxygen Flow Rate 2 Fraction of Inspired Oxygen 02/04/24 21:55 02/05/24 03:30 02/05/24 04:00 Temperature Pulse Rate 69 68 74 Respiratory Rate 18 18 Blood Pressure Pulse Oximetry Oxygen Delivery Oxygen Flow Rate Fraction of Inspired Oxygen 02/05/24 04:00 02/05/24 06:00 02/05/24 07:44 Temperature 97.7 F 97.8 F Pulse Rate 60 70 67 Respiratory Rate 20 20 Blood Pressure 139/58 L 155/62 H Pulse Oximetry 98 93 Oxygen Delivery Oxygen Flow Rate Fraction of Inspired Oxygen 02/05/24 08:10 02/05/24 08:11 Temperature Pulse Rate 67 67 Respiratory Rate 18 Blood Pressure Pulse Oximetry 96 Oxygen Delivery Nasal Cannula Oxygen Flow Rate 2 Fraction of Inspired Oxygen Intake/Output Intake/Output: Intake & Output 02/02/24 02/03/24 02/04/24 02/05/24 23:59 23:59 23:59 23:59 Intake Total 1664.5 950 1090 400 Output Total 1974 1550 1901 650 Balance -310.5 -600 -811 -250 Meds/Results Medications: Active Medications Generic Name Dose Route Start Last Admin Trade Name Freq PRN Reason Stop Dose Admin Acetaminophen 650 mg 01/20/24 10:08 02/04/24 20:01 Acetaminophen 325 Mg Tablet PO 650 mg Q4H PRN Administration Mild Pain (1-3) or Fever Hydrocodone Bitart/Acetaminophen 1 tab 02/03/24 10:21 02/04/24 21:33 Hydrocodone/Acetaminophen (*Crx) 5-325 Mg Tablet PO 1 tab Q4H PRN Administration Pain Rated 4-6 Albuterol/Ipratropium 3 ml 02/04/24 05:40 02/05/24 08:09 Ipratropium 0.5 Mg/Albuterol Sulfate 2.5 Mg Ampul.Neb 3 Ml INHALATION 3 ml Q6HRT EDMOND Administration Amoxicillin/Clavulanate Potassium 1 tablet 02/05/24 09:00 Amoxicillin/Clavulanate K 875-125 Mg Tab PO 02/06/24 21:01 Q12HR EDMOND Aspirin 81 mg 01/19/24 08:00 02/04/24 09:25 Aspirin 81 Mg Chewable Tablet PO 81 mg DAILY@0800 EDMOND Administration Atorvastatin Calcium 40 mg 01/19/24 09:00 02/04/24 09:24 Atorvastatin 40 Mg Tablet PO 40 mg DAILY EDMOND Administration Clopidogrel Bisulfate 75 mg 01/19/24 09:00 02/04/24 09:24 Clopidogrel Bisulfate 75 Mg Tablet PO 75 mg DAILY EDMOND Administration Dextrose 12.5 gm 01/18/24 23:28 Dextrose 50% 25 Gm/50 Ml Syringe IV PUSH PRN PRN Hypoglycemia Protocol Epoetin Ronnell-epbx 10,000 units 01/31/24 13:30 02/03/24 08:37 Epoetin Ronnell-Epbx 10,000 Units/Ml Vial SUB-Q 10,000 units TUTHSA@09 EDMOND Administration Glucagon 1 mg 01/18/24 23:28 Glucagon For Inj 1 Mg Vial IM PRN PRN Hypoglycemia Protocol Glucose 15 gm 01/18/24 23:28 Glucose Oral Gel 15 Gm Of Glucse In 37.5 Gm Tube PO PRN PRN Hypoglycemia Protocol Dextrose 1,000 mls @ 100 mls/hr 01/18/24 23:28 Dextrose 5% 1,000 Ml IVPB PRN PRN Hypoglycemia Protocol Albumin Human 50 mls @ 999 mls/hr 01/26/24 11:40 02/03/24 09:55 Albutein IVPB 02/25/24 11:39 Infused Q10M PRN Infusion HYPOTENSION Insulin Aspart 4 - 8 units 01/19/24 12:00 02/05/24 03:55 Insulin Aspart (*Bkc) 100 Units/Ml SUB-Q Not Given Q4H EDMOND Protocol Insulin Glargine 75 units 02/01/24 09:00 Insulin Glargine (*Bkc) 100 Units/Ml SUB-Q QAM EDMOND Levothyroxine Sodium 112 mcg 01/19/24 06:30 02/05/24 05:13 Levothyroxine Sodium 112 Mcg Tablet PO 112 mcg DAILY@0630 EDMOND Administration Melatonin 3 mg 02/02/24 22:00 02/02/24 22:19 Melatonin 3 Mg Tablet PO 3 mg HS PRN Administration Insomnia Ondansetron HCl 4 mg 01/18/24 22:13 Ondansetron Inj 4 Mg/2 Ml Vial IV PUSH Q4H PRN Nausea Pantoprazole Sodium 40 mg 01/19/24 09:00 02/04/24 20:02 Pantoprazole Sodium Iv 40 Mg Vial IV PUSH 40 mg Q12HR EDMOND Administration Polyethylene Glycol 17 gm 01/29/24 10:19 Polyethylene Glycol 3350 17 Gm Powd.Pack PO QAM PRN Constipation Potassium Chloride 40 meq 02/03/24 09:00 02/04/24 09:25 Potassium Chloride 20 Meq Packet (For Liquid) PO 40 meq DAILY EDMOND Administration Radiology Results: ITS Impressions Chest/Abdomen/Pelvis CTA 01/18/24 18:30 IMPRESSION: Nonocclusive acute subsegmental pulmonary embolus in the left lower lobe. Very small clot burden. No evidence of right heart strain. Left lower lobe pneumonia. Mild hepatomegaly. Possible cystitis. Otherwise, no acute abdominopelvic process detected. Chest/Abdomen/Pelvis CT 01/22/24 12:43 IMPRESSION: Worsening respiratory status with bibasilar consolidation and interstitial thickening with patchy groundglass opacification bilaterally -findings suggesting ARDS. Mural thickening within the rectosigmoid colon with multiple diverticula and prominence of the vasa recta, possibly early diverticulitis. Interval development of perihepatic fluid, compared with previous study. Renal Ultrasound 01/24/24 12:05 IMPRESSION: 1. Normal kidneys without hydronephrosis. Abdomen X-Ray 01/25/24 14:53 IMPRESSION: NG tube in distal stomach Nonspecific abdomen Venous Doppler Study 01/30/24 14:52 IMPRESSION: 1. Small amount of nonocclusive deep venous thrombosis at the right common femoral vein reported site of a recently removed central venous catheter. No other deep venous thrombosis in the remainder of the bilateral lower limbs. Head CT 01/31/24 08:55 IMPRESSION: Cerebral atherosclerosis and chronic small vessel ischemic changes of the cerebral white matter No acute intracranial finding Moderate mucoperiosteal thickening of the left sphenoid sinus and partial opacification of mastoid air cells bilaterally Chest X-Ray 02/03/24 06:03 Impression: Stable patchy airspace disease with underlying chronic interstitial disease. Correlate for superimposed pneumonia or pulmonary edema. Stable support line. Labs Labs: Laboratory Results - last 24 hr 02/04/24 02/04/24 02/04/24 11:35 15:05 19:53 WBC RBC Hgb Hct MCV MCH MCHC RDW Plt Count MPV Sodium Potassium Chloride Carbon Dioxide Anion Gap BUN Creatinine Estim Creat Clear Calc Estimated GFR Glucose POC Capillary Glucose 213 H 161 H 107 H Calcium Magnesium Total Bilirubin AST ALT Alkaline Phosphatase Total Protein Albumin 02/04/24 02/05/24 02/05/24 23:44 03:18 07:28 WBC 10.2 H RBC 2.52 L Hgb 7.7 L Hct 25.4 L MCV 100.8 H MCH 30.6 MCHC 30.3 L RDW 15.1 H Plt Count 305 MPV 10.1 Sodium 141 Potassium 4.2 Chloride 109 H Carbon Dioxide 25 Anion Gap 7 BUN 13 D Creatinine 1.20 H Estim Creat Clear Calc 35 Estimated GFR 44 L Glucose 104 POC Capillary Glucose 108 H 105 Calcium 7.5 L Magnesium 1.7 Total Bilirubin 0.8 AST 44 H ALT 48 H Alkaline Phosphatase 133 H Total Protein 7.0 Albumin 3.2 L
[2024-02-05] MEDS: HYDROcodone/acetaminophen (*CRX) 5-325 MG TABLET 1 TAB PO ×3 (09:10→19:00)
[2024-02-05] MEDS: AMOXICILLIN/CLAVULANATE K 875-125 MG TAB 1 TABLET PO ×2 (09:10→21:04)
[2024-02-05] MEDS: PANTOPRAZOLE SODIUM IV 40 MG VIAL IV PUSH ×2 (09:10→21:04)
[2024-02-05] MEDS: POTASSIUM CHLORIDE 20 MEQ PACKET (FOR LIQUID) 40 MEQ PO (09:10)
[2024-02-05] MEDS: ASPIRIN 81 MG CHEWABLE TABLET PO (09:10)
[2024-02-05] MEDS: CLOPIDOGREL BISULFATE 75 MG TABLET PO (09:11)
[2024-02-05] MEDS: ATORVASTATIN 40 MG TABLET PO (09:11)
--- NOTE | 2024-02-05 10:07 | PC.NURSE ---
Spoke with Dr. Patricio. New orders noted to d/c dialysis catheter. Also reports he will sign off on pt, ok for discharge from nephrology standpoint.
--- NOTE | 2024-02-05 10:18 | PM.IMPN ---
Progress Note: A&P Assessment and Plan (1) Acute respiratory failure: Code(s): J96.00 - Acute respiratory failure, unspecified whether with hypoxia or hypercapnia Status: Acute Assessment and Plan: Acute Respiratory failure secondary to pneumonia and PE. Patient appears to have developed ARDS Patient had became CPAP dependent 100% FiO2. 01/20 patient intubated for discussion with the patient and her daughter. ABG reviewed and low tidal volume ventilation. PEEP set at 12 tidal volume at 300 mL. FiO2 is 100%. Increase respiratory rate to 26 Post intubation patient was coughing and gagging leading to desaturation hence was given rocuronium. Patient was started on Nimbex infusion along with sedation at this time. Patient was placed in prone position CT scan done yesterday showed IMPRESSION: Worsening respiratory status with bibasilar consolidation and interstitial thickening with patchy groundglass opacification bilaterally -findings suggesting ARDS. Status post steroids for pneumonia and ARDS Status post Nimbex 01/25: Started dialysis with removal of 1066 mL in fluid removal -Continue Bronchodilators 01/28: Diuresed well with Bumex with 1400 mL in negative fluid balance 01/29: Discussed with Nephrology, diuresed well with Bumex with approximately 1600 mL in negative fluid balance 01/30: Chest x-ray - Stable or mildly improved extensive bilateral pulmonary infiltrates, most prominent in the lower lobes, especially left lower lobe. 01/30: Patient was placed on SBT, did very well, are is be eyes were 20s to 30s, post SBT ABG load good, patient was extubated only to require oxygen later in the evening and was placed on high-flow therapy 02/03: Currently on 02@2LNC with Sa02 93%. Incentive spirometry. Lying in bed. PT/OT 02/04: Currently on 02@2LNC with Sa02 95%. Incentive spirometry. Lying in bed. PT/OT. Downgrade patient today to med/surg. (2) Septic shock: Code(s): A41.9 - Sepsis, unspecified organism; R65.21 - Severe sepsis with septic shock Status: Acute Assessment and Plan: Secondary to pneumonia 01/17: Patient presented with hypotension, elevated lactic acid levels, fevers, cough, hypoxia -received 30 mL/kg IV fluids -started on Levophed via femoral central line - Off IV fluids vasopressors now -01/17: Blood cultures have been obtained and negative till now MRSA screen negative Urine pneumococcal antigen negative Urine Legionella antigen pending Influenza RSV and COVID PCR negative 01/22: Sputum cultures growing MRSA, -continue vancomycin for a course of 10 days 01/26 Flagyl and ceftriaxone discontinued 01/28: Patient has been febrile with a T-max of 101.3?, 01/28: Blood, and sputum cultures negative so far 01/28: Urine cultures with no growth -01/30 CT brain, showed Moderate mucoperiosteal thickening of the left sphenoid sinus and partial opacification of mastoid air cells bilaterally -given patient continues to have low-grade fevers, started patient on Unasyn for possible sinusitis (01/30) -02/03 Unasyn today then switch to Augmentin 875-125 mg PO q 12 tomorrow. -02/04 started Augmentin 875-125 mg PO q 12. (3) Community acquired pneumonia: Qualifiers: Laterality: left Lung location: lower lobe of lung Qualified Code(s): J18.9 - Pneumonia, unspecified organism Code(s): J18.9 - Pneumonia, unspecified organism Status: Acute Assessment and Plan: -See above (4) Diabetes: Code(s): E11.9 - Type 2 diabetes mellitus without complications Status: Acute Assessment and Plan: -Uncontrolled -HgbA1C 8.4 on 01/19/24 -Continue Accu-Cheks and sliding scale insulin (5) Acute kidney injury: Code(s): N17.9 - Acute kidney failure, unspecified Status: Acute Assessment and Plan: Patient initially presented with Acute kidney injury likely related to hypotension, septic shock She was adequately fluid-resuscitated and came off of IV fluids Creatinine normalized initially Patient did receive contrast for CTA Creatinine increased post intubation. 01/22 Lasix IV x1 Patient was given 25% albumin and will give 5% albumin. Will avoid liberal fluids due to patient's respiratory status. Patient is positive her I/O balance 01/25: Creatinine continues to increase along with elevated BUN today. Urine output also decreasing. Dr Dunbar discussed with nephrology and family will plan to initiate dialysis. Temporary dialysis catheter placed after obtaining consent from patient's family. Discussed with nephrology. Input Output Clerk will arrange for dialysis 01/25: Started dialysis with 1066 mL in fluid removal 01/26: Dialysis with 883 mL in fluid removal 01/27: Dialysis with 3000 mL in fluid removal 01/28: Diuresed with Bumex with good urine output and approx 1400 mL in negative fluid balance 01/29: Diuresis with Bumex with good urine output and approx 1600 mL in negative fluid balance 01/30: Diuresis Bumex with good urine output in approximately 2000 mL in negative fluid balance 01/31: Discussed with Nephrology, will hold diuresis today since patient's potassium is low and being repleted. If she does not have good urine output during the end of the day will diurese with Bumex per Nephrology 02/02: Urine output electrolytes reviewed. Creatinine stable good urine output. Further management by Nephrology 02/03: Nephrology following. BUN 18, Creatinine 1.20, and GFR 44. 02/04: Nephrology signed off and dialysis catheter removed today. (6) Pulmonary embolism: Code(s): I26.99 - Other pulmonary embolism without acute cor pulmonale Status: Acute Assessment and Plan: 01/18: Venous Dopplers negative 01/26: Heparin infusion is being held due to anemia and hematuria and drop in hemoglobin -will continue to monitor hemoglobin levels, if remains stable, may start Lovenox 1 mg/kg daily starting 01/27 01/27: Hemoglobin 7.0 this morning, will continue to hold anticoagulation, status post 1 unit of packed RBC 01/29: Remains febrile, venous Dopplers: Small amount of nonocclusive deep venous thrombosis at the right common femoral vein reported site of a recently removed central venous catheter. No other deep venous thrombosis in the remainder of the bilateral lower limbs. -patient did not tolerate anticoagulation for a small PE, appreciate surgical evaluation, IVC filter placed on 02/02/202401/17: CT chest abdomen and pelvis IMPRESSION: Nonocclusive acute subsegmental pulmonary embolus in the left lower lobe. Very small clot burden. No evidence of right heart strain. Left lower lobe pneumonia. Mild hepatomegaly. Possible cystitis. Otherwise, no acute abdominopelvic process detected. Echo Summary 1. Left ventricular systolic function is normal, estimated at 55-60%. 2. There is mildly increased left ventricular wall thickness. 3. The left ventricular diastolic function is grade I diastolic dysfunction. 4. There is trace mitral valve regurgitation. 5. There is trace tricuspid valve regurgitation. 6. No pulmonary hypertension, estimated pulmonary arterial systolic pressure is 41 mmHg. 7. Right ventricular systolic function is normal. 8. Right ventricular chamber dimension is normal. (7) Diverticulitis: Code(s): K57.92 - Diverticulitis of intestine, part unspecified, without perforation or abscess without bleeding Status: Acute Assessment and Plan: -CT abdomen pelvis showed Mural thickening within the rectosigmoid colon with multiple diverticula and prominence of the vasa recta, possibly early diverticulitis. Interval development of perihepatic fluid, compared with previous study. -Status post ceftriaxone and Flagyl (8) Ileus: Code(s): K56.7 - Ileus, unspecified Status: Acute Assessment and Plan: -Patient is now off tube feeds. Diet ordered (9) Anemia: Code(s): D64.9 - Anemia, unspecified Status: Acute Assessment and Plan: Patient's hemoglobin has gradually trended down over last 4-5 days. She is on heparin infusion for PE. There has been no evidence of bleeding. Continue monitor this time. Transfuse if hemoglobin less than 7. Platelets are at acceptable level. She is also on aspirin Plavix for coronary disease She is on Protonix twice a day 01/26: Hemoglobin dropped to 7.1, will hold heparin infusion. Monitor hemoglobin levels and if the improved restart either heparin infusion or Lovenox 1 mg/kg daily 01/27: Hemoglobin 7.0 this morning, status post 1 unit of packed RBCs with hemodialysis, continue to hold anticoagulation Hemoglobin remains stable at this time, anticoagulation continues to be on hold 02/03: Hemoglobin 8.1. 02/04: Hemoglobin 7.7 (10) Encephalopathy: Code(s): G93.40 - Encephalopathy, unspecified Status: Acute Assessment and Plan: Patient is now awake, alert, oriented x3 01/30: CT brain Cerebral atherosclerosis and chronic small vessel ischemic changes of the cerebral white matter No acute intracranial finding Moderate mucoperiosteal thickening of the left sphenoid sinus and partial opacification of mastoid air cells bilaterally (11) Leg pain, bilateral: Code(s): M79.604 - Pain in right leg; M79.605 - Pain in left leg Status: Acute Assessment and Plan: - Tylenol 650 mg PO q 4 PRN or Hydrocodone/Acetaminophen 5-325 mg Plan DVT prophylaxis: Heparin infusion has been stopped due to drop in hemoglobin, continue SCDs patient has IVC filter Stress ulcer prophylaxis: Protonix IV q.12 hours Nutrition: Modified diet ordered after speech evaluation Code status: full code Transfer out of ICU today Incentive spirometry, PT OT, up in chair Subjective Date/time seen: 02/05/24 10:18 Interval history: Patient denies chest pain, palpitations, headache, dizziness, nausea, or vomiting. Patient upset wanting to leave this morning. Patient calmed down later in day and is now agreeable to go to rehab. Review of Systems Review of Systems: All systems reviewed & are unremarkable except as noted in HPI and below Exam Const: General: comfortable and no acute distress Eyes: Sclera: sclerae normal Resp: Auscultation: diminished lung sounds Cardio: Rate: regular rate Rhythm: regular rhythm Other: Telemetry SR 72 GI: GI Palp: Yes Soft to palpation Auscultation: normal bowel sounds Skin: Other: Ecchymosis to left groin from accessing attempt with small soft improving hematoma. Right groin s/p IVC filter placement with no swelling or ecchymosis. Neuro: Speech: normal speech Extrem: General: no pedal edema Psych: Mental Status: mental status grossly normal Affect: normal affect Objective Data Vital Signs Vital Signs: Vital Signs - 24 hr 02/04/24 12:08 02/04/24 13:28 02/04/24 13:28 Temperature 98.6 F Pulse Rate 67 69 Respiratory Rate 18 18 Blood Pressure 111/46 L Pulse Oximetry 98 93 Oxygen Delivery Nasal Cannula Oxygen Flow Rate 2 Fraction of Inspired Oxygen 02/04/24 13:40 02/04/24 12:00 02/04/24 14:00 Temperature Pulse Rate 65 72 74 Respiratory Rate 18 Blood Pressure Pulse Oximetry Oxygen Delivery Oxygen Flow Rate Fraction of Inspired Oxygen 02/04/24 16:00 02/04/24 12:00 02/04/24 16:00 Temperature 97.9 F Pulse Rate 71 74 Respiratory Rate Blood Pressure 153/56 H Pulse Oximetry 94 94 Oxygen Delivery Nasal Cannula Oxygen Flow Rate 2 Fraction of Inspired Oxygen 02/04/24 18:00 02/04/24 16:00 02/04/24 19:55 Temperature 98.2 F Pulse Rate 69 67 Respiratory Rate 20 Blood Pressure 149/73 H Pulse Oximetry 95 95 Oxygen Delivery Nasal Cannula Oxygen Flow Rate 2 Fraction of Inspired Oxygen 02/04/24 21:45 02/04/24 21:49 02/04/24 20:00 Temperature Pulse Rate 70 66 67 Respiratory Rate 18 Blood Pressure Pulse Oximetry 96 Oxygen Delivery Nasal Cannula Oxygen Flow Rate 2 Fraction of Inspired Oxygen 02/04/24 22:00 02/04/24 20:00 02/04/24 23:44 Temperature 97.8 F Pulse Rate 69 70 Respiratory Rate 20 Blood Pressure 137/53 L Pulse Oximetry 96 94 Oxygen Delivery Nasal Cannula Oxygen Flow Rate 3 Fraction of Inspired Oxygen 02/05/24 00:00 02/05/24 00:00 02/05/24 02:00 Temperature Pulse Rate 73 69 Respiratory Rate Blood Pressure Pulse Oximetry 94 Oxygen Delivery Nasal Cannula Oxygen Flow Rate 3 Fraction of Inspired Oxygen 02/05/24 03:26 02/05/24 03:20 02/04/24 21:55 Temperature Pulse Rate 67 69 Respiratory Rate 18 18 Blood Pressure Pulse Oximetry 98 Oxygen Delivery Nasal Cannula Oxygen Flow Rate 2 Fraction of Inspired Oxygen 02/05/24 03:30 02/05/24 04:00 02/05/24 04:00 Temperature 97.7 F Pulse Rate 68 74 60 Respiratory Rate 18 20 Blood Pressure 139/58 L Pulse Oximetry 98 Oxygen Delivery Oxygen Flow Rate Fraction of Inspired Oxygen 02/05/24 06:00 02/05/24 07:44 02/05/24 08:10 Temperature 97.8 F Pulse Rate 70 67 67 Respiratory Rate 20 18 Blood Pressure 155/62 H Pulse Oximetry 93 Oxygen Delivery Oxygen Flow Rate Fraction of Inspired Oxygen 02/05/24 08:11 Temperature Pulse Rate 67 Respiratory Rate Blood Pressure Pulse Oximetry 96 Oxygen Delivery Nasal Cannula Oxygen Flow Rate 2 Fraction of Inspired Oxygen Intake/Output Intake/Output: Intake & Output 02/02/24 02/03/24 02/04/24 02/05/24 23:59 23:59 23:59 23:59 Intake Total 1664.5 950 1090 400 Output Total 1975 1550 1901 650 Balance -310.5 -600 -811 -250 Meds/Results Medications: Active Medications Generic Name Dose Route Start Last Admin Trade Name Freq PRN Reason Stop Dose Admin Acetaminophen 650 mg 01/20/24 10:08 02/04/24 20:01 Acetaminophen 325 Mg Tablet PO 650 mg Q4H PRN Administration Mild Pain (1-3) or Fever Hydrocodone Bitart/Acetaminophen 1 tab 02/03/24 10:21 02/05/24 09:10 Hydrocodone/Acetaminophen (*Crx) 5-325 Mg Tablet PO 1 tab Q4H PRN Administration Pain Rated 4-6 Albuterol/Ipratropium 3 ml 02/04/24 05:40 02/05/24 08:09 Ipratropium 0.5 Mg/Albuterol Sulfate 2.5 Mg Ampul.Neb 3 Ml INHALATION 3 ml Q6HRT EDMOND Administration Amoxicillin/Clavulanate Potassium 1 tablet 02/05/24 09:00 02/05/24 09:10 Amoxicillin/Clavulanate K 875-125 Mg Tab PO 02/06/24 21:01 1 tablet Q12HR EDMOND Administration Aspirin 81 mg 01/19/24 08:00 02/05/24 09:10 Aspirin 81 Mg Chewable Tablet PO 81 mg DAILY@0800 EDMOND Administration Atorvastatin Calcium 40 mg 01/19/24 09:00 02/05/24 09:11 Atorvastatin 40 Mg Tablet PO 40 mg DAILY EDMOND Administration Clopidogrel Bisulfate 75 mg 01/19/24 09:00 02/05/24 09:11 Clopidogrel Bisulfate 75 Mg Tablet PO 75 mg DAILY EDMOND Administration Dextrose 12.5 gm 01/18/24 23:28 Dextrose 50% 25 Gm/50 Ml Syringe IV PUSH PRN PRN Hypoglycemia Protocol Epoetin Ronnell-epbx 10,000 units 01/31/24 13:30 02/03/24 08:37 Epoetin Ronnell-Epbx 10,000 Units/Ml Vial SUB-Q 10,000 units TUTHSA@09 EDMOND Administration Glucagon 1 mg 01/18/24 23:28 Glucagon For Inj 1 Mg Vial IM PRN PRN Hypoglycemia Protocol Glucose 15 gm 01/18/24 23:28 Glucose Oral Gel 15 Gm Of Glucse In 37.5 Gm Tube PO PRN PRN Hypoglycemia Protocol Dextrose 1,000 mls @ 100 mls/hr 01/18/24 23:28 Dextrose 5% 1,000 Ml IVPB PRN PRN Hypoglycemia Protocol Albumin Human 50 mls @ 999 mls/hr 01/26/24 11:40 02/03/24 09:55 Albutein IVPB 02/25/24 11:39 Infused Q10M PRN Infusion HYPOTENSION Insulin Aspart 4 - 8 units 01/19/24 12:00 02/05/24 09:10 Insulin Aspart (*Bkc) 100 Units/Ml SUB-Q Not Given Q4H [facility] Protocol Insulin Glargine 75 units 02/01/24 09:00 Insulin Glargine (*Bkc) 100 Units/Ml SUB-Q QAM EDMOND Levothyroxine Sodium 112 mcg 01/19/24 06:30 02/05/24 05:13 Levothyroxine Sodium 112 Mcg Tablet PO 112 mcg DAILY@0630 EDMOND Administration Melatonin 3 mg 02/02/24 22:00 02/02/24 22:19 Melatonin 3 Mg Tablet PO 3 mg HS PRN Administration Insomnia Ondansetron HCl 4 mg 01/18/24 22:13 Ondansetron Inj 4 Mg/2 Ml Vial IV PUSH Q4H PRN Nausea Pantoprazole Sodium 40 mg 01/19/24 09:00 02/05/24 09:10 Pantoprazole Sodium Iv 40 Mg Vial IV PUSH 40 mg Q12HR EDMOND Administration Polyethylene Glycol 17 gm 01/29/24 10:19 Polyethylene Glycol 3350 17 Gm Powd.Pack PO QAM PRN Constipation Potassium Chloride 40 meq 02/03/24 09:00 02/05/24 09:10 Potassium Chloride 20 Meq Packet (For Liquid) PO 40 meq DAILY EDMOND Administration Radiology Results: ITS Impressions Chest/Abdomen/Pelvis CTA 01/18/24 18:30 IMPRESSION: Nonocclusive acute subsegmental pulmonary embolus in the left lower lobe. Very small clot burden. No evidence of right heart strain. Left lower lobe pneumonia. Mild hepatomegaly. Possible cystitis. Otherwise, no acute abdominopelvic process detected. Chest/Abdomen/Pelvis CT 01/22/24 12:43 IMPRESSION: Worsening respiratory status with bibasilar consolidation and interstitial thickening with patchy groundglass opacification bilaterally -findings suggesting ARDS. Mural thickening within the rectosigmoid colon with multiple diverticula and prominence of the vasa recta, possibly early diverticulitis. Interval development of perihepatic fluid, compared with previous study. Renal Ultrasound 01/24/24 12:05 IMPRESSION: 1. Normal kidneys without hydronephrosis. Abdomen X-Ray 01/25/24 14:53 IMPRESSION: NG tube in distal stomach Nonspecific abdomen Venous Doppler Study 01/30/24 14:52 IMPRESSION: 1. Small amount of nonocclusive deep venous thrombosis at the right common femoral vein reported site of a recently removed central venous catheter. No other deep venous thrombosis in the remainder of the bilateral lower limbs. Head CT 01/31/24 08:55 IMPRESSION: Cerebral atherosclerosis and chronic small vessel ischemic changes of the cerebral white matter No acute intracranial finding Moderate mucoperiosteal thickening of the left sphenoid sinus and partial opacification of mastoid air cells bilaterally Chest X-Ray 02/03/24 06:03 Impression: Stable patchy airspace disease with underlying chronic interstitial disease. Correlate for superimposed pneumonia or pulmonary edema. Stable support line. Labs Labs: Laboratory Results - last 24 hr 02/04/24 02/04/24 02/04/24 11:35 15:05 19:53 WBC RBC Hgb Hct MCV MCH MCHC RDW Plt Count MPV Sodium Potassium Chloride Carbon Dioxide Anion Gap BUN Creatinine Estim Creat Clear Calc Estimated GFR Glucose POC Capillary Glucose 213 H 161 H 107 H Calcium Magnesium Total Bilirubin AST ALT Alkaline Phosphatase Total Protein Albumin 02/04/24 02/05/24 02/05/24 23:44 03:18 07:28 WBC 10.2 H RBC 2.52 L Hgb 7.7 L Hct 25.4 L MCV 100.8 H MCH 30.6 MCHC 30.3 L RDW 15.1 H Plt Count 305 MPV 10.1 Sodium 141 Potassium 4.2 Chloride 109 H Carbon Dioxide 25 Anion Gap 7 BUN 13 D Creatinine 1.20 H Estim Creat Clear Calc 35 Estimated GFR 44 L Glucose 104 POC Capillary Glucose 108 H 105 Calcium 7.5 L Magnesium 1.7 Total Bilirubin 0.8 AST 44 H ALT 48 H Alkaline Phosphatase 133 H Total Protein 7.0 Albumin 3.2 L Quality VTE Prophylaxis VTE prophylaxis: pharmacologic ordered (Heparin GGT per protocol)
[2024-02-05 11:33] LABS: Glucose Point of Care 103 mg/dl (65-105)
[2024-02-05] MEDS: EPOETIN ALFA-EPBX 10,000 UNITS/ML VIAL 10000 UNITS SUB-Q (12:19)
[2024-02-05 15:42] LABS: Glucose Point of Care 108 mg/dl (65-105)
[2024-02-05 19:51] LABS: Glucose Point of Care 113 mg/dl (65-105)
--- NOTE | 2024-02-05 22:37 | PC.NURSE ---
This patient, Frances Lazo, was transferred to [[id number] ] on 02/05/24 at 2238. Personal belongings sent with patient. Report given to [ Ron ramsay]. Appropriate documentation sent with patient.
[2024-02-06] VITALS (10 sets, daily range): BP systolic 111–141; BP diastolic 47–48; PULSE 64–69; RESP 18–20; TEMP 36.5; O2SAT 90–95
[2024-02-06] MEDS: IPRATROPIUM 0.5 MG/ALBUTEROL SULFATE 2.5 MG AMPUL.NEB 3 ML INHALATION ×3 (01:50→14:02)
[2024-02-06] MEDS: HYDROcodone/acetaminophen (*CRX) 5-325 MG TABLET 1 TAB PO ×2 (01:59→15:11)
[2024-02-06] MEDS: LEVOTHYROXINE SODIUM 112 MCG TABLET PO (05:28)
[2024-02-06 06:43] LABS: Hematocrit 29.3 % (37.0-47.0); Hemoglobin 9.1 g/dL (12.0-15.0); Mean Corpuscular HGB Conc 31.1 g/dl (32-36); Mean Corpuscular Volume 99.7 fl (80-100); Platelet Count Result 372 k/mm3 (150-375); Red Blood Count 2.94 M/mm3 (4.2-5.4); Red Cell Distribution Width 15.1 % (11.5-14.5); White Blood Count 11.7 K/mm3 (4.5-10.0)
[2024-02-06 07:00] LABS: Alanine Aminotransferase 45 U/L (6-35); Albumin Level 3.8 g/dL (3.5-5.1); Alkaline Phosphatase 162 U/L (38-126); Anion Gap 8 mmol/L (4-12); Aspartate Amino Transferase 47 U/L (14-36); Bilirubin,Total 1.1 mg/dL (0.2-1.3); Blood Urea Nitrogen 11 mg/dL (7-17); Calcium 8.3 mg/dL (8.4-10.2); Carbon Dioxide 22 mmol/L (22-30); Chloride 109 mmol/L (98-107); Estimated CRCL calculation 39 ml/min; Estimated Glomerular Filt Rate 49; Glucose 107 mg/dL (65-110); Magnesium 1.5 mg/dL (1.6-2.3); Sodium 139 mmol/L (137-145)
[2024-02-06 07:44] LABS: Glucose Point of Care 96 mg/dl (65-105)
[2024-02-06] MEDS: AMOXICILLIN/CLAVULANATE K 875-125 MG TAB 1 TABLET PO (09:16)
[2024-02-06] MEDS: ASPIRIN 81 MG CHEWABLE TABLET PO (09:16)
[2024-02-06] MEDS: SERTRALINE HCL 50 MG TABLET 100 MG PO (09:17)
[2024-02-06] MEDS: PANTOPRAZOLE 40 MG TABLET PO (09:17)
[2024-02-06] MEDS: POTASSIUM CHLORIDE 20 MEQ PACKET (FOR LIQUID) 40 MEQ PO (09:17)
[2024-02-06] MEDS: CLOPIDOGREL BISULFATE 75 MG TABLET PO (09:17)
[2024-02-06] MEDS: ATORVASTATIN 40 MG TABLET PO (09:17)
[2024-02-06] MEDS: ACETAMINOPHEN 325 MG TABLET 650 MG PO (09:22)
--- NOTE | 2024-02-06 10:50 | P.DS_ITS ---
DS: Admitting Diagnosis Discharge Date 02/06/2024 Admitting Diagnosis Cough and shortness of breath DS: Discharge Diagnosis Discharge Diagnosis (1) Acute respiratory failure: Code(s): J96.00 - Acute respiratory failure, unspecified whether with hypoxia or hypercapnia Status: Acute (2) Pulmonary embolism: Code(s): I26.99 - Other pulmonary embolism without acute cor pulmonale Status: Acute (3) Acute kidney injury: Code(s): N17.9 - Acute kidney failure, unspecified Status: Acute (4) Diverticulitis: Code(s): K57.92 - Diverticulitis of intestine, part unspecified, without perforation or abscess without bleeding Status: Acute (5) Community acquired pneumonia: Qualifiers: Laterality: left Lung location: lower lobe of lung Qualified Code(s): J18.9 - Pneumonia, unspecified organism Code(s): J18.9 - Pneumonia, unspecified organism Status: Acute (6) Leg pain, bilateral: Code(s): M79.604 - Pain in right leg; M79.605 - Pain in left leg Status: Acute (7) Anemia: Code(s): D64.9 - Anemia, unspecified Status: Acute (8) Ileus: Code(s): K56.7 - Ileus, unspecified Status: Acute DS: Summary Hospital Course Hospital Course: This is a 68-year-old female with PMH of DM type 2, CAD, tobacco use who presents to the ED for chief complaint of cough and dyspnea over the past 3 days. Family member is here reports patient had fever of 102? F at home. Cough is productive but no hemoptysis. Patient states that she felt very dizzy and off balance today. Family member states that she fell once and nearly fell again while trying to get to the bathroom. Patient reports she has been feeling unwell and has had some upper abdominal pain as well. States that she quit smoking a week and half ago. additional complaints of diarrhea but no vomiting. Additional complaints of urinary frequency but no dysuria or hematuria. Acute Respiratory failure secondary to pneumonia and PE. Patient appears to have developed ARDS Patient had became CPAP dependent 100% FiO2. 01/17: Patient presented with hypotension, elevated lactic acid levels, fevers, cough, hypoxia -received 30 mL/kg IV fluids -started on Levophed via femoral central line 01/17: CT chest abdomen and pelvis IMPRESSION: Nonocclusive acute subsegmental pulmonary embolus in the left lower lobe. Very small clot burden. No evidence of right heart strain. Left lower lobe pneumonia. Mild hepatomegaly. Possible cystitis. Otherwise, no acute abdominopelvic process detected. 01/18 Echo: Summary 1. Left ventricular systolic function is normal, estimated at 55-60%. 2. There is mildly increased left ventricular wall thickness. 3. The left ventricular diastolic function is grade I diastolic dysfunction. 4. There is trace mitral valve regurgitation. 5. There is trace tricuspid valve regurgitation. 6. No pulmonary hypertension, estimated pulmonary arterial systolic pressure is 41 mmHg. 7. Right ventricular systolic function is normal. 8. Right ventricular chamber dimension is normal. 01/20 patient intubated for discussion with the patient and her daughter. ABG reviewed and low tidal volume ventilation. PEEP set at 12 tidal volume at 300 mL. FiO2 is 100%. Increase respiratory rate to 26 Post intubation patient was coughing and gagging leading to desaturation hence was given rocuronium. Patient was started on Nimbex infusion along with sedation at this time. Patient was placed in prone position CT scan done yesterday showed IMPRESSION: Worsening respiratory status with bibasilar consolidation and interstitial thickening with patchy groundglass opacification bilaterally -findings suggesting ARDS. Status post steroids for pneumonia and ARDS Status post Nimbex 01/22 sputum grew MRSA 01/25: Started dialysis with removal of 1066 mL in fluid removal -Continue Bronchodilators 01/28: Diuresed well with Bumex with 1400 mL in negative fluid balance. Blood culture, sputum and urine no growth. 01/29: Discussed with Nephrology, diuresed well with Bumex with approximately 1600 mL in negative fluid balance 01/30: Chest x-ray - Stable or mildly improved extensive bilateral pulmonary infiltrates, most prominent in the lower lobes, especially left lower lobe. 01/30: Patient was placed on SBT, did very well, are is be eyes were 20s to 30s, post SBT ABG load good, patient was extubated only to require oxygen later in the evening and was placed on high-flow therapy. CT brain, showed Moderate mucoperiosteal thickening of the left sphenoid sinus and partial opacification of mastoid air cells bilaterally -given patient continues to have low-grade fevers, started patient on Unasyn for possible sinusitis (01/30) / received an IVC filter into right groin 02/03: Currently on 02@2LNC with Sa02 93%. Patient initially presented with Acute kidney injury likely related to hypotension, septic shock She was adequately fluid-resuscitated and came off of IV fluids Creatinine normalized initially Patient did receive contrast for CTA Creatinine increased post intubation. 01/22 Lasix IV x1 Patient was given 25% albumin and will give 5% albumin. Will avoid liberal fluids due to patient's respiratory status. Patient is positive her I/O balance 01/25: Creatinine continues to increase along with elevated BUN today. Urine output also decreasing. Dr Dunbar discussed with nephrology and family will plan to initiate dialysis. Temporary dialysis catheter placed after obtaining consent from patient's family. Discussed with nephrology. Senior Business Development Manager will arrange for dialysis 01/25: Started dialysis with 1066 mL in fluid removal 01/26: Dialysis with 883 mL in fluid removal 01/27: Dialysis with 3000 mL in fluid removal 01/28: Diuresed with Bumex with good urine output and approx 1400 mL in negative fluid balance 01/29: Diuresis with Bumex with good urine output and approx 1600 mL in negative fluid balance 01/30: Diuresis Bumex with good urine output in approximately 2000 mL in negative fluid balance 01/31: Discussed with Nephrology, will hold diuresis today since patient's potassium is low and being repleted. If she does not have good urine output during the end of the day will diurese with Bumex per Nephrology 02/02: Urine output electrolytes reviewed. Creatinine stable good urine output. Further management by Nephrology 12/4: Nephrology following. BUN 18, Creatinine 1.20, and GFR 44. 12/5: Nephrology signed off and dialysis catheter removed today. Transitioned to oral antibiotics. Remains on 02@2LNC. Discharge to rehab Status at Discharge Functional status at discharge: uses cane/walker Overall status at discharge: patient is not back to baseline Time Spent with Patient Time attestation: Total time spent providing and/or coordinating discharge services: Time spent: Greater than 30 minutes Exam Const: General: no acute distress and uncomfortable Other: Pain in legs is an 8 , constant, and aching. Eyes: Sclera: sclerae normal Resp: Effort & Inspection: normal respiratory effort Auscultation: clear to auscultation bilaterally and diminished lung sounds Cardio: Rate: regular rate Rhythm: regular rhythm GI: GI Palp: Yes Soft to palpation Auscultation: normal bowel sounds Skin: Other: Ecchymosis to left groin from accessing attempt with small soft improving hematoma. Right groin s/p IVC filter placement with no swelling or ecchymosis. Extrem: General: no pedal edema Psych: Mental Status: mental status grossly normal Affect: normal affect DS: Data Data Completed and Pending Labs on day of discharge: Labs from last 24 hours 02/06/24 02/06/24 02/05/24 07:41 06:16 19:44 WBC 11.7 H RBC 2.94 L Hgb 9.1 L Hct 29.3 L MCV 99.7 MCH 31.0 MCHC 31.1 L RDW 15.1 H Plt Count 372 MPV 10.0 Sodium 139 Potassium 4.0 Chloride 109 H Carbon Dioxide 22 Anion Gap 8 BUN 11 Creatinine 1.10 H Estim Creat Clear Calc 39 Estimated GFR 49 L Glucose 107 POC Capillary Glucose 96 113 H Calcium 8.3 L Magnesium 1.5 L Total Bilirubin 1.1 AST 47 H ALT 45 H Alkaline Phosphatase 162 H Total Protein 8.0 Albumin 3.8 02/05/24 02/05/24 15:33 11:29 WBC RBC Hgb Hct MCV MCH MCHC RDW Plt Count MPV Sodium Potassium Chloride Carbon Dioxide Anion Gap BUN Creatinine Estim Creat Clear Calc Estimated GFR Glucose POC Capillary Glucose 108 H 103 Calcium Magnesium Total Bilirubin AST ALT Alkaline Phosphatase Total Protein Albumin Discharge Plan Discharge Attending physician on discharge: Jovon Gracia Consulting providers: Carli Nelson,Sriraj T.; Manish Linares Discharging Clinician: Cee Martins Anticipated Discharge Date/Time: 02/06/24 13:00 Patient Disposition: SNF Activity: july shower Diet: heart healthy and other - see discharge instructions Discharge Instructions: * Heart healthy, minced and moist level 5, and nutritional ice cream TID. * O2@2LNC. Patient Instructions: Clopidogrel (By mouth), Pulmonary Embolism (DC), Diverticulitis (DC), Pain Management (DC), Community Acquired Pneumonia (DC), Removal of a Central Line, PICC, or Midline Catheter (GEN), Inferior Vena Cava (IVC) Filter Placement (DC) Stand Alone Forms: General Discharge Information Follow-up/Referrals: Marcy,Adan Flowers MD [Primary Care Provider] - 2 Weeks Discharge Medications: New amoxicillin-pot clavulanate 875-125 mg tablet 1 tablet PO Q12H Qty: 1 0RF polyethylene glycol 3350 [Miralax] 17 gram Powder In Packet 17 g PO QAM PRN (Reason: Constipation) Qty: 30 0RF pantoprazole 40 mg Tablet,Delayed Release (Dr/Ec) 40 mg PO QAM Qty: 30 0RF hydrocodone-acetaminophen 5-325 mg Tablet 1 tablet PO Q4H PRN (Reason: Pain Rated 7-10) Qty: 30 0RF Continued metformin 500 mg tablet extended release 24 hr 500 mg PO BID sertraline 100 mg tablet 100 mg PO DAILY clopidogrel 75 mg tablet 75 mg PO DAILY amlodipine 2.5 mg tablet 2.5 mg PO DAILY furosemide 40 mg tablet 40 mg PO DAILY levothyroxine 112 mcg tablet 112 mcg PO DAILY atorvastatin 40 mg tablet 40 mg PO DAILY nitroglycerin 0.4 mg tablet, sublingual 4 mg sublingual PRN PRN (Reason: Chest Pain) Rx Instructions: Do not exceed more than 3 doses dicyclomine 10 mg capsule 10 mg PO TID aspirin 81 mg Tablet 81 mg PO DAILY Discontinued lansoprazole 15 mg capsule,delayed release(DR/EC) 15 mg PO DAILY Date of admission: 01/18/24 23:30 Primary Care Provider: MarcyAdan Admitting Provider: Lisa Anderson Attending physician on admission: Lisa Anderson Condition: Improved Hospitalist MIPS Heart Failure (Exclusion) Patient has history of Heart Transplant or Left Ventricular Assistive Device?: No IF YES, STOP HERE Heart Failure (Qualifier) Patient has current or prior documentation of LVEF less than or equal to 40%, or mod/servere depressed LVSF?: No IF NO, STOP HERE
[2024-02-06] MEDS: MAGNESIUM SULF 2 GM/WATER 50ML 2 GM/50 ML BAG IVPB (11:03)
[2024-02-06 11:37] LABS: Glucose Point of Care 121 mg/dl (65-105)
== END 2024-02-06 15:34 | DRG 870 ==
LOC: ANHED 17:15 → ANHICU 22:56 → ANHIMU 02-05 11:55 → ANH3MEDSUR 02-06 11:46 → ANHICU 02-09 09:27 → ANHIMU 02-09 09:27
PROVIDERS: Internal Medicine; Internal Medicine Nephrology; Surgery; Admitting Provider Internal Medicine; Emergency Provider Physician Assistant; PCP Internal Medicine; Visit Provider Internal Medicine
PROC: 06H03DZ Insertion of Intraluminal Device into Inferior Vena Cava, Percutaneous Approach (ICD-10-PCS; principal; 2024-02-02 11:30)
DX: A41.9 Sepsis, unspecified organism (principal); I26.93 Single subsegmental thrombotic pulmonary embolism without acute cor pulmonale; J18.9 Pneumonia, unspecified organism; R65.21 Severe sepsis with septic shock; J80 Acute respiratory distress syndrome; K22.10 Ulcer of esophagus without bleeding; J44.0 Chronic obstructive pulmonary disease with (acute) lower respiratory infection; N17.9 Acute kidney failure, unspecified; K57.32 Diverticulitis of large intestine without perforation or abscess without bleeding; K56.7 Ileus, unspecified; I50.32 Chronic diastolic (congestive) heart failure; G93.40 Encephalopathy, unspecified; I82.411 Acute embolism and thrombosis of right femoral vein; E78.5 Hyperlipidemia, unspecified; I11.0 Hypertensive heart disease with heart failure; I25.10 Atherosclerotic heart disease of native coronary artery without angina pectoris; E03.9 Hypothyroidism, unspecified; E11.65 Type 2 diabetes mellitus with hyperglycemia; K74.00 Hepatic fibrosis, unspecified; D63.1 Anemia in chronic kidney disease; B95.62 Methicillin resistant Staphylococcus aureus infection as the cause of diseases classified elsewhere; E87.5 Hyperkalemia; Z87.891 Personal history of nicotine dependence; Z95.5 Presence of coronary angioplasty implant and graft; Z90.49 Acquired absence of other specified parts of digestive tract; Z79.82 Long term (current) use of aspirin; Z79.84 Long term (current) use of oral hypoglycemic drugs; Z87.11 Personal history of peptic ulcer disease; Z20.822 Contact with and (suspected) exposure to COVID-19; Z99.2 Dependence on renal dialysis
CPT/HCPCS: 31500; 36415; 36430; 36556; 36600; 37191; 70450; 71045; 71250; 71275; 74018; 74019; 74176; 74177; 76775; 80048; 80053; 80202; 81001; 81050; 82010; 82375; 82550; 82570; 82607; 82728; 82746; 82805; 82948; 83036; 83050; 83540; 83550; 83605; 83690; 83735; 83880; 84100; 84145; 84156; 84300; 84443; 84478; 84484; 84540; 85014; 85018; 85025; 85027; 85610; 85730; 85999; 86140; 86704; 86706; 86850; 86900; 86901; 86923; 87040; 87070; 87077; 87086; 87181; 87205; 87340; 87449; 87637; 87641; 87899; 92610; 93005; 93970; 94002; 94003; 94640; 96361; 96365; 96367; 97110; 97162; 97166; 97530; 97535; 99291; A9270; C1751; C1752; C1880; C1894; C8929; G0257; G0378; J0295; J0330; J0456; J0613; J0696; J1644; J1720; J1815; J1836; J1939; J1940; J2003; J2250; J2270; J2405; J2470; J2704; J3010; J3370; J3475; J3480; J7030; J7120; P9016; P9045; P9047; Q5105; Q9957; Q9967

== ENCOUNTER 2024-05-11 11:04 | Outpatient (CLI) | payer MEDICARE, SELFPAY ==
[2024-05-11 11:45] LABS: Hematocrit 38.3 % (37.0-47.0); Hemoglobin 12.1 g/dL (12.0-15.0); Mean Corpuscular HGB Conc 31.6 g/dl (32-36); Mean Corpuscular Hemoglobin 28.7 pg (26-34); Mean Corpuscular Volume 90.8 fl (80-100); Mean Platelet Volume 10.7 fl (7.4-10.4); Platelet Count Result 228 k/mm3 (150-375); Red Blood Count 4.22 M/mm3 (4.2-5.4); Red Cell Distribution Width 15.4 % (11.5-14.5); White Blood Count 10.2 K/mm3 (4.5-10.0)
[2024-05-11 11:57] LABS: Prothrombin Time 13.6 Seconds (11.1-14.7)
[2024-05-11 11:58] LABS: Alanine Aminotransferase 31 U/L (6-35); Albumin Level 4.7 g/dL (3.5-5.1); Alkaline Phosphatase 180 U/L (38-126); Anion Gap 13 mmol/L (4-12); Aspartate Amino Transferase 36 U/L (14-36); Bilirubin,Total 0.6 mg/dL (0.2-1.3); Blood Urea Nitrogen 25 mg/dL (7-17); Calcium 9.5 mg/dL (8.4-10.2); Carbon Dioxide 24 mmol/L (22-30); Chloride 101 mmol/L (98-107); Estimated Glomerular Filt Rate > 60; Glucose 178 mg/dL (65-110); Potassium 4.9 mmol/L (3.4-5.0); Sodium 138 mmol/L (137-145)
--- OUTSIDE RECORDS SUMMARY | 2024-05-11 12:50 | XMS_ITS | CONTINUITY OF CARE DOCUMENT ---
Author Name reina huang Address Unknown Organization [facility] Address [id number] [place] [address] [address] [place] [address] Phone [phone] Care Team Providers Care Moving Picture Operator Name Role Phone Min Blount MD Unavailable [phone] BERNICE SCHMID MD Unavailable BERNICE SCHMID MD Unavailable [phone] PROBLEMS Condition Status Date Provider Notes TOBACCO ABUSE active Marian Christiansen ALLERGIES Allergy Name Onset Date Reaction Criticality Status NAPROXEN High Criticality active SULFA High Criticality active INSURANCE PROVIDERS Payer name Policy type / Coverage type [place] [employer] ID AARP MEDICARE ADVANTAGE HMO-POS HMO [id number]
--- OUTSIDE RECORDS SUMMARY | 2024-05-11 12:50 | XMS_ITS | Clinical Summary ---
Author Organization [facility] Address [address] [place] [address] Care Team Providers Care Truck Safety Inspector Name Role Phone Adan Caldera MD Primary Care Provider [phone] Allergies Active Allergy Reactions Criticality Noted Date Comments Naproxen Rash High 04/21/2009 Sulfa (Sulfonamide Antibiotics) Hives High 04/03 Medications OneTouch Delica Plus Lancet 30 gauge misc USE TO TEST BLOOD SUGAR TWICE DAILY 100 each 1 05/02/19 22 Active OneTouch Verio test strips stripIndicatio ns:Type 2 diabetes mellitus without complication, without long-term current use of insulin (HCC) USE TO TEST BLOOD SUGAR TWICE DAILY 200 strip 1 11/26/19 22 Active ciprofloxacin (CILOXAN) 0.3 % ophthalmic solution Administer 1 drop into both eyes every 2 (two) hours Administer 1 drop, every 2 hours, while awake, for 2 days. Then 1 drop, every 4 hours, while awake, for the next 5 days. 10 mL 03/11/19 23 Active senna-docusate (PERICOLACE) 8.6-50 mg Take 1 tablet by mouth daily 14 tablet 11/12/19 23 Active nitroglycerin (NITROSTAT) 0.[address] 1 tablet (0.4 mg total) under the tongue every 5 (five) minutes as needed for chest pain May repeat dose q 5 min, up to 3 doses total 90 tablet 05/22/19 24 025 Active amLODIPine (NORVASC) 2.5 mg tablet Take 1 tablet (2.5 mg total) by mouth daily 30 tablet 11 05/23/19 24 025 Active aspirin 81 mg enteric coated tablet Take 1 tablet (81 mg total) by mouth daily Active atorvastatin (LIPITOR) 20 mg tablet Take 1 tablet (20 mg total) by mouth daily 90 tablet 4 11/24/19 24 025 Active furosemide (LASIX) 40 mg tablet Take 1 tablet (40 mg total) by mouth daily 90 tablet 1 01/15/20 24 025 Active sertraline (ZOLOFT) 100 mg tablet TAKE 1 TABLET BY MOUTH DAILY 90 tablet 2 02/09/20 24 Active dicyclomine (BENTYL) 10 mg capsule Take 1 capsule (10 mg total) by mouth 4 (four) times a day before meals and nightly 02/20/20 24 Active oxygenIndicati ons:Dyspnea Administer 3 L/min into each nostril continuously Active pantoprazole DR (PROTONIX) 40 mg EC tablet Take 1 tablet (40 mg total) by mouth daily Active levothyroxine (SYNTHROID) 112 mcg tablet TAKE 1 TABLET BY MOUTH EVERY MORNING BEFORE BREAKFAST 90 tablet 1 04/03/19 25 Active furosemide (LASIX) 20 mg tablet TAKE 2 TABLETS(40 MG) BY MOUTH DAILY 180 tablet 1 04/05/19 25 Active clopidogreL (PLAVIX) 75 mg tablet TAKE 1 TABLET BY MOUTH EVERY DAY 90 tablet 3 05/06/19 25 Active metFORMIN (GLUCOPHAGE) 500 mg tablet TAKE 2 TABLETS BY MOUTH TWICE DAILY 360 tablet 3 05/06/19 25 Active clopidogreL (PLAVIX) 75 mg tablet TAKE 1 TABLET BY MOUTH EVERY DAY 90 tablet 3 04/18/19 24 025 Discontinued metFORMIN (GLUCOPHAGE) 500 mg tablet TAKE 2 TABLETS BY MOUTH TWICE DAILY 360 tablet 2 08/10/19 24 025 Discontinued Active Problems Problem Noted Date Diagnosed Date Acute pulmonary embolism without acute cor pulmo nale 04/08/2024 Pneumonia of both lungs due to infectious organi sm 04/06/2024 Assessment & Plan (04/11/2024 1:34 PM PIECE JOBBER): MRSA pna in Jan 2024. Resolved. Other pulmonary embolism without acute cor pulmo nale 04/06/2024 Assessment & Plan (04/11/2024 1:33 PM PIECE JOBBER): No indication to resume anticoagulation at this time. Pt did not complete 3 month treatment given GI bleeding. Assessment & Plan (04/06/2024 1:09 PM PIECE JOBBER): Status post filter. Doing well. Elevated left ventricular end-diastolic pressure (LVEDP) 08/21/2023 Assessment & Plan (04/19/2024 4:15 PM PIECE JOBBER): LHC from 06/02/23 with elevated LVEDP and complaint of GONGORA. Has risk factors for DD. Lasix dose increased with resolution of her dyspnea on exertion. Continue adequate blood pressure and heart rate control. Continue Lasix to 40 mg daily. Will avoid SGLT2i as she has a history of frequent yeast infections. Can consider MRA in future needed. Assessment & Plan (11/24/2023 11:40 AM CDT): LHC from 06/02/23 with elevated LVEDP and complaint of GONGORA. Has risk factors for DD. Lasix dose increased during last office visit with resolution of her dyspnea on exertion. Continue adequate blood pressure and heart rate control. Continue Lasix to 40 mg daily. Will avoid SGLT2i as she has a history of frequent yeast infections. Can consider MRA in future needed. Assessment & Plan (08/21/2023 1:10 PM CDT): LHC from 06/02/23 with elevated LVEDP and complaint of GONGORA. Has risk factors for DD. Continue adequate blood pressure and heart rate control. Will trial increase in Lasix to 40 mg daily and reassess symptoms. BMP in 1 week following increased Lasix dose. Will avoid SGLT2i as she has frequent yeast infections. Can consider MRA. Coronary artery disease invo lving [place] coronary artery of [place] heart without angina pectoris 05/22/2023 Assessment & Plan (04/19/2024 4:15 PM PIECE JOBBER): CAD s/p PCI of LAD with HI x 3. LHC from 06/02/23 noted patent stent in the left main LAD with focal area of mild InStent restenosis 20-30% LAD and elevated LVED. She denies any angina. Continue Atorvastatin, amlodipine and plavix. Assessment & Plan (11/24/2023 11:39 AM CDT): CAD s/p PCI of LAD with HI x 3. LHC from 06/02/23 noted patent stent in the left main LAD with focal area of mild InStent restenosis 20-30% LAD and elevated LVED. She denies any angina. Continue Atorvastatin, amlodipine and plavix. Educated on smoking cessation. Assessment & Plan (10/13/2023 3:21 PM CDT): No evidence of any active CAD Assessment & Plan (08/21/2023 1:08 PM CDT): CAD s/p PCI of LAD with HI x 3. LHC from 06/02/23 noted patent stent in the left main LAD with focal area of mild InStent restenosis 20-30% LAD and elevated LVED. She denies any chest pain today. Continues to have GONGORA. Continue Atorvastatin, amlodipine and plavix. Educated on smoking cessation. Assessment & Plan (05/22/2023 9:45 AM CDT): CAD s/p PCI of LAD with HI x 3. Now with chest pain and GONGORA over past 3 months that is worsening with concerning symptoms for ischemic etiology. Blood pressure elevated today. Start Amlodipine 2.5 mg daily for both anti-anginal and for BP. I will send her in as needed SL nitro. Educated provided to patient on how to take and when to call EMS. Continue Atorvastatin and plavix. Will discuss with Dr. Roque regarding stress test vs [facility]. ED precautions given to patient. Educated on smoking cessation. Essential hypertension 05/22/2023 Assessment & Plan (04/19/2024 4:15 PM PIECE JOBBER): Well controlled. Continue amlodipine. Assessment & Plan (04/06/2024 1:10 PM PIECE JOBBER): BP at target Assessment & Plan (11/24/2023 11:39 AM CDT): Well controlled. Continue amlodipine. Assessment & Plan (10/13/2023 3:21 PM CDT): BP at target continue medication for target directed therapy Assessment & Plan (08/21/2023 1:11 PM CDT): Well controlled. Continue amlodipine. Assessment & Plan (05/22/2023 9:46 AM CDT): Blood pressure elevated today. Per review of chart has been elevated at past visits as well. Start Amlodipine 2.5 mg daily for both anti-anginal and for BP. Clostridium difficile diarrhea 10/10/2022 Assessment & Plan (10/10/2022 3:15 PM CDT): Will continue vancomycin at this time. Check repeat stool for C diff. Check CBC and CMP. Refer to GI. History of percutaneous coronary intervention Tobacco use 03/11/2021 Assessment & Plan (11/24/2023 11:39 AM CDT): Educated on importance of smoking cessation. Assessment & Plan (08/21/2023 11:12 AM CDT): Educated on importance of smoking cessation. Assessment & Plan (05/22/2023 9:47 AM CDT): Educated on importance of smoking cessation. Chest pain 12/13/2020 Assessment & Plan (08/21/2023 1:07 PM CDT): This has resolved. LHC from 06/02/23 noted patent stent in the left main LAD with focal area of mild InStent restenosis 20-30% LAD. Continue therapy for CAD per plan below. Assessment & Plan (05/22/2023 9:47 AM CDT): See plan under CAD Assessment & Plan (12/13/2020 9:40 AM CDT): EKG done today Stress ECHO ordered Chest xray Type 2 diabetes mellitus wit hout complication, without long-term current use of insulin 04/05/2020 Overview (04/05/2020): A1c doing well Assessment & Plan (04/06/2024 1:10 PM PIECE JOBBER): Stable. Assessment & Plan (10/13/2023 3:24 PM CDT): Long discussion today. I truly feel the patient needs insulin. However she is adamantly opposed to insulin at this time. She indicates she will try diet and exercise. Check labs Hyperlipidemia 04/05/2020 Overview (04/05/2020): Eventually will place on statin for now will evaluate abdominal pain check CMP see BC amylase lipase urinalysis Assessment & Plan (04/19/2024 4:14 PM PIECE JOBBER): LDL at goal from labs on 10/13/2023. Continue Atorvastatin 40 mg daily. Assessment & Plan (04/06/2024 1:10 PM PIECE JOBBER): Stable. Assessment & Plan (11/24/2023 11:38 AM CDT): LDL at goal from labs on 10/13/2023. Continue Atorvastatin 40 mg daily. Assessment & Plan (10/13/2023 3:24 PM CDT): stable Assessment & Plan (08/21/2023 1:10 PM CDT): Continue Atorvastatin 40 mg daily. Assessment & Plan (05/22/2023 9:45 AM CDT): Continue Atorvastatin 40 mg daily. Hypothyroidism 04/05/2020 Overview (04/05/2020): Check labs Assessment & Plan (04/06/2024 1:10 PM PIECE JOBBER): Continue medication. Assessment & Plan (10/13/2023 3:21 PM CDT): Check TSH Assessment & Plan (12/13/2020 9:41 AM CDT): Labs due today Tobacco dependence syndrome 04/21/2009 Encounters Date Type Department Care Team Description 05/10/2024 11:00 AM CDT Ancillary Procedure [facility] Vascular Lab at the [address] 8th [place] [address] [place] [address] Personal history of PE (pulmonary embolism) 05/05/2024 Telephone [facility] Radiology [address] [place] [address] 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 RN 05/04/2024 Orders Only [facility] Radiology [address] [place] [address] 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 RN Acute pulmonary embolism without acute cor pulmonale, unspecified pulmonary embolism type (HCC) (Primary Dx) 05/03/2024 1:00 PM PIECE JOBBER Office Visit [facility] Radiology, Interventional Radiology [address] [facility] [address] [place] [address] Jumana Parker MD S/P insertion of IVC (inferior vena caval) filter (Primary Dx); Other chronic pulmonary embolism without acute cor pulmonale (HCC) 04/19/2024 2:30 PM PIECE JOBBER Office Visit [facility] Cardiology [facility] 8th [place] [address] [place] [address] Adnrés Black NP Coronary artery disease involving [place] coronary artery of [place] heart without angina pectoris (Primary Dx); Mixed hyperlipidemia; Essential hypertension; Elevated left ventricular end-diastolic pressure (LVEDP) 04/19/2024 10:00 AM PIECE JOBBER [facility] [address] [place] [address] [address] [place] [address] Hematoma of groin, subsequent encounter 04/19/2024 Telephone [facility] Radiology [address] [place] [address] 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 RN 04/16/2024 Telephone [facility] [address] [facility] [address] [place] [address] Idania Han RN APPT CONFIRMATION 04/13/2024 Telephone [facility] [address] [place] [address] Ida Chawla MA 04/09/2024 11:55 AM PIECE JOBBER Lab [facility] ([facility] [address] [place] [address] Type 2 diabetes mellitus without complication, without long-term current use of insulin (HCC) 04/08/2024 3:00 PM PIECE JOBBER Office Visit [facility] Pulmonary [address] [place] [address] Medical Office Building [address] [place] [address] Fani Huff MD Acute pulmonary embolism without acute cor pulmonale, non occlusive 01/18/24 (HCC) (Primary Dx); GONGORA (dyspnea on exertion); S/P insertion of IVC (inferior vena caval) filter; Former tobacco use; Pulmonary emphysema, unspecified emphysema type (HCC); Personal history of PE (pulmonary embolism) 04/08/2024 11:47 AM PIECE JOBBER - 04/08/2024 11:59 PM PIECE JOBBER Hospital Encounter [facility] PFT Lab [address] [facility] Medical Office Building [address] [place] [id number] Acute pulmonary embolism without acute cor pulmonale, unspecified pulmonary embolism type (HCC) Discharge Disposition: Discharge to home or self care 04/08/2024 11:03 AM PIECE JOBBER - 04/08/2024 11:59 PM PIECE JOBBER Hospital Encounter [facility] Imaging [address] [place] [address] Acute pulmonary embolism without acute cor pulmonale, unspecified pulmonary embolism type (HCC) Discharge Disposition: Discharge to home or self care 04/07/2024 [facility] [address] [place] [address] Ida Chawla MA 04/07/2024 Orders Only [facility] [address] [place] [address] [facility] [place] [address] Ida Chawla MA Type 2 diabetes mellitus without complication, without long-term current use of insulin (HCC) (Primary Dx) 04/06/2024 2:35 PM PIECE JOBBER Lab [facility] ([facility]) [address] [place] [address] Type 2 diabetes mellitus without complication, without long-term current use of insulin (HCC); Essential hypertension 04/06/2024 12:30 PM PIECE JOBBER Office Visit [facility] [address] [place], [place] [address] [place] [address] Adan Caldera MD Type 2 diabetes mellitus without complication, without long-term current use of insulin (HCC) (Primary Dx); Mixed hyperlipidemia; Hypothyroidism, unspecified type; Essential hypertension; Other acute pulmonary embolism without acute cor pulmonale (HCC) 03/23/2024 Orders Only [facility] Scheduling [address] [place] [address] Fani Huff MD Acute pulmonary embolism without acute cor pulmonale, unspecified pulmonary embolism type (HCC) (Primary Dx) 03/12/2024 Orders Only [facility] Pulmonary [address] [place] [address] [facility] 8th [place] [address] [place] [address] Fani Huff MD Acute pulmonary embolism without acute cor pulmonale, unspecified pulmonary embolism type (HCC) (Primary Dx) 03/08/2024 Telephone [facility] [address] [place], [place] [address] [facility] [place] [address] Saira Mcguire NP 03/05/2024 2:21 PM PIECE JOBBER - 03/05/2024 11:59 PM PIECE JOBBER Hospital Encounter [facility] ([facility]) [address] [place] [address] Left inguinal pain; Right inguinal pain; S/P IVC filter Discharge Disposition: Discharge to home or self care 03/01/2024 Telephone [facility] [address] [facility] [address] [place] [address] Herman Hood MD UTI 02/23/2024 10:30 AM PIECE JOBBER Lab [facility] ([facility]) [address] [place] [address] Fatigue, unspecified type; Acute renal failure, unspecified acute renal failure type; Anemia, unspecified type 02/23/2024 9:00 AM PIECE JOBBER Office Visit [facility] [place] [address] Saira Mcguire NP Acute pulmonary embolism without acute cor pulmonale, unspecified pulmonary embolism type (HCC) (Primary Dx); DVT (deep venous thrombosis) (HCC); Acute renal failure, unspecified acute renal failure type; Type 2 diabetes mellitus without complication, without long-term current use of insulin (HCC); Foot pain, bilateral; Anemia, unspecified type; Fatigue, unspecified type; Left inguinal pain; Right inguinal pain; S/P IVC filter; Acute respiratory failure, unspecified whether with hypoxia or hypercapnia (HCC) 02/23/2024 Telephone [facility] [address] [place] [address] Saira Mcguire NP 02/23/2024 Telephone [facility] Cardiology [address] [place] [address] 8th [place] [address] [place] [address] Amber Roque MD 02/23/2024 [facility] [address] [place], [place] [address] [place] [address] Adan Caldera MD 02/23/2024 Telephone [facility] Surgery [facility] Medical Office Building [address] [place] [address] Jessica Aguilera, VAUGHN Podiatry Referral 02/19/2024 Telephone [facility] [address] [place], [place] [address] [place] [address] Adan Caldera MD 02/13/2024 [facility] [address] [facility] [address] [place] [address] Adan Caldera MD from Last 3 Months Surgical History Surgery Date Site/Laterality Comments EYE SURGERY CHOLECYSTECTOMY CARPAL TUNNEL RELEASE CARDIAC STENT PLACEMENT 02/15/2021 PCI-s/p HI x3 to LM and LAD Medical History Medical History Date Comments Depression Diabetes mellitus (HCC) Thyroid disease Hyperlipidemia Anxiety Coronary artery disease Hypertension Family History Medical History Relation Name Comments Cancer Father Diabetes Father Diabetes Mother Relation Name Status Comments Father Mother Social History Tobacco Use Types Packs/Day Years Used Date Smoking Tobacco: Former Cigarettes 0.2 10 Q uit: 01/12/2024 Smokeless Tobacco: Never Tobacco Cessation:Counseling Given: Not Answered Comments:1PPD x 30 years prior to cutting down Alcohol Use Standard Drinks/Week Comments Never 0 (1 standard drink = 0.6 oz pur e alcohol) AUDIT-C Answer Date Recorded Q1: How often do you have a drink containing alcohol? Never 04/19/2024 Q2: How many drinks containi ng alcohol do you have on a typical day when you are drinking? Patient does not drink Q3: How often do you have si x or more drinks on one occasion? Never 04/19/2024 Hunger Vital Sign Answer Date Recorded Within the past 12 months, y ou worried that your food would run out before you got the money to buy more. Never true 04/19/19 25 Within the past 12 months, t he food you bought just didn't last and you didn't have money to get more. Never true 04/19/2024 Personal Safety Answer Date Recorded Have you ever been in or are you currently in a harmful physical or emotional relationship or is someone making you feel afraid or unsafe? Denies 06/02/2023 Comments No Sex and Gender Information Value Date Recorded Sex Assigned at Not on file Legal Sex Female 12:12 AM PIECE JOBBER Gender Identity Not on file Sexual Orientation Not on file Obstetrics History Last Filed Vital Signs Vital Sign Reading Time Taken Comments Blood Pressure 118/69 04/19/2024 2:21 PM PIECE JOBBER Pulse 85 04/19/2024 2:21 PM PIECE JOBBER Temperature 36.2 C (97.1 F) 04/19/2024 9:00 AM PIECE JOBBER Respiratory Rate 29 06/02/2023 11:55 AM CDT Oxygen Saturation 97% 04/19/2024 2:21 PM PIECE JOBBER Inhaled Oxygen Concentration - - Weight 71.2 kg (157 lb) 05/03/2024 12:33 PM PIECE JOBBER Height 152.4 cm (5') 05/03/2024 12:33 PM PIECE JOBBER Body Mass Index 30.66 05/03/2024 12:33 PM PIECE JOBBER Plan of Treatment Scheduled Procedures Name Priority Associated Diagnoses Date/Ti me COLONOSCOPY Encounter for screening colonoscopy COLONOSCOPY Encounter for screening colonoscopy COLONOSCOPY Encounter for screening colonoscopy COLONOSCOPY Encounter for screening colonoscopy COLONOSCOPY Encounter for screening colonoscopy Health Maintenance Due Date Last Done Comments Colon Cancer Screening-Colonoscopy 1955 Depression Screening 1955 Dilated Eye Exam 1955 DTaP/Tdap/Td Vaccine (1 - Tdap) 1964 Hepatitis B Screening 12/29/1971 Well Visit 65+ 2018 Breast Cancer Screening-Mammogram 07/05/2021 07/05/2020 Influenza Vaccine (#1) 2023 Fall Risk Assessment 06/01/2024 06/02/2023 Hemoglobin A1C 10/04/2024 04/06/2024, 01/01, 10/13/2023, Additional history exists Lipid Panel 10/12/2024 10/13/2023, 03/03, 09/04/2021, Additional history exists Albumin Creatinine Ratio, Urine 01/14/2025 01/15/2024, 10/13/2023 Osteoporosis Screening-Bone Density Scan 01/14/2025 Postponed from 1955 (Patient declined, but will receive in the future) Pneumococcal vaccine 65+ (1 of 2 - PCV) 01/14/2025 Postponed from 1972 (Patient declined, but will receive in the future) Zoster Vaccine (1 of 2) 01/14/2025 Post poned from 12/29/2003 (Patient declined, but will receive in the future) Foot Exam 02/22/2025 02/23/2024 eGFR 04/06/2025 04/06/2024, 02/01, 01/15/2024, Additional history exists Hepatitis C Screening Completed 01/15/2024 Medical Devices Implanted Type Area Security Program Manager Device Identifier Shelf Expiration Date Model / Serial / Lot [employer] X [id number] Resolute [place] 3.5mm 2.1-2.7fr 26mm 140cm Rapid Exchange - [id number] - [id number] Implanted:Qty : 1 on 02/15/2021 by Tyrel Flores MD at [facility] Stent Left: Coronary Medtronic Inc 10/22/2021 [id number] / [id number] / [id number] Description:LAD [employer] X [id number] Resolute [place] 3.5mm 2.1-2.7fr 26mm 140cm Rapid Exchange - [id number] - [id number] Implanted:Qty : 1 on 02/15/2021 by Tyrel Flores MD at [facility] Stent Left: Coronary Med[employer]onic Inc 08/23/2021 [id number] / [id number] / [id number] Description:LAD [employer] X [id number] Resolute [place] 3mm 2.1-2.7fr 22mm 140cm Rapid Exchange Radiopaque - [id number] - [id number] Implanted:Qty : 1 on 02/15/2021 by Tyrel Flores MD at [facility] Stent Left: Coronary Medtronic Inc 12/08/2023 [id number] / [id number] / [id number] Description:LAD [employer] Angio-Seal Vip 6fr Closere Device [id number] - [id number] - [id number] Implanted:Qty : 1 on 06/02/2023 by Tyrel Flores MD at [facility] Vascular Closure Device [employer] 01/01/2024 [id number] / [id number] / [id number] Procedures Procedure Name Priority Date/Time Associated Diagnosis Comments US VEIN DUPLEX LOWER EXTREMITY BILATERAL COMPLETE Schedule Routine, Read Routine (OP Routine) 05/10/2024 10:08 AM CDT Personal history of PE (pulmonary embolism) PROTEIN ELECTROPHORESIS, WITH REFLEX, SERUM Routine 04/09/2024 11:15 AM PIECE JOBBER Type 2 diabetes mellitus without complication, without long-term current use of insulin (HCC) PULMONARY FUNCTION TEST (PFT) Routine 04/08/2024 12:59 PM PIECE JOBBER Acute pulmonary embolism without acute cor pulmonale, unspecified pulmonary embolism type (HCC) XR CHEST PA LATERAL 2 VIEWS Schedule Routine, Read Routine (OP Routine) 04/08/2024 11:13 AM PIECE JOBBER Acute pulmonary embolism without acute cor pulmonale, unspecified pulmonary embolism type (HCC) EGFR Routine 04/06/2024 1:23 PM PIECE JOBBER Type 2 diabetes mellitus without complication, without long-term current use of insulin (HCC) Essential hypertension COMPREHENSIVE METABOLIC PANEL Routine 04/06/2024 1:23 PM PIECE JOBBER Type 2 diabetes mellitus without complication, without long-term current use of insulin (HCC) Essential hypertension POCT HEMOGLOBIN A1C Routine 04/06/2024 12:54 PM PIECE JOBBER Type 2 diabetes mellitus without complication, without long-term current use of insulin (HCC) US GROIN PSEUDO DUPLEX LEFT Schedule Routine, Read Routine (OP Routine) 03/05/2024 2:56 PM PIECE JOBBER Left inguinal pain Right inguinal pain S/P IVC filter US GROIN PSEUDO DUPLEX RIGHT Schedule Routine, Read Routine (OP Routine) 03/05/2024 2:56 PM PIECE JOBBER Left inguinal pain Right inguinal pain S/P IVC filter EGFR Routine 02/23/2024 10:32 AM PIECE JOBBER Acute renal failure, unspecified acute renal failure type DIFFERENTIAL AUTO Routine 02/23/2024 10:32 AM PIECE JOBBER Acute renal failure, unspecified acute renal failure type Anemia, unspecified type COMPREHENSIVE METABOLIC PANEL Routine 02/23/2024 10:32 AM PIECE JOBBER Acute renal failure, unspecified acute renal failure type CBC WITH AUTO DIFFERENTIAL Routine 02/23/2024 10:32 AM PIECE JOBBER Acute renal failure, unspecified acute renal failure type Anemia, unspecified type MAGNESIUM Routine 02/23/2024 10:32 AM PIECE JOBBER Acute renal failure, unspecified acute renal failure type VITAMIN B12 Routine 02/23/2024 10:32 AM PIECE JOBBER Fatigue, unspecified type HEPATITIS C ANTIBODY Routine 01/15/2024 2:49 PM PIECE JOBBER Type 2 diabetes mellitus without complication, without long-term current use of insulin (HCC) Essential hypertension Coronary artery disease involving [place] coronary artery of [place] heart without angina pectoris Hypothyroidism, unspecified type Mixed hyperlipidemia ALBUMIN CREATININE RATIO, URINE Routine 01/15/2024 2:49 PM PIECE JOBBER Type 2 diabetes mellitus without complication, without long-term current use of insulin (HCC) Essential hypertension Coronary artery disease involving [place] coronary artery of [place] heart without angina pectoris Hypothyroidism, unspecified type Mixed hyperlipidemia POCT LIPID PANEL Routine 10/13/2023 2:49 PM CDT Hyperlipidemia, unspecified hyperlipidemia type SCREENING MAMMOGRAM BILATERAL W KJ Schedule Routine, Read Routine (OP Routine) 07/05/2020 12:56 PM CDT Visit for screening mammogram from Last 3 Months or Most Recently Relevant to Health Maintenance Results * US Vein Duplex Lower Extremity Bilateral Complete (05/10/2024 10:08 AM CDT) Anatomical Region Laterality Modality Vascular Bilateral Ultrasound 05/10/2024 9:48 AM CDT Narrative 05/10/2024 2:19 PM CDT [facility] - Department of Vascular Surgery, Vascular Laboratory [address] [place] [id number] Lower Extremity Venous Ultrasound Report Patient Name: DEBBIE MEIER : 1955 (68y 4m) Study Date: 05/10/2024 9:48:22 AM Gender: F Tech: [place] Location: [facility] Ref Provider: JUMANA PARKER Quality: Adequate Order Provider: JUMANA PARKER PROCEDURES: Vascular Report: Venous Duplex imaging was performed bilaterally in the lower extremities. The common femoral, femoral, popliteal, posterior tibial, peroneal veins were evaluated for patency, spontaneity and phasicity with Doppler, compression and augmentation maneuvers. Great saphenous vein proximal at the junction was evaluated with compression maneuvers. INDICATIONS: Z86.711 Personal history of pulmonary embolism. FINDINGS: Performing Tow Mate: Gabbi Sutton RVT. Bilateral: Venous Doppler signals in the bilateral lower extremity are within normal limits for spontaneity and phasicity and respond normally to augmentation maneuvers. No evidence of deep vein thrombus by duplex, proximal to the calf. CONCLUSIONS: 1. There is no evidence of acute deep vein thrombosis in the lower extremities bilaterally. Noninvasive venous studies cannot rule out isolated calf vein obstruction. HISTORY: Previous DVT/PE. PREVIOUS STUDIES: No previous studies for comparison. DISCLAIMER: The study images and the final report will be retained in the patient chart by the Vascular Laboratory for the legally required time period. This chart constitutes the legal record of any testing performed. ATTESTATION: I have reviewed and interpreted the pertinent images and measurements of this study. I attest to the conclusions in the final report that is provided above. Electronically Signed By: Adan Argueta MD [facility] [phone] 05/10/2024 1:30:59 PM CDT Procedure Note dAan Argueta MD - 05/10/2024 [facility] - Department of Vascular Surgery,Vascular Laboratory [address] [place] [id number] Lower Extremity Venous Ultrasound Report Patient Name: DEBBIE MEIER : 1955 (68y 4m) Study Date: 05/10/2024 9:48:22 AM Gender: F Tech: IA Location: [facility] Ref Provider: JUMANA PARKER Quality: Adequate Order Provider: JUMANA PARKER PROCEDURES: Vascular Report: Venous Duplex imaging was performed bilaterally in the lower extremities.The common femoral, femoral, popliteal, posterior tibial, peroneal veins wereevaluated for patency, spontaneity and phasicity with Doppler, compression and augmentationmaneuvers. Great saphenous vein proximal at the junction was evaluated with compressionmaneuvers. INDICATIONS: Z86.711 Personal history of pulmonary embolism. FINDINGS: Performing Tow Mate: Gabbi Sutton RVT. Bilateral: Venous Doppler signals in the bilateral lower extremity are within normallimits for spontaneity and phasicity and respond normally to augmentation maneuvers.No evidence of deep vein thrombus by duplex, proximal to the calf. CONCLUSIONS: 1. There is no evidence of acute deep vein thrombosis in the lowerextremities bilaterally. Noninvasive venous studies cannot rule out isolated calf veinobstruction. HISTORY: Previous DVT/PE. PREVIOUS STUDIES: No previous studies for comparison. DISCLAIMER: The study images and the final report will be retained in the patientchart by the Vascular Laboratory for the legally required time period. This chartconstitutes the legal record of any testing performed. ATTESTATION: I have reviewed and interpreted the pertinent images and measurements ofthis study. I attest to the conclusions in the final report that is provided above. Electronically Signed By: Adan Argueta MD [facility] [phone] 05/10/2024 1:30:59 PM CDT us Jumana Parker MD IMG US PROCEDURES Final Re sult * (ABNORMAL) Protein electrophoresis with reflex, serum with interpretation (04/09/2024 11:15 AM PIECE JOBBER) Protein, sr 8.9(H) 6.2 - 8.2 g/dL Albumin 4.7 3.2 - 5.0 g/dL [facility] Alpha-1 globulin 0.3 0.2 - 0.4 g/dL [facility] Alpha-2 globulin 1.1(H) 0.5 - 1.0 g/dL [facility] Beta-1 globulin 0.6 0.3 - 0.6 g/dL [facility] Beta-2 globulin 0.5 0.2 - 0.6 g/dL [facility] Gamma globulin 1.7 0.5 - 1.7 g/dL [facility] SPEP interp Please see comment MELANIE MOHAMUD Comment: No apparent monoclonal peak Reviewed and signed by Luis Infante MD 04/12/2024 Blood 04/09/2024 11:1 5 AM PIECE JOBBER 04/09/2024 11:37 AM PIECE JOBBER us Adan Caldera MD LAB BLOOD ORDERABLES Final Re sult [facility] Department [place] [address] * Pulmonary Function Test - (04/08/2024 12:59 PM PIECE JOBBER) FVC PRE 2.19 L [facility] FVC %PRE PRED 94 % [facility] FVC POST 2.37 L [facility] FVC %POST PRED 102 % [facility] FEV1 PRE 1.53 L [facility] FEV1 %PRE PRED 83 % [facility] FEV1 POST 1.63 L [facility] FEV1 %POST PRED 89 % [facility] FEV1/FVC PRE 69.9 % [facility] FEV1/FVC POST 68.9 % [facility] FRC PL PRE 2.72 L [facility] FRC PL %PRE PRED 107 % [facility] RV PRE 2.15 L [facility] RV %PRE PRED 107 % [facility] TLC PRE 4.34 L [facility] TLC %PRE PRED 97 % [facility] DLCO PRE 8.1 ml/min/mmH g [facility] DLCO %PRE PRED 47 % [facility] FIO2 % 21.00 % [facility] PaO2 88.0 mmHg [facility] PaCO2 34.0 mmHg [facility] pH 7.45 [facility] A-aDO2 POC 19.0 mmHg [facility] METHGB % 0.6 % [facility] COHb POC 1.8 % [facility] HCO3 23.6 mEq/L [facility] Anatomical Region Laterality Modality PFT 04/08/2024 12:0 3 PM PIECE JOBBER Narrative 04/09/2024 6:42 PM PIECE JOBBER Table formatting from the original result was not included. [facility] Division of Pulmonary & Critical Care Medicine [address] [place] [address]; [place] [address]; [place] [address]; [phone] Pulmonary Function Laboratory Pulmonary Stress Test Simple/Oxygen Assessment Patient: Debbie Meier Date: 04/08/2024 : 1955 Ht: 60 IN Wt: 158 LBS Time (min) Distance (ft)/ Kumar O2 L/M SpO2 HR Cristino* BP FEV1 % Pred Rest: RA 95 83 0 108/61 1.53 83 % Walk/Bike: 1 RA 100 88 0 2 RA 95 91 0 3 RA 95 92 0.5 4 RA 96 96 0.5 5 RA 95 102 0.5 6 min 0 sec RA 96 96 0.5 Recovery: 1 RA 97 95 0.5 145/77 1.57 85% 3 RA 98 85 0 *Cristino rate of perceived exertion (1-10 dyspnea scale) Garrett, CHEST 2003; [id number] Walk Test Summary: Six Minute Walk Distance: 850 ft Six-minute Walk Work [distance (m) x body wt (kg)]: 11239 kg.m (normal >60,000kg.m) Oxygen required to maintain SpO2 greater than 90% during six minutes of walkin L/M Comments: Interpretation: Breathing room air, SpO2 is normal at rest and during exercise sufficient to increase pulse, SpO2 is stable. On this basis, SpO2 is adequate at rest breathing room air and while walking breathing room air. This level of exercise is associated with no significant change of FEV1. By signing this report, the attending pulmonary physician certifies that he/she has personally reviewed and interpreted the graphic and numerical data associated with this pulmonary function study and has reviewed and /or edited a preliminary draft report and agrees with the written final report. PFT performed at:->[facility] Adult PFT Lab- [facility] Procedure:->Spirometry Procedure:->Spirometry with Bronchodilator Procedure:->Oxygen Assessment Titration Procedure:->DLCO Procedure:->Lung Volumes Procedure:->ABG with Co-oximetry Lung Volumes via:->Pleth with Airway Resistance DLCO:->Spirometry Air Type:->Room Air Pulmonary Function Test Interpretation SPIROMETRY: There is a decrease in expiratory airflow at middle lung volumes. The FEV1 and FVC are normal. There is no significant improvement after inhaling a single dose of albuterol. The inspiratory loop is normal. LUNG VOLUMES: TLC measured by plethysmography is normal. The cause of the decreased ERV is uncertain. DLCO: The diffusing capacity corrected for hemoglobin level (DLCO ADJ) is decreased. A decreased diffusing capacity may be due to loss of pulmonary capillary surface area. Causes include pulmonary fibrosis (altered V/Q relationship), pulmonary vascular disease, emphysema, or interstitial pneumonitis. ARTERIAL BLOOD GAS: There is an uncompensated respiratory alkalosis. The arterial pO2 is normal at rest. The COHb level is 1.8%. Normal is less than 2%. Measured hemoglobin is 12.8 g/dL. PULSE OXIMETRY: See Oxygen Assessment/Cardiopulmonary Exercise Study-Simple Impression: There is no significant ventilatory defect. There is a moderate impairment of alveolar gas exchange by DLCO. There is no impairment of gas exchange at rest by ABG. There is mild hyperventilation. The COHb level is consistent with current non-smoking status. The attending pulmonary physician certifies a physician presence in the [facility] during the administration of aerosolized bronchodilator. The attending pulmonary physician certifies that he/she has reviewed and interpreted the graphic and numerical data of this pulmonary function study and agrees with the written final report. The lower limit of normal for PaO2 and %HbO2 is age dependent. However, the [facility] Pulmonary Function Laboratory defines hypoxemia as a PaO2 <56 mm Hg or a %HbO2 <89%. Starting on March of 2024 the [facility] Pulmonary Function Laboratory utilizes race neutral GLI Global normative equations. Fani Huff MD PFT ORDERABLES Final R esult * XR Chest Pa Lateral 2 Views (04/08/2024 11:13 AM PIECE JOBBER) Anatomical Region Laterality Modality Body, Chest N/A Computed Radiogr aphy 04/08/2024 11:1 9 AM PIECE JOBBER Impressions 04/08/2024 11:19 AM PIECE JOBBER Comparison is made to prior chest radiograph 12/13/2020. Heart size is normal. Lungs are clear. Surgical clips noted within the upper abdomen. There is an inferior vena cava filter. Electronically signed by: Jonas Hernadez M.D. Narrative 04/08/2024 11:19 AM PIECE JOBBER EXAMINATION: 2 view chest radiograph Procedure Note Jonas Hernadez MD - 04/08/2024 EXAMINATION: 2 view chest radiograph IMPRESSION: Comparison is made to prior chest radiograph 12/13/2020. Heart size is normal. Lungs are clear. Surgical clips noted within the upper abdomen. There is an inferior vena cava filter. Electronically signed by: Jonas Hernadez M.D. Fani Huff MD IMG XR PROCEDURES Final Result * eGFR (04/06/2024 1:23 PM PIECE JOBBER) Pathologist [facility] eGFR 82 >=60 mL/min/1. 73 m2 Comment: Interpretive Data Reference Interval Normal >/= 90 mL/min/1.73m2 Mildly decreased* 60 - 89 mL/min/1.73m2 Mildly to moderately decreased 45 - 59 mL/min/1.73m2 Moderately to severely decreased 30 - 44 mL/min/1.73m2 Severely decreased 15 - 29 mL/min/1.73m2 Kidney Failure < 15 mL/min/1.73m2 *Relative to young adult level Estimated glomerular filtration rate is determined by the 2020 CKD-EPI equation recommended by the National Kidney Foundation (A Unifying Approach to GFR Estimation: Recommendations of the NKF-ASK Task Force on Reassessing the Inclusion of Race in Diagnosing Kidney Disease, JASN 2020). The CKD-EPI equation should not be used for patients with unstable renal function and has not been validated in children and those over 70. Current interpretive data was last reviewed 2021. Blood 04/06/2024 1:23 PM PIECE JOBBER 04/06/2024 1:51 PM PIECE JOBBER us Adan Caldera MD LAB BLOOD ORDERABLES Final Re sult [facility] Department [place] [address] * (ABNORMAL) Comprehensive metabolic panel (04/06/2024 1:23 PM PIECE JOBBER) Pathologist [facility] Sodium 139 135 - 145 mmol/L Potassium, pl 4.1 3.3 - 4.9 mmol/L [facility] Chloride 98 97 - 110 mmol/L [facility] CO2 25 22 - 32 mmol/L [facility] Anion gap 16(H) 2 - 15 mmol/L [facility] BUN 28(H) 6 - 25 mg/dL [facility] Creatinine 0.78 0.60 - 1.10 mg/dL [facility] Glucose 260(H) 70 - 199 mg/dL [facility] Comment: Interpretive Data Fasting glucose >/= 126 mg/dl is diagnostic for diabetes. Fasting is defined as no caloric intake for at least 8 hours. Fasting glucose between 100 mg/dl to 125 mg/dl is diagnostic of prediabetes. In a patient with classic symptoms of hyperglycemia or hyperglycemic crisis, a random glucose >/= 200 mg/dl is diagnostic for diabetes. In the absence of unequivocal hyperglycemia, results should be confirmed by repeat testing. The classification and Diagnosis of Diabetes Diabetes Care 2021; 46: S19-S40. Current interpretive data was last revised 2022. Calcium 9.5 8.5 - 10.3 mg/dL [facility] Bilirubin, total 0.6 0.1 - 1.2 mg/dL [facility] Protein, pl 8.6(H) 6.5 - 8.5 g/dL [facility] Albumin 4.5 3.5 - 5.0 g/dL [facility] Alk phos 104 40 - 130 Units/L [facility] ALT 20 7 - 45 Units/L [facility] AST 25 10 - 45 Units/L [facility] Blood 04/06/2024 1:23 PM PIECE JOBBER 04/06/2024 1:43 PM PIECE JOBBER us Adan Caldera MD LAB BLOOD ORDERABLES Final Re sult [facility] Department [place] [address] * (ABNORMAL) POCT hemoglobin A1c (04/06/2024 12:54 PM PIECE JOBBER) Pathologist [facility] Hemoglobin A1C, POC 6.9 4.0 - 5.6 % Capillary blood 04/06/2024 1 2:54 PM PIECE JOBBER us Adan Caldera MD POINT OF CARE TEST ORDERABLES Final Result * US Groin Pseudo Right (03/05/2024 2:56 PM PIECE JOBBER) Anatomical Region Laterality Modality Vascular Right Ultrasound 03/05/2024 3:43 PM PIECE JOBBER Impressions 03/05/2024 3:43 PM PIECE JOBBER 1. No pseudoaneurysm or arteriovenous fistula in the right or left groin. 2. There is a left groin hematoma. Electronically signed by: Vickie Kramer M.D. Narrative 03/05/2024 3:43 PM PIECE JOBBER EXAMINATION: LIMITED right and left GROIN SONOGRAM AND DOPPLER HISTORY: 68-year-old woman who underwent placement of an IVC filter 02/02/2024 at an outside institution. Pain in both groins. Check for bilateral pseudoaneurysms. COMPARISON: None FINDINGS: SONOGRAM: Right groin: There is no hemorrhage or fluid collection in the groin. DOPPLER: Color Doppler and spectral analysis were used to evaluate the groin vessels. The distal external iliac and proximal femoral artery and vein show normal waveforms. No extravascular blood flow is identified. Specifically, there is no blood flow in the fluid collection described above. There is no tissue vibration. There is no Doppler or najera-scale evidence of a pseudoaneurysm or arteriovenous fistula. Left groin: There is a hematoma in the groin measuring 1.7 x 3.3 x 4.3 cm. There is no color Doppler flow within the hematoma. DOPPLER: Color Doppler and spectral analysis were used to evaluate the groin vessels. The distal external iliac and proximal femoral artery and vein show normal waveforms. No extravascular blood flow is identified. Specifically, there is no blood flow in the fluid collection described above. There is no tissue vibration. There is no Doppler or najera-scale evidence of a pseudoaneurysm or arteriovenous fistula. Procedure Note Vickie Kramer MD - 03/05/2024 EXAMINATION: LIMITED right and left GROIN SONOGRAM AND DOPPLER HISTORY: 68-year-old woman who underwent placement of an IVC filter 02/02/2024 at an outside institution. Pain in both groins. Check for bilateral pseudoaneurysms. COMPARISON: None FINDINGS: SONOGRAM: Right groin: There is no hemorrhage or fluid collection in the groin. DOPPLER: Color Doppler and spectral analysis were used to evaluate the groin vessels. The distal external iliac and proximal femoral artery and vein show normal waveforms. No extravascular blood flow is identified. Specifically, there is no blood flow in the fluid collection described above. There is no tissue vibration. There is no Doppler or najera-scale evidence of a pseudoaneurysm or arteriovenous fistula. Left groin: There is a hematoma in the groin measuring 1.7 x 3.3 x 4.3 cm. There is no color Doppler flow within the hematoma. DOPPLER: Color Doppler and spectral analysis were used to evaluate the groin vessels. The distal external iliac and proximal femoral artery and vein show normal waveforms. No extravascular blood flow is identified. Specifically, there is no blood flow in the fluid collection described above. There is no tissue vibration. There is no Doppler or najera-scale evidence of a pseudoaneurysm or arteriovenous fistula. IMPRESSION: 1. No pseudoaneurysm or arteriovenous fistula in the right or left groin. 2. There is a left groin hematoma. Electronically signed by: Vickie Kramer M.D. us Saira Mcguire NP IMG US PROCEDURES Final Resul t * US Groin Pseudo Duplex Left (03/05/2024 2:56 PM PIECE JOBBER) Anatomical Region Laterality Modality Vascular Left Ultrasound 03/05/2024 3:43 PM PIECE JOBBER Impressions 03/05/2024 3:43 PM PIECE JOBBER 1. No pseudoaneurysm or arteriovenous fistula in the right or left groin. 2. There is a left groin hematoma. Electronically signed by: Vickie Kramer M.D. Narrative 03/05/2024 3:43 PM PIECE JOBBER EXAMINATION: LIMITED right and left GROIN SONOGRAM AND DOPPLER HISTORY: 68-year-old woman who underwent placement of an IVC filter 02/02/2024 at an outside institution. Pain in both groins. Check for bilateral pseudoaneurysms. COMPARISON: None FINDINGS: SONOGRAM: Right groin: There is no hemorrhage or fluid collection in the groin. DOPPLER: Color Doppler and spectral analysis were used to evaluate the groin vessels. The distal external iliac and proximal femoral artery and vein show normal waveforms. No extravascular blood flow is identified. Specifically, there is no blood flow in the fluid collection described above. There is no tissue vibration. There is no Doppler or najera-scale evidence of a pseudoaneurysm or arteriovenous fistula. Left groin: There is a hematoma in the groin measuring 1.7 x 3.3 x 4.3 cm. There is no color Doppler flow within the hematoma. DOPPLER: Color Doppler and spectral analysis were used to evaluate the groin vessels. The distal external iliac and proximal femoral artery and vein show normal waveforms. No extravascular blood flow is identified. Specifically, there is no blood flow in the fluid collection described above. There is no tissue vibration. There is no Doppler or najera-scale evidence of a pseudoaneurysm or arteriovenous fistula. Procedure Note Vickie Kramer MD - 03/05/2024 EXAMINATION: LIMITED right and left GROIN SONOGRAM AND DOPPLER HISTORY: 68-year-old woman who underwent placement of an IVC filter 02/02/2024 at an outside institution. Pain in both groins. Check for bilateral pseudoaneurysms. COMPARISON: None FINDINGS: SONOGRAM: Right groin: There is no hemorrhage or fluid collection in the groin. DOPPLER: Color Doppler and spectral analysis were used to evaluate the groin vessels. The distal external iliac and proximal femoral artery and vein show normal waveforms. No extravascular blood flow is identified. Specifically, there is no blood flow in the fluid collection described above. There is no tissue vibration. There is no Doppler or najera-scale evidence of a pseudoaneurysm or arteriovenous fistula. Left groin: There is a hematoma in the groin measuring 1.7 x 3.3 x 4.3 cm. There is no color Doppler flow within the hematoma. DOPPLER: Color Doppler and spectral analysis were used to evaluate the groin vessels. The distal external iliac and proximal femoral artery and vein show normal waveforms. No extravascular blood flow is identified. Specifically, there is no blood flow in the fluid collection described above. There is no tissue vibration. There is no Doppler or najera-scale evidence of a pseudoaneurysm or arteriovenous fistula. IMPRESSION: 1. No pseudoaneurysm or arteriovenous fistula in the right or left groin. 2. There is a left groin hematoma. Electronically signed by: Vickie Kramer M.D. us Saira Mcguire NP IMG US PROCEDURES Final Resul t * eGFR (02/23/2024 10:32 AM PIECE JOBBER) eGFR >90 >=60 mL/min/1. 73 m2 Comment: Interpretive Data Reference Interval Normal >/= 90 mL/min/1.73m2 Mildly decreased* 60 - 89 mL/min/1.73m2 Mildly to moderately decreased 45 - 59 mL/min/1.73m2 Moderately to severely decreased 30 - 44 mL/min/1.73m2 Severely decreased 15 - 29 mL/min/1.73m2 Kidney Failure < 15 mL/min/1.73m2 *Relative to young adult level Estimated glomerular filtration rate is determined by the 2020 CKD-EPI equation recommended by the National Kidney Foundation (A Unifying Approach to GFR Estimation: Recommendations of the NKF-ASK Task Force on Reassessing the Inclusion of Race in Diagnosing Kidney Disease, JASN 2020). The CKD-EPI equation should not be used for patients with unstable renal function and has not been validated in children and those over 70. Current interpretive data was last reviewed 2021. Blood 02/23/2024 10:3 2 AM PIECE JOBBER 02/23/2024 10:52 AM PIECE JOBBER us Saira Mcguire WIRE LOOP MACHINE OPERATOR LAB BLOOD ORDERABLES Final Re sult [facility] Department [place] [address] * (ABNORMAL) Differential, auto (02/23/2024 10:32 AM PIECE JOBBER) Pathologist [facility] Neutrophil abs 6.4 1.5 - 6.5 K/cumm Imm gran abs 0.2(H) 0.0 - 0.1 K/cumm [facility] Lymphocyte abs 2.7 0.8 - 3.3 K/cumm [facility] Monocyte abs 0.7 0.2 - 0.8 K/cumm [facility] Eosinophil abs 0.3 0.0 - 0.5 K/cumm [facility] Basophil abs 0.1 0.0 - 0.1 K/cumm [facility] Neutrophil pct 61.6 % [facility] Comment: Interpretive Data Percent cell count reference ranges are not reported, since discordance with absolute values may lead to misinterpretation of CBC data. Current Interpretive Data was last revised on 2017. Imm gran pct 1.5 % [facility] Comment: Interpretive Data Percent cell count reference ranges are not reported, since discordance with absolute values may lead to misinterpretation of CBC data. Current Interpretive Data was last revised on 2017. Lymphocyte pct 26.2 % [facility] Comment: Interpretive Data Percent cell count reference ranges are not reported, since discordance with absolute values may lead to misinterpretation of CBC data. Current Interpretive Data was last revised on 2017. Monocyte pct 6.5 % [facility] Comment: Interpretive Data Percent cell count reference ranges are not reported, since discordance with absolute values may lead to misinterpretation of CBC data. Current Interpretive Data was last revised on 2017. Eosinophil pct 3.2 % [facility] Comment: Interpretive Data Percent cell count reference ranges are not reported, since discordance with absolute values may lead to misinterpretation of CBC data. Current Interpretive Data was last revised on 2017. Basophil pct 1.0 % [facility] Comment: Interpretive Data Percent cell count reference ranges are not reported, since discordance with absolute values may lead to misinterpretation of CBC data. Current Interpretive Data was last revised on 2017. Blood 02/23/2024 10:3 2 AM PIECE JOBBER 02/23/2024 10:47 AM PIECE JOBBER us Saira Mcguire WIRE LOOP MACHINE OPERATOR LAB BLOOD ORDERABLES Final Re sult [facility] Department [place] [address] * (ABNORMAL) CBC with auto differential (02/23/2024 10:32 AM PIECE JOBBER) WBC 10.4(H) 3.8 - 9.9 K/cumm Hgb 11.0(L) 11.9 - 15.5 g/dL [facility] Hct 35.5(L) 35.6 - 45.5 % [facility] Plt 294 150 - 400 K/cumm [facility] MPV 10.1 9.1 - 12.3 fL [facility] RBC 3.77(L) 3.90 - 5.20 M/cumm [facility] MCV 94.2 81.3 - 96.4 fL [facility] MCH 29.2 27.1 - 33.3 pg [facility] MCHC 31.0(L) 32.3 - 35.7 g/dL [facility] RDW CV 14.6 11.1 - 14.9 % [facility] RDW SD 50.6(H) 35.7 - 48.1 fL [facility] NRBC abs 0.00 0.00 - 0.01 K/cumm [facility] Blood 02/23/2024 10:3 2 AM PIECE JOBBER 02/23/2024 10:47 AM PIECE JOBBER us Saira Mcguire WIRE LOOP MACHINE OPERATOR LAB BLOOD ORDERABLES Final Re sult Performing Organization Address [facility] Co de Phone Number [facility] Department [place] [address] * Magnesium (02/23/2024 10:32 AM PIECE JOBBER) Magnesium 1.5 1.4 - 2.5 mg/dL Blood 02/23/2024 10:3 2 AM PIECE JOBBER 02/23/2024 10:47 AM PIECE JOBBER us Saira Mcguire WIRE LOOP MACHINE OPERATOR LAB BLOOD ORDERABLES Final Re sult Performing Organization Address [facility] Co de Phone Number [facility] [place] [address] * Vitamin B12 (02/23/2024 10:32 AM PIECE JOBBER) Vitamin B12 706 230 - 1,250 pg/mL Blood 02/23/2024 10:3 2 AM PIECE JOBBER 02/23/2024 10:47 AM PIECE JOBBER Saira Mcguire WIRE LOOP MACHINE OPERATOR LAB BLOOD ORDERABLES Final Re sult Performing Organization Address [facility]/ZIP Co de Phone Number [facility] Department [place] [address] * (ABNORMAL) Comprehensive metabolic panel (02/23/2024 10:32 AM PIECE JOBBER) Sodium 141 135 - 145 mmol/L Potassium, pl 3.6 3.3 - 4.9 mmol/L [facility] Chloride 102 97 - 110 mmol/L [facility] CO2 27 22 - 32 mmol/L [facility] Anion gap 12 2 - 15 mmol/L [facility] BUN 10 6 - 25 mg/dL [facility] Creatinine 0.58(L) 0.60 - 1.10 mg/dL [facility] Glucose 119 70 - 199 mg/dL [facility] Comment: Interpretive Data Fasting glucose >/= 126 mg/dl is diagnostic for diabetes. Fasting is defined as no caloric intake for at least 8 hours. Fasting glucose between 100 mg/dl to 125 mg/dl is diagnostic of prediabetes. In a patient with classic symptoms of hyperglycemia or hyperglycemic crisis, a random glucose >/= 200 mg/dl is diagnostic for diabetes. In the absence of unequivocal hyperglycemia, results should be confirmed by repeat testing. The classification and Diagnosis of Diabetes Diabetes Care 202; 46: S19-S40. Current interpretive data was last revised 2022. Calcium 9.4 8.5 - 10.3 mg/dL [facility] Bilirubin, total 0.5 0.1 - 1.2 mg/dL [facility] Protein, pl 8.4 6.5 - 8.5 g/dL [facility] Albumin 3.8 3.5 - 5.0 g/dL [facility] Alk phos 112 40 - 130 Units/L [facility] ALT 24 7 - 45 Units/L [facility] AST 33 10 - 45 Units/L [facility] Blood 02/23/2024 10:3 2 AM PIECE JOBBER 02/23/2024 10:47 AM PIECE JOBBER Saira Mcguire 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 Does NOT exclude the possibility of recent exposure to HCV. Current interpretive data was last revised on 21 Blood 01/15/2024 2:49 PM PIECE JOBBER 01/15/2024 3:18 PM PIECE JOBBER Adan Caldera MD LAB MICROBIOLOGY - GENERAL OR DERABLES Final Result Performing Organization Address [facility] [place] [address] * (ABNORMAL) Albumin Creatinine Ratio, Urine (01/15/2024 2:49 PM PIECE JOBBER) [facility] Albumin Ur 13.4 mg/L Comment: Interpretive Data No reference range established. Current interpretive data was last revised 2018. Creatinine Ur 42.5 mg/dL [facility] Comment: Interpretive Data No reference range established. Current interpretive data was last revised 2018. Albumin Creatinine Ratio, Ur 32(H) 1 - 29 mg/g [facility] Urine 01/15/2024 2:49 PM PIECE JOBBER 01/15/2024 3:34 PM PIECE JOBBER us Adan Caldera MD LAB URINE ORDERABLES Final Re sult Performing Organization Address City/[facility]/ZIP Co de Phone Number [facility] [place] [address] * POCT lipid panel (10/13/2023 2:49 PM CDT) [facility] Cholesterol, POC 137 mg/dL HDL, POC 46 mg/dL Triglycerides, POC 218 mg/dL LDL Cholesterol POC 48 mg/dL Chol/HDL Ratio, POC 3.0 Non-HDL Cholesterol, POC 91 mg/dL Cholesterol Total, POC 137 mg/dL Capillary blood 10/13/2023 2 :49 PM CDT us dAan Caldera MD POINT OF CARE TEST ORDERABLES Final Result * Screening Mammogram Bilateral W Kj (07/05/2020 12:56 PM CDT) Anatomical Region Laterality Modality Breast Bilateral Mammography Narrative 07/06/2020 12:52 PM CDT Mammogram Technique: Bilateral Digital Breast Tomosynthesis, Bilateral C-view 2D Screening mammogram. Views obtained: bilateral craniocaudal and bilateral mediolateral oblique. Computer Aided Detection was performed. Mammogram Findings: No prior imaging studies are available for comparison. The breasts are almost entirely fatty. There is no suspicious abnormality in either breast. Impression: There is no mammographic evidence of malignancy. Annual screening mammography is recommended. OVERALL FINAL ASSESSMENT: BI-RADS CATEGORY 1: Negative. Procedure Note Marcella Pérez MD - 07/06/2020 Mammogram Technique: Bilateral Digital Breast Tomosynthesis, Bilateral C-view 2D Screening mammogram. Views obtained: bilateral craniocaudal and bilateral mediolateral oblique. Computer Aided Detection was performed. Mammogram Findings: No prior imaging studies are available for comparison. The breasts are almost entirely fatty. There is no suspicious abnormality in either breast. Impression: There is no mammographic evidence of malignancy. Annual screening mammography is recommended. OVERALL FINAL ASSESSMENT: BI-RADS CATEGORY 1: Negative. 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
--- OUTSIDE RECORDS SUMMARY | 2024-05-11 12:50 | XMS_ITS | Referral Summary ---
Author Organization [facility] al Address [address] [place] [address] Care Team Providers Care Psychiatric Aide Name Role Phone Adan Caldera MD Primary Care Provider [phone] Encounters Date Type Department Care Team Description 05/10/2024 11:00 AM CDT Ancillary Procedure [facility] at the [facility] Advanced Medicine [facility] 8th [place] [address] [place] [phone] Personal history of PE (pulmonary embolism) 05/05/2024 Telephone [facility] [address] [place] [address] 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 RN 05/04/2024 Orders Only [facility] 1 [place] [address] 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, 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, unspecified pulmonary embolism type (HCC) (Primary Dx) 05/03/2024 1:00 PM HEALTHCARE CORPORATE ACCOUNT DIRECTOR Office Visit [facility], Interventional Radiology [address] [facility] [address] [place] [phone] Jumana Parker MD S/P insertion of IVC (inferior vena caval) filter (Primary Dx); Other chronic pulmonary embolism without acute cor pulmonale (HCC) 04/19/2024 Telephone [facility] 1 [place] [address] 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 RN 04/19/2024 10:00 AM HEALTHCARE CORPORATE ACCOUNT DIRECTOR [facility] [address] [facility] [address] [place] [address] Hematoma of groin, subsequent encounter 04/19/2024 2:30 PM HEALTHCARE CORPORATE ACCOUNT DIRECTOR Office Visit [facility] [address] [facility] 8th [place] [address] [place] [address] Andrés Black NP Coronary artery disease involving rampart coronary artery of rampart heart without angina pectoris (Primary Dx); Mixed hyperlipidemia; Essential hypertension; Elevated left ventricular end-diastolic pressure (LVEDP) 04/16/2024 [facility]phone [facility] [address] [facility] [address] [place] [address] Idania Han RN APPT CONFIRMATION 04/13/2024 [facility] [address] [facility] [address] [place] [address] [place] 04/09/2024 11:55 AM HEALTHCARE CORPORATE ACCOUNT DIRECTOR Lab [facility] ([facility]) [address] [place] [address] Type 2 diabetes mellitus without complication, without long-term current use of insulin (HCC) 04/08/2024 11:03 AM HEALTHCARE CORPORATE ACCOUNT DIRECTOR - 04/08/2024 11:59 PM HEALTHCARE CORPORATE ACCOUNT DIRECTOR Hospital Encounter [facility] [address] [place] [address] Acute pulmonary embolism without acute cor pulmonale, unspecified pulmonary embolism type (HCC) Discharge Disposition: Discharge to home or self care 04/08/2024 11:47 AM HEALTHCARE CORPORATE ACCOUNT DIRECTOR - 04/08/2024 11:59 PM HEALTHCARE CORPORATE ACCOUNT DIRECTOR Hospital Encounter [facility] [address] [facility] Medical Office Building 2 [address] [place] [phone] Acute pulmonary embolism without acute cor pulmonale, unspecified pulmonary embolism type (HCC) Discharge Disposition: Discharge to home or self care 04/08/2024 3:00 PM HEALTHCARE CORPORATE ACCOUNT DIRECTOR Office Visit [facility] [address] [facility] Medical Office Building 2 [address] [place] [phone] Fnai Huff MD Acute pulmonary embolism without acute cor pulmonale, non occlusive 01/18/24 (HCC) (Primary Dx); GONGORA (dyspnea on exertion); S/P insertion of IVC (inferior vena caval) filter; Former tobacco use; Pulmonary emphysema, unspecified emphysema type (HCC); Personal history of PE (pulmonary embolism) 04/07/2024 Telephone [facility] [address] [place], [place] [address] [place] [address] [place] 04/07/2024 Orders Only [facility] [address] [place] [phone] [place], [place] Type 2 diabetes mellitus without complication, without long-term current use of insulin (HCC) (Primary Dx) 04/06/2024 2:35 PM HEALTHCARE CORPORATE ACCOUNT DIRECTOR Lab [facility] ([facility]) [address] [place] [phone] Type 2 diabetes mellitus without complication, without long-term current use of insulin (HCC); Essential hypertension 04/06/2024 12:30 PM HEALTHCARE CORPORATE ACCOUNT DIRECTOR Office Visit [facility] [address] [place] [phone] Adan Caldera MD Type 2 diabetes mellitus without complication, without long-term current use of insulin (HCC) (Primary Dx); Mixed hyperlipidemia; Hypothyroidism, unspecified type; Essential hypertension; Other acute pulmonary embolism without acute cor pulmonale (HCC) 03/23/2024 Orders Only [facility] Scheduling [address] [place] [address] Fani Huff MD Acute pulmonary embolism without acute cor pulmonale, unspecified pulmonary embolism type (HCC) (Primary Dx) 03/12/2024 Orders Only [facility] [address] [place] [address] 8th [place] [address] [place] [address] Fani Huff MD Acute pulmonary embolism without acute cor pulmonale, unspecified pulmonary embolism type (HCC) (Primary Dx) 03/08/2024 Telephone [facility] [address] [facility] [address] [place] [address] Saira Mcguire NP 03/05/2024 2:21 PM HEALTHCARE CORPORATE ACCOUNT DIRECTOR - 03/05/2024 11:59 PM HEALTHCARE CORPORATE ACCOUNT DIRECTOR Hospital Encounter [facility] ([facility] [address] [place] [address] Left inguinal pain; Right inguinal pain; S/P IVC filter Discharge Disposition: Discharge to home or self care 03/01/2024 Telephone [facility] [address] [place] [address] [address] [place] [address] Herman Hood MD UTI 02/23/2024 [facility] [address] [place] [address] [address] [place] [address] Saira Mcguire NP 02/23/2024 Telephone [facility] [address] [place] [address] Advanced Medicine 8th [place] [address] [place] [address] Amber Roque MD 02/23/2024 [facility] [address] [place] [address] [address] [place] [address] Adan Caldera MD 02/23/2024 Telephone [facility] [address] [place] [address] Medical Office Building 3 [address] [place] [address] Jessica Aguilera CMA Podiatry Referral 02/23/2024 10:30 AM HEALTHCARE CORPORATE ACCOUNT DIRECTOR Lab [facility] ([facility]) [address] [place] [phone] Fatigue, unspecified type; Acute renal failure, unspecified acute renal failure type; Anemia, unspecified type 02/23/2024 9:00 AM HEALTHCARE CORPORATE ACCOUNT DIRECTOR Office Visit [facility] [address] [facility] [address] [place] [address] Saira Mcguire NP Acute pulmonary embolism without acute cor pulmonale, unspecified pulmonary embolism type ([facility]) (Primary Dx); DVT (deep venous thrombosis) ([facility]); Acute renal failure, unspecified acute renal failure type; Type 2 diabetes mellitus without complication, without long-term current use of insulin ([facility]); Foot pain, bilateral; Anemia, unspecified type; Fatigue, unspecified type; Left inguinal pain; Right inguinal pain; S/P IVC filter; Acute respiratory failure, unspecified whether with hypoxia or hypercapnia ([facility]) 02/19/2024 [facility] [address] [place], [place] [address] [place] [address] Adan Caldera MD 02/13/2024 [facility] [address] [place] [phone] Adan Caldera MD from Last 3 Months Allergies Active Allergy Reactions Criticality Noted Date Comments Naproxen Rash High 04/21/2009 Sulfa (Sulfonamide Antibiotics) Hives High 04/03 Medications OneTouch Delica Plus Lancet 30 gauge misc USE TO TEST BLOOD SUGAR TWICE DAILY 100 each 1 05/02/19 22 Active OneTouch Verio test strips stripIndicatio ns:Type 2 diabetes mellitus without complication, without long-term current use of insulin ([facility]) USE TO TEST BLOOD SUGAR TWICE DAILY [...] 04/06/2024 Assessment & Plan (04/11/2024 1:34 PM HEALTHCARE CORPORATE ACCOUNT DIRECTOR): MRSA pna in Jan 2024. Resolved. Other pulmonary embolism without acute cor pulmo nale 04/06/2024 Assessment & Plan (04/11/2024 1:33 PM HEALTHCARE CORPORATE ACCOUNT DIRECTOR): No indication to resume anticoagulation at this time. Pt did not complete 3 month treatment given GI bleeding. Assessment & Plan (04/06/2024 1:09 PM HEALTHCARE CORPORATE ACCOUNT DIRECTOR): Status post filter. Doing well. Elevated left ventricular end-diastolic pressure (LVEDP) 08/21/2023 Assessment & Plan (04/19/2024 4:15 PM HEALTHCARE CORPORATE ACCOUNT DIRECTOR): LHC from 06/02/23 with elevated LVEDP and [...] consider MRA. Coronary artery disease invo lving rampart coronary artery of rampart heart without angina pectoris 05/22/2023 Assessment & Plan (04/19/2024 4:15 PM HEALTHCARE CORPORATE ACCOUNT DIRECTOR): CAD s/p PCI of LAD with HI [...] with Dr. Roque regarding stress test vs C. ED precautions given to patient. Educated on smoking cessation. Essential hypertension 05/22/2023 Assessment & Plan (04/19/2024 4:15 PM HEALTHCARE CORPORATE ACCOUNT DIRECTOR): Well controlled. Continue amlodipine. Assessment & Plan (04/06/2024 1:10 PM HEALTHCARE CORPORATE ACCOUNT DIRECTOR): BP at target Assessment & Plan (11/24/2023 [...] well Assessment & Plan (04/06/2024 1:10 PM HEALTHCARE CORPORATE ACCOUNT DIRECTOR): Stable. Assessment & Plan (10/13/2023 3:24 PM [...] urinalysis Assessment & Plan (04/19/2024 4:14 PM HEALTHCARE CORPORATE ACCOUNT DIRECTOR): LDL at goal from labs on 10/13/2023. Continue Atorvastatin 40 mg daily. Assessment & Plan (04/06/2024 1:10 PM HEALTHCARE CORPORATE ACCOUNT DIRECTOR): Stable. Assessment & Plan (11/24/2023 11:38 AM [...] labs Assessment & Plan (04/06/2024 1:10 PM HEALTHCARE CORPORATE ACCOUNT DIRECTOR): Continue medication. Assessment & Plan (10/13/2023 3:21 PM CDT): Check TSH Assessment & Plan (12/13/2020 9:41 AM CDT): Labs due today Tobacco dependence syndrome 04/21/2009 Social History Tobacco Use Types Packs/Day Years [...] on file Legal Sex Female 12:12 AM HEALTHCARE CORPORATE ACCOUNT DIRECTOR Gender Identity Not on file Sexual Orientation Not on file Last Filed Vital Signs Vital Sign Reading Time Taken Comments Blood Pressure 118/69 04/19/2024 2:21 PM HEALTHCARE CORPORATE ACCOUNT DIRECTOR Pulse 85 04/19/2024 2:21 PM HEALTHCARE CORPORATE ACCOUNT DIRECTOR Temperature 36.2 C (97.1 F) 04/19/2024 9:00 AM HEALTHCARE CORPORATE ACCOUNT DIRECTOR Respiratory Rate 29 06/02/2023 11:55 AM CDT Oxygen Saturation 97% 04/19/2024 2:21 PM HEALTHCARE CORPORATE ACCOUNT DIRECTOR Inhaled Oxygen Concentration - - Weight 71.2 kg (157 lb) 05/03/2024 12:33 PM HEALTHCARE CORPORATE ACCOUNT DIRECTOR Height 152.4 cm (5') 05/03/2024 12:33 PM HEALTHCARE CORPORATE ACCOUNT DIRECTOR Body Mass Index 30.66 05/03/2024 12:33 PM HEALTHCARE CORPORATE ACCOUNT DIRECTOR Plan of Treatment Scheduled Procedures Name Priority Associated Diagnoses Date/Ti me COLONOSCOPY Encounter for screening colonoscopy COLONOSCOPY Encounter for screening colonoscopy COLONOSCOPY Encounter for screening colonoscopy COLONOSCOPY Encounter for screening colonoscopy COLONOSCOPY Encounter for screening colonoscopy Medical Devices Implanted Type Area Motor And Generator Assembler Device Identifier Shelf Expiration Date Model / Serial / Lot Medtronic [employer] X [id number] Resolute [place] 3.5mm 2.1-2.7fr 26mm 140cm Rapid Exchange - [id number] - [id number] Implanted:Qty : 1 on 02/15/2021 by Tyrel Flores MD at [facility] Stent Left: Coronary Medtronic Inc 10/22/2021 [id number] / [id number] / [id number] Description:LAD Medtronic [employer] X [id number] Resolute [place] 3.5mm 2.1-2.7fr 26mm 140cm Rapid Exchange - [id number] - [id number] Implanted:Qty : 1 on 02/15/2021 by Tyrel Flores MD at [facility] Stent Left: Coronary Medtronic Inc 08/23/2021 [id number] / [id number] / [id number] 1 Description:LAD Med[employer]onic [employer] X [id number] Resolute [place] 3mm 2.1-2.7fr 22mm 140cm Rapid Exchange Radiopaque - [id number] - [id number] Implanted:Qty : 1 on 02/15/2021 by Tyrel Flores MD at [facility] Stent Left: Coronary Medtronic Inc 12/08/2023 [id number] / [id number] / [id number] Description:LAD [employer] Angio-Seal Vip 6fr Closere Device [id number] - [id number] - [id number] Implanted:Qty : 1 on 06/02/2023 by Tyrel Flores MD at [facility] Vascular Closure Device [employer] 01/01/2024 [id number] / [id number] / [id number] Procedures Procedure Name Priority Date/Time Associated Diagnosis Comments US VEIN DUPLEX LOWER EXTREMITY BILATERAL COMPLETE Schedule Routine, Read Routine (OP Routine) 05/10/2024 10:08 AM CDT Personal history of PE (pulmonary embolism) PROTEIN ELECTROPHORESIS, WITH REFLEX, SERUM Routine 04/09/2024 11:15 AM HEALTHCARE CORPORATE ACCOUNT DIRECTOR Type 2 diabetes mellitus without complication, without long-term current use of insulin (HCC) PULMONARY FUNCTION TEST (PFT) Routine 04/08/2024 12:59 PM HEALTHCARE CORPORATE ACCOUNT DIRECTOR Acute pulmonary embolism without acute cor pulmonale, unspecified pulmonary embolism type (HCC) XR CHEST PA LATERAL 2 VIEWS Schedule Routine, Read Routine (OP Routine) 04/08/2024 11:13 AM HEALTHCARE CORPORATE ACCOUNT DIRECTOR Acute pulmonary embolism without acute cor pulmonale, unspecified pulmonary embolism type (HCC) EGFR Routine 04/06/2024 1:23 PM HEALTHCARE CORPORATE ACCOUNT DIRECTOR Type 2 diabetes mellitus without complication, without long-term current use of insulin (HCC) Essential hypertension COMPREHENSIVE METABOLIC PANEL Routine 04/06/2024 1:23 PM HEALTHCARE CORPORATE ACCOUNT DIRECTOR Type 2 diabetes mellitus without complication, without long-term current use of insulin (HCC) Essential hypertension POCT HEMOGLOBIN A1C Routine 04/06/2024 12:54 PM HEALTHCARE CORPORATE ACCOUNT DIRECTOR Type 2 diabetes mellitus without complication, without long-term current use of insulin (HCC) US GROIN PSEUDO DUPLEX LEFT Schedule Routine, Read Routine (OP Routine) 03/05/2024 2:56 PM HEALTHCARE CORPORATE ACCOUNT DIRECTOR Left inguinal pain Right inguinal pain S/P IVC filter US GROIN PSEUDO DUPLEX RIGHT Schedule Routine, Read Routine (OP Routine) 03/05/2024 2:56 PM HEALTHCARE CORPORATE ACCOUNT DIRECTOR Left inguinal pain Right inguinal pain S/P IVC filter EGFR Routine 02/23/2024 10:32 AM HEALTHCARE CORPORATE ACCOUNT DIRECTOR Acute renal failure, unspecified acute renal failure type DIFFERENTIAL AUTO Routine 02/23/2024 10:32 AM HEALTHCARE CORPORATE ACCOUNT DIRECTOR Acute renal failure, unspecified acute renal failure type Anemia, unspecified type COMPREHENSIVE METABOLIC PANEL Routine 02/23/2024 10:32 AM HEALTHCARE CORPORATE ACCOUNT DIRECTOR Acute renal failure, unspecified acute renal failure type CBC WITH AUTO DIFFERENTIAL Routine 02/23/2024 10:32 AM HEALTHCARE CORPORATE ACCOUNT DIRECTOR Acute renal failure, unspecified acute renal failure type Anemia, unspecified type MAGNESIUM Routine 02/23/2024 10:32 AM HEALTHCARE CORPORATE ACCOUNT DIRECTOR Acute renal failure, unspecified acute renal failure type VITAMIN B12 Routine 02/23/2024 10:32 AM HEALTHCARE CORPORATE ACCOUNT DIRECTOR Fatigue, unspecified type HEPATITIS C ANTIBODY Routine 01/15/2024 2:49 PM HEALTHCARE CORPORATE ACCOUNT DIRECTOR Type 2 diabetes mellitus without complication, without long-term current use of insulin (HCC) Essential hypertension Coronary artery disease involving rampart coronary artery of rampart heart without angina pectoris Hypothyroidism, unspecified type Mixed hyperlipidemia ALBUMIN CREATININE RATIO, URINE Routine 01/15/2024 2:49 PM HEALTHCARE CORPORATE ACCOUNT DIRECTOR Type 2 diabetes mellitus without complication, without long-term current use of insulin (HCC) Essential hypertension Coronary artery disease involving rampart coronary artery of rampart heart without angina pectoris Hypothyroidism, unspecified type [...] AM CDT Narrative 05/10/2024 2:19 PM CDT [facility] - Department of Vascular Surgery, Vascular Laboratory [address] [place] [address] Lower Extremity Venous Ultrasound Report Patient Name: DEBBIE MEIER : 1955 (68y 4m) Study Date: 05/10/2024 9:48:22 AM Gender: F Tech: IA Location: [facility] Provider: JUMANA PARKER Quality: Adequate Order Provider: [...] Personal history of pulmonary embolism. FINDINGS: Performing Resident Buyer: Gabbi Sutton RVT. Bilateral: Venous Doppler signals [...] above. Electronically Signed By: Adan Argueta MD [facility] [phone] 05/10/2024 1:30:59 PM CDT Procedure Note Adan Argueta MD - 05/10/2024 [facility] - Department of Vascular Surgery,Vascular Laboratory [address] [place] [address] Lower Extremity Venous Ultrasound Report Patient Name: DEBBIE MEIER : 1955 (68y 4m) Study Date: 05/10/2024 9:48:22 AM Gender: F Tech: IA Location: [facility] Ref Provider: JUMANA PARKER Quality: Adequate Order Provider: JUMANA PARKER PROCEDURES: Vascular Report: Venous Duplex imaging was performed bilaterally in the lower extremities.The common femoral, femoral, popliteal, posterior tibial, peroneal veins wereevaluated for patency, spontaneity and phasicity with Doppler, compression and augmentationmaneuvers. Great saphenous vein proximal at the junction was evaluated with compressionmaneuvers. INDICATIONS: Z86.711 Personal history of pulmonary embolism. FINDINGS: Performing Resident Buyer: Gabbi Sutton RVT. Bilateral: Venous Doppler signals [...] above. Electronically Signed By: Adan Argueta MD [facility] [phone] 05/10/2024 1:30:59 PM CDT [facility] Markos Parker MD [facility] [place] PROCEDURES Final Re sult * (ABNORMAL) Protein electrophoresis with reflex, serum with interpretation (04/09/2024 11:15 AM HEALTHCARE CORPORATE ACCOUNT DIRECTOR) Protein, sr 8.9(H) 6.2 - 8.2 g/dL Albumin 4.7 3.2 - 5.0 g/dL [facility] Alpha-1 globulin 0.3 0.2 - 0.4 g/dL [facility] Alpha-2 globulin 1.1(H) 0.5 - 1.0 g/dL [facility] Beta-1 globulin 0.6 0.3 - 0.6 g/dL [facility] Beta-2 globulin 0.5 0.2 - 0.6 g/dL [facility] Gamma globulin 1.7 0.5 - 1.7 g/dL [facility] SPEP interp Please see comment [facility] Comment: No apparent monoclonal peak Reviewed and signed by Luis Infante MD 04/12/2024 Blood 04/09/2024 11:1 5 AM HEALTHCARE CORPORATE ACCOUNT DIRECTOR 04/09/2024 11:37 AM HEALTHCARE CORPORATE ACCOUNT DIRECTOR us Adan Caldera MD LAB BLOOD ORDERABLES Final Re sult [facility] [place] [address] * Pulmonary Function Test - (04/08/2024 12:59 PM HEALTHCARE CORPORATE ACCOUNT DIRECTOR) FVC PRE 2.19 L [facility] FVC %PRE PRED 94 % [facility] FVC POST 2.37 L [facility] FVC %POST PRED 102 % [facility] FEV1 PRE 1.53 L [facility] FEV1 %PRE PRED 83 % [facility] FEV1 POST 1.63 L [facility] FEV1 %POST PRED 89 % [facility] FEV1/FVC PRE 69.9 % [facility] FEV1/FVC POST 68.9 % [facility] FRC PL PRE 2.72 L [facility] FRC PL %PRE PRED 107 % [facility] RV PRE 2.15 L [facility] RV %PRE PRED 107 % [facility] TLC PRE 4.34 L [facility] TLC %PRE PRED 97 % [facility] DLCO PRE 8.1 ml/min/mmH g [facility] DLCO %PRE PRED 47 % [facility] FIO2 % 21.00 % [facility] PaO2 88.0 mmHg [facility] PaCO2 34.0 mmHg [facility] pH 7.45 [facility] A-aDO2 POC 19.0 mmHg [facility] METHGB % 0.6 % [facility] COHb POC 1.8 % [facility] HCO3 23.6 mEq/L [facility] Anatomical Region Laterality Modality PFT 04/08/2024 12:0 3 PM HEALTHCARE CORPORATE ACCOUNT DIRECTOR Narrative 04/09/2024 6:42 PM HEALTHCARE CORPORATE ACCOUNT DIRECTOR Table formatting from the original result was not included. [facility] Division of Pulmonary & Critical Care Medicine [address] [place] [address]; [place] [address]; [place] [address]; [phone] Pulmonary Function Laboratory Pulmonary Stress Test Simple/Oxygen [...] Work [distance (m) x body wt (kg)]: 91430 kg.m (normal >60,000kg.m) Oxygen required to maintain [...] with the written final report. PFT performed at:->[facility] Adult PFT Lab- [facility] Procedure:->Spirometry Procedure:->Spirometry with Bronchodilator Procedure:->Oxygen Assessment Titration [...] and %HbO2 is age dependent. However, the [facility] Function Laboratory defines hypoxemia as a PaO2 <56 mm Hg or a %HbO2 <89%. Starting on March of 2024 the [facility] Pulmonary Function Laboratory utilizes race neutral GLI Global normative equations. us Fani Huff MD PFT ORDERABLES Final R esult * XR Chest Pa Lateral 2 Views (04/08/2024 11:13 AM HEALTHCARE CORPORATE ACCOUNT DIRECTOR) Anatomical Region Laterality Modality Body, Chest N/A Computed Radiogr aphy 04/08/2024 11:1 9 AM HEALTHCARE CORPORATE ACCOUNT DIRECTOR Impressions 04/08/2024 11:19 AM HEALTHCARE CORPORATE ACCOUNT DIRECTOR Comparison is made to prior chest radiograph 12/13/2020. Heart size is normal. Lungs are clear. Surgical clips noted within the upper abdomen. There is an inferior vena cava filter. Electronically signed by: Jonas Hernadez M.D. Narrative 04/08/2024 11:19 AM HEALTHCARE CORPORATE ACCOUNT DIRECTOR EXAMINATION: 2 view chest radiograph Procedure Note Jonas Hernadez MD - 04/08/2024 EXAMINATION: 2 view chest radiograph IMPRESSION: Comparison is made to prior chest radiograph 12/13/2020. Heart size is normal. Lungs are clear. Surgical clips noted within the upper abdomen. There is an inferior vena cava filter. Electronically signed by: Jonas Hernadez M.D. us Fani Huff MD IMG XR PROCEDURES Final Result * eGFR (04/06/2024 1:23 PM HEALTHCARE CORPORATE ACCOUNT DIRECTOR) eGFR 82 >=60 mL/min/1. 73 m2 Comment: [...] last reviewed 2021. Blood 04/06/2024 1:23 PM HEALTHCARE CORPORATE ACCOUNT DIRECTOR 04/06/2024 1:51 PM HEALTHCARE CORPORATE ACCOUNT DIRECTOR us Adan Caldera MD LAB BLOOD ORDERABLES Final Re sult [facility] [place] [address] * (ABNORMAL) Comprehensive metabolic panel (04/06/2024 1:23 PM HEALTHCARE CORPORATE ACCOUNT DIRECTOR) Sodium 139 135 - 145 mmol/L Potassium, pl 4.1 3.3 - 4.9 mmol/L [facility] Chloride 98 97 - 110 mmol/L [facility] CO2 25 22 - 32 mmol/L [facility] Anion gap 16(H) 2 - 15 mmol/L [facility] BUN 28(H) 6 - 25 mg/dL [facility] Creatinine 0.78 0.60 - 1.10 mg/dL [facility] Glucose 260(H) 70 - 199 mg/dL [facility] Comment: Interpretive Data Fasting glucose >/= 126 [...] 2022. Calcium 9.5 8.5 - 10.3 mg/dL [facility] Bilirubin, total 0.6 0.1 - 1.2 mg/dL [facility] Protein, pl 8.6(H) 6.5 - 8.5 g/dL [facility] Albumin 4.5 3.5 - 5.0 g/dL [facility] Alk phos 104 40 - 130 Units/L [facility] ALT 20 7 - 45 Units/L [facility] AST 25 10 - 45 Units/L [facility] Blood 04/06/2024 1:23 PM HEALTHCARE CORPORATE ACCOUNT DIRECTOR 04/06/2024 1:43 PM HEALTHCARE CORPORATE ACCOUNT DIRECTOR us Adan Caldera MD LAB BLOOD ORDERABLES Final Re sult [facility] [place] [address] * (ABNORMAL) POCT hemoglobin A1c (04/06/2024 12:54 PM HEALTHCARE CORPORATE ACCOUNT DIRECTOR) Hemoglobin A1C, POC 6.9 4.0 - 5.6 % Capillary blood 04/06/2024 1 2:54 PM HEALTHCARE CORPORATE ACCOUNT DIRECTOR us Adan Caldera MD POINT OF CARE TEST ORDERABLES Final Result * US Groin Pseudo Right (03/05/2024 2:56 PM HEALTHCARE CORPORATE ACCOUNT DIRECTOR) Anatomical Region Laterality Modality Vascular Right Ultrasound 03/05/2024 3:43 PM HEALTHCARE CORPORATE ACCOUNT DIRECTOR Impressions 03/05/2024 3:43 PM HEALTHCARE CORPORATE ACCOUNT DIRECTOR 1. No pseudoaneurysm or arteriovenous fistula in the right or left groin. 2. There is a left groin hematoma. Electronically signed by: Vickie Kramer M.D. [facility] 03/05/2024 3:43 PM HEALTHCARE CORPORATE ACCOUNT DIRECTOR EXAMINATION: LIMITED right and left GROIN SONOGRAM [...] Groin Pseudo Duplex Left (03/05/2024 2:56 PM HEALTHCARE CORPORATE ACCOUNT DIRECTOR) Anatomical Region Laterality Modality Vascular Left Ultrasound 03/05/2024 3:43 PM HEALTHCARE CORPORATE ACCOUNT DIRECTOR Impressions 03/05/2024 3:43 PM HEALTHCARE CORPORATE ACCOUNT DIRECTOR 1. No pseudoaneurysm or arteriovenous fistula in the right or left groin. 2. There is a left groin hematoma. Electronically signed by: Vickie Kramer M.D. Narrative 03/05/2024 3:43 PM HEALTHCARE CORPORATE ACCOUNT DIRECTOR EXAMINATION: LIMITED right and left GROIN SONOGRAM [...] by: Vickie Kramer M.D. us Saira Mcguire CODING CLERK IMG US PROCEDURES Final Resul t * eGFR (02/23/2024 10:32 AM HEALTHCARE CORPORATE ACCOUNT DIRECTOR) eGFR >90 >=60 mL/min/1. 73 m2 Comment: [...] reviewed 2021. Blood 02/23/2024 10:3 2 AM HEALTHCARE CORPORATE ACCOUNT DIRECTOR 02/23/2024 10:52 AM HEALTHCARE CORPORATE ACCOUNT DIRECTOR us Saira Mcguire NP LAB BLOOD ORDERABLES Final Re sult [facility] [place] [address] * (ABNORMAL) Differential, auto (02/23/2024 10:32 AM HEALTHCARE CORPORATE ACCOUNT DIRECTOR) Neutrophil abs 6.4 1.5 - 6.5 K/cumm Imm gran abs 0.2(H) 0.0 - 0.1 K/cumm [facility] Lymphocyte abs 2.7 0.8 - 3.3 K/cumm [facility] Monocyte abs 0.7 0.2 - 0.8 K/cumm [facility] Eosinophil abs 0.3 0.0 - 0.5 K/cumm [facility] Basophil abs 0.1 0.0 - 0.1 K/cumm [facility] Neutrophil pct 61.6 % [facility] Comment: Interpretive Data Percent cell count reference ranges are not reported, since discordance with absolute values may lead to misinterpretation of CBC data. Current Interpretive Data was last revised on 2017. Imm gran pct 1.5 % [facility] Comment: Interpretive Data Percent cell count reference ranges are not reported, since discordance with absolute values may lead to misinterpretation of CBC data. Current Interpretive Data was last revised on 2017. Lymphocyte pct 26.2 % [facility] Comment: Interpretive Data Percent cell count reference ranges are not reported, since discordance with absolute values may lead to misinterpretation of CBC data. Current Interpretive Data was last revised on 2017. Monocyte pct 6.5 % [facility] Comment: Interpretive Data Percent cell count reference ranges are not reported, since discordance with absolute values may lead to misinterpretation of CBC data. Current Interpretive Data was last revised on 2017. Eosinophil pct 3.2 % [facility] Comment: Interpretive Data Percent cell count reference ranges are not reported, since discordance with absolute values may lead to misinterpretation of CBC data. Current Interpretive Data was last revised on 2017. Basophil pct 1.0 % [facility] Comment: Interpretive Data Percent cell count reference ranges are not reported, since discordance with absolute values may lead to misinterpretation of CBC data. Current Interpretive Data was last revised on 2017. Blood 02/23/2024 10:3 2 AM HEALTHCARE CORPORATE ACCOUNT DIRECTOR 02/23/2024 10:47 AM HEALTHCARE CORPORATE ACCOUNT DIRECTOR us Saira Mcguire CODING CLERK LAB BLOOD ORDERABLES Final Re sult [facility] Department [place] [address] * (ABNORMAL) CBC with auto differential (02/23/2024 10:32 AM HEALTHCARE CORPORATE ACCOUNT DIRECTOR) WBC 10.4(H) 3.8 - 9.9 K/cumm Hgb 11.0(L) 11.9 - 15.5 g/dL [facility] Hct 35.5(L) 35.6 - 45.5 % [facility] Plt 294 150 - 400 K/cumm [facility] MPV 10.1 9.1 - 12.3 fL [facility] RBC 3.77(L) 3.90 - 5.20 M/cumm [facility] MCV 94.2 81.3 - 96.4 fL [facility] MCH 29.2 27.1 - 33.3 pg [facility] MCHC 31.0(L) 32.3 - 35.7 g/dL [facility] RDW CV 14.6 11.1 - 14.9 % [facility] RDW SD 50.6(H) 35.7 - 48.1 fL [facility] NRBC abs 0.00 0.00 - 0.01 K/cumm [facility] Blood 02/23/2024 10:3 2 AM HEALTHCARE CORPORATE ACCOUNT DIRECTOR 02/23/2024 10:47 AM HEALTHCARE CORPORATE ACCOUNT DIRECTOR us Saira Mcguire CODING CLERK LAB BLOOD ORDERABLES Final Re sult Performing Organization Address City/[facility]/ZIP Co de Phone Number [facility] [place] [address] * Magnesium (02/23/2024 10:32 AM HEALTHCARE CORPORATE ACCOUNT DIRECTOR) Pathologist [facility] Magnesium 1.5 1.4 - 2.5 mg/dL Blood 02/23/2024 10:3 2 AM HEALTHCARE CORPORATE ACCOUNT DIRECTOR 02/23/2024 10:47 AM HEALTHCARE CORPORATE ACCOUNT DIRECTOR Saira Mcguire CODING CLERK LAB BLOOD ORDERABLES Final Re sult [facility] [place] [address] * Vitamin B12 (02/23/2024 10:32 AM HEALTHCARE CORPORATE ACCOUNT DIRECTOR) Vitamin B12 706 230 - 1,250 pg/mL Blood 02/23/2024 10:3 2 AM HEALTHCARE CORPORATE ACCOUNT DIRECTOR 02/23/2024 10:47 AM HEALTHCARE CORPORATE ACCOUNT DIRECTOR us Saira Mcguire CODING CLERK LAB BLOOD ORDERABLES Final Re sult [facility] [place] [address] * (ABNORMAL) Comprehensive metabolic panel (02/23/2024 10:32 AM HEALTHCARE CORPORATE ACCOUNT DIRECTOR) Sodium 141 135 - 145 mmol/L Potassium, pl 3.6 3.3 - 4.9 mmol/L [facility] Chloride 102 97 - 110 mmol/L [facility] CO2 27 22 - 32 mmol/L [facility] Anion gap 12 2 - 15 mmol/L [facility] BUN 10 6 - 25 mg/dL [facility] Creatinine 0.58(L) 0.60 - 1.10 mg/dL [facility] Glucose 119 70 - 199 mg/dL [facility] Comment: Interpretive Data Fasting glucose >/= 126 [...] Calcium 9.4 8.5 - 10.3 mg/dL [facility] Bilirubin, total 0.5 0.1 - 1.2 mg/dL [facility] Protein, pl 8.4 6.5 - 8.5 g/dL [facility] Albumin 3.8 3.5 - 5.0 g/dL [facility] Alk phos 112 40 - 130 Units/L [facility] ALT 24 7 - 45 Units/L [facility] AST 33 10 - 45 Units/L [facility] Blood 02/23/2024 10:3 2 AM HEALTHCARE CORPORATE ACCOUNT DIRECTOR 02/23/2024 10:47 AM HEALTHCARE CORPORATE ACCOUNT DIRECTOR Saira Mcguire NP LAB BLOOD ORDERABLES Final Re sult Performing Organization Address [facility] de Phone Number [facility] [place] [address] * Hepatitis C antibody Blood (01/15/2024 2:49 PM HEALTHCARE CORPORATE ACCOUNT DIRECTOR) [facility] Hep C Ab Nonreactive Nonreactive Comment:Antibodies to HCV no t detected. Does NOT exclude the possibility of recent exposure to HCV. Current interpretive data was last revised on 21 Blood 01/15/2024 2:49 PM HEALTHCARE CORPORATE ACCOUNT DIRECTOR 01/15/2024 3:18 PM HEALTHCARE CORPORATE ACCOUNT DIRECTOR Adan Caldera MD LAB MICROBIOLOGY - GENERAL OR DERABLES Final Result Performing Organization Address [facility] Phone Number [facility] [place] [address] * (ABNORMAL) Albumin Creatinine Ratio, Urine (01/15/2024 2:49 PM HEALTHCARE CORPORATE ACCOUNT DIRECTOR) [facility] Albumin Ur 13.4 mg/L Comment: Interpretive Data No reference range established. Current interpretive data was last revised 2018. Creatinine Ur 42.5 mg/dL [facility] Comment: Interpretive Data No reference range established. Current interpretive data was last revised 2018. Albumin Creatinine Ratio, Ur 32(H) 1 - 29 mg/g [facility] Urine 01/15/2024 2:49 PM HEALTHCARE CORPORATE ACCOUNT DIRECTOR 01/15/2024 3:34 PM HEALTHCARE CORPORATE ACCOUNT DIRECTOR us Adan Caldera MD LAB URINE ORDERABLES Final Re sult Performing Organization Address [facility] de Phone Number [facility] [place] [address] * POCT lipid panel (10/13/2023 2:49 PM CDT) Cholesterol, POC 137 mg/dL HDL, POC 46 mg/dL Triglycerides, POC 218 mg/dL LDL Cholesterol POC 48 mg/dL Chol/HDL Ratio, POC 3.0 Non-HDL Cholesterol, POC 91 mg/dL Cholesterol Total, POC 137 mg/dL Capillary blood 10/13/2023 2 :49 PM CDT Adan Caldera MD POINT OF CARE TEST [...] OVERALL FINAL ASSESSMENT: BI-RADS CATEGORY 1: Negative. Adan Caldera MD IMG MAMMO PROCEDURES Final Re sult from Last 3 Months or Most Recently Relevant to Health Maintenance Insurance MEDICARE SOLUTIONS MEDICARE SOLUTIONS MEDICARE [place] Advance Directives For more information, please contact: [phone] * Full Code (Latest Code Status on File) Date Activated Date Inactivated Comments 02/15/2021 2:51 PM 02/15/2021 10:17 PM Care Teams Psychiatric Aide Relationship Specialty Start Date End Date Adan Caldera MD [address] [address] PCP - General 06/19/17
--- OUTSIDE RECORDS SUMMARY | 2024-05-11 12:50 | XMS_ITS | Encounter Summary ---
Author Organization [facility] Address [address] [place] [address] Phone Care Team Providers Care Explosion Welder Name Role Phone Adan Caldera MD Primary Care Provider [phone] Reason for Visit * Diagnostic Imaging (Routine) - Closed Specialty Diagnoses / Procedures Referred By Contac t Referred To Contact Diagnoses Personal history of PE (pulmonary embolism) Procedures US Vein Duplex Lower Extremity Bilateral Complete Jumana Castañeda MD [address] [facility] [address] [place] [address] Phone: tel: fax: [address] [address] Referral ID Status Reason Start Date Expiration Date Visits Re quested Visits Authorized [id number] Closed 05/04/2024 06/03/2025 1 1 Encounter Details Date Type Department Care Team (Latest Contact Info) Description 05/10/2024 11:00 AM CDT Ancillary Procedure [facility] [address] [facility] 8th [place] [address] [place] [address] Personal history of PE (pulmonary embolism) Social History Tobacco Use Types Packs/Day Years Used Date Smoking Tobacco: Former Cigarettes 0.2 10 Q uit: 01/12/2024 Smokeless Tobacco: Never Comments:1PPD x 30 years sheri or to cutting down Alcohol Use Standard Drinks/Week [...] on file Legal 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 Gender Identity Not on file Sexual Orientation Not on file documented as of this encounter Plan of Treatment Scheduled Procedures Name Priority Associated Diagnoses Date/Ti me COLONOSCOPY Encounter for screening colonoscopy COLONOSCOPY Encounter for screening colonoscopy COLONOSCOPY Encounter for screening colonoscopy COLONOSCOPY Encounter for screening colonoscopy COLONOSCOPY Encounter for screening colonoscopy documented as of this encounter Procedures Procedure Name Priority Date/Time Associated Diagnosis Comments US VEIN DUPLEX LOWER EXTREMITY BILATERAL COMPLETE Schedule Routine, Read Routine (OP Routine) 05/10/2024 10:08 AM CDT Personal history of PE (pulmonary embolism) documented in this encounter Results * US Vein Duplex Lower Extremity Bilateral Complete (05/10/2024 10:08 AM CDT) Anatomical Region Laterality Modality Vascular Bilateral Ultrasound 05/10/2024 9:48 AM CDT Narrative 05/10/2024 2:19 PM CDT [facility] - Department of Vascular Surgery, Vascular Laboratory [address] [place] [address] Lower Extremity Venous Ultrasound Report Patient Name: FRANCES MEIER : 1955 (68y 4m) Study Date: 05/10/2024 9:48:22 AM Gender: F Tech: [place] Location: [facility] Ref Provider: JUMANA CASTAÑEDA Quality: Adequate Order Provider: JUMANA CASTAÑEDA PROCEDURES: Vascular Report: Venous Duplex imaging was performed bilaterally in the lower extremities. The common femoral, femoral, popliteal, posterior tibial, peroneal veins were evaluated for patency, spontaneity and phasicity with Doppler, compression and augmentation maneuvers. Great saphenous vein proximal at the junction was evaluated with compression maneuvers. INDICATIONS: Z86.711 Personal history of pulmonary embolism. FINDINGS: Performing Floor Finisher Helper: Gabbi Sutton RVT. Bilateral: Venous Doppler signals [...] above. Electronically Signed By: Adan Argueta MD [facility] [phone] 05/10/2024 1:30:59 PM CDT Procedure Note Adan Argueta MD - 05/10/2024 [facility] - Department of Vascular Surgery,Vascular Laboratory [address] [place] [address] Lower Extremity Venous Ultrasound Report Patient Name: FRANCES MEIER : 1955 (68y 4m) Study Date: 05/10/2024 9:48:22 AM Gender: F Tech: [place] Location: [facility] Ref Provider: JUMANA CASTAÑEDA Quality: Adequate Order Provider: JUMANA CASTAÑEDA PROCEDURES: Vascular Report: Venous Duplex imaging was performed bilaterally in the lower extremities.The common femoral, femoral, popliteal, posterior tibial, peroneal veins wereevaluated for patency, spontaneity and phasicity with Doppler, compression and augmentationmaneuvers. Great saphenous vein proximal at the junction was evaluated with compressionmaneuvers. INDICATIONS: Z86.711 Personal history of pulmonary embolism. FINDINGS: Performing Floor Finisher Helper: Gabbi Sutton RVT. Bilateral: Venous Doppler signals [...] above. Electronically Signed By: Adan Argueta MD [facility] [phone] 05/10/2024 1:30:59 PM CDT us Jumana Castañeda MD IM US PROCEDURES Final Re sult documented in this encounter Visit Diagnoses Diagnosis Personal history of PE (pulmonary embolism) Personal history of venous thrombosis and embolism documented in this encounter Care Teams Explosion Welder Relationship Specialty Start Date End Date Adan Caldera MD [address] [place] [address] PCP - General 06/19/17 documented as of this encounter
== END 2024-05-11 11:05 | disposition home or self-care (01) ==
PROVIDERS: PCP Internal Medicine; Visit Provider Nurse Practitioner Family
DX: K76.0 Fatty (change of) liver, not elsewhere classified (principal)
CPT/HCPCS: 36415; 80053; 85027; 85610

== ENCOUNTER 2024-06-01 11:41 | Outpatient (NON) | payer MEDICARE, SELFPAY ==
--- OUTSIDE RECORDS SUMMARY | 2024-06-01 13:02 | XMS_ITS | Data Portability ---
Author Organization [facility] Beck[place]eyer H Address [address] [facility] [place] [address] Care Team Providers Care Inside Sales Account Representative Name Role Phone THERESE HACKETT Educational Technology Specialist [phone] Assessment No assessment recorded. Plan of Treatment Reminders Order Date Submit Date Provider Last Modified By Organization Details Last Modified Time Details Appointments None recorded. Lab urinalysis, dipstick 2016 017 [email or web address] In-Office Order, Internal Use Only DO Not Attach Compendium DO Not Attach Compendium, Do Not Delete/merge, [id number] 7 11:34:37 pap, IG + HPV, cervical 2016 017 [facility], [address] [place] [address], [address], [place], [address], 7 16:15:56 bacterial vaginosis + vaginitis panel, vaginal 2016 017 [facility], [address] [facility], [address], [place], [address], 7 10:36:34 urinalysis, dipstick 2016 017 [email or web address] In-Office Order, Internal Use Only DO Not Attach Compendium DO Not Attach Compendium, Do Not Delete/merge, [id number] 7 17:16:06 fecal occult blood, stool 2016 017 [email or web address] In-Office Order, Internal Use Only DO Not Attach Compendium DO Not Attach Compendium, Do Not Delete/merge, [id number] 17:16:06 Referral None recorded. Procedures None recorded. Surgeries None recorded. Imaging MAMMO, screening, bilateral 2016 017 balbir [facility] Add On Lab Orders, [address] [facility], [place], [address], 17:16:06 US, pelvis, transabdomi nal + transvagina l 2016 017 [facility] Add On Lab Orders, [address] [facility], [place], [address], 16:44:43 Medication Orders None recorded. Patient TargetsNo targets recorded. Patient Instructions Encounter Date Encounter Id Patient Instructions Last Modified By Organization Details Last Modified Time 09/13/2016 [id number] When You Want to Lose Weight: Care Instructions sdevriesma Not available 09/13/2016 17:11:37 mammogram: about this test balbir Not available 09/13/2016 17:16:06 proteinuria: care instructions sdevriesma Not available 09/13/2016 17:11:37 10/18/2016 [id number] bladder training: care instructions sdevriesma Not available 10/18/2016 16:41:24 kegel exercises: care instructions sdevriesma Not available 10/18/2016 16:41:24 Stress Incontinence: Care Instructions sdevriesma Not available 10/18/2016 16:41:24 proteinuria: care instructions sdevriesma Not available 10/18/2016 16:41:24 Reason for Referral None Reported. Results Created Date Observation Date Name Description Value Unit Range Abnormal Flag Note LastModifiedBy Organization Detail LastModifiedTime 10/19/19 17 10/18/2016 urina lysis , dipst ick Leukocytes Negati ve Not Available In-Office Order Internal Use Only DO Not Attach Compendium DO Not Attach Compendium, Do Not Delete/merge, [id number] 10/18/2016 11:14:15 10/19/19 17 10/18/2016 urina lysis , dipst ick Nitrite negati ve Not Available In-Office Order Internal Use Only DO Not Attach Compendium DO Not Attach Compendium, Do Not Delete/merge, [id number] 10/18/2016 11:14:15 10/19/19 17 10/18/2016 urina lysis , dipst ick Urobilinogen .2 Not Available In-Of fice Order Internal Use Only DO Not Attach Compendium DO Not Attach Compendium, Do Not Delete/merge, 10/18/2016 11:14:15 10/19/19 17 10/18/2016 urina lysis , dipst ick Protein 100 Not Available In-Office Order Internal Use Only DO Not Attach Compendium DO Not Attach Compendium, Do Not Delete/merge, 10/18/2016 11:14:15 10/19/19 17 10/18/2016 urina lysis , dipst ick pH 5.5 Not Available In-Office Order Internal Use Only DO Not Attach Compendium DO Not Attach Compendium, Do Not Delete/merge, 10/18/2016 11:14:15 10/19/19 17 10/18/2016 urina lysis , dipst ick Blood Small Not Available In-Office Order Internal Use Only DO Not Attach Compendium DO Not Attach Compendium, Do Not Delete/merge, 10/18/2016 11:14:15 10/19/19 17 10/18/2016 urina lysis , dipst ick Specific [place] 1.030 Not Available In-Off ice Order Internal Use Only DO Not Attach Compendium DO Not Attach Compendium, Do Not Delete/merge, 10/18/2016 11:14:15 10/19/19 17 10/18/2016 urina lysis , dipst ick Ketone Negati ve Not Available In-Office Order Internal Use Only DO Not Attach Compendium DO Not Attach Compendium, Do Not Delete/merge, 10/18/2016 11:14:15 10/19/19 17 10/18/2016 urina lysis , dipst ick Bilirubin Negati ve Not Available In-Office Order Internal Use Only DO Not Attach Compendium DO Not Attach Compendium, Do Not Delete/merge, 10/18/2016 11:14:15 10/19/19 17 10/18/2016 urina lysis , dipst ick Glucose Negati ve Not Available In-Office Order Internal Use Only DO Not Attach Compendium DO Not Attach Compendium, Do Not Delete/merge, [id number] 10/18/2016 11:14:15 09/14/19 17 09/13/2016 fecal occul t blood , stool Occult Blood negati ve Not Available In-Office Order Internal Use Only DO Not Attach Compendium DO Not Attach Compendium, Do Not Delete/merge, 09/13/2016 15:38:50 09/14/19 17 09/13/2016 urina lysis , dipst ick Leukocytes Negati ve Not Available In-Office Order Internal Use Only DO Not Attach Compendium DO Not Attach Compendium, Do Not Delete/merge, 09/13/2016 15:37:29 09/14/19 17 09/13/2016 urina lysis , dipst ick Nitrite negati ve Not Available In-Office Order Internal Use Only DO Not Attach Compendium DO Not Attach Compendium, Do Not Delete/merge, 09/13/2016 15:37:29 09/14/19 17 09/13/2016 urina lysis , dipst ick Urobilinogen 1 Not Available In-Of fice Order Internal Use Only DO Not Attach Compendium DO Not Attach Compendium, Do Not Delete/merge, 09/13/2016 15:37:29 09/14/19 17 09/13/2016 urina lysis , dipst ick Protein 100 Not Available In-Office Order Internal Use Only DO Not Attach Compendium DO Not Attach Compendium, Do Not Delete/merge, 09/13/2016 15:37:29 09/14/19 17 09/13/2016 urina lysis , dipst ick pH 5.5 Not Available In-Office Order Internal Use Only DO Not Attach Compendium DO Not Attach Compendium, Do Not Delete/merge, 09/13/2016 15:37:29 09/14/1909/13/2016 urina lysis , dipst ick Blood Non-He molyze d: Trace Not Available In-Office Order Internal Use Only DO Not Attach Compendium DO Not Attach Compendium, Do Not Delete/merge, 09/13/2016 15:37:29 09/14/19 09/13/2016 urina lysis , dipst ick Specific [place] 1.020 Not Available In-Off ice Order Internal Use Only DO Not Attach Compendium DO Not Attach Compendium, Do Not Delete/merge, 09/13/2016 15:37:29 09/14/1909/13/2016 urina lysis , dipst ick Ketone Negati ve Not Available In-Office Order Internal Use Only DO Not Attach Compendium DO Not Attach Compendium, Do Not Delete/merge, 09/13/2016 15:37:09/14/1909/13/2016 urina lysis , dipst ick Bilirubin Negati ve Not Available In-Office Order Internal Use Only DO Not Attach Compendium DO Not Attach Compendium, Do Not Delete/merge, 09/13/2016 15:37:09/14/1909/13/2016 urina lysis , dipst ick Glucose Negati ve Not Available In-Office Order Internal Use Only DO Not Attach Compendium DO Not Attach Compendium, Do Not Delete/merge, 09/13/2016 15:37:29 09/14/1909/16/2016 verba l order see below: COMMEN T: IRAIDA E PROVI DE REQUE STED INFOR OVI Brown AND FAX TO [phone]. [place] REG[place] ATION S REQUI RES A WRITT EN AND SIVAKUMAR D REQUE ST BE FORWA RDED TO A LABOR ATORY FOLLO WING A VERBA L ORDER OF A LABOR ATORY TEST. IRAIDA E CARLOS T US TO MEET THIS REQUI REMEN T AND TO COMPL ETE OUR RECOR DS. DATE: ICD-10 DIAGN OSIS CODE( S):__ _ PHYSI DYLAN OR AUTHO RIZED DESIG NEE:_ _ PLEAS E PRINT PHYSI DYLAN OR AUTHO RIZED DESIG NEE SIGNA TURE: YOUR SIGNA TURE CONFI KOBE YOUR ORDER OF THE TEST( S) LISTE D Not Available [facility] ([facility]) [address] [facility], [place], [address], 09/16/2016 20:08:27 09/14/1909/16/2016 verba l order additional test(s) requested COMMEN T: TEST( S) ADDED PER JENNY Pelaez AT ACC NT 09-16 LOGGE D BY TATO VALENTINOER TEST# 37800 1 NUSWA B VAGIN ITIS PLUS (VG+) DIAGN OSIS CODES PROVI DED Z01.4 11 Not Available [facility] ([facility]) [address] [facility], [place], [address], 09/16/2016 20:08:27 09/14/19 17 09/17/2016 pap, IG + HPV, cervi emily diagnosis: COMMEN T PAM DOUGHERTY FOR INTRA EPITH ELIAL DELORIS N AND MYA WHITAKER . Not Available [facility] ([facility]) [address] [facility], [place], [address], 09/17/2016 16:15:56 09/14/1909/17/2016 pap, IG + HPV, cervi emily specimen adequacy: COMMEN T SATIS FACTO RY FOR EVALU ATION . ENDOC ERVIC AL AND/O R SQUAM OUS METAP LASTI C CELLS (ENDO CERVI EMILY COMPO NENT) ARE PRESE NT. Not Available [facility] ([facility]) [address] [facility], [place], [address], 09/17/2016 16:15:56 09/14/19 17 09/17/2016 pap, IG + HPV, cervi emily clinician provided ICD10: SCOTT Dunaway Z01.4 11 Not Available [facility] ([facility]) [address] [place], [address], 09/17/2016 16:15:56 09/14/19 17 09/17/2016 pap, IG + HPV, cervi emily performed by: SCOTT ARCE, RADHA Dunaway (ASCP ) Not Available [facility] ([facility]) [address] [place], [address], 09/17/2016 16:15:56 09/14/19 17 09/17/2016 pap, IG + HPV, cervi emily . . Not Available [facility] ([facility]) [address] [place], [address], 09/17/2016 16:15:56 09/14/19 17 09/17/2016 pap, IG + HPV, cervi emily note: SCOTT Dunaway THE PAP SMEAR IS A SCREE PADDY TEST DESIG JASON TO AID IN THE DETEC TION OF MARY LIGNA NT AND MALIG NANT CONDI TIONS OF THE UTERI NE CERVI X. IT IS NOT A DIAGN OSTIC PROCE DURE AND SHOUL D NOT BE USED THE SOLE MEANS OF DETEC TING CERVI EMILY CANCE R. BOTH FALSE -POSI TIVE AND FALSE -NEGA TIVE REPOR TS DO OCCUR . Not Available [facility] ([facility]) [address] [place], [address], 09/17/2016 16:15:56 09/14/19 17 09/17/2016 pap, IG + HPV, cervi emily test methodology: SCOTT Dunaway THIS LIQUI D BASED THINP REP(R ) PAP TEST WAS SCREE JASON WITH THE USE OF AN IMAGE GUIDE Salome Blankenship Not Available [facility] ([facility]) [address] [place], [address], 09/17/2016 16:15:56 09/14/19 17 09/17/2016 pap, IG + HPV, cervi emily HPV aptima NEGATI VE negati ve THIS TEST DETEC TS FOURT EEN HIGH- RISK HPV TYPES (16/1 8/31/ 33/35 /39/4 5/ 51/52 /56/5 8/59/ 66/68 ) WITHO UT DAVIDE LARISSA ATGAGE . Not Available [facility] ([facility]) [address] [place], [address], 09/17/2016 16:15:56 09/14/19 17 09/18/2016 bacte rial vagin osis + vagin itis panel , vagin al chlamydia trachomatis, ANNE MARIE NEGATI VE negati ve Not Available [facility] ([facility]) [address] [place], [address], 09/19/2016 10:36:34 09/14/19 17 09/18/2016 bacte rial vagin osis + vagin itis panel , vagin al neisseria gonorrhoeae, ANNE MARIE NEGATI VE negati ve Not Available [facility] ([facility]) [address] [place], [address], 09/19/2016 10:36:34 09/14/19 17 09/19/2016 bacte rial vagin osis + vagin itis panel , vagin al atopobium vaginae LOW - 0 score Not Available [facility] ([facility]) [address] [place], [address], 09/19/2016 10:36:34 09/14/19 17 09/19/2016 bacte rial vagin osis + vagin itis panel , vagin al bvab 2 LOW - 0 score Not Available [facility] ([facility]) [address] [place], [address], 09/19/2016 10:36:34 09/14/19 17 09/19/2016 bacte rial vagin osis + vagin itis panel , vagin al megasphaera 1 LOW - 0 score CALCU LATE TOTAL SCORE BY CORNELIA Lechuga THE 3 INDIV IDUAL BACTE RIAL VAGIN OSIS (BV) MARKE R SCORE S TOGET HER. TOTAL SCORE IS INTER PRETE D FOLLO WS: TOTAL SCORE 0-1: INDIC ATES THE ABSEN CE OF BV. TOTAL SCORE 2: INDET ERMIN ATE FOR BV. ADDIT IONAL CLINI EMILY DATA SHOUL D BE EVALU ATED TO ESTAB NAKUL A DIAGN OSIS. TOTAL SCORE 3-6: INDIC ATES THE PRESE NCE OF BV. THIS TEST WAS DEVEL OPED AND ITS PERFO RMANC E LULA CTERI STICS DETER MINED BY [employer]. IT HAS NOT BEEN CLEAR ED OR APPRO MARIAA BY THE FOOD AND DRUG ADMIN ISTRA TION. THE FDA HAS DETER MINED THAT SUCH CLEAR ANCE OR APPRO SARAH IS NOT NECES RUSSEL. Not Available [facility] ([facility]) [address] [place], [address], 09/19/2016 10:36:34 09/14/19 17 09/19/2016 bacte rial vagin osis + vagin itis panel , vagin al gely albicans, ANNE MARIE NEGATI VE negati ve Not Available [facility] ([facility]) [address] [place], [address], 09/19/2016 10:36:34 09/14/19 17 09/19/2016 bacte rial vagin osis + vagin itis panel , vagin al gely glabrata, ANNE MARIE NEGATI VE negati ve THIS TEST WAS DEVEL OPED AND ITS PERFO RMANC E LULA CTERI STICS DETER MINED BY [employer]. IT HAS NOT BEEN CLEAR ED OR APPRO MARIAA BY THE FOOD AND DRUG ADMIN ISTRA TION. THE FDA HAS DETER MINED THAT SUCH CLEAR ANCE OR APPRO SARAH IS NOT NECES RUSSEL. Not Available [facility] ([facility]) [address] [place], [address], 09/19/2016 10:36:34 09/14/19 17 09/19/2016 bacte rial vagin osis + vagin itis panel , vagin al trich vag by ANNE MARIE NEGATI VE negati ve Not Available [facility] ([facility]) [address] [facility], [place], [address], 09/19/2016 10:36:34 09/14/19 17 09/17/2016 writt en autho rivarshat ion written authorizatio n COMMEN T WRITT EN AUTHO RIZAT ION RECEI MARIAA. AUTHO RIZAT ION RECEI MARIAA FROM FANG SA SOLANOVIANCA Y,SHALE MINER BLASTING 09-17 LOGGE D BY RONNA VOGEL Y Not Available [facility] ([facility]) [address] [facility], [place], [address], 09/19/2016 10:36:35 10/26/19 17 US, pelvi s, trans abdom inal + trans vagin al No observ ation record ed. [facility] Orders [address] [place], [address], 10/25/2016 17:05:58 Result Notes None recorded. Problems No Known Problems Procedures Surgical History Date Name Laterality Status Provider Name and Address Organization Details Recorded Time 017 Most Recent Mammogram completed Sonia Plunkett MA [facility] 09/13/2016 15:36:47 Cholecystectomy completed Sonia mistry MA [facility] 09/13/2016 15:34:17 Orthopedic Surgery completed Sonia roche MA [facility] 09/13/2016 15:35:13 Hernia Repair completed Therese Hackett MD Attn: Accounting,[address] [facility], [place], [address], [place] [facility] 09/13/2016 17:05:24 Imaging Results Imaging Date Name Status LastModified by Organization Details LastModified Time 10/25/2016 US, pelvis, transabdominal + transvaginal completed [facility] Orders [address] [place], [address], 10/25/2016 17:05:58 Procedure Notes None recorded. Medical Equipment None Reported. Allergies Allergen ID Allergen Name Allergen Category Reaction Reaction Severity Criticality Documentation Date Start Date Code Code System Note Provider Name and Address Organization Details Recorded Time 09438 Substance with sulfonami de structure and antibacte rial mechanism of action (substanc e) medicatio n hives mild Not available 09/13/2016 06001 8003 SNOMED Not Available Not Available Not Available 53648 Naprosyn medicatio n hives mild Not available 09/13/2016 49999 2 RxNorm Not Available Not Available Not Available 07794 naproxen medicatio n hives mild Not available 09/13/2016 7258 RxNorm Not Available Not Available Not Available Medications Name Sig Start Date Stop Date Status Note LastModified by Organization Details LastModified Time sertraline 50 mg tablet Take 1 tablet every day by oral route. active Started in 2007 Not Available Not Available Not Available Vitals Date Recorded Body height Body mass index (BMI) Body weight Systolic blood pressure Diastolic blood pressure Provider Name and Address Organization Details Last Updated DateTime 09/13/2016 154.94 cm 34 kg/m2 35349.63 g 130 mm[Hg] 78 mm[Hg] Sonia Plunkett MA [facility] 7 15:44:28 Date Recorded Body height Body mass index (BMI) Body weight Systolic blood pressure Diastolic blood pressure Provider Name and Address Organization Details Last Updated DateTime 10/18/2016 154.94 cm 33.6 kg/m2 46118.44 g 160 mm[Hg] 80 mm[Hg] Idania Tilley MA [facility] 7 11:10:17 Social History Question Answer Notes LastModified by Organizat ion Details LastModified Time Tobacco Smoking Status Current Every Day Smoker Sonia Plunkett MA [facility], [facility] 09/13/2016 15:31:02 Do You Have An Advance Directive? No Information not available 09/13/2016 What Is Your Level Of Alcohol Consumption? Occasional Information not available 09/13/2016 Is Blood Transfusion Acceptable In An Emergency? Yes Information not available 09/13/2016 What Is Your Level Of Caffeine Consumption? Moderate Information not available 09/13/2016 How Much Tobacco Do You Chew? None Information not available 09/13/2016 Are You Currently Employed? No Information not available 09/13/2016 What Type Of Diet Are You Following? REGULAR Information not available 09/13/2016 Which Illicit Or Recreational Drugs Have You Used? 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 With Others Information not available 09/13/2016 How Many Children Do You Have? 6 Information not available 09/13/2016 Performs Monthly Self-breast Exam? No Information no t available 09/13/2016 What Is Your Relationship Status? Information not available 09/13/2016 Seat Belts Used Routinely Yes Information not available 09/13/2016 Are You Sexually Active? No Information not available 09/13/2016 At What Age Did You Start Smoking Tobacco? 11 Information not available 09/13/2016 General Stress Level Low Information not available 09/13/2016 Do You Use Sunscreen Routinely? No Information not available 09/13/2016 How Many Years Have You Smoked Tobacco? 40 Information not available 09/13/2016 Sex: Unknown Functional Status Question Answer Note LastModified by Organization D etails LastModified Time What is your exercise level? Moderate Information not available 09/13/2016 Mental Status None recorded. Family History Relationship Description Onset Age of this Age Resolved Age Notes LastModified by Organization Details LastModified Time Mother Diabetes mellitus Not available 2016 15:28:27 Mother Hypertensive disorder Not available 2016 15:28:44 Father Diabetes mellitus Not available 2016 15:28:50 Father Hypertensive disorder Not available 2016 15:29:12 Father Malignant tumor of stomach 72 Not available 2016 15:29:46 Daughter Diabetes mellitus x2 Not available 2016 15:30:49 Son Diabetes mellitus x4 Not available 2016 15:30:33 Medical History Condition Response Other N High Blood Pressure N Breast Cancer N Thyroid Problems N Kidney or Bladder Problems N GI Problems N Depression N Blood Clots N Lung Disease N Acne N Breast Problem N Eating Disorder N Anemia N Anesthesia Complications N Headaches/Migraines N Anxiety Disorder N Diabetes N Ovarian Cancer N Muscle, Joint, or Bone Problems N Blood Transfusions N Seizures/Epilepsy N Polyps N Infertility N Acid Reflux (GERD) N Cancer N Abuse/Domestic Violence N Asthma N Endometriosis N High Cholesterol N Hepatitis N Liver Disease N Heart Disease N Pre-Eclampsia N Osteoporosis N Gynecological History Statement/Question Response Abnormal Pap N On BCP's at Conception? N STIs/STDs N HPV Vaccine N Most Recent Mammogram 06/01/2016 Age at Menarche 10 Current Control Method Tubal Ligat ion Age at First Child 15 If Post Menopausal, Age at Menopause 38 Sexually Active? N Menses Monthly N Date of Last Pap Smear Sexual Problems? N Obstetrics History GPAL:G 8 P 7 0 1 6 Type Value Full Term 7 Spontaneous 1 Living 6 Total 8 Past Encounters Encounter ID Performer Location Encounter Start Date Encounter Closed Date Diagnosis/Indication Diagnosis SNOMED-CT Code Diagnosis ICD10 Code Diagnosis Note [id number] MD Le [place]linson (FORENSIC COMPUTER EXAMINER) [address] [place] [phone] 09/13/2016 14:58:34 09/13/2016 16:34:14 Gynecologic examination 54128342 Z01.411 Screening mammography 24 919178 Z12.31 Pain in pelvis 02846077 R10.2 Counselled about it.Advised patient if getting worse to go to ER Proteinuria 86963757 R80 .9 pcp referral Cystocele 626997207 N81. 10 Counselled about it. Denies any urinary symptoms. Counselled about kegel excercises and informatio n given to patient. Venereal d isease screening 356350797 Z11.3 Patient refused Obese 887218942 E66.9 counseled about weight loss, diet and excercise. Refused breakfast host consult [id number] MD Le Tomlinson (FORENSIC COMPUTER EXAMINER) [address] [place] [phone] 10/18/2016 10:57:10 10/18/2016 15:56:27 Pain in pelvis 64358162 R10.2 Counselled about it. Possible from cystocele with stress incontinen Kaylee/W patient ultrasound report which is normal.Adv ised patient if getting worse to go to ER Proteinuria 94650202 R80 .[address] Female str ess incontinence 38124680 N39.3 counseled about kegel exercises and gave informatio n on them. Health Concerns Section Related Observation LastModified by Organization Detai ls LastModified Time None Recorded Concern Status LastModified by Organization Details LastModified Time None Recorded Advance Directives Directive N: Payers Encounter Date Sequence Insurance Name Policy Number Policy Mark Covered Member ID Mark Member ID Guarantor Name 09/13/2016 1 [place] Frances Lazo [id number] Frances Lazo 10/18/2016 1 [place] Frances Lazo [id number] Frances Lazo Notes Date Note Type Note Provider Name and Address Organization Details Recorded Time 09/13/2016 text/html Annual GYNReport ed bypatient.History: c/o b/l pelvic pain since years worsening recently. Intermittent. . Denies radiation. Nothing makes it better or worse. Denies associated symptoms. Menstrual cycle:Menopausal Urinary symptoms:No hematuria; No incontinence Vulva:No genital lesion Vagina:Normal vaginal discharge Breast:No breast pain; No breast lump; No nipple discharge Current Contraception:Tuba l ligation Sexual complaints:No sexual complaints; No pain during intercourse; Normal libido Menopausal Symptoms:No menopausal symptoms; Normal vaginal lubrication Psychological symptoms:No depression; No anxiety; No PMDD Preventive measures:Encourage self breast examination; Encourage regular exercise; Encourage no tobacco use; Encourage regular mammograms starting age 40; Needs to schedule mammogram; also counseled about calcium intake and advised to start over the counter calcium treatment. c/o b/l pelvic pain since years worsening recently. Intermittent. . Denies radiation. Nothing makes it better or worse. Denies associated symptoms. Therese Hackett MD Attn: Accounting,[address] [place], [address], [place] [facility] 09/13/2016 17:07:36 10/18/2016 text/html Came for follow up on ultrasound. She say she still have pelvic pain and its minimal and bearable. Therese Hackett MD Attn: Accounting,[address] [facility], [place], [address], [place] [facility] 10/18/2016 11:55:06 OBGyn Episode Ob Episode Information Episode Created Date Number of Fetuses Patient Bloodtype Patient rh Status Prepregnancy Weight lbs Domestic Partner Domestic Partner Phone Father Name Sky Cap Status 09/14/19 17 1 DELETED Shivam Calculation Initial Shivam Date Initial Exam Date Initial Exam Provider Initial Ultrasound Date Last Menstrual Period Date Ultra Sound Weeks Gestation 0 Eighteen To Twenty Week Shivam Update Ultra Sound Date Fundal Height At Umbil Quickening Date Ultra Sound Latest Weeks Gestation Final Shivam Confirmed By Final Shivam Confirmed Date Final Shivam Date Ultra Sound Latest Days Gestation 0 0 Menstrual History Last Menstrual Date Menses Monthly On Bcp Conception Prior Menses Frequency Hcg Plus Date Menarche Onset Age Delivery Information Delivery Date Delivery Type Labor Anesthesia Weeks Gestation Incision Type Labor Labor Length Hrs Delivered By Post Complications Tubal Sterilization Discharge Date Comments 8 None true Pt wasn' t sure if boy or girl Discharge Information Feeding Method Contraceptive Method Maternal HG B and HCT Levels Ob Episode Information Episode Created Date Number of Fetuses Patient Bloodtype Patient rh Status Prepregnancy Weight lbs Domestic Partner Domestic Partner Phone Father Name Sky Cap Status 09/14/19 17 1 CLOSED Fetus Data First Name Last Name Admitted to NICU Weight (g) Sex Living Outcome Pediatric Complications Fetus ID Race Codes Race Delivery Type 3345.24 1 F Full Term [id number] Only Shivam Calculation Initial Shivam Date Initial Exam Date Initial Exam Provider Initial Ultrasound Date Last Menstrual Period Date Ultra Sound Weeks Gestation 0 Eighteen To Twenty Week Shivam Update Ultra Sound Date Fundal Height At Umbil Quickening Date Ultra Sound Latest Weeks Gestation Final Shivam Confirmed By Final Shivam Confirmed Date Final Shivam Date Ultra Sound Latest Days Gestation 0 0 Menstrual History Last Menstrual Date Menses Monthly On Bcp Conception Prior Menses Frequency Hcg Plus Date Menarche Onset Age Delivery Information Delivery Date Delivery Type Labor Anesthesia Weeks Gestation Incision Type Labor Labor Length Hrs Delivered By Post Complications Tubal Sterilization Discharge Date Comments 7 General 40 false 3 Discharge Information Feeding Method Contraceptive Method Maternal HG B and HCT Levels Ob Episode Information Episode Created Date Number of Fetuses Patient Bloodtype Patient rh Status Prepregnancy Weight lbs Domestic Partner Domestic Partner Phone Father Name Sky Cap Status 09/14/19 17 1 CLOSED Fetus Data First Name Last Name Admitted to NICU Weight (g) Sex Living Outcome Pediatric Complications Fetus ID Race Codes Race Delivery Type F Demise [id number] Only Shivam Calculation Initial Shivam Date Initial Exam Date Initial Exam Provider Initial Ultrasound Date Last Menstrual Period Date Ultra Sound Weeks Gestation 0 Eighteen To Twenty Week Shivam Update Ultra Sound Date Fundal Height At Umbil Quickening Date Ultra Sound Latest Weeks Gestation Final Shivam Confirmed By Final Shivam Confirmed Date Final Shivam Date Ultra Sound Latest Days Gestation 0 0 Menstrual History Last Menstrual Date Menses Monthly On Bcp Conception Prior Menses Frequency Hcg Plus Date Menarche Onset Age Delivery Information Delivery Date Delivery Type Labor Anesthesia Weeks Gestation Incision Type Labor Labor Length Hrs Delivered By Post Complications Tubal Sterilization Discharge Date Comments 8 Regional-Sp inal 40 true Baby still born Discharge Information Feeding Method Contraceptive Method Maternal HG B and HCT Levels Ob Episode Information Episode Created Date Number of Fetuses Patient Bloodtype Patient rh Status Prepregnancy Weight lbs Domestic Partner Domestic Partner Phone Father Name Sky Cap Status 09/14/19 17 1 CLOSED Fetus Data First Name Last Name Admitted to NICU Weight (g) Sex Living Outcome Pediatric Complications Fetus ID Race Codes Race Delivery Type 3685.43 5 M Full Term 81432 Vaginal Shivam Calculation Initial Shivam Date Initial Exam Date Initial Exam Provider Initial Ultrasound Date Last Menstrual Period Date Ultra Sound Weeks Gestation 0 Eighteen To Twenty Week Shivam Update Ultra Sound Date Fundal Height At Umbil Quickening Date Ultra Sound Latest Weeks Gestation Final Shivam Confirmed By Final Shivam Confirmed Date Final Shivam Date Ultra Sound Latest Days Gestation 0 0 Menstrual History Last Menstrual Date Menses Monthly On Bcp Conception Prior Menses Frequency Hcg Plus Date Menarche Onset Age Delivery Information Delivery Date Delivery Type Labor Anesthesia Weeks Gestation Incision Type Labor Labor Length Hrs Delivered By Post Complications Tubal Sterilization Discharge Date Comments 2 General 40 false 48 Discharge Information Feeding Method Contraceptive Method Maternal HG B and HCT Levels Ob Episode Information Episode Created Date Number of Fetuses Patient Bloodtype Patient rh Status Prepregnancy Weight lbs Domestic Partner Domestic Partner Phone Father Name Sky Cap Status 09/14/19 17 1 CLOSED Fetus Data First Name Last Name Admitted to NICU Weight (g) Sex Living Outcome Pediatric Complications Fetus ID Race Codes Race Delivery Type 2778.25 1 F Prematur e 71050 Vaginal Shivam Calculation Initial Shivam Date Initial Exam Date Initial Exam Provider Initial Ultrasound Date Last Menstrual Period Date Ultra Sound Weeks Gestation 0 Eighteen To Twenty Week Shivam Update Ultra Sound Date Fundal Height At Umbil Quickening Date Ultra Sound Latest Weeks Gestation Final Shivam Confirmed By Final Shivam Confirmed Date Final Shivam Date Ultra Sound Latest Days Gestation 0 0 Menstrual History Last Menstrual Date Menses Monthly On Bcp Conception Prior Menses Frequency Hcg Plus Date Menarche Onset Age Delivery Information Delivery Date Delivery Type Labor Anesthesia Weeks Gestation Incision Type Labor Labor Length Hrs Delivered By Post Complications Tubal Sterilization Discharge Date Comments 1 General 35 true Pt sta stefany that she strated Hemerging Discharge Information Feeding Method Contraceptive Method Maternal HG B and HCT Levels Ob Episode Information Episode Created Date Number of Fetuses Patient Bloodtype Patient rh Status Prepregnancy Weight lbs Domestic Partner Domestic Partner Phone Father Name Sky Cap Status 09/14/19 17 1 CLOSED Fetus Data First Name Last Name Admitted to NICU Weight (g) Sex Living Outcome Pediatric Complications Fetus ID Race Codes Race Delivery Type , Induced [id number] Only Shivam Calculation Initial Shivam Date Initial Exam Date Initial Exam Provider Initial Ultrasound Date Last Menstrual Period Date Ultra Sound Weeks Gestation 0 Eighteen To Twenty Week Shivam Update Ultra Sound Date Fundal Height At Umbil Quickening Date Ultra Sound Latest Weeks Gestation Final Shivam Confirmed By Final Shivam Confirmed Date Final Shivam Date Ultra Sound Latest Days Gestation 0 0 Menstrual History Last Menstrual Date Menses Monthly On Bcp Conception Prior Menses Frequency Hcg Plus Date Menarche Onset Age Delivery Information Delivery Date Delivery Type Labor Anesthesia Weeks Gestation Incision Type Labor Labor Length Hrs Delivered By Post Complications Tubal Sterilization Discharge Date Comments 8 Regional- ina Discharge Information Feeding Method Contraceptive Method Maternal HG B and HCT Levels Ob Episode Information Episode Created Date Number of Fetuses Patient Bloodtype Patient rh Status Prepregnancy Weight lbs Domestic Partner Domestic Partner Phone Father Name Sky Cap Status 09/14/19 17 1 CLOSED Fetus Data First Name Last Name Admitted to NICU Weight (g) Sex Living Outcome Pediatric Complications Fetus ID Race Codes Race Delivery Type 3373.36 3704 M Full Term 20303 Vaginal Shivam Calculation Initial Shivam Date Initial Exam Date Initial Exam Provider Initial Ultrasound Date Last Menstrual Period Date Ultra Sound Weeks Gestation 0 Eighteen To Twenty Week Shivam Update Ultra Sound Date Fundal Height At Umbil Quickening Date Ultra Sound Latest Weeks Gestation Final Shivam Confirmed By Final Shivam Confirmed Date Final Shivam Date Ultra Sound Latest Days Gestation 0 0 Menstrual History Last Menstrual Date Menses Monthly On Bcp Conception Prior Menses Frequency Hcg Plus Date Menarche Onset Age Delivery Information Delivery Date Delivery Type Labor Anesthesia Weeks Gestation Incision Type Labor Labor Length Hrs Delivered By Post Complications Tubal Sterilization Discharge Date Comments 6 General 40 false 1 Discharge Information Feeding Method Contraceptive Method Maternal HG B and HCT Levels Ob Episode Information Episode Created Date Number of Fetuses Patient Bloodtype Patient rh Status Prepregnancy Weight lbs Domestic Partner Domestic Partner Phone Father Name Sky Cap Status 09/14/19 17 1 CLOSED Fetus Data First Name Last Name Admitted to NICU Weight (g) Sex Living Outcome Pediatric Complications Fetus ID Race Codes Race Delivery Type 3231.84 3 M Full Term [id number] Only Shivam Calculation Initial Shivam Date Initial Exam Date Initial Exam Provider Initial Ultrasound Date Last Menstrual Period Date Ultra Sound Weeks Gestation 0 Eighteen To Twenty Week Shivam Update Ultra Sound Date Fundal Height At Umbil Quickening Date Ultra Sound Latest Weeks Gestation Final Shivam Confirmed By Final Shivam Confirmed Date Final Shivam Date Ultra Sound Latest Days Gestation 0 0 Menstrual History Last Menstrual Date Menses Monthly On Bcp Conception Prior Menses Frequency Hcg Plus Date Menarche Onset Age Delivery Information Delivery Date Delivery Type Labor Anesthesia Weeks Gestation Incision Type Labor Labor Length Hrs Delivered By Post Complications Tubal Sterilization Discharge Date Comments 1 None 40 false 2 Discharge Information Feeding Method Contraceptive Method Maternal HG B and HCT Levels Ob Episode Information Episode Created Date Number of Fetuses Patient Bloodtype Patient rh Status Prepregnancy Weight lbs Domestic Partner Domestic Partner Phone Father Name Sky Cap Status 09/14/19 17 1 CLOSED Fetus Data First Name Last Name Admitted to NICU Weight (g) Sex Living Outcome Pediatric Complications Fetus ID Race Codes Race Delivery Type 3231.84 3 M Full Term 15259 Vaginal Shivam Calculation Initial Shivam Date Initial Exam Date Initial Exam Provider Initial Ultrasound Date Last Menstrual Period Date Ultra Sound Weeks Gestation 0 Eighteen To Twenty Week Shivam Update Ultra Sound Date Fundal Height At Umbil Quickening Date Ultra Sound Latest Weeks Gestation Final Shivam Confirmed By Final Shivam Confirmed Date Final Shivam Date Ultra Sound Latest Days Gestation 0 0 Menstrual History Last Menstrual Date Menses Monthly On Bcp Conception Prior Menses Frequency Hcg Plus Date Menarche Onset Age Delivery Information Delivery Date Delivery Type Labor Anesthesia Weeks Gestation Incision Type Labor Labor Length Hrs Delivered By Post Complications Tubal Sterilization Discharge Date Comments 3 General 40 false 24 Discharge Information Feeding Method Contraceptive Method Maternal HG B and HCT Levels
--- OUTSIDE RECORDS SUMMARY | 2024-06-01 13:02 | XMS_ITS | CONTINUITY OF CARE DOCUMENT ---
Author Name reina huang Address Unknown Organization [facility] Address [id number] [place] [address] [address] [place] [address] Phone [phone] Care Team Providers Care Ore Buyer Name Role Phone Min Blount MD Unavailable [phone] BERNICE SCHMID MD Unavailable [phone] BERNICE SCHMID MD Unavailable [phone] PROBLEMS Condition Status Date Provider Notes TOBACCO ABUSE active Marian Christiansen ALLERGIES Allergy Name Onset Date Reaction Criticality Status NAPROXEN High Criticality active SULFA High Criticality active INSURANCE PROVIDERS Payer name Policy type / Coverage type [place] red libertarian ID AARP MEDICARE ADVANTAGE HMO-POS HMO [id number]
--- OUTSIDE RECORDS SUMMARY | 2024-06-01 13:02 | XMS_ITS | Referral Summary ---
Author Organization [facility] Address [address] [place] [address] Care Team Providers Care Steel Cutter Name Role Phone Adan Caldera MD Primary Care Provider [phone] Encounters Date Type Department Care Team Description 05/26/2024 9:15 AM CDT Office Visit [facility] [address] [place] [phone] Adan Caldera MD Type 2 diabetes mellitus without complication, without long-term current use of insulin (HCC) (Primary Dx); Mixed hyperlipidemia; Hypothyroidism, unspecified type; Tobacco use; Coronary artery disease involving three affiliated coronary artery 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 Vascular Lab at the [facility] Advanced [address]th [place] [address] [place] [address] Personal history of PE (pulmonary embolism) 05/05/2024 Telephone [facility] 1 [place] [address] 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 RN 05/04/2024 Orders Only [facility] 1 [place] [address] 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 RN Acute pulmonary embolism without acute cor pulmonale, unspecified pulmonary embolism type (HCC) (Primary Dx) 05/03/2024 1:00 PM NETWORK PRICING CONSULTANT Office Visit [facility] Radiology, Interventional Radiology [address] [facility] [address] [place] [phone] Jumana Parker MD S/P insertion of IVC (inferior vena caval) filter (Primary Dx); Other chronic pulmonary embolism without acute cor pulmonale (HCC) 04/19/2024 Telephone [facility] 1 [place] [address] 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 RN 04/19/2024 10:00 AM NETWORK PRICING CONSULTANT [facility] [address] [facility] [address] [place] [address] Hematoma of groin, subsequent encounter 04/19/2024 2:30 PM NETWORK PRICING CONSULTANT Office Visit 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 (Primary Dx); Mixed hyperlipidemia; Essential hypertension; Elevated left ventricular end-diastolic pressure (LVEDP) 04/16/2024 Telephone [facility] [address] [facility] [address] [place] [address] Idania Han RN APPT CONFIRMATION 04/13/2024 [facility] [address] [facility] [address] [place] [phone] Ida Chawla MA 04/09/2024 11:55 AM NETWORK PRICING CONSULTANT Lab [facility] [address] [place] [address] Type 2 diabetes mellitus without complication, without long-term current use of insulin (HCC) 04/08/2024 11:03 AM NETWORK PRICING CONSULTANT - 04/08/2024 11:59 PM NETWORK PRICING CONSULTANT Hospital Encounter [facility] [address] [place] [address] Acute pulmonary embolism without acute cor pulmonale, unspecified pulmonary embolism type (HCC) Discharge Disposition: Discharge to home or self care 04/08/2024 11:47 AM NETWORK PRICING CONSULTANT - 04/08/2024 11:59 PM NETWORK PRICING CONSULTANT Hospital Encounter [facility] PFT Lab [address] [place] [address] [address] [place] [address] Acute pulmonary embolism without acute cor pulmonale, unspecified pulmonary embolism type (HCC) Discharge Disposition: Discharge to home or self care 04/08/2024 3:00 PM NETWORK PRICING CONSULTANT Office Visit [facility] Pulmonary [address] [place] [address] [address] [place] [address] Fani Huff MD Acute pulmonary embolism without acute cor pulmonale, non occlusive 01/18/24 (HCC) (Primary Dx); GONGORA (dyspnea on exertion); S/P insertion of IVC (inferior vena caval) filter; Former tobacco use; Pulmonary emphysema, unspecified emphysema type (HCC); Personal history of PE (pulmonary embolism) 04/07/2024 [facility] [address] [facility] [place] [address] Ida Chawla MA 04/07/2024 Orders Only [facility] [address] [facility] [place] [address] Ida Chawla MA Type 2 diabetes mellitus without complication, without long-term current use of insulin (HCC) (Primary Dx) 04/06/2024 2:35 PM NETWORK PRICING CONSULTANT Lab [facility] [address] [place] [phone] Type 2 diabetes mellitus without complication, without long-term current use of insulin (HCC); Essential hypertension 04/06/2024 12:30 PM NETWORK PRICING CONSULTANT Office Visit [facility] [address] [place] [address] [address] [place] [address] Adan Caldera MD Type 2 diabetes mellitus without complication, without long-term current use of insulin (HCC) (Primary Dx); Mixed hyperlipidemia; Hypothyroidism, unspecified type; Essential hypertension; Other acute pulmonary embolism without acute cor pulmonale (HCC) 03/23/2024 Orders Only [facility] Scheduling [address] [place] [address] Fani Huff MD Acute pulmonary embolism without acute cor pulmonale, unspecified pulmonary embolism type (HCC) (Primary Dx) 03/12/2024 Orders Only [facility] Pulmonary [address] [place] [address] 8th [place] [address] [place] [phone] Fani Huff MD Acute pulmonary embolism without acute cor pulmonale, unspecified pulmonary embolism type (HCC) (Primary Dx) 03/08/2024 Telephone [facility] [address] [place] [address], [place] [phone] Saira Mcguire NP 03/05/2024 2:21 PM NETWORK PRICING CONSULTANT - 03/05/2024 11:59 PM NETWORK PRICING CONSULTANT Hospital Encounter [facility] [address] [place] [address] Left inguinal pain; Right inguinal pain; S/P IVC filter Discharge Disposition: Discharge to home or self care from Last 3 Months Allergies Active Allergy [...] 3 doses total 90 tablet 05/22/19 24 Active amLODIPine (NORVASC) 2.5 mg tablet Take 1 tablet (2.5 mg total) by mouth daily 30 tablet 11 05/23/19 24 Active aspirin 81 mg enteric coated tablet [...] 04/06/2024 Assessment & Plan (04/11/2024 1:34 PM NETWORK PRICING CONSULTANT): MRSA pna in Jan 2024. Resolved. Other pulmonary embolism without acute cor pulmo nale 04/06/2024 Assessment & Plan (05/26/2024 9:53 AM CDT): To have filter removed shortly. Not on anticoagulation due to bleeding. Assessment & Plan (04/11/2024 1:33 PM NETWORK PRICING CONSULTANT): No indication to resume anticoagulation at this time. Pt did not complete 3 month treatment given GI bleeding. Assessment & Plan (04/06/2024 1:09 PM NETWORK PRICING CONSULTANT): Status post filter. Doing well. Elevated left ventricular end-diastolic pressure (LVEDP) 08/21/2023 Assessment & Plan (04/19/2024 4:15 PM NETWORK PRICING CONSULTANT): LHC from 06/02/23 with elevated LVEDP and [...] consider MRA. Coronary artery disease invo lving three affiliated coronary artery 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 pectoris 05/22/2023 Assessment & Plan (05/26/2024 9:52 AM CDT): No chest pain. Has been doing well. Remains on antiplatelet therapy, statin. Assessment & Plan (04/19/2024 4:15 PM NETWORK PRICING CONSULTANT): CAD s/p PCI of LAD with HI [...] with Dr. Roque regarding stress test vs LHC. ED precautions given to patient. Educated on smoking cessation. Essential hypertension 05/22/2023 Assessment & Plan (05/26/2024 9:53 AM CDT): Blood pressure is under good control. Continue present Rx for target directed therapy Assessment & Plan (04/19/2024 4:15 PM NETWORK PRICING CONSULTANT): Well controlled. Continue amlodipine. Assessment & Plan (04/06/2024 1:10 PM NETWORK PRICING CONSULTANT): BP at target Assessment & Plan (11/24/2023 [...] intervention Tobacco use 03/11/2021 Assessment & Plan (05/26/2024 9:52 AM CDT): Not smoking at this time Assessment & Plan (11/24/2023 11:39 AM CDT): [...] (04/05/2020): A1c doing well Assessment & Plan (05/26/2024 9:51 AM CDT): Blood sugars have remained in the normal or close to normal range. This is acceptable continue present Rx Assessment & Plan (04/06/2024 1:10 PM NETWORK PRICING CONSULTANT): Stable. Assessment & Plan (10/13/2023 3:24 PM CDT): Long discussion today. I truly feel the patient needs insulin. However she is adamantly opposed to insulin at this time. She indicates she will try diet and exercise. Check labs Hyperlipidemia 04/05/2020 Overview (04/05/2020): Eventually will place on statin for now will evaluate abdominal pain check CMP see BC amylase lipase urinalysis Assessment & Plan (05/26/2024 9:51 AM CDT): Doing well labs in the future continue with atorvastatin at this time Assessment & Plan (04/19/2024 4:14 PM NETWORK PRICING CONSULTANT): LDL at goal from labs on 10/13/2023. Continue Atorvastatin 40 mg daily. Assessment & Plan (04/06/2024 1:10 PM NETWORK PRICING CONSULTANT): Stable. Assessment & Plan (11/24/2023 11:38 AM CDT): LDL at goal from labs on 10/13/2023. Continue Atorvastatin 40 mg daily. Assessment & Plan (10/13/2023 3:24 PM CDT): stable Assessment & Plan (08/21/2023 1:10 PM CDT): Continue Atorvastatin 40 mg daily. Assessment & Plan (05/22/2023 9:45 AM CDT): Continue Atorvastatin 40 mg daily. Hypothyroidism 04/05/2020 Overview (04/05/2020): Check labs Assessment & Plan (05/26/2024 9:51 AM CDT): Continue replacement no signs or symptoms of thyroid disease Assessment & Plan (04/06/2024 1:10 PM NETWORK PRICING CONSULTANT): Continue medication. Assessment & Plan (10/13/2023 3:21 PM CDT): Check TSH Assessment & Plan (12/13/2020 9:41 AM CDT): Labs due today Resolved Problems Problem Noted Date Diagnosed Date Resolved Date Tobacco dependence syndrome 04/21/2009 05/26/2024 Social History Tobacco Use Types Packs/Day Years [...] on file Legal Sex Female 12:12 AM NETWORK PRICING CONSULTANT Gender Identity Not on file Sexual Orientation Not on file Last Filed Vital Signs Vital Sign Reading Time Taken Comments Blood Pressure 150/75 05/26/2024 9:17 AM CDT Pulse 78 05/26/2024 9:17 AM CDT Temperature 36.2 C (97.1 F) 04/19/2024 9:00 AM NETWORK PRICING CONSULTANT Respiratory Rate 29 06/02/2023 11:55 AM CDT Oxygen Saturation 97% 04/19/2024 2:21 PM NETWORK PRICING CONSULTANT Inhaled Oxygen Concentration - - Weight 74.4 kg (164 lb) 05/26/2024 9:17 AM CDT Height 152.4 cm (5') 05/26/2024 9:17 AM CDT Body Mass Index 32.03 05/26/2024 9:17 AM CDT Plan of Treatment Scheduled Procedures Name Priority Associated Diagnoses Date/Ti me COLONOSCOPY Encounter for screening colonoscopy COLONOSCOPY Encounter for screening colonoscopy COLONOSCOPY Encounter for screening colonoscopy COLONOSCOPY Encounter for screening colonoscopy COLONOSCOPY Encounter for screening colonoscopy Medical Devices Implanted Type Area Organ Fixer Device Identifier Shelf Expiration Date Model / Serial / Lot Medtronic [employer] X [id number] Resolute [place] 3.5mm 2.1-2.7fr 26mm 140cm Rapid Exchange - [id number] - [id number] Implanted:Qty : 1 on 02/15/2021 by Tyrel Flores MD at [facility] Stent Left: Coronary Medtronic Inc 10/22/2021 [id number] / [id number] 2 Description:LAD Med[employer] X [id number] Resolute [place] 3.5mm 2.1-2.7fr 26mm 140cm Rapid Exchange - [id number] - [id number] Implanted:Qty : 1 on 02/15/2021 by Tyrel Flores MD at [facility] Stent Left: Coronary Medtronic Inc 08/23/2021 [id number] / [id number] 1 Description:LAD Medtronic [employer] X [id number] Resolute [place] 3mm 2.1-2.7fr 22mm 140cm Rapid Exchange Radiopaque - [id number] - [id number] Implanted:Qty : 1 on 02/15/2021 by Tyrel Flores MD at [facility] Stent Left: Coronary Medtronic Inc 12/08/2023 [id number] / [id number] / [id number] Description:LAD [employer] Angio-Seal Vip 6fr Closere Device [id number] - [id number] - [id number] Implanted:Qty : 1 on 06/02/2023 by Tyrel Flores MD at [facility] Vascular Closure Device [employer] 01/01/2024 [id number] / [id number] / [id number] Procedures Procedure Name Priority Date/Time Associated Diagnosis Comments SCAN - LABS 05/11/2024 6:04 PM CDT US VEIN DUPLEX LOWER EXTREMITY BILATERAL COMPLETE Schedule Routine, Read Routine (OP Routine) 05/10/2024 10:08 AM CDT Personal history of PE (pulmonary embolism) PROTEIN ELECTROPHORESIS, WITH REFLEX, SERUM Routine 04/09/2024 11:15 AM NETWORK PRICING CONSULTANT Type 2 diabetes mellitus without complication, without long-term current use of insulin (HCC) PULMONARY FUNCTION TEST (PFT) Routine 04/08/2024 12:59 PM NETWORK PRICING CONSULTANT Acute pulmonary embolism without acute cor pulmonale, unspecified pulmonary embolism type (HCC) XR CHEST PA LATERAL 2 VIEWS Schedule Routine, Read Routine (OP Routine) 04/08/2024 11:13 AM NETWORK PRICING CONSULTANT Acute pulmonary embolism without acute cor pulmonale, unspecified pulmonary embolism type (HCC) EGFR Routine 04/06/2024 1:23 PM NETWORK PRICING CONSULTANT Type 2 diabetes mellitus without complication, without long-term current use of insulin (HCC) Essential hypertension COMPREHENSIVE METABOLIC PANEL Routine 04/06/2024 1:23 PM NETWORK PRICING CONSULTANT Type 2 diabetes mellitus without complication, without long-term current use of insulin (HCC) Essential hypertension POCT HEMOGLOBIN A1C Routine 04/06/2024 12:54 PM NETWORK PRICING CONSULTANT Type 2 diabetes mellitus without complication, without long-term current use of insulin (HCC) US GROIN PSEUDO DUPLEX LEFT Schedule Routine, Read Routine (OP Routine) 03/05/2024 2:56 PM NETWORK PRICING CONSULTANT Left inguinal pain Right inguinal pain S/P IVC filter US GROIN PSEUDO DUPLEX RIGHT Schedule Routine, Read Routine (OP Routine) 03/05/2024 2:56 PM NETWORK PRICING CONSULTANT Left inguinal pain Right inguinal pain S/P IVC filter HEPATITIS C ANTIBODY Routine 01/15/2024 2:49 PM NETWORK PRICING CONSULTANT Type 2 diabetes mellitus without complication, without long-term current use of insulin (HCC) Essential hypertension Coronary artery disease involving three affiliated coronary artery 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 pectoris Hypothyroidism, unspecified type Mixed hyperlipidemia ALBUMIN CREATININE RATIO, URINE Routine 01/15/2024 2:49 PM NETWORK PRICING CONSULTANT Type 2 diabetes mellitus without complication, without long-term current use of insulin (HCC) Essential hypertension Coronary artery disease involving three affiliated coronary artery 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 pectoris Hypothyroidism, unspecified type Mixed hyperlipidemia POCT LIPID PANEL Routine 10/13/2023 2:49 PM CDT Hyperlipidemia, unspecified hyperlipidemia type SCREENING MAMMOGRAM BILATERAL W KJ Schedule Routine, Read Routine (OP Routine) 07/05/2020 12:56 PM CDT Visit for screening mammogram from Last 3 Months or Most Recently Relevant to Health Maintenance Results * SCAN - LABS (05/11/2024 6:04 PM CDT) us Adan Caldera MD Final Result * US Vein Duplex Lower Extremity Bilateral Complete (05/10/2024 10:08 AM CDT) Anatomical Region Laterality Modality Vascular Bilateral Ultrasound 05/10/2024 9:48 AM CDT Narrative 05/10/2024 2:19 PM CDT [facility] - Department of Vascular Surgery, Vascular Laboratory [address] [place] [address] Lower Extremity Venous Ultrasound Report Patient Name: DEBBIE MEIER : 1955 (68y 4m) Study Date: 05/10/2024 9:48:22 AM Gender: F Tech: [place] Location: [facility] Ref Provider: JUMANA PARKER Quality: [...] Personal history of pulmonary embolism. FINDINGS: Performing Automatic Print Developer: Gabbi Sutton RVT. Bilateral: Venous Doppler signals [...] Signed By: Adan Argueta MD [facility] [phone] 05/10/2024 1:30:59 PM CDT Procedure Note Adan Argueta MD - 05/10/[address]24 [facility] - Department of Vascular Surgery,Vascular Laboratory [address] [place] [address] Lower Extremity Venous Ultrasound Report Patient Name: DEBBIE MEIER : 1955 (68y 4m) Study Date: 05/10/2024 9:48:22 AM Gender: F Tech: [place] Location: [facility] Ref Provider: JUMANA PARKER Quality: [...] Personal history of pulmonary embolism. FINDINGS: Performing Automatic Print Developer: Gabbi Sutton RVT. Bilateral: Venous Doppler signals [...] Signed By: Adan Argueta MD [facility] [phone] 05/10/2024 1:30:59 PM CDT us Jumana Parker MD IMG US PROCEDURES Final Re sult * (ABNORMAL) Protein electrophoresis with reflex, serum with interpretation (04/09/2024 11:15 AM NETWORK PRICING CONSULTANT) Protein, sr 8.9(H) 6.2 - 8.2 g/dL Albumin 4.7 3.2 - 5.0 g/dL [facility] Alpha-1 globulin 0.3 0.2 - 0.4 g/dL [facility] Alpha-2 globulin 1.1(H) 0.5 - 1.0 g/dL [facility] Beta-1 globulin 0.6 0.3 - 0.6 g/dL [facility] Beta-2 globulin 0.5 0.2 - 0.6 g/dL [facility] Gamma globulin 1.7 0.5 - 1.7 g/dL [facility] SPEP interp Please see comment [facility] Comment: No apparent monoclonal peak Reviewed and signed by Luis Infante MD 04/12/2024 Blood 04/09/2024 11:1 5 AM NETWORK PRICING CONSULTANT 04/09/2024 11:37 AM NETWORK PRICING CONSULTANT us Adan Caldera MD LAB BLOOD ORDERABLES Final Re sult [facility] [address] [facility] [place] [address] * Pulmonary Function Test - (04/08/2024 12:59 PM NETWORK PRICING CONSULTANT) FVC PRE 2.19 L [facility] FVC %PRE PRED 94 % [facility] FVC POST 2.37 L [facility] FVC %POST PRED 102 % [facility] FEV1 PRE 1.53 L [facility] FEV1 %PRE PRED 83 % [facility] FEV1 POST 1.63 L [facility] FEV1 %POST PRED 89 % [facility] FEV1/FVC PRE 69.9 % [facility] FEV1/FVC POST 68.9 % [facility] FRC PL PRE 2.72 L [facility] FRC PL %PRE PRED 107 % [facility] RV PRE 2.15 L [facility] RV %PRE PRED 107 % [facility] TLC PRE 4.34 L [facility] TLC %PRE PRED 97 % [facility] DLCO PRE 8.1 ml/min/mmH g [facility] DLCO %PRE PRED 47 % [facility] FIO2 % 21.00 % [facility] PaO2 88.0 mmHg [facility] PaCO2 34.0 mmHg [facility] pH 7.45 [facility] A-aDO2 POC 19.0 mmHg [facility] METHGB % 0.6 % [facility] COHb POC 1.8 % [facility] HCO3 23.6 mEq/L [facility] Anatomical Region Laterality Modality PFT 04/08/2024 12:0 3 PM NETWORK PRICING CONSULTANT Narrative 04/09/2024 6:42 PM NETWORK PRICING CONSULTANT Table formatting from the original result was not included. [facility] Division of Pulmonary & Critical Care Medicine [address] [place] [address]; [place] [facility]; [place] [id number]; [phone] Pulmonary Function Laboratory Pulmonary Stress Test Simple/Oxygen [...] Work [distance (m) x body wt (kg)]: 73688 kg.m (normal >60,000kg.m) Oxygen required to maintain [...] with the written final report. PFT performed at:->[facility] Adult PFT Lab- [facility] Procedure:->Spirometry Procedure:->Spirometry with Bronchodilator Procedure:->Oxygen [...] and %HbO2 is age dependent. However, the [facility] Pulmonary Function Laboratory defines hypoxemia as a PaO2 <56 mm Hg or a %HbO2 <89%. Starting on March of 2024 the [facility] Pulmonary Function Laboratory utilizes race neutral GLI Global normative equations. Fani Huff MD PFT ORDERABLES Final R esult * XR Chest Pa Lateral 2 Views (04/08/2024 11:13 AM NETWORK PRICING CONSULTANT) Anatomical Region Laterality Modality Body, Chest N/A Computed Radiogr aphy 04/08/2024 11:1 9 AM NETWORK PRICING CONSULTANT Impressions 04/08/2024 11:19 AM NETWORK PRICING CONSULTANT Comparison is made to prior chest radiograph 12/13/2020. Heart size is normal. Lungs are clear. Surgical clips noted within the upper abdomen. There is an inferior vena cava filter. Electronically signed by: Jonas Hernadez M.D. Narrative 04/08/2024 11:19 AM NETWORK PRICING CONSULTANT EXAMINATION: 2 view chest radiograph Procedure Note [...] Final Result * eGFR (04/06/2024 1:23 PM NETWORK PRICING CONSULTANT) eGFR 82 >=60 mL/min/1. 73 m2 Comment: [...] last reviewed 2021. Blood 04/06/2024 1:23 PM NETWORK PRICING CONSULTANT 04/06/2024 1:51 PM NETWORK PRICING CONSULTANT us Adan Caldera MD LAB BLOOD ORDERABLES Final Re sult [facility] Department [place] [address] * (ABNORMAL) Comprehensive metabolic panel (04/06/2024 1:23 PM NETWORK PRICING CONSULTANT) Pathologist [facility] Sodium 139 135 - 145 mmol/L Potassium, pl 4.1 3.3 - 4.9 mmol/L [facility] Chloride 98 97 - 110 mmol/L [facility] CO2 25 22 - 32 mmol/L [facility] Anion gap 16(H) 2 - 15 mmol/L [facility] BUN 28(H) 6 - 25 mg/dL [facility] Creatinine 0.78 0.60 - 1.10 mg/dL [facility] Glucose 260(H) 70 - 199 mg/dL [facility] Comment: Interpretive Data Fasting glucose [...] 2022. Calcium 9.5 8.5 - 10.3 mg/dL [facility] Bilirubin, total 0.6 0.1 - 1.2 mg/dL [facility] Protein, pl 8.6(H) 6.5 - 8.5 g/dL [facility] Albumin 4.5 3.5 - 5.0 g/dL [facility] Alk phos 104 40 - 130 Units/L [facility] ALT 20 7 - 45 Units/L [facility] AST 25 10 - 45 Units/L [facility] Blood 04/06/2024 1:23 PM NETWORK PRICING CONSULTANT 04/06/2024 1:43 PM NETWORK PRICING CONSULTANT us Adan Caldera MD LAB BLOOD ORDERABLES Final Re sult [facility] Department [place] [address] * (ABNORMAL) POCT hemoglobin A1c (04/06/2024 12:54 PM NETWORK PRICING CONSULTANT) Hemoglobin A1C, POC 6.9 4.0 - 5.6 % Capillary blood 04/06/2024 1 2:54 PM NETWORK PRICING CONSULTANT us Adan Caldera MD POINT OF CARE TEST ORDERABLES Final Result * US Groin Pseudo Right (03/05/2024 2:56 PM NETWORK PRICING CONSULTANT) Anatomical Region Laterality Modality Vascular Right Ultrasound 03/05/2024 3:43 PM NETWORK PRICING CONSULTANT Impressions 03/05/2024 3:43 PM NETWORK PRICING CONSULTANT 1. No pseudoaneurysm or arteriovenous fistula in the right or left groin. 2. There is a left groin hematoma. Electronically signed by: Vickie Kramer M.D. Narrative 03/05/2024 3:43 PM NETWORK PRICING CONSULTANT EXAMINATION: LIMITED right and left GROIN SONOGRAM [...] by: Vickie Kramer M.D. us Saira Mcguire STORAGE ADMINISTRATOR IMG US PROCEDURES Final Resul t * US Groin Pseudo Duplex Left (03/05/2024 2:56 PM NETWORK PRICING CONSULTANT) Anatomical Region Laterality Modality Vascular Left Ultrasound 03/05/2024 3:43 PM NETWORK PRICING CONSULTANT Impressions 03/05/2024 3:43 PM NETWORK PRICING CONSULTANT 1. No pseudoaneurysm or arteriovenous fistula in the right or left groin. 2. There is a left groin hematoma. Electronically signed by: Vickie Kramer M.D. Narrative 03/05/2024 3:43 PM NETWORK PRICING CONSULTANT EXAMINATION: LIMITED right and left GROIN SONOGRAM [...] hematoma. Electronically signed by: Vickie Kramer M.D. Saira Mcguire NP IMG US PROCEDURES Final Resul t * Hepatitis C antibody Blood (01/15/2024 2:49 PM NETWORK PRICING CONSULTANT) Hep C Ab Nonreactive Nonreactive Comment:Antibodies to HCV no t detected. Does NOT exclude the possibility of recent exposure to HCV. Current interpretive data was last revised on 21 Blood 01/15/2024 2:49 PM NETWORK PRICING CONSULTANT 01/15/2024 3:18 PM NETWORK PRICING CONSULTANT Adan Caldera MD LAB MICROBIOLOGY - GENERAL OR DERABLES Final Result Performing Organization Address [facility] de Phone Number [facility] [place] [address] * (ABNORMAL) Albumin Creatinine Ratio, Urine (01/15/2024 2:49 PM NETWORK PRICING CONSULTANT) Albumin Ur 13.4 mg/L Comment: Interpretive Data No reference range established. Current interpretive data was last revised 2018. Creatinine Ur 42.5 mg/dL [facility] Comment: Interpretive Data No reference range established. Current interpretive data was last revised 2018. Albumin Creatinine Ratio, Ur 32(H) 1 - 29 mg/g [facility] Urine 01/15/2024 2:49 PM NETWORK PRICING CONSULTANT 01/15/2024 3:34 PM NETWORK PRICING CONSULTANT us Adan Caldera MD LAB URINE ORDERABLES Final Re sult Performing Organization Address [facility] de Phone Number [facility] [place] [address] * POCT lipid panel (10/13/2023 2:49 PM CDT) Cholesterol, POC 137 mg/dL HDL, POC 46 mg/dL Triglycerides, POC 218 mg/dL LDL Cholesterol POC 48 mg/dL Chol/HDL Ratio, POC 3.0 Non-HDL Cholesterol, POC 91 mg/dL Cholesterol Total, POC 137 mg/dL Capillary blood 10/13/2023 2 :49 PM CDT us Adan Caldera MD POINT OF CARE [...] Most Recently Relevant to Health Maintenance Insurance [employer] [employer] [place] [address] [facility] MEDICARE ADVANTAGE [facility] [place] [address] Advance Directives For more information, please contact: [phone] * Full Code (Latest Code Status on File) Date Activated Date Inactivated Comments 02/15/2021 2:51 PM 02/15/2021 10:17 PM Care Teams Steel Cutter Relationship Specialty Start Date End Date Adan Caldera MD [id number] [place] [address] PCP - General 06/19/17
--- OUTSIDE RECORDS SUMMARY | 2024-06-01 13:02 | XMS_ITS | Clinical Summary ---
Author Organization [facility] Address [address] [place] [address] Care Team Providers Care Airline Managerial Supervisor Name Role Phone Adan Caldera MD Primary Care Provider [phone] Allergies Active Allergy Reactions Criticality Noted Date [...] 04/06/2024 Assessment & Plan (04/11/2024 1:34 PM SECRETARY OF POLICE): MRSA pna in Jan 2024. Resolved. Other pulmonary embolism without acute cor pulmo nale 04/06/2024 Assessment & Plan (05/26/2024 9:53 AM CDT): To have filter removed shortly. Not on anticoagulation due to bleeding. Assessment & Plan (04/11/2024 1:33 PM SECRETARY OF POLICE): No indication to resume anticoagulation at this time. Pt did not complete 3 month treatment given GI bleeding. Assessment & Plan (04/06/2024 1:09 PM SECRETARY OF POLICE): Status post filter. Doing well. Elevated left ventricular end-diastolic pressure (LVEDP) 08/21/2023 Assessment & Plan (04/19/2024 4:15 PM SECRETARY OF POLICE): LHC from 06/02/23 with elevated LVEDP and [...] consider MRA. Coronary artery disease invo lving citizen pot[place]atomi coronary artery of citizen pot[place]i heart without angina pectoris 05/22/2023 Assessment & Plan (05/26/2024 9:52 AM CDT): No chest pain. Has been doing well. Remains on antiplatelet therapy, statin. Assessment & Plan (04/19/2024 4:15 PM SECRETARY OF POLICE): CAD s/p PCI of LAD with HI [...] therapy Assessment & Plan (04/19/2024 4:15 PM SECRETARY OF POLICE): Well controlled. Continue amlodipine. Assessment & Plan (04/06/2024 1:10 PM SECRETARY OF POLICE): BP at target Assessment & Plan (11/24/2023 [...] Rx Assessment & Plan (04/06/2024 1:10 PM SECRETARY OF POLICE): Stable. Assessment & Plan (10/13/2023 3:24 PM [...] time Assessment & Plan (04/19/2024 4:14 PM SECRETARY OF POLICE): LDL at goal from labs on 10/13/2023. Continue Atorvastatin 40 mg daily. Assessment & Plan (04/06/2024 1:10 PM SECRETARY OF POLICE): Stable. Assessment & Plan (11/24/2023 11:38 AM [...] disease Assessment & Plan (04/06/2024 1:10 PM SECRETARY OF POLICE): Continue medication. Assessment & Plan (10/13/2023 3:21 PM CDT): Check TSH Assessment & Plan (12/13/2020 9:41 AM CDT): Labs due today Resolved Problems Problem Noted Date Diagnosed Date Resolved Date Tobacco dependence syndrome 04/21/2009 05/26/2024 Encounters Date Type Department Care Team Description 05/26/2024 9:15 AM CDT Office Visit [facility] [address] [place] [address] Adan Caldera MD Type 2 diabetes mellitus without complication, without long-term current use of insulin (HCC) (Primary Dx); Mixed hyperlipidemia; Hypothyroidism, unspecified type; Tobacco use; Coronary artery disease involving citizen pot[place]atomi coronary artery of citizen pot[place] heart without angina pectoris; Essential hypertension; Other chronic pulmonary embolism without acute cor pulmonale (HCC) 05/14/2024 Orders Only [facility] Radiology 1 [place] [address] 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 RN Presence of IVC filter (Primary Dx) 05/14/2024 Telephone [facility] Radiology 1 [place] [address] 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 RN 05/11/2024 Orders Only [facility] [address] [place] [phone] Adan Caldera MD 05/10/2024 11:00 AM CDT Ancillary Procedure [facility] V[facility] Lab at the [facility] [address] [facility] 8th [place] [address] [place] [phone] Personal history of PE (pulmonary embolism) 05/05/2024 Telephone [facility] Radiology 1 [place] [address] 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 RN 05/04/2024 Orders Only [facility] Radiology 1 [place] [address] 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 RN Acute pulmonary embolism without acute cor pulmonale, unspecified pulmonary embolism type (HCC) (Primary Dx) 05/03/2024 1:00 PM SECRETARY OF POLICE Office Visit [facility] Radiology, Interventional Radiology [address] [place] [phone] Jumana Parker MD S/P insertion of IVC (inferior vena caval) filter (Primary Dx); Other chronic pulmonary embolism without acute cor pulmonale (HCC) 04/19/2024 2:30 PM SECRETARY OF POLICE Office Visit [facility] Cardiology [address] [facility] 8th [place] [address] [place] [phone] Andrés Black NP Coronary artery disease involving citizen potawatomi coronary artery of citizen potaw[place]i heart without angina pectoris (Primary Dx); Mixed hyperlipidemia; Essential hypertension; Elevated left ventricular end-diastolic pressure (LVEDP) 04/19/2024 10:00 AM SECRETARY OF POLICE [facility] [address] [place] [address] Hematoma of groin, subsequent encounter 04/19/2024 Telephone [facility] Radiology 1 [facility] [place] [address] 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 RN 04/16/2024 [facility]phone [facility] [address] [facility] [address] [place] [address] Idania Han RN APPT CONFIRMATION 04/13/2024 [facility] [address] [facility] [place] [phone] Ida Chawla, [place] 04/09/2024 11:55 AM SECRETARY OF POLICE Lab [facility] ([facility] [address] [place] [phone] Type 2 diabetes mellitus without complication, without long-term current use of insulin (HCC) 04/08/2024 3:00 PM SECRETARY OF POLICE Office Visit [facility] Pulmonary [address] [facility] Medical [facility] Building [address] [place] [address] Fani Huff MD Acute pulmonary embolism without acute cor pulmonale, non occlusive 01/18/24 (HCC) (Primary Dx); GONGORA (dyspnea on exertion); S/P insertion of IVC (inferior vena caval) filter; Former tobacco use; Pulmonary emphysema, unspecified emphysema type (HCC); Personal history of PE (pulmonary embolism) 04/08/2024 11:47 AM SECRETARY OF POLICE - 04/08/2024 11:59 PM SECRETARY OF POLICE Hospital Encounter [facility] PFT Lab [address] [facility] Medical Office [address] [place] [address] Acute pulmonary embolism without acute cor pulmonale, unspecified pulmonary embolism type (HCC) Discharge Disposition: Discharge to home or self care 04/08/2024 11:03 AM SECRETARY OF POLICE - 04/08/2024 11:59 PM SECRETARY OF POLICE Hospital Encounter [facility] [address] [place] [address] Acute pulmonary embolism without acute cor pulmonale, unspecified pulmonary embolism type (HCC) Discharge Disposition: Discharge to home or self care 04/07/2024 Telephone [facility] [address] [place], [place] [address] [place] [address] Ida Chawla MA 04/07/2024 Orders Only [facility] [address] [place], [place] [address] [place] [address] Ida Chawla MA Type 2 diabetes mellitus without complication, without long-term current use of insulin (HCC) (Primary Dx) 04/06/2024 2:35 PM SECRETARY OF POLICE Lab [facility] ([facility]) [address] [place] [phone] Type 2 diabetes mellitus without complication, without long-term current use of insulin (HCC); Essential hypertension 04/06/2024 12:30 PM SECRETARY OF POLICE Office Visit [facility] [address] [place] [phone] Adan Caldera MD Type 2 diabetes mellitus without complication, without long-term current use of insulin (HCC) (Primary Dx); Mixed hyperlipidemia; Hypothyroidism, unspecified type; Essential hypertension; Other acute pulmonary embolism without acute cor pulmonale (HCC) 03/23/2024 Orders Only [facility] Scheduling [address] [place] [address] Fani Huff MD Acute pulmonary embolism without acute cor pulmonale, unspecified pulmonary embolism type (HCC) (Primary Dx) 03/12/2024 Orders Only [facility] Pulmonary [address] [place] [address] 8th [place] [address] [place] [address] Fani Huff MD Acute pulmonary embolism without acute cor pulmonale, unspecified pulmonary embolism type (HCC) (Primary Dx) 03/08/2024 Telephone [facility] [address] [place], [place] [address] [place] [address] Saira Mcguire NP 03/05/2024 2:21 PM SECRETARY OF POLICE - 03/05/2024 11:59 PM SECRETARY OF POLICE Hospital Encounter [facility] ([facility] [address] [place] [address] Left inguinal pain; Right inguinal pain; S/P IVC filter Discharge Disposition: Discharge to home or self care from Last 3 Months Surgical History Surgery [...] on file Legal Sex Female 12:12 AM SECRETARY OF POLICE Gender Identity Not on file Sexual Orientation Not on file Obstetrics History Last Filed Vital Signs Vital Sign Reading Time Taken Comments Blood Pressure 150/75 05/26/2024 9:17 AM CDT Pulse 78 05/26/2024 9:17 AM CDT Temperature 36.2 C (97.1 F) 04/19/2024 9:00 AM SECRETARY OF POLICE Respiratory Rate 29 06/02/2023 11:55 AM CDT Oxygen Saturation 97% 04/19/2024 2:21 PM SECRETARY OF POLICE Inhaled Oxygen Concentration - - Weight 74.4 [...] Health Maintenance Due Date Last Done Comments Depression Screening 1955 Dilated Eye Exam 1955 DTaP/Tdap/Td Vaccine (1 - Tdap) 1964 Hepatitis B Screening 12/29/1971 Well Visit 65+ 2018 Influenza Vaccine (#1) 2023 Fall Risk Assessment [...] in the future) Foot Exam 02/22/2025 02/23/2024 Breast Cancer Screening-Mammogram 03/02/2025 07/05/2020 Postponed from 07/05/2021 (Patient declined, but will receive in the future) eGFR 04/06/2025 04/06/2024, 02/01, 01/15/2024, Additional history exists Colon Cancer Screening-Colonoscopy 04/02/2033 04/02/2023 Hepatitis C Screening Completed 01/15/2024 Medical Devices Implanted Type Area Binder Stripper Machine Device Identifier Shelf Expiration Date Model / Serial / Lot Medtronic [employer] X [id number] Resolute [place]ann[place] 3.5mm 2.1-2.7fr 26mm 140cm Rapid Exchange - [id number] - [id number] Implanted:Qty : 1 on 02/15/2021 by Tyrel Flores MD at [facility] Stent Left: Coronary Medtronic Inc 10/22/2021 [id number] / [id number] / [id number] Description:LAD Medtronic [employer] X [id number] Resolute [place] 3.5mm 2.1-2.7fr 26mm 140cm Rapid Exchange - [id number] - [id number] Implanted:Qty : 1 on 02/15/2021 by Tyrel Flores MD at [facility] Stent Left: Coronary Medtronic Inc 08/23/2021 [id number] / [id number] Description:LAD Med[employer]onic [employer] X [id number] Resolute [place] 3mm 2.1-2.7fr 22mm 140cm Rapid Exchange Radiopaque - [id number] - [id number] Implanted:Qty : 1 on 02/15/2021 by Tyrel Flores MD at [facility] Stent Left: Coronary Medtronic Inc 12/08/2023 [id number] / [id number] / [id number] Description:LAD [employer] Angio-Seal Vip 6fr Closere Device [id number] - [id number] - [id number] Implanted:Qty : 1 on 06/02/2023 by Tyrel Flores MD at [facility] Vascular Closure Device [employer] 01/01/2024 [id number] / [id number] / [id number] Procedures Procedure Name Priority Date/Time Associated Diagnosis Comments SCAN - LABS 05/11/2024 6:04 PM CDT US VEIN DUPLEX LOWER EXTREMITY BILATERAL COMPLETE Schedule Routine, Read Routine (OP Routine) 05/10/2024 10:08 AM CDT Personal history of PE (pulmonary embolism) PROTEIN ELECTROPHORESIS, WITH REFLEX, SERUM Routine 04/09/2024 11:15 AM SECRETARY OF POLICE Type 2 diabetes mellitus without complication, without long-term current use of insulin (HCC) PULMONARY FUNCTION TEST (PFT) Routine 04/08/2024 12:59 PM SECRETARY OF POLICE Acute pulmonary embolism without acute cor pulmonale, unspecified pulmonary embolism type (HCC) XR CHEST PA LATERAL 2 VIEWS Schedule Routine, Read Routine (OP Routine) 04/08/2024 11:13 AM SECRETARY OF POLICE Acute pulmonary embolism without acute cor pulmonale, unspecified pulmonary embolism type (HCC) EGFR Routine 04/06/2024 1:23 PM SECRETARY OF POLICE Type 2 diabetes mellitus without complication, without long-term current use of insulin (HCC) Essential hypertension COMPREHENSIVE METABOLIC PANEL Routine 04/06/2024 1:23 PM SECRETARY OF POLICE Type 2 diabetes mellitus without complication, without long-term current use of insulin (HCC) Essential hypertension POCT HEMOGLOBIN A1C Routine 04/06/2024 12:54 PM SECRETARY OF POLICE Type 2 diabetes mellitus without complication, without long-term current use of insulin (HCC) US GROIN PSEUDO DUPLEX LEFT Schedule Routine, Read Routine (OP Routine) 03/05/2024 2:56 PM SECRETARY OF POLICE Left inguinal pain Right inguinal pain S/P IVC filter US GROIN PSEUDO DUPLEX RIGHT Schedule Routine, Read Routine (OP Routine) 03/05/2024 2:56 PM SECRETARY OF POLICE Left inguinal pain Right inguinal pain S/P IVC filter HEPATITIS C ANTIBODY Routine 01/15/2024 2:49 PM SECRETARY OF POLICE Type 2 diabetes mellitus without complication, without long-term current use of insulin (HCC) Essential hypertension Coronary artery disease involving citizen [place] coronary artery of citizen pot[place]i heart without angina pectoris Hypothyroidism, unspecified type Mixed hyperlipidemia ALBUMIN CREATININE RATIO, URINE Routine 01/15/2024 2:49 PM SECRETARY OF POLICE Type 2 diabetes mellitus without complication, without long-term current use of insulin (HCC) Essential hypertension Coronary artery disease involving citizen [place] coronary artery of citizen pot[place] heart without angina pectoris Hypothyroidism, unspecified type [...] AM CDT Narrative 05/10/2024 2:19 PM CDT [facility] - Department of Vascular Surgery, Vascular Laboratory [address] [place] [address] Lower Extremity Venous Ultrasound Report Patient Name: DEBIBE MEIER : 1955 (68y 4m) Study Date: 05/10/2024 9:48:22 AM Gender: F Tech: ID Location: [facility] Ref Provider: JUMANA PARKER Quality: [...] Personal history of pulmonary embolism. FINDINGS: Performing Watch Assembly Inspector: Gabbi Sutton RVT. Bilateral: Venous Doppler signals [...] above. Electronically Signed By: Adan Argueta MD [facility] [phone] 05/10/2024 1:30:59 PM CDT Procedure Note Adan Argueta MD - 05/10/2024 [employer] [facility] - Department of Vascular Surgery,Vascular Laboratory [address] [place] [address] Lower Extremity Venous Ultrasound Report Patient Name: DEBBIE MEIER : 1955 (68y 4m) Study Date: 05/10/2024 9:48:22 AM Gender: F Tech: IA Location: [facility] Ref Provider: JUMANA PARKER Quality: [...] Personal history of pulmonary embolism. FINDINGS: Performing Watch Assembly Inspector: Gabbi Sutton RVT. Bilateral: Venous Doppler signals [...] above. Electronically Signed By: Adan Argueta MD FACS [phone] 05/10/2024 1:30:59 PM CDT us Jumana Parker MD IMG US PROCEDURES Final Re sult * (ABNORMAL) Protein electrophoresis with reflex, serum with interpretation (04/09/2024 11:15 AM SECRETARY OF POLICE) Protein, sr 8.9(H) 6.2 - 8.2 g/dL Albumin 4.7 3.2 - 5.0 g/dL [facility] Alpha-1 globulin 0.3 0.2 - 0.4 g/dL [facility] Alpha-2 globulin 1.1(H) 0.5 - 1.0 g/dL [facility] Beta-1 globulin 0.6 0.3 - 0.6 g/dL [facility] Beta-2 globulin 0.5 0.2 - 0.6 g/dL [facility] Gamma globulin 1.7 0.5 - 1.7 g/dL [facility] SPEP interp Please see comment [facility] Comment: No apparent monoclonal peak Reviewed and signed by Luis Infante MD 04/12/2024 Blood 04/09/2024 11:1 5 AM SECRETARY OF POLICE 04/09/2024 11:37 AM SECRETARY OF POLICE us Adan Caldera MD LAB BLOOD ORDERABLES Final Re sult [facility] Department [place] [address] * Pulmonary Function Test - (04/08/2024 12:59 PM SECRETARY OF POLICE) FVC PRE 2.19 L [facility] FVC %PRE PRED 94 % [facility] FVC POST 2.37 L [facility] FVC %POST PRED 102 % [facility] FEV1 PRE 1.53 L [facility] FEV1 %PRE PRED 83 % [facility] FEV1 POST 1.63 L [facility] FEV1 %POST PRED 89 % [facility] FEV1/FVC PRE 69.9 % [facility] FEV1/FVC POST 68.9 % [facility] FRC PL PRE 2.72 L [facility] FRC PL %PRE PRED 107 % [facility] RV PRE 2.15 L [facility] RV %PRE PRED 107 % [facility] TLC PRE 4.34 L [facility] TLC %PRE PRED 97 % [facility] DLCO PRE 8.1 ml/min/mmH g [facility] DLCO %PRE PRED 47 % [facility] FIO2 % 21.00 % [facility] PaO2 88.0 mmHg [facility] PaCO2 34.0 mmHg [facility] pH 7.45 [facility] A-aDO2 POC 19.0 mmHg [facility] METHGB % 0.6 % [facility] COHb POC 1.8 % [facility] HCO3 23.6 mEq/L [facility] Anatomical Region Laterality Modality PFT 04/08/2024 12:0 3 PM SECRETARY OF POLICE Narrative 04/09/2024 6:42 PM SECRETARY OF POLICE Table formatting from the original result was not included. [facility] Division of Pulmonary & Critical Care Medicine [address] [place] [address]; [place] [facility]; [place] [address]; [phone] Pulmonary Function Laboratory Pulmonary Stress Test Simple/Oxygen [...] Work [distance (m) x body wt (kg)]: 64578 kg.m (normal >60,000kg.m) Oxygen required to maintain [...] with the written final report. PFT performed at:->[facility] U Adult PFT Lab- [facility] Procedure:->Spirometry Procedure:->Spirometry with Bronchodilator Procedure:->Oxygen Assessment [...] and %HbO2 is age dependent. However, the [facility] Pulmonary Function Laboratory defines hypoxemia as a PaO2 <56 mm Hg or a %HbO2 <89%. Starting on March of 2024 the [facility] Pulmonary Function Laboratory utilizes race neutral GLI Global normative equations. Fani Huff MD PFT ORDERABLES Final R esult * XR Chest Pa Lateral 2 Views (04/08/2024 11:13 AM SECRETARY OF POLICE) Anatomical Region Laterality Modality Body, Chest N/A Computed Radiogr aphy 04/08/2024 11:1 9 AM SECRETARY OF POLICE Impressions 04/08/2024 11:19 AM SECRETARY OF POLICE Comparison is made to prior chest radiograph 12/13/2020. Heart size is normal. Lungs are clear. Surgical clips noted within the upper abdomen. There is an inferior vena cava filter. Electronically signed by: Jonas Hernadez M.D. Narrative 04/08/2024 11:19 AM SECRETARY OF POLICE EXAMINATION: 2 view chest radiograph Procedure Note [...] Final Result * eGFR (04/06/2024 1:23 PM SECRETARY OF POLICE) eGFR 82 >=60 mL/min/1. 73 m2 Comment: [...] last reviewed 2021. Blood 04/06/2024 1:23 PM SECRETARY OF POLICE 04/06/2024 1:51 PM SECRETARY OF POLICE us Adan Caldera MD LAB BLOOD ORDERABLES Final Re sult [facility] Department [place] [address] * (ABNORMAL) Comprehensive metabolic panel (04/06/2024 1:23 PM SECRETARY OF POLICE) Sodium 139 135 - 145 mmol/L Potassium, pl 4.1 3.3 - 4.9 mmol/L [facility] Chloride 98 97 - 110 mmol/L [facility] CO2 25 22 - 32 mmol/L [facility] Anion gap 16(H) 2 - 15 mmol/L [facility] BUN 28(H) 6 - 25 mg/dL [facility] Creatinine 0.78 0.60 - 1.10 mg/dL [facility] Glucose 260(H) 70 - 199 mg/dL [facility] Comment: Interpretive Data Fasting glucose >/= [...] 2022. Calcium 9.5 8.5 - 10.3 mg/dL [facility] Bilirubin, total 0.6 0.1 - 1.2 mg/dL [facility] Protein, pl 8.6(H) 6.5 - 8.5 g/dL [facility] Albumin 4.5 3.5 - 5.0 g/dL [facility] Alk phos 104 40 - 130 Units/L [facility] ALT 20 7 - 45 Units/L [facility] AST 25 10 - 45 Units/L [facility] Blood 04/06/2024 1:23 PM SECRETARY OF POLICE 04/06/2024 1:43 PM SECRETARY OF POLICE us Adan Caldera MD LAB BLOOD ORDERABLES Final Re sult [facility] Department [place] [address] * (ABNORMAL) POCT hemoglobin A1c (04/06/2024 12:54 PM SECRETARY OF POLICE) Hemoglobin A1C, POC 6.9 4.0 - 5.6 % Capillary blood 04/06/2024 1 2:54 PM SECRETARY OF POLICE us Adan Caldera MD POINT OF CARE TEST ORDERABLES Final Result * US Groin Pseudo Right (03/05/2024 2:56 PM SECRETARY OF POLICE) Anatomical Region Laterality Modality Vascular Right Ultrasound 03/05/2024 3:43 PM SECRETARY OF POLICE Impressions 03/05/2024 3:43 PM SECRETARY OF POLICE 1. No pseudoaneurysm or arteriovenous fistula in the right or left groin. 2. There is a left groin hematoma. Electronically signed by: Vickie Kramer M.D. Narrative 03/05/2024 3:43 PM SECRETARY OF POLICE EXAMINATION: LIMITED right and left GROIN SONOGRAM [...] Groin Pseudo Duplex Left (03/05/2024 2:56 PM SECRETARY OF POLICE) Anatomical Region Laterality Modality Vascular Left Ultrasound 03/05/2024 3:43 PM SECRETARY OF POLICE Impressions 03/05/2024 3:43 PM SECRETARY OF POLICE 1. No pseudoaneurysm or arteriovenous fistula in the right or left groin. 2. There is a left groin hematoma. Electronically signed by: Vickie Kramer M.D. Narrative 03/05/2024 3:43 PM SECRETARY OF POLICE EXAMINATION: LIMITED right and left GROIN SONOGRAM [...] Hepatitis C antibody Blood (01/15/2024 2:49 PM SECRETARY OF POLICE) Hep C Ab Nonreactive Nonreactive Comment:Antibodies to HCV no t detected. Does NOT exclude the possibility of recent exposure to HCV. Current interpretive data was last revised on 21 Blood 01/15/2024 2:49 PM SECRETARY OF POLICE 01/15/2024 3:18 PM SECRETARY OF POLICE us Adan Caldera MD LAB MICROBIOLOGY - GENERAL OR DERABLES Final Result [facility] Department [place] [address] [phone] * (ABNORMAL) Albumin Creatinine Ratio, Urine (01/15/2024 2:49 PM SECRETARY OF POLICE) Albumin Ur 13.4 mg/L Comment: Interpretive Data No reference range established. Current interpretive data was last revised 2018. Creatinine Ur 42.5 mg/dL [facility] Comment: Interpretive Data No reference range established. Current interpretive data was last revised 2018. Albumin Creatinine Ratio, Ur 32(H) 1 - 29 mg/g [facility] Urine 01/15/2024 2:49 PM SECRETARY OF POLICE 01/15/2024 3:34 PM SECRETARY OF POLICE us Adan Caldera MD LAB URINE ORDERABLES Final Re sult [facility] Department [place] [address] * POCT lipid panel (10/13/2023 2:49 PM [...] Most Recently Relevant to Health Maintenance Insurance [facility] MEDICARE ADVANTAGE [facility] MEDICARE Address: [facility] [address] [place] [address] [facility] MED[facility] Address: [address] [address] [place] [address] [employer] MEDICARE ADVANTAGE [facility] MEDICARE Address: [address] [address] [place] [address] Advance Directives For more information, please contact: [phone] * Full Code (Latest Code Status on File) Date Activated Date Inactivated Comments 02/15/2021 2:51 PM 02/15/2021 10:17 PM Care Teams Airline Managerial Supervisor Relationship Specialty Start Date End Date Adan Caldera MD [address] [address] PCP - General 06/19/17
--- OUTSIDE RECORDS SUMMARY | 2024-06-01 13:02 | XMS_ITS | Continuity of Care Document ---
Author Organization [facility] Address [address] [place] [address] [facility] [address] [place] [address] Phone Care Team Providers Care Assistant Store Leader Name Role Phone Tomasz Cortez Unavailable Unavailable Procedures Procedure Date Eye Exam & Treatment Refraction Advance Directives Directive Yes / No Effective Date File Name No Information Encounters Encounter Description Practice Location Reason(s) For Visit Diagnoses Date Provider Providers Copied on Encounter [facility], [address] [place] [address] [address], [place], [place], [id number], [place] tel:[phone] [facility] No Information [address] [facility] [address], [place], [address], [place]. tel:[phone] Family History Family Member Type Diagnosis Age At Onset No Information Payers Payer name Insurance type Covered libertarian ID Authoriza tion(s) No Information Social History Type Description Quantity Date Captured Comments Sex Female Smoking Status No Information Chief Complaint And Reason For Visit No Information Reason For Referral Reason For Referral No Information History Of Present Illness Encounter Date Complaint History Of Prese nt Illness No Information Functional Status Date Functional Assessmen t No Information Instructions Date Instruction Additional Infor mation No Information Assessments Type Assessment Date No Information Patient Care Teams Name Effective Dates (start - stop) Status Members No Information
[2024-06-01 15:30] LABS: Toxigenic C. Diff POSITIVE (NEGATIVE)
== END 2024-06-01 11:42 | disposition home or self-care (01) ==
LOC: ANHLAB 11:42
PROVIDERS: PCP Internal Medicine; Visit Provider Nurse Practitioner Family
DX: Z86.19 Personal history of other infectious and parasitic diseases (principal)
CPT/HCPCS: 87493